=== PATIENT | male | born 1945 | race Caucasian/White ===

== ENCOUNTER 2019-03-26 04:38 | Inpatient (IN) | payer OTHER, MEDICARE, SELFPAY ==
[2019-03-26] VITALS (18 sets, daily range): BP systolic 102–136; BP diastolic 56–85; PULSE 62–89; RESP 16–26; TEMP 36.5–36.7; O2SAT 95–100; BMI 20.2
--- NOTE | 2019-03-26 04:41 | ED_ITS ---
Entered by Mercedes Trent, acting as scribe for Documented by User: Evin Arias MD 03/26/19 17:59 HPI - SOB/Dyspnea General: Chief Complaint: Shortness of Breath/Dyspnea Stated Complaint: RESP/ABD/CP Time Seen by Provider: 03/26/19 04:44 Source: EMS Mode of arrival: EMS Limitations: no limitations History of Present Illness: HPI Narrative: 73 yo m came to the er by ems for cough, chest pain and mild abd pain. Onset was an hour ago. MD elicited complaint: shortness of breath, cough and chest pain Onset (ago): hour(s) (1 hour ago) Timing: constant Severity: mild Associated symptoms: Reports fever(s); Deny chest pain or nausea Related Data: Home oxygen amount: none Review of Systems Const: Reports: fever, chills and other (cough) Eyes: Denies: change in vision ENMT: Denies: throat pain Card: Denies: chest pain Resp: Reports: shortness of breath, productive cough and wheezing (rt side) GI: Denies: nausea : Denies: difficulty urinating Musc: Denies: neck pain Skin/Breast: Denies: rash Neuro: Denies: weakness in extremities Psych: Denies: anxiety Endo: Denies: tired all the time Tae/Lymph: Denies: easy bruising All/Imm: Denies: itchy eyes PFSH ED PFSH: Statuses (acute, chronic, etc) shown below reflect problem list status as previously entered and may not be historically accurate Surgical History (Updated 03/26/19 @ 17:59 by Shade Donohue MD) H/O laminectomy (Acute) L5-S1 HEMILANIECTOMIES H/O spinal fusion (Acute) C5-C6 History of cystoscopy (Acute) Hx laparoscopic cholecystectomy (Acute) S/P ureteral stent placement (Acute) Family History (Updated 03/26/19 @ 13:43 by Turner Singh MD) Father CAD (coronary artery disease) Social History (Updated 03/26/19 @ 13:44 by Turner Singh MD) Smoking and tobacco status: current every day smoker Alcohol intake: never Substance/Drug Use: never Physical Exam Const: COMMON NORMALS: no apparent distress, oriented x3 and healthy appearing HENMT: COMMON NORMALS: normocephalic and external nose normal HEAD & SCALP: normocephalic NOSE: external nose normal Eye: COMMON NORMALS: PERRL PUPIL: Yes PERRL Neck/C-Spine: COMMON NORMALS: full ROM and no lymphadenopathy Chest: COMMONS NORMALS: inspection of chest normal Resp: COMMON NORMALS: no use of accessory muscles EFFORT & INSPECTION: Yes respiratory distress (mild) AUSCULTATION: wheezes Cardio: COMMON NORMALS: regular rate and regular rhythm RATE: regular rate RHYTHM: regular rhythm GI: COMMON NORMALS: normal to inspection, nondistended, normoactive bowel sounds, soft to palpation, non-tender and no masses PALPATION: Yes soft : COMMON NORMALS: Yes no CVA tenderness BLADDER/KIDNEY EXAM: Yes no CVA tenderness Back/Pelvis: COMMON NORMALS: no CVA tenderness THORACIC SPINE/UPPER BACK: Yes normal to inspection Extremity: COMMON NORMALS: normal to inspection, full ROM and normal capillary refill Neuro: COMMON NORMALS: oriented x3 Psych: COMMON NORMALS: mental status grossly normal and cooperative Skin: COMMON NORMALS: no rashes or lesions noted GENERAL SKIN EXAM: no rashes or lesions noted Course Vital Signs: Vital signs: Vital Signs Temperature 97.7 F 03/26/19 15:25 Pulse Rate 77 03/26/19 15:25 Respiratory Rate 20 H 03/26/19 17:03 Blood Pressure 134/75 03/26/19 15:25 Pulse Oximetry 96 03/26/19 15:25 MDM - SOB/Dyspnea MDM Narrative: Medical decision making narrative: Patient presents for shortness of breath along with COPD. Patient given breathing treatments here and care turned over to Dr. Lujan at shift change. Lab Data: Labs: Lab Results 03/26/19 03/26/19 03/26/19 Range/Units 05:10 05:10 08:17 WBC 13.9 H (4.0-10.0) 10^3/ uL RBC 3.61 L (4.1-5.3) 10^6/u L Hgb 11.7 (11.7-16.6) g/dL Hct 36.3 L (42.0-52.0) % MCV 100.6 H (80-94) fL MCH 32.4 (28.0-34.0) pg MCHC 32.2 (30.0-36.0) g/dL RDW 13.3 (12.1-15.1) % Plt Count 446 H (130-400) 10^3/c mm MPV 9.5 (7.4-10.4) fL Neut % (Auto) 80.3 % Lymph % (Auto) 10.0 % [place] % (Auto) 5.7 % Eos % (Auto) 3.1 % Baso % (Auto) 0.1 % Neut # (Auto) 11.2 H (1.8-7.7) 10^3/u L Lymph # (Auto) 1.4 (0.8-4.8) 10^3/u L [place] # (Auto) 0.8 (0.2-0.9) 10^3/u L Eos # (Auto) 0.4 (0.0-0.8) 10^3/u L Baso # (Auto) 0.0 (0.0-0.1) 10^3/u L Nucleated RBC % (a uto) 0 % Nucleated RBCs # 0.0 /100WBC Sodium 139 (136-145) mmol/L Potassium 5.0 (3.5-5.1) mmol/L Chloride 102 (98-107) mmol/L Carbon Dioxide 26 (22-29) mmol/L Anion Gap 16.0 (5-19) BUN 48 H (8-23) mg/dL Creatinine 2.6 H (0.7-1.2) mg/dL Glucose 120 H (74-106) mg/dL Calcium 9.8 (8.8-10.2) mg/Dl Total Bilirubin 0.2 (0.15-1.2) mg/dL AST 32 (0-40) U/L ALT 43 H (0-41) U/L Alkaline Phosphata se 108 (40-130) IU/L NT-Pro-B Natriuret Pep 58 (0-125) pg/mL Total Protein 6.9 (6.6-8.7) g/dL Albumin 4.6 (3.5-5.2) g/dL Globulin 2.3 (1.3-4.6) g/dL Lipase 84 H (13-60) U/L Urine Color Red (Yellow) Urine Appearance Bloody A (CLEAR) Urine pH 6.5 (5-7) Ur Specific Gravit y 1.010 (1.005-1.030) Urine Protein 1+ H (Negative) Urine Glucose (UA) Norm (Normal) Urine Ketones Negative (Negative) Urine Occult Blood 3+ H (Negative) Urine Nitrate Negative (Negative) Urine Bilirubin Neg (Negative) Urine Urobilinogen Norm (Negative) mg/dL Ur Leukocyte Grace ase 2+ H (Negative) Urine RBC >100 H (0-2) /hpf Urine WBC 25-40 H (0-5) /hpf Ur Squamous Epith Cells 0-4 H (0-5) Urine Bacteria Trace (NONE) Urine Mucus Trace Discharge Plan Discharge Patient Disposition: Placed in Observation Admit Provider: Turner Singh Clinical Impression: Acute exacerbation of chronic obstructive airways disease, Acute kidney injury, Cystitis, Benign prostatic hyperplasia, Acute urinary retention Condition: Stable Referrals: Mikaela Turk FNP-C [Primary Care Provider] - Discharge Date/Time: 03/26/19 15:15 Sign Out Sign Out Data: Patient Sign Out occurred on 03/26/19 at 07:09. Patient's care was discussed, and care was transferred from Evin Arias MD to Dileep Verduzco DO. Sign Out Comment: . Last updated by Evin Arias MD at 03/26/19 07:02 Coding Level of Care Code ED Retail Associate for Chg Fwd Exam Problem Focused Documented by User: Dileep Verduzco DO 03/26/19 15:53 HPI - SOB/Dyspnea General: Chief Complaint: Shortness of Breath/Dyspnea Stated Complaint: RESP/ABD/CP Time Seen by Provider: 03/26/19 04:44 PFSH ED PFSH: Statuses (acute, chronic, etc) shown below reflect problem list status as previously entered and may not be historically accurate Surgical History (Updated 03/26/19 @ 17:59 by Shade Donohue MD) H/O laminectomy (Acute) L5-S1 HEMILANIECTOMIES H/O spinal fusion (Acute) C5-C6 History of cystoscopy (Acute) Hx laparoscopic cholecystectomy (Acute) S/P ureteral stent placement (Acute) Family History (Updated 03/26/19 @ 13:43 by Turner Singh MD) Father CAD (coronary artery disease) Social History (Updated 03/26/19 @ 13:44 by Turner Singh MD) Smoking and tobacco status: current every day smoker Alcohol intake: never Substance/Drug Use: never Physical Exam Const: COMMON NORMALS: oriented x3 and alert GENERAL APPEARANCE: cooperative, comfortable and disheveled NUTRITIONAL APPEARANCE: underweight ORIENTATION/CONSCIOUSNESS: Yes awake, Yes oriented to person, Yes oriented to place and Yes oriented to time HENMT: COMMON NORMALS: normocephalic, head/scalp atraumatic, hearing grossly normal bilaterally, external ears normal, EAC's normal, TM's normal bilaterally and external nose normal HEAD & SCALP: normocephalic and atraumatic NOSE: external nose normal EXTERNAL EAR: Yes external ears normal EXTERNAL AUDITORY CANAL: EAC's normal TYMPANIC MEMBRANE: TM's normal bilaterally MOUTH: oral and palatal mucosa normal, lip normal and tongue normal THROAT: posterior oropharynx normal and tonsils normal Eye: COMMON NORMALS: PERRL, EOMs intact bilaterally, conjunctivae normal and no scleral icterus CONJUNCTIVA: Yes conjunctivae normal PUPIL: Yes PERRL Neck/C-Spine: COMMON NORMALS: full ROM, no lymphadenopathy, supple, no meningeal signs and thyroid normal THYROID: thyroid normal and asymmetrical Lymph: LYMPHATIC: no lymphadenopathy noted Resp: AUSCULTATION: rhonchi throughout and wheezes throughout Cardio: COMMON NORMALS: regular rate and regular rhythm RATE: regular rate RHYTHM: regular rhythm HEART SOUNDS: no murmurs GI: COMMON NORMALS: normal to inspection, nondistended, normoactive bowel sounds, soft to palpation and no hepatosplenomegaly PALPATION: Yes soft and Yes no hepatosplenomegaly : COMMON NORMALS: Yes no CVA tenderness BLADDER/KIDNEY EXAM: Yes no CVA tenderness Back/Pelvis: COMMON NORMALS: no CVA tenderness LUMBAR SPINE/LOWER BACK: Yes normal to inspection Extremity: COMMON NORMALS: no clubbing, cyanosis or edema, no calf tenderness and no pedal edema Neuro: COMMON NORMALS: oriented x3 SENSORIUM/ORIENTATION: Yes alert, Yes oriented to person, Yes oriented to place and Yes oriented to time MENINGEAL SIGNS: Yes no meningeal signs Skin: COMMON NORMALS: no rashes or lesions noted and skin turgor normal GENERAL SKIN EXAM: no rashes or lesions noted and turgor normal Course ED course: Care assumed from Dr. Arias. Chart reviewed patient has mild elevation of white count also has borderline hyperkalemia and acute kidney injury with an elevated BUN. His breathing has improved with the treatments at this point. Organ to go ahead and put him on obs have discussed with the ospitalist they will see the patient reviewed get his orders written. Vital Signs: Vital signs: Vital Signs Temperature 97.7 F 03/26/19 15:25 Pulse Rate 77 03/26/19 15:25 Respiratory Rate 20 H 03/26/19 17:03 Blood Pressure 134/75 03/26/19 15:25 Pulse Oximetry 96 03/26/19 15:25 MDM - SOB/Dyspnea Lab Data: Labs: Lab Results 03/26/19 03/26/19 03/26/19 Range/Units 05:10 05:10 08:17 WBC 13.9 H (4.0-10.0) 10^3/ uL RBC 3.61 L (4.1-5.3) 10^6/u L Hgb 11.7 (11.7-16.6) g/dL Hct 36.3 L (42.0-52.0) % MCV 100.6 H (80-94) fL MCH 32.4 (28.0-34.0) pg MCHC 32.2 (30.0-36.0) g/dL RDW 13.3 (12.1-15.1) % Plt Count 446 H (130-400) 10^3/c mm MPV 9.5 (7.4-10.4) fL Neut % (Auto) 80.3 % Lymph % (Auto) 10.0 % [place] % (Auto) 5.7 % Eos % (Auto) 3.1 % Baso % (Auto) 0.1 % Neut # (Auto) 11.2 H (1.8-7.7) 10^3/u L Lymph # (Auto) 1.4 (0.8-4.8) 10^3/u L [place] # (Auto) 0.8 (0.2-0.9) 10^3/u L Eos # (Auto) 0.4 (0.0-0.8) 10^3/u L Baso # (Auto) 0.0 (0.0-0.1) 10^3/u L Nucleated RBC % (a uto) 0 % Nucleated RBCs # 0.0 /100WBC Sodium 139 (136-145) mmol/L Potassium 5.0 (3.5-5.1) mmol/L Chloride 102 (98-107) mmol/L Carbon Dioxide 26 (22-29) mmol/L Anion Gap 16.0 (5-19) BUN 48 H (8-23) mg/dL Creatinine 2.6 H (0.7-1.2) mg/dL Glucose 120 H (74-106) mg/dL Calcium 9.8 (8.8-10.2) mg/Dl Total Bilirubin 0.2 (0.15-1.2) mg/dL AST 32 (0-40) U/L ALT 43 H (0-41) U/L Alkaline Phosphata se 108 (40-130) IU/L NT-Pro-B Natriuret Pep 58 (0-125) pg/mL Total Protein 6.9 (6.6-8.7) g/dL Albumin 4.6 (3.5-5.2) g/dL Globulin 2.3 (1.3-4.6) g/dL Lipase 84 H (13-60) U/L Urine Color Red (Yellow) Urine Appearance Bloody A (CLEAR) Urine pH 6.5 (5-7) Ur Specific Gravit y 1.010 (1.005-1.030) Urine Protein 1+ H (Negative) Urine Glucose (UA) Norm (Normal) Urine Ketones Negative (Negative) Urine Occult Blood 3+ H (Negative) Urine Nitrate Negative (Negative) Urine Bilirubin Neg (Negative) Urine Urobilinogen Norm (Negative) mg/dL Ur Leukocyte Grace ase 2+ H (Negative) Urine RBC >100 H (0-2) /hpf Urine WBC 25-40 H (0-5) /hpf Ur Squamous Epith Cells 0-4 H (0-5) Urine Bacteria Trace (NONE) Urine Mucus Trace Discharge Plan Discharge Patient Disposition: Placed in Observation Admit Provider: Turner Singh Clinical Impression: Acute exacerbation of chronic obstructive airways disease, Acute kidney injury, Cystitis, Benign prostatic hyperplasia, Acute urinary retention Condition: Stable Referrals: Mikaela Turk FNP-C [Primary Care Provider] - Discharge Date/Time: 03/26/19 15:15 Sign Out Sign Out Data: Patient Sign Out occurred on 03/26/19 at 07:09. Patient's care was discussed, and care was transferred from Evin Arias MD to Dileep Verduzco DO. Sign Out Comment: . Last updated by Evin Arias MD at 03/26/19 07:02 Coding Level of Care Code ED Retail Associate for Chg Fwd Exam Problem Focused The documentation recorded by the Twan huddleston Stephanie Lyn, accurately reflects the service I personally performed and the decisions made by me, Evin Arias MD Mar 26, 2019 04:38
--- NOTE | 2019-03-26 04:44 | XR_ITS ---
WS: [id number] CHEST XRAY TECHNIQUE: Portable chest. CLINICAL INFORMATION: cough COMPARISON: FINDINGS: Heart: Normal cardiac silhouette. Lungs: Chronic emphysematous changes. No acute pulmonary infiltrates. No focal pneumonia. Bones: Prior postoperative changes left AC joint. XR/XR chest 1V portable [id number] IMPRESSION: No acute chest findings
--- NOTE | 2019-03-26 05:14 | PC.NURSE ---
xray in room
[2019-03-26 05:16] LABS: Add RBC Morph No
[2019-03-26 05:21] LABS: Basophils % 0.1 %; Eosinophils # 0.4 10^3/uL (0.0-0.8); Eosinophils % 3.1 %; Hematocrit 36.3 % (42.0-52.0); Hemoglobin 11.7 g/dL (11.7-16.6); Lymphocytes # 1.4 10^3/uL (0.8-4.8); Mean Corpuscular HGB Conc 32.2 g/dL (30.0-36.0); Mean Corpuscular Hemoglobin 32.4 pg (28.0-34.0); Mean Corpuscular Volume 100.6 fL (80-94); Mean Platelet Volume 9.5 fL (7.4-10.4); Monocytes # 0.8 10^3/uL (0.2-0.9); Monocytes % 5.7 %; Neutrophils # 11.2 10^3/uL (1.8-7.7); Neutrophils % 80.3 %; Nucleated Red Blood Cells % 0 %; Platelet Count 446 10^3/cmm (130-400); Red Blood Count 3.61 10^6/uL (4.1-5.3); Red Cell Distribution Width 13.3 % (12.1-15.1); White Blood Count 13.9 10^3/uL (4.0-10.0)
[2019-03-26] MEDS: ipratropium-albuterol 3 mL Neb INHALATION ×2 (05:29→21:11)
[2019-03-26 05:47] LABS: Alanine Aminotransferase 43 U/L (0-41); Albumin Level 4.6 g/dL (3.5-5.2); Alkaline Phosphatase 108 IU/L (40-130); Aspartate Amino Transferase 32 U/L (0-40); Blood Urea Nitrogen 48 mg/dL (8-23); Calcium 9.8 mg/Dl (8.8-10.2); Carbon Dioxide 26 mmol/L (22-29); Chloride 102 mmol/L (98-107); Creatinine Clr Calc Pharmacy 24.4619; Globulin 2.3 g/dL (1.3-4.6); Glucose 120 mg/dL (74-106); NT Pro B Type Natriuretic Pept 58 pg/mL (0-125); Sodium 139 mmol/L (136-145); Total Bilirubin 0.2 mg/dL (0.15-1.2); Total Protein 6.9 g/dL (6.6-8.7)
--- NOTE | 2019-03-26 07:11 | PC.NURSE ---
Report received from CHRIS Mejia
[2019-03-26 07:49] LABS: Lipase 84 U/L (13-60)
--- NOTE | 2019-03-26 08:09 | PC.NURSE ---
ER physician at bedside
[2019-03-26] MEDS: sodium chloride 0.9% 1,000 ML 999 ML IV (08:27)
[2019-03-26 08:40] LABS: Add Urine Microscopic? YES; Bilirubin Urine Neg (Negative); Blood Urine 3+ (Negative); Glucose Urine UA Norm (Normal); Ketones Urine Negative (Negative); Leukocyte Esterase Urine 2+ (Negative); Nitrate Urine Negative (Negative); Protein Urine 1+ (Negative); Urine Appearance Bloody (CLEAR); Urine Color Red (Yellow); Urobilinogen Urine Norm (Negative); pH Urine 6.5 (5-7)
[2019-03-26 08:49] LABS: RBC Urine >100 /hpf (0-2)
[2019-03-26 08:50] LABS: Add Urine Culture? Yes; Bacteria Urine TRACE; Mucus Urine TRACE; Squamous Epithelial Cell Urine 0-4 (0-5); WBC Urine 25-40 /hpf (0-5)
[2019-03-26] MEDS: sodium chloride 0.9% 1,000 ML 125 ML IV (10:01)
[2019-03-26] MEDS: cefTRIAXone 1,000 MG in sodium chloride 0.9% (plus) 50 ML 100 MG IV (10:08)
--- NOTE | 2019-03-26 12:57 | CTR_ITS ---
PROCEDURE INFORMATION: Exam: CT Abdomen And Pelvis Without Contrast Exam date and time: 03/26/2019 12:58 PM Age: 73 years old Clinical indication: Other: Gross hematuria; Prior surgery; Surgery date: 6+ months; Surgery type: Gb, hernia; Additional info: Unknown TECHNIQUE: Imaging protocol: Computed tomography of the abdomen and pelvis without contrast. Total DLP: [id number] mGy-cm Radiation optimization: All CT scans at this facility use at least one of these dose optimization techniques: automated exposure control; mA and/or kV adjustment per patient size (includes targeted exams where dose is matched to clinical indication); or iterative reconstruction. COMPARISON: CT abdomen pelvis wo con [id number] 03/04/2018 1:08 PM FINDINGS: Liver: Normal. No mass. Gallbladder and bile ducts: Prior cholecystectomy. Pancreas: Normal. No ductal dilation. Spleen: Normal. No splenomegaly. Adrenals: Normal. No mass. Kidneys and ureters: Bilateral low density renal cysts, unchanged. The largest left renal upper pole cyst measures 6 cm. No kidney stone or hydronephrosis. Stomach and bowel: Unremarkable. No obstruction. No mucosal thickening. Appendix: No evidence of appendicitis. Intraperitoneal space: Unremarkable. No free air. No significant fluid collection. Vasculature: Mild aortoiliac atherosclerotic calcification. Lymph nodes: Unremarkable. No enlarged lymph nodes. Bladder: Lowery catheter in place with decompressed urinary bladder. There may be areas of bladder wall thickening. Reproductive: Mildly enlarged prostate. Bones/joints: Lumbar spine degenerative disc disease most pronounced L4-5. L1 superior endplate concave deformity, appears chronic. Soft tissues: Unremarkable. CT/CT kidney stone [id number] IMPRESSION: 1) no acute process evident. 2) Lowery catheter in place with decompressed urinary bladder. There may be areas of bladder wall thickening. Mildly enlarged prostate. 3) bilateral renal cysts, stable. Radiation Dose CTDIVOL = (mGy): DLP = [id number] (mGy-cm)
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
--- NOTE | 2019-03-26 14:06 | PC.NURSE ---
pt given food and fluid
[2019-03-26] MEDS: fluoxetine 20 mg Capsule 60 MG PO (16:55)
[2019-03-26] MEDS: folic acid 1 mg Tablet PO (16:55)
[2019-03-26] MEDS: sodium chloride 0.9% 1,000 ML 100 ML IV (16:56)
[2019-03-26] MEDS: pneumococcal (23 valent) SDV 0.5 mL IM (16:56)
[2019-03-26] MEDS: tamsulosin 0.4 mg Capsule 0.8 MG PO (17:02)
[2019-03-26] MEDS: morphine 4 mg/mL SDV 1 mL 1 MG IV (17:03)
--- NOTE | 2019-03-26 17:31 | PM.CONSULT ---
Providers/Reason For Consult Consulting Physican/Specialty*: Donohue/Urology Reason for Consult*: Refractory Gross Hematuria Urinary Retention Attending Physician: Turner Singh MD Primary Care Provider: Mikaela Turk History of Present Illness History of Present Illness Michael Herrera JR is a 73 year old male for which Urology Consultation was made for URINARY RETENTION AND GROSS HEMATURIA. BACKGROUND INFORMATION His first and only evaluation to date by me was 02/12/19 after an [facility] ED visit for URINARY RETENTION. Summary of ED findings; on 01/22/19: Evidence of UTI at time. He DID have a luna placed with up to 800 cc returned. Treated with double dose TAMSULOSIN and Urology consult requested. Discharged with cath in place Records from [place]: : CT scan- Bilateral renal cyst, large diverticulum involving the right side of the urinary bladder, hypertrophy prostate gland. No evidence of UUT abnormality. Summary of my visit on 02/12/19: Complains of voiding issues for years dating back to childhood but will not give any further details. Complains of intermittent burning with urination for greater than 1 year. Prior to the retention episode he was having small frequent voids for approximately 2 weeks. He does note a baseline he has urgency, frequency, intermittency, hesitancy, nocturia (cannot describe how frequent his nocturia is). Notes a history of kidney stones approximately 3 to 4 years ago. Also notes a history of UTIs. History of gross hematuria that has occurred within the last 6 months that he describes as total. Is a smoker, 1 pack/day for 65 years. recommended cystoscopy for evaluation of hematuria and history of gross hematuria. CYSTOSCOPY: 2% lidocaine jelly, informed consent obtained, routine prep. ?Findings:Typical catheter inflammatory changes. 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 ?Prostate was not huge. Discussion: voiding trial: Did very well. ?Voided about two thirds of what was placed into his bladder. ?Trained in [facility] and did great. Prescription provided for catheters for [facility]. Recommend follow-up in 2 months with flow rate, PVR, AUA symptom score but call sooner if he is having difficulty passing catheter UTI symptoms etc. He has not had his followup appointment yet but is scheduled. Presented this admission for difficulty with self cathing, grossly bloody urine, clinical concern for pyelonephritis, and failing to manage well as outpatient. The history he provided left out most of the salient details described above regarding my visit with him. Admitted for treatment of the above. Since admission the nursing staff could not get the bladder cleared with manual irrigation. I requested a 22 fr 3-way luna to be placed and CBI with NS to be initiated. Repeat CT scan showed only some bladder wall thickening. I reviewed it Creatinine at admission was 2.6. on 01/22/19 was 1.1 Review of Systems Const: Reports: fatigue and malaise Eyes: Denies: change in vision ENMT: Denies: swelling of lips/tongue or change in hearing Card: Denies: chest pain or palpitations Resp: Denies: shortness of breath : Reports: flank pain, difficulty urinating, blood in urine and other (dysuria) Musc: Reports: neck pain, back pain and muscle weakness Neuro: Reports: weakness in extremities Psych: Reports: anxiety Endo: Denies: excessive thirst or flushing Tae/Lymph: Denies: tender lymph nodes All/Imm: Denies: hives Meds/Allergies Home Medications and Allergies Home Medications Medication Instructions Recorded Confirmed Type Sleeping 50 mg PO DAILY 03/26/19 03/26/19 History acetaminophen 1,000 mg PO QID PRN MDD 4000 MG 03/26/19 03/26/19 History alum-mag hydroxide-simeth [Mylanta 15 ml PO QID PRN 03/26/19 03/26/19 History Maximum Strength] carbamide peroxide 3 drp OTIC (EAR) BID 03/26/19 03/26/19 History diclofenac sodium 75 mg PO BID 03/26/19 03/26/19 History docusate sodium [Colace] 100 mg PO BID 03/26/19 03/26/19 History fluoxetine [Prozac] 60 mg PO DAILY 03/26/19 03/26/19 History folic acid 1 mg PO DAILY 03/26/19 03/26/19 History furosemide [Lasix] 20 mg PO QAM PRN 03/26/19 03/26/19 History guaifenesin See Rx Instructions .ROUTE .COMPLEX 03/26/19 03/26/19 History ipratropium-albuterol 1 puff INHALATION QID MDD 6 PUFFS 03/26/19 03/26/19 History ipratropium-albuterol See Rx Instructions .ROUTE .COMPLEX 03/26/19 03/26/19 History lanolin idzmprd-tq-z.pet-ceres 1 applic TOPICAL DAILY 03/26/19 03/26/19 History [Eucerin] magnesium citrate 150 ml PO DAILY PRN 03/26/19 03/26/19 History multivitamin 1 tab PO DAILY 03/26/19 03/26/19 History nitrofurantoin monohyd/m-cryst 100 mg PO BID 03/26/19 03/26/19 History omeprazole 20 mg PO BID 03/26/19 03/26/19 History tamsulosin [Flomax] 0.8 mg PO QPM 03/26/19 03/26/19 History Allergies Allergy/AdvReac Type Severity Reaction Status Date / Time nicotine Allergy Mild SKIN Verified 03/26/19 13:02 REACTION propoxyphene [From Darvon] Allergy Unknown Verified 03/26/19 04:47 Current Medications Current Medications Generic Name Dose Route Start Last Admin Trade Name Freq PRN Reason Stop Dose Admin Fluoxetine HCl 60 mg 03/26/19 15:19 03/26/19 16:55 Prozac PO 60 mg DAILY LATONYA Administration Folic Acid 1 mg 03/26/19 15:19 03/26/19 16:55 Folic Acid PO 1 mg DAILY LATONYA Administration Sodium Chloride 1,000 mls @ 100 mls/hr 03/26/19 15:19 03/26/19 16:56 Sodium Chloride 0.9% IV 100 mls/hr .Q10H LATONYA Administration Morphine Sulfate 1 mg 03/26/19 15:19 03/26/19 17:03 Morphine IV 1 mg Q4H PRN Administration SEVERE PAIN Tamsulosin HCl 0.8 mg 03/26/19 18:00 03/26/19 17:02 Flomax PO 0.8 mg QPM LATONYA Administration PFSH Acute PFSH: Statuses (acute, chronic, etc) shown below reflect problem list status as previously entered and may not be historically accurate Medical History Acute urinary retention (Acute) Ascending aortic aneurysm (Acute) Bradycardia (Acute) Compression fracture of L1 lumbar vertebra (Acute) COPD (chronic obstructive pulmonary disease) (Acute) Cystitis (Acute) GERD (gastroesophageal reflux disease) (Acute) Gross hematuria (Acute) HTN (hypertension) (Acute) Macrocytic anemia (Acute) Multilevel degenerative disc disease (Acute) Surgical History H/O laminectomy (Acute) L5-S1 HEMILANIECTOMIES H/O spinal fusion (Acute) C5-C6 History of cystoscopy (Acute) Hx laparoscopic cholecystectomy (Acute) S/P ureteral stent placement (Acute) Family History Father CAD (coronary artery disease) Social History Smoking and tobacco status: current every day smoker Alcohol intake: never Substance/Drug Use: never Current occupational status: disabled Vitals/I&O/Wt Last Vital Signs Temp 97.7 F 03/26/19 15:25 Pulse 77 03/26/19 15:25 Resp 20 H 03/26/19 17:03 BP 134/75 03/26/19 15:25 Pulse Ox 96 03/26/19 15:25 Weight last 48 hrs Weight 141 lb Physical Exam Const: COMMON NORMALS: well nourished GENERAL APPEARANCE: cooperative and well developed ORIENTATION/CONSCIOUSNESS: Yes oriented to person, Yes oriented to place and Yes oriented to time HENMT: COMMON NORMALS: normocephalic and head/scalp atraumatic HEAD & SCALP: normocephalic and atraumatic Neck/C-Spine: GENERAL: Yes trachea midline Chest: COMMONS NORMALS: inspection of chest normal Resp: COMMON NORMALS: normal respiratory effort EFFORT & INSPECTION: No uses accessory muscles Neuro: SENSORIUM/ORIENTATION: Yes oriented to person, Yes oriented to place and Yes oriented to time MOTOR EXAM: No tremor Psych: COMMON NORMALS: cooperative and affect normal Urinary Catheter Management^: Luna: Cath Placed During This Visit: no Data Labs: Other Labs: All Labs last 24 hrs except CBC/BMP 03/26/19 03/26/19 03/26/19 05:10 05:10 08:17 RBC 3.61 L MCV 100.6 H MCH 32.4 MCHC 32.2 RDW 13.3 MPV 9.5 Neut % (Auto) 80.3 Lymph % (Auto) 10.0 [place] % (Auto) 5.7 Eos % (Auto) 3.1 Baso % (Auto) 0.1 Neut # (Auto) 11.2 H Lymph # (Auto) 1.4 [place] # (Auto) 0.8 Eos # (Auto) 0.4 Baso # (Auto) 0.0 Nucleated RBC % (a uto) 0 Nucleated RBCs # 0.0 Calcium 9.8 Total Bilirubin 0.2 AST 32 ALT 43 H Alkaline Phosphata se 108 NT-Pro-B Natriuret Pep 58 Total Protein 6.9 Albumin 4.6 Globulin 2.3 Lipase 84 H Urine Color Red Urine Appearance Bloody A Urine pH 6.5 Ur Specific Gravit y 1.010 Urine Protein 1+ H Urine Glucose (UA) Norm Urine Ketones Negative Urine Occult Blood 3+ H Urine Nitrate Negative Urine Bilirubin Neg Urine Urobilinogen Norm Ur Leukocyte Grace ase 2+ H Urine RBC >100 H Urine WBC 25-40 H Ur Squamous Epith Cells 0-4 H Urine Bacteria Trace Urine Mucus Trace A&P Assessment and plan (1) Acute urinary retention: Diagnosed 01/22/19: 800 cc Luna then [facility] with initially excellent performance then progressive difficulty passing Status: Acute Code(s): R33.8 - Other retention of urine (2) Cystitis: Present at ED visit 01/22/19 Status: Acute Code(s): N30.90 - Cystitis, unspecified without hematuria (3) Gross hematuria: Problematic in urinary retention management via [facility] Negative: Cystoscopy 02/12/19, CT x 2 and this visit Status: Acute Code(s): R31.0 - Gross hematuria Consult Attestations Medical Necessity Statement: Requiring agressive bladder irrigation and clot removal with CBI Coding Level of Care Code Established 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
--- NOTE | 2019-03-26 19:26 | PC.NURSE ---
THIS NURSE MANUALLY IRRIGATED PATIENT'S BLADDER, MULTIPLE SMALL AND LARGE CLOTS RETURNED. DR. BONNER AND DR. DAVID NOTIFIED, ORDERS RECEIVED TO START CBI. HEMATURIA CATHETER INSERTED USING STERILE TECHNIQUE, BRIGHT RED BLOOD RETURNED ALONG WITH A LARGE CLOT. PATIENT TOLERATED WELL.
[2019-03-27] VITALS (14 sets, daily range): BP systolic 113–153; BP diastolic 52–75; PULSE 61–83; RESP 15–18; TEMP 36.6–37.1; O2SAT 92–97
[2019-03-27] MEDS: sodium chloride 0.9% 1,000 ML 100 ML IV (04:15)
[2019-03-27 05:30] LABS: Basophils % 0.1 %; Eosinophils % 0.1 %; Hemoglobin 9.9 g/dL (11.7-16.6); Lymphocytes # 1.7 10^3/uL (0.8-4.8); Lymphocytes % 9.9 %; Mean Corpuscular HGB Conc 31.9 g/dL (30.0-36.0); Mean Corpuscular Hemoglobin 32.5 pg (28.0-34.0); Mean Corpuscular Volume 101.6 fL (80-94); Mean Platelet Volume 9.8 fL (7.4-10.4); Monocytes # 1.1 10^3/uL (0.2-0.9); Monocytes % 6.6 %; Neutrophils # 13.9 10^3/uL (1.8-7.7); Neutrophils % 82.8 %; Nucleated Red Blood Cells % 0 %; Platelet Count 360 10^3/cmm (130-400); Red Blood Count 3.05 10^6/uL (4.1-5.3); Red Cell Distribution Width 13.7 % (12.1-15.1); White Blood Count 16.8 10^3/uL (4.0-10.0)
[2019-03-27 05:34] LABS: Add RBC Morph No
[2019-03-27 05:42] LABS: Alanine Aminotransferase 28 U/L (0-41); Albumin Level 3.3 g/dL (3.5-5.2); Alkaline Phosphatase 85 IU/L (40-130); Anion Gap 10.4 (5-19); Aspartate Amino Transferase 18 U/L (0-40); Blood Urea Nitrogen 29 mg/dL (8-23); Calcium 9.1 mg/Dl (8.8-10.2); Carbon Dioxide 24 mmol/L (22-29); Chloride 107 mmol/L (98-107); Globulin 2.7 g/dL (1.3-4.6); Glucose 102 mg/dL (74-106); Potassium 4.4 mmol/L (3.5-5.1); Sodium 137 mmol/L (136-145); Total Bilirubin 0.2 mg/dL (0.15-1.2)
[2019-03-27 06:06] LABS: INR 1.01 (0.8-1.2)
[2019-03-27] MEDS: multivitamin therapeutic Tablet 1 TAB PO (09:44)
[2019-03-27] MEDS: fluoxetine 20 mg Capsule 60 MG PO (09:45)
[2019-03-27] MEDS: pantoprazole DR 40 mg Tablet PO (09:45)
[2019-03-27] MEDS: predniSONE 20 mg Tablet 40 MG PO (09:46)
[2019-03-27] MEDS: folic acid 1 mg Tablet PO (09:46)
[2019-03-27] MEDS: cefTRIAXone 1,000 MG in sodium chloride 0.9% (plus) 50 ML 100 MG IV (10:17)
--- NOTE | 2019-03-27 10:29 | PC.NURSE ---
CBI 2800 fluid output from luna
--- NOTE | 2019-03-27 11:35 | P.DS_ITS ---
Discharge Providers Date of Admission: 03/26/19 13:35 Date of Discharge: 03/27/19 Attending Provider at Admission: Turner Singh MD Attending Provider at Discharge: Turner Singh MD Primary Care Provider: Mikaela Turk Diagnoses at Discharge Discharge Diagnosis (1) Acute urinary retention: Status: Acute (2) Cystitis: Status: Acute (3) Gross hematuria: Status: Acute Reason for Visit Reason for Visit: Reason For Visit: RESP/ABD/CP Physical Exam Urinary Catheter Management^: Lowery: Cath Placed During This Visit: no Discharge Data Data Completed and Pending: Completed Studies During Hospitalization Category Date Time Status CT kidney stone 7 4176 Urgent Cat Scan 03/26/19 12:57 Completed XR chest 1V farhad ble 19947 Urgent Exams 03/26/19 04:44 Completed Pending at discharge Category Date Time Status Anti-HIV 1 and 2 AB & P24 AG Stat Lab 03/27/19 11:16 Received Basic Metabolic P lauren AM LABS Lab 03/28/19 04:00 Ordered Basic Metabolic P lauren AM LABS Lab 03/29/19 04:00 Ordered Blood Culture Sta t Lab 03/27/19 11:16 Results Complete Blood Co unt w/Auto AM LABS Lab 03/28/19 04:00 Ordered Complete Blood Co unt w/Auto AM LABS Lab 03/29/19 04:00 Ordered Comprehensive Met abolic Panel AM LA BS Lab 03/28/19 04:00 Ordered Comprehensive Met abolic Panel AM LA BS Lab 03/29/19 04:00 Ordered Hepatic Panel Com prehensive Stat Lab 03/27/19 11:16 Received Urine Culture Sta t Lab 03/26/19 08:17 Received Labs from last 24 hours 03/27/19 03/27/19 03/27/19 04:10 04:10 04:10 WBC 16.8 H RBC 3.05 L Hgb 9.9 L Hct 31.0 L MCV 101.6 H MCH 32.5 MCHC 31.9 RDW 13.7 Plt Count 360 MPV 9.8 Neut % (Auto) 82.8 Lymph % (Auto) 9.9 Flagler % (Auto) 6.6 Eos % (Auto) 0.1 Baso % (Auto) 0.1 Neut # (Auto) 13.9 H Lymph # (Auto) 1.7 [place] # (Auto) 1.1 H Eos # (Auto) 0.0 Baso # (Auto) 0.0 Nucleated RBC % (a uto) 0 Nucleated RBCs # 0.0 PT 13.60 H INR 1.01 Sodium 137 Potassium 4.4 Chloride 107 Carbon Dioxide 24 Anion Gap 10.4 BUN 29 H Creatinine 1.1 Glucose 102 Calcium 9.1 Total Bilirubin 0.2 AST 18 ALT 28 Alkaline Phosphata se 85 Total Protein 6.0 L Albumin 3.3 L Globulin 2.7 Vitals: Last Vital Signs Temp 98.8 F 03/27/19 11:17 Pulse 67 03/27/19 11:17 Resp 17 03/27/19 11:17 BP 153/75 03/27/19 11:17 Pulse Ox 92 03/27/19 11:17 Discharge Plan Discharge Condition: Stable Prescriptions: No Action ipratropium-albuterol 0.5 mg-3 mg(2.5 mg base)/3 mL Solution For Nebulization See Rx Instructions .ROUTE .COMPLEX RF: 0 acetaminophen 500 mg Tablet 1,000 mg PO QID MDD 4000 MG PRN (Reason: Pain) RF: 0 tamsulosin [Flomax] 0.4 mg Capsule 0.8 mg PO QPM RF: 0 carbamide peroxide 6.5 % Drops 3 drp otic (ear) BID RF: 0 docusate sodium [Colace] 100 mg Capsule 100 mg PO BID RF: 0 omeprazole 20 mg Capsule,Delayed Release(Dr/Ec) 20 mg PO BID RF: 0 magnesium citrate Solution 150 ml PO DAILY PRN (Reason: UNKNOWN) RF: 0 diclofenac sodium 75 mg Tablet,Delayed Release (Dr/Ec) 75 mg PO BID RF: 0 folic acid 1 mg Tablet 1 mg PO DAILY RF: 0 furosemide [Lasix] 20 mg Tablet 20 mg PO QAM PRN (Reason: Edema) RF: 0 fluoxetine [Prozac] 20 mg Capsule 60 mg PO DAILY RF: 0 guaifenesin 400 mg Tablet See Rx Instructions .ROUTE .COMPLEX RF: 0 nitrofurantoin monohyd/m-cryst 100 mg Capsule 100 mg PO BID RF: 0 Eucerin Cream 1 applic TOPICAL DAILY RF: 0 ipratropium-albuterol 20-100 mcg/actuation Mist 1 puff INHALATION QID MDD 6 PUFFS RF: 0 multivitamin Tablet 1 tab PO DAILY RF: 0 Mylanta Maximum Strength 400-400-40 mg/5 mL Suspension 15 ml PO QID PRN (Reason: UNKNOWN) RF: 0 Sleeping 50 mg Capsule 50 mg PO DAILY RF: 0 Referrals: Mikaela Turk FNP-C [Primary Care Provider] - Coding Level of Care Code Acute Vehicle Check In Clerk for g Fwd Diagnoses Acute urinary retention R33.8 Cystitis N30.90 Gross hematuria R31.0
[2019-03-27 12:23] LABS: Hepatitis A Antibody IgM. Non-Reactive (Nonreactive); Hepatitis B Surface AB. 3.5 (0-8.5); Hepatitis C Virus Antibody Non-Reactive (Nonreactive)
--- NOTE | 2019-03-27 12:27 | PC.NURSE ---
iv fluids pt refusing to let me put new bag of fluids on him.
--- NOTE | 2019-03-27 12:28 | PC.NURSE ---
cbi 400ml of pink fluid out of luna.
--- NOTE | 2019-03-27 12:51 | PC.CHAP ---
Pastoral Care Encounter/Spiritual Assessment Type of Contact [] Declined perl developer visit [] Patient/Family/Request visit [] Outpatient visit [] Follow-up visit [] Physician referral [] Code/Alert [x] Routine visit [] Staff referral [] Actively dying [] Patient sleeping [] Family support [] [] Out of room [] Palliative care [] [] Receiving care in room [] Pre-surgical visit [] Trauma [] Long length of stay [] ICU visit [] Other: Relational/Emotional Strength [x] Patient feels connected with others/family/visitors/staff [] Distress [] Loneliness/isolation [] Abandonment Spirituality of Patient [] Person of Lou [] Attends Hindu of their Lou [x] Believes in Prayer [] Reads Bible or Latter Day materials [] There are Spiritual issues to be addressed Rn Internal Medicine Interventions [x] Prayer [x] Active listening [x] Non-anxious presence [x] Spiritual/emotional support [] Crisis/trauma care [] Spiritual counseling [] Bereavement support [] Provided bereavement packet [] Provided Bible/devotional materials [] Provided toy/stuffed animal, coloring book to patient or family member [x] Completed spiritual assessment [] Provided Communion [] Anointing/[place] [] Salvation [] Other: Impact on Illness or Injury [] Angry [] Fearful [] Anxious [] Often cries [] Exhaustion [] Unable to work [] Unable to attend pentecostal [] Unable to walk/stand [] Unable to read [] Unable to drive [] Unable to eat/drink [] Unable to sleep [] Unable to be with family [x] Other: Not any observed. Summary Rn Internal Medicine Jeny visited patient and the patient was wanting to rest and sleep, but wanted prayer. Time spent with patient 5 minutes
--- NOTE | 2019-03-27 12:59 | P.PN_ITS ---
Subjective Subjective: Interval history: This morning patient is lying in bed, states that he is doing well, breathing has improved, last night he had gross hematuria, with blood clots, requiring continuous bladder irrigation, this morning his urine is light pink color, no more blood clots, denies any back pain, did work with observational therapy this morning, however when physical therapy came by to see him, he is a bit irritable as he had not received his morning meds, now is doing fine had apologized, has no other significant complaints this morning Vitals/I&O/Wt Last Vital Signs Temp 98.8 F 03/27/19 11:17 Pulse 67 03/27/19 11:45 Resp 16 03/27/19 11:39 BP 153/75 03/27/19 11:17 Pulse Ox 95 03/27/19 11:39 03/26/19 03/27/19 03/27/19 22:59 06:59 14:59 Intake Total 458 / 458 1616.667 / 2074.667 776.667 / 776.667 Output Total 500 / 500 1000 / 1500 440 / 440 Balance -42 / -42 616.667 / 574.667 336.667 / 336.667 Weight last 48 hrs Weight 65.499 kg Weight 63.049 kg Weight 63.957 kg Physical Exam Const: COMMON NORMALS: no apparent distress, oriented x3, no limitations and alert HENMT: COMMON NORMALS: normocephalic HEAD & SCALP: normocephalic Eye: COMMON NORMALS: PERRL and EOMs intact bilaterally PUPIL: Yes PERRL Neck/C-Spine: COMMON NORMALS: no JVD Lymph: LYMPHATIC: no lymphadenopathy noted Chest: COMMONS NORMALS: inspection of chest normal Resp: COMMON NORMALS: normal respiratory effort, no retractions, no use of accessory muscles and clear to auscultation bilaterally AUSCULTATION: clear to auscultation bilaterally Cardio: COMMON NORMALS: no JVD, regular rate, regular rhythm, S1 normal heart sound, S2 normal heart sound, no gallops, no clicks, no murmurs and no rub RATE: regular rate RHYTHM: regular rhythm HEART SOUNDS: S1 normal and S2 normal GI: COMMON NORMALS: normal to inspection, nondistended, normoactive bowel sounds, soft to palpation, non-tender and no hepatosplenomegaly PALPATION: Yes soft and Yes no hepatosplenomegaly : COMMON NORMALS: Yes no CVA tenderness BLADDER/KIDNEY EXAM: Yes no CVA tenderness Back/Pelvis: COMMON NORMALS: no CVA tenderness Extremity: COMMON NORMALS: normal to inspection and no pedal edema Neuro: COMMON NORMALS: oriented x3 and CN's II-XII intact bilaterally SENSORIUM/ORIENTATION: Yes alert Psych: COMMON NORMALS: mental status grossly normal Urinary Catheter Management^: Lowery: Cath Placed During This Visit: no Data Micro: Micro: Microbiology 03/27/19 11:16 Blood Culture - Pr eliminary Blood SPECIMEN [facility] 03/27/19 11:16 Blood Culture - Pr eliminary Blood SPECIMEN [facility] A&P Assessment and plan (1) Acute urinary retention: - Patient is voiding on his own with high postvoid residual, self cathing himself -Dr. Donohue on consult -Continue continuous bladder irrigation -Continue antibiotics as above -CT abdomen pelvis pelvis pending no kidney stones Status: Acute Code(s): R33.8 - Other retention of urine (2) Cystitis: -Rocephin for right pyelonephritis, given right flank pain -Patient's previous urine culture showed group B strep Status: Acute Code(s): N30.90 - Cystitis, unspecified without hematuria (3) Gross hematuria: -Hemoglobin did drop to 9.9, will continue to monitor Status: Acute Code(s): R31.0 - Gross hematuria (4) Pyelonephritis of right kidney: -Continue Rocephin, follow urine culture Status: Acute Code(s): N12 - Tubulo-interstitial nephritis, not specified as acute or chronic (5) Central spinal stenosis: Continue physical therapy Status: Acute Code(s): M48.00 - Spinal stenosis, site unspecified Attestations Medical Necessity Statement*: Requires continued hospitalization, for gross hematuria, right pyelonephritis, central spinal stenosis with weakness Coding Level of Care Code Acute Licensed Mental Health Counselor for [facility] Diagnoses Acute urinary retention R33.8 Cystitis N30.90 Gross hematuria R31.0 Pyelonephritis of right kidney N12 Central spinal stenosis M48.00
--- NOTE | 2019-03-27 13:47 | PC.NURSE ---
IV FLUIDS I TALKED WITH AND TOLD HIM ABOUT PT REFUSING IV FLUIDS.
--- NOTE | 2019-03-27 15:09 | PM.PN ---
Subjective Subjective: Interval history: Urology follow-up Patient seems to be agitated this afternoon regarding what he interprets as the [facility] not helping him. From a urologic perspective though he seems to be doing well. His urine is cleared with minimal CBI. It was turned off while I was there and the urine remained clear. I think given the poor performance regarding SCIC and his overall poor compliance it would make more sense to leave the catheter in place at discharge and follow him up in a couple weeks in my office. Oral antibiotics, TAMSULOSIN should be continued at discharge. Medications: Reviewed: Yes Vitals/I&O/Wt Last Vital Signs Temp 98.8 F 03/27/19 11:17 Pulse 67 03/27/19 11:45 Resp 16 03/27/19 11:39 BP 153/75 03/27/19 11:17 Pulse Ox 95 03/27/19 11:39 03/27/19 03/27/19 03/27/19 06:59 14:59 22:59 Intake Total 1616.667 / 2074.667 896.667 / 896.667 Output Total 1000 / 1500 440 / 440 Balance 616.667 / 574.667 456.667 / 456.667 Weight last 48 hrs Weight 144 lb 6.4 oz Weight 139 lb Weight 141 lb Physical Exam Const: COMMON NORMALS: negative for healthy appearing GENERAL APPEARANCE: cooperative NUTRITIONAL APPEARANCE: thin and underweight ORIENTATION/CONSCIOUSNESS: Yes awake and Yes confused GI: COMMON NORMALS: non-tender : BLADDER/KIDNEY EXAM: Yes catheter in place Catheter type (Male): other (Clear) Psych: ATTITUDE: Yes agitated Urinary Catheter Management^: Lowery: Cath Placed During This Visit: no Data Micro: Micro: Microbiology 03/26/19 08:17 Urine Culture - Pr eliminary Urine,Clean Catch 03/27/19 11:16 Blood Culture - Pr eliminary Blood SPECIMEN COLLE ISAIA[facility] 03/27/19 11:16 Blood Culture - Pr eliminary Blood SPECIMEN [facility] A&P Assessment and plan (1) Gross hematuria: Severe enough to create catheter occlusion. Resolved with manual irrigation with large bore Lowery catheter and approximately 24 hours of continuous bladder irrigation. Status: Resolved Code(s): R31.0 - Gross hematuria (2) Cystitis: Diagnosed at time of retention December 2018. Present again with readmission February 2019 for clot retention, pyelonephritis. Responding well to antibiotics. Status: Acute Code(s): N30.90 - Cystitis, unspecified without hematuria (3) Acute urinary retention: Did not do well with initial attempted SCIC. Recommend leaving Lowery catheter in place at discharge with follow-up with me in a couple week Status: Acute Code(s): R33.8 - Other retention of urine Attestations Medical Necessity Statement*: See attending Coding Level of Care Code Acute Realty Loan Specialist for Efraíng Fwd Exam Problem Focused Diagnoses Gross hematuria R31.0 Cystitis N30.90 Acute urinary retention R33.8
--- NOTE | 2019-03-27 16:12 | PC.NURSE ---
CBI 1515 emptied out of luna from cbi
[2019-03-27] MEDS: acetaminophen 325 mg Tablet 650 MG PO (17:30)
[2019-03-27] MEDS: tamsulosin 0.4 mg Capsule 0.8 MG PO (17:30)
[2019-03-27 17:43] LABS: Hepatitis B Surface Antigen. Non-Reactive (Nonreactive)
[2019-03-27] MEDS: morphine 4 mg/mL SDV 1 mL 1 MG IV (19:14)
[2019-03-27] MEDS: ipratropium-albuterol 3 mL Neb INHALATION (22:57)
[2019-03-28] VITALS (11 sets, daily range): BP systolic 118–153; BP diastolic 58–83; PULSE 52–83; RESP 16–18; TEMP 36.6–37.3; O2SAT 92–96
[2019-03-28 05:53] LABS: Basophils % 0.1 %; Eosinophils % 0.1 %; Hemoglobin 10.1 g/dL (11.7-16.6); Mean Corpuscular HGB Conc 32.6 g/dL (30.0-36.0); Mean Corpuscular Hemoglobin 32.8 pg (28.0-34.0); Mean Corpuscular Volume 100.6 fL (80-94); Mean Platelet Volume 10.1 fL (7.4-10.4); Monocytes % 6.6 %; Neutrophils # 11.5 10^3/uL (1.8-7.7); Neutrophils % 78.7 %; Nucleated Red Blood Cells % 0 %; Platelet Count 336 10^3/cmm (130-400); Red Blood Count 3.08 10^6/uL (4.1-5.3); Red Cell Distribution Width 13.6 % (12.1-15.1); White Blood Count 14.6 10^3/uL (4.0-10.0)
[2019-03-28 06:28] LABS: Alanine Aminotransferase 33 U/L (0-41); Albumin Level 3.6 g/dL (3.5-5.2); Alkaline Phosphatase 80 IU/L (40-130); Aspartate Amino Transferase 23 U/L (0-40); Blood Urea Nitrogen 21 mg/dL (8-23); Calcium 9.3 mg/Dl (8.8-10.2); Carbon Dioxide 24 mmol/L (22-29); Chloride 106 mmol/L (98-107); Globulin 1.8 g/dL (1.3-4.6); Glucose 81 mg/dL (74-106); Sodium 139 mmol/L (136-145); Total Bilirubin 0.2 mg/dL (0.15-1.2); Total Protein 5.4 g/dL (6.6-8.7)
[2019-03-28] MEDS: fluoxetine 20 mg Capsule 60 MG PO (09:16)
[2019-03-28] MEDS: folic acid 1 mg Tablet PO (09:17)
[2019-03-28] MEDS: pantoprazole DR 40 mg Tablet PO (09:17)
[2019-03-28] MEDS: predniSONE 20 mg Tablet 40 MG PO (09:17)
[2019-03-28] MEDS: multivitamin therapeutic Tablet 1 TAB PO (09:17)
[2019-03-28] MEDS: cefTRIAXone 1,000 MG in sodium chloride 0.9% (plus) 50 ML 100 MG IV (09:21)
--- NOTE | 2019-03-28 11:21 | PC.NURSE ---
I did not leaf size picker breakfast tray, but patient stated he did not eat any breakfast. Patient stated he rarely eats breakfast but just drank coffee.
--- NOTE | 2019-03-28 11:38 | PC.NURSE ---
Patient bladder irrigated per physician order. Irrigated with 360 cc NS. Few smaller clots and 350 cc light pink urine returned. CBI initiated. Patient tolerated well.
--- NOTE | 2019-03-28 11:39 | P.PN_ITS ---
Subjective Subjective: Interval history: This morning patient is doing well, lying in bed, has no significant complaints, but overnight had hematuria with blood clots, no fevers, no chills. This morning his Lowery catheter is blood-tinged with blood clots. Nurses will contact Dr. Donohue. Medications: Reviewed: Yes Vitals/I&O/Wt Last Vital Signs Temp 98.2 F 03/28/19 11:19 Pulse 57 L 03/28/19 11:19 Resp 16 03/28/19 11:19 BP 149/79 03/28/19 11:19 Pulse Ox 92 03/28/19 11:19 03/27/19 03/28/19 03/28/19 22:59 06:59 14:59 Intake Total 1150 / 2046.667 240 / 240 Balance 1150 / 2046.667 240 / 240 Weight last 48 hrs Weight 63.231 kg Weight 65.499 kg Weight 63.049 kg Physical Exam Const: COMMON NORMALS: no apparent distress, oriented x3, no limitations and alert EXAM LIMITATIONS: no altered mental status GENERAL APPEARANCE: cooperative and well kempt ORIENTATION/CONSCIOUSNESS: Yes awake, Yes oriented to person and Yes oriented to place Neck/C-Spine: COMMON NORMALS: no JVD Lymph: LYMPHATIC: no lymphadenopathy noted Chest: COMMONS NORMALS: inspection of chest normal Resp: COMMON NORMALS: normal respiratory effort, no retractions, no use of accessory muscles and clear to auscultation bilaterally EFFORT & INSPECTION: Yes able to speak in complete sentences and No decreased respiratory effort AUSCULTATION: clear to auscultation bilaterally Cardio: COMMON NORMALS: no JVD, regular rate, regular rhythm, S1 normal heart sound, S2 normal heart sound, no gallops, no clicks, no murmurs and no rub RATE: regular rate RHYTHM: regular rhythm HEART SOUNDS: S1 normal and S2 normal GI: COMMON NORMALS: normal to inspection, nondistended, normoactive bowel sounds, soft to palpation, non-tender, no hepatosplenomegaly, no masses and no bruits AUSCULTATION: Yes normoactive bowel sounds PALPATION: Yes soft, No tender, No guarding and Yes no hepatosplenomegaly PERCUSSION: normal to percussion : COMMON NORMALS: Yes no CVA tenderness BLADDER/KIDNEY EXAM: Yes no CVA tenderness and Yes CVA tenderness on the right Back/Pelvis: COMMON NORMALS: no CVA tenderness GENERAL BACK: Yes CVA tenderness Extremity: COMMON NORMALS: normal to inspection, normal capillary refill and no pedal edema Neuro: COMMON NORMALS: oriented x3 SENSORIUM/ORIENTATION: Yes alert, Yes oriented to person and Yes oriented to place Psych: APPEARANCE: Yes well kempt Urinary Catheter Management^: Lowery: Cath Placed During This Visit: no Data Micro: Micro: Microbiology 03/27/19 11:16 Blood Culture - Pr eliminary Blood NEGATIVE TO ROSY E 03/27/19 11:16 Blood Culture - Pr eliminary Blood NEGATIVE TO ROSY E 03/26/19 08:17 Urine Culture - Pr eliminary Urine,Clean Catch A&P Assessment and plan (1) Acute urinary retention: -Still have bloody urine, with blood clots, will contact Dr. Donohue -Dr. Donohue on consult -Continue continuous bladder irrigation on hold for now -Continue antibiotics as above -CT abdomen pelvis pelvis pending no kidney stones Status: Acute Code(s): R33.8 - Other retention of urine (2) Cystitis: -Rocephin for right pyelonephritis, given right flank pain -Patient's previous urine culture showed group B strep Status: Acute Code(s): N30.90 - Cystitis, unspecified without hematuria (3) Gross hematuria: -Hemoglobin did drop to 10.1, will continue to monitor Status: Resolved Code(s): R31.0 - Gross hematuria (4) Pyelonephritis of right kidney: -Continue Rocephin, follow urine culture -Patient continues to have some leukocytosis, white blood cell count 14.6, absolute neutrophil count 11.5, patient is afebrile, clinically doing well, urine cultures unremarkable, blood cultures unremarkable -Patient's previous urine culture grew group B strep -Acute hepatitis panel negative -CT of the abdomen was negative for any cirrhosis -HIV panel pending Status: Acute Code(s): N12 - Tubulo-interstitial nephritis, not specified as acute or chronic (5) Central spinal stenosis: Continue physical therapy Status: Acute Code(s): M48.00 - Spinal stenosis, site unspecified Attestations Medical Necessity Statement*: Patient requires hospitalization for continued gross hematuria, pyelonephritis Coding Level of Care Code Acute Simonizer for [facility] Diagnoses Acute urinary retention R33.8 Cystitis N30.90 Gross hematuria R31.0 Pyelonephritis of right kidney N12 Central spinal stenosis M48.00
--- NOTE | 2019-03-28 13:41 | PC.RESP ---
Patient given information on Pulmonary Rehab.
[2019-03-28] MEDS: morphine 4 mg/mL SDV 1 mL 1 MG IV (14:44)
--- NOTE | 2019-03-28 15:36 | PM.PN ---
Subjective Subjective: Interval history: Urology follow-up note Yesterday his urine had cleared well and it was anticipated that he might be able to be discharged yesterday evening or this morning but his urine became more bloody today and required manual irrigation. Since that manual irrigation his CBI has been running at moderate to slowing paces with maintenance of clarity It is my interpretation that the recurrent hematuria is more related to incomplete healing of the bladder mucosa post retention and UTI. Overall the ability to maintain clarity is becoming easier despite today's hematuria. I recommend continuing the CBI and again trying to taper with the hopes of being able to send him home tomorrow with Lowery catheter in place and follow-up voiding trial in a couple weeks as originally planned. Medications: Reviewed: Yes Vitals/I&O/Wt Last Vital Signs Temp 98.2 F 03/28/19 11:19 Pulse 57 L 03/28/19 11:19 Resp 16 03/28/19 11:19 BP 149/79 03/28/19 11:19 Pulse Ox 92 03/28/19 11:19 03/28/19 03/28/19 03/28/19 06:59 14:59 22:59 Intake Total 1150 / 2046.667 480 / 480 Balance 1150 / 2046.667 480 / 480 Weight last 48 hrs Weight 139 lb 6.4 oz Weight 144 lb 6.4 oz Weight 139 lb Physical Exam Const: COMMON NORMALS: no apparent distress and oriented x3 GENERAL APPEARANCE: cooperative; not anxious Resp: EFFORT & INSPECTION: No tachypneic, No respiratory distress and No actively coughing Neuro: COMMON NORMALS: oriented x3 Psych: COMMON NORMALS: affect normal MOOD & AFFECT: No anxious THOUGHT CONTENT: Yes normal thought content ATTENTION/CONCENTRATION: Yes attention grossly intact Urinary Catheter Management^: Lowery: Cath Placed During This Visit: no Data Micro: Micro: Microbiology 03/26/19 08:17 Urine Culture - Fi nal Urine,Clean Catch 03/27/19 11:16 Blood Culture - Pr eliminary Blood NEGATIVE TO ROSY E 03/27/19 11:16 Blood Culture - Pr eliminary Blood NEGATIVE TO ROSY E A&P Assessment and plan (1) Gross hematuria: Continues to improve. 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 If his bleeding continues I may recommend a bedside cystoscopy or possibly cystoscopy under anesthesia with fulguration. Most of the time conservative management with manual and continuous bladder irrigation in the absence of a neoplastic process will adequately control bleeding Status: Resolved Code(s): R31.0 - Gross hematuria (2) Acute urinary retention: Maintain Lowery catheter for now. We will work toward removing the catheter on outpatient basis and reinitiating SCIC. Consider urodynamics for evaluation of bladder but expect that there is a neurogenic component. Status: Acute Code(s): R33.8 - Other retention of urine (3) Cystitis: Status: Acute Code(s): N30.90 - Cystitis, unspecified without hematuria Attestations Medical Necessity Statement*: see attending. Still requiring CBI Coding Level of Care Code Acute Fishing Game Warden for Chg Fwd Exam Problem Focused Diagnoses Gross hematuria R31.0 Acute urinary retention R33.8 Cystitis N30.90
[2019-03-28] MEDS: ipratropium-albuterol 3 mL Neb INHALATION (19:00)
[2019-03-28] MEDS: acetaminophen 325 mg Tablet 650 MG PO (23:18)
[2019-03-29 04:00] VITALS: BP 115/68; PULSE 58; RESP 18; TEMP 36.9; O2SAT 93
[2019-03-29 05:53] LABS: Basophils % 0.1 %; Eosinophils % 0.3 %; Hematocrit 30.4 % (42.0-52.0); Lymphocytes # 2.2 10^3/uL (0.8-4.8); Lymphocytes % 16.5 %; Mean Corpuscular HGB Conc 32.9 g/dL (30.0-36.0); Mean Corpuscular Hemoglobin 31.8 pg (28.0-34.0); Mean Corpuscular Volume 96.8 fL (80-94); Mean Platelet Volume 9.5 fL (7.4-10.4); Monocytes # 1.1 10^3/uL (0.2-0.9); Monocytes % 7.9 %; Neutrophils # 10.1 10^3/uL (1.8-7.7); Neutrophils % 74.8 %; Nucleated Red Blood Cells % 0 %; Platelet Count 328 10^3/cmm (130-400); Red Blood Count 3.14 10^6/uL (4.1-5.3); Red Cell Distribution Width 13.4 % (12.1-15.1); White Blood Count 13.5 10^3/uL (4.0-10.0)
[2019-03-29 06:24] LABS: Alanine Aminotransferase 71 U/L (0-41); Albumin Level 3.9 g/dL (3.5-5.2); Alkaline Phosphatase 99 IU/L (40-130); Anion Gap 13.7 (5-19); Aspartate Amino Transferase 38 U/L (0-40); Blood Urea Nitrogen 21 mg/dL (8-23); Calcium 9.2 mg/Dl (8.8-10.2); Carbon Dioxide 24 mmol/L (22-29); Chloride 107 mmol/L (98-107); Globulin 1.5 g/dL (1.3-4.6); Glucose 116 mg/dL (74-106); Potassium 3.7 mmol/L (3.5-5.1); Sodium 141 mmol/L (136-145); Total Bilirubin 0.2 mg/dL (0.15-1.2); Total Protein 5.4 g/dL (6.6-8.7)
[2019-03-29 07:35] VITALS: PULSE 61; RESP 18; O2SAT 96
[2019-03-29] MEDS: ipratropium-albuterol 3 mL Neb INHALATION (07:37)
[2019-03-29 07:41] VITALS: PULSE 63
[2019-03-29 08:00] VITALS: BP 150/73; PULSE 66; RESP 18; TEMP 36.8; O2SAT 92
--- NOTE | 2019-03-29 08:16 | P.PN_ITS ---
Subjective Subjective: Interval history: Doing well today. No requirement for manual irrigation and CBI has been weaned off with no recurrent hematuria. He feels that he can manage the catheter well enough at home while healing continues from this acute episode brought on by UTI/retention and probably some trauma related to SCIC. Encouraged him to drink a lot of fluid at home to help prevent clots. Recommendations: 1. Maintain Lowery catheter at discharge. Occlude the irrigation port with a catheter plug 2. Follow-up on 04/09/2018 for voiding trial and to trial different types of catheters for SCIC 3. May require urodynamics 4. Due to his less than ideal accomplishment of SCIC and recurrent UTIs I would keep him on antibiotics at discharge 5. I encouraged him to call sooner than his scheduled appointment if he is having trouble with catheter function, recurrent bleeding etc. Vitals/I&O/Wt Last Vital Signs Temp 98.2 F 03/29/19 08:00 Pulse 66 03/29/19 08:00 Resp 18 03/29/19 08:00 BP 150/73 03/29/19 08:00 Pulse Ox 92 03/29/19 08:00 03/28/19 03/29/19 03/29/19 22:59 06:59 14:59 Intake Total 490 / 970 150 / 1120 Balance 490 / 970 150 / 1120 Weight last 48 hrs Weight 139 lb 6.4 oz Weight 144 lb 6.4 oz Physical Exam Const: COMMON NORMALS: well nourished GENERAL APPEARANCE: cooperative and well developed ORIENTATION/CONSCIOUSNESS: Yes oriented to person, Yes oriented to place and Yes oriented to time Resp: COMMON NORMALS: normal respiratory effort : OTHER: Urine clear with no CBI. Neuro: SENSORIUM/ORIENTATION: Yes oriented to person, Yes oriented to place and Yes oriented to time Psych: COMMON NORMALS: mental status grossly normal, thought process normal, cooperative and affect normal THOUGHT PROCESS: normal thought process INSIGHT: insight good Urinary Catheter Management^: Lowery: Cath Placed During This Visit: no Data Micro: Micro: Microbiology 03/26/19 08:17 Urine Culture - Fi nal Urine,Clean Catch 03/27/19 11:16 Blood Culture - Pr eliminary Blood NEGATIVE TO ROSY E 03/27/19 11:16 Blood Culture - Pr eliminary Blood NEGATIVE TO ROSY E A&P Assessment and plan (1) Gross hematuria: Clot retention contributing to urinary retention. Likely multifactorial related UTI, traumatic catheterization, urinary retention. Status: Resolved Code(s): R31.0 - Gross hematuria (2) Acute urinary retention: Etiology unclear. Likely some neurogenic component. Placed on SCIC with some difficulty in performance. Developed complications of UTI gross hematuria pyelonephritis Status: Acute Code(s): R33.8 - Other retention of urine (3) Cystitis with hematuria: Status: Acute Code(s): N30.91 - Cystitis, unspecified with hematuria (4) Pyelonephritis of right kidney: Status: Acute Code(s): N12 - Tubulo-interstitial nephritis, not specified as acute or chronic (5) Central spinal stenosis: Status: Acute Code(s): M48.00 - Spinal stenosis, site unspecified Attestations Medical Necessity Statement*: It appears that the patient is ready for discharge today based on 24 hours without recurrent gross hematuria and ability to wean off CBI without recurrent clots or hematuria Coding Level of Care Code Acute Buttermaker Continuous Churn for Chg Fwd Exam Problem Focused Diagnoses Gross hematuria R31.0 Acute urinary retention R33.8 Cystitis with hematuria N30.91 Pyelonephritis of right kidney N12 Central spinal stenosis M48.00 Time Spent (min) 35 Comment Unit time
[2019-03-29] MEDS: sodium chloride 0.9% 1,000 ML 100 ML IV (09:31)
[2019-03-29] MEDS: predniSONE 20 mg Tablet 40 MG PO (09:32)
[2019-03-29] MEDS: cefTRIAXone 1,000 MG in sodium chloride 0.9% (plus) 50 ML 100 MG IV (09:32)
[2019-03-29] MEDS: fluoxetine 20 mg Capsule 60 MG PO (09:33)
[2019-03-29] MEDS: pantoprazole DR 40 mg Tablet PO (09:33)
[2019-03-29] MEDS: multivitamin therapeutic Tablet 1 TAB PO (09:33)
[2019-03-29] MEDS: folic acid 1 mg Tablet PO (09:33)
[2019-03-29] MEDS: tamsulosin 0.4 mg Capsule 0.8 MG PO (09:37)
--- NOTE | 2019-03-29 11:29 | PC.SOCIAL ---
IMM Update Pg 2 of IMM Given and explained to patient who voiced understanding. Signed, dated and timed and placed in chart. Copy provided to patient.
[2019-03-29 11:31] VITALS: BP 146/76; PULSE 60; RESP 18; TEMP 36.7; O2SAT 96
--- NOTE | 2019-03-29 12:59 | PM.DCS ---
Discharge Providers Date of Admission: 03/26/19 13:35 Date of Discharge: 03/29/19 Attending Provider at Admission: Turner Singh MD Attending Provider at Discharge: Turner Singh MD Primary Care Provider: Mikaela Turk Diagnoses at Discharge Discharge Diagnosis (1) Acute urinary retention: Status: Acute Problem details: -Lowery catheter in place, follow with Dr. Donohue as outpatient (2) Cystitis with hematuria: Status: Acute Problem details: -Status post CBI, follow with Dr. Donohue as outpatient (3) Pyelonephritis of right kidney: Status: Acute Problem details: -Discharged on Bactrim, urine cultures unremarkable (4) Central spinal stenosis: Status: Acute Problem details: -Follow-up with physician as outpatient Reason for Visit Reason for Visit: Brief History: Painful hematuria, shortness of breath, presyncope For patient's painful hematuria, was found to have gross hematuria with blood clots, Dr. Donohue was consulted, patient had a Lowery catheter placement, received continuous bladder irrigation, clinically improved. Likely patients hematuria was traumatic related to self-catheterization, and pyelonephritis. Patient is to follow with Dr. Donohue as outpatient. For his right pyelonephritis, patient received IV antibiotics, his blood for culture so far unremarkable, urine culture so far unremarkable, interestingly patient's previous urine cultures on his last ER visit showed group B strep, no known liver disease on imaging, his hepatitis panel is unremarkable, his HIV is pending. Patient did clinically well, remained asymptomatic, remained afebrile, was discharged on Bactrim. For his presyncope, no repeat episodes, receives home health care at home, patient is to follow-up with home health care and his physician. Physical Exam Const: COMMON NORMALS: no apparent distress, oriented x3, no limitations and alert EXAM LIMITATIONS: no altered mental status GENERAL APPEARANCE: cooperative and well kempt ORIENTATION/CONSCIOUSNESS: Yes awake, Yes oriented to person and Yes oriented to place Neck/C-Spine: COMMON NORMALS: no JVD Chest: COMMONS NORMALS: inspection of chest normal Resp: COMMON NORMALS: normal respiratory effort, no retractions, no use of accessory muscles and clear to auscultation bilaterally EFFORT & INSPECTION: Yes able to speak in complete sentences and No decreased respiratory effort AUSCULTATION: clear to auscultation bilaterally Cardio: COMMON NORMALS: no JVD, regular rate, regular rhythm, S1 normal heart sound, S2 normal heart sound, no gallops, no clicks, no murmurs and no rub RATE: regular rate RHYTHM: regular rhythm HEART SOUNDS: S1 normal and S2 normal GI: COMMON NORMALS: normal to inspection, nondistended, normoactive bowel sounds, soft to palpation, non-tender, no hepatosplenomegaly, no masses and no bruits AUSCULTATION: Yes normoactive bowel sounds PALPATION: Yes soft, No tender, No guarding and Yes no hepatosplenomegaly PERCUSSION: normal to percussion Extremity: COMMON NORMALS: normal to inspection, normal capillary refill and no pedal edema Neuro: COMMON NORMALS: oriented x3 SENSORIUM/ORIENTATION: Yes alert, Yes oriented to person and Yes oriented to place Psych: APPEARANCE: Yes well kempt Urinary Catheter Management^: Lowery: Cath Placed During This Visit: no Discharge Data Data Completed and Pending: Completed Studies During Hospitalization Category Date Time Status CT kidney stone [id number] Urgent Cat Scan 03/26/19 12:57 Completed XR chest 1V [place] ble [id number] Urgent Exams 03/26/19 04:44 Completed Pending at discharge Category Date Time Status Anti-HIV 1 and 2 AB & P24 AG Stat Lab 03/27/19 11:16 Received Blood Culture Sta t Lab 03/27/19 11:16 Results Labs from last 24 hours 03/29/19 03/29/19 05:45 05:45 WBC 13.5 H RBC 3.14 L Hgb 10.0 L Hct 30.4 L MCV 96.8 H MCH 31.8 MCHC 32.9 RDW 13.4 Plt Count 328 MPV 9.5 Neut % (Auto) 74.8 Lymph % (Auto) 16.5 [place] % (Auto) 7.9 Eos % (Auto) 0.3 Baso % (Auto) 0.1 Neut # (Auto) 10.1 H Lymph # (Auto) 2.2 [place] # (Auto) 1.1 H Eos # (Auto) 0.0 Baso # (Auto) 0.0 Nucleated RBC % (a uto) 0 Nucleated RBCs # 0.0 Sodium 141 Potassium 3.7 Chloride 107 Carbon Dioxide 24 Anion Gap 13.7 BUN 21 Creatinine 0.9 Glucose 116 H Calcium 9.2 Total Bilirubin 0.2 AST 38 ALT 71 H Alkaline Phosphata se 99 Total Protein 5.4 L Albumin 3.9 Globulin 1.5 Vitals: Last Vital Signs Temp 98.1 F 03/29/19 11:31 Pulse 60 03/29/19 11:31 Resp 18 03/29/19 11:31 BP 146/76 03/29/19 11:31 Pulse Ox 96 03/29/19 11:31 Discharge Attestations Time Spent in Discharge Care*: greater than 30 min Quality Metrics Clinical Quality Measures During this hospital stay, did patient experience: None Coding Level of Care Code Acute Loan Servicing Representative for Chg Fwd Exam Problem Focused Diagnoses Acute urinary retention R33.8 Cystitis with hematuria N30.91 Pyelonephritis of right kidney N12 Central spinal stenosis M48.00
[2019-03-29 13:35] VITALS: BP 125/72; PULSE 63; RESP 18; TEMP 36.7; O2SAT 96
--- NOTE | 2019-03-29 14:20 | PC.NURSE ---
Pt fitted with catheter leg bag and given night catheter bag for discharge to home. Pt iv discontinued with catheter intact. Gauze and coban applied . pt tolerated well.
== END 2019-03-29 14:26 | disposition home or self-care (01) | DRG 690 ==
LOC: ER 14:22 → MEDSURG 15:01
PROVIDERS: Emergency Medicine; Admitting Provider Family Medicine; Emergency Provider Family Medicine; Family Provider Nurse Practitioner Family; PCP Nurse Practitioner Family; Visit Provider Family Medicine
DX: N30.01 Acute cystitis with hematuria (principal); N12 Tubulo-interstitial nephritis, not specified as acute or chronic; J44.1 Chronic obstructive pulmonary disease with (acute) exacerbation; N17.9 Acute kidney failure, unspecified; Z91.81 History of falling; I10 Essential (primary) hypertension; N40.1 Benign prostatic hyperplasia with lower urinary tract symptoms; R33.8 Other retention of urine; R39.14 Feeling of incomplete bladder emptying; Z87.442 Personal history of urinary calculi; Z87.440 Personal history of urinary (tract) infections; F17.210 Nicotine dependence, cigarettes, uncomplicated; Z79.51 Long term (current) use of inhaled steroids; M48.02 Spinal stenosis, cervical region; M48.061 Spinal stenosis, lumbar region without neurogenic claudication; G89.29 Other chronic pain; Z98.1 Arthrodesis status; I71.4 Abdominal aortic aneurysm, without rupture; D64.9 Anemia, unspecified; R55 Syncope and collapse
CPT/HCPCS: 36415; 51702; 71045; 74176; 80048; 80053; 81003; 83690; 83880; 85025; 85610; 86705; 86706; 86709; 86803; 87040; 87086; 87340; 90732; 94640; 94762; 96360; 96361; 96365; 96374; 97110; 97116; 97161; 97165; 97530; 97535; 99283; J0696; J2270; J2930; J7030; J7512; J7611

== ENCOUNTER → 2019-05-12 11:25 | Outpatient (BNVA) | payer OTHER, SELFPAY | PROVIDERS: Family Provider Nurse Practitioner Family; PCP Nurse Practitioner Family; Referring Provider Emergency Medicine Emergency Medical Services; Visit Provider Psychiatry & Neurology Neurology | DX: M54.16 Radiculopathy, lumbar region (principal); F17.210 Nicotine dependence, cigarettes, uncomplicated | CPT/HCPCS: 95886; 95909 ==

== ENCOUNTER 2019-08-12 15:41 | Inpatient (IN) | payer OTHER, MEDICARE, SELFPAY ==
[2019-08-12 15:46] VITALS: BP 117/69; PULSE 80; RESP 16; TEMP 36.4; O2SAT 100
--- NOTE | 2019-08-12 15:58 | W.ED.ABDPA2 ---
HPI - Abdominal Pain General: Chief Complaint: Fever Stated Complaint: weakness Time Seen by Provider: 08/12/19 15:46 History of Present Illness: HPI narrative: 74-year-old male presents emergency room after the home health nurse arrived in his home he been unable to get out of bed he was found with feces and urine around him. This is very unusual for him usually keeps his house immaculately clean. He denies any difficulty breathing denies any chest pain or shortness of breath he has had a little bit of a cough his biggest complaint is had nausea vomiting and diarrhea for last 3 or 4 days EMS said the diarrhea stool in the bed appeared to be melanotic nature. Nursing staff report he had a low-grade fever. He denies dysuria urgency or frequency does have some abdominal cramping and bloating. MD elicited complaint: abdominal pain Pertinent past history: none Onset (ago): day(s) (3-4) Pain Consistency: intermittent Location: Suprapubic and Pelvis Severity: moderate Quality: cramping Associated Symptoms: Denies bloating, chills, coffee ground emesis, constipation, diarrhea, dysuria, fever(s), hematochezia, hematemesis, melena, nausea and vomiting Review of Systems Const: Denies: fever(s), chills, body aches, change in appetite, fatigue or malaise ENMT: Denies: throat pain, ear or mastoid pain, nasal discharge or nasal congestion Card: Denies: chest pain, edema, dyspnea on exertion or orthopnea Resp: Denies: dyspnea, productive cough or non-productive cough GI: Denies: abdominal pain, nausea, vomiting, hematemesis, coffee ground emesis, diarrhea, constipation, bloating, hematochezia or melena : Denies: flank pain, dysuria, urinary frequency or urinary urgency Skin/Breast: Denies: rash or pruritus PFS ED PFSH: Medical History (Updated 08/13/19 @ 15:42 by Dileep Verduzco DO) Acute urinary retention Ascending aortic aneurysm Bradycardia Chronic back pain Chronic neck pain Compression fracture of L1 lumbar vertebra COPD (chronic obstructive pulmonary disease) -not oxygen dependent at baseline CVA (cerebral vascular accident) Cystitis with hematuria -Status post CBI, follow with Dr. Donohue as outpatient GERD (gastroesophageal reflux disease) Gross hematuria HTN (hypertension) Macrocytic anemia Multilevel degenerative disc disease Spinal stenosis, site unspecified Surgical History H/O laminectomy L5-S1 HEMILANIECTOMIES H/O shoulder surgery H/O spinal fusion C5-C6 History of cystoscopy in 01/2019 -chronic inflammatory changes, bladder diverticuli Hx laparoscopic cholecystectomy S/P ureteral stent placement Family History Father CAD (coronary artery disease) Social History (Updated 08/12/19 @ 20:08 by Krista Henderson MD) Smoking and tobacco status: current every day smoker cigarettes Packs smoked per day: 1 Alcohol intake: never Substance/Drug Use: never Lives independently: Yes Marital status: Current occupational status: disabled Current gender identity: Male Physical Exam Const: COMMON NORMALS: no acute distress GENERAL APPEARANCE: cooperative and comfortable ORIENTATION/CONSCIOUSNESS: Yes awake, Yes oriented to person, Yes oriented to place and Yes oriented to time HENMT: COMMON NORMALS: normocephalic, atraumatic, hearing grossly normal bilaterally, external ears normal, EAC's normal, TM's normal bilaterally, Normal nasal mucous membranes and turbinates present, moist oral mucous membranes and oropharynx normal HEAD & SCALP: normocephalic and atraumatic NOSE: Normal nasal mucous membranes and turbinates present EXTERNAL EAR: Yes external ears normal EXTERNAL AUDITORY CANAL: EAC's normal TYMPANIC MEMBRANE: TM's normal bilaterally Eye: COMMON NORMALS: Equal, round and reactive pupils present, EOMs intact bilaterally, conjunctivae normal and no scleral icterus CONJUNCTIVA: Yes conjunctivae normal PUPIL: Yes Equal, round and reactive pupils present Neck/C-Spine: COMMON NORMALS: full ROM, no lymphadenopathy, supple and no JVD Lymph: LYMPHATIC: no lymphadenopathy noted and no lymphedema noted Resp: COMMON NORMALS: normal respiratory effort, No retractions, No use of accessory muscles and clear to auscultation bilaterally AUSCULTATION: clear to auscultation bilaterally Cardio: COMMON NORMALS: no JVD, regular rate, regular rhythm and No murmurs present (Cardio) RATE: regular rate RHYTHM: regular rhythm GI: COMMON NORMALS: Soft to palpation and No hepatosplenomegaly present AUSCULTATION: Yes normoactive bowel sounds PALPATION: Yes Soft to palpation, Yes Tenderness to palpation present (GI) (Diffuse), No Guarding due to palpation present (GI) and Yes No hepatosplenomegaly present Extremity: COMMON NORMALS: normal to inspection, capillary refill normal, no clubbing, cyanosis or edema, no calf tenderness and no pedal edema Neuro: SENSORIUM/ORIENTATION: Yes oriented to person, Yes oriented to place and Yes oriented to time Skin: COMMON NORMALS: no rashes or lesions noted GENERAL SKIN EXAM: no rashes or lesions noted Course Vital Signs: Vital signs: Vital Signs Temperature 98.4 F 08/13/19 11:22 Pulse Rate 120 H 08/13/19 11:22 Respiratory Rate 18 08/13/19 11:22 Blood Pressure 94/61 08/13/19 11:22 Pulse Oximetry 92 08/13/19 11:22 MDM - Abdominal Pain MDM Narrative: Medical decision making narrative: Patient has UTI and acute kidney injury with bladder outlet obstruction Lowery placed will consult Dr. Donohue started on IV antibiotics Dr. Aguiar we will follow. Lab Data: Labs: Lab Results 08/12/19 08/12/19 08/12/19 Range/Units 16:15 16:15 16:15 WBC 13.0 H (4.0-10.0) 10^3/ uL RBC 3.17 L (4.1-5.3) 10^6/u L Hgb 10.1 L (11.7-16.6) g/dL Hct 31.2 L (42.0-52.0) % MCV 98.4 H (80-94) fL MCH 31.9 (28.0-34.0) pg MCHC 32.4 (30.0-36.0) g/dL RDW 14.6 (12.1-15.1) % Plt Count 372 (130-400) 10^3/c mm MPV 10.1 (7.4-10.4) fL Neut % (Auto) 92.5 % Lymph % (Auto) 3.0 % [place] % (Auto) 3.9 % Eos % (Auto) 0.2 % Baso % (Auto) 0.2 % Neut # (Auto) 12.0 H (1.8-7.7) 10^3/u L Lymph # (Auto) 0.4 L (0.8-4.8) 10^3/u L [place] # (Auto) 0.5 (0.2-0.9) 10^3/u L Eos # (Auto) 0.0 (0.0-0.8) 10^3/u L Baso # (Auto) 0.0 (0.0-0.1) 10^3/u L Nucleated RBC % (a uto) 0 % Nucleated RBCs # 0.0 /100WBC Specimen Type Sample Site ABG pH (7.35-7.45) ABG pCO2 (35-45) mmHg ABG HCO3 (22-26) mmol/L ABG O2 Saturation ABG Base Excess (-2.0-2.0) mmol/ L Sd Test Hematocrit (42-52) % Hgb O2 Saturation (95-100) % Carboxyhemoglobin (0.4-20.1) %THgb Methemoglobin (0.4-1.5) % Total Hemoglobin (14-18) g/dL Ionized Calcium (1.1-1.4) mmol/L O2 Delivery Device O2 Liters/Min % Backup Administrator ID Sodium 139 (136-145) mmol/L Potassium 4.7 (3.5-5.1) mmol/L Chloride 102 (98-107) mmol/L Carbon Dioxide 25 (22-29) mmol/L Anion Gap 16.7 (5-19) BUN 22 (8-23) mg/dL Creatinine 1.5 H (0.7-1.2) mg/dL Glucose 113 (65-115) mg/dL Calculated Osmolal ity 285 (285-295) mOsm/k g Lactate 0.7 (0.5-2.2) mmol/L Calcium 8.7 (8.5-10.5) mg/dL Total Bilirubin 0.2 (0.15-1.2) mg/dL AST 13 (0-40) U/L ALT 13 (0-41) U/L Alkaline Phosphata se 94 (40-130) IU/L Total Protein 6.5 L (6.6-8.7) g/dL Albumin 3.5 (3.5-5.2) g/dL Globulin 3.0 (1.3-4.6) g/dL Lipase 15 (13-60) U/L Urine Color (Yellow) Urine Appearance (CLEAR) Urine pH (5-7) Ur Specific Gravit y (1.005-1.030) Urine Protein (Negative) Urine Glucose (UA) (Normal) Urine Ketones (Negative) Urine Blood (Negative) Urine Nitrate (Negative) Urine Bilirubin (NEGATIVE) Urine Urobilinogen (Negative) mg/dL Ur Leukocyte Grace ase (Negative) Urine RBC (0-2) /hpf Urine WBC (0-5) /hpf Ur Squamous Epith Cells (0-5) Urine Bacteria (NONE) Influenza Type A A g (Negative) Influenza Type B A g (Negative) 08/12/19 08/12/19 08/12/19 Range/Units 16:29 16:31 16:31 WBC (4.0-10.0) 10^3/ uL RBC (4.1-5.3) 10^6/u L Hgb (11.7-16.6) g/dL Hct (42.0-52.0) % MCV (80-94) fL MCH (28.0-34.0) pg MCHC (30.0-36.0) g/dL RDW (12.1-15.1) % Plt Count (130-400) 10^3/c mm MPV (7.4-10.4) fL Neut % (Auto) % Lymph % (Auto) % [place] % (Auto) % Eos % (Auto) % Baso % (Auto) % Neut # (Auto) (1.8-7.7) 10^3/u L Lymph # (Auto) (0.8-4.8) 10^3/u L [place] # (Auto) (0.2-0.9) 10^3/u L Eos # (Auto) (0.0-0.8) 10^3/u L Baso # (Auto) (0.0-0.1) 10^3/u L Nucleated RBC % (a uto) % Nucleated RBCs # /100WBC Specimen Type Arterial Sample Site Brachial, left ABG pH 7.37 (7.35-7.45) ABG pCO2 42.4 (35-45) mmHg ABG HCO3 24.5 (22-26) mmol/L ABG O2 Saturation 99.0 ABG Base Excess -0.9 (-2.0-2.0) mmol/ L Sd Test Pos Hematocrit 30.7 L (42-52) % Hgb O2 Saturation 96.3 (95-100) % Carboxyhemoglobin 1.4 (0.4-20.1) %THgb Methemoglobin 1.4 (0.4-1.5) % Total Hemoglobin 10.0 L (14-18) g/dL Ionized Calcium 1.2 (1.1-1.4) mmol/L O2 Delivery Device Nc O2 Liters/Min 3.5 % Backup Administrator ID [email or web address] Sodium 141.0 (136-145) mmol/L Potassium 4.5 (3.5-5.1) mmol/L Chloride (98-107) mmol/L Carbon Dioxide (22-29) mmol/L Anion Gap (5-19) BUN (8-23) mg/dL Creatinine (0.7-1.2) mg/dL Glucose 114.0 (65-115) mg/dL Calculated Osmolal ity (285-295) mOsm/k g Lactate (0.5-2.2) mmol/L Calcium (8.5-10.5) mg/dL Total Bilirubin (0.15-1.2) mg/dL AST (0-40) U/L ALT (0-41) U/L Alkaline Phosphata se (40-130) IU/L Total Protein (6.6-8.7) g/dL Albumin (3.5-5.2) g/dL Globulin (1.3-4.6) g/dL Lipase (13-60) U/L Urine Color Yellow (Yellow) Urine Appearance Cloudy (CLEAR) Urine pH 6 (5-7) Ur Specific Gravit y 1.010 (1.005-1.030) Urine Protein Trace (Negative) Urine Glucose (UA) Norm (Normal) Urine Ketones Negative (Negative) Urine Blood 2+ H (Negative) Urine Nitrate Positive H (Negative) Urine Bilirubin Neg (NEGATIVE) Urine Urobilinogen Norm (Negative) mg/dL Ur Leukocyte Grace ase 2+ H (Negative) Urine RBC 5-10 H (0-2) /hpf Urine WBC 25-40 H (0-5) /hpf Ur Squamous Epith Cells 0-4 H (0-5) Urine Bacteria 4+ H (NONE) Influenza Type A A g Negative (Negative) Influenza Type B A g Negative (Negative) Discharge Plan Discharge Patient Disposition: Admitted As Inpatient Admit Provider: Krista Henderson Clinical Impression: Acute urinary retention, COPD (chronic obstructive pulmonary disease), HTN (hypertension), Complicated UTI (urinary tract infection), Hydronephrosis due to obstruction of bladder, TYSON (acute kidney injury) Condition: Stable Referrals: Janet Martinez FNP [Primary Care Provider] - Interventions: ED Discharge Assessment Last Done: 08/12/19 20:16 ED Charges Last Done: 08/12/19 20:18 Discharge Date/Time: 08/12/19 20:35 Coding Level of Care Code ED Post Office Markup Clerk for Chg Fwd Exam Comprehensive
--- NOTE | 2019-08-12 16:01 | CTR_ITS ---
PROCEDURE INFORMATION: Exam: CT Abdomen And Pelvis With Contrast Exam date and time: 08/12/2019 4:43 PM Age: 74 years old Clinical indication: Abdominal pain; Prior surgery; Surgery type: Gb; Additional info: Abd pain TECHNIQUE: Imaging protocol: Computed tomography of the abdomen and pelvis with intravenous contrast. Radiation optimization: All CT scans at this facility use at least one of these dose optimization techniques: automated exposure control; mA and/or kV adjustment per patient size (includes targeted exams where dose is matched to clinical indication); or iterative reconstruction. Contrast material: VISI 320; Contrast volume: 95 ml; Contrast route: IV; COMPARISON: CT kidney stone [id number] 03/26/2019 1:04 PM RADIATION DOSE METRICS: Total DLP: 194.5 mGy-cm FINDINGS: Mediastinum: Small hiatal hernia. Liver: Normal. No mass. Gallbladder and bile ducts: Cholecystectomy. The bile ducts are normal. Pancreas: Normal. No ductal dilation. Spleen: Normal. No splenomegaly. Adrenals: Normal. No mass. Kidneys and ureters: Multiple fluid density cysts in both kidneys, the largest 6.1 cm on the left. Columning of the bilateral ureters with mild right and moderate left hydronephrosis. No renal calculus identified. Stomach and bowel: Moderate gaseous distension of the transverse colon. The distal colon and rectum contain gas but are relatively decompressed. The small bowel is unremarkable. Appendix: The appendix is not visualized. Intraperitoneal space: Unremarkable. No free air. No significant fluid collection. Vasculature: Unremarkable. No abdominal aortic aneurysm. Lymph nodes: Unremarkable. No enlarged lymph nodes. Bladder: Distended urinary bladder with mild wall thickening measuring up to 8 mm. Reproductive: The prostate is normal in size. Bones/joints: Mild scoliosis with degenerative changes. Mild L1 compression fracture. Soft tissues: Unremarkable. CT/CT abdomen pelvis w con* [id number] IMPRESSION: 1. Distention of the urinary bladder with mild wall thickening. This could represent cystitis with neurogenic bladder versus bladder outlet obstruction. 2. Mild right and moderate left hydronephrosis has developed with columning of the ureters. This is most likely related to the urinary bladder distension. 3. Gaseous distension of the colon is most likely ileus. 4. Renal cysts. These require no follow-up. Radiation Dose CTDIVOL = (mGy): DLP = 194.5 (mGy-cm)
--- NOTE | 2019-08-12 16:01 | XR_ITS ---
WS: [id number] CHEST XRAY TECHNIQUE: Portable chest. CLINICAL INFORMATION: dyspnea/cough COMPARISON: March 26, 2019 FINDINGS: Heart: Normal cardiac silhouette. Lungs: Moderate chronic emphysematous changes. No acute pulmonary infiltrates. No focal pneumonia. Bones: Prior repair left AC joint. XR/XR chest 1V portable [id number] IMPRESSION: No acute chest findings
--- NOTE | 2019-08-12 16:02 | ECG_ITS ---
Measurements Intervals Geraldine Rate: 83 P: 75 MT: 182 QRS: -22 QRSD: 95 T: 85 QT: 374 QTc: 440 SINUS RHYTHM WITH MARKED SINUS ARRHYTHMIA BORDERLINE LEFT AXIS DEVIATION [QRS AXIS < -20] Compared to ECG 03/14/2019 19:29:47 Left anterior fascicular block no longer present Electronically Signed On 08-12-2019 20:51:13 CDT by Kody Galindo M.D. [id number]
[2019-08-12 16:21] LABS: Basophils % 0.2 %; Eosinophils % 0.2 %; Hematocrit 31.2 % (42.0-52.0); Hemoglobin 10.1 g/dL (11.7-16.6); Lymphocytes # 0.4 10^3/uL (0.8-4.8); Mean Corpuscular HGB Conc 32.4 g/dL (30.0-36.0); Mean Corpuscular Hemoglobin 31.9 pg (28.0-34.0); Mean Corpuscular Volume 98.4 fL (80-94); Mean Platelet Volume 10.1 fL (7.4-10.4); Monocytes # 0.5 10^3/uL (0.2-0.9); Monocytes % 3.9 %; Neutrophils % 92.5 %; Nucleated Red Blood Cells % 0 %; Platelet Count 372 10^3/cmm (130-400); Red Blood Count 3.17 10^6/uL (4.1-5.3); Red Cell Distribution Width 14.6 % (12.1-15.1)
[2019-08-12 16:37] LABS: Alanine Aminotransferase 13 U/L (0-41); Albumin Level 3.5 g/dL (3.5-5.2); Alkaline Phosphatase 94 IU/L (40-130); Anion Gap 16.7 (5-19); Aspartate Amino Transferase 13 U/L (0-40); Blood Urea Nitrogen 22 mg/dL (8-23); Calcium 8.7 mg/dL (8.5-10.5); Carbon Dioxide 25 mmol/L (22-29); Chloride 102 mmol/L (98-107); Glucose 113 mg/dL (65-115); Lipase 15 U/L (13-60); Osmolality Calculated 285 mOsm/kg (285-295); Potassium 4.7 mmol/L (3.5-5.1); Sodium 139 mmol/L (136-145); Total Bilirubin 0.2 mg/dL (0.15-1.2); Total Protein 6.5 g/dL (6.6-8.7)
--- NOTE | 2019-08-12 16:37 | PC.NURSE ---
Patient arrived in heavily soiled clothing. Feet covered in dry feces. Clothing removed. Feet cleaned with soap and water.
[2019-08-12 16:38] LABS: Lactate (Lactic Acid level) 0.7 mmol/L (0.5-2.2)
[2019-08-12 16:40] LABS: ABG PCO2 42.4 mmHg (35-45); ABG PH Result 7.37 (7.35-7.45); Arterial Blood Gas Hematocrit 30.7 % (42-52); Base Excess ABG -0.9 mmol/L (-2.0-2.0); Blood Gas Allen Test Pos; Blood Gas LPM 3.5 %; Blood Gas Sample Site Brachial, left; Blood Gas Sample Type Arterial; Carboxyhemoglobin 1.4 %THgb (0.4-20.1); HCO3 ABG 24.5 mmol/L (22-26); HGB O2 Sat 96.3 % (95-100); Ionized Calcium Level - ABG 1.2 mmol/L (1.1-1.4); Methemoglobin 1.4 % (0.4-1.5); Oxygen Device NC; Potassium Level - ABG 4.5 mmol/L (3.5-5.0)
[2019-08-12 16:59] LABS: Add Urine Microscopic? YES; Bilirubin Urine Neg (NEGATIVE); Blood Urine 2+ (Negative); Glucose Urine UA Norm (Normal); Ketones Urine Negative (Negative); Leukocyte Esterase Urine 2+ (Negative); Nitrate Urine Positive (Negative); Protein Urine Trace (Negative); Urine Appearance Cloudy (CLEAR); Urine Color Yellow (Yellow); Urobilinogen Urine Norm (Negative); pH Urine 6 (5-7)
[2019-08-12 17:04] LABS: Add Urine Culture? Yes; Bacteria Urine 4+; Squamous Epithelial Cell Urine 0-4 (0-5); WBC Urine 25-40 /hpf (0-5)
[2019-08-12 17:10] LABS: Influenza A by IFA Negative (Negative); Influenza B by IFA Negative (Negative)
[2019-08-12] MEDS: iodixanol 320 mg/mL 100mL Btl IV (17:27)
[2019-08-12] MEDS: cefTRIAXone 1,000 MG in sodium chloride 0.9% (plus) 50 ML 100 MG IV (18:30)
[2019-08-12] MEDS: sodium chloride 0.9% 500 ML 999 ML IV (18:30)
[2019-08-12 19:32] VITALS: BP 136/85; PULSE 79; RESP 18; O2SAT 95
--- NOTE | 2019-08-12 19:47 | P.MISC_ITS ---
Miscellaneous Note Purpose of Documentation: Mary consultation with urology. Patient admitted with UTI, recurrent urinary retention, and new hydronephrosis not identified during previous episodes of urinary retention. He was last seen in April at which time he underwent a voiding trial again and did well with [facility]. He was scheduled to be seen in a couple months I think but I expect that did not happen due to the coronavirus concerns. Presented with weakness, generalized debilitation, fecal and urine soiling, and evidence of UTI. Creatinine was elevated at 1.5 beyond his previous more normal levels. CT scan showed no evidence of ureteral obstruction but did show bladder outlet obstruction likely the source of his bilateral hydronephrosis again not seen previously. I reviewed the films labs prior records and discussed the case with Dr. Henderson. Recommendations included maintenance of Lowery catheter, treatment of the infection, and further evaluation when I return from vacation for more long-term tactics regarding bladder management. We had previously discussed urodynamics as a possibility to assess for detrusor function and to assess whether or not surgical intervention with transurethral resection/vaporization might be indicated. I will see the patient when I return on , 08/14/2019.
--- NOTE | 2019-08-12 20:02 | PM.HP ---
Providers/Chief Complaint Admitting Physician: Krista Henderson MD Primary Care Provider: ZEINAB Almaguer Chief Complaint: URINARY RETENTIONL CYSTITIS; TYSON History of Present Illness Michael Herrera JR is a 74 year old male with PMHx of HTN, COPD, Chronic smoker, Chronic back pain with radiculopathy, GERD, presents via EMS after home health nurse found him soiled (urine, stool) earlier this afternoon. It seems that patient has generally been feeling unwell with nausea/vomiting, decreased appetite and oral intake, fever/chills over the past few days; and increasing urinary incontinence and difficulty emptying his bladder over the past 2 weeks. He was quite disheveled and unkempt on his arrival to the ER but has since been cleaned up during my evaluation at bedside. He is able to provide appropriate history with collateral information obtained from review of medical records. He lives alone with supplemental support provided through home health services. He typically ambulates with a walker and cane but over time has had recurrent falls and progressive difficulty with ambulation with [facility]. He is generally quite weak and states that when attempting to ambulate he typically feels his knees give out on him. He was admitted to our facility in March 2019 during which time he was treated for acute pyelonephritis and noted to have urinary retention and gross hematuria at that time and was further evaluated by Dr. Donohue. He responded well to antibiotic therapy and was doing well with [facility]. He reports ongoing difficulty with emptying his bladder appropriately with frequent bouts of urinary incontinence. He denies dysuria, hematuria, loose or watery stool. Has not been on any antibiotic therapy recently. He has been trying to isolate himself at home in light of current COVID-19 pandemic and his underlying history of COPD. He is not oxygen dependent at baseline and states that he has chronic shortness of breath and productive cough none of which has changed recently and he has not been in contact with any known COVID-19 patients. Upon evaluation in the ER he was noted to have leukocytosis with neutrophilic predominance with a white count of 13, anemia with a hemoglobin of 10.4, BUN of 22, creatinine of 1.5, lactate of 0.7, urinalysis that is strongly indicative of infection, CT of the abdomen and pelvis showing significant bladder distention with noted mild right and moderate left hydronephrosis, ileus and renal cysts. Patient is currently in the process of having a Lowery catheter placed for decompression and is receiving his first dose of ceftriaxone. I discussed this findings with Dr. Donohue who agrees with plan as noted and will formally see the patient on upon his return. In light of patient's acute urinary retention, associated hydronephrosis, complicated UTI he has been admitted for further IV antibiotic treatment and IV fluid hydration. Review of Systems Const: Reports: fever(s), chills, change in appetite (decreased appetite), fatigue and malaise Eyes: Denies: change in vision ENMT: Reports: dry mouth Card: Denies: chest pain, swelling of feet/ankles or lightheadedness Resp: Reports: dyspnea (chronic) and productive cough (chronic, no change in sputum color or production) GI: Reports: abdominal pain (lower), nausea, vomiting (NBNB) and bloating; Denies: hematemesis or hematochezia : Reports: difficulty urinating, urinary dribbling, oliguria and urinary incontinence; Denies: dysuria or hematuria Musc: Denies: back pain Skin/Breast: Denies: rash Neuro: Reports: weakness in extremities and frequent falls; Denies: numbness in extremities Psych: Denies: anxiety Medications/Allergies Home Medications Medication Instructions Recorded Confirmed Last Taken Type Eucerin 1 applic TOPICAL DAILY 03/26/19 08/12/19 08/11/19 History carbamide peroxide 3 drp OTIC (EAR) BID 03/26/19 08/12/19 08/11/19 History docusate sodium [Colace] 100 mg PO BID 03/26/19 08/12/19 08/11/19 History fluoxetine [Prozac] 60 mg PO DAILY 03/26/19 08/12/19 08/11/19 History furosemide [Lasix] 20 mg PO DAILY PRN 03/26/19 08/12/19 08/11/19 History ipratropium-albuterol 1 puff INHALATION QID MDD 6 PUFFS 03/26/19 08/12/19 08/11/19 History ipratropium-albuterol See Rx Instructions .ROUTE .COMPLEX 03/26/19 08/12/19 08/11/19 History omeprazole 20 mg PO BID 03/26/19 08/12/19 08/11/19 History tamsulosin [Flomax] 0.8 mg PO QPM 03/26/19 08/12/19 08/11/19 History finasteride 5 mg PO DAILY 08/12/19 08/12/19 08/11/19 History multivitamin [Multiple Vitamins] See Rx Instructions .ROUTE .COMPLEX 08/12/19 08/12/19 08/09/19 History Allergies Allergy/AdvReac Type Severity Reaction Status Date / Time nicotine Allergy Mild SKIN Verified 05/12/19 12:04 REACTION propoxyphene [From Darvon] Allergy Unknown Verified 05/12/19 12:04 PFSH Acute PFSH: Medical History Acute urinary retention Ascending aortic aneurysm Bradycardia Chronic back pain Chronic neck pain Compression fracture of L1 lumbar vertebra COPD (chronic obstructive pulmonary disease) -not oxygen dependent at baseline CVA (cerebral vascular accident) Cystitis with hematuria -Status post CBI, follow with Dr. Donohue as outpatient GERD (gastroesophageal reflux disease) Gross hematuria HTN (hypertension) Macrocytic anemia Multilevel degenerative disc disease Spinal stenosis, site unspecified Surgical History H/O laminectomy L5-S1 HEMILANIECTOMIES H/O shoulder surgery H/O spinal fusion C5-C6 History of cystoscopy in 01/2019 -chronic inflammatory changes, bladder diverticuli Hx laparoscopic cholecystectomy S/P ureteral stent placement Family History Father CAD (coronary artery disease) Social History (Updated 08/12/19 @ 20:08 by Krista Henderson MD) Smoking and tobacco status: current every day smoker cigarettes Packs smoked per day: 1 Alcohol intake: never Substance/Drug Use: never Lives independently: Yes Marital status: Current occupational status: disabled Current gender identity: Male Vitals/I&O/Wt Last Vital Signs Temp 97.5 F L 08/12/19 15:46 Pulse 79 08/12/19 19:32 Resp 18 08/12/19 19:32 BP 136/85 08/12/19 19:32 Pulse Ox 95 08/12/19 19:32 08/12/19 08/12/19 08/12/19 06:59 14:59 22:59 Intake Total 50 / 50 Balance 50 / 50 Physical Exam Const: COMMON NORMALS: no acute distress and patient oriented x3 GENERAL APPEARANCE: cooperative, comfortable and disheveled NUTRITIONAL APPEARANCE: thin ORIENTATION/CONSCIOUSNESS: Yes awake HENMT: COMMON NORMALS: normocephalic, atraumatic, hearing grossly normal bilaterally and moist oral mucous membranes HEAD & SCALP: normocephalic and atraumatic Eye: COMMON NORMALS: Equal, round and reactive pupils present, EOMs intact bilaterally and conjunctivae normal CONJUNCTIVA: Yes conjunctivae normal PUPIL: Yes Equal, round and reactive pupils present Neck/C-Spine: COMMON NORMALS: full ROM GENERAL: Yes normal visual inspection and Yes trachea midline Resp: COMMON NORMALS: normal respiratory effort, No retractions, No use of accessory muscles and clear to auscultation bilaterally EFFORT & INSPECTION: Yes able to speak in complete sentences, Yes symmetric chest movement and No tachypneic AUSCULTATION: clear to auscultation bilaterally Cardio: COMMON NORMALS: regular rate, regular rhythm, S1 normal heart sound present, S2 normal heart sound present and No murmurs present (Cardio) RATE: regular rate RHYTHM: regular rhythm HEART SOUNDS: S1 normal heart sound present and S2 normal heart sound present GI: COMMON NORMALS: Soft to palpation and non-tender INSPECTION: Yes abdominal distension PALPATION: Yes Soft to palpation, No Tenderness to palpation present (GI) and Yes Bladder palpation abnormal Details: distended : BLADDER/KIDNEY EXAM: Yes Bladder palpation abnormal (distended) Extremity: COMMON NORMALS: normal to inspection, full ROM, no clubbing, cyanosis or edema and no pedal edema Neuro: COMMON NORMALS: patient oriented x3, moves all extremities, no focal motor deficits and no sensory deficits noted SENSORIUM/ORIENTATION: Yes alert Psych: COMMON NORMALS: mental status grossly normal, Normal thought process present, cooperative, normal affect and speech normal SPEECH: Yes normal speech THOUGHT PROCESS: Normal thought process present Skin: COMMON NORMALS: no rashes or lesions noted, no jaundice, no petechiae and no mottling GENERAL SKIN EXAM: no rashes or lesions noted NAILS: discolored (dirty) Urinary Catheter Management^: Lowery: Cath Placed During This Visit: yes Urethral Indwelling: Yes Reason for Continuing Indwelling Catheter: Acute Urinary Retention or Obstruction Urinary Catheter Date of Insertion: 08/12/19 Urinary Catheter Time of Insertion: 19:27 Data : 08/12/19 16:15 08/12/19 16:15 A&P Assessment and plan (1) Complicated UTI (urinary tract infection): -noted to have UA strongly indicative of infection with noted pyuria/nitrate/LE/bacteria/hematuria -noted urinary retention which is a known issue -f/u urine cx and blood cx -received dose of Ceftriaxone in ED, continue this for now -prior urine cx (03/2019) was contaminated -afebrile, noted leukocytosis with neutrophilic predominance; trend WBC, monitor vital signs; lactic acid-0.7 -Lowery catheter placed in ED for decompression -IVF hydration Status: Acute (2) Acute urinary retention: -has had issues with urinary retention in the past including during last admission in 03/2019 -had initially responded well to [facility] and has been f/u with Dr. Donohue -noted evidence of significant bladder distention, mild R and moderate L hydronephrosis which is a change in comparison to prior CT A/P done in 03/2019. Findings reviewed with Dr. 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; baseline Cr is around 1 -likely multifactorial given dehydration due to ongoing nausea/vomiting and poor oral intake in addition to noted infection with associated hydronephrosis -IV fluid hydration -monitor renal function, avoid nephrotoxins, renally dose meds -Lowery catheter in place -hold lasix due to renal impairment, concern for dehydration Status: Acute (5) Falls frequently: -appears to be quite deconditioned clinically and reports frequent falls often with bilateral knees giving out on him -at baseline ambulates with cane, walker; is pending delivery of WC -strict fall precautions -PT/OT evaluations; up with assist, bedside commode -anticipate even more generalized weakness in light of current infection Status: Acute (6) HTN (hypertension): -currently normotensive; continue to monitor vital signs Status: Chronic Qualifiers: Hypertension type: essential hypertension Qualified Code(s): I10 - Essential (primary) hypertension (7) COPD (chronic obstructive pulmonary disease): -not oxygen dependent at baseline -no change in sputum production, increased SOB, no exacerbation currently -f/u CXR report; per my review has noted hyperinflation but otherwise unremarkable -Neb treatments as needed -monitor respiratory status, supplemental oxygen as needed Status: Chronic Qualifiers: COPD type: unspecified COPD Qualified Code(s): J44.9 - Chronic obstructive pulmonary disease, unspecified (8) Macrocytic anemia: -has known chronic macrocytic anemia; baseline Hg appears to be 10-11 -monitor H/H -no active bleeding -FOBT ordered Status: Chronic Additional A&P Information -Chronic back pain, DJD and bilateral lumbar radiculopathy with prior back surgery; pain control as needed -GERD, resume PPI -Chronic smoker, 1 PPD, has noted allergy to nicotine -regular diet as tolerated -GI ppx with PPI -DVT ppx with heparin -Dispo: with ongoing and worsening deconditioning, poor hygiene and potential need for residential catheter maintenance, anticipate potential need for SNF placement, will consult case management -Code status: FULL code Attestations Medical Necessity Statement*: Doc [facility]'s hospital stay will require greater than 2 midnights for treatment of complicated UTI with associated renal impairment and hydronephrosis requiring a broad-spectrum IV antibiotic coverage, IV fluid hydration and catheter placement. Time Spent in Patient Care: Greater than 35 minutes (>than 50% of time spent in counselling and/or direct pt care on unit). Coding Level of Care Code Acute Data Analytics Specialist for Chg Fwd Diagnoses Complicated UTI (urinary tract infection) N39.0 Acute urinary retention R33.8 Hydronephrosis due to obstruction of bladder N13.30; N32.0 TYSON (acute kidney injury) N17.9 Falls frequently R29.6 HTN (hypertension) I10 Hypertension type: essential hypertension COPD (chronic obstructive pulmonary disease) J44.9 COPD type: unspecified COPD Macrocytic anemia D53.9
[2019-08-12 20:16] VITALS: BP 145/88; PULSE 87; RESP 16; O2SAT 98
--- NOTE | 2019-08-12 20:30 | PC.NURSE ---
Dr Boogie used [facility] for assessment of thoravac.
[2019-08-12 20:52] VITALS: BP 152/82; PULSE 90; RESP 22; TEMP 36.8; O2SAT 92
[2019-08-13] VITALS (16 sets, daily range): BP systolic 87–134; BP diastolic 50–71; PULSE 73–135; RESP 17–24; TEMP 36.3–36.9; O2SAT 90–95
[2019-08-13] MEDS: ipratropium-albuterol 3 mL Neb INHALATION ×4 (00:02→19:55)
[2019-08-13] MEDS: heparin 5,000 unit/mL INJ 1 mL 5000 UNIT SUBCUT ×3 (00:32→20:12)
[2019-08-13] MEDS: sodium chloride 0.9% 1,000 ML 100 ML IV ×3 (00:33→20:04)
[2019-08-13] MEDS: morphine 4 mg/mL SDV 1 mL 2 MG IVP (04:10)
[2019-08-13 05:45] LABS: Basophils % 0.2 %; Eosinophils # 0.5 10^3/uL (0.0-0.8); Hematocrit 29.6 % (42.0-52.0); Hemoglobin 9.3 g/dL (11.7-16.6); Lymphocytes # 0.7 10^3/uL (0.8-4.8); Lymphocytes % 5.9 %; Mean Corpuscular HGB Conc 31.4 g/dL (30.0-36.0); Mean Corpuscular Hemoglobin 31.1 pg (28.0-34.0); Mean Platelet Volume 10.6 fL (7.4-10.4); Monocytes # 0.7 10^3/uL (0.2-0.9); Monocytes % 6.4 %; Neutrophils # 9.4 10^3/uL (1.8-7.7); Neutrophils % 83.2 %; Nucleated Red Blood Cells % 0 %; Platelet Count 379 10^3/cmm (130-400); Red Blood Count 2.99 10^6/uL (4.1-5.3); Red Cell Distribution Width 14.6 % (12.1-15.1); White Blood Count 11.3 10^3/uL (4.0-10.0)
[2019-08-13 06:00] LABS: Blood Urea Nitrogen 19 mg/dL (8-23); Calcium 9.3 mg/dL (8.5-10.5); Carbon Dioxide 20 mmol/L (22-29); Chloride 106 mmol/L (98-107); Glucose 83 mg/dL (65-115); Osmolality Calculated 288 mOsm/kg (285-295); Sodium 141 mmol/L (136-145)
[2019-08-13] MEDS: cefTRIAXone 1,000 MG in sodium chloride 0.9% (plus) 50 ML 100 MG IV (08:14)
[2019-08-13] MEDS: fluoxetine 20 mg Capsule 60 MG PO (08:19)
[2019-08-13] MEDS: ondansetron 2 mg/ML SDV 2 mL 4 MG IVP (08:19)
[2019-08-13] MEDS: finasteride 5 mg Tablet PO (08:20)
[2019-08-13] MEDS: HYDROcodone-acetaminophen 5-325 mg Tablet 1 TAB PO ×4 (08:20→21:34)
[2019-08-13] MEDS: pantoprazole DR 40 mg Tablet PO ×2 (08:20→17:30)
--- NOTE | 2019-08-13 09:45 | PC.CHAP ---
Pastoral Care Encounter/Spiritual Assessment Type of Contact [] Declined release engineer visit [] Patient/Family/Request visit [] Outpatient visit [] Follow-up visit [] Physician referral [] Code/Alert [] Routine visit [] Staff referral [] Actively dying [] Patient sleeping [] Family support [] [] Out of room [] Palliative care [] [] Receiving care in room [] Pre-surgical visit [] Trauma [] Long length of stay [] ICU visit [] Other: Relational/Emotional Strength [] Patient feels connected with others/family/visitors/staff [] Distress [] Loneliness/isolation [] Abandonment Spirituality of Patient [] Person of Lou [] Attends Yazdanism of their Lou [] Believes in Prayer [] Reads Bible or Mormonism materials [] There are Spiritual issues to be addressed Auto Clocks Repairer Interventions [] Prayer [] Active listening [] Non-anxious presence [] Spiritual/emotional support [] Crisis/trauma care [] Spiritual counseling [] Bereavement support [] Provided bereavement packet [] Provided Bible/devotional materials [] Provided toy/stuffed animal, coloring book to patient or family member [] Provided Communion [] Anointing/Hiram [] Salvation [x] Completed spiritual assessment [] Other: Impact on Illness or Injury [] Angry [] Fearful [] Anxious [] Often cries [] Exhaustion [] Unable to work [] Unable to attend episcopal [] Unable to walk/stand [] Unable to read [] Unable to drive [] Unable to eat/drink [] Unable to sleep [] Unable to be with family [] Patient intubated [] Other: Summary Patient resting well Time spent with patient 10 min
--- NOTE | 2019-08-13 12:57 | PM.PN ---
Subjective Subjective: Interval history: Afebrile, low normal blood pressure overnight, noted tachycardia. No documented urine output overnight and patient is unsure if catheter bag was emptied overnight. Noted decreasing leukocytosis, slight drop in hemoglobin, improved renal function. Is quite adamant about not going to SNF, he wants to return home when he is discharged. Abdomen is much less distended, appetite is better but he is requesting assistance with meals as he is having difficulty feeding himself. Medications: Reviewed: Yes Medication Review Details: Active Medications Generic Name Dose Route Start Last Admin Trade Name Freq PRN Reason Stop Dose Admin Acetaminophen 650 mg 08/12/19 21:19 Tylenol PO Q6H PRN Mild/Mod Pain Or Temp >/= 101 Hydrocodone Bitart /Acetaminophen 1 tab 08/12/19 21:19 08/13/19 17:33 [place] 5-325 Mg PO 1 tab Q4H PRN Administration MODERATE TO SEVER E PAIN Albuterol/Ipratrop ium 3 ml 08/13/19 16:00 08/13/19 19:55 Duoneb INHALATION 3 ml Q4H.RESPIRATORY P RN Administration SHORTNESS OF SAURAV TH Finasteride 5 mg 08/13/19 09:00 08/13/19 08:20 Proscar PO 5 mg DAILY LATONYA Administration Fluoxetine HCl 60 mg 08/13/19 09:00 08/13/19 08:19 Prozac PO 60 mg DAILY LATONYA Administration Heparin Sodium (Be ef Lung) 5,000 unit 08/12/19 21:08/13/19 20:12 Heparin SUBCUT 5,000 unit Q12H LATONYA Administration Sodium Chloride 1,000 mls @ 100 m ls/hr 08/12/19 21:08/13/19 20:04 Sodium Chloride 0.9% IV 100 mls/hr .Q10H LATONYA Administration Ceftriaxone Sodium 1,000 mg/ 50 mls @ 100 mls/ hr 08/13/19 09:00 08/13/19 08:44 Sodium Chloride IV Infused DAILY LATONYA Infusion Protocol Morphine Sulfate 2 mg 08/12/19:08/13/19 04:10 Morphine IVP 2 mg Q4H PRN Administration SEVERE PAIN Ondansetron HCl 4 mg 08/12/19:08/13/19 08:19 Zofran IVP 4 mg Q6H PRN Administration vomiting, or N/V if npo Pantoprazole Sodiu m 40 mg 08/13/19 09:00 08/13/19 17:30 Protonix PO 40 mg BID LATONYA Administration Tamsulosin HCl 0.8 mg 08/13/19 18:00 08/13/19 17:30 Flomax PO 0.8 mg QPM LATONYA Administration nicotine Allergy (Mild, Verified 05/12/19 12:04) SKIN REACTION propoxyphene [From Darvon] Allergy (Verified 05/12/19 12:04) Unknown Vitals/I&O/Wt Last Vital Signs Temp 98.4 F 08/13/19 11:22 Pulse 120 H 08/13/19 11:22 Resp 18 08/13/19 11:22 BP 94/61 08/13/19 11:22 Pulse Ox 92 08/13/19 11:22 08/12/19 08/13/19 08/13/19 22:59 06:59 14:59 Intake Total 550 / 550 240 / 790 1340 / 1340 Output Total 0 / 0 Balance 550 / 550 240 / 790 1340 / 1340 Weight last 48 hrs Weight 63.503 kg Physical Exam Const: COMMON NORMALS: no acute distress, patient oriented x3 and alert GENERAL APPEARANCE: cooperative and comfortable NUTRITIONAL APPEARANCE: thin ORIENTATION/CONSCIOUSNESS: Yes awake HENMT: COMMON NORMALS: normocephalic, atraumatic, hearing grossly normal bilaterally and moist oral mucous membranes HEAD & SCALP: normocephalic and atraumatic Eye: COMMON NORMALS: Equal, round and reactive pupils present, EOMs intact bilaterally and conjunctivae normal CONJUNCTIVA: Yes conjunctivae normal PUPIL: Yes Equal, round and reactive pupils present Neck/C-Spine: COMMON NORMALS: full ROM GENERAL: Yes normal visual inspection and Yes trachea midline Resp: COMMON NORMALS: normal respiratory effort, No retractions, No use of accessory muscles and clear to auscultation bilaterally EFFORT & INSPECTION: Yes able to speak in complete sentences, Yes symmetric chest movement and No tachypneic AUSCULTATION: clear to auscultation bilaterally Cardio: COMMON NORMALS: regular rate, regular rhythm, S1 normal heart sound present, S2 normal heart sound present and No murmurs present (Cardio) RATE: regular rate RHYTHM: regular rhythm HEART SOUNDS: S1 normal heart sound present and S2 normal heart sound present GI: COMMON NORMALS: Soft to palpation and non-tender INSPECTION: Yes abdominal distension (much improved) PALPATION: Yes Soft to palpation and No Tenderness to palpation present (GI) : BLADDER/KIDNEY EXAM: Yes catheter in place Catheter type (Male): urethral Extremity: COMMON NORMALS: normal to inspection, full ROM, no clubbing, cyanosis or edema and no pedal edema Neuro: COMMON NORMALS: patient oriented x3, moves all extremities, no focal motor deficits and no sensory deficits noted SENSORIUM/ORIENTATION: Yes alert Psych: COMMON NORMALS: mental status grossly normal, Normal thought process present, cooperative, normal affect and speech normal ATTITUDE: Yes Belligerent attititude/behavior present (intermittently) SPEECH: Yes normal speech THOUGHT PROCESS: Normal thought process present Skin: COMMON NORMALS: no rashes or lesions noted, no jaundice, no petechiae and no mottling GENERAL SKIN EXAM: no rashes or lesions noted NAILS: discolored (dirty) Urinary Catheter Management^: Lowery: Cath Placed During This Visit: yes Urethral Indwelling: Yes Reason for Continuing Indwelling Catheter: Acute Urinary Retention or Obstruction Urinary Catheter Date of Insertion: 08/12/19 Urinary Catheter Time of Insertion: 19:27 Data : 08/13/19 04:54 08/13/19 04:54 Micro: Microbiology 08/12/19 22:05 Blood Culture - Preliminary Blood SPECIMEN COLLECTED 08/12/19 22:00 Blood Culture - Preliminary Blood SPECIMEN COLLECTED A&P Assessment and plan (1) Complicated UTI (urinary tract infection): -noted to have UA strongly indicative of infection with noted pyuria/nitrate/LE/bacteria/hematuria -noted urinary retention which is a known issue -f/u urine cx and blood cx -continue ceftriaxone -prior urine cx (03/2019) was contaminated -afebrile, noted decrease in leukocytosis with neutrophilic predominance; trend WBC, continue to monitor vital signs; lactic acid-0.7 -Lowery catheter placed in ED for decompression -IVF hydration Status: Acute (2) Acute urinary retention: -has had issues with urinary retention in the past including during last admission in 03/2019 -had initially responded well to [facility] and has been f/u with Dr. Donohue -noted evidence of significant bladder distention, mild R and moderate L hydronephrosis which is a change in comparison to prior CT A/P done in 03/2019. Findings reviewed with Dr. 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; baseline Cr is around 1 -likely multifactorial given dehydration due to ongoing nausea/vomiting and poor oral intake in addition to noted infection with associated hydronephrosis -IV fluid hydration -Improving renal function, continue to monitor, avoid nephrotoxins, renally dose meds -Lowery catheter in place -hold lasix due to renal impairment, concern for dehydration Status: Acute (5) Falls frequently: -appears to be quite deconditioned clinically and reports frequent falls often with bilateral knees giving out on him -at baseline ambulates with cane, walker; is pending delivery of WC -strict fall precautions -PT/OT evaluations; up with assist, bedside commode -anticipate even more generalized weakness in light of current infection Status: Acute (6) HTN (hypertension): -currently normotensive thoough intermittently low/low-normal BP; continue to monitor vital signs Status: Chronic Qualifiers: Hypertension type: essential hypertension Qualified Code(s): I10 - Essential (primary) hypertension (7) COPD (chronic obstructive pulmonary disease): -not oxygen dependent at baseline -no change in sputum production, increased SOB, no exacerbation currently -CXR per my review has noted hyperinflation but otherwise unremarkable -Neb treatments as needed -continue to monitor respiratory status, supplemental oxygen as needed Status: Chronic Qualifiers: COPD type: unspecified COPD Qualified Code(s): J44.9 - Chronic obstructive pulmonary disease, unspecified (8) Macrocytic anemia: -has known chronic macrocytic anemia; baseline Hg appears to be 10-11 -continue to monitor H/H -no active bleeding -FOBT ordered Status: Chronic Additional A&P Information -Chronic back pain, DJD and bilateral lumbar radiculopathy with prior back surgery; pain control as needed -GERD, on PPI -Chronic smoker, 1 PPD, has noted allergy to nicotine -regular diet as tolerated -GI ppx with PPI -DVT ppx with heparin -Dispo: with ongoing and worsening deconditioning, poor hygiene and potential need for buttermaker continuous churn catheter maintenance, offered SNF as option which he admantly refuses. He has HH services arranged through [place] which he wants to continue on discharge -Code status: FULL code Attestations Medical Necessity Statement*: Patient requires hospitalization for continued IV antibiotic treatment and IV fluid hydration for treatment of complicated UTI, pending culture results. Time Spent in Patient Care: 16 - 35 minutes (>than 50% of time spent in counselling and/or direct pt care on unit). Coding Level of Care Code Acute Technical Solution Architect for Chg Fwd Exam Comprehensive Diagnoses Complicated UTI (urinary tract infection) N39.0 Acute urinary retention R33.8 Hydronephrosis due to obstruction of bladder N13.30; N32.0 TYSON (acute kidney injury) N17.9 Falls frequently R29.6 HTN (hypertension) I10 Hypertension type: essential hypertension COPD (chronic obstructive pulmonary disease) J44.9 COPD type: unspecified COPD Macrocytic anemia D53.9
[2019-08-13] MEDS: tamsulosin 0.4 mg Capsule 0.8 MG PO (17:30)
[2019-08-14] VITALS (8 sets, daily range): BP systolic 138–164; BP diastolic 75–88; PULSE 67–77; RESP 16–20; TEMP 36.4–36.8; O2SAT 91–96
[2019-08-14] MEDS: HYDROcodone-acetaminophen 5-325 mg Tablet 1 TAB PO ×3 (01:55→16:52)
[2019-08-14 05:49] LABS: Basophils % 0.2 %; Eosinophils # 0.9 10^3/uL (0.0-0.8); Eosinophils % 10.7 %; Hematocrit 27.5 % (42.0-52.0); Hemoglobin 8.6 g/dL (11.7-16.6); Lymphocytes # 0.9 10^3/uL (0.8-4.8); Lymphocytes % 10.3 %; Mean Corpuscular HGB Conc 31.3 g/dL (30.0-36.0); Mean Corpuscular Hemoglobin 31.5 pg (28.0-34.0); Mean Corpuscular Volume 100.7 fL (80-94); Mean Platelet Volume 10.2 fL (7.4-10.4); Monocytes # 0.6 10^3/uL (0.2-0.9); Monocytes % 7.3 %; Neutrophils # 6.3 10^3/uL (1.8-7.7); Neutrophils % 71.2 %; Nucleated Red Blood Cells % 0 %; Platelet Count 337 10^3/cmm (130-400); Red Blood Count 2.73 10^6/uL (4.1-5.3); White Blood Count 8.8 10^3/uL (4.0-10.0)
[2019-08-14] MEDS: sodium chloride 0.9% 1,000 ML 100 ML IV ×2 (05:57→15:58)
[2019-08-14 06:06] LABS: Anion Gap 16.6 (5-19); Blood Urea Nitrogen 17 mg/dL (8-23); Calcium 8.3 mg/dL (8.5-10.5); Carbon Dioxide 22 mmol/L (22-29); Chloride 111 mmol/L (98-107); Glucose 89 mg/dL (65-115); Osmolality Calculated 296 mOsm/kg (285-295); Potassium 4.6 mmol/L (3.5-5.1); Sodium 145 mmol/L (136-145)
--- NOTE | 2019-08-14 07:15 | PC.NURSE ---
Patient ate a cup of Jello with a regular spoon at tis time without difficulty.
[2019-08-14] MEDS: cefTRIAXone 1,000 MG in sodium chloride 0.9% (plus) 50 ML 100 MG IV (08:40)
[2019-08-14] MEDS: finasteride 5 mg Tablet PO (08:40)
[2019-08-14] MEDS: fluoxetine 20 mg Capsule 60 MG PO (08:41)
[2019-08-14] MEDS: pantoprazole DR 40 mg Tablet PO (08:41)
[2019-08-14] MEDS: heparin 5,000 unit/mL INJ 1 mL 5000 UNIT SUBCUT (08:41)
--- NOTE | 2019-08-14 15:02 | PM.PN ---
Subjective Subjective: Interval history: Leukocytosis has resolved, stable hemoglobin, hemodynamically stable and afebrile, had 600 mL urine output overnight, renal function stable. Urine cultures pending. Patient sitting up in bed, no complaints but would like to go home today. Case discussed with Dr. Donohue and will discharge patient with Lowery catheter in place until follow-up in clinic next week. Medications: Reviewed: Yes Medication Review Details: Active Medications Generic Name Dose Route Start Last Admin Trade Name Freq PRN Reason Stop Dose Admin Acetaminophen 650 mg 08/12/19 21:19 Tylenol PO Q6H PRN Mild/Mod Pain Or Temp >/= 101 Hydrocodone Bitart /Acetaminophen 1 tab 08/12/19 21:19 08/14/19 08:40 [place] 5-325 Mg PO 1 tab Q4H PRN Administration MODERATE TO SEVER E PAIN Albuterol/Ipratrop ium 3 ml 08/13/19 16:00 08/13/19 19:55 Duoneb INHALATION 3 ml Q4H.RESPIRATORY P RN Administration SHORTNESS OF SAURAV TH Finasteride 5 mg 08/13/19 09:00 08/14/19 08:40 Proscar PO 5 mg DAILY LATONYA Administration Fluoxetine HCl 60 mg 08/13/19 09:00 08/14/19 08:41 Prozac PO 60 mg DAILY LATONYA Administration Heparin Sodium (Be ef Lung) 5,000 unit 08/12/19 21:08/14/19 08:41 Heparin SUBCUT 5,000 unit Q12H LATONYA Administration Sodium Chloride 1,000 mls @ 100 m ls/hr 08/12/19 21:08/14/19 05:57 Sodium Chloride 0.9% IV 100 mls/hr .Q10H LATONYA Administration Ceftriaxone Sodium 1,000 mg/ 50 mls @ 100 mls/ hr 08/13/19 09:00 08/14/19 08:40 Sodium Chloride IV 100 mls/hr DAILY LATONYA Administration Protocol Morphine Sulfate 2 mg 08/12/19:08/13/19 04:10 Morphine IVP 2 mg Q4H PRN Administration SEVERE PAIN Ondansetron HCl 4 mg 08/12/19 21:08/13/19 08:19 Zofran IVP 4 mg Q6H PRN Administration vomiting, or N/V if npo Pantoprazole Sodiu m 40 mg 08/13/19 09:00 08/14/19 08:41 Protonix PO 40 mg BID LATONYA Administration Tamsulosin HCl 0.8 mg 08/13/19 18:00 08/13/19 17:30 Flomax PO 0.8 mg QPM LATONYA Administration nicotine Allergy (Mild, Verified 05/12/19 12:04) SKIN REACTION propoxyphene [From Darvon] Allergy (Verified 05/12/19 12:04) Unknown Vitals/I&O/Wt Last Vital Signs Temp 98.2 F 08/14/19 11:55 Pulse 70 08/14/19 11:55 Resp 17 08/14/19 11:55 BP 160/84 08/14/19 11:55 Pulse Ox 96 08/14/19 11:55 08/14/19 08/14/19 08/14/19 06:59 14:59 22:59 Intake Total 1208.333 / 3518.333 360 / 360 Output Total 600 / 1450 300 / 300 Balance 608.333 / 2068.333 60 / 60 Weight last 48 hrs Weight 45.405 kg Weight 63.503 kg Physical Exam Const: COMMON NORMALS: no acute distress, patient oriented x3 and alert GENERAL APPEARANCE: cooperative and comfortable NUTRITIONAL APPEARANCE: thin ORIENTATION/CONSCIOUSNESS: Yes awake HENMT: COMMON NORMALS: normocephalic, atraumatic, hearing grossly normal bilaterally and moist oral mucous membranes HEAD & SCALP: normocephalic and atraumatic Eye: COMMON NORMALS: Equal, round and reactive pupils present, EOMs intact bilaterally and conjunctivae normal CONJUNCTIVA: Yes conjunctivae normal PUPIL: Yes Equal, round and reactive pupils present Neck/C-Spine: COMMON NORMALS: full ROM GENERAL: Yes normal visual inspection and Yes trachea midline Resp: COMMON NORMALS: normal respiratory effort, No retractions, No use of accessory muscles and clear to auscultation bilaterally EFFORT & INSPECTION: Yes able to speak in complete sentences, Yes symmetric chest movement and No tachypneic AUSCULTATION: clear to auscultation bilaterally Cardio: COMMON NORMALS: regular rate, regular rhythm, S1 normal heart sound present, S2 normal heart sound present and No murmurs present (Cardio) RATE: regular rate RHYTHM: regular rhythm HEART SOUNDS: S1 normal heart sound present and S2 normal heart sound present GI: COMMON NORMALS: Soft to palpation and non-tender INSPECTION: Yes abdominal distension (much improved) PALPATION: Yes Soft to palpation and No Tenderness to palpation present (GI) : BLADDER/KIDNEY EXAM: Yes catheter in place Extremity: COMMON NORMALS: normal to inspection, full ROM, no clubbing, cyanosis or edema and no pedal edema Neuro: COMMON NORMALS: patient oriented x3, moves all extremities, no focal motor deficits and no sensory deficits noted SENSORIUM/ORIENTATION: Yes alert Psych: COMMON NORMALS: mental status grossly normal, Normal thought process present, cooperative, normal affect and speech normal ATTITUDE: Yes Belligerent attititude/behavior present (intermittently) SPEECH: Yes normal speech THOUGHT PROCESS: Normal thought process present Skin: COMMON NORMALS: no rashes or lesions noted, no jaundice, no petechiae and no mottling GENERAL SKIN EXAM: no rashes or lesions noted NAILS: discolored (dirty) Urinary Catheter Management^: Lowery: Cath Placed During This Visit: yes Urethral Indwelling: Yes Reason for Continuing Indwelling Catheter: Chronic Indwelling Urinary Catheter on Admission Urinary Catheter Date of Insertion: 08/12/19 Urinary Catheter Time of Insertion: 19:27 Data : 08/14/19 05:20 08/14/19 05:20 Micro: Microbiology 08/12/19 16:31 Urine Culture - Preliminary Urine,Clean Catch Gram Negative Rods 08/12/19 22:05 Blood Culture - Preliminary Blood NEGATIVE TO DATE 08/12/19 22:00 Blood Culture - Preliminary Blood NEGATIVE TO DATE A&P Assessment and plan (1) Complicated UTI (urinary tract infection): -noted to have UA strongly indicative of infection with noted pyuria/nitrate/LE/bacteria/hematuria -noted urinary retention which is a known issue -urine cx: GNRs, pending ID & sensitivity; has had multiple urine cultures which were contaminated or negative -blood cx: prelim negative -continue ceftriaxone; will likely discharge on ciprofloxacin to complete treatment course. Would avoid Bactrim secondary to need to avoid renal impairment -prior urine cx (03/2019) was contaminated -afebrile, leukocytosis resolved, lactic acid-0.7 -continue to monitor vital signs -Lowery catheter placed in ED for decompression -IVF hydration with caution to avoid fluid overload Status: Acute (2) Acute urinary retention: -has had issues with urinary retention in the past including during last admission in 03/2019 -had initially responded well to [facility] and has been f/u with Dr. Donohue -noted evidence of significant bladder distention, mild R and moderate L hydronephrosis which is a change in comparison to prior CT A/P done in 03/2019. Findings reviewed with Dr. 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; baseline Cr is around 1 -likely multifactorial given dehydration due to ongoing nausea/vomiting and poor oral intake in addition to noted infection with associated hydronephrosis -IV fluid hydration -Improving renal function, continue to monitor, avoid nephrotoxins, renally dose meds -Lowery catheter in place -hold lasix due to renal impairment, concern for dehydration Status: Acute (5) Falls frequently: -appears to be quite deconditioned clinically and reports frequent falls often with bilateral knees giving out on him -at baseline ambulates with cane, walker; is pending delivery of WC -strict fall precautions -PT/OT evaluations; up with assist, bedside commode -anticipate even more generalized weakness in light of current infection Status: Acute (6) HTN (hypertension): -currently normotensive thoough intermittently low/low-normal BP; continue to monitor vital signs Status: Chronic (7) COPD (chronic obstructive pulmonary disease): -not oxygen dependent at baseline -no change in sputum production, increased SOB, no exacerbation currently -CXR per my review has noted hyperinflation but otherwise unremarkable -Neb treatments as needed -continue to monitor respiratory status, supplemental oxygen as needed Status: Chronic (8) Macrocytic anemia: -has known chronic macrocytic anemia; baseline Hg appears to be 10-11 -continue to monitor H/H -no active bleeding -FOBT ordered Status: Chronic Additional A&P Information -Chronic back pain, DJD and bilateral lumbar radiculopathy with prior back surgery; pain control as needed -GERD, on PPI -Chronic smoker, 1 PPD, has noted allergy to nicotine -regular diet as tolerated -GI ppx with PPI -DVT ppx with heparin -Dispo: with ongoing and worsening deconditioning, poor hygiene and potential need for buttermaker helper catheter maintenance, offered SNF as option which he admantly refuses. He has HH services arranged through [place] which he wants to continue on discharge -Code status: FULL code Attestations Medical Necessity Statement*: Discharge home today Time Spent in Patient Care: 16 - 35 minutes (>than 50% of time spent in counselling and/or direct pt care on unit). Coding Level of Care Code Acute Addictions Counselor Assistant for g Fwd Exam Comprehensive Diagnoses Complicated UTI (urinary tract infection) N39.0 Acute urinary retention R33.8 Hydronephrosis due to obstruction of bladder N13.30; N32.0 TYSON (acute kidney injury) N17.9 Falls frequently R29.6 HTN (hypertension) I10 COPD (chronic obstructive pulmonary disease) J44.9 Macrocytic anemia D53.9
--- NOTE | 2019-08-14 17:22 | P.DS_ITS ---
Discharge Providers Date of Admission: 08/12/19 17:58 Date of Discharge: August 14, 2019 Attending Provider at Admission: Krista Henderson MD Attending Provider at Discharge: Krista Henderson MD Primary Care Provider: ZEINAB Almaguer Diagnoses at Discharge Discharge Diagnosis (1) Complicated UTI (urinary tract infection): Status: Acute Problem details: -noted to have UA strongly indicative of infection with noted pyuria/nitrate/LE/bacteria/hematuria -noted urinary retention which is a known issue -urine cx: GNRs, pending ID & sensitivity; has had multiple urine cultures which were contaminated or negative -blood cx: prelim negative -continue ceftriaxone; will likely discharge on ciprofloxacin to complete treatment course. Would avoid Bactrim secondary to need to avoid renal impairment -prior urine cx (03/2019) was contaminated -afebrile, leukocytosis resolved, lactic acid-0.7 -continue to monitor vital signs -Lowery catheter placed in ED for decompression -IVF hydration with caution to avoid fluid overload (2) Acute urinary retention: Status: Chronic Problem details: -has had issues with urinary retention in the past including during last admission in 03/2019 -had initially responded well to [facility] and has been f/u with Dr. Donohue -noted evidence of significant bladder distention, mild R and moderate L hydronephrosis which is a change in comparison to prior CT A/P done in 03/2019. Findings reviewed with Dr. 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; baseline Cr is around 1 -likely multifactorial given dehydration due to ongoing nausea/vomiting and poor oral intake in addition to noted infection with associated hydronephrosis -IV fluid hydration -Improving renal function, continue to monitor, avoid nephrotoxins, renally dose meds -Lowery catheter in place -hold lasix due to renal impairment, concern for dehydration (5) Falls frequently: Status: Acute Problem details: -appears to be quite deconditioned clinically and reports frequent falls often with bilateral knees giving out on him -at baseline ambulates with cane, walker; is pending delivery of WC -strict fall precautions -PT/OT evaluations; up with assist, bedside commode -anticipate even more generalized weakness in light of current infection -has adamantly declined SNF placement (6) HTN (hypertension): Status: Chronic Problem details: -currently normotensive thoough intermittently low/low-normal BP; continue to monitor vital signs Qualifiers: Hypertension type: essential hypertension Qualified Code(s): I10 - Es sential (primary) hypertension (7) COPD (chronic obstructive pulmonary disease): Status: Chronic Problem details: -not oxygen dependent at baseline -no change in sputum production, increased SOB, no exacerbation currently -CXR per my review has noted hyperinflation but otherwise unremarkable -Neb treatments as needed -continue to monitor respiratory status, supplemental oxygen as needed Qualifiers: COPD type: unspecified COPD Qualified Code(s): J44.9 - Chronic obstructive pulmonary disease, unspecified (8) Macrocytic anemia: Status: Chronic Problem details: -has known chronic macrocytic anemia; baseline Hg appears to be 10-11 -continue to monitor H/H -no active bleeding -FOBT ordered Other Information Additional DC diagnoses/information: -Chronic back pain, DJD and bilateral lumbar radiculopathy with prior back surgery; pain control as needed -GERD, on PPI -Chronic smoker, 1 PPD, has noted allergy to nicotine Reason for Visit Reason for Visit: Reason For Visit: URINARY RETENTIONL CYSTITIS; TYSON Hospital Course Hospital Course: Patient was admitted to the medical surgical floor and started on broad-spectrum IV antibiotic treatment. Due to noted hydronephrosis and urinary retention with noticeable significant abdominal distention on arrival to the ER he had a Lowery catheter placed. Case was discussed with Dr. Donohue including imaging findings with recommendations made to continue treatment of underlying infection and maintain bladder decompression. He had noted renal impairment which has improved with IV fluid hydration and bladder decompression. He has been afebrile, hemodynamically stable. Blood cultures have been prelim negative and urine cultures are growing gram-negative rods though ID and sensitivity are pending. Patient is quite eager to go home and will likely leave AMA if not appropriately discharged putting him at risk for worsening infection without appropriate treatment. In light of presence of Lowery catheter, noted underlying renal impairment will discharge patient on oral ciprofloxacin for continued treatment of complicated UTI. He has previously been treated with Bactrim which I would avoid to avoid further renal impairment. He will be discharged with Lowery catheter in place to allow for continued bladder decompression until appropriate follow-up with Dr. Donohue next week in addition to a course of oral antibiotics. Prior urine cultures have either been negative or contaminated so little guidance in terms of prior sensitivity profile sent to reference. He really has established home health services which he is to continue on his return home. Lowery catheter should be emptied as needed, penile area kept clean and dry. Discharge Summary: -Patient to follow-up with primary care provider within 1 week -Patient to follow-up with Dr. Donohue next week Physical Exam Const: COMMON NORMALS: no acute distress, patient oriented x3 and alert GENERAL APPEARANCE: cooperative and comfortable NUTRITIONAL APPEARANCE: thin ORIENTATION/CONSCIOUSNESS: Yes awake HENMT: COMMON NORMALS: normocephalic, atraumatic, hearing grossly normal bilaterally and moist oral mucous membranes HEAD & SCALP: normocephalic and atraumatic Eye: COMMON NORMALS: Equal, round and reactive pupils present, EOMs intact bilaterally and conjunctivae normal CONJUNCTIVA: Yes conjunctivae normal PUPIL: Yes Equal, round and reactive pupils present Neck/C-Spine: COMMON NORMALS: full ROM GENERAL: Yes normal visual inspection and Yes trachea midline Resp: COMMON NORMALS: normal respiratory effort, No retractions, No use of accessory muscles and clear to auscultation bilaterally EFFORT & INSPECTION: Yes able to speak in complete sentences, Yes symmetric chest movement and No tachypneic AUSCULTATION: clear to auscultation bilaterally Cardio: COMMON NORMALS: regular rate, regular rhythm, S1 normal heart sound present, S2 normal heart sound present and No murmurs present (Cardio) RATE: regular rate RHYTHM: regular rhythm HEART SOUNDS: S1 normal heart sound present and S2 normal heart sound present GI: COMMON NORMALS: Soft to palpation and non-tender INSPECTION: Yes abdominal distension (much improved) PALPATION: Yes Soft to palpation and No Tenderness to palpation present (GI) : BLADDER/KIDNEY EXAM: Yes catheter in place Extremity: COMMON NORMALS: normal to inspection, full ROM, no clubbing, cyanosis or edema and no pedal edema Neuro: COMMON NORMALS: patient oriented x3, moves all extremities, no focal motor deficits and no sensory deficits noted SENSORIUM/ORIENTATION: Yes alert Psych: COMMON NORMALS: mental status grossly normal, Normal thought process present, cooperative, normal affect and speech normal ATTITUDE: Yes Belligerent attititude/behavior present (intermittently) SPEECH: Yes normal speech THOUGHT PROCESS: Normal thought process present Skin: COMMON NORMALS: no rashes or lesions noted, no jaundice, no petechiae and no mottling GENERAL SKIN EXAM: no rashes or lesions noted NAILS: discolored (dirty) Urinary Catheter Management^: Lowery: Cath Placed During This Visit: yes Urethral Indwelling: Yes Reason for Continuing Indwelling Catheter: Chronic Indwelling Urinary Catheter on Admission Urinary Catheter Date of Insertion: 08/12/19 Urinary Catheter Time of Insertion: 19:27 Discharge Data Data Completed and Pending: Completed Studies During Hospitalization Category Date Time Status CT abdomen pelvis w con* [id number] Stat Cat Scan 08/12/19 16:01 Completed XR chest 1V farhad ble [id number] Stat Exams 08/12/19 16:01 Completed Pending at discharge Category Date Time Status Arterial Blood Ga s Full Stat Lab 08/12/19 16:29 Results Basic Metabolic P lauren AM LABS Lab 08/15/19 04:00 Ordered Blood Culture Sta t Lab 08/12/19 22:05 Results Hemoglobin and He matocrit AM LABS Lab 08/15/19 04:00 Ordered Immunochemical Fe amarilis OCB Routine Lab 08/12/19 17:00 Uncollected Urine Culture Sta t Lab 08/12/19 16:31 Results Labs from last 24 hours 08/14/19 08/14/19 05:20 05:20 WBC 8.8 RBC 2.73 L Hgb 8.6 L Hct 27.5 L MCV 100.7 H MCH 31.5 MCHC 31.3 RDW 15.0 Plt Count 337 MPV 10.2 Neut % (Auto) 71.2 Lymph % (Auto) 10.3 [place] % (Auto) 7.3 Eos % (Auto) 10.7 Baso % (Auto) 0.2 Neut # (Auto) 6.3 Lymph # (Auto) 0.9 [place] # (Auto) 0.6 Eos # (Auto) 0.9 H Baso # (Auto) 0.0 Nucleated RBC % (a uto) 0 Nucleated RBCs # 0.0 Sodium 145 Potassium 4.6 Chloride 111 H Carbon Dioxide 22 Anion Gap 16.6 BUN 17 Creatinine 1.3 H Glucose 89 Calculated Osmolal ity 296 H Calcium 8.3 L Vitals: Last Vital Signs Temp 97.8 F 08/14/19 16:00 Pulse 73 08/14/19 16:00 Resp 18 08/14/19 16:00 BP 163/87 08/14/19 16:00 Pulse Ox 94 08/14/19 16:00 Discharge Plan Discharge Patient Disposition: Home Health Service Condition: Stable Prescriptions: New ciprofloxacin HCl 500 mg tablet 500 mg PO BID 7 Days Qty: 14 RF: 0 Continued ipratropium-albuterol 0.5 mg-3 mg(2.5 mg base)/3 mL Solution For Nebulization See Rx Instructions .ROUTE .COMPLEX RF: 0 tamsulosin [Flomax] 0.4 mg Capsule 0.8 mg PO QPM RF: 0 carbamide peroxide 6.5 % Drops 3 drp otic (ear) BID RF: 0 docusate sodium [Colace] 100 mg Capsule 100 mg PO BID RF: 0 omeprazole 20 mg Capsule,Delayed Release(Dr/Ec) 20 mg PO BID RF: 0 furosemide [Lasix] 20 mg Tablet 20 mg PO DAILY PRN (Reason: Edema) RF: 0 fluoxetine [Prozac] 20 mg Capsule 60 mg PO DAILY RF: 0 Eucerin Cream 1 applic TOPICAL DAILY RF: 0 ipratropium-albuterol 20-100 mcg/actuation Mist 1 puff INHALATION QID MDD 6 PUFFS RF: 0 Multiple Vitamins Tablet See Rx Instructions .ROUTE .COMPLEX RF: 0 finasteride 5 mg tablet 5 mg PO DAILY RF: 0 Discharge Orders: Discharge Order (Routine); Ordered 08/14/19 Ordered By: Krista Henderson Referrals: Shade Donohue MD [Physician] - 1 week (Follow-up for complicated UTI with hydronephrosis at the [facility] [place] [facility] clinic in one week. There office is open 8-5 Sunday through Sunday. ) Janet Martinez FNP [Primary Care Provider] - 4-7 days (Post hospital discharge follow-up. Treated for complicated UTI with associated hydronephrosis. Has indwelling Lowery catheter in place. Discharged on a course of ciprofloxacin Please contact your PCP on the next business day to schedule a follow up appointment 4-7 days after your discharge date. ) Discharge Diet: Regular Discharge Activity: Resume usual activity Patient Instructions: Ciprofloxacin (By mouth), Acute Kidney Injury (DC), Urinary Tract Infection in Men (DC), Hydronephrosis (DC) Activity Restrictions/Additional Instructions: -Please keep Lowery catheter in place, to be emptied as needed, until follow-up with Dr. Donohue -Please keep penile area clean and dry Discharge Attestations Time Spent in Discharge Care*: greater than 30 min Specific Discharge Activities: Specific discharge activities: educating patient, discussing with pcp/other providers, discussing with renal case manager/social workers/dc planners, documenting/other paperwork and evaluating patient/reviewing data Status at Discharge: Cognitive status at discharge: cognitively intact , Behavioral status at discharge: cooperative and can be uncooperative , Functional status at discharge: independent ambulation Overall status at discharge: patient is progressing back to baseline Quality Metrics Clinical Quality Measures During this hospital stay, did patient experience: None Coding Level of Care Code Acute System Analyst for Chg Fwd Diagnoses Complicated UTI (urinary tract infection) N39.0 Acute urinary retention R33.8 Hydronephrosis due to obstruction of bladder N13.30; N32.0 TYSON (acute kidney injury) N17.9 Falls frequently R29.6 HTN (hypertension) I10 Hypertension type: essential hypertension COPD (chronic obstructive pulmonary disease) J44.9 COPD type: unspecified COPD Macrocytic anemia D53.9
--- NOTE | 2019-08-14 18:30 | PC.NURSE ---
Reviewed discharge with patient which included that he needed to pick his antibiotic up from the pharmacy and to follow up next week with Dr. Donohue and Janet ARRIOLA. Patient verbalized understanding. IV removed intact. Patient tolerated well. Patient is A&Ox3. Patient wheel chaired to friend [place] [phone] car.
== END 2019-08-14 18:30 | disposition home health service (06) | DRG 690 ==
LOC: ER 20:23 → MEDSURG 20:24
PROVIDERS: Family Medicine; Admitting Provider Family Medicine; PCP Nurse Practitioner Family; Visit Provider Family Medicine
DX: N39.0 Urinary tract infection, site not specified (principal); N17.9 Acute kidney failure, unspecified; J44.9 Chronic obstructive pulmonary disease, unspecified; N32.0 Bladder-neck obstruction; N13.30 Unspecified hydronephrosis; R33.8 Other retention of urine; N18.3 Chronic kidney disease, stage 3 (moderate); Z91.81 History of falling; D53.9 Nutritional anemia, unspecified; I12.9 Hypertensive chronic kidney disease with stage 1 through stage 4 chronic kidney disease, or unspecified chronic kidney disease; K21.9 Gastro-esophageal reflux disease without esophagitis; F17.210 Nicotine dependence, cigarettes, uncomplicated; G89.29 Other chronic pain; M54.9 Dorsalgia, unspecified; M19.90 Unspecified osteoarthritis, unspecified site; M54.16 Radiculopathy, lumbar region; Z86.73 Personal history of transient ischemic attack (TIA), and cerebral infarction without residual deficits
CPT/HCPCS: 12345; 36415; 36600; 51702; 71045; 74177; 80048; 80051; 80053; 81001; 82810; 83605; 83690; 83986; 85025; 87040; 87077; 87086; 87186; 87804; 93005; 94640; 96372; 96375; 97161; 97165; 97530; 97535; 99283; J0696; J1644; J2270; J2405; J3535; J7030; J7040; Q9967

== ENCOUNTER 2019-08-14 22:52 | Emergency (ER) | payer OTHER, MEDICARE, SELFPAY ==
--- NOTE | 2019-08-14 22:58 | ED_ITS ---
HPI - Male Genitourinary General: Chief complaint: Urogenital-Male Stated complaint: CATHETER ISSUES Time Seen by Provider: 08/14/19 22:57 Source: patient and EMS Mode of arrival: EMS Limitations: no limitations History of Present Illness: HPI Narrative: 74-year-old male who was discharged from hospital today with a Lowery. Patient states he is concerned it may fall out because he is securing of his leg bag and came off his leg. Patient's Lowery is in place and has been draining. He denies any pain or blood or fever. Associated symptoms: Deny dysuria, nausea or vomiting Review of Systems Const: Denies: fever(s), chills, body aches or change in appetite Eyes: Denies: blurry vision or eye discomfort ENMT: Denies: throat pain or dental pain Card: Denies: chest pain Resp: Denies: dyspnea GI: Denies: abdominal pain, nausea, vomiting or diarrhea : Denies: dysuria Musc: Denies: neck pain or back pain Skin/Breast: Denies: rash Neuro: Denies: headache(s) Psych: Denies: depression Tae/Lymph: Denies: easy bruising All/Imm: Denies: urticaria PFSH ED PFSH: Medical History Acute urinary retention -has had issues with urinary retention in the past including during last admission in 03/2019 -had initially responded well to [facility] and has been f/u with Dr. Donohue -noted evidence of significant bladder distention, mild R and moderate L hydronephrosis which is a change in comparison to prior CT A/P done in 03/2019. Findings reviewed with Dr. Donohue who agrees with bladder decompression with Lowery catheter placement and treatment of infection -continue to monitor urine output -on finasteride and tamsulosin Ascending aortic aneurysm Bradycardia Chronic back pain Chronic neck pain Compression fracture of L1 lumbar vertebra COPD (chronic obstructive pulmonary disease) -not oxygen dependent at baseline -no change in sputum production, increased SOB, no exacerbation currently -CXR per my review has noted hyperinflation but otherwise unremarkable -Neb treatments as needed -continue to monitor respiratory status, supplemental oxygen as needed CVA (cerebral vascular accident) Cystitis with hematuria -Status post CBI, follow with Dr. Donohue as outpatient GERD (gastroesophageal reflux disease) Gross hematuria HTN (hypertension) -currently normotensive thoough intermittently low/low-normal BP; continue to monitor vital signs Macrocytic anemia -has known chronic macrocytic anemia; baseline Hg appears to be 10-11 -continue to monitor H/H -no active bleeding -FOBT ordered Multilevel degenerative disc disease Spinal stenosis, site unspecified Surgical History H/O laminectomy L5-S1 HEMILANIECTOMIES H/O shoulder surgery H/O spinal fusion C5-C6 History of cystoscopy in 01/2019 -chronic inflammatory changes, bladder diverticuli Hx laparoscopic cholecystectomy S/P ureteral stent placement Family History Father CAD (coronary artery disease) Social History Smoking and tobacco status: current every day smoker cigarettes Packs smoked per day: 1 Alcohol intake: never Lives independently: Yes Marital status: Current occupational status: disabled Current gender identity: Male Physical Exam Const: COMMON NORMALS: no acute distress, patient oriented x3 and healthy appearing HENMT: COMMON NORMALS: normocephalic and atraumatic HEAD & SCALP: normocephalic and atraumatic Eye: COMMON NORMALS: Equal, round and reactive pupils present and EOMs intact bilaterally PUPIL: Yes Equal, round and reactive pupils present Neck/C-Spine: COMMON NORMALS: full ROM and supple Chest: COMMONS NORMALS: normal inspection of the chest and normal palpation of entire chest wall Resp: COMMON NORMALS: normal respiratory effort, No retractions, No use of accessory muscles and clear to auscultation bilaterally AUSCULTATION: clear to auscultation bilaterally Cardio: COMMON NORMALS: regular rate, regular rhythm and No murmurs present (Cardio) RATE: regular rate RHYTHM: regular rhythm GI: COMMON NORMALS: Normal to inspection, nondistended, normoactive bowel sounds present, Soft to palpation, non-tender and no masses PALPATION: Yes Soft to palpation : OTHER: Lowery is in place and is draining well. Extremity: COMMON NORMALS: normal to inspection and full ROM Neuro: COMMON NORMALS: patient oriented x3, moves all extremities and no focal motor deficits Psych: COMMON NORMALS: mental status grossly normal, Normal thought process present and cooperative THOUGHT PROCESS: Normal thought process present Skin: COMMON NORMALS: no rashes or lesions noted and no wounds GENERAL SKIN EXAM: no rashes or lesions noted Course Vital Signs: Vital signs: Vital Signs Temperature 97.5 F L 08/14/19 23:00 Pulse Rate 72 08/14/19 23:00 Respiratory Rate 18 08/14/19 23:00 Blood Pressure 135/78 08/14/19 23:00 Pulse Oximetry 94 08/14/19 23:00 MDM - Male MDM Narrative: Medical decision making narrative: Patient presents here with problems with his Lowery. Lowery was flushed and is working well. Lowery was strapped back to his leg and he is well-appearing here and is stable for discharge. Discharge Plan Discharge Patient Disposition: Home, Self-Care Clinical Impression: Lowery catheter problem Qualifiers: Encounter type: initial encounter Qualified Code(s): T83.9XXA - Unspecified complication of genitourinary prosthetic device, implant and graft, initial encounter Condition: Stable Prescriptions: No Action ipratropium-albuterol 0.5 mg-3 mg(2.5 mg base)/3 mL Solution For Nebulization See Rx Instructions .ROUTE .COMPLEX RF: 0 tamsulosin [Flomax] 0.4 mg Capsule 0.8 mg PO QPM RF: 0 carbamide peroxide 6.5 % Drops 3 drp otic (ear) BID RF: 0 docusate sodium [Colace] 100 mg Capsule 100 mg PO BID RF: 0 omeprazole 20 mg Capsule,Delayed Release(Dr/Ec) 20 mg PO BID RF: 0 furosemide [Lasix] 20 mg Tablet 20 mg PO DAILY PRN (Reason: Edema) RF: 0 fluoxetine [Prozac] 20 mg Capsule 60 mg PO DAILY RF: 0 Eucerin Cream 1 applic TOPICAL DAILY RF: 0 ipratropium-albuterol 20-100 mcg/actuation Mist 1 puff INHALATION QID MDD 6 PUFFS RF: 0 Multiple Vitamins Tablet See Rx Instructions .ROUTE .COMPLEX RF: 0 finasteride 5 mg tablet 5 mg PO DAILY RF: 0 ciprofloxacin HCl 500 mg tablet 500 mg PO BID 7 Days Qty: 14 RF: 0 Discharge Orders: Discharge Order (Routine); Ordered 08/14/19 Ordered By: Korby Hugo Referrals: Shade Donohue MD [Physician] - 4-7 days Janet Martinez FNP [Primary Care Provider] - Discharge Diet: Advance as tolerated Discharge Activity: Resume usual activity Patient Instructions: Lowery Catheter Placement and Care (ED) Coding Level of Care Code ED Molded Goods Inspector Trimmer for Chg Fwd Exam Comprehensive
[2019-08-14 23:00] VITALS: BP 135/78; PULSE 72; RESP 18; TEMP 36.4; O2SAT 94; BMI 14.5
[2019-08-15 00:33] VITALS: BP 141/83; PULSE 63; RESP 18; O2SAT 93
[2019-08-15 01:47] VITALS: BP 152/85; PULSE 76; RESP 18; O2SAT 92
--- NOTE | 2019-08-15 10:44 | DCPLANNER ---
commissions manager had message to schedule a follow up appointment for patient with Dr. Donohue. commissions manager called the office of Dr. Donohue, spoke with Ankita. commissions manager gave clinic patients information, was told that patients information would be printed and given to Marine for review. Clinic will call patient with appointment information. commissions manager will call for appointment information.
--- NOTE | 2019-08-21 14:27 | DCPLANNER ---
Patient has a follow up appointment scheduled with Dr. Donohue for Sunday, August 30, 2019 at 3:30. Clinic will call patient wit appointment information.
--- NOTE | 2019-09-02 10:00 | DCPLANNER ---
Patient attended appointment scheduled with Dr. Donohue.
== END 2019-08-15 01:52 | disposition home or self-care (01) ==
LOC: ER 23:29
PROVIDERS: Emergency Provider Emergency Medicine; PCP Nurse Practitioner Family
DX: T83.9XXA Unspecified complication of genitourinary prosthetic device, implant and graft, initial encounter (principal); J44.9 Chronic obstructive pulmonary disease, unspecified; Z09 Encounter for follow-up examination after completed treatment for conditions other than malignant neoplasm; Z86.73 Personal history of transient ischemic attack (TIA), and cerebral infarction without residual deficits; I10 Essential (primary) hypertension; F17.210 Nicotine dependence, cigarettes, uncomplicated
CPT/HCPCS: 12345; 99281; 99282

== ENCOUNTER 2019-08-29 06:54 | Emergency (ER) | payer OTHER, MEDICARE, SELFPAY ==
[2019-08-29 06:54] VITALS: BP 124/67; PULSE 78; RESP 16; TEMP 36.6; O2SAT 97; BMI 17.7
--- NOTE | 2019-08-29 06:57 | W.ED.ABDPA2 ---
HPI - Abdominal Pain General: Chief Complaint: Abdominal Pain Stated Complaint: CONSTIPATION Time Seen by Provider: 08/29/19 06:57 Source: patient Mode of arrival: ambulatory Limitations: no limitations History of Present Illness: HPI narrative: Patient comes in today for complaints of constipation. Patient states that he had tried to have a bowel movement this morning and was unable to defecate but noticed blood when he wiped. Patient appears well. Patient has a history of renal insufficiency, lumbar radiculopathy, urinary retention, spinal stenosis and COPD. Associated Symptoms: Reports constipation Review of Systems General: Reports: 10 or more systems reviewed and unremarkable except in HPI and below GI: Reports: constipation PFSH ED PFSH: Medical History (Updated 08/29/19 @ 08:33 by LIBBY VelasquezP) Acute urinary retention -has had issues with urinary retention in the past including during last admission in 03/2019 -had initially responded well to [facility] and has been f/u with Dr. Donohue -noted evidence of significant bladder distention, mild R and moderate L hydronephrosis which is a change in comparison to prior CT A/P done in 03/2019. Findings reviewed with Dr. Donohue who agrees with bladder decompression with Lowery catheter placement and treatment of infection -continue to monitor urine output -on finasteride and tamsulosin Ascending aortic aneurysm Bradycardia Chronic back pain Chronic neck pain Compression fracture of L1 lumbar vertebra COPD (chronic obstructive pulmonary disease) -not oxygen dependent at baseline -no change in sputum production, increased SOB, no exacerbation currently -CXR per my review has noted hyperinflation but otherwise unremarkable -Neb treatments as needed -continue to monitor respiratory status, supplemental oxygen as needed CVA (cerebral vascular accident) Cystitis with hematuria -Status post CBI, follow with Dr. Donohue as outpatient GERD (gastroesophageal reflux disease) Gross hematuria HTN (hypertension) -currently normotensive thoough intermittently low/low-normal BP; continue to monitor vital signs Macrocytic anemia -has known chronic macrocytic anemia; baseline Hg appears to be 10-11 -continue to monitor H/H -no active bleeding -FOBT ordered Multilevel degenerative disc disease Spinal stenosis, site unspecified Urinary retention Surgical History H/O laminectomy L5-S1 HEMILANIECTOMIES H/O shoulder surgery H/O spinal fusion C5-C6 History of cystoscopy in 01/2019 -chronic inflammatory changes, bladder diverticuli Hx laparoscopic cholecystectomy S/P ureteral stent placement Family History Father CAD (coronary artery disease) Social History Smoking and tobacco status: current every day smoker cigarettes Packs smoked per day: 1 Alcohol intake: never Lives independently: Yes Marital status: Current occupational status: disabled Current gender identity: Male Physical Exam Const: COMMON NORMALS: no acute distress and patient oriented x3 GENERAL APPEARANCE: cooperative HENMT: COMMON NORMALS: normocephalic and Normal external nose present HEAD & SCALP: normal to inspection and normocephalic NOSE: Normal external nose present Eye: GENERAL EYE: appearance normal, both eyes and all related structures Neck/C-Spine: COMMON NORMALS: full ROM Lymph: LYMPHATIC: no lymphadenopathy noted Chest: COMMONS NORMALS: normal inspection of the chest Resp: COMMON NORMALS: normal respiratory effort EFFORT & INSPECTION: Yes able to speak in complete sentences Cardio: COMMON NORMALS: regular rate and regular rhythm RATE: regular rate RHYTHM: regular rhythm GI: COMMON NORMALS: non-tender RECTAL EXAM: Yes normal sphincter tone, Yes heme negative stool, No hemorrhoids and Yes fecal impaction (Some hard stool was noted in the rectal vault, 3 grape size balls were removed and the rest of the stool was luly consistency. Hemoccult was negative. No blood was noted with rectal exam.) Back/Pelvis: COMMON NORMALS: thoracic and lumbar spine normal to inspection Extremity: COMMON NORMALS: normal to inspection Neuro: COMMON NORMALS: patient oriented x3 and moves all extremities Psych: COMMON NORMALS: mental status grossly normal and cooperative Skin: COMMON NORMALS: no rashes or lesions noted GENERAL SKIN EXAM: no rashes or lesions noted Course Vital Signs: Vital signs: Vital Signs Temperature 97.8 F 08/29/19 06:54 Pulse Rate 68 08/29/19 07:32 Respiratory Rate 18 08/29/19 07:32 Blood Pressure 137/64 08/29/19 07:32 Pulse Oximetry 96 08/29/19 07:32 MDM - Abdominal Pain MDM Narrative: Medical decision making narrative: Patient came in today for complaints of constipation and blood in stool. On exam patient appeared well. Abdomen soft and nontender. Bowel sounds were positive. Rectal exam noted normal sphincter control hard stool in the rectal vault Hemoccult was negative. Differential diagnosis includes GI bleed, obstipation, fecal impaction, diverticulitis. White count was elevated at 17.7, hemoglobin hematocrit was improved as compared to previous results. Creatinine was elevated but this appears to be patient's normal. Patient had a large bowel movement in the ER with some streaking of blood. Recommended that patient will follow with outpatient for colonoscopy. Nursing had noted some hematuria, review of patient's record noted that patient has had significant problems with urinary retention and hematuria. Patient did have a recent CT scan which showed no renal calculi and review of record noted a cystoscopy that noted no tumors or masses. Suspect urinary tract infection with hematuria. Will start patient on Cipro and Flagyl to cover for urinary tract infection and secondary proctitis from fecal impaction. Reviewed exam with patient with recommendations for follow-up. Lab Data: Labs: Lab Results 08/29/19 08/29/19 Range/Units 07:24 07:24 WBC 17.7 H (4.0-10.0) 10^3/ uL RBC 3.04 L (4.1-5.3) 10^6/u L Hgb 9.9 L (11.7-16.6) g/dL Hct 30.7 L (42.0-52.0) % MCV 101.0 H (80-94) fL MCH 32.6 (28.0-34.0) pg MCHC 32.2 (30.0-36.0) g/dL RDW 16.3 H (12.1-15.1) % Plt Count 327 (130-400) 10^3/c mm MPV 10.7 H (7.4-10.4) fL Neut % (Auto) 88.9 % Lymph % (Auto) 4.7 % [place] % (Auto) 4.5 % Eos % (Auto) 1.1 % Baso % (Auto) 0.3 % Neut # (Auto) 15.8 H (1.8-7.7) 10^3/u L Lymph # (Auto) 0.8 (0.8-4.8) 10^3/u L [place] # (Auto) 0.8 (0.2-0.9) 10^3/u L Eos # (Auto) 0.2 (0.0-0.8) 10^3/u L Baso # (Auto) 0.1 (0.0-0.1) 10^3/u L Nucleated RBC % (a uto) 0 % Nucleated RBCs # 0.0 /100WBC Sodium 137 (136-145) mmol/L Potassium 4.9 (3.5-5.1) mmol/L Chloride 101 (98-107) mmol/L Carbon Dioxide 25 (22-29) mmol/L Anion Gap 15.9 (5-19) BUN 29 H (8-23) mg/dL Creatinine 1.5 H (0.7-1.2) mg/dL Glucose 112 (65-115) mg/dL Calculated Osmolal ity 282 L (285-295) mOsm/k g Calcium 9.2 (8.5-10.5) mg/dL Total Bilirubin 0.2 (0.15-1.2) mg/dL AST 19 (0-40) U/L ALT 27 (0-41) U/L Alkaline Phosphata se 91 (40-130) IU/L Total Protein 6.3 L (6.6-8.7) g/dL Albumin 3.7 (3.5-5.2) g/dL Globulin 2.6 (1.3-4.6) g/dL Discharge Plan Discharge Patient Disposition: Home, Self-Care Clinical Impression: Constipation Qualifiers: Constipation type: unspecified constipation type Qualified Code(s): K59.00 - Constipation, unspecified Urinary tract infection with hematuria Qualifiers: Urinary tract infection type: acute cystitis Qualified Code(s): N30.01 - Acute cystitis with hematuria Condition: Stable Prescriptions: New bisacodyl 5 mg tablet 5 mg PO DAILY PRN (Reason: constipation) Qty: 30 RF: 0 Cipro 500 mg tablet 500 mg PO BID Qty: 14 RF: 0 metronidazole 500 mg tablet 500 mg PO BID 7 Days Qty: 14 RF: 0 No Action ciprofloxacin HCl [Cipro] 500 mg tablet 500 mg PO BID RF: 0 methenamine hippurate 1 gram tablet 1 gm PO BID Qty: 60 RF: 12 ipratropium-albuterol 0.5 mg-3 mg(2.5 mg base)/3 mL Solution For Nebulization See Rx Instructions .ROUTE .COMPLEX RF: 0 tamsulosin [Flomax] 0.4 mg Capsule 0.8 mg PO QPM RF: 0 carbamide peroxide 6.5 % Drops 3 drp otic (ear) BID RF: 0 docusate sodium [Colace] 100 mg Capsule 100 mg PO BID RF: 0 omeprazole 20 mg Capsule,Delayed Release(Dr/Ec) 20 mg PO BID RF: 0 furosemide [Lasix] 20 mg Tablet 20 mg PO DAILY PRN (Reason: Edema) RF: 0 fluoxetine [Prozac] 20 mg Capsule 60 mg PO DAILY RF: 0 Eucerin Cream 1 applic TOPICAL DAILY RF: 0 ipratropium-albuterol 20-100 mcg/actuation Mist 1 puff INHALATION QID MDD 6 PUFFS RF: 0 Multiple Vitamins Tablet See Rx Instructions .ROUTE .COMPLEX RF: 0 finasteride 5 mg tablet 5 mg PO DAILY RF: 0 Discharge Orders: Discharge Order (Routine); Ordered 08/29/19 Ordered By: Valentin Lainez Referrals: Janet Martinez, SENIOR WATER RESOURCES ENGINEER [Nurse Practitioner] - Discharge Diet: Usual diet Discharge Activity: Increase activity as tolerated Patient Instructions: Constipation (ED) Activity Restrictions/Additional Instructions: Drink plenty of fluids. Medications as directed. Take antibiotics twice a day for the next 7 days. Follow-up with primary care in 1 week. Return to the ER for high fevers or worsening symptoms. Coding Level of Care Code ED Rn Anesthesiology for Azam Fwd Exam Comprehensive
--- NOTE | 2019-08-29 07:01 | XR_ITS ---
WS: [id number] Abdomen series: PA CHEST AND 2 VIEWS OF THE ABDOMEN HISTORY: constipation COMPARISON: 11/24/2005 and 08/12/2019 Mild pulmonary hyperinflation. No pneumonia. Lungs are clear. Heart size is normal with mild ectasia aorta. Surgical clips are noted at the LEFT AC joint. Osteopenia. Marked fecal retention in the proximal and distal colon. There is increased air in the transverse col on and prior cholecystectomy. No free air or obstructive pattern. XR/XR acute abdomen series [id number] IMPRESSION: 1. Constipation and increased air in the colon. No obstruction. 2. No free air. 3. No pneumonia. 4. Prior cholecystectomy.
--- NOTE | 2019-08-29 07:20 | PC.NURSE ---
ED JUSTYNA Lainez performed a rectal exam and makenzie occult test which resulted negative
[2019-08-29 07:32] VITALS: BP 137/64; PULSE 68; RESP 18; O2SAT 96
[2019-08-29 07:32] LABS: Basophils # 0.1 10^3/uL (0.0-0.1); Basophils % 0.3 %; Eosinophils # 0.2 10^3/uL (0.0-0.8); Eosinophils % 1.1 %; Hematocrit 30.7 % (42.0-52.0); Hemoglobin 9.9 g/dL (11.7-16.6); Lymphocytes # 0.8 10^3/uL (0.8-4.8); Lymphocytes % 4.7 %; Mean Corpuscular HGB Conc 32.2 g/dL (30.0-36.0); Mean Corpuscular Hemoglobin 32.6 pg (28.0-34.0); Mean Platelet Volume 10.7 fL (7.4-10.4); Monocytes # 0.8 10^3/uL (0.2-0.9); Monocytes % 4.5 %; Neutrophils # 15.8 10^3/uL (1.8-7.7); Neutrophils % 88.9 %; Nucleated Red Blood Cells % 0 %; Platelet Count 327 10^3/cmm (130-400); Red Blood Count 3.04 10^6/uL (4.1-5.3); Red Cell Distribution Width 16.3 % (12.1-15.1); White Blood Count 17.7 10^3/uL (4.0-10.0)
[2019-08-29] MEDS: Fleet Enema 133 mL Enema PR (07:32)
[2019-08-29 07:44] LABS: Alanine Aminotransferase 27 U/L (0-41); Albumin Level 3.7 g/dL (3.5-5.2); Alkaline Phosphatase 91 IU/L (40-130); Anion Gap 15.9 (5-19); Aspartate Amino Transferase 19 U/L (0-40); Blood Urea Nitrogen 29 mg/dL (8-23); Calcium 9.2 mg/dL (8.5-10.5); Carbon Dioxide 25 mmol/L (22-29); Chloride 101 mmol/L (98-107); Globulin 2.6 g/dL (1.3-4.6); Glucose 112 mg/dL (65-115); Osmolality Calculated 282 mOsm/kg (285-295); Potassium 4.9 mmol/L (3.5-5.1); Sodium 137 mmol/L (136-145); Total Bilirubin 0.2 mg/dL (0.15-1.2); Total Protein 6.3 g/dL (6.6-8.7)
[2019-08-29 08:32] VITALS: BP 135/82; PULSE 69; RESP 18; O2SAT 98
[2019-08-29] MEDS: metroNIDAZOLE 500 MG Tablet PO (08:51)
[2019-08-29] MEDS: ciprofloxacin 500 mg Tablet PO (08:51)
[2019-08-29 09:16] VITALS: BP 146/74; PULSE 71; RESP 18; O2SAT 96
--- NOTE | 2019-08-29 09:18 | DCPLANNER ---
chronic manager was asked to schedule a follow up appointment for patient with [facility]. chronic manager called the clinic, spoke with Coni, a follow up appointment was scheduled for Sunday, September 01, 2019 at 3:[address] Bryant. chronic manager gave patient the appointment information.
[2019-08-29 09:32] LABS: Add Urine Culture? Yes; Add Urine Microscopic? YES; Bacteria Urine TRACE; Bilirubin Urine Neg (NEGATIVE); Blood Urine 3+ (Negative); Glucose Urine UA Norm (Normal); Ketones Urine Negative (Negative); Leukocyte Esterase Urine Negative (Negative); Nitrate Urine Negative (Negative); Protein Urine 3+ (Negative); RBC Urine >100 /hpf (0-2); Specific Gravity, Urine 1.015 (1.005-1.030); Squamous Epithelial Cell Urine RARE (0-5); Urine Appearance Bloody (CLEAR); Urine Color Red (Yellow); Urobilinogen Urine Norm (Negative)
--- NOTE | 2019-09-02 10:05 | DCPLANNER ---
Appointment scheduled for 09.01.19 with [facility], was cancelled.
== END 2019-08-29 09:49 | disposition home or self-care (01) ==
PROVIDERS: Emergency Provider Nurse Practitioner Family
DX: K59.00 Constipation, unspecified (principal); N30.01 Acute cystitis with hematuria; J44.9 Chronic obstructive pulmonary disease, unspecified; Z86.73 Personal history of transient ischemic attack (TIA), and cerebral infarction without residual deficits; Z87.440 Personal history of urinary (tract) infections; I10 Essential (primary) hypertension; F17.210 Nicotine dependence, cigarettes, uncomplicated
CPT/HCPCS: 12345; 36415; 74022; 80053; 81001; 85025; 87086; 99283

== ENCOUNTER 2019-09-30 12:05 | Inpatient (IN) | payer OTHER, MEDICARE, SELFPAY ==
[2019-09-30] VITALS (12 sets, daily range): BP systolic 88–137; BP diastolic 56–74; PULSE 59–71; RESP 16–20; TEMP 36.5–37.1; O2SAT 94–97; BMI 17.6
--- NOTE | 2019-09-30 12:13 | ECG_ITS ---
[facility] Test Date: 2019-09-30 Pat Name: Michael Herrera Department: Room: Gender: Male Block Feeder: : 1945 Requested By: Evin Arias Order Number: [id number] Vadim MD: Josesito Hernández M.D. Measurements Intervals [place] Rate: 60 P: 78 WA: 189 QRS: -5 QRSD: 102 T: 79 QT: 401 QTc: 403 Interpretive Statements SINUS RHYTHM Compared to ECG 08/12/2019 16:25:17 Sinus arrhythmia no longer present Electronically Signed On 09-30-2019 16:55:22 CDT by Josesito Hernández M.D. [id number]
--- NOTE | 2019-09-30 12:13 | CT_ITS ---
WS: [id number] CT HEAD NONCONTRAST HISTORY: Altered mental status. TECHNIQUE: Contiguous axial imaging performed through the brain in 2.5 mm imaging. Bone and soft tiss ue windows. Sagittal and coronal reformats reviewed. All CT scans at [facility] use at ast one of these dose optimization techniques: automated exposure control; mA and/or kV adjustment pe r patient size (includes targeted exams where dose is matched to clinical indication); or iterative r econstruction. DLP: 720.06 mGy.cm COMPARISON: 08/16/2013 No acute intracranial hemorrhage, midline shift or mass effect. Mild bilateral and symmetric atrophy. Prior lacunar infarct in the RIGHT caudate head. Additional lac unar infarct in the LEFT basal ganglia. Ventricles: Normal size with no hydrocephalus. Moderate atherosclerosis in the intracranial carotid arteries. There is mild fullness in the LEFT cav ernous sinus but similar to the prior study and probably due to an ectatic partially calcified ICA. Paranasal sinuses: As visualized are clear. Mastoid air cells: Well pneumatized. Calvarium and scalp: Skull is intact with no soft tissue edema or swelling. CT/CT head wo con* [id number] IMPRESSION: 1. No acute intracranial hemorrhage or edema. 2. RIGHT caudate head and LEFT basal ganglia lacunar infarcts. No acute intrac ranial edema.
--- NOTE | 2019-09-30 12:13 | XRR_ITS ---
PROCEDURE INFORMATION: Exam: XR Chest, 1 View Exam date and time: 09/30/2019 12:54 PM Age: 74 years old Clinical indication: Chest pain; Type not specified; Patient HX: C/O AMS; Additional info: AMS. Previous films 08/29/19and 08/12/19 TECHNIQUE: Imaging protocol: XR of the chest Views: 1 view. COMPARISON: CR XR chest 1V portable [id number] 08/12/2019 5:12 PM FINDINGS: Lungs: Unremarkable. No consolidation. Pleural space: Unremarkable. No pleural effusion. No pneumothorax. Heart/Mediastinum: Unremarkable. No cardiomegaly. Bones/joints: Unremarkable. XR/XR chest 1V portable [id number] IMPRESSION: No acute findings.
--- NOTE | 2019-09-30 12:19 | W.ED.NAVMDI ---
HPI - Nausea/Vomiting/Diarrhea General: Chief complaint: Nausea/Vomiting/Diarrhea Stated complaint: DIARRHEA Time Seen by Provider: 09/30/19 12:07 Source: patient and EMS Mode of arrival: EMS Limitations: no limitations History of Present Illness: HPI Narrative: 74-year-old male who who home health sent here for some altered mental status on diarrhea. Per EMS patient was able answer all her questions appropriately in the ambulance. Patient here is able to tell me his name and where he lives he does not know the year and is confused to some questioning. Is. He states he had diarrhea yesterday that is improved today. Associated nausea: No Associated symtoms: Denies chest pain, dysuria, headache(s) or nausea Review of Systems Const: Denies: fever(s), chills, body aches or change in appetite Eyes: Denies: blurry vision or eye discomfort ENMT: Denies: throat pain or dental pain Card: Denies: chest pain Resp: Denies: dyspnea GI: Reports: diarrhea; Denies: abdominal pain, nausea or vomiting : Denies: dysuria Musc: Denies: neck pain or back pain Skin/Breast: Denies: rash Neuro: Reports: confusion; Denies: headache(s) Psych: Denies: depression Tae/Lymph: Denies: easy bruising All/Imm: Denies: urticaria PFSH ED PFSH: Medical History Acute urinary retention -has had issues with urinary retention in the past including during last admission in 03/2019 -had initially responded well to [facility] and has been f/u with Dr. Donohue -noted evidence of significant bladder distention, mild R and moderate L hydronephrosis which is a change in comparison to prior CT A/P done in 03/2019. Findings reviewed with Dr. Donohue who agrees with bladder decompression with Lowery catheter placement and treatment of infection -continue to monitor urine output -on finasteride and tamsulosin Ascending aortic aneurysm Bradycardia Chronic back pain Chronic neck pain Compression fracture of L1 lumbar vertebra COPD (chronic obstructive pulmonary disease) -not oxygen dependent at baseline -no change in sputum production, increased SOB, no exacerbation currently -CXR per my review has noted hyperinflation but otherwise unremarkable -Neb treatments as needed -continue to monitor respiratory status, supplemental oxygen as needed CVA (cerebral vascular accident) Cystitis with hematuria -Status post CBI, follow with Dr. Donohue as outpatient GERD (gastroesophageal reflux disease) Gross hematuria HTN (hypertension) -currently normotensive thoough intermittently low/low-normal BP; continue to monitor vital signs Macrocytic anemia -has known chronic macrocytic anemia; baseline Hg appears to be 10-11 -continue to monitor H/H -no active bleeding -FOBT ordered Multilevel degenerative disc disease Spinal stenosis, site unspecified Urinary retention Surgical History H/O laminectomy L5-S1 HEMILANIECTOMIES H/O shoulder surgery H/O spinal fusion C5-C6 History of cystoscopy in 01/2019 -chronic inflammatory changes, bladder diverticuli Hx laparoscopic cholecystectomy S/P ureteral stent placement Family History Father CAD (coronary artery disease) Social History Smoking and tobacco status: current every day smoker cigarettes Packs smoked per day: 1 Alcohol intake: never Lives independently: Yes Marital status: Current occupational status: disabled Current gender identity: Male Physical Exam Const: COMMON NORMALS: no acute distress, healthy appearing and alert ORIENTATION/CONSCIOUSNESS: Yes oriented to person and Yes oriented to place HENMT: COMMON NORMALS: normocephalic and atraumatic HEAD & SCALP: normocephalic and atraumatic Eye: COMMON NORMALS: Equal, round and reactive pupils present and EOMs intact bilaterally PUPIL: Yes Equal, round and reactive pupils present Neck/C-Spine: COMMON NORMALS: full ROM and supple Chest: COMMONS NORMALS: normal inspection of the chest and normal palpation of entire chest wall Resp: COMMON NORMALS: normal respiratory effort, No retractions, No use of accessory muscles and clear to auscultation bilaterally AUSCULTATION: clear to auscultation bilaterally Cardio: COMMON NORMALS: regular rate, regular rhythm and No murmurs present (Cardio) RATE: regular rate RHYTHM: regular rhythm GI: COMMON NORMALS: Normal to inspection, nondistended, normoactive bowel sounds present, Soft to palpation, non-tender and no masses PALPATION: Yes Soft to palpation Extremity: COMMON NORMALS: normal to inspection and full ROM Neuro: COMMON NORMALS: moves all extremities and no focal motor deficits SENSORIUM/ORIENTATION: Yes alert, Yes oriented to person and Yes oriented to place Psych: APPEARANCE: Yes disheveled THOUGHT PROCESS: confused Skin: COMMON NORMALS: no rashes or lesions noted and no wounds GENERAL SKIN EXAM: no rashes or lesions noted Course Vital Signs: Vital signs: Vital Signs Temperature 98.7 F 09/30/19 12:07 Pulse Rate 61 09/30/19 13:12 Respiratory Rate 17 09/30/19 13:12 Blood Pressure 110/61 09/30/19 13:12 Pulse Oximetry 95 09/30/19 13:12 MDM - Nausea/Vomiting/Diarrhea MDM Narrative: Medical decision making narrative: Patient presents here with confusion here does have a urinary tract infection likely causing his confusion. Patient appears dehydrated as well. Patient given IV fluids along with Rocephin. Patient's head CT here is normal. I spoke to hospitalist who will admit. Lab Data: Labs: Lab Results 09/30/19 09/30/19 09/30/19 Range/Units 12:19 12:19 12:19 WBC 14.4 H (4.0-10.0) 10^3/ uL RBC 3.10 L (4.1-5.3) 10^6/u L Hgb 10.0 L (11.7-16.6) g/dL Hct 31.3 L (42.0-52.0) % MCV 101.0 H (80-94) fL MCH 32.3 (28.0-34.0) pg MCHC 31.9 (30.0-36.0) g/dL RDW 15.6 H (12.1-15.1) % Plt Count 251 (130-400) 10^3/c mm MPV 10.6 H (7.4-10.4) fL Neut % (Auto) 88.3 % Lymph % (Auto) 4.7 % [place] % (Auto) 6.5 % Eos % (Auto) 0.0 % Baso % (Auto) 0.1 % Neut # (Auto) 12.7 H (1.8-7.7) 10^3/u L Lymph # (Auto) 0.7 L (0.8-4.8) 10^3/u L [place] # (Auto) 0.9 (0.2-0.9) 10^3/u L Eos # (Auto) 0.0 (0.0-0.8) 10^3/u L Baso # (Auto) 0.0 (0.0-0.1) 10^3/u L Nucleated RBC % (a uto) 0 % Nucleated RBCs # 0.0 /100WBC Sodium 138 (136-145) mmol/L Potassium 4.3 (3.5-5.1) mmol/L Chloride 106 (98-107) mmol/L Carbon Dioxide 22 (22-29) mmol/L Anion Gap 14.3 (5-19) BUN 23 (8-23) mg/dL Creatinine 1.7 H (0.7-1.2) mg/dL Glucose 133 H (65-115) mg/dL Calculated Osmolal ity 285 (285-295) mOsm/k g Lactate 1.1 (0.5-2.2) mmol/L Calcium 9.1 (8.5-10.5) mg/dL Total Bilirubin 0.4 (0.15-1.2) mg/dL AST 44 H (0-40) U/L ALT 41 (0-41) U/L Alkaline Phosphata se 98 (40-130) IU/L Total Protein 6.0 L (6.6-8.7) g/dL Albumin 3.5 (3.5-5.2) g/dL Globulin 2.5 (1.3-4.6) g/dL Urine Color (Yellow) Urine Appearance (CLEAR) Urine pH (5-7) Ur Specific Gravit y (1.005-1.030) Urine Protein (Negative) Urine Glucose (UA) (Normal) Urine Ketones (Negative) Urine Blood (Negative) Urine Nitrate (Negative) Urine Bilirubin (NEGATIVE) Urine Urobilinogen (Negative) mg/dL Ur Leukocyte Grace ase (Negative) Urine RBC (0-2) /hpf Urine WBC (0-5) /hpf Ur Squamous Epith Cells (0-5) Amorphous Sediment Urine Bacteria (NONE) 09/30/19 Range/Units 13:24 WBC (4.0-10.0) 10^3/ uL RBC (4.1-5.3) 10^6/u L Hgb (11.7-16.6) g/dL Hct (42.0-52.0) % MCV (80-94) fL MCH (28.0-34.0) pg MCHC (30.0-36.0) g/dL RDW (12.1-15.1) % Plt Count (130-400) 10^3/c mm MPV (7.4-10.4) fL Neut % (Auto) % Lymph % (Auto) % [place] % (Auto) % Eos % (Auto) % Baso % (Auto) % Neut # (Auto) (1.8-7.7) 10^3/u L Lymph # (Auto) (0.8-4.8) 10^3/u L [place] # (Auto) (0.2-0.9) 10^3/u L Eos # (Auto) (0.0-0.8) 10^3/u L Baso # (Auto) (0.0-0.1) 10^3/u L Nucleated RBC % (a uto) % Nucleated RBCs # /100WBC Sodium (136-145) mmol/L Potassium (3.5-5.1) mmol/L Chloride (98-107) mmol/L Carbon Dioxide (22-29) mmol/L Anion Gap (5-19) BUN (8-23) mg/dL Creatinine (0.7-1.2) mg/dL Glucose (65-115) mg/dL Calculated Osmolal ity (285-295) mOsm/k g Lactate (0.5-2.2) mmol/L Calcium (8.5-10.5) mg/dL Total Bilirubin (0.15-1.2) mg/dL AST (0-40) U/L ALT (0-41) U/L Alkaline Phosphata se (40-130) IU/L Total Protein (6.6-8.7) g/dL Albumin (3.5-5.2) g/dL Globulin (1.3-4.6) g/dL Urine Color Yellow (Yellow) Urine Appearance Cloudy (CLEAR) Urine pH 5.0 (5-7) Ur Specific Gravit y 1.010 (1.005-1.030) Urine Protein 3+ H (Negative) Urine Glucose (UA) Norm (Normal) Urine Ketones Negative (Negative) Urine Blood 3+ H (Negative) Urine Nitrate Negative (Negative) Urine Bilirubin Neg (NEGATIVE) Urine Urobilinogen Norm (Negative) mg/dL Ur Leukocyte Grace ase 2+ H (Negative) Urine RBC 40-50 H (0-2) /hpf Urine WBC >100 H (0-5) /hpf Ur Squamous Epith Cells 0-4 H (0-5) Amorphous Sediment Not Reportable Urine Bacteria 1+ H (NONE) Imaging Data^: CT Head: Radiologist's impression: [address] [address] [address] Scan Report Signed Patient: Michael Herrera JR Unit #: [id number] : 1945 Age/Sex: 74 / M ADM Date: 09/30/19 Loc: ER Room/Bed: Attending Dr: Ordering Provider/Ordering MD: Evin Arias MD Date of Service: 09/30/19 Procedure(s): CT head wo con* [id number] Accession Number(s): [id number] Report Number: [id number] WS: [id number] CT HEAD NONCONTRAST HISTORY: Altered mental status. TECHNIQUE: Contiguous axial imaging performed through the brain in 2.5 mm imaging. Bone and soft tissue windows. Sagittal and coronal reformats reviewed. All CT scans at [facility] use at least one of these dose optimization techniques: automated exposure control; mA and/or kV adjustment per patient size (includes targeted exams where dose is matched to clinical indication); or iterative reconstruction. DLP: 720.06 mGy.cm COMPARISON: 08/16/2013 No acute intracranial hemorrhage, midline shift or mass effect. Mild bilateral and symmetric atrophy. Prior lacunar infarct in the RIGHT caudate head. Additional lacunar infarct in the LEFT basal ganglia. Ventricles: Normal size with no hydrocephalus. Moderate atherosclerosis in the intracranial carotid arteries. There is mild fullness in the LEFT cavernous sinus but similar to the prior study and probably due to an ectatic partially calcified ICA. Paranasal sinuses: As visualized are clear. Mastoid air cells: Well pneumatized. Calvarium and scalp: Skull is intact with no soft tissue edema or swelling. CT/CT head wo con* [id number] IMPRESSION: 1. No acute intracranial hemorrhage or edema. 2. RIGHT caudate head and LEFT basal ganglia lacunar infarcts. No acute intracranial edema. EKG Data^: EKG 1: Attestation: I personally reviewed and interpreted this EKG as follows: EKG interpretation date: 09/30/19 EKG interpretation time: 12:47 Interpretation: nsr hr [address] or t wave abnormalities qrs 102 qtc 402 Discharge Plan Discharge Patient Disposition: Admitted As Inpatient Clinical Impression: Cystitis Altered mental status Qualifiers: Altered mental status type: unspecified Qualified Code(s): R41.82 - Altered mental status, unspecified Condition: Stable Referrals: [facility] [Primary Care Provider] - Coding Level of Care Code ED Biofuels Engineering Manager for Chg Fwd Exam Comprehensive
[2019-09-30 12:26] LABS: Basophils % 0.1 %; Hematocrit 31.3 % (42.0-52.0); Lymphocytes # 0.7 10^3/uL (0.8-4.8); Lymphocytes % 4.7 %; Mean Corpuscular HGB Conc 31.9 g/dL (30.0-36.0); Mean Corpuscular Hemoglobin 32.3 pg (28.0-34.0); Mean Platelet Volume 10.6 fL (7.4-10.4); Monocytes # 0.9 10^3/uL (0.2-0.9); Monocytes % 6.5 %; Neutrophils # 12.7 10^3/uL (1.8-7.7); Neutrophils % 88.3 %; Nucleated Red Blood Cells % 0 %; Platelet Count 251 10^3/cmm (130-400); Red Cell Distribution Width 15.6 % (12.1-15.1); White Blood Count 14.4 10^3/uL (4.0-10.0)
[2019-09-30] MEDS: sodium chloride 0.9% 1,000 ML 999 ML IV (12:36)
[2019-09-30 12:40] LABS: Lactate (Lactic Acid level) 1.1 mmol/L (0.5-2.2)
[2019-09-30 12:41] LABS: Alanine Aminotransferase 41 U/L (0-41); Albumin Level 3.5 g/dL (3.5-5.2); Alkaline Phosphatase 98 IU/L (40-130); Anion Gap 14.3 (5-19); Aspartate Amino Transferase 44 U/L (0-40); Blood Urea Nitrogen 23 mg/dL (8-23); Calcium 9.1 mg/dL (8.5-10.5); Carbon Dioxide 22 mmol/L (22-29); Chloride 106 mmol/L (98-107); Globulin 2.5 g/dL (1.3-4.6); Glucose 133 mg/dL (65-115); Osmolality Calculated 285 mOsm/kg (285-295); Potassium 4.3 mmol/L (3.5-5.1); Sodium 138 mmol/L (136-145); Total Bilirubin 0.4 mg/dL (0.15-1.2)
[2019-09-30 13:54] LABS: Add Urine Microscopic? YES; Bilirubin Urine Neg (NEGATIVE); Blood Urine 3+ (Negative); Glucose Urine UA Norm (Normal); Ketones Urine Negative (Negative); Leukocyte Esterase Urine 2+ (Negative); Nitrate Urine Negative (Negative); Protein Urine 3+ (Negative); Urine Appearance Cloudy (CLEAR); Urine Color Yellow (Yellow); Urobilinogen Urine Norm (Negative)
[2019-09-30 14:05] LABS: Add Urine Culture? Yes; Bacteria Urine 1+; RBC Urine 40-50 /hpf (0-2); Squamous Epithelial Cell Urine 0-4 (0-5); WBC Urine >100 /hpf (0-5)
[2019-09-30] MEDS: cefTRIAXone 1,000 MG in sodium chloride 0.9% (plus) 50 ML 100 MG IV (14:49)
--- NOTE | 2019-09-30 16:08 | PM.HP ---
Providers/Chief Complaint Primary Care Provider: [facility] Chief Complaint: DIARRHEA History of Present Illness Michael Herrera JR is a 74 year old male PMHx of HTN, COPD, Chronic smoker, Chronic back pain with radiculopathy, GERD, who was sent in today by his home health nurse after she found N/V. Patient states he has been having diarrhea for last 3 days. Diarrhea is usually watery, not foul-smelling the last episode today morning. Denies of having any nausea, abdominal pain. He has continued to self catheterize. He denies any dysuria or changes in the color or smell of urine or hematuria. He states he has been coughing but that is his baseline and has not increased. Denies of flulike symptoms, fevers, night sweats, exposure to COVID-19 patient's other than when he was last admitted to the hospital. At baseline he has an in-home service home health service who comes once every 6 weeks. He is able to provide appropriate history with collateral information obtained from review of medical records. He lives alone with supplemental support provided through home health services. He typically ambulates with a walker and cane but over time has had recurrent falls and progressive difficulty with ambulation with arrangements made through the [facility] for a wheelchair. He is generally quite weak and states that when attempting to ambulate he typically feels his knees give out on him. He denies of having any hematemesis, melena, bleeding from anywhere else, dizziness, weakness in his arms, urinary or bladder incontinence, seizure-like activity, recent travels, possible exposure to tick bites. In the ER blood work done shows a white count of 14.4, hemoglobin of 10, neutrophilia of 12.7%, creatinine of 1.7, AST of 44, urinalysis +2+ for leuk esterase and more than 100 WBCs. Review of Systems Const: Denies: fever(s), chills, body aches, change in appetite, malaise, night sweats, diaphoresis, change in sleep pattern, daytime sleepiness or snoring Eyes: Denies: change in vision, blurry vision, photophobia, eye discomfort or eye discharge ENMT: Denies: throat pain, enlarged tonsils, hoarseness, mouth pain, oral sores, dry mouth, tinnitus, nasal congestion or post nasal drip Card: Denies: chest pain, palpitations, irregular heart rhythm, edema, swelling of feet/ankles, lightheadedness, syncope, pre-syncope, dyspnea on exertion, orthopnea, leg pain with exertion or acrocyanosis Resp: Denies: dyspnea, productive cough, non-productive cough, wheezing, stridor, pain on inspiration, change in phlegm color, hemoptysis or chest congestion GI: Reports: diarrhea and GI cramping; Denies: abdominal pain, nausea, vomiting, hematemesis, coffee ground emesis, dysphagia, heartburn, constipation, bloating, change in bowel habits, pain on defecation, hematochezia or melena : Reports: difficulty urinating, urinary dribbling and difficulty starting urination; Denies: flank pain, dysuria, urinary frequency, urinary urgency, urinary hesitancy, change in urine stream, nocturia or hematuria Musc: Denies: neck pain, back pain, extremity pain, joint pain, joint swelling, joint redness, joint stiffness or limited range of motion Neuro: Denies: headache(s), numbness in extremities, weakness in extremities, sensory changes, lack of coordination, difficulty walking, frequent falls, dizziness, vertigo, confusion, Slurred speech present, difficulty communicating thoughts or seizure-like activity Psych: Denies: anxiety, depression, mood swings, panic attacks, hopelessness or irritability Endo: Denies: polyuria, polydipsia, tired all the time, cold intolerance, excessive sweating, flushing or heat intolerance Tae/Lymph: Denies: easy bruising or easy bleeding All/Imm: Denies: tongue swelling, facial swelling or acute wheezing Medications/Allergies Home Medications Medication Instructions Recorded Confirmed Last Taken Type Eucerin 1 applic TOPICAL DAILY PRN 03/26/19 09/30/19 08/11/19 History fluoxetine [Prozac] 60 mg PO DAILY 03/26/19 09/30/19 09/30/19 History ipratropium-albuterol 1 puff INHALATION QID MDD 6 PUFFS 03/26/19 09/30/19 08/11/19 History ipratropium-albuterol See Rx Instructions .ROUTE .COMPLEX 03/26/19 09/30/19 08/11/19 History omeprazole 20 mg PO BID 03/26/19 09/30/19 09/30/19 History tamsulosin [Flomax] 0.8 mg PO QPM 03/26/19 09/30/19 09/29/19 History methenamine hippurate 1 gram tablet 1 gm PO BID #60 tab 08/28/19 09/30/19 09/30/19 Rx bisacodyl 5 mg PO DAILY PRN #30 tab 08/29/19 09/30/19 Unknown Rx acetaminophen 1,000 mg PO QID PRN 09/30/19 09/30/19 Unknown History ascorbic acid (vitamin C) [Vitamin 1,000 mg PO BID 09/30/19 09/30/19 Unknown History C] food supplemt, lactose-reduced 1 ea PO BID 09/30/19 09/30/19 Unknown History [Ensure Plus] guaifenesin 400 mg PO TID PRN 09/30/19 09/30/19 09/30/19 History pregabalin [Lyrica] 100 mg PO BEDTIME 09/30/19 09/30/19 09/29/19 History sennosides-docusate sodium 2 tab PO BID PRN 09/30/19 09/30/19 Unknown History [Senna-S] Allergies Allergy/AdvReac Type Severity Reaction Status Date / Time nicotine Allergy Mild SKIN Verified 05/12/19 12:04 REACTION hydrocodone Allergy Unknown Verified 09/30/19 12:16 propoxyphene [From Darvon] Allergy Unknown Verified 05/12/19 12:04 PFSH Acute PFSH: Medical History Acute urinary retention -has had issues with urinary retention in the past including during last admission in 03/2019 -had initially responded well to [facility] and has been f/u with Dr. Donohue -noted evidence of significant bladder distention, mild R and moderate L hydronephrosis which is a change in comparison to prior CT A/P done in 03/2019. Findings reviewed with Dr. Donohue who agrees with bladder decompression with Lowery catheter placement and treatment of infection -continue to monitor urine output -on finasteride and tamsulosin Ascending aortic aneurysm Bradycardia Chronic back pain Chronic neck pain Compression fracture of L1 lumbar vertebra COPD (chronic obstructive pulmonary disease) -not oxygen dependent at baseline -no change in sputum production, increased SOB, no exacerbation currently -CXR per my review has noted hyperinflation but otherwise unremarkable -Neb treatments as needed -continue to monitor respiratory status, supplemental oxygen as needed CVA (cerebral vascular accident) Cystitis with hematuria -Status post CBI, follow with Dr. Donohue as outpatient GERD (gastroesophageal reflux disease) Gross hematuria HTN (hypertension) -currently normotensive thoough intermittently low/low-normal BP; continue to monitor vital signs Macrocytic anemia -has known chronic macrocytic anemia; baseline Hg appears to be 10-11 -continue to monitor H/H -no active bleeding -FOBT ordered Multilevel degenerative disc disease Spinal stenosis, site unspecified Urinary retention Surgical History H/O laminectomy L5-S1 HEMILANIECTOMIES H/O shoulder surgery H/O spinal fusion C5-C6 History of cystoscopy in 01/2019 -chronic inflammatory changes, bladder diverticuli Hx laparoscopic cholecystectomy S/P ureteral stent placement Family History Father CAD (coronary artery disease) Social History Smoking and tobacco status: current every day smoker cigarettes Packs smoked per day: 1 Alcohol intake: never Lives independently: Yes Marital status: Current occupational status: disabled Current gender identity: Male Vitals/I&O/Wt Last Vital Signs Temp 98.7 F 09/30/19 16:01 Pulse 59 L 09/30/19 16:01 Resp 18 09/30/19 16:01 BP 118/63 09/30/19 16:01 Pulse Ox 97 09/30/19 16:01 09/30/19 09/30/19 09/30/19 06:59 14:59 22:59 Intake Total 1000 / 1000 50 / 1050 Balance 1000 / 1000 50 / 1050 Weight last 48 hrs Weight 55.792 kg Physical Exam Narrative: EXAM NARRATIVE: General: No acute distress, AO x3, emaciated, dehydrated HEENT: PERRLA, pupils bilaterally equal and reactive Chest: Normal vesicular breath sounds, no added sounds, equal good air entry bilaterally CVS: S1-S2 regular, no murmurs, no tachycardia, no gallops, no rubs Abdomen: Soft, nontender, no organomegaly, bowel sounds present Neuro: No focal deficits, no facial deformity, AO x3, power 5/5 in all limbs Data : 09/30/19 12:19 09/30/19 12:19 A&P Assessment and plan (1) Diarrhea: Status: Acute (2) Complicated UTI (urinary tract infection): Status: Acute (3) Intermittent self-catheterization of bladder: Status: Acute (4) TYSON (acute kidney injury): Status: Acute (5) Falls frequently: Status: Acute (6) HTN (hypertension): Qualifiers: Hypertension type: essential hypertension Qualified Code(s): I10 - Essential (primary) hypertension (7) COPD (chronic obstructive pulmonary disease): Status: Inactive Qualifiers: COPD type: unspecified COPD Qualified Code(s): J44.9 - Chronic obstructive pulmonary disease, unspecified (8) Lumbar radiculopathy: Status: Acute (9) Severe protein-energy malnutrition: Status: Acute (10) Macrocytic anemia: Additional A&P Information Frequent falls/weakness: Due to baseline severe protein energy malnutrition along with further dehydration from recurrent diarrhea for last 3 days. Urine studies suggestive of mild UTI. Patient has chronic cystitis so cannot go with dysuric symptoms. Not in sepsis. IV hydration with normal saline 75 cc/h. As per last urine culture we will start patient on ceftriaxone once daily. Blood culture, urine culture, procalcitonin, TSH, iron panel, lipid panel, pro albumin. Will de-escalate antibiotics as per the culture results. Check stool studies to rule out C. difficile. Patient is not sure when he was last on antibiotics. Continue home dose of methenamine hippurate. PT/OT evaluation. Fall precautions. TYSON: Because of dehydration. Baseline creatinine of 1.3. 1.7 today. IV hydration as above. No signs of metabolic acidosis or electrode abnormality. Continue to monitor BMP daily. COPD: Keep saturation over 90%. Budesonide twice daily, DuoNeb's every 6 hours. Start patient on Flonase, guaifenesin. Severe protein energy malnutrition: Regular diet with Ensure. We will monitor for refeeding syndrome. Hypertension:Not on any anti hypertensives. Goal BP 140/90 mmhg Anemia: At baseline. Check iron panel, ferritin. Full code. Lovenox 30 for DVT prophylaxis Regular diet. Attestations Medical Necessity Statement*: More than 2 midnights for frequent falls, severe dehydration, TYSON diarrhea, UTI Time Spent in Patient Care: Greater than 35 minutes (>than 50% of time spent in counselling and/or direct pt care on unit). 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
--- NOTE | 2019-09-30 16:16 | CTR_ITS ---
PROCEDURE INFORMATION: Exam: CT Abdomen And Pelvis Without Contrast Exam date and time: 09/30/2019 4:19 PM Age: 74 years old Clinical indication: Condition or disease; Other: Obstructive uropathy; Prior surgery; Surgery type: Gb; Additional info: R/O pyelo, obstructive uropathy TECHNIQUE: Imaging protocol: Computed tomography of the abdomen and pelvis without contrast. Radiation optimization: All CT scans at this facility use at least one of these dose optimization techniques: automated exposure control; mA and/or kV adjustment per patient size (includes targeted exams where dose is matched to clinical indication); or iterative reconstruction. COMPARISON: CT abdomen pelvis w con* [id number] 08/12/2019 5:21 PM RADIATION DOSE METRICS: Total DLP (mGy-cm): 511.19 FINDINGS: Lungs: Limited assessment lung bases fails to reveal evidence of active cardiopulmonary process. Liver: Unremarkable. No mass. Gallbladder and bile ducts: Status post cholecystectomy. Pancreas: Unremarkable. No ductal dilation. Spleen: Unremarkable. No splenomegaly. Adrenals: Unremarkable. No mass. Kidneys and ureters: Again note of bilateral hydronephrosis of moderate severity in the left and milder severity right. Similar findings to the study of 08/12/2019. Bilateral ureterectasis to the urinary bladder with evidence of ectopic ureter vesicle orifices. Suspected bilateral ureterovesical reflux. Stable large simple left renal cortical cyst at the superior pole. No follow-up recommended. Stable simple right renal cortical cyst. No follow-up recommended. Bilateral perinephric stranding. This is a nonspecific finding. Stomach and bowel: Constipation. Nonobstructive bowel pattern. No visible evidence of significant adynamic or reactive ileus. Appendix: No evidence of appendicitis. Intraperitoneal space: Unremarkable. No free air. No significant fluid collection. Vasculature: The abdominal aorta is nonaneurysmal. Moderate arterial sclerotic disease. Lymph nodes: Unremarkable. No enlarged lymph nodes. Bladder: Focal bladder wall thickening dome and right lateral margin of the urinary bladder measuring 70 mm by a depth of 17 mm x 35 mm. Concern for bladder carcinoma. Asymmetrical bladder wall thickening. No visible bladder stone. Reproductive: Prostate hypertrophy. Bones/joints: Old superior endplate deformity L1. Advanced degenerative disc disease with vacuum disc phenomenon L4/L5. Facet arthrosis. Mild scoliotic curvature. Age related findings. Soft tissues: Unremarkable for age. Other findings: Motion artifact. CT/CT abdomen pelvis wo con [id number] IMPRESSION: 1. Interval development of focal asymmetrical bladder wall thickening dome and right lateral margin urinary bladder. Concern for bladder carcinoma. 2. Bilateral hydronephrosis again noted. Suspect bilateral ureterovesical reflux. 3. Constipation. Radiation Dose CTDIVOL = (mGy): DLP = 511.19 (mGy-cm)
[2019-09-30 16:52] LABS: Procalcitonin 1.19 ng/mL (0-0.5)
[2019-09-30 16:53] LABS: Thyroid Stimulating Hormone 0.85 uIU/mL (0.27-4.20)
[2019-09-30 17:04] LABS: Iron 10 ug/dL (59-158); Percent Saturation 4.8 % (20-50); Total Iron Binding Capacity 207 mcg/dl; Unsaturated Iron Binding 197 ug/dL (112-347)
[2019-09-30] MEDS: fluticasone nasal spray 16gm Btl 2 SPRAY NASAL (18:05)
[2019-09-30] MEDS: tamsulosin 0.4 mg Capsule 0.8 MG PO (18:06)
[2019-09-30] MEDS: guaiFENesin 600 mg Tablet PO (18:06)
[2019-09-30] MEDS: enoxaparin 30 mg/0.3 mL Syringe SUBCUT (18:07)
[2019-09-30] MEDS: ascorbic acid 500 mg Tablet 1000 MG PO (18:07)
[2019-09-30] MEDS: sodium chloride 0.9% 1,000 ML 75 ML IV (18:08)
[2019-09-30] MEDS: famotidine 20 mg/2 mL INJ IVP (18:08)
[2019-09-30] MEDS: budesonide 0.5 mg/2 mL Neb INHALATION (20:16)
[2019-09-30] MEDS: ipratropium-albuterol 3 mL Neb INHALATION (20:16)
[2019-09-30] MEDS: pregabalin 100 mg Capsule PO (21:19)
[2019-10-01] VITALS (16 sets, daily range): BP systolic 106–140; BP diastolic 56–74; PULSE 68–140; RESP 16–24; TEMP 36.8–38.1; O2SAT 92–99; BMI 17.6
[2019-10-01] MEDS: cefTRIAXone 1,000 MG in sodium chloride 0.9% (plus) 50 ML 100 MG IV ×2 (01:41→14:06)
[2019-10-01] MEDS: ipratropium-albuterol 3 mL Neb INHALATION ×4 (02:13→20:39)
[2019-10-01 05:24] LABS: Basophils % 0.3 %; Eosinophils # 0.1 10^3/uL (0.0-0.8); Eosinophils % 0.6 %; Hematocrit 29.4 % (42.0-52.0); Hemoglobin 9.4 g/dL (11.7-16.6); Lymphocytes # 1.2 10^3/uL (0.8-4.8); Lymphocytes % 11.4 %; Mean Corpuscular Hemoglobin 32.9 pg (28.0-34.0); Mean Corpuscular Volume 102.8 fL (80-94); Mean Platelet Volume 11.2 fL (7.4-10.4); Monocytes # 1.2 10^3/uL (0.2-0.9); Monocytes % 11.8 %; Neutrophils # 7.8 10^3/uL (1.8-7.7); Neutrophils % 75.5 %; Nucleated Red Blood Cells % 0 %; Platelet Count 231 10^3/cmm (130-400); Red Blood Count 2.86 10^6/uL (4.1-5.3); Red Cell Distribution Width 15.6 % (12.1-15.1); White Blood Count 10.4 10^3/uL (4.0-10.0)
[2019-10-01] MEDS: famotidine 20 mg/2 mL INJ IVP ×2 (05:50→18:23)
[2019-10-01 05:52] LABS: Alanine Aminotransferase 36 U/L (0-41); Alkaline Phosphatase 90 IU/L (40-130); Anion Gap 12.8 (5-19); Aspartate Amino Transferase 30 U/L (0-40); Blood Urea Nitrogen 20 mg/dL (8-23); Calcium 8.8 mg/dL (8.5-10.5); Carbon Dioxide 21 mmol/L (22-29); Chloride 112 mmol/L (98-107); Globulin 2.8 g/dL (1.3-4.6); Glucose 91 mg/dL (65-115); Osmolality Calculated 290 mOsm/kg (285-295); Potassium 3.8 mmol/L (3.5-5.1); Sodium 142 mmol/L (136-145); Total Bilirubin 0.3 mg/dL (0.15-1.2); Total Protein 5.8 g/dL (6.6-8.7)
[2019-10-01 06:03] LABS: Chol HDL Ratio 2.65 mg/dL (1.0-5.00); Cholesterol 90 mg/dL (0-200); HDL Cholesterol 34 mg/dL (60-100); LDL Cholesterol Calculated 43 mg/dL (50-129); LDL HDL Ratio 1.26 RATIO (0.00-3.22); Triglycerides 65 mg/dL (0-150)
[2019-10-01] MEDS: fluticasone nasal spray 16gm Btl 2 SPRAY NASAL ×2 (07:47→17:43)
[2019-10-01] MEDS: sodium chloride 0.9% 1,000 ML 75 ML IV (07:47)
[2019-10-01] MEDS: ascorbic acid 500 mg Tablet 1000 MG PO ×2 (07:56→17:44)
[2019-10-01] MEDS: fluoxetine 20 mg Capsule 60 MG PO (07:56)
[2019-10-01] MEDS: pantoprazole DR 40 mg Tablet PO (07:57)
[2019-10-01] MEDS: guaiFENesin 600 mg Tablet PO ×3 (07:57→17:44)
[2019-10-01] MEDS: budesonide 0.5 mg/2 mL Neb INHALATION ×2 (08:57→20:39)
--- NOTE | 2019-10-01 09:44 | PC.CHAP ---
Pastoral Care Encounter/Spiritual Assessment Type of Contact [] Declined pilling machine operator visit [] Patient/Family/Request visit [] Outpatient visit [] Follow-up visit [] Physician referral [] Code/Alert [x] Routine visit [] Staff referral [] Actively dying [] Patient sleeping [] Family support [] [] Out of room [] Palliative care [] [] Receiving care in room [] Pre-surgical visit [] Trauma [] Long length of stay [] ICU visit [] Other: Relational/Emotional Strength [] Patient feels connected with others/family/visitors/staff [] Distress [] Loneliness/isolation [] Abandonment Spirituality of Patient [] Person of Lou [] Attends Church of their Lou [] Believes in Prayer [] Reads Bible or Confucianist materials [] There are Spiritual issues to be addressed Conservation Agent Interventions [x] Prayer [x] Active listening [x] Non-anxious presence [x] Spiritual/emotional support [] Crisis/trauma care [] Spiritual counseling [] Bereavement support [] Provided bereavement packet [] Provided Bible/devotional materials [] Provided toy/stuffed animal, coloring book to patient or family member [] Provided Communion [] Anointing/[place] [] Salvation [x] Completed spiritual assessment [] Other: Impact on Illness or Injury [] Angry [] Fearful [] Anxious [] Often cries [] Exhaustion [] Unable to work [] Unable to attend temple [] Unable to walk/stand [] Unable to read [] Unable to drive [] Unable to eat/drink [] Unable to sleep [] Unable to be with family [] Patient intubated [] Other: Summary Patient weak, but feeling better Time spent with patient 10 min
--- NOTE | 2019-10-01 10:30 | P.PN_ITS ---
Vitals/I&O/Wt Last Vital Signs Temp 98.2 F 10/01/19 07:21 Pulse 79 10/01/19 09:03 Resp 16 10/01/19 08:58 BP 140/74 10/01/19 07:21 Pulse Ox 97 10/01/19 08:58 09/30/19 10/01/19 10/01/19 22:59 06:59 14:59 Intake Total 50 / 1050 250 / 1300 1240 / 1240 Balance 50 / 1050 250 / 1300 1240 / 1240 Weight last 48 hrs Weight 55.792 kg Weight 55.792 kg Physical Exam Narrative: EXAM NARRATIVE: General: No acute distress, AO x3, emaciated, dehydrated HEENT: PERRLA, pupils bilaterally equal and reactive Chest: Normal vesicular breath sounds, no added sounds, equal good air entry bilaterally CVS: S1-S2 regular, no murmurs, no tachycardia, no gallops, no rubs Abdomen: Soft, nontender, no organomegaly, bowel sounds present Neuro: No focal deficits, no facial deformity, AO x3, power 5/5 in all limbs Data : 10/01/19 04:05 10/01/19 04:05 A&P Assessment and plan (1) Falls frequently: Status: Acute (2) Diarrhea: Status: Acute (3) Complicated UTI (urinary tract infection): Status: Acute (4) Self-catheterizes urinary bladder: Status: Acute (5) Dehydration: Status: Acute (6) TYSON (acute kidney injury): Status: Acute (7) HTN (hypertension): Qualifiers: Hypertension type: essential hypertension Qualified Code(s): I10 - Essential (primary) hypertension (8) COPD (chronic obstructive pulmonary disease): Status: Acute Qualifiers: COPD type: unspecified COPD Qualified Code(s): J44.9 - Chronic obstructive pulmonary disease, unspecified (9) Lumbar radiculopathy: Status: Acute (10) Severe protein-energy malnutrition: Status: Acute (11) Macrocytic anemia: Status: Inactive Additional A&P Information Frequent falls/weakness: Due to baseline severe protein energy malnutrition along with further dehydration from recurrent diarrhea for last 3 days. Urine studies suggestive of mild UTI. Patient has chronic cystitis so cannot go with dysuric symptoms. Not in sepsis. UTI: CT abdomen pelvis results appreciated. No obstructive uropathy. Continue fluids at 75 cc/h. Change fluid to D5 NS and sodium creeping up today. Continue with ceftriaxone for now. Will de-escalate as per the culture results. Iron panel, procalcitonin, TSH appreciated. Stool studies still awaited. Continue home dose of methenamine hippurate. PT/OT evaluation. Fall precautions. A. fib with RVR: Patient having atrial fibrillation today. Does not have any history. Telemetry. Cardizem 30 mg every 8 hourly. The patient continues to have A. fib for 48 hours we will discuss with him regarding anticoagulation. Though I think patient is a poor candidate for anticoagulation because of frequent falls. Echocardiogram. TYSON: Because of dehydration. Creatinine at baseline now. IV hydration as above. No signs of metabolic acidosis or electrode abnormality. Continue to monitor BMP daily. COPD: Keep saturation over 90%. Budesonide twice daily, DuoNeb's every 6 hours. Start patient on Flonase, guaifenesin. Severe protein energy malnutrition: Regular diet with Ensure. We will monitor for refeeding syndrome. Hypertension:Not on any anti hypertensives. Goal BP 140/90 mmhg Anemia: At baseline. Severe iron deficiency anemia as per iron panel. Start patient on IV iron. 4 mg of 5 days. Day 1 of 5. Full code. Lovenox 30 for DVT prophylaxis Regular diet. Given severe deconditioning, dehydration and multiple comorbidities discussed with the patient regarding possible placement to SNF. He continues to deny and states he would rather go home. Plan for now would be home with home health. Attestations Medical Necessity Statement*: Frequent falls, UTI, A. fib with RVR Time Spent in Patient Care: Greater than 35 minutes (>than 50% of time spent in counselling and/or direct pt care on unit) . 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
[2019-10-01] MEDS: iron sucrose 200 MG in sodium chloride 0.9% (100 ml) 100 ML 220 MG IV (10:56)
[2019-10-01] MEDS: acetaminophen 325 mg Tablet 650 MG PO (10:57)
[2019-10-01] MEDS: dextrose 5%-sod chloride 0.9% 1,000 ML 50 ML IV (10:57)
--- NOTE | 2019-10-01 11:35 | ECG_ITS ---
[facility] Test Date: 2019-10-01 Pat Name: Michael Herrera Department: Room: 250 Gender: Male Quality Assurance Monitor Final: : 1945 Requested By: Chau Obrien Order Number: [id number] Vadim MD: Brissa Roblero M.D. Measurements Intervals [place] Rate: 144 P: AL: -1 QRS: -57 QRSD: 94 T: 189 QT: 281 QTc: 435 Interpretive Statements SINUS TACHYCARDIA LEFT ANTERIOR FASCICULAR BLOCK [QRS AXIS <= -45, QR IN I, RS IN II] ST DEVIATION AND MODERATE T-WAVE ABNORMALITY, CONSIDER INFERIOR ISCHEMIA [-0.1+ mV T WAVE IN II/aVF] Compared to ECG 09/30/2019 12:47:39 Left anterior fascicular block now present T-wave abnormality now present Possible ischemia now present Sinus rhythm no longer present Electronically Signed On 10-02-2019 22:29:20 CDT by Brissa Roblero M.D. [id number]
[2019-10-01 12:40] LABS: Magnesium 1.9 mg/dL (1.7-2.3); Phosphorus 2.8 mg/dL (2.5-4.5)
--- NOTE | 2019-10-01 14:14 | USCV_ITS ---
Sharon, Michael Age: 74 Gender: M : 1945 Exam Date: 10/01/2019 16:30 Ordering Phys: Chau Obrien MD Technologist: Moon Blanc Exam Location: [facility] [place] Indication: AFIB COPD BP: / HR: 91 Rhythm: Sinus Technical Quality: Adequate MEASUREMENTS (Male / Female) Normal Values 2D ECHO LV Diastolic Diameter PLAX 3.2 cm 4.2 - 5.9 / 3.9 - 5.3 cm LV Systolic Diameter PLAX 1.9 cm LV Chamber Size 4.2 cm IVS Diastolic Thickness 1.0 cm 0.6 - 1.0 / 0.6 - 0.9 cm IVS Systolic Thickness 1.1 cm LVPW Diastolic Thickness 1.1 cm 0.6 - 1.0 / 0.6 - 0.9 cm LVPW Systolic Thickness 1.0 cm RV Chamber Size 2.7 cm LVOT Diameter 2.0 cm LV Ejection Fraction 2D Teich 71.5 % LV Ejection Fraction MOD 2C 73.0 % LV Ejection Fraction 2C AL 72.7 % LA Diameter 2.3 cm LA Width 2.5 cm LA Height 2.2 cm RA Width 2.5 cm RA Height 3.1 cm Aorta at Sinotubular Diameter 3.2 cm M-MODE LV Diastolic Diameter MM 5.5 cm 4.2 - 5.9 / 3.9 - 5.3 cm LV Systolic Diameter MM 2.6 cm LV Ejection Fraction MM Teich 82.5 % IVS Diastolic Thickness MM 1.2 cm 0.6 - 1.0 / 0.6 - 0.9 cm IVS Systolic Thickness MM 1.7 cm LVPW Diastolic Thickness MM 1.5 cm 0.6 - 1.0 / 0.6 - 0.9 cm LVPW Systolic Thickness MM 1.6 cm RV Diastolic Diameter MM 1.0 cm Aortic Annulus Diameter 3.4 cm LA Ao Ratio MM 0.7 MV E Point Septal Separation 0.6 cm DOPPLER AV Peak Velocity 166.0 cm/s LVOT Peak Velocity 126.0 cm/s AV Area Cont Eq vti 2.4 cm squared AV Area Cont Eq pk 2.4 cm squared MV Area PHT 4.9 cm squared Mitral E to A Ratio 1.5 MV E' Velocity 14.0 cm/s Mitral E to MV E' Ratio 6.0 Mitral E to LV E' Lateral Ratio 5.7 Mitral E to LV E' Septal Ratio 6.5 TR Peak Velocity 150.2 cm/s TR Peak Gradient 9.0 mmHg TR Mean Velocity 110.8 cm/s TR Mean Gradient 5.2 mmHg TR Velocity Time Integral 30.9 cm TV Peak E Velocity 69.0 cm/s Right Atrial Pressure 3.0 mmHg Pulmonary Artery Systolic Pressu 12.0 mmHg PV Peak Velocity 80.0 cm/s RV Acceleration Time 0.1 s RV Ejection Time 0.3 s RV AcT/ET 0.4 FINDINGS Left Ventricle Normal left ventricular size, systolic function and wall thickness, with no regional wall motion abnormalities. Left ventricular ejection fraction is estimated at 60%. Normal diastolic function. Right Ventricle Normal right ventricular size and systolic function, RVSP 12 mmHg. Right Atrium Normal right atrial size. Left Atrium Normal left atrial size. Mitral Valve Structurally normal mitral valve. No mitral valve stenosis. No mitral valve regurgitation. Aortic Valve Aortic valve not well visualized. No aortic valve stenosis. No aortic valve regurgitation. Tricuspid Valve Structurally normal tricuspid valve. Trace tricuspid valve regurgitation. Pulmonic Valve Structurally normal pulmonic valve. Trace pulmonary valve regurgitation. Pericardium No pericardial effusion. Aorta Aorta not well visualized. CONCLUSIONS 1. Normal left ventricular size, systolic function and wall thickness, with no regional wall motion abnormalities. Left ventricular ejection fraction is estimated at 60%. Normal diastolic function. 2. No significant valvular abnormality. 3. Normal pulmonary artery pressure. 4. No prior similar studies to compare. Brissa Roblero MD (Electronically Signed) Final Date: 01 October 2019 18:01 S
[2019-10-01] MEDS: dilTIAZem 30 mg Tablet PO ×2 (14:39→21:28)
--- NOTE | 2019-10-01 15:29 | PC.RESP ---
Smoking Cessation and Pulmonary Rehab information sent to patient with a schedule of classes.
[2019-10-01] MEDS: tamsulosin 0.4 mg Capsule 0.8 MG PO (17:44)
[2019-10-01] MEDS: enoxaparin 30 mg/0.3 mL Syringe SUBCUT (17:44)
[2019-10-01] MEDS: pregabalin 100 mg Capsule PO (21:28)
[2019-10-02] VITALS (14 sets, daily range): BP systolic 119–142; BP diastolic 60–64; PULSE 70–86; RESP 16–20; TEMP 36.7–37.3; O2SAT 90–98; BMI 17.6
[2019-10-02] MEDS: cefTRIAXone 1,000 MG in sodium chloride 0.9% (plus) 50 ML 100 MG IV ×2 (02:21→13:51)
[2019-10-02] MEDS: ipratropium-albuterol 3 mL Neb INHALATION ×4 (02:44→21:17)
[2019-10-02 04:46] LABS: Basophils % 0.1 %; Eosinophils % 0.1 %; Hematocrit 26.9 % (42.0-52.0); Hemoglobin 8.6 g/dL (11.7-16.6); Lymphocytes # 1.2 10^3/uL (0.8-4.8); Lymphocytes % 10.6 %; Mean Corpuscular Hemoglobin 32.7 pg (28.0-34.0); Mean Corpuscular Volume 102.3 fL (80-94); Mean Platelet Volume 10.9 fL (7.4-10.4); Monocytes # 1.5 10^3/uL (0.2-0.9); Neutrophils % 75.9 %; Nucleated Red Blood Cells % 0 %; Platelet Count 213 10^3/cmm (130-400); Red Blood Count 2.63 10^6/uL (4.1-5.3); Red Cell Distribution Width 15.7 % (12.1-15.1); White Blood Count 11.2 10^3/uL (4.0-10.0)
[2019-10-02] MEDS: famotidine 20 mg/2 mL INJ IVP ×2 (04:50→17:42)
[2019-10-02 05:14] LABS: Alanine Aminotransferase 31 U/L (0-41); Albumin Level 3.1 g/dL (3.5-5.2); Alkaline Phosphatase 86 IU/L (40-130); Anion Gap 12.4 (5-19); Aspartate Amino Transferase 21 U/L (0-40); Blood Urea Nitrogen 17 mg/dL (8-23); Carbon Dioxide 19 mmol/L (22-29); Chloride 111 mmol/L (98-107); Globulin 2.6 g/dL (1.3-4.6); Glucose 122 mg/dL (65-115); Osmolality Calculated 286 mOsm/kg (285-295); Potassium 3.4 mmol/L (3.5-5.1); Sodium 139 mmol/L (136-145); Total Bilirubin 0.2 mg/dL (0.15-1.2); Total Protein 5.7 g/dL (6.6-8.7)
[2019-10-02 05:15] LABS: Lactic Sepsis W/Reflex 0.7 mmol/L (0.5-2.2)
[2019-10-02] MEDS: fluticasone nasal spray 16gm Btl 2 SPRAY NASAL ×2 (08:50→17:25)
[2019-10-02] MEDS: ascorbic acid 500 mg Tablet 1000 MG PO ×2 (08:50→17:24)
[2019-10-02] MEDS: dextrose 5%-sod chloride 0.9% 1,000 ML 50 ML IV ×2 (08:50→13:52)
[2019-10-02] MEDS: guaiFENesin 600 mg Tablet PO ×2 (08:51→17:24)
[2019-10-02] MEDS: fluoxetine 20 mg Capsule 60 MG PO (08:51)
[2019-10-02] MEDS: pantoprazole DR 40 mg Tablet PO (08:51)
[2019-10-02] MEDS: dilTIAZem 30 mg Tablet PO ×3 (08:51→17:24)
[2019-10-02] MEDS: acetaminophen 325 mg Tablet 650 MG PO (08:52)
[2019-10-02] MEDS: budesonide 0.5 mg/2 mL Neb INHALATION ×2 (09:00→21:17)
[2019-10-02] MEDS: iron sucrose 200 MG in sodium chloride 0.9% (100 ml) 100 ML 220 MG IV (09:17)
[2019-10-02] MEDS: tamsulosin 0.4 mg Capsule 0.8 MG PO (17:24)
[2019-10-02] MEDS: enoxaparin 40 mg/0.4 mL Syringe SUBCUT (17:24)
--- NOTE | 2019-10-02 17:31 | PM.PN ---
Subjective Subjective: Interval history: Afebrile since 4 PM yesterday. Heart rate is much better controlled after addition of Cardizem. No overnight events. Continues with intermittent self cath. WBC stable at 11.2. Medications: Reviewed: Yes Vitals/I&O/Wt Last Vital Signs Temp 98.0 F 10/02/19 15:42 Pulse 75 10/02/19 15:42 Resp 18 10/02/19 15:42 BP 120/61 10/02/19 15:42 Pulse Ox 93 10/02/19 15:42 10/02/19 10/02/19 10/02/19 06:59 14:59 22:59 Intake Total 1150 / 3370 731.667 / 731.667 Balance 1150 / 3370 731.667 / 731.667 Weight last 48 hrs Weight 55.792 kg Weight 55.792 kg Physical Exam Narrative: EXAM NARRATIVE: GEN: Awake, alert and oriented, no acute distress CVS: S1S2 N RS: CTA B/L Abd: Soft, nt/nd , bs+ TELECOMMUNICATIONS TECHNICIAN: no focal neuro deficits Data : 10/02/19 04:20 10/02/19 04:20 Micro: Microbiology 09/30/19 13:24 Urine Culture - Final Urine,Clean Catch Escherichia coli A&P Assessment and plan (1) Falls frequently: Status: Acute (2) Diarrhea: Status: Acute (3) Complicated UTI (urinary tract infection): Status: Acute (4) Self-catheterizes urinary bladder: Status: Acute (5) Dehydration: Status: Acute (6) TYSON (acute kidney injury): Status: Acute (7) HTN (hypertension): Qualifiers: Hypertension type: essential hypertension Qualified Code(s): I10 - Essential (primary) hypertension (8) COPD (chronic obstructive pulmonary disease): Status: Acute Qualifiers: COPD type: unspecified COPD Qualified Code(s): J44.9 - Chronic obstructive pulmonary disease, unspecified (9) Lumbar radiculopathy: Status: Acute (10) Severe protein-energy malnutrition: Status: Acute (11) Macrocytic anemia: Status: Inactive Additional A&P Information Frequent falls/weakness: Due to baseline severe protein energy malnutrition along with further dehydration from recurrent diarrhea for last 3 days. Urine studies suggestive of mild UTI. Patient has chronic cystitis so cannot go with dysuric symptoms. Not in sepsis. UTI: No obstructive uropathy on imaging. Continue fluids at 75 cc/h. Change fluid to D5 NS and sodium creeping up today. Continue with ceftriaxone for now Iron panel, procalcitonin, TSH appreciated. Stool studies still awaited. Continue home dose of methenamine hippurate. PT/OT evaluation. Fall precautions. A. fib with RVR: Heart rate much better controlled today. Cardizem 30 mg every 8 hourly. Will convert to sustained-release form tomorrow poor candidate for anticoagulation because of frequent falls. Echocardiogram with preserved ejection fraction. TYSON: Because of dehydration. Creatinine at baseline now. IV hydration as above. No signs of metabolic acidosis or electrolyte abnormality. Continue to monitor BMP daily. COPD: Keep saturation over 90%. Budesonide twice daily, DuoNeb's every 6 hours. Start patient on Flonase, guaifenesin. Severe protein energy malnutrition: Regular diet with Ensure. We will monitor for refeeding syndrome. Hypertension:Not on any anti hypertensives. Goal BP less than 140/90 mmhg Anemia: At baseline. Severe iron deficiency anemia as per iron panel. Start patient on IV iron. 4 mg of 5 days. Day 1 of 5. Full code. Lovenox 30 for DVT prophylaxis Regular diet. Given severe deconditioning, dehydration and multiple comorbidities discussed with the patient regarding possible placement to SNF. Plan for now would be home with home health likely in the upcoming 24 to 48 hours if remains afebrile and rate remains controlled Attestations Medical Necessity Statement*: likely in the upcoming 24 to 48 hours if remains afebrile and rate remains controlled Coding Level of Care Code Acute Power Cutting Machine Operator for Chg Fwd Diagnoses Falls frequently R29.6 Diarrhea R19.7 Complicated UTI (urinary tract infection) N39.0 Self-catheterizes urinary bladder Z78.9 Dehydration E86.0 TYSON (acute kidney injury) N17.9 HTN (hypertension) I10 Hypertension type: essential hypertension COPD (chronic obstructive pulmonary disease) J44.9 COPD type: unspecified COPD Lumbar radiculopathy M54.16 Severe protein-energy malnutrition E43 Macrocytic anemia D53.9
[2019-10-02] MEDS: pregabalin 100 mg Capsule PO (20:54)
[2019-10-03] VITALS (16 sets, daily range): BP systolic 103–152; BP diastolic 56–71; PULSE 70–155; RESP 16–22; TEMP 36.4–38.1; O2SAT 85–99
[2019-10-03] MEDS: cefTRIAXone 1,000 MG in sodium chloride 0.9% (plus) 50 ML 100 MG IV ×2 (01:05→13:50)
--- NOTE | 2019-10-03 02:50 | ECG_ITS ---
[facility] Test Date: 2019-10-03 Pat Name: Michael Herrera Department: Room: 250 Gender: Male Riding Coach: katrina : 1945 Requested By: Desiree Richardson Order Number: [id number] Vadim MD: Traci Rocha M.D. Measurements Intervals [place] Rate: 140 P: [place]: -1 QRS: -15 QRSD: 94 T: 132 QT: 303 QTc: 463 Interpretive Statements ATRIAL FIBRILLATION WITH RAPID VENTRICULAR RESPONSE NONSPECIFIC ST & T-WAVE ABNORMALITY Compared to ECG 10/01/2019 13:14:48 Sinus tachycardia no longer present Left anterior fascicular block no longer present Possible ischemia no longer present T-wave abnormality still present Electronically Signed On 10-03-2019 19:04:26 CDT by Traci Rocha M.D. [id number]
[2019-10-03] MEDS: ipratropium-albuterol 3 mL Neb INHALATION ×3 (02:58→20:30)
[2019-10-03] MEDS: acetaminophen 325 mg Tablet 650 MG PO ×2 (03:00→20:32)
[2019-10-03] MEDS: metoprolol tartrate 1 mg/1 mL SDV 5 mL 5 MG IV (04:11)
[2019-10-03] MEDS: sodium chloride 0.9% 250 ML IV (04:12)
[2019-10-03 04:36] LABS: Anion Gap 16.2 (5-19); Blood Urea Nitrogen 14 mg/dL (8-23); Calcium 8.7 mg/dL (8.5-10.5); Carbon Dioxide 17 mmol/L (22-29); Chloride 113 mmol/L (98-107); Glucose 143 mg/dL (65-115); Lactic Sepsis W/Reflex 0.7 mmol/L (0.5-2.2); Magnesium 1.9 mg/dL (1.7-2.3); Osmolality Calculated 295 mOsm/kg (285-295); Potassium 3.2 mmol/L (3.5-5.1); Sodium 143 mmol/L (136-145)
[2019-10-03 04:38] LABS: Troponin(5th) Baseline 35 ng/L (0-15)
--- NOTE | 2019-10-03 04:50 | ECG_ITS ---
[facility] Test Date: 2019-10-03 Pat Name: Michael Herrera Department: Room: 250 Gender: Male Director On Air: WENDIE : 1945 Requested By: Desiree Richardson Order Number: [id number] Vadim MD: Traci Rocha M.D. Measurements Intervals [place] Rate: 117 P: [place]: -1 QRS: -3 QRSD: 97 T: 78 QT: 333 QTc: 465 Interpretive Statements ATRIAL FIBRILLATION WITH RAPID VENTRICULAR RESPONSE NONSPECIFIC T-WAVE ABNORMALITY ABNORMAL RHYTHM ECG Compared to ECG 10/03/2019 03:04:07 No significant changes Electronically Signed On 10-03-2019 19:05:41 CDT by Traci Rocha M.D. [id number]
[2019-10-03] MEDS: potassium chloride ER 10 mEq Tablet 20 MEQ PO (05:28)
[2019-10-03] MEDS: metoprolol tartrate 25 mg Tablet 12.5 MG PO (05:29)
[2019-10-03] MEDS: famotidine 20 mg/2 mL INJ IVP (06:15)
[2019-10-03 07:13] LABS: Troponin 5 2HR 34.68 ng/L (0-15)
[2019-10-03 07:18] LABS: Troponin 5 2HR Delta -0.32 ABS# (0-10)
[2019-10-03] MEDS: pantoprazole DR 40 mg Tablet PO (08:39)
[2019-10-03] MEDS: ascorbic acid 500 mg Tablet 1000 MG PO ×2 (08:39→17:29)
[2019-10-03] MEDS: fluoxetine 20 mg Capsule 60 MG PO (08:39)
[2019-10-03] MEDS: dilTIAZem 30 mg Tablet PO ×4 (08:39→20:32)
[2019-10-03] MEDS: guaiFENesin 600 mg Tablet PO ×2 (08:39→17:29)
[2019-10-03] MEDS: iron sucrose 200 MG in sodium chloride 0.9% (100 ml) 100 ML 220 MG IV (08:40)
--- NOTE | 2019-10-03 08:50 | ECG_ITS ---
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 Measurements Intervals [place] Rate: 70 P: 37 ID: 185 QRS: 6 QRSD: 94 T: 55 QT: 398 QTc: 430 Interpretive Statements SINUS RHYTHM WITH OCCASIONAL VENTRICULAR PREMATURE COMPLEXES Compared to ECG 10/03/2019 05:23:38 Ventricular premature complex(es) now present Atrial fibrillation no longer present T-wave abnormality no longer present Electronically Signed On 10-03-2019 19:06:16 CDT by Traci Rocha M.D. [id number]
[2019-10-03] MEDS: budesonide 0.5 mg/2 mL Neb INHALATION ×2 (09:07→20:30)
[2019-10-03 11:45] LABS: Troponin 5 6HR 26.93 ng/L (0-15)
[2019-10-03 11:49] LABS: Troponin 5 6HR Delta -8.07 ng/L (0-12)
[2019-10-03] MEDS: potassium chloride ER 10 mEq Tablet 40 MEQ PO (13:50)
--- NOTE | 2019-10-03 15:05 | PC.SOCIAL ---
Addendum entered by Marichuy Obregon RN 10/03/19 15:06: PLEASE NOTE ANAMARIA PUT A COPY IN CHART Original Note: IM FOLLOW UP EXPLAINED, INTIALED, DATED AND TIMED WITH COPY PROVIDED. PT VERBALIZED UNDERSTANDING
--- NOTE | 2019-10-03 15:28 | PM.PN ---
Subjective Subjective: Interval history: Overnight had T-max of 100.5. Also noted to have atrial fibrillation again, which was rate controlled with IV Cardizem 5 mg push and also IV metoprolol push. Oxygen saturation noted to be same. He is extremely upset with still being in the hospital and wants to discharge home as soon as possible. Medications: Reviewed: Yes Vitals/I&O/Wt Last Vital Signs Temp 97.8 F 10/03/19 11:46 Pulse 88 10/03/19 14:30 Resp 18 10/03/19 14:29 BP 132/63 10/03/19 11:46 Pulse Ox 96 10/03/19 14:29 10/03/19 10/03/19 10/03/19 06:59 14:59 22:59 Intake Total 50 / 1421.667 240 / 240 Balance 50 / 1421.667 240 / 240 Weight last 48 hrs Weight 55.747 kg Weight 55.792 kg Physical Exam Narrative: EXAM NARRATIVE: GEN: Awake, alert and oriented, no acute distress CVS: S1S2 N RS: Bilateral scattered wheezing present Abd: Soft, nt/nd , bs+ HEADMASTER/MISTRESS: no focal neuro deficits Urinary Catheter Management^: Lowery: Cath Placed During This Visit: yes Urinary Catheter Date of Insertion: 10/03/19 Urinary Catheter Time of Insertion: 13:16 Data : 10/02/19 04:20 10/03/19 04:10 Micro: Microbiology 10/03/19 12:38 Blood Culture - Preliminary Blood SPECIMEN COLLECTED 10/03/19 12:30 Blood Culture - Preliminary Blood SPECIMEN COLLECTED 09/30/19 13:24 Urine Culture - Final Urine,Clean Catch Escherichia coli A&P Assessment and plan (1) Falls frequently: Status: Acute (2) Diarrhea: Status: Acute (3) Complicated UTI (urinary tract infection): Status: Acute (4) Self-catheterizes urinary bladder: Status: Acute (5) Dehydration: Status: Acute (6) TYSON (acute kidney injury): Status: Acute (7) HTN (hypertension): Qualifiers: Hypertension type: essential hypertension Qualified Code(s): I10 - Essential (primary) hypertension (8) COPD (chronic obstructive pulmonary disease): Status: Acute Qualifiers: COPD type: unspecified COPD Qualified Code(s): J44.9 - Chronic obstructive pulmonary disease, unspecified (9) Lumbar radiculopathy: Status: Acute (10) Severe protein-energy malnutrition: Status: Acute (11) Macrocytic anemia: Status: Inactive Additional A&P Information Frequent falls/weakness: Due to baseline severe protein energy malnutrition along with further dehydration from recurrent diarrhea for last 3 days. Urine studies suggestive of UTI. Patient has chronic cystitis so cannot go with dysuric symptoms. UTI: No obstructive uropathy on imaging. CT findings likely suggestive of necrosis appears to be at baseline. Continue with ceftriaxone for now given susceptible E. coli isolate Patient continues to have low-grade intermittent fevers, will insert Lowery catheter daily to see if component of urinary retention is contributing to. Continue home dose of methenamine hippurate. PT/OT evaluation. Fall precautions. A. fib with RVR: Overnight went into A. fib with heart rate in 140s, broken with metoprolol. Will switch over to Cardizem today. Echocardiogram with preserved ejection fraction. TYSON: Because of dehydration. Creatinine at baseline now. Continue IV fluids No signs of metabolic acidosis or electrolyte abnormality. Continue to monitor BMP daily. COPD: Keep saturation over 90%. Budesonide twice daily, DuoNeb's every 6 hours. Start patient on Flonase, guaifenesin. Severe protein energy malnutrition: Regular diet with Ensure. We will monitor for refeeding syndrome. Hypertension:Not on any anti hypertensives. Goal BP less than 140/90 mmhg Anemia: At baseline. Severe iron deficiency anemia as per iron panel. Start patient on IV iron. 4 mg of 5 days. Day 1 of 5. Full code. Lovenox 30 for DVT prophylaxis Regular diet. Given severe deconditioning, dehydration and multiple comorbidities discussed with the patient regarding possible placement to SNF however he refused. Insists on returning home today. Attestations Medical Necessity Statement*: ongoing fever, urinary retention Coding Level of Care Code Acute Creative Technologist for g Fwd Diagnoses Falls frequently R29.6 Diarrhea R19.7 Complicated UTI (urinary tract infection) N39.0 Self-catheterizes urinary bladder Z78.9 Dehydration E86.0 TYSON (acute kidney injury) N17.9 HTN (hypertension) I10 Hypertension type: essential hypertension COPD (chronic obstructive pulmonary disease) J44.9 COPD type: unspecified COPD Lumbar radiculopathy M54.16 Severe protein-energy malnutrition E43 Macrocytic anemia D53.9
[2019-10-03] MEDS: tamsulosin 0.4 mg Capsule 0.8 MG PO (17:29)
[2019-10-03] MEDS: enoxaparin 40 mg/0.4 mL Syringe SUBCUT (17:29)
[2019-10-03] MEDS: pregabalin 100 mg Capsule PO (20:32)
[2019-10-04] VITALS (18 sets, daily range): BP systolic 96–144; BP diastolic 62–82; PULSE 74–138; RESP 15–36; TEMP 36.6–36.8; O2SAT 91–100
[2019-10-04] MEDS: ipratropium-albuterol 3 mL Neb INHALATION ×4 (02:27→20:35)
[2019-10-04] MEDS: cefTRIAXone 1,000 MG in sodium chloride 0.9% (plus) 50 ML 100 MG IV ×3 (02:54→20:05)
[2019-10-04] MEDS: acetaminophen 325 mg Tablet 650 MG PO (02:58)
[2019-10-04] MEDS: guaiFENesin 600 mg Tablet PO ×2 (08:00→17:15)
[2019-10-04] MEDS: fluoxetine 20 mg Capsule 60 MG PO (08:00)
[2019-10-04] MEDS: ascorbic acid 500 mg Tablet 1000 MG PO ×2 (08:01→17:15)
[2019-10-04] MEDS: dilTIAZem 30 mg Tablet PO (08:01)
[2019-10-04] MEDS: pantoprazole DR 40 mg Tablet PO (08:01)
[2019-10-04] MEDS: budesonide 0.5 mg/2 mL Neb INHALATION ×2 (08:04→20:35)
[2019-10-04] MEDS: fluticasone nasal spray 16gm Btl 2 SPRAY NASAL ×2 (08:05→17:14)
[2019-10-04] MEDS: iron sucrose 200 MG in sodium chloride 0.9% (100 ml) 100 ML 220 MG IV (09:33)
[2019-10-04] MEDS: FUROsemide 10 mg/mL SDV 4mL 40 MG IVP ×2 (12:17→12:19)
--- NOTE | 2019-10-04 12:25 | XRR_ITS ---
PROCEDURE INFORMATION: Exam: XR Chest, 1 View Exam date and time: 10/04/2019 12:57 PM Age: 74 years old Clinical indication: Shortness of breath; Additional info: Chest pain, SOB TECHNIQUE: Imaging protocol: XR of the chest Views: 1 view. COMPARISON: CR XR chest 1V portable [id number] 09/30/2019 12:20 PM FINDINGS: Lungs: Examination there is interstitial congestion in the right perihilar region new since prior examination. A developing pneumonia cannot be ruled out. Low lung volumes seen the lungs are otherwise clear. Pleural space: Unremarkable. No pleural effusion. No pneumothorax. Heart/Mediastinum: Unremarkable. No cardiomegaly. Bones/joints: Unremarkable. XR/XR chest 1V portable [id number] IMPRESSION: Right perihilar interstitial congestion rule out early pneumonia Otherwise negative examination
--- NOTE | 2019-10-04 12:25 | ECG_ITS ---
[facility] Test Date: 2019-10-04 Pat Name: Michael Herrera Department: Room: 250 Gender: Male Resident Care Spec: : 1945 Requested By: Gely Payne Order Number: [id number] Vadim MD: Josesito Hernández M.D. Measurements Intervals [place] Rate: 115 P: [place]: -1 QRS: -5 QRSD: 93 T: 65 QT: 313 QTc: 434 Interpretive Statements ATRIAL FIBRILLATION WITH RAPID VENTRICULAR RESPONSE INFERIOR MYOCARDIAL INFARCTION [40+ ms Q WAVE AND/OR ST/T ABNORMALITY IN II/aVF], PROBABLY OLD Compared to ECG 10/03/2019 09:04:30 Myocardial infarct finding now present Sinus rhythm no longer present Ventricular premature complex(es) no longer present Electronically Signed On 10-05-2019 8:03:06 CDT by Josesito Hernández M.D. [id number]
[2019-10-04] MEDS: metoprolol tartrate 1 mg/1 mL SDV 5 mL 5 MG IV ×3 (12:28→21:32)
[2019-10-04 12:31] LABS: ABG PCO2 31.3 mmHg (35-45); Alveolar-Arterial Oxygen Gradi 130.5 mmHg (5-10); Base Excess ABG -4.4 mmol/L (-2.0-2.0); Blood Gas Sample Site Brachial, right; Blood Gas Sample Type Arterial; Carboxyhemoglobin 1.3 %THgb (0.4-20.1); HCO3 ABG 19.6 mmol/L (22-26); HGB O2 Sat 88.8 % (95-100); Ionized Calcium Level - ABG 1.3 mmol/L (1.1-1.4); Methemoglobin 0.9 % (0.4-1.5); Oxygen Device NC; Oxygen Saturation ABG 90.8; PO2 ABG 54.6 mmHg (80.0-100.0); Potassium Level - ABG 3.8 mmol/L (3.5-5.0); Total Hemoglobin 9.8 g/dL (14-18)
[2019-10-04] MEDS: potassium chloride oral liq 20 mEq/15 mL UDC 40 MEQ PO (12:47)
[2019-10-04 12:57] LABS: Basophils % 0.2 %; Eosinophils # 0.1 10^3/uL (0.0-0.8); Eosinophils % 0.4 %; Hematocrit 29.5 % (42.0-52.0); Hemoglobin 9.2 g/dL (11.7-16.6); Lymphocytes # 1.1 10^3/uL (0.8-4.8); Lymphocytes % 8.3 %; Mean Corpuscular HGB Conc 31.2 g/dL (30.0-36.0); Mean Corpuscular Hemoglobin 31.9 pg (28.0-34.0); Mean Corpuscular Volume 102.4 fL (80-94); Monocytes # 1.1 10^3/uL (0.2-0.9); Monocytes % 8.6 %; Neutrophils # 10.52 10^3/uL (1.8-7.7); Neutrophils % 81.8 %; Nucleated Red Blood Cells % 0 %; Platelet Count 268 10^3/cmm (130-400); Red Blood Count 2.88 10^6/uL (4.1-5.3); Red Cell Distribution Width 15.6 % (12.1-15.1); White Blood Count 12.9 10^3/uL (4.0-10.0)
[2019-10-04] MEDS: dilTIAZem 60 mg Tablet PO ×2 (13:00→20:05)
[2019-10-04 13:08] LABS: Alanine Aminotransferase 50 U/L (0-41); Albumin Level 3.3 g/dL (3.5-5.2); Alkaline Phosphatase 112 IU/L (40-130); Anion Gap 16.7 (5-19); Aspartate Amino Transferase 30 U/L (0-40); Blood Urea Nitrogen 16 mg/dL (8-23); Calcium 9.7 mg/dL (8.5-10.5); Carbon Dioxide 18 mmol/L (22-29); Chloride 113 mmol/L (98-107); Creatinine Clr Calc Pharmacy 54.4628; Globulin 3.3 g/dL (1.3-4.6); Glucose 128 mg/dL (65-115); Osmolality Calculated 296 mOsm/kg (285-295); Potassium 3.7 mmol/L (3.5-5.1); Sodium 144 mmol/L (136-145); Total Bilirubin 0.2 mg/dL (0.15-1.2); Total Protein 6.6 g/dL (6.6-8.7)
[2019-10-04 13:09] LABS: Troponin(5th) Baseline 27 ng/L (0-15)
--- NOTE | 2019-10-04 13:16 | PC.NURSE ---
Patient placed call light. Noted to be significantly SOB, diaphoretic with HR 120-145 ST/ A-fib O2 sat 83-92% on [address] Payne notified and present. Orders received to administer 125 mg IV Solumedrol, Metoprolol 5 mg IV, Lasix 40 mg IV. Patient placed on zoll monitor for bedside cardiac monitoring. EKG obtained. Stat labs drawn. Patient was able to verbalize relief in shortness of breath after these interventions. Will transfer patient to CSU room 106.
--- NOTE | 2019-10-04 13:22 | PM.PN ---
Subjective Subjective: Interval history: This afternoon had an episode of A. fib with RVR with heart rate in the 150s. Patient was noted to be dyspneic at that time with O2 sat of 88% on 2 L/min nasal cannula. He is also complaining of chest pressure. His oxygen requirement since this morning has been a little bit higher than normal at 4 L/min. He was noted to be using accessory muscles and a fair amount of respiratory distress. Stabilized after giving IV Lasix 40 mg x 1, IV Solu-Medrol 125 mg x 1 metoprolol 5 mg IV x1. His urine output so far has been 1.5 L through the day. He is afebrile over the last 24 hours. Moved to CSU afterwards. Weight is up today from 55 to 60 kg. Medications: Reviewed: Yes Vitals/I&O/Wt Last Vital Signs Temp 98.2 F 10/04/19 12:00 Pulse 133 H 10/04/19 12:22 Resp 28 H 10/04/19 12:20 BP 134/68 10/04/19 12:00 Pulse Ox 91 10/04/19 12:20 10/03/19 10/04/19 10/04/19 22:59 06:59 14:59 Intake Total 50 / 450 360 / 360 Output Total 450 / 450 Balance -450 / -50 50 / 0 360 / 360 Weight last 48 hrs Weight 60.328 kg Weight 55.747 kg Physical Exam Narrative: EXAM NARRATIVE: GEN: Awake, alert, noted to be in respiratory distress with use of accessory muscles, audibly wheezing CVS: tachycardia RS: Bilateral wheezing in all lung rodriguez, particularly prominent posteriorly Abd: Soft, nt/nd , bs+ CUSTOMER FIELD REPRESENTATIVE: no focal neuro deficits Again with minimal dependent pitting edema of the left lower extremity Urinary Catheter Management^: Lowery: Cath Placed During This Visit: yes Reason for Continuing Indwelling Catheter: Acute Urinary Retention or Obstruction Urinary Catheter Date of Insertion: 10/03/19 Urinary Catheter Time of Insertion: 13:16 Data : 10/04/19 12:40 10/04/19 12:40 Micro: Microbiology 10/03/19 12:30 Blood Culture - Preliminary Blood NEGATIVE TO DATE 10/03/19 12:38 Blood Culture - Preliminary Blood SPECIMEN COLLECTED A&P Assessment and plan (1) Falls frequently: Status: Acute (2) Diarrhea: Status: Acute (3) Complicated UTI (urinary tract infection): Status: Acute (4) Self-catheterizes urinary bladder: Status: Acute (5) Dehydration: Status: Acute (6) TYSON (acute kidney injury): Status: Acute (7) HTN (hypertension): Qualifiers: Hypertension type: essential hypertension Qualified Code(s): I10 - Essential (primary) hypertension (8) COPD (chronic obstructive pulmonary disease): Status: Acute Qualifiers: COPD type: unspecified COPD Qualified Code(s): J44.9 - Chronic obstructive pulmonary disease, unspecified (9) Lumbar radiculopathy: Status: Acute (10) Severe protein-energy malnutrition: Status: Acute (11) Macrocytic anemia: Status: Inactive Additional A&P Information Flash pulmonary edema, likely has a combination of A. fib with RVR fluid overload. Significantly improved after Lasix 40 mg IV push, rate control with metoprolol 5 mg IV push, Cardizem has been increased to 60 mg p.o. every 8 hours. We will also go ahead and load with digoxin 250 mcg IV followed by 125 mcg at 6 and 12 hours. Also received Solu-Medrol 125 mg x 1, albuterol nebulization. Chest pressure therefore check stat EKG, without any acute ST-T wave changes. Showed A. fib with RVR. Check troponin series. Repeat Lasix at 4 PM today. Grossly weight is up 5 kg. Continue BETTY monitoring and daily weight check. Echocardiogram with preserved ejection fraction Stat chest x-ray per my read shows interval development of interstitial infiltrates consistent with pulmonary edema. stat ABG and D dimer Frequent falls/weakness: Due to baseline severe protein energy malnutrition along with further dehydration from recurrent diarrhea for last 3 days. Urine studies suggestive of UTI. Patient has continued to have low-grade fevers in spite of being on appropriate antimicrobial status culture directed. Suspect that urinary retention was playing a big part in this. He now has a Lowery catheter placed since yesterday. Currently has been afebrile over the last 24 hours. Continue with ceftriaxone for now given susceptible E. coli isolate PT/OT evaluation. Fall precautions. TYSON: Because of dehydration, initially upon admission. Now resolved.. COPD: Keep saturation over 90%. Budesonide twice daily, DuoNeb's every 6 hours. Start patient on Flonase, guaifenesin. Received Solu-Medrol 125 mg currently, however more likely that acute decompensation currently was related to pulmonary edema rather than COPD exacerbation Severe protein energy malnutrition: Regular diet with Ensure. We will monitor for refeeding syndrome. Hypertension:Not on any anti hypertensives. Goal BP less than 140/90 mmhg Anemia: At baseline. Severe iron deficiency anemia as per iron panel. Start patient on IV iron. 4 mg of 5 days. Day 1 of 5. Full code. Lovenox 30 for DVT prophylaxis Regular diet. Given severe deconditioning, dehydration and multiple comorbidities discussed with the patient regarding possible placement to SNF however he refused. Home with HH is the plan currently Attestations Medical Necessity Statement*: A fib with RVR with flash pulmonary edema today, needs respiratory optimization Coding Level of Care Code Acute Glass Calibrator for Chg Fwd Diagnoses Falls frequently R29.6 Diarrhea R19.7 Complicated UTI (urinary tract infection) N39.0 Self-catheterizes urinary bladder Z78.9 Dehydration E86.0 TYSON (acute kidney injury) N17.9 HTN (hypertension) I10 Hypertension type: essential hypertension COPD (chronic obstructive pulmonary disease) J44.9 COPD type: unspecified COPD Lumbar radiculopathy M54.16 Severe protein-energy malnutrition E43 Macrocytic anemia D53.9
[2019-10-04] MEDS: digoxin 250 mcg/ml INJ 2 mL IVP (14:15)
--- NOTE | 2019-10-04 14:25 | ECG_ITS ---
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 Measurements Intervals [place] Rate: 116 P: [place]: -1 QRS: 10 QRSD: 100 T: 81 QT: 303 QTc: 422 Interpretive Statements ATRIAL FIBRILLATION WITH RAPID VENTRICULAR RESPONSE ABNORMAL RHYTHM ECG Compared to ECG 10/04/2019 12:44:10 Myocardial infarct finding no longer present Electronically Signed On 10-05-2019 8:05:49 CDT by Josesito Hernández M.D. [id number]
--- NOTE | 2019-10-04 15:12 | PC.NURSE ---
PATIENT'S HEART RATE UPON ARRIVAL TO CSU WAS 130'S TO 140'S. PATIENT IS ASYMPTOMATIC. ADMINISTERED 250MCG OF DIGOXIN PREVIOUSLY ORDERED PRIOR TO ARRIVAL TO FLOOR. AFTER ADMINISTRATION, HEART RATE IS STILL MAINTAINING 120'S TO 140'S. DR. KHOURY NOTIFIED. ORDERED TO GIVE 5MG IV METOPROLOL TOTAL. ORDERED TO GIVE 2.5MG, WAIT 5 MINUTES AND ADMINISTER 2.5MG IF HEART RATE IS STILL NOT SLOWING DOWN. WILL CONTINUE TO MONITOR.
[2019-10-04 15:33] LABS: Troponin 5 2HR 30.95 ng/L (0-15); Troponin 5 2HR Delta 3.95 ABS# (0-10)
[2019-10-04] MEDS: FUROsemide 10 mg/mL SDV 2mL 20 MG IVP (15:42)
[2019-10-04 16:03] LABS: Glucose Point of Care 153 mg/dL (70-110)
[2019-10-04] MEDS: tamsulosin 0.4 mg Capsule 0.8 MG PO (17:14)
[2019-10-04] MEDS: enoxaparin 40 mg/0.4 mL Syringe SUBCUT (17:14)
--- NOTE | 2019-10-04 17:36 | PC.NURSE ---
PATIENT HAS HAD TWO 3 SEC[address] PA[address] ON TELEMETRY. DR. KHOURY NOTIFIED. PATIENT REMAINS IN AFIB. WILL CONTINUE TO MONITOR.
--- NOTE | 2019-10-04 18:25 | ECG_ITS ---
[facility] Test Date: 2019-10-04 Pat Name: Mihcael Herrera Department: Room: 106 Gender: Male Conference Coordinator: : 1945 Requested By: Gely Payne Order Number: [id number] Vadim MD: Josesito Hernández M.D. Measurements Intervals [place] Rate: 94 P: [place]: -1 QRS: 17 QRSD: 100 T: 74 QT: 337 QTc: 423 Interpretive Statements ATRIAL FLUTTER POSSIBLE RIGHT VENTRICULAR CONDUCTION DELAY [RSR (QR) IN V1/V2] Compared to ECG 10/04/2019 14:34:07 Atrial fibrillation no longer present Electronically Signed On 10-05-2019 8:06:54 CDT by Josesito Hernández M.D. [email or web address]/store/[id number]
[2019-10-04 19:37] LABS: Troponin 5 6HR 26.99 ng/L (0-15)
[2019-10-04 19:39] LABS: Troponin 5 6HR Delta -0.01 ng/L (0-12)
[2019-10-04] MEDS: pregabalin 100 mg Capsule PO (20:05)
--- NOTE | 2019-10-04 21:25 | PC.NURSE ---
REPORT RECEIVED FROM OFF GOING NURSE. PT DENIES PAIN AT THIS TIME. HR IS BOUNCING FROM 90'S - 110'S. WILL CONTINUE TO MONITOR.
--- NOTE | 2019-10-04 21:26 | PC.NURSE ---
DR MARION NOTIFIED PT HR INCREASED TO 150. DR PARKS PUT IN ORDERS.
--- NOTE | 2019-10-04 21:46 | PC.NURSE ---
PT HR SHOT UP TO 150. DR MARION WAS NOTIFIED. METOPROLOL 5MG IVP WAS ORDERED. COUPLING MACHINE OPERATOR NURSE GAVE IVP. HR IS 96 AT THIS TIME. WILL CONTINUE TO MONITOR.
[2019-10-05] VITALS (10 sets, daily range): BP systolic 109–122; BP diastolic 57–70; PULSE 75–98; RESP 16–30; TEMP 36.5–37; O2SAT 91–95
--- NOTE | 2019-10-05 00:20 | PC.NURSE ---
PT CONVERTED TO NORMAL SINUS RHYTHM WITH A HR OF 70.
[2019-10-05] MEDS: ipratropium-albuterol 3 mL Neb INHALATION ×3 (02:36→15:33)
--- NOTE | 2019-10-05 03:38 | PC.NURSE ---
PT APPEARED TO HAVE SLEPT MOST OF THE NIGHT. PT WAS IN A-FIB WITH RVR HR 150, METOPROLOL WAS GIVEN. PT CONVERTED TO NSR. WILL CONTINUE TO MONITOR.
[2019-10-05] MEDS: dilTIAZem 60 mg Tablet PO ×2 (03:59→12:16)
--- NOTE | 2019-10-05 04:48 | PC.NURSE ---
PT WENT BACK INTO A-FIB. RATE IS CONTROLLED INN THE 80'S. WILL CONTINUE TO MONITOR.
[2019-10-05] MEDS: budesonide 0.5 mg/2 mL Neb INHALATION (08:33)
--- NOTE | 2019-10-05 08:43 | PC.SOCIAL ---
IMM Update Pg 2 of IMM updated with patient and copy provided.
[2019-10-05] MEDS: fluoxetine 20 mg Capsule 60 MG PO (09:52)
[2019-10-05] MEDS: guaiFENesin 600 mg Tablet PO (09:52)
[2019-10-05] MEDS: ascorbic acid 500 mg Tablet 1000 MG PO (09:52)
[2019-10-05] MEDS: iron sucrose 200 MG in sodium chloride 0.9% (100 ml) 100 ML 220 MG IV (09:52)
[2019-10-05] MEDS: pantoprazole DR 40 mg Tablet PO (09:52)
[2019-10-05] MEDS: fluticasone nasal spray 16gm Btl 2 SPRAY NASAL (09:53)
[2019-10-05] MEDS: FUROsemide 10 mg/mL SDV 2mL 20 MG IVP (10:46)
--- NOTE | 2019-10-05 12:21 | PC.NURSE ---
AT APPROXIMATELY 1150 THIS AM, THE PATIENT'S HEART RHYTHM CONVERTED BACK TO NORMAL SINUS RHYTHM FROM ATRIAL FIBRILLATION. DR. KHOURY NOTIFIED.
--- NOTE | 2019-10-05 15:22 | PM.DCS ---
Discharge Providers Date of Admission: 09/30/19 14:22 Date of Discharge: October 05, 2019 Attending Provider at Admission: Chau Obrien MD Attending Provider at Discharge: Gely Payne MD Primary Care Provider: [facility] Diagnoses at Discharge Discharge Diagnosis (1) Falls frequently: Status: Acute (2) Diarrhea: Status: Acute Qualifiers: Diarrhea type: unspecified type Qualified Code(s): R19.7 - Diarrhea, unspecified (3) Complicated UTI (urinary tract infection): Status: Acute (4) Self-catheterizes urinary bladder: Status: Acute (5) Dehydration: Status: Acute (6) TYSON (acute kidney injury): Status: Acute (7) HTN (hypertension): Qualifiers: Hypertension type: essential hypertension Qualified Code(s): I10 - Essential (primary) hypertension (8) COPD (chronic obstructive pulmonary disease): Status: Acute Qualifiers: COPD type: unspecified COPD Qualified Code(s): J44.9 - Chronic obstructive pulmonary disease, unspecified (9) Lumbar radiculopathy: Status: Acute (10) Severe protein-energy malnutrition: Status: Acute (11) Macrocytic anemia: Status: Inactive (12) Atrial fibrillation: Status: Acute (13) Pulmonary edema: Status: Acute Reason for Visit Reason for Visit: DIARRHEA Hospital Course Discharge Summary: Michael Herrera JR is a 74 year old male PMHx of HTN, COPD, Chronic smoker, Chronic back pain with radiculopathy, wheelchair bound, intermittent self catheterization, chronic cytsitis, GERD, who was sent in on 09/29 by his home health nurse after he was found to have nausea, vomiting and diarrhea. He denied having any hematemesis, melena, bleeding from anywhere else, dizziness, weakness in his arms, urinary or bladder incontinence, seizure-like activity, recent travels, possible exposure to tick bites. In the ER blood work showed WBC 17, urinalysis +2+ for leuk esterase and more than 100 WBCs. He was treated for acute UTI with iv ceftriaxone. Urine cx showed E.coli susceptible to CTX. He was initially continued on intermittent self cath but then continued to have low grade fevers in spite of appropriate antimicrobials and hence Luna catheter was inserted to relieve any component of obstruction. Fever has since resolved. WBC has trended down to 11-12 which is close to his baseline. He was also found to have iron deficiency anemia treated with 5 days of iv venofer. Hospital course was complicated by development of Afib with RVR, for which cardizem was added. Yesterday he had one such episode with HR up to 160 and developed flash pulmonary edema which was managed with iv furosemide. Patient responded well and dyspnea has resolved. He received pushes of metoprolol and a loading dose of digoxin. Subsequent doses were held as he developed 3-5 second pauses. This morning at 11:30 am, he converted back to sinus rhythm. Anticoagulation has not been initiated after a risk/benefit discussion as patient is a high falll risk. He will be discharged on po cardizem added to his medications. He is alert, awake at time of discharge with no respiratory distress. Of note, since arrival, he has required 2-3 lpm 02 via nasal canula, which is most likely related to his underlying COPD, likely to have worsened. Will discharge him with referral to pulmonology for the same. LABA and LAMA have been started. He has only been taking albuterol until now. Pertinent imaging studies include: abd/pelvis CT: focal asymmetrical bladder wall thickening dome and right lateral margin urinary bladder, B/L stable hydronephrosis. (prior to Luna). Echocardiogram; Normal left ventricular size, systolic function and wall thickness, with no regional wall motion abnormalities. Left ventricular ejection fraction is estimated at 60%. Normal diastolic function. 10/03: B/L pulmonary congestion appears to be pulmonary edema per my assesment. Patient was given option of going to rehab, however has opted to go home with S. Physical Exam Narrative: EXAM NARRATIVE: GEN: Awake, alert and oriented, no acute distress CVS: S1S2 N RS: CTA B/L all areas Abd: Soft, nt/nd , bs+ Ext: no edema : luna catheter in place Urinary Catheter Management^: Luna: Cath Placed During This Visit: yes Reason for Continuing Indwelling Catheter: Acute Urinary Retention or Obstruction Urinary Catheter Date of Insertion: 10/03/19 Urinary Catheter Time of Insertion: 13:16 Discharge Data Data Completed and Pending: Completed Studies During Hospitalization Category Date Time Status CT abdomen pelvis wo con [id number] Rout ine Cat Scan 09/30/19 16:[address] head wo con* 7 0450 Urgent Cat Scan 09/30/19 12:13 Completed XR chest 1V farhad ble [id number] Stat Exams 09/30/19 12:13 Completed XR chest 1V farhad ble [id number] Stat Exams 10/04/19 12:25 Completed CV echo complete* [id number] Routine Ultrasound 10/01/19 14:14 Completed Pending at discharge Category Date Time Status Blood Culture Sta t Lab 10/03/19 12:38 Results Clostridioides Di fficile PCR Routin e Lab 09/30/19 13:23 Results Enteric Bacterial Panel by PCR Rout ine Lab 09/30/19 13:23 Results Enteric Parasite Panel by PCR Routi ne Lab 09/30/19 13:23 Results Immunochemical Fe amarilis OCB Routine Lab 09/30/19 13:23 Results Lactoferrin Routi ne Lab 09/30/19 13:23 Results MRSA by PCR Routi ne Lab 09/30/19 16:16 Uncollected Labs from last 24 hours 10/04/19 10/04/19 10/04/19 19:17 15:55 15:00 POC Glucose 153 Troponin T 120 Min [place] 30.95 H Delta Troponin T 3.95 Troponin T Hi Sens 6Hr 26.99 H Troponin T Hi Sens 6Hr Delta -0.01 L Vitals: Last Vital Signs Temp 97.7 F 10/05/19 15:12 Pulse 82 10/05/19 15:12 Resp 23 H 10/05/19 15:12 BP 122/64 10/05/19 15:12 Pulse Ox 91 10/05/19 15:12 Discharge Plan Discharge Patient Disposition: Home, Self-Care Condition: Stable Prescriptions: New Levaquin 500 mg tablet 500 mg PO Q24H 7 Days Qty: 7 RF: 0 Cardizem CD 180 mg capsule,extended release 24hr 180 mg PO Q24H Qty: 30 RF: 1 Advair HFA 115-21 mcg/actuation HFA aerosol inhaler 2 inh INHALATION Q12H Qty: 8 RF: 1 Spiriva with HandiHaler 18 mcg capsule, w/inhalation device 1 cap INHALATION DAILY Qty: 30 RF: 0 Continued methenamine hippurate 1 gram tablet 1 gm PO BID Qty: 60 RF: 12 bisacodyl 5 mg tablet 5 mg PO DAILY PRN (Reason: constipation) Qty: 30 RF: 0 tamsulosin [Flomax] 0.4 mg Capsule 0.8 mg PO QPM RF: 0 omeprazole 20 mg Capsule,Delayed Release(Dr/Ec) 20 mg PO BID RF: 0 fluoxetine [Prozac] 20 mg Capsule 60 mg PO DAILY RF: 0 Eucerin Cream 1 applic TOPICAL DAILY PRN (Reason: Dry Skin) RF: 0 Senna-S 8.6-50 mg Tablet 2 tab PO BID PRN (Reason: Constipation) RF: 0 Vitamin C 500 mg Tablet 1,000 mg PO BID RF: 0 guaifenesin 400 mg Tablet 400 mg PO TID PRN (Reason: unknown) RF: 0 Lyrica 100 mg Capsule 100 mg PO BEDTIME RF: 0 Ensure Plus 0.05-1.5 gram-kcal/mL Liquid 1 ea PO BID RF: 0 ipratropium-albuterol 0.5 mg-3 mg(2.5 mg base)/3 mL Solution For Nebulization See Rx Instructions .ROUTE .COMPLEX PRN (Reason: shortness of breath) Qty: 0 RF: 0 Changed acetaminophen 500 mg Tablet 500 mg PO QID PRN (Reason: Pain) Qty: 0 RF: 0 Discontinued ipratropium-albuterol 20-100 mcg/actuation Mist 1 puff INHALATION QID MDD 6 PUFFS RF: 0 Discharge Orders: Discharge Order (Routine); Ordered 10/05/19 Ordered By: Gely Payne Other Ambulatory Orders: DME: Oxygen (Order) Location: None Selected Ordered By: Gely Payne Referrals: [facility] [Primary Care Provider] - 7-10 days (You have homecare help that comes to your home and this will take care of your hospital follow up.) Shade Donohue MD [Physician] - 7-10 days Rachna Guerra MD [Physician] - 2 weeks Discharge Diet: Usual diet Discharge Activity: Resume usual activity Patient Instructions: Diltiazem (By mouth), Levofloxacin (By mouth), Malnutrition (DC), Chronic Obstructive Pulmonary Disease (DC), COPD Stoplight Discharge Attestations Time Spent in Discharge Care*: greater than 30 min Status at Discharge: Cognitive status at discharge: cognitively intact, Behavioral status at discharge: cooperative and can be uncooperative, Quality Metrics Clinical Quality Measures During this hospital stay, did patient experience: None Coding Level of Care Code Acute Rn Navigator for Chg Fwd Diagnoses Falls frequently R29.6 Diarrhea R19.7 Diarrhea type: unspecified type Complicated UTI (urinary tract infection) N39.0 Self-catheterizes urinary bladder Z78.9 Dehydration E86.0 TYSON (acute kidney injury) N17.9 HTN (hypertension) I10 Hypertension type: essential hypertension COPD (chronic obstructive pulmonary disease) J44.9 COPD type: unspecified COPD Lumbar radiculopathy M54.16 Severe protein-energy malnutrition E43 Macrocytic anemia D53.9 Atrial fibrillation I48.91 Pulmonary edema J81.1
== END 2019-10-05 16:44 | disposition home or self-care (01) | DRG 391 ==
LOC: ER 14:20 → MEDSURG 16:08 → CSU 10-04 13:30
PROVIDERS: Hospitalist; Admitting Provider Student in an Organized Health Care Education/Training Program; Emergency Provider Emergency Medicine; Visit Provider Student in an Organized Health Care Education/Training Program
DX: K52.9 Noninfective gastroenteritis and colitis, unspecified (principal); E43 Unspecified severe protein-calorie malnutrition; Z68.1 Body mass index [BMI] 19.9 or less, adult; N17.9 Acute kidney failure, unspecified; N39.0 Urinary tract infection, site not specified; E86.0 Dehydration; I10 Essential (primary) hypertension; J44.9 Chronic obstructive pulmonary disease, unspecified; M54.16 Radiculopathy, lumbar region; I48.91 Unspecified atrial fibrillation; D53.9 Nutritional anemia, unspecified; Z91.81 History of falling; G89.29 Other chronic pain; K21.9 Gastro-esophageal reflux disease without esophagitis
CPT/HCPCS: 12345; 36415; 36416; 36600; 51702; 51798; 70450; 71045; 74176; 80048; 80051; 80053; 80061; 81001; 81003; 82274; 82810; 82962; 83540; 83550; 83605; 83630; 83735; 83986; 84100; 84145; 84443; 84484; 85025; 85378; 87040; 87077; 87086; 87186; 87493; 87506; 93005; 93306; 94640; 94664; 96372; 96375; 97110; 97116; 97162; 97530; 99283; G0378; J0131; J0696; J1160; J1650; J1756; J1940; J2930; J3475; J3480; J3490; J7030; J7050; J7611; J7626

== ENCOUNTER 2019-11-23 14:15 | Emergency (ER) | payer OTHER, MEDICARE, SELFPAY ==
[2019-11-23 14:24] VITALS: BP 98/56; PULSE 84; RESP 16; TEMP 36.6; O2SAT 96; BMI 15.7
--- NOTE | 2019-11-23 15:43 | ED_ITS ---
HPI - Male Genitourinary General: Chief complaint: Urogenital-Male Stated complaint: CHICAS CATH Time Seen by Provider: 11/23/19 15:40 History of Present Illness: HPI Narrative: Patient states while getting into his chair today he got his catheter bag tangled up in his wheelchair and accidentally removed his chronic indwelling Chicas. He contacted his home health agency who told him without an order to replace they could not reinsert his Chicas catheter. Patient presents to the ER for Chicas catheter replacement and evaluation of any injury related to his traumatic removal Complaint: penile discharge and genital injury Onset (ago): hour(s) Duration: improved Location: penis Severity scale (1-10): 2 Quality: dull Related Data: Sexually active: No Review of Systems : Reports: difficulty urinating and other (Accidental traumatic removal of indwelling cath, small amount of bleeding.) CR[facility]ICAL ACCESS H[facility]ITAL ED PFSH: Medical History (Updated 11/23/19 @ 16:04 by Eliane Marshall APRN) Ascending aortic aneurysm Bradycardia Chronic back pain Chronic neck pain Compression fracture of L1 lumbar vertebra COPD (chronic obstructive pulmonary disease) CVA (cerebral vascular accident) Cystitis with hematuria GERD (gastroesophageal reflux disease) HTN (hypertension) Macrocytic anemia Multilevel degenerative disc disease Self-catheterizes urinary bladder Spinal stenosis, site unspecified Urinary retention Surgical History H/O laminectomy L5-S1 HEMILANIECTOMIES H/O shoulder surgery H/O spinal fusion C5-C6 History of cystoscopy in 01/2019 -chronic inflammatory changes, bladder diverticuli Hx laparoscopic cholecystectomy S/P ureteral stent placement Family History Father CAD (coronary artery disease) Social History Smoking and tobacco status: current every day smoker cigarettes Packs smoked per day: 1 Alcohol intake: never Lives independently: Yes Marital status: Current occupational status: disabled Current gender identity: Male Physical Exam Const: COMMON NORMALS: no acute distress, patient oriented x3 and alert GENERAL APPEARANCE: cooperative and well kempt HENMT: COMMON NORMALS: normocephalic and atraumatic HEAD & SCALP: normocephalic and atraumatic MOUTH: Normal oral and palatal mucosa present Eye: COMMON NORMALS: Equal, round and reactive pupils present GENERAL EYE: appearance normal, both eyes and all related structures PUPIL: Yes Equal, round and reactive pupils present and Yes Pupil accommodation reflex normal Neck/C-Spine: COMMON NORMALS: full ROM, no lymphadenopathy, supple, no JVD and No carotid bruits Lymph: LYMPHATIC: no lymphadenopathy noted Chest: CHEST: Yes Symmetrical chest wall rise Resp: COMMON NORMALS: normal respiratory effort and clear to auscultation bilaterally EFFORT & INSPECTION: Yes able to speak in complete sentences AUSCULTATION: clear to auscultation bilaterally Cardio: COMMON NORMALS: no JVD, regular rhythm and No murmurs present (Cardio) PALPATION: normal PMI RHYTHM: regular rhythm GI: COMMON NORMALS: non-tender, no masses and no bruits INSPECTION: Yes normal to inspection, No scar and No striae AUSCULTATION: Yes normoactive bowel sounds PALPATION: No Tenderness to palpation present (GI), No Guarding due to palpation present (GI), No Rigid due to palpation, No Hernia present and No Rebound tenderness present PERCUSSION: normal to percussion : MALE GROIN/PERINEUM EXAM: Yes edema (Very minimal swelling to penis ) PENIS: normal penis and uncircumcised MEATUS: Blood at meatus present (small amount. ) Back/Pelvis: GENERAL BACK: No swelling and No tenderness THORACIC SPINE/UPPER BACK: No pain with ROM Extremity: COMMON NORMALS: normal to inspection, no clubbing, cyanosis or edema and no calf tenderness Neuro: COMMON NORMALS: patient oriented x3 and moves all extremities SENSORIUM/ORIENTATION: Yes alert CRANIAL NERVES: Yes CN normal except as noted GAIT: Yes Normal gait present MOTOR EXAM: 5/5 motor strength present throughout Psych: COMMON NORMALS: mental status grossly normal APPEARANCE: Yes well kempt Skin: COMMON NORMALS: turgor normal NARRATIVE SKIN EXAM: Normal coloration of skin GENERAL SKIN EXAM: turgor normal LESIONS: no lesions RASHES: no rashes TRAUMA: no lacerations or abrasions Course ED course: Will replace Chicas and ensure that it is draining properly. Will secure with leg strap encourage patient to use caution when transferring from wheelchair to chair. Vital Signs: Vital signs: Vital Signs Temperature 97.9 F 11/23/19 14:24 Pulse Rate 84 11/23/19 14:24 Respiratory Rate 16 11/23/19 14:24 Blood Pressure 98/56 11/23/19 14:24 Pulse Oximetry 96 11/23/19 14:24 Discharge Plan Discharge Patient Disposition: Home Clinical Impression: Indwelling urinary catheter fell out, Urinary retention Condition: Stable Prescriptions: No Action methenamine hippurate 1 gram tablet 1 gm PO BID Qty: 60 RF: 12 bisacodyl 5 mg tablet 5 mg PO DAILY PRN (Reason: constipation) Qty: 30 RF: 0 tamsulosin [Flomax] 0.4 mg Capsule 0.8 mg PO QPM RF: 0 omeprazole 20 mg Capsule,Delayed Release(Dr/Ec) 20 mg PO BID RF: 0 fluoxetine [Prozac] 20 mg Capsule 60 mg PO DAILY RF: 0 Eucerin Cream 1 applic TOPICAL DAILY PRN (Reason: Dry Skin) RF: 0 Senna-S 8.6-50 mg Tablet 2 tab PO BID PRN (Reason: Constipation) RF: 0 Vitamin C 500 mg Tablet 1,000 mg PO BID RF: 0 guaifenesin 400 mg Tablet 400 mg PO TID PRN (Reason: unknown) RF: 0 Lyrica 100 mg Capsule 100 mg PO BEDTIME RF: 0 Ensure Plus 0.05-1.5 gram-kcal/mL Liquid 1 ea PO BID RF: 0 acetaminophen 500 mg Tablet 500 mg PO QID PRN (Reason: Pain) Qty: 0 RF: 0 Cardizem CD 180 mg capsule,extended release 24hr 180 mg PO Q24H Qty: 30 RF: 1 Advair HFA 115-21 mcg/actuation HFA aerosol inhaler 2 inh INHALATION Q12H Qty: 8 RF: 1 Spiriva with HandiHaler 18 mcg capsule, w/inhalation device 1 cap INHALATION DAILY Qty: 30 RF: 0 ipratropium-albuterol 0.5 mg-3 mg(2.5 mg base)/3 mL Solution For Nebulization See Rx Instructions .ROUTE .COMPLEX PRN (Reason: shortness of breath) Qty: 0 RF: 0 Discharge Orders: Discharge Order (Routine); Ordered 11/23/19 Ordered By: Eliane Marshall Referrals: [facility] [Primary Care Provider] - Discharge Diet: Usual diet Discharge Activity: Resume usual activity Coding Level of Care Code ED Hogshead Dumper for Chg Fwd Exam Comprehensive
== END 2019-11-23 16:42 | disposition home or self-care (01) ==
PROVIDERS: Emergency Provider Nurse Practitioner Family
DX: T83.098A Other mechanical complication of other urinary catheter, initial encounter (principal); R33.9 Retention of urine, unspecified; J44.9 Chronic obstructive pulmonary disease, unspecified; Z86.73 Personal history of transient ischemic attack (TIA), and cerebral infarction without residual deficits; I10 Essential (primary) hypertension; F17.210 Nicotine dependence, cigarettes, uncomplicated
CPT/HCPCS: 12345; 51702; 99283

== ENCOUNTER → 2019-11-26 08:28 | Outpatient (BNVA) | payer OTHER, MEDICARE, SELFPAY | PROVIDERS: Visit Provider Internal Medicine | DX: Z01.812 Encounter for preprocedural laboratory examination (principal) | CPT/HCPCS: 87635 ==

== ENCOUNTER 2019-11-28 11:12 | Day surgery (SDC) | payer OTHER, MEDICARE, SELFPAY ==
[2019-11-27 11:30] VITALS: BMI 15.7
[2019-11-28] VITALS (7 sets, daily range): BP systolic 129–143; BP diastolic 67–97; PULSE 67–122; RESP 16–25; TEMP 36.3–36.7; O2SAT 95–100
[2019-11-28 10:06] LABS: Basophils % 0.4 %; Eosinophils # 0.3 10^3/uL (0.0-0.8); Eosinophils % 2.9 %; Hematocrit 39.1 % (42.0-52.0); Hemoglobin 12.7 g/dL (11.7-16.6); Lymphocytes # 1.3 10^3/uL (0.8-4.8); Mean Corpuscular HGB Conc 32.5 g/dL (30.0-36.0); Mean Corpuscular Hemoglobin 32.2 pg (28.0-34.0); Mean Corpuscular Volume 99.2 fL (80-94); Mean Platelet Volume 10.2 fL (7.4-10.4); Monocytes # 0.6 10^3/uL (0.2-0.9); Neutrophils # 7.17 10^3/uL (1.8-7.7); Neutrophils % 76.3 %; Nucleated Red Blood Cells % 0 %; Platelet Count 348 10^3/cmm (130-400); Red Blood Count 3.94 10^6/uL (4.1-5.3); Red Cell Distribution Width 14.6 % (12.1-15.1); White Blood Count 9.4 10^3/uL (4.0-10.0)
[2019-11-28] MEDS: sodium chloride 0.9% 1,000 ML 30 ML IV (10:15)
--- NOTE | 2019-11-28 10:24 | ANES.PREANE2 ---
Pre-Anesthetic Assessment Pre-Anesthetic Assessment: Height/Weight: Height 1.79 m Weight 53.524 kg Preop Diagnosis: Chronic urinary retention Proposed Procedure: Operation Date: 11/28/19 11:00 Proposed Procedures p Cystoscopy 01790 N30.90 R33.9(Not Applicable) - Shade Donohue MD s Placement of suprapubic tube percutaneously(Not Applicable) - Shade Donohue MD Familial anesthetic complications: none Was Beta Elder taken within 24 hours: N/A Last intake: Intake Last Liquid Date 11/27/19 Last Liquid Time 18:00 Last Solid Date 11/27/19 Last Solid Time 18:00 Social: Social History: Tobacco Exam: Pre-Anes Outpt Exam: alert, oriented x 3, clear to auscultation bilaterally and regular rate & rhythm Airway: MP: 2 Dentition: Chipped Additional comments: [place] Pulmonary: Pulmonary: COPD CV/HEM: CV/HEM: Afib GI: GI: GERD Metabolic: Comments: protein-energy malnutrition (underweight) Anesthetic Plan: ASA status: 3 Anesthesia: General Risk of > 500 ml blood loss (7ml/kg in children): No Meds/Allergies Current Medications: Current Medications Generic Name Dose Route Start Last Admin Trade Name Freq PRN Reason Stop Dose Admin Sodium Chloride 1,000 mls @ 30 ml s/hr 11/28/19 10:15 11/28/19 10:15 Sodium Chloride 0.9% IV 30 mls/hr .Q24H LATONYA Administration PFSH Anesthesia PFSH: Medical History Ascending aortic aneurysm Bradycardia Chronic back pain Chronic neck pain Compression fracture of L1 lumbar vertebra COPD (chronic obstructive pulmonary disease) CVA (cerebral vascular accident) Cystitis with hematuria GERD (gastroesophageal reflux disease) HTN (hypertension) Macrocytic anemia Multilevel degenerative disc disease Self-catheterizes urinary bladder Spinal stenosis, site unspecified Urinary retention Surgical History H/O laminectomy L5-S1 HEMILANIECTOMIES H/O shoulder surgery H/O spinal fusion C5-C6 History of cystoscopy in 01/2019 -chronic inflammatory changes, bladder diverticuli Hx laparoscopic cholecystectomy S/P ureteral stent placement Family History Father CAD (coronary artery disease) Social History Smoking and tobacco status: current every day smoker cigarettes Packs smoked per day: 1 Alcohol intake: never Lives independently: Yes Marital status: Current occupational status: disabled Current gender identity: Male Data Anesthesia CBC & Chem 7: 11/28/19 09:57 11/28/19 09:57 Other Labs: Laboratory Results - last 48 hr 11/28/19 09:57 WBC 9.4 RBC 3.94 L Hgb 12.7 Hct 39.1 L MCV 99.2 H MCH 32.2 MCHC 32.5 RDW 14.6 Plt Count 348 MPV 10.2 Neut % (Auto) 76.3 Lymph % (Auto) 14.0 [place] % (Auto) 6.0 Eos % (Auto) 2.9 Baso % (Auto) 0.4 Neut # (Auto) 7.17 Lymph # (Auto) 1.3 [place] # (Auto) 0.6 Eos # (Auto) 0.3 Baso # (Auto) 0.0 Nucleated RBC % (auto) 0 Nucleated RBCs # 0.0 Cardiac Studies: No Data to Display
[2019-11-28 10:29] LABS: Alanine Aminotransferase 9 U/L (0-41); Albumin Level 3.8 g/dL (3.5-5.2); Alkaline Phosphatase 79 IU/L (40-130); Aspartate Amino Transferase 9 U/L (0-40); Blood Urea Nitrogen 11 mg/dL (8-23); Calcium 9.1 mg/dL (8.5-10.5); Carbon Dioxide 30 mmol/L (22-29); Chloride 101 mmol/L (98-107); Globulin 3.6 g/dL (1.3-4.6); Glucose 91 mg/dL (65-115); Osmolality Calculated 284 mOsm/kg (285-295); Sodium 139 mmol/L (136-145); Total Bilirubin 0.2 mg/dL (0.15-1.2); Total Protein 7.4 g/dL (6.6-8.7)
--- NOTE | 2019-11-28 11:43 | W.PM.OPSUD ---
Surgery/Procedure H&P Update DATE OF PROCEDURE: November 28, 2019 DATE H&P PERFORMED: 11/24/19 H&P UPDATE INFORMATION: I have reviewed H&P completed within last 30 days, I have examined patient prior to procedure, No changes to prior documentation and H&P is in [facility] EMR on date indicated PREOP DIAGNOSIS: Chronic urinary retention PLANNED PROCEDURE: Operation Date: 11/28/19 11:00 Proposed Procedures p Cystoscopy 62328 N30.90 R33.9(Not Applicable) - Shade Donohue MD s Placement of suprapubic tube percutaneously(Not Applicable) - Shade Donohue MD
[2019-11-28] MEDS: neomycin-poly-bacitracin oint 28 gm 1 APPLIC TOPICAL (12:32)
--- NOTE | 2019-11-28 12:47 | SUR.PHASEI ---
1244 PATIENT TO PACU FROM OR. RR EVEN AND UNLABORED. ORAL AIRWAY IN PLACE. SPO2 100% ON SIMPLE MASK AT 8L. SUPERPUBIC CHICAS IN PLACE, DRESSING CDI.
--- NOTE | 2019-11-28 12:58 | P.OP_ITS ---
Operative Report Date of procedure: November 28, 2019 Pre-op Diagnosis: Chronic urinary retention Procedure Done: Cystoscopy suprapubic tube placement percutaneous Pathology: none sent Surgeon: Charanjit Anesthesia: General Estimated blood loss: Less than 30 cc Urine output: Not measured Complications: None Findings: 14 Marshallese catheter placed through 16 Marshallese introduction sheath Condition: stable Disposition: PACU Brief History: 74-year-old white male with chronic urinary tension secondary to neurogenic bladder and chronic urethral Lowery catheter. Complained of penile pain. Requested suprapubic tube. No contraindications Procedure: After routine preoperative evaluation examination and obtaining of informed consent he was taken to the operating suite on 11/28/2019 where general anesthesia was administered without difficulty after appropriate timeout was performed, SCDs confirmed to be functioning, preoperative antibiotics administered, beta-tom protocol confirmed. Prepped and draped in usual sterile fashion in dorsolithotomy position pain careful attention to voiding pressure points. 21 Marshallese cystoscope with 30 degree lens was introduced to the urethral meatus and advanced into the bladder under videoscopy. 30 and 70 degree lenses were used to examine the bladder. The bladder had good capacity. 3 fingerbreadths above the symphysis pubis the bladder was located with a spinal needle under cystoscopic guidance. A puncture incision was made at the site after appropriate positioning confirmed. A 16 Marshallese suprapubic sheath was then advanced under cystoscopic guidance with trocar in place into the bladder. No difficulty passing the trocar. The trocar was removed and a 14 Marshallese catheter was passed through the 16 Marshallese sheath into the bladder. The balloon was inflated and confirmed to be functi oning and the sheath was removed by peel-away action. The bladder was inspected and there was a small area of bleeding from over distention of the bladder and this was fulgurated with complete hemostasis. Catheter was irrigated and confirmed to be working. Procedure completed. Tolerated procedure well without complications and was awakened in the operating room and returned recovery in stable condition. PLANS: 1. Follow-up in 6 weeks for first suprapubic tube change to 16 or 18 Marshallese.
--- NOTE | 2019-11-28 13:01 | SUR.PHASEI ---
1253 ORAL AIRWAY REMOVED. SPO2 100% ON SIMPLE MASK AT 8L.
--- NOTE | 2019-11-28 13:10 | PM.PACU ---
PACU note Post-Anesthesia Exam: awake and vital signs stable Disposition: admitted
--- NOTE | 2019-11-28 13:10 | SUR.PHASEI ---
3347 PATIENT TO OPS. DENIES PAIN. CATH IN PLACE SECURED TO RIGHT LEG.
--- NOTE | 2019-11-28 14:00 | ANE.PACU2 ---
Inpatient post-anesthesia follow up: Airway intact: Yes Vital signs: Temperature 98.1 F Pulse Rate 67 Respiratory Rate 18 Blood Pressure 135/82 Pulse Oximetry 95 Oxygen Delivery Me thod Room Air Oxygen Flow Rate 8 Fraction of Inspir ed Oxygen Hydration adequate: Yes Nausea and vomiting: No Pain level: 1 Mental status: Baseline
== END 2019-11-28 14:20 | disposition home or self-care (01) ==
PROVIDERS: Anesthesiology; PCP Emergency Medicine Emergency Medical Services; Visit Provider Urology
PROC: 0TJB8ZZ Inspection of Bladder, Via Natural or Artificial Opening Endoscopic (ICD-10-PCS; CPT 52000; principal; 2019-11-28 11:00)
PROC: (CPT 51102; 2019-11-28 11:00)
DX: R33.9 Retention of urine, unspecified (principal); N31.9 Neuromuscular dysfunction of bladder, unspecified; N48.89 Other specified disorders of penis; N30.90 Cystitis, unspecified without hematuria; J44.9 Chronic obstructive pulmonary disease, unspecified; I48.91 Unspecified atrial fibrillation; K21.9 Gastro-esophageal reflux disease without esophagitis; Z88.5 Allergy status to narcotic agent; F17.210 Nicotine dependence, cigarettes, uncomplicated
CPT/HCPCS: 51102; 12345; 36415; 80053; 85025; J2704; J3010; J3490; J7030

== ENCOUNTER 2020-02-06 13:14 | Emergency (ER) | payer OTHER, MEDICARE, SELFPAY ==
[2020-02-06 13:19] VITALS: BP 142/79; PULSE 97; RESP 16; TEMP 36.4; O2SAT 99; BMI 16.3
--- NOTE | 2020-02-06 13:28 | ED_ITS ---
HPI - Male Genitourinary General: Chief complaint: Urogenital-Male Stated complaint: suprapubic catheter leaking Time Seen by Provider: 02/06/20 13:17 Source: patient and EMS Mode of arrival: EMS Limitations: no limitations History of Present Illness: HPI Narrative: 74-year-old male who has a history of suprapubic cath states he had a new one placed earlier this month. He states he has had some drainage around it and believes it may be blocked. He denies any pain. Denies any fever. Denies any worsening or improving factors. Associated symptoms: Deny dysuria, nausea or vomiting Review of Systems Const: Denies: fever(s), chills, body aches or change in appetite Eyes: Denies: blurry vision or eye discomfort ENMT: Denies: throat pain or dental pain Card: Denies: chest pain Resp: Denies: dyspnea GI: Denies: abdominal pain, nausea, vomiting or diarrhea : Denies: dysuria Musc: Denies: neck pain or back pain Skin/Breast: Denies: rash Neuro: Denies: headache(s) Psych: Denies: depression Tae/Lymph: Denies: easy bruising All/Imm: Denies: urticaria PFSH ED PFSH: Medical History (Updated 02/06/20 @ 14:24 by Evin Arias MD) Ascending aortic aneurysm Bradycardia Chronic back pain Chronic neck pain Compression fracture of L1 lumbar vertebra COPD (chronic obstructive pulmonary disease) CVA (cerebral vascular accident) Cystitis with hematuria GERD (gastroesophageal reflux disease) HTN (hypertension) Macrocytic anemia Multilevel degenerative disc disease Self-catheterizes urinary bladder Spinal stenosis, site unspecified Urinary retention Surgical History H/O laminectomy L5-S1 HEMILANIECTOMIES H/O shoulder surgery H/O spinal fusion C5-C6 History of cystoscopy in 01/2019 -chronic inflammatory changes, bladder diverticuli Hx laparoscopic cholecystectomy S/P ureteral stent placement Family History Father CAD (coronary artery disease) Social History (Updated 02/06/20 @ 13:28 by John Paul Cha RN) Smoking and tobacco status: current every day smoker cigarettes Packs smoked per day: 1 Years cigarettes smoked: 60 Quit status (tobacco): not considering quitting Second hand smoke exposure: Yes Smoking risk assessment/counseling performed?: Yes Alcohol intake: never Substance/Drug Use: never Caregiver/support person: Yes Lives independently: Yes Household members: none Marital status: service: Yes Current occupational status: disabled History of recent travel: No Current gender identity: Male Physical Exam Const: COMMON NORMALS: no acute distress, patient oriented x3 and healthy appearing HENMT: COMMON NORMALS: normocephalic and atraumatic HEAD & SCALP: normocephalic and atraumatic Eye: COMMON NORMALS: Equal, round and reactive pupils present and EOMs intact bilaterally PUPIL: Yes Equal, round and reactive pupils present Neck/C-Spine: COMMON NORMALS: full ROM and supple Chest: COMMONS NORMALS: normal inspection of the chest and normal palpation of entire chest wall Resp: COMMON NORMALS: normal respiratory effort, No retractions, No use of accessory muscles and clear to auscultation bilaterally AUSCULTATION: clear to auscultation bilaterally Cardio: COMMON NORMALS: regular rate, regular rhythm and No murmurs present (Cardio) RATE: regular rate RHYTHM: regular rhythm GI: COMMON NORMALS: Normal to inspection, nondistended, normoactive bowel sounds present, Soft to palpation, non-tender and no masses PALPATION: Yes Soft to palpation OTHER: Suprapubic catheter in place with no drainage around it Extremity: COMMON NORMALS: normal to inspection and full ROM Neuro: COMMON NORMALS: patient oriented x3, moves all extremities and no focal motor deficits Psych: COMMON NORMALS: mental status grossly normal, Normal thought process present and cooperative THOUGHT PROCESS: Normal thought process present Skin: COMMON NORMALS: no rashes or lesions noted and no wounds GENERAL SKIN EXAM: no rashes or lesions noted Course Vital Signs: Vital signs: Vital Signs Temperature 97.6 F 02/06/20 13:19 Pulse Rate 97 02/06/20 13:19 Respiratory Rate 16 02/06/20 13:19 Blood Pressure 142/79 02/06/20 13:19 Pulse Oximetry 99 02/06/20 13:19 MDM - Male MDM Narrative: Medical decision making narrative: Patient presents with a blocked suprapubic catheter. I did replace it with an 18 Sami catheter and is draining and is well-appearing. Will discharge him he is to follow-up with Charanjit. Discharge Plan Discharge Patient Disposition: Home Clinical Impression: Blocked suprapubic catheter Qualifiers: Encounter type: initial encounter Qualified Code(s): T83.090A - Other mechanical complication of cystostomy catheter, initial encounter Condition: Stable Prescriptions: No Action methenamine hippurate 1 gram tablet 1 gm PO BID Qty: 60 RF: 12 Trelegy Ellipta 100-62.5-25 mcg blister with device 1 inh INHALATION Q24H 30 Days Qty: 60 RF: 3 bisacodyl 5 mg tablet 5 mg PO DAILY PRN (Reason: constipation) Qty: 30 RF: 0 tamsulosin [Flomax] 0.4 mg Capsule 0.8 mg PO QPM RF: 0 omeprazole 20 mg Capsule,Delayed Release(Dr/Ec) 20 mg PO BID RF: 0 fluoxetine [Prozac] 20 mg Capsule 60 mg PO DAILY RF: 0 Eucerin Cream 1 applic TOPICAL DAILY PRN (Reason: Dry Skin) RF: 0 sennosides-docusate sodium [Senna-S] 8.6-50 mg Tablet 2 tab PO BID PRN (Reason: Constipation) RF: 0 ascorbic acid (vitamin C) [Vitamin C] 500 mg Tablet 1,000 mg PO BID RF: 0 guaifenesin 400 mg Tablet 400 mg PO TID PRN (Reason: cough) RF: 0 pregabalin [Lyrica] 100 mg Capsule 100 mg PO BEDTIME RF: 0 Ensure Plus 0.05-1.5 gram-kcal/mL Liquid 1 ea PO BID RF: 0 acetaminophen 500 mg Tablet 500 mg PO QID PRN (Reason: Pain) Qty: 0 RF: 0 diltiazem HCl [Cardizem CD] 180 mg capsule,extended release 24hr 180 mg PO Q24H Qty: 30 RF: 1 Advair HFA 115-21 mcg/actuation HFA aerosol inhaler 2 inh INHALATION Q12H Qty: 8 RF: 1 Spiriva with HandiHaler 18 mcg capsule, w/inhalation device 1 cap INHALATION DAILY Qty: 30 RF: 0 ipratropium-albuterol 0.5 mg-3 mg(2.5 mg base)/3 mL Solution For Nebulization See Rx Instructions .ROUTE .COMPLEX PRN (Reason: shortness of breath) Qty: 0 RF: 0 Discharge Orders: Discharge Order (Routine); Ordered 11/13/20 Ordered By: Evin rAias Referrals: Shade Donohue MD [Physician] - 1-3 days Jose De Jesus Villa DO [Primary Care Provider] - Discharge Diet: Advance as tolerated Discharge Activity: Resume usual activity Patient Instructions: How to Care for Your Suprapubic Catheter (ED) Coding Level of Care Code ED Staff Services Manager for Chg Fwd Exam Comprehensive
--- NOTE | 2020-02-06 14:45 | PC.NURSE ---
Suprapubic catheter removed and a large amount of urine drained from site. New catheter placed at this time by Dr. Arias. 16fr catheter placed. 400ml urine output obtained in catheter bag.
[2020-02-06 16:07] VITALS: BP 133/70; PULSE 62; RESP 18; O2SAT 99
== END 2020-02-06 15:45 | disposition home or self-care (01) ==
PROVIDERS: Emergency Provider Emergency Medicine; PCP Emergency Medicine Emergency Medical Services
DX: T83.090A Other mechanical complication of cystostomy catheter, initial encounter (principal); J44.9 Chronic obstructive pulmonary disease, unspecified; Z86.73 Personal history of transient ischemic attack (TIA), and cerebral infarction without residual deficits; I10 Essential (primary) hypertension; F17.210 Nicotine dependence, cigarettes, uncomplicated
CPT/HCPCS: 12345; 99283

== ENCOUNTER 2020-11-24 17:50 | Emergency (ER) | payer OTHER, MEDICARE, SELFPAY ==
--- NOTE | 2020-11-24 17:52 | ED_ITS ---
Documented by User: Gerry Sanchez MD 11/27/20 00:31 HPI - Altered Mental Status General: Chief Complaint: Psychiatric Symptoms Stated Complaint: 96 HR HOLD Time Seen by Provider: 11/24/20 17:52 History of Present Illness: HPI narrative: Mr. Herrera is a 75-year-old gentleman with significant past medical history of COPD, atrial fibrillation, and chronic suprapubic catheter presents to the emergency department via law enforcement for psychiatric evaluation. The patient is placed on a 96-hour hold. He reports that he just got frustrated earlier regarding an issue with [facility]. Since that time he has calmed down however reportedly he was threatening to shoot himself and others and has access to firearms. He otherwise denies medical complaints. His catheter which was changed approximately 1 week ago. No other new, exacerbating, alleviating, or provoking factors reported. Review of Systems General: Reports: 10 or more systems reviewed and unremarkable except in HPI and below Narrative: CONSTITUTIONAL: denies fever, fatigue, weakness EYES - denies pain, denies loss of vision EARS - denies ear issues. NOSE - denies congestion or rhinorrhea. THROAT - denies sore throat or difficulty swallowing. CARDIOVASCULAR - denies chest pain and palpitations RESPIRATORY - denies shortness of breath and cough GASTROINTESTINAL - denies abdominal pain, no nausea vomiting, no changes in bowel habits GENITOURINARY - denies dysuria or urinary frequency MUSCULOSKELETAL- denies deformity or pain SKIN - denies rashes or new changed skin lesions NEUROLOGIC - denies focal weakness or sensory changes HEMATOLOGIC/LYMPHATIC - denies easy bruising or lymphadenopathy. [facility] ED PFSH: Medical History Ascending aortic aneurysm Bradycardia Chronic back pain Chronic neck pain Compression fracture of L1 lumbar vertebra COPD (chronic obstructive pulmonary disease) CVA (cerebral vascular accident) Cystitis with hematuria GERD (gastroesophageal reflux disease) HTN (hypertension) Macrocytic anemia Multilevel degenerative disc disease Self-catheterizes urinary bladder Spinal stenosis, site unspecified Urinary retention Surgical History H/O laminectomy L5-S1 HEMILANIECTOMIES H/O shoulder surgery H/O spinal fusion C5-C6 History of cystoscopy in 01/2019 -chronic inflammatory changes, bladder diverticuli Hx laparoscopic cholecystectomy S/P ureteral stent placement Family History Father CAD (coronary artery disease) Social History Smoking and tobacco status: current every day smoker cigarettes Packs smoked per day: 1 Years cigarettes smoked: 60 Quit status (tobacco): not considering quitting Second hand smoke exposure: Yes Smoking risk assessment/counseling performed?: Yes Alcohol intake: never Caregiver/support person: Yes Lives independently: Yes Household members: none Marital status: service: Yes Current occupational status: disabled History of recent travel: No Current gender identity: Male Physical Exam Narrative: EXAM NARRATIVE: GENERAL/CONSTITUTIONAL -well appearing. No acute distress. Calm and cooperative Eyes - PERRL, no conjunctival injection ENMT - Atraumatic external nose and ears. Moist mucous membranes NECK - supple. trachea midline CARDIOVASCULAR - regular rate and rhythm. Peripheral pulses 2+ and equal RESPIRATORY -clear to auscultation bilaterally. No retractions or accessory muscle use. ABDOMEN/GI - Nontender, Nondistended. No tenderness to percussion or evidence of peritonitis MSK - Extremities without obvious deformity or tenderness to palpation SKIN - Warm, Dry NEURO - alert and appropriately oriented. strength and sensation intact. Moves all extremities equally. PSYCH - Appropriate mood and affect. fair insight into the severity of actions Course ED course: - Patient was seen and evaluated by me at bedside - Patient placed on cardiac monitors, IV access obtained - Initial evaluation notable for no acute distress, nontoxic .- Labs notable for No acute abnormality to explain patient's symptoms. Urinalysis difficult to interpret in the context of suprapubic catheter. High probability of colonization. Pro-Daniel is negative. Will send for culture. Seems unlikely to be source of mental status changes. No acute intracranial process - Imaging notable for no acute intracranial abnormality to explain behavior change. - Upon serial reexamination after treatment the patient was similar - Patient on 96 hr hold by law enforcement. Based on ED evaluation to this point there is no obvious condition that would preclude patient from inpatient management at geriatric psych facility - Patient handed off to overnight physician pending placement. Vital Signs: Vital signs: Vital Signs Temperature 97.6 F 11/24/20 17:55 Pulse Rate 73 11/26/20 10:39 Respiratory Rate 17 11/26/20 10:39 Blood Pressure 131/73 11/26/20 10:39 Pulse Oximetry 99 11/26/20 10:39 MDM - Altered Mental Status Medical Records: Attestation: I reviewed the patient's medical records. Lab Data: Attestation: I reviewed the patient's lab results. Labs: Lab Results 11/24/20 11/24/20 11/24/20 Range/Units 19:10 19:10 19:10 WBC 10.4 H (4.0-10.0) 10^3/ uL RBC 3.40 L (4.1-5.3) 10^6/u L Hgb 11.5 L (11.7-16.6) g/dL Hct 34.8 L (42.0-52.0) % MCV 102.4 H (80-94) fl MCH 33.8 (28.0-34.0) pg MCHC 33.0 (30.0-36.0) g/dL RDW 14.6 (12.1-15.1) % Plt Count 237 (130-400) 10^3/c mm MPV 10.5 H (7.4-10.4) fL Neut % (Auto) 69.1 % Lymph % (Auto) 16.5 % [place] % (Auto) 8.6 % Eos % (Auto) 5.0 % Baso % (Auto) 0.3 % Neut # (Auto) 7.19 (1.8-7.7) 10^3/u L Lymph # (Auto) 1.7 (0.8-4.8) 10^3/u L [place] # (Auto) 0.9 (0.2-0.9) 10^3/u L Eos # (Auto) 0.5 (0.0-0.8) 10^3/u L Baso # (Auto) 0.0 (0.0-0.1) 10^3/u L Nucleated RBC % (a uto) 0 % Nucleated RBCs # 0.0 /100WBC Sodium 138 (136-145) mmol/L Potassium 3.8 (3.5-5.1) mmol/L Chloride 101 (98-107) mmol/L Carbon Dioxide 28 (22-29) mmol/L Anion Gap 12.8 (5-19) BUN 11 (8-23) mg/dL Creatinine 0.9 (0.7-1.2) mg/dL GFR Calculation Not Reportable Glucose 80 (65-115) mg/dL Calculated Osmolal ity 284 L (285-295) mOsm/k g Calcium 8.8 (8.5-10.5) mg/dL Total Bilirubin 0.2 (0.15-1.2) mg/dL AST 9 (0-40) U/L ALT 8 (0-41) U/L Alkaline Phosphata se 82 (40-130) IU/L Total Protein 6.3 L (6.6-8.7) g/dL Albumin 3.6 (3.5-5.2) g/dL Globulin 2.7 (1.3-4.6) g/dL Procalcitonin 0.04 (0-0.5) ng/mL TSH 2.06 (0.27-4.20) uIU/ mL Urine Color (Yellow) Urine Appearance (CLEAR) Urine pH (5-7) Ur Specific Gravit y (1.005-1.030) Urine Protein (Negative) Urine Glucose (UA) (Normal) Urine Ketones (Negative) Urine Blood (Negative) Urine Nitrate (Negative) Urine Bilirubin (Negative) Prot Sulfosalicyli c Acd (Negative) Urine Urobilinogen (Negative) mg/dL Ur Leukocyte Grace ase (Negative) Urine RBC (0-2) /hpf Urine WBC (0-5) /hpf Ur Squamous Epith Cells (0-5) /hpf Amorphous Sediment Urine Bacteria (NONE) /hpf Salicylates < 0.3 L (3-10) mg/dL Urine Opiates Scre en (Negative) ng/mL Acetaminophen < 5.0 L (10-30) ug/mL Ur Barbiturates Sc reen (Negative) ng/mL Ur Phencyclidine S crn (Negative) ng/mL Ur Amphetamines Sc reen (Negative) ng/mL U Benzodiazepines Scrn (Negative) ng/mL Urine Cocaine Scre en (Negative) ng/mL U Marijuana (THC) Screen (Negative) ng/mL SARS-CoV-2 Ag (Rap id) (Negative) 11/24/20 11/24/20 11/24/20 Range/Units 19:30 19:30 22:00 WBC (4.0-10.0) 10^3/ uL RBC (4.1-5.3) 10^6/u L Hgb (11.7-16.6) g/dL Hct (42.0-52.0) % MCV (80-94) fl MCH (28.0-34.0) pg MCHC (30.0-36.0) g/dL RDW (12.1-15.1) % Plt Count (130-400) 10^3/c mm MPV (7.4-10.4) fL Neut % (Auto) % Lymph % (Auto) % [place] % (Auto) % Eos % (Auto) % Baso % (Auto) % Neut # (Auto) (1.8-7.7) 10^3/u L Lymph # (Auto) (0.8-4.8) 10^3/u L [place] # (Auto) (0.2-0.9) 10^3/u L Eos # (Auto) (0.0-0.8) 10^3/u L Baso # (Auto) (0.0-0.1) 10^3/u L Nucleated RBC % (a uto) % Nucleated RBCs # /100WBC Sodium (136-145) mmol/L Potassium (3.5-5.1) mmol/L Chloride (98-107) mmol/L Carbon Dioxide (22-29) mmol/L Anion Gap (5-19) BUN (8-23) mg/dL Creatinine (0.7-1.2) mg/dL GFR Calculation Glucose (65-115) mg/dL Calculated Osmolal ity (285-295) mOsm/k g Calcium (8.5-10.5) mg/dL Total Bilirubin (0.15-1.2) mg/dL AST (0-40) U/L ALT (0-41) U/L Alkaline Phosphata se (40-130) IU/L Total Protein (6.6-8.7) g/dL Albumin (3.5-5.2) g/dL Globulin (1.3-4.6) g/dL Procalcitonin (0-0.5) ng/mL TSH (0.27-4.20) uIU/ mL Urine Color Yellow (Yellow) Urine Appearance Clear (CLEAR) Urine pH 8 H (5-7) Ur Specific Gravit y 1.005 (1.005-1.030) Urine Protein Neg (Negative) Urine Glucose (UA) Norm (Normal) Urine Ketones Negative (Negative) Urine Blood 2+ H (Negative) Urine Nitrate Positive H (Negative) Urine Bilirubin Neg (Negative) Prot Sulfosalicyli c Acd Negative (Negative) Urine Urobilinogen Neg (Negative) mg/dL Ur Leukocyte Grace ase 2+ H (Negative) Urine RBC 5-10 H (0-2) /hpf Urine WBC 0-4 H (0-5) /hpf Ur Squamous Epith Cells 0-4 H (0-5) /hpf Amorphous Sediment Not Reportable Urine Bacteria 2+ H (NONE) /hpf Salicylates (3-10) mg/dL Urine Opiates Scre en Negative (Negative) ng/mL Acetaminophen (10-30) ug/mL Ur Barbiturates Sc reen Negative (Negative) ng/mL Ur Phencyclidine S crn Negative (Negative) ng/mL Ur Amphetamines Sc reen Negative (Negative) ng/mL U Benzodiazepines Scrn Positive H (Negative) ng/mL Urine Cocaine Scre en Negative (Negative) ng/mL U Marijuana (THC) Screen Negative (Negative) ng/mL SARS-CoV-2 Ag (Rap id) Negative (Negative) EKG Data^: EKG 1: Attestation: I personally reviewed and interpreted this EKG as follows: EKG interpretation date: 11/24/20 EKG interpretation time: 18:20 Interpretation: Twelve-lead EKG shows a regular sinus rhythm at rate 59. ND interval 204, QRS duration 106, QTc 428. Normal axis. Interpretation: Sinus bradycardia. 1st degree AV block Discharge Plan Discharge Condition: Stable Prescriptions: No Action methenamine hippurate 1 gram tablet 1 gm PO BID Qty: 60 RF: 12 Asmanex HFA 100 mcg/actuation HFA aerosol inhaler 2 puff inhalation BID 30 Days Qty: 13 RF: 4 Stiolto Respimat 2.5-2.5 mcg/actuation mist 2 puff inhalation DAILY RF: 0 bisacodyl 5 mg tablet 5 mg PO DAILY PRN (Reason: constipation) Qty: 30 RF: 0 tamsulosin [Flomax] 0.4 mg Capsule 0.8 mg PO BEDTIME RF: 0 omeprazole 20 mg Capsule,Delayed Release(Dr/Ec) 20 mg PO BID RF: 0 fluoxetine [Prozac] 20 mg Capsule 60 mg PO DAILY RF: 0 sennosides-docusate sodium [Senna-S] 8.6-50 mg Tablet 2 tab PO BID PRN (Reason: Constipation) RF: 0 ascorbic acid (vitamin C) [Vitamin C] 500 mg Tablet 1,000 mg PO BID RF: 0 guaifenesin 400 mg Tablet 400 mg PO TID PRN (Reason: cough) RF: 0 pregabalin [Lyrica] 100 mg Capsule 100 mg PO BEDTIME RF: 0 Ensure Plus 0.05-1.5 gram-kcal/mL Liquid 1 ea PO BID RF: 0 acetaminophen 500 mg Tablet 500 mg PO QID MDD SEE PHARMACY COMMENT PRN (Reason: Pain) Qty: 0 RF: 0 ipratropium-albuterol 0.5 mg-3 mg(2.5 mg base)/3 mL Solution For Nebulization See Rx Instructions .ROUTE .COMPLEX PRN (Reason: shortness of breath) Qty: 0 RF: 0 Depakote ER 500 mg Tablet Extended Release 24 Hr 500 mg PO BEDTIME RF: 0 furosemide 20 mg Tablet 20 mg PO DAILY RF: 0 ProAir HFA 90 mcg/actuation Hfa Aerosol Inhaler 2 puff INHALATION Q6H PRN (Reason: Shortness Of Breath) RF: 0 ferrous gluconate 324 mg (36 mg iron) Tablet 324 mg PO DAILY RF: 0 Cardizem CD 180 mg capsule,extended release 24hr 180 mg PO Q24H RF: 0 Referrals: Jose De Jesus Villa DO [Primary Care Provider] - Coding Level of Care Code ED Prosecuting Attorney for Chg Fwd Documented by User: Dileep Verduzco DO 11/27/20 08:46 HPI - Altered Mental Status General: Chief Complaint: Psychiatric Symptoms Stated Complaint: 96 HR HOLD Time Seen by Provider: 11/24/20 17:52 PFSH ED PFSH: Medical History Ascending aortic aneurysm Bradycardia Chronic back pain Chronic neck pain Compression fracture of L1 lumbar vertebra COPD (chronic obstructive pulmonary disease) CVA (cerebral vascular accident) Cystitis with hematuria GERD (gastroesophageal reflux disease) HTN (hypertension) Macrocytic anemia Multilevel degenerative disc disease Self-catheterizes urinary bladder Spinal stenosis, site unspecified Urinary retention Surgical History H/O laminectomy L5-S1 HEMILANIECTOMIES H/O shoulder surgery H/O spinal fusion C5-C6 History of cystoscopy in 01/2019 -chronic inflammatory changes, bladder diverticuli Hx laparoscopic cholecystectomy S/P ureteral stent placement Family History Father CAD (coronary artery disease) Social History Smoking and tobacco status: current every day smoker cigarettes Packs smoked per day: 1 Years cigarettes smoked: 60 Quit status (tobacco): not considering quitting Second hand smoke exposure: Yes Smoking risk assessment/counseling performed?: Yes Alcohol intake: never Caregiver/support person: Yes Lives independently: Yes Household members: none Marital status: service: Yes Current occupational status: disabled History of recent travel: No Current gender identity: Male Course Vital Signs: Vital signs: Vital Signs Temperature 97.6 F 11/24/20 17:55 Pulse Rate 73 11/26/20 10:39 Respiratory Rate 17 11/26/20 10:39 Blood Pressure 131/73 11/26/20 10:39 Pulse Oximetry 99 11/26/20 10:39 MDM - Altered Mental Status MDM Narrative: Medical decision making narrative: Patient inadvertently landed on my work list. I did not care for the patient see Dr. Balderas's notes. Lab Data: Labs: Lab Results 11/24/20 11/24/20 11/24/20 Range/Units 19:10 19:10 19:10 WBC 10.4 H (4.0-10.0) 10^3/ uL RBC 3.40 L (4.1-5.3) 10^6/u L Hgb 11.5 L (11.7-16.6) g/dL Hct 34.8 L (42.0-52.0) % MCV 102.4 H (80-94) fl MCH 33.8 (28.0-34.0) pg MCHC 33.0 (30.0-36.0) g/dL RDW 14.6 (12.1-15.1) % Plt Count 237 (130-400) 10^3/c mm MPV 10.5 H (7.4-10.4) fL Neut % (Auto) 69.1 % Lymph % (Auto) 16.5 % [place] % (Auto) 8.6 % Eos % (Auto) 5.0 % Baso % (Auto) 0.3 % Neut # (Auto) 7.19 (1.8-7.7) 10^3/u L Lymph # (Auto) 1.7 (0.8-4.8) 10^3/u L [place] # (Auto) 0.9 (0.2-0.9) 10^3/u L Eos # (Auto) 0.5 (0.0-0.8) 10^3/u L Baso # (Auto) 0.0 (0.0-0.1) 10^3/u L Nucleated RBC % (a uto) 0 % Nucleated RBCs # 0.0 /100WBC Sodium 138 (136-145) mmol/L Potassium 3.8 (3.5-5.1) mmol/L Chloride 101 (98-107) mmol/L Carbon Dioxide 28 (22-29) mmol/L Anion Gap 12.8 (5-19) BUN 11 (8-23) mg/dL Creatinine 0.9 (0.7-1.2) mg/dL GFR Calculation Not Reportable Glucose 80 (65-115) mg/dL Calculated Osmolal ity 284 L (285-295) mOsm/k g Calcium 8.8 (8.5-10.5) mg/dL Total Bilirubin 0.2 (0.15-1.2) mg/dL AST 9 (0-40) U/L ALT 8 (0-41) U/L Alkaline Phosphata se 82 (40-130) IU/L Total Protein 6.3 L (6.6-8.7) g/dL Albumin 3.6 (3.5-5.2) g/dL Globulin 2.7 (1.3-4.6) g/dL Procalcitonin 0.04 (0-0.5) ng/mL TSH 2.06 (0.27-4.20) uIU/ mL Urine Color (Yellow) Urine Appearance (CLEAR) Urine pH (5-7) Ur Specific Gravit y (1.005-1.030) Urine Protein (Negative) Urine Glucose (UA) (Normal) Urine Ketones (Negative) Urine Blood (Negative) Urine Nitrate (Negative) Urine Bilirubin (Negative) Prot Sulfosalicyli c Acd (Negative) Urine Urobilinogen (Negative) mg/dL Ur Leukocyte Grace ase (Negative) Urine RBC (0-2) /hpf Urine WBC (0-5) /hpf Ur Squamous Epith Cells (0-5) /hpf Amorphous Sediment Urine Bacteria (NONE) /hpf Salicylates < 0.3 L (3-10) mg/dL Urine Opiates Scre en (Negative) ng/mL Acetaminophen < 5.0 L (10-30) ug/mL Ur Barbiturates Sc reen (Negative) ng/mL Ur Phencyclidine S crn (Negative) ng/mL Ur Amphetamines Sc reen (Negative) ng/mL U Benzodiazepines Scrn (Negative) ng/mL Urine Cocaine Scre en (Negative) ng/mL U Marijuana (THC) Screen (Negative) ng/mL SARS-CoV-2 Ag (Rap id) (Negative) 11/24/20 11/24/20 11/24/20 Range/Units 19:30 19:30 22:00 WBC (4.0-10.0) 10^3/ uL RBC (4.1-5.3) 10^6/u L Hgb (11.7-16.6) g/dL Hct (42.0-52.0) % MCV (80-94) fl MCH (28.0-34.0) pg MCHC (30.0-36.0) g/dL RDW (12.1-15.1) % Plt Count (130-400) 10^3/c mm MPV (7.4-10.4) fL Neut % (Auto) % Lymph % (Auto) % [place] % (Auto) % Eos % (Auto) % Baso % (Auto) % Neut # (Auto) (1.8-7.7) 10^3/u L Lymph # (Auto) (0.8-4.8) 10^3/u L [place] # (Auto) (0.2-0.9) 10^3/u L Eos # (Auto) (0.0-0.8) 10^3/u L Baso # (Auto) (0.0-0.1) 10^3/u L Nucleated RBC % (a uto) % Nucleated RBCs # /100WBC Sodium (136-145) mmol/L Potassium (3.5-5.1) mmol/L Chloride (98-107) mmol/L Carbon Dioxide (22-29) mmol/L Anion Gap (5-19) BUN (8-23) mg/dL Creatinine (0.7-1.2) mg/dL GFR Calculation Glucose (65-115) mg/dL Calculated Osmolal ity (285-295) mOsm/k g Calcium (8.5-10.5) mg/dL Total Bilirubin (0.15-1.2) mg/dL AST (0-40) U/L ALT (0-41) U/L Alkaline Phosphata se (40-130) IU/L Total Protein (6.6-8.7) g/dL Albumin (3.5-5.2) g/dL Globulin (1.3-4.6) g/dL Procalcitonin (0-0.5) ng/mL TSH (0.27-4.20) uIU/ mL Urine Color Yellow (Yellow) Urine Appearance Clear (CLEAR) Urine pH 8 H (5-7) Ur Specific Gravit y 1.005 (1.005-1.030) Urine Protein Neg (Negative) Urine Glucose (UA) Norm (Normal) Urine Ketones Negative (Negative) Urine Blood 2+ H (Negative) Urine Nitrate Positive H (Negative) Urine Bilirubin Neg (Negative) Prot Sulfosalicyli c Acd Negative (Negative) Urine Urobilinogen Neg (Negative) mg/dL Ur Leukocyte Grace ase 2+ H (Negative) Urine RBC 5-10 H (0-2) /hpf Urine WBC 0-4 H (0-5) /hpf Ur Squamous Epith Cells 0-4 H (0-5) /hpf Amorphous Sediment Not Reportable Urine Bacteria 2+ H (NONE) /hpf Salicylates (3-10) mg/dL Urine Opiates Scre en Negative (Negative) ng/mL Acetaminophen (10-30) ug/mL Ur Barbiturates Sc reen Negative (Negative) ng/mL Ur Phencyclidine S crn Negative (Negative) ng/mL Ur Amphetamines Sc reen Negative (Negative) ng/mL U Benzodiazepines Scrn Positive H (Negative) ng/mL Urine Cocaine Scre en Negative (Negative) ng/mL U Marijuana (THC) Screen Negative (Negative) ng/mL SARS-CoV-2 Ag (Rap id) Negative (Negative) Discharge Plan Discharge Condition: Stable Prescriptions: No Action methenamine hippurate 1 gram tablet 1 gm PO BID Qty: 60 RF: 12 Asmanex HFA 100 mcg/actuation HFA aerosol inhaler 2 puff inhalation BID 30 Days Qty: 13 RF: 4 Stiolto Respimat 2.5-2.5 mcg/actuation mist 2 puff inhalation DAILY RF: 0 bisacodyl 5 mg tablet 5 mg PO DAILY PRN (Reason: constipation) Qty: 30 RF: 0 tamsulosin [Flomax] 0.4 mg Capsule 0.8 mg PO BEDTIME RF: 0 omeprazole 20 mg Capsule,Delayed Release(Dr/Ec) 20 mg PO BID RF: 0 fluoxetine [Prozac] 20 mg Capsule 60 mg PO DAILY RF: 0 sennosides-docusate sodium [Senna-S] 8.6-50 mg Tablet 2 tab PO BID PRN (Reason: Constipation) RF: 0 ascorbic acid (vitamin C) [Vitamin C] 500 mg Tablet 1,000 mg PO BID RF: 0 guaifenesin 400 mg Tablet 400 mg PO TID PRN (Reason: cough) RF: 0 pregabalin [Lyrica] 100 mg Capsule 100 mg PO BEDTIME RF: 0 Ensure Plus 0.05-1.5 gram-kcal/mL Liquid 1 ea PO BID RF: 0 acetaminophen 500 mg Tablet 500 mg PO QID MDD SEE PHARMACY COMMENT PRN (Reason: Pain) Qty: 0 RF: 0 ipratropium-albuterol 0.5 mg-3 mg(2.5 mg base)/3 mL Solution For Nebulization See Rx Instructions .ROUTE .COMPLEX PRN (Reason: shortness of breath) Qty: 0 RF: 0 Depakote ER 500 mg Tablet Extended Release 24 Hr 500 mg PO BEDTIME RF: 0 furosemide 20 mg Tablet 20 mg PO DAILY RF: 0 ProAir HFA 90 mcg/actuation Hfa Aerosol Inhaler 2 puff INHALATION Q6H PRN (Reason: Shortness Of Breath) RF: 0 ferrous gluconate 324 mg (36 mg iron) Tablet 324 mg PO DAILY RF: 0 Cardizem CD 180 mg capsule,extended release 24hr 180 mg PO Q24H RF: 0 Referrals: Jose De Jesus Villa DO [Primary Care Provider] - Coding Level of Care Code ED Prosecuting Attorney for Azam Adamson
[2020-11-24 17:55] VITALS: BP 135/68; PULSE 61; RESP 16; TEMP 36.4; O2SAT 98
--- NOTE | 2020-11-24 18:02 | CTR_ITS ---
PROCEDURE INFORMATION: Exam: CT Head Without Contrast Exam date and time: 11/24/2020 6:02 PM Age: 75 years old Clinical indication: Altered mental status/memory loss; Other: Behavioral changes; Additional info: AMS, behavioral changes TECHNIQUE: Imaging protocol: Computed tomography of the head without contrast. Total images: 202 Radiation optimization: All CT scans at this facility use at least one of these dose optimization techniques: automated exposure control; mA and/or kV adjustment per patient size (includes targeted exams where dose is matched to clinical indication); or iterative reconstruction. COMPARISON: CT head wo con* [id number] 09/30/2019 12:42 PM RADIATION DOSE METRICS: Total DLP (mGy-cm): 837.52 FINDINGS: Brain: No evidence of active or acute intracranial pathologic process, hemorrhage, or trauma. No hyperdense MCA or insular ribbon sign. No mass effect. No midline shift. Old tiny lacunar infarction right caudate nucleus. Mild small vessel ischemic disease with senile periventricular leukomalacia. Atrophic changes considered slightly greater than that anticipated for patient's chronological age. Cerebral ventricles: No ventriculomegaly. Paranasal sinuses: No visible evidence of active paranasal sinus disease. Mild chronic right ethmoid and maxillary sinusitis. Mastoid air cells: No evidence for mastoiditis. Bones/joints: Unremarkable. No acute fracture. Soft tissues: Unremarkable. CT/CT head wo con* [id number] IMPRESSION: No evidence of active or acute intracranial pathologic process, hemorrhage, or trauma. Radiation Dose CTDIVOL = (mGy): DLP = 837.52 (mGy-cm)
--- NOTE | 2020-11-24 18:04 | ECG_ITS ---
[facility] Test Date: 2020-11-24 Pat Name: Michael Herrera Department: Room: Gender: Male Label Remover: : 1945 Requested By: Gerry Sanchez Order Number: [id number] Vadim MD: Kody Galindo M.D. Measurements Intervals [place] Rate: 59 P: 16 MS: 204 QRS: 28 QRSD: 106 T: 80 QT: 429 QTc: 427 Interpretive Statements SINUS BRADYCARDIA Compared to ECG 10/04/2019 18:18:35 Atrial flutter no longer present Electronically Signed On 11-24-2020 19:45:09 CDT by Kody Galindo M.D. [email or web address]
--- NOTE | 2020-11-24 18:09 | PC.NURSE ---
upon talking with pt further pt offered more explanation to his involvement with police today. pt states police came into his home without permission and saw a gun. pt states he always keeps an unloaded gun around to scare off people
[2020-11-24 19:23] LABS: Basophils % 0.3 %; Eosinophils # 0.5 10^3/uL (0.0-0.8); Hematocrit 34.8 % (42.0-52.0); Hemoglobin 11.5 g/dL (11.7-16.6); Lymphocytes # 1.7 10^3/uL (0.8-4.8); Lymphocytes % 16.5 %; Mean Corpuscular Hemoglobin 33.8 pg (28.0-34.0); Mean Corpuscular Volume 102.4 fl (80-94); Mean Platelet Volume 10.5 fL (7.4-10.4); Monocytes # 0.9 10^3/uL (0.2-0.9); Monocytes % 8.6 %; Neutrophils # 7.19 10^3/uL (1.8-7.7); Neutrophils % 69.1 %; Nucleated Red Blood Cells % 0 %; Platelet Count 237 10^3/cmm (130-400); Red Cell Distribution Width 14.6 % (12.1-15.1); White Blood Count 10.4 10^3/uL (4.0-10.0)
--- NOTE | 2020-11-24 19:34 | PC.NURSE ---
PT STATES SUPRAPUBIC REPLACED ONE WEEK AGO.
[2020-11-24 19:45] LABS: Urine Appearance Clear (CLEAR); Urine Color Yellow (Yellow)
[2020-11-24 19:46] LABS: Add Urine Microscopic? YES; Bilirubin Urine Neg (Negative); Blood Urine 2+ (Negative); Glucose Urine UA Norm (Normal); Ketones Urine Negative (Negative); Leukocyte Esterase Urine 2+ (Negative); Nitrate Urine Positive (Negative); Protein Urine Neg (Negative); Specific Gravity, Urine 1.005 (1.005-1.030); Sulfosalicylic Acid Urine Negative (Negative); Urobilinogen Urine Neg (Negative); pH Urine 8 (5-7)
[2020-11-24 19:47] LABS: Add Urine Culture? Yes; Bacteria Urine 2+ /hpf; Squamous Epithelial Cell Urine 0-4 /hpf (0-5); WBC Urine 0-4 /hpf (0-5)
[2020-11-24 20:03] LABS: Acetaminophen < 5.0 ug/mL (10-30); Alanine Aminotransferase 8 U/L (0-41); Albumin Level 3.6 g/dL (3.5-5.2); Alkaline Phosphatase 82 IU/L (40-130); Anion Gap 12.8 (5-19); Aspartate Amino Transferase 9 U/L (0-40); Blood Urea Nitrogen 11 mg/dL (8-23); Calcium 8.8 mg/dL (8.5-10.5); Carbon Dioxide 28 mmol/L (22-29); Chloride 101 mmol/L (98-107); Globulin 2.7 g/dL (1.3-4.6); Glucose 80 mg/dL (65-115); Osmolality Calculated 284 mOsm/kg (285-295); Potassium 3.8 mmol/L (3.5-5.1); Salicylate < 0.3 mg/dL (3-10); Sodium 138 mmol/L (136-145); Thyroid Stimulating Hormone 2.06 uIU/mL (0.27-4.20); Total Bilirubin 0.2 mg/dL (0.15-1.2); Total Protein 6.3 g/dL (6.6-8.7)
[2020-11-24 20:48] LABS: Procalcitonin 0.04 ng/mL (0-0.5)
--- NOTE | 2020-11-24 22:16 | XRR_ITS ---
PROCEDURE INFORMATION: Exam: XR Chest Exam date and time: 11/24/2020 10:16 PM Age: 75 years old Clinical indication: Screening exam; Other screening; Additional info: Medical clearance TECHNIQUE: Imaging protocol: XR of the chest. Views: 1 view. Total images: 1 COMPARISON: CR XR chest 1V portable [id number] 10/04/2019 12:48 PM FINDINGS: Lungs: No visible active interstitial or alveolar airspace disease. Pleural spaces: Unremarkable. No pleural effusion. No pneumothorax. Heart/Mediastinum: Cardiac structures and configuration with arteriosclerosis. Bones/joints: Mild primary osteoarthritis of the shoulders. XR/XR chest 1V portable [id number] IMPRESSION: No radiographic evidence of active cardiopulmonary process.
[2020-11-24 22:35] LABS: SARS Covid-2 Antigen Negative (Negative)
[2020-11-24 22:54] LABS: Amphetamines Screen Urine Negative (Negative); Barbiturates Screen Urine Negative (Negative); Benzodiazepines Screen Urine Positive (Negative); Cocaine Screen Urine Negative (Negative); Opiate Screen Urine Negative (Negative); PCP Screen Urine Negative (Negative); THC Screen Urine Negative (Negative)
--- NOTE | 2020-11-25 11:39 | PC.NURSE ---
David Vitale. Freddie Schneider and [facility] contacted and rooms are unavailable at this time
--- NOTE | 2020-11-25 12:22 | PC.NURSE ---
Patient requested Tylenol from his personal medication box that was brought with him to the ED. Approved through Dr. Sanchez and pt given 1000 MG per instructions on bottle. Pt rates his pain as 8/10 in his lower back.
[2020-11-26 07:05] VITALS: BP 155/81; RESP 69; O2SAT 96
--- NOTE | 2020-11-26 07:22 | PC.NURSE ---
Received report assumed care , no changes noted. Alert and oriented, C/O of low back pain. Any ideas of harming anyone is resolved.
[2020-11-26 10:39] VITALS: BP 131/73; PULSE 73; RESP 17; O2SAT 99
--- NOTE | 2020-11-26 10:43 | PC.NURSE ---
Took 2 Tylenol at 10:00 today for low back pain
--- NOTE | 2020-11-26 11:38 | PC.NURSE ---
ER Auth# [id number] Attempts to find placement: [id number] KRYSTINA - no beds per Gregg 0815- Warren Yadav- no solomon unit per Matilde 0930- Justino Chavez -No Bed available
[2020-11-26] MEDS: cephALEXin 500 mg Capsule PO (11:39)
== END 2020-11-26 17:20 ==
PROVIDERS: Emergency Provider Emergency Medicine; PCP Emergency Medicine Emergency Medical Services
DX: Z04.6 Encounter for general psychiatric examination, requested by authority (principal); J44.9 Chronic obstructive pulmonary disease, unspecified; Z86.73 Personal history of transient ischemic attack (TIA), and cerebral infarction without residual deficits; I10 Essential (primary) hypertension; F17.210 Nicotine dependence, cigarettes, uncomplicated; Z20.822 Contact with and (suspected) exposure to COVID-19; Z79.899 Other long term (current) drug therapy
CPT/HCPCS: 36415; 51702; 70450; 71045; 80053; 80306; 80307; 81001; 84145; 84443; 85025; 87077; 87086; 87186; 87426; 93005; 99285

== ENCOUNTER 2021-10-09 19:03 | Emergency (ER) | payer OTHER, MEDICARE, SELFPAY ==
[2021-10-09 19:09] VITALS: BMI 20.9
--- NOTE | 2021-10-09 19:09 | ED_ITS ---
Documented by User: Poppy Bryant MD 10/17/21 11:15 HPI - General Adult General: Chief complaint: Extremity Injury, Lower Stated complaint: LACS ON BOTTOM OF TOES Time Seen by Provider: 10/09/21 19:08 History of Present Illness: Patient is a 76-year-old male not on any anticoagulation who presents the emergency room after he sustained a laceration to his left second and third toes while attempting to remove carpet. Patient tells me that he was removing carpet when the carpet suddenly sliced through the dorsal portion of the second and third toe. Patient does not remember his last Tdap. Patient denies any anticoagulation use. No other focal complaints at this time. No other signs of injuries. Patient reports mild amount of bleeding that has stopped. Onset:3 hrs ago Duration:3 hrs Location:home Severity:moderate Associated symptoms: Deny chest pain, dyspnea, nausea, palpitations or vomiting Review of Systems Const: Denies: fever(s) or chills Eyes: Denies: change in vision ENMT: Denies: mouth pain Card: Denies: chest pain or palpitations Resp: Denies: dyspnea or non-productive cough GI: Denies: abdominal pain, nausea, vomiting or diarrhea : Denies: dysuria Musc: Denies: extremity pain Skin/Breast: Reports: new lesions (+L toe lacerations) Neuro: Denies: weakness in extremities Psych: Reports: other (Normal mood) Tae/Lymph: Denies: easy bruising PFS ED PFSH: Medical History Ascending aortic aneurysm Bradycardia Chronic back pain Chronic neck pain Compression fracture of L1 lumbar vertebra COPD (chronic obstructive pulmonary disease) CVA (cerebral vascular accident) Cystitis with hematuria GERD (gastroesophageal reflux disease) HTN (hypertension) Macrocytic anemia Multilevel degenerative disc disease Self-catheterizes urinary bladder Spinal stenosis, site unspecified Urinary retention Surgical History H/O laminectomy L5-S1 HEMILANIECTOMIES H/O shoulder surgery H/O spinal fusion C5-C6 History of cystoscopy in 01/2019 -chronic inflammatory changes, bladder diverticuli Hx laparoscopic cholecystectomy S/P ureteral stent placement Family History Father CAD (coronary artery disease) Social History Smoking and tobacco status: current every day smoker cigarettes Packs smoked per day: 1 Years cigarettes smoked: 60 Quit status (tobacco): not considering quitting Second hand smoke exposure: Yes Smoking risk assessment/counseling performed?: Yes Alcohol intake: never Caregiver/support person: Yes Lives independently: Yes Household members: none Marital status: service: Yes Current occupational status: disabled History of recent travel: No Current gender identity: Male Physical Exam Const: COMMON NORMALS: alert HENMT: COMMON NORMALS: atraumatic HEAD & SCALP: atraumatic MOUTH: moist mucous membranes not abnormal Eye: COMMON NORMALS: EOMs intact bilaterally and conjunctivae normal CONJUNCTIVA: Yes conjunctivae normal Neck/C-Spine: COMMON NORMALS: full ROM and supple Resp: COMMON NORMALS: normal respiratory effort and clear to auscultation bilaterally AUSCULTATION: clear to auscultation bilaterally Cardio: COMMON NORMALS: regular rate RATE: regular rate GI: COMMON NORMALS: Soft to palpation and non-tender PALPATION: Yes Soft to palpation Extremity: COMMON NORMALS: full ROM Neuro: SENSORIUM/ORIENTATION: Yes alert MOTOR EXAM: No Abnormal motor strength present and Other motor observations present (no focal motor deficits) Psych: COMMON NORMALS: speech normal SPEECH: Yes normal speech MOOD & AFFECT: Yes euthymic mood Skin: NARRATIVE SKIN EXAM: + Left volar laceration the base of the second and third digits Course Vital Signs: Vital signs: Vital Signs Temperature 97.8 F 10/09/21 19:13 Pulse Rate 59 L 10/09/21 19:13 Respiratory Rate 16 10/09/21 19:13 Blood Pressure 162/65 10/09/21 19:13 Pulse Oximetry 97 10/09/21 19:13 MDM - General Adult Medical Decision Making Dr. Bryant had me perform the laceration closure on patient's left foot. He has 2 small lacerations at the base of his second and third toe. They are irrigated extensively with normal saline. Lidocaine 1% was used as local. 2 nonabsorbable sutures were placed to close laceration on second toe and 2 nonabsorbable sutures were placed to close laceration on third toe. He he tolerated procedure well. I was not involved in any other care or dispo plan of patient. See procedural notes for further details.-David Vernon PA-C Lab Data Radiology Impressions Foot X-Ray 10/09/21 19:20 IMPRESSION: No acute skeletal finding. Discharge Plan Discharge Patient Disposition: Home Clinical Impression: Laceration of toe Condition: Stable Prescriptions: No Action methenamine hippurate 1 gram tablet 1 gm PO BID Qty: 60 12RF Rx Instructions: take with 1000mg Vitamin C Asmanex HFA 100 mcg/actuation HFA aerosol inhaler 2 puff inhalation BID 30 Days Qty: 13 4RF Stiolto Respimat 2.5-2.5 mcg/actuation mist 2 puff inhalation DAILY 0RF ciprofloxacin HCl 500 mg tablet 500 mg PO BID Qty: 20 0RF Rx Instructions: HOLD METHENAMINE PLUS VITAMIN C WHILE TAKING CIPRO bisacodyl 5 mg tablet 5 mg PO DAILY PRN (Reason: constipation) Qty: 30 0RF tamsulosin [Flomax] 0.4 mg Capsule 0.8 mg PO BEDTIME 0RF omeprazole 20 mg Capsule,Delayed Release(Dr/Ec) 20 mg PO BID 0RF fluoxetine [Prozac] 20 mg Capsule 60 mg PO DAILY 0RF sennosides-docusate sodium [Senna-S] 8.6-50 mg Tablet 2 tab PO BID PRN (Reason: Constipation) 0RF ascorbic acid (vitamin C) [Vitamin C] 500 mg Tablet 1,000 mg PO BID 0RF guaifenesin 400 mg Tablet 400 mg PO TID PRN (Reason: cough) 0RF pregabalin [Lyrica] 100 mg Capsule 100 mg PO BEDTIME 0RF Ensure Plus 0.05-1.5 gram-kcal/mL Liquid 1 ea PO BID 0RF acetaminophen 500 mg Tablet 500 mg PO QID MDD SEE PHARMACY COMMENT PRN (Reason: Pain) Qty: 0 0RF ipratropium-albuterol 0.5 mg-3 mg(2.5 mg base)/3 mL Solution For Nebulization See Rx Instructions .ROUTE .COMPLEX PRN (Reason: shortness of breath) Qty: 0 0RF Rx Instructions: ONE VIAL QID DIRECTED Depakote ER 500 mg Tablet Extended Release 24 Hr 500 mg PO BEDTIME 0RF furosemide 20 mg Tablet 20 mg PO DAILY 0RF ProAir HFA 90 mcg/actuation Hfa Aerosol Inhaler 2 puff INHALATION Q6H PRN (Reason: Shortness Of Breath) 0RF ferrous gluconate 324 mg (36 mg iron) Tablet 324 mg PO DAILY 0RF Cardizem CD 180 mg capsule,extended release 24hr 180 mg PO Q24H 0RF Discharge Orders: Discharge ED (Routine); Ordered 10/09/21 Ordered By: Poppy Bryant Referrals: Janet Martinez, AEROSPACE PROJECT ENGINEER [Primary Care Provider] - Discharge Diet: Advance as tolerated Discharge Activity: Increase activity as tolerated Activity Restrictions/Additional Instructions: Your suture(s) need to be removed in 10 to 14 days. Come back to the emergency room any redness, swelling, drainage from the suture site or any new concerning complaints Coding Level of Care Code ED Securities And Real Estate Director for Chg Fwd Exam Comprehensive Documented by User: CLARY Ponce 10/09/21 21:22 HPI - General Adult General: Chief complaint: Extremity Injury, Lower Stated complaint: LACS ON BOTTOM OF TOES Time Seen by Provider: 10/09/21 19:08 PFS ED PFSH: Medical History Ascending aortic aneurysm Bradycardia Chronic back pain Chronic neck pain Compression fracture of L1 lumbar vertebra COPD (chronic obstructive pulmonary disease) CVA (cerebral vascular accident) Cystitis with hematuria GERD (gastroesophageal reflux disease) HTN (hypertension) Macrocytic anemia Multilevel degenerative disc disease Self-catheterizes urinary bladder Spinal stenosis, site unspecified Urinary retention Surgical History H/O laminectomy L5-S1 HEMILANIECTOMIES H/O shoulder surgery H/O spinal fusion C5-C6 History of cystoscopy in 01/2019 -chronic inflammatory changes, bladder diverticuli Hx laparoscopic cholecystectomy S/P ureteral stent placement Family History Father CAD (coronary artery disease) Social History Smoking and tobacco status: current every day smoker cigarettes Packs smoked per day: 1 Years cigarettes smoked: 60 Quit status (tobacco): not considering quitting Second hand smoke exposure: Yes Smoking risk assessment/counseling performed?: Yes Alcohol intake: never Caregiver/support person: Yes Lives independently: Yes Household members: none Marital status: service: Yes Current occupational status: disabled History of recent travel: No Current gender identity: Male Procedures Laceration Laceration 1: Site: lower extremity (Left foot-base of 2nd toe) Side (If applicable): left Size (cm): 1 Description: linear and clean Depth: simple, single layer Local Anesthetic: lidocaine 1% Amount of anesthesia used (mL): 1.5 Pre-repair: irrigated extensively (Irrigated extensively with normal saline) Skin layer closed with: nylon Size (cm): 4-0 Number of sutures: 2 Technique: simple, interrupted Laceration 2: Site: lower extremity (Left foot-base of third toe) Size (cm): 0.75 Description: linear Depth: simple, single layer Local Anesthetic: lidocaine 1% Amount of anesthesia used (mL): 1.5 Pre-repair: irrigated extensively (Irrigated extensively with normal saline) Skin layer closed with: nylon Size (cm): 4-0 Number of sutures: 2 Technique: simple, interrupted Course Vital Signs: Vital signs: Vital Signs Temperature 97.8 F 10/09/21 19:13 Pulse Rate 59 L 10/09/21 19:13 Respiratory Rate 16 10/09/21 19:13 Blood Pressure 162/65 10/09/21 19:13 Pulse Oximetry 97 10/09/21 19:13 MDM - General Adult Medical Decision Making Dr. Bryant had me perform the laceration closure on patient's left foot. He has 2 small lacerations at the base of his second and third toe. They are irrigated extensively with normal saline. Lidocaine 1% was used as local. 2 nonabsorbable sutures were placed to close laceration on second toe and 2 nonabsorbable sutures were placed to close laceration on third toe. He he tolerated procedure well. I was not involved in any other care or dispo plan of patient. See procedural notes for further details.-David Vernon PA-C Lab Data Radiology Impressions Foot X-Ray 10/09/21 19:20 IMPRESSION: No acute skeletal finding. Discharge Plan Discharge Patient Disposition: Home Clinical Impression: Laceration of toe Condition: Stable Prescriptions: No Action methenamine hippurate 1 gram tablet 1 gm PO BID Qty: 60 12RF Rx Instructions: take with 1000mg Vitamin C Asmanex HFA 100 mcg/actuation HFA aerosol inhaler 2 puff inhalation BID 30 Days Qty: 13 4RF Stiolto Respimat 2.5-2.5 mcg/actuation mist 2 puff inhalation DAILY 0RF ciprofloxacin HCl 500 mg tablet 500 mg PO BID Qty: 20 0RF Rx Instructions: HOLD METHENAMINE PLUS VITAMIN C WHILE TAKING CIPRO bisacodyl 5 mg tablet 5 mg PO DAILY PRN (Reason: constipation) Qty: 30 0RF tamsulosin [Flomax] 0.4 mg Capsule 0.8 mg PO BEDTIME 0RF omeprazole 20 mg Capsule,Delayed Release(Dr/Ec) 20 mg PO BID 0RF fluoxetine [Prozac] 20 mg Capsule 60 mg PO DAILY 0RF sennosides-docusate sodium [Senna-S] 8.6-50 mg Tablet 2 tab PO BID PRN (Reason: Constipation) 0RF ascorbic acid (vitamin C) [Vitamin C] 500 mg Tablet 1,000 mg PO BID 0RF guaifenesin 400 mg Tablet 400 mg PO TID PRN (Reason: cough) 0RF pregabalin [Lyrica] 100 mg Capsule 100 mg PO BEDTIME 0RF Ensure Plus 0.05-1.5 gram-kcal/mL Liquid 1 ea PO BID 0RF acetaminophen 500 mg Tablet 500 mg PO QID MDD SEE PHARMACY COMMENT PRN (Reason: Pain) Qty: 0 0RF ipratropium-albuterol 0.5 mg-3 mg(2.5 mg base)/3 mL Solution For Nebulization See Rx Instructions .ROUTE .COMPLEX PRN (Reason: shortness of breath) Qty: 0 0RF Rx Instructions: ONE VIAL QID DIRECTED Depakote ER 500 mg Tablet Extended Release 24 Hr 500 mg PO BEDTIME 0RF furosemide 20 mg Tablet 20 mg PO DAILY 0RF ProAir HFA 90 mcg/actuation Hfa Aerosol Inhaler 2 puff INHALATION Q6H PRN (Reason: Shortness Of Breath) 0RF ferrous gluconate 324 mg (36 mg iron) Tablet 324 mg PO DAILY 0RF Cardizem CD 180 mg capsule,extended release 24hr 180 mg PO Q24H 0RF Discharge Orders: Discharge ED (Routine); Ordered 10/09/21 Ordered By: Poppy Bryant Referrals: Janet Martinez FNP [Primary Care Provider] - Discharge Diet: Advance as tolerated Discharge Activity: Increase activity as tolerated Activity Restrictions/Additional Instructions: Your suture(s) need to be removed in 10 to 14 days. Come back to the emergency room any redness, swelling, drainage from the suture site or any new concerning complaints Coding Level of Care Code ED Securities And Real Estate Director for Chg Fwd Exam Comprehensive
[2021-10-09 19:13] VITALS: BP 162/65; PULSE 59; RESP 16; TEMP 36.6; O2SAT 97
--- NOTE | 2021-10-09 19:20 | XRR_ITS ---
PROCEDURE INFORMATION: Exam: XR Left Foot Exam date and time: 10/09/2021 7:30 PM Age: 76 years old Clinical indication: Pain; Foot; Left; Additional info: Foot laceration TECHNIQUE: Imaging protocol: Radiologic exam of the Left foot. Views: 3 or more views. COMPARISON: No relevant prior studies available. FINDINGS: Bones/joints: The bones are intact and in normal alignment. No fracture. Soft tissues: Soft tissue swelling of the dorsal foot. XR/XR foot LT min 3V* [id number] IMPRESSION: No acute skeletal finding.
[2021-10-09] MEDS: tetanus-dipt-pertussis 0.5 mL SDV IM (19:47)
== END 2021-10-09 21:50 | disposition home or self-care (01) ==
PROVIDERS: Emergency Provider Emergency Medicine; PCP Nurse Practitioner Family
DX: S91.114A Laceration without foreign body of right lesser toe(s) without damage to nail, initial encounter (principal); J44.9 Chronic obstructive pulmonary disease, unspecified; Z86.73 Personal history of transient ischemic attack (TIA), and cerebral infarction without residual deficits; I10 Essential (primary) hypertension; F17.210 Nicotine dependence, cigarettes, uncomplicated; W26.8XXA Contact with other sharp object(s), not elsewhere classified, initial encounter; Z23 Encounter for immunization
CPT/HCPCS: 12001; 73630; 90471; 90715; 99283

== ENCOUNTER 2021-10-18 10:37 | Emergency (ER) | payer OTHER, MEDICARE, SELFPAY ==
[2021-10-18 10:40] VITALS: BP 120/77; PULSE 78; RESP 18; TEMP 36.6; O2SAT 96; BMI 20.9
--- NOTE | 2021-10-18 10:40 | ECG_ITS ---
[facility] Test Date: 2021-10-18 Pat Name: Michael Herrera Department: Room: Gender: Male Cut Out Marker: : 1945 Requested By: Dileep Khan Order Number: [id number] Vadim MD: Brissa Roblero M.D. Measurements Intervals Anderson Rate: 81 P: 38 OR: 189 QRS: 51 QRSD: 101 T: 84 QT: 373 QTc: 433 Interpretive Statements SINUS RHYTHM PROBABLE INFERIOR MYOCARDIAL INFARCTION , PROBABLY OLD [35 ms Q WAVE IN II/aVF] INTERPRETATION BASED ON A DEFAULT AGE OF 40 YEARS Compared to ECG 11/24/2020 18:13:18 Myocardial infarct finding now present Sinus bradycardia no longer present Electronically Signed On 10-18-2021 21:34:20 CDT by Brissa Roblero M.D. [id number]
--- NOTE | 2021-10-18 11:02 | W.ED.WEAKNES ---
HPI - Weakness General: Chief complaint: Weakness Stated complaint: weakness Time Seen by Provider: 10/18/21 10:39 Source: patient Mode of arrival: EMS Limitations: no limitations History of Present Illness: 76-year-old male presents emergency room with recurrent falls. Evidently fell this morning he has service shop foreman try to get him up she could not get him up so he ended up [facility] to bring him in here. Patient is immediately adamant during a line of questioning that he will not go to the [place] [facility]. I can get from that he usually uses a walker or wheelchair this falls frequently, he is transferring from a chair or bed to 1 of those options. He denies striking his head there is no loss of conscious he does have an indwelling Luna. He states he is generally weak he only isolates a specific complaint to his right knee which he states is also chronic he says he falls multiple times a day. MD Complaint: generalized weakness Onset (ago): unknown Duration: constant Location: generalized Severity: moderate Quality: aching Relieving factors: none Exacerbating factors: none Associated symptoms: Denies chest pain, chills, confusion, melena, decreased appetite, diaphoresis, dysuria, easy bruising, fever(s), headache(s), myalgias, nausea, rash, short of breath, syncope or vomiting Review of Systems Const: Denies: fever(s), chills, fatigue, malaise or diaphoresis ENMT: Denies: throat pain, ear or mastoid pain, nasal discharge or nasal congestion Card: Denies: chest pain or syncope Resp: Denies: dyspnea, productive cough or non-productive cough GI: Denies: abdominal pain, nausea, vomiting or melena : Reports: difficulty urinating (luna); Denies: flank pain, dysuria, urinary frequency or urinary urgency Musc: Denies: neck pain or back pain Skin/Breast: Denies: rash or pruritus Neuro: Denies: headache(s) or confusion Tae/Lymph: Denies: easy bruising PFSH ED PFSH: Medical History Ascending aortic aneurysm Bradycardia Chronic back pain Chronic neck pain Compression fracture of L1 lumbar vertebra COPD (chronic obstructive pulmonary disease) CVA (cerebral vascular accident) Cystitis with hematuria GERD (gastroesophageal reflux disease) HTN (hypertension) Macrocytic anemia Multilevel degenerative disc disease Self-catheterizes urinary bladder Spinal stenosis, site unspecified Urinary retention Surgical History H/O laminectomy L5-S1 HEMILANIECTOMIES H/O shoulder surgery H/O spinal fusion C5-C6 History of cystoscopy in 01/2019 -chronic inflammatory changes, bladder diverticuli Hx laparoscopic cholecystectomy S/P ureteral stent placement Family History Father CAD (coronary artery disease) Social History Smoking and tobacco status: current every day smoker cigarettes Packs smoked per day: 1 Years cigarettes smoked: 60 Quit status (tobacco): not considering quitting Second hand smoke exposure: Yes Smoking risk assessment/counseling performed?: Yes Alcohol intake: never Caregiver/support person: Yes Lives independently: Yes Household members: none Marital status: service: Yes Current occupational status: disabled History of recent travel: No Current gender identity: Male Physical Exam Const: GENERAL APPEARANCE: cooperative and comfortable ORIENTATION/CONSCIOUSNESS: Yes awake, Yes oriented to person, Yes oriented to place and Yes oriented to time HENMT: COMMON NORMALS: normocephalic, atraumatic and hearing grossly normal bilaterally HEAD & SCALP: normocephalic and atraumatic Neck/C-Spine: COMMON NORMALS: no JVD Resp: COMMON NORMALS: normal respiratory effort, No retractions, No use of accessory muscles and clear to auscultation bilaterally AUSCULTATION: clear to auscultation bilaterally Cardio: COMMON NORMALS: no JVD, regular rate, regular rhythm and No murmurs present (Cardio) RATE: regular rate RHYTHM: regular rhythm GI: COMMON NORMALS: Soft to palpation and No hepatosplenomegaly present AUSCULTATION: Yes normoactive bowel sounds PALPATION: Yes Soft to palpation, No Tenderness to palpation present (GI), No Guarding due to palpation present (GI) and Yes No hepatosplenomegaly present Extremity: COMMON NORMALS: normal to inspection, capillary refill normal, no clubbing, cyanosis or edema, no calf tenderness and no pedal edema Neuro: SENSORIUM/ORIENTATION: Yes oriented to person, Yes oriented to place and Yes oriented to time Skin: COMMON NORMALS: no rashes or lesions noted GENERAL SKIN EXAM: no rashes or lesions noted Course Vital Signs: Vital signs: Vital Signs Temperature 97.9 F 10/18/21 10:40 Pulse Rate 86 10/18/21 13:00 Respiratory Rate 30 H 10/18/21 13:00 Blood Pressure 140/74 10/18/21 13:00 Pulse Oximetry 92 10/18/21 13:00 Oxygen Delivery Me thod 10/18/21 10:40 MDM - Weakness Medical Decision Making pt is [facility] Given his physical condition he liekly does need it. He does have a cystitis which we will treat. Medical Records I reviewed the patient's medical records. Lab Data I reviewed the patient's lab results. : 10/18/21 11:00 10/18/21 11:00 Radiology Impressions Knee X-Ray 10/18/21 11:14 IMPRESSION: 1. Degenerative change and osteopenia. 2. No fracture or other significant finding. Chest X-Ray 10/18/21 12:37 IMPRESSION: 1. Infiltrate in the left retrocardiac region suspicious for left lower lobe pneumonia Laboratory Results WBC 14.1 10^3/uL (4.0-10.0) H 10/18/21 11:00 RBC 3.22 10^6/uL (4.1-5.3) L 10/18/21 11:00 Hgb 10.6 g/dL (11.7-16.6) L 10/18/21 11:00 Hct 32.0 % (42.0-52.0) L 10/18/21 11:00 MCV 99.4 fl (80-94) H 10/18/21 11:00 MCH 32.9 pg (28.0-34.0) 10/18/21 11:00 MCHC 33.1 g/dL (30.0-36.0) 10/18/21 11:00 RDW 13.8 % (12.1-15.1) 10/18/21 11:00 Plt Count 278 10^3/cmm (130-400) 10/18/21 11:00 MPV 10.1 fL (7.4-10.4) 10/18/21 11:00 Neut % (Auto) 82.2 % 10/18/21 11:00 Lymph % (Auto) 7.2 % 10/18/21 11:00 [place] % (Auto) 9.1 % 10/18/21 11:00 Eos % (Auto) 0.9 % 10/18/21 11:00 Baso % (Auto) 0.2 % 10/18/21 11:00 Neut # (Auto) 11.62 10^3/uL (1.8-7.7) H 10/18/21 11:00 Lymph # (Auto) 1.0 10^3/uL (0.8-4.8) 10/18/21 11:00 [place] # (Auto) 1.3 10^3/uL (0.2-0.9) H 10/18/21 11:00 Eos # (Auto) 0.1 10^3/uL (0.0-0.8) 10/18/21 11:00 Baso # (Auto) 0.0 10^3/uL (0.0-0.1) 10/18/21 11:00 Nucleated RBC % (auto) 0 % 10/18/21 11:00 Nucleated RBCs # 0.0 /100WBC 10/18/21 11:00 Sodium 140 mmol/L (136-145) 10/18/21 11:00 Potassium 4.0 mmol/L (3.5-5.1) 10/18/21 11:00 Chloride 102 mmol/L (98-107) 10/18/21 11:00 Carbon Dioxide 26 mmol/L (22-29) 10/18/21 11:00 Anion Gap 16.0 (5-19) 10/18/21 11:00 BUN 15 mg/dL (8-23) 10/18/21 11:00 Creatinine 1.1 mg/dL (0.7-1.2) 10/18/21 11:00 GFR Calculation Not Reportable 10/18/21 11:00 Glucose 99 mg/dL (65-115) 10/18/21 11:00 Calculated Osmolality 291 mOsm/kg (285-295) 10/18/21 11:00 Calcium 8.9 mg/dL (8.5-10.5) 10/18/21 11:00 Total Bilirubin 0.3 mg/dL (0.15-1.2) 10/18/21 11:00 AST 17 U/L (0-40) 10/18/21 11:00 ALT 18 U/L (0-41) 10/18/21 11:00 Alkaline Phosphatase 101 IU/L (40-130) 10/18/21 11:00 Total Protein 6.3 g/dL (6.6-8.7) L 10/18/21 11:00 Albumin 3.3 g/dL (3.5-5.2) L 10/18/21 11:00 Globulin 3.0 g/dL (1.3-4.6) 10/18/21 11:00 Urine Color Yellow (Yellow) 10/18/21 11:20 Urine Appearance Sl hazy (CLEAR) 10/18/21 11:20 Urine pH 7 (5-7) 10/18/21 11:20 Ur Specific [place] 1.005 (1.005-1.030) 10/18/21 11:20 Urine Protein Neg (Negative) 10/18/21 11:20 Urine Glucose (UA) Norm (Normal) 10/18/21 11:20 Urine Ketones Negative (Negative) 10/18/21 11:20 Urine Blood 3+ (Negative) H 10/18/21 11:20 Urine Nitrate Negative (Negative) 10/18/21 11:20 Urine Bilirubin Neg (Negative) 10/18/21 11:20 Urine Urobilinogen Norm mg/dL (Negative) 10/18/21 11:20 Ur Leukocyte Esterase 2+ (Negative) H 10/18/21 11:20 Urine RBC 25-40 /hpf (0-2) H 10/18/21 11:20 Urine WBC 55-80 /hpf (0-5) H 10/18/21 11:20 Ur Squamous Epith Cells 0-4 /hpf (0-5) H 10/18/21 11:20 Calcium Oxalate Crystal 5-10 /hpf H 10/18/21 11:20 Amorphous Sediment 2+ /hpf 10/18/21 11:20 Urine Bacteria 2+ /hpf (NONE) H 10/18/21 11:20 Fine Granular Casts 0-4 /lpf H 10/18/21 11:20 Discharge Plan Discharge Patient Disposition: Home Clinical Impression: Falls frequently, Urinary retention, UTI (urinary tract infection), Pneumonia Condition: Stable Prescriptions: New levofloxacin 500 mg tablet 500 mg PO DAILY 10 Days Qty: 10 0RF Discontinued ciprofloxacin HCl 500 mg tablet 500 mg PO BID Qty: 20 0RF Rx Instructions: HOLD METHENAMINE PLUS VITAMIN C WHILE TAKING CIPRO No Action methenamine hippurate 1 gram tablet 1 gm PO BID Qty: 60 12RF Rx Instructions: take with 1000mg Vitamin C Asmanex HFA 100 mcg/actuation HFA aerosol inhaler 2 puff inhalation BID 30 Days Qty: 13 4RF Stiolto Respimat 2.5-2.5 mcg/actuation mist 2 puff inhalation DAILY bisacodyl 5 mg tablet 5 mg PO DAILY PRN (Reason: constipation) Qty: 30 0RF tamsulosin [Flomax] 0.4 mg Capsule 0.8 mg PO BEDTIME omeprazole 20 mg Capsule,Delayed Release(Dr/Ec) 20 mg PO BID fluoxetine [Prozac] 20 mg Capsule 60 mg PO DAILY sennosides-docusate sodium [Senna-S] 8.6-50 mg Tablet 2 tab PO BID PRN (Reason: Constipation) ascorbic acid (vitamin C) [Vitamin C] 500 mg Tablet 1,000 mg PO BID guaifenesin 400 mg Tablet 400 mg PO TID PRN (Reason: cough) pregabalin [Lyrica] 100 mg Capsule 100 mg PO BEDTIME Ensure Plus 0.05-1.5 gram-kcal/mL Liquid 1 ea PO BID acetaminophen 500 mg Tablet 500 mg PO QID MDD SEE PHARMACY COMMENT PRN (Reason: Pain) Qty: 0 0RF ipratropium-albuterol 0.5 mg-3 mg(2.5 mg base)/3 mL Solution For Nebulization See Rx Instructions .ROUTE .COMPLEX PRN (Reason: shortness of breath) Qty: 0 0RF Rx Instructions: ONE VIAL QID DIRECTED Depakote ER 500 mg Tablet Extended Release 24 Hr 500 mg PO BEDTIME furosemide 20 mg Tablet 20 mg PO DAILY ProAir HFA 90 mcg/actuation Hfa Aerosol Inhaler 2 puff INHALATION Q6H PRN (Reason: Shortness Of Breath) ferrous gluconate 324 mg (36 mg iron) Tablet 324 mg PO DAILY Cardizem CD 180 mg capsule,extended release 24hr 180 mg PO Q24H Discharge Orders: Discharge ED (Routine); Ordered 10/18/21 Ordered By: Dileep Verduzco Referrals: Janet Martinez, FINAL ASSEMBLER BOAT [Primary Care Provider] - Patient Instructions: Opioid Safety Coding Level of Care Code ED Food Safety Director for Chg Fwd Exam Comprehensive
[2021-10-18 11:05] LABS: Basophils % 0.2 %; Eosinophils # 0.1 10^3/uL (0.0-0.8); Eosinophils % 0.9 %; Hemoglobin 10.6 g/dL (11.7-16.6); Lymphocytes % 7.2 %; Mean Corpuscular HGB Conc 33.1 g/dL (30.0-36.0); Mean Corpuscular Hemoglobin 32.9 pg (28.0-34.0); Mean Corpuscular Volume 99.4 fl (80-94); Mean Platelet Volume 10.1 fL (7.4-10.4); Monocytes # 1.3 10^3/uL (0.2-0.9); Monocytes % 9.1 %; Neutrophils # 11.62 10^3/uL (1.8-7.7); Neutrophils % 82.2 %; Nucleated Red Blood Cells % 0 %; Platelet Count 278 10^3/cmm (130-400); Red Blood Count 3.22 10^6/uL (4.1-5.3); Red Cell Distribution Width 13.8 % (12.1-15.1); White Blood Count 14.1 10^3/uL (4.0-10.0)
[2021-10-18 11:10] VITALS: PULSE 82; RESP 23; O2SAT 93
--- NOTE | 2021-10-18 11:14 | XR_ITS ---
WS: [id number] Exam: XR knee RT 3V* [id number] Date/Time of Exam: 10/18/2021 11:18 AM Reason For Exam: pain No acute fracture or dislocation. Moderate degenerative narrowing of the medial joint compartment. Os teopenia. No joint effusion seen. XR/XR knee RT 3V* [id number] IMPRESSION: 1. Degenerative change and osteopenia. 2. No fracture or other significant finding.
[2021-10-18 11:30] VITALS: BP 142/83; PULSE 68; RESP 22; O2SAT 94
[2021-10-18 11:36] LABS: Alanine Aminotransferase 18 U/L (0-41); Albumin Level 3.3 g/dL (3.5-5.2); Alkaline Phosphatase 101 IU/L (40-130); Aspartate Amino Transferase 17 U/L (0-40); Blood Urea Nitrogen 15 mg/dL (8-23); Calcium 8.9 mg/dL (8.5-10.5); Carbon Dioxide 26 mmol/L (22-29); Chloride 102 mmol/L (98-107); Glucose 99 mg/dL (65-115); Osmolality Calculated 291 mOsm/kg (285-295); Sodium 140 mmol/L (136-145); Total Bilirubin 0.3 mg/dL (0.15-1.2); Total Protein 6.3 g/dL (6.6-8.7)
[2021-10-18 11:43] LABS: Add Urine Microscopic? YES; Bacteria Urine 2+ /hpf; Bilirubin Urine Neg (Negative); Blood Urine 3+ (Negative); Glucose Urine UA Norm (Normal); Ketones Urine Negative (Negative); Leukocyte Esterase Urine 2+ (Negative); Nitrate Urine Negative (Negative); Protein Urine Neg (Negative); RBC Urine 25-40 /hpf (0-2); Specific Gravity, Urine 1.005 (1.005-1.030); Squamous Epithelial Cell Urine 0-4 /hpf (0-5); Urine Appearance SL Hazy (CLEAR); Urine Color Yellow (Yellow); Urobilinogen Urine Norm (Negative); WBC Urine 55-80 /hpf (0-5); pH Urine 7 (5-7)
[2021-10-18 11:44] LABS: Add Urine Culture? Yes; Amorphous Sediment Urine 2+ /hpf; Fine Granular Casts Urine 0-4 /lpf
[2021-10-18 12:00] VITALS: BP 142/83; PULSE 81; RESP 21; O2SAT 84
[2021-10-18 12:30] VITALS: BP 155/87; PULSE 84; RESP 31
--- NOTE | 2021-10-18 12:37 | XR_ITS ---
WS: [id number] Exam: XR chest 1V portable [id number] Date/Time of Exam: 10/18/2021 12:48 PM Reason For Exam: dyspnea/cough Comparison 11/24/2020. There is infiltrate in the left retrocardiac region suspicious for left lower lobe pneumonia. Right l maryjane is clear. No pleural effusions. Normal cardiomediastinal silhouette. Bony structures are intact. XR/XR chest 1V portable [id number] IMPRESSION: 1. Infiltrate in the left retrocardiac region suspicious for left lower lobe pn eumonia
[2021-10-18 13:00] VITALS: BP 140/74; PULSE 86; RESP 30; O2SAT 92
== END 2021-10-18 13:21 | disposition home or self-care (01) ==
PROVIDERS: Emergency Provider Family Medicine; PCP Nurse Practitioner Family
DX: N39.0 Urinary tract infection, site not specified (principal); R33.9 Retention of urine, unspecified; J18.9 Pneumonia, unspecified organism; R29.6 Repeated falls; J44.9 Chronic obstructive pulmonary disease, unspecified; Z86.73 Personal history of transient ischemic attack (TIA), and cerebral infarction without residual deficits; I10 Essential (primary) hypertension; F17.210 Nicotine dependence, cigarettes, uncomplicated
CPT/HCPCS: 71045; 73562; 80053; 81001; 85025; 87086; 93005; 99285

== ENCOUNTER 2022-05-06 13:10 | Emergency (ER) | payer OTHER, SELFPAY ==
[2022-05-06 13:17] VITALS: BP 132/86; PULSE 76; RESP 16; TEMP 37; O2SAT 95; BMI 20.2
[2022-05-06 13:20] VITALS: BP 132/86; PULSE 75; RESP 18; O2SAT 92
--- NOTE | 2022-05-06 13:31 | XRR_ITS ---
PROCEDURE INFORMATION: Exam: XR Chest Exam date and time: 05/06/2022 2:09 PM Age: 76 years old Clinical indication: Cough TECHNIQUE: Imaging protocol: Radiologic exam of the chest. Views: 1 view. COMPARISON: CR XR chest 1V portable [id number] 10/18/2021 12:44 PM FINDINGS: Lungs: There is no consolidation. Pleural spaces: There is no pleural effusion or pneumothorax. Heart/Mediastinum: Heart size is normal. Vasculature: Ectatic thoracic aorta. Bones/joints: There is moderate degenerative disease at both shoulders. No acute fracture. XR/XR chest 1V portable [id number] IMPRESSION: No acute findings.
--- NOTE | 2022-05-06 13:32 | W.ED.WEAKNES ---
HPI - Weakness General: Chief complaint: Weakness Stated complaint: EDEMA TO FACE; MULT FALLS Time Seen by Provider: 05/06/22 13:14 Source: patient and EMS Mode of arrival: EMS Limitations: no limitations History of Present Illness: This patient was transported by EMS from his home. He has had some increasing global weakness over the past few days and has had several episodes where he was unsuccessful in transfers for himself from his motorized wheelchair to either chair or bed and is let himself to the floor. He called EMS earlier today to have assistance to get back in his chair and then subsequently they were called and it was decided to transport him to the emergency department for further evaluation. He denies any injury as a result of these episodes again he has not had any actual falls but is just been globally weak. He states that he is not had fevers that he is aware. He states he has vomited a couple times but denies any abdominal pain per se. He is not have much of an appetite. No known exposure to infectious disease. Is also had some redness to his right face and development of a rash over the past week or more. He apparently had cataract removal and intraocular lens placement approximately 2 weeks ago at the surgery center in [place]. He is a tobacco user. He has had moderate cough as well. He states he has used motorized wheelchair for some time. He cannot give me a explanation for why he has used device. 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 He does live alone otherwise. Associated symptoms: Reports chills, fever(s), nausea and vomiting; Denies chest pain, dysuria, headache(s) or syncope Review of Systems Const: Reports: fever(s) and chills Eyes: Reports: blurry vision (Right eye) ENMT: Denies: odynophagia, nasal discharge or nasal congestion Card: Denies: chest pain, palpitations, syncope or pre-syncope Resp: Reports: non-productive cough; Denies: wheezing or stridor GI: Reports: nausea and vomiting; Denies: diarrhea : Denies: flank pain, difficulty urinating, dysuria or urinary frequency Musc: Denies: neck pain, back pain, extremity pain or extremity swelling Skin/Breast: Reports: rash (Right forehead), pruritus and erythema Neuro: Reports: weakness in extremities (Chronic); Denies: headache(s) Endo: Denies: polyuria, polydipsia or tired all the time PFSH ED PFSH: Medical History Ascending aortic aneurysm Bradycardia Chronic back pain Chronic neck pain Compression fracture of L1 lumbar vertebra COPD (chronic obstructive pulmonary disease) CVA (cerebral vascular accident) Cystitis with hematuria GERD (gastroesophageal reflux disease) HTN (hypertension) Macrocytic anemia Multilevel degenerative disc disease Self-catheterizes urinary bladder Spinal stenosis, site unspecified Urinary retention Surgical History H/O laminectomy L5-S1 HEMILANIECTOMIES H/O shoulder surgery H/O spinal fusion C5-C6 History of cystoscopy in 01/2019 -chronic inflammatory changes, bladder diverticuli Hx laparoscopic cholecystectomy S/P ureteral stent placement Family History Father CAD (coronary artery disease) Social History Smoking and tobacco status: current every day smoker cigarettes Packs smoked per day: 1 Years cigarettes smoked: 60 Quit status (tobacco): not considering quitting Second hand smoke exposure: Yes Smoking risk assessment/counseling performed?: Yes Alcohol intake: never Caregiver/support person: Yes Lives independently: Yes Household members: none Marital status: service: Yes Current occupational status: disabled History of recent travel: No Current gender identity: Male Physical Exam Narrative: EXAM NARRATIVE: He is alert. He is in no acute distress. He has obvious erythema and crusted lesions to the right forehead. He answers questions in a goal-directed fashion. Const: COMMON NORMALS: no acute distress and patient oriented x3 GENERAL APPEARANCE: cooperative and frail appearing NUTRITIONAL APPEARANCE: thin HENMT: COMMON NORMALS: normocephalic (Faint erythema and crusted lesions noted right scalp), Normal nasal mucous membranes and turbinates present, moist oral mucous membranes and oropharynx normal HEAD & SCALP: normocephalic (Faint erythema and crusted lesions noted right scalp) FACE & SINUS IMAGES: 1. Area of faint erythema with crusted lesions scattered no involvement of nose or ear NOSE: Normal nasal mucous membranes and turbinates present Eye: COMMON NORMALS: Equal, round and reactive pupils present, EOMs intact bilaterally, conjunctivae normal and no scleral icterus VISUAL ACUITY: Yes other (Able to count fingers bilaterally and independently) CONJUNCTIVA: Yes conjunctivae normal PUPIL: Yes Equal, round and reactive pupils present Neck/C-Spine: COMMON NORMALS: full ROM, no lymphadenopathy, supple, no JVD and No carotid bruits Chest: COMMONS NORMALS: normal inspection of the chest Resp: COMMON NORMALS: normal respiratory effort, No retractions and No use of accessory muscles AUSCULTATION: diminished lung sounds (Bases bilaterally) Cardio: COMMON NORMALS: no JVD, regular rate, regular rhythm, No murmurs present (Cardio) and Peripheral pulses 2+ throughout RATE: regular rate RHYTHM: regular rhythm PERIPHERAL PULSES: Peripheral pulses 2+ throughout GI: COMMON NORMALS: Soft to palpation INSPECTION: Yes abdominal distension PALPATION: Yes Soft to palpation, No Firmness to palpation present (GI), Yes Tenderness to palpation present (GI), No Guarding due to palpation present (GI) and No Rigid due to palpation Back/Pelvis: COMMON NORMALS: thoracic and lumbar spine normal to inspection, no thoracic nor lumbar tenderness and straight leg raise negative bilaterally Extremity: COMMON NORMALS: capillary refill normal and no calf tenderness NARRATIVE EXTREMITY EXAM: Upper extremities are unremarkable other than a small abrasion to the right lateral elbow. Normal range of motion no deformity able to pronate and supinate normally. Both lower extremities remarkable for nonpitting edema to distal legs and feet. No erythema. No fissuring. Able to move both lower extremities but exhibits generalized muscle weakness. Neuro: COMMON NORMALS: patient oriented x3, moves all extremities, no focal motor deficits and no sensory deficits noted Psych: COMMON NORMALS: mental status grossly normal Skin: RASHES: rashes noted (Crusted lesions to the right scalp and forehead.) TRAUMA: abrasion (Right lateral elbow) Course Reevaluation(s): Reevaluation #1: Patient reevaluated. He remains alert and cooperative. No new findings on reevaluation. His abdomen is soft and he really has no rebound guarding or other concerning findings on reevaluation. Reviewed current findings and they are all reassuring. CT imaging reveals no evidence of acute intra-abdominal process. Laboratories are also reassuring. We will go ahead and initiate first dose of antivirals for his zoster. No nasal involvement and no evidence at this time of corneal involvement. He does have an ophthalmology appointment 3 days. Stable at this time. Time: 15:25 Vital Signs: Vital signs: Vital Signs Temperature 98.6 F 05/06/22 13:17 Pulse Rate 75 05/06/22 13:20 Respiratory Rate 18 05/06/22 13:20 Blood Pressure 132/86 05/06/22 13:20 Pulse Oximetry 92 05/06/22 13:20 Oxygen Delivery Me thod 05/06/22 13:20 MDM - Weakness Medical Decision Making Patient who presented to the emergency department due to symptoms of global weakness. He was evaluated in the emergency department and found to have no evidence of an acute medical condition other than his zoster. We will initiate treatment for that condition. No evidence at this time that he has ophthalmologic involvement. He received IV hydration and further evaluation to ensure no evidence of biochemical pertubation, intra-abdominal process etc. All his findings were reassuring in the emergency department. He has chronic degenerative spine disease, spinal stenosis and chronic lower extremity weakness that requires him to use a motorized wheelchair. There was no new or focal weakness noted while in the emergency department. He is stable at this time to be discharged with return precautions. Medical Records I reviewed the patient's medical records. Review of past records reveal he has a history of spinal stenosis and other spinal disease as well as a history of urinary retention all of which are likely related to his debility, chronic lower extremity weakness and use of motorized wheelchair. Nothing about his history suggest anything acute or recent. Lab Data I reviewed the patient's lab results. 05/06/22 13:45 05/06/22 13:45 Radiology Impressions Chest X-Ray 05/06/22 13:31 IMPRESSION: No acute findings. Abdomen/Pelvis CT 05/06/22 13:37 IMPRESSION: 1. No acute findings. 2. Moderate lower lumbar degenerative disease. 3. Incidental findings above. COMMENTS: Consistent with the [employer]'s Incidental Findings Committee white paper (J Am Didier Radiol 2018): Any incidental renal lesion less than 1 cm or classified as too small to characterize, or any incidental cystic renal lesion characterized as simple-appearing, is likely benign. No follow-up imaging is recommended for these lesions per consensus recommendations based on imaging criteria. Laboratory Results WBC 10.4 10^3/uL (4.0-10.0) H 05/06/22 13:45 RBC 3.87 10^6/uL (4.1-5.3) L 05/06/22 13:45 Hgb 12.6 g/dL (11.7-16.6) 05/06/22 13:45 Hct 38.9 % (42.0-52.0) L 05/06/22 13:45 MCV 100.5 fl (80-94) H 05/06/22 13:45 MCH 32.6 pg (28.0-34.0) 05/06/22 13:45 MCHC 32.4 g/dL (30.0-36.0) 05/06/22 13:45 RDW 14.5 % (12.1-15.1) 05/06/22 13:45 Plt Count 232 10^3/cmm (130-400) 05/06/22 13:45 MPV 10.4 fL (7.4-10.4) 05/06/22 13:45 Neut % (Auto) 76.7 % 05/06/22 13:45 Lymph % (Auto) 11.1 % 05/06/22 13:45 [place] % (Auto) 11.3 % 05/06/22 13:45 Eos % (Auto) 0.0 % 05/06/22 13:45 Baso % (Auto) 0.4 % 05/06/22 13:45 Neut # (Auto) 7.99 10^3/uL (1.8-7.7) H 05/06/22 13:45 Lymph # (Auto) 1.2 10^3/uL (0.8-4.8) 05/06/22 13:45 [place] # (Auto) 1.2 10^3/uL (0.2-0.9) H 05/06/22 13:45 Eos # (Auto) 0.0 10^3/uL (0.0-0.8) 05/06/22 13:45 Baso # (Auto) 0.0 10^3/uL (0.0-0.1) 05/06/22 13:45 Nucleated RBC % (auto) 0 % 05/06/22 13:45 Nucleated RBCs # 0.0 /100WBC 05/06/22 13:45 Sodium 140 mmol/L (136-145) 05/06/22 13:45 Potassium 4.2 mmol/L (3.5-5.1) 05/06/22 13:45 Chloride 100 mmol/L (98-107) 05/06/22 13:45 Carbon Dioxide 27 mmol/L (22-29) 05/06/22 13:45 Anion Gap 17.2 (5-19) 05/06/22 13:45 BUN 14 mg/dL (8-23) 05/06/22 13:45 Creatinine 1.0 mg/dL (0.7-1.2) 05/06/22 13:45 GFR Calculation Not Reportable 05/06/22 13:45 Glucose 98 mg/dL (65-115) 05/06/22 13:45 Calculated Osmolality 290 mOsm/kg (285-295) 05/06/22 13:45 Calcium 9.6 mg/dL (8.5-10.5) 05/06/22 13:45 Total Bilirubin 0.3 mg/dL (0.15-1.2) 05/06/22 13:45 AST 27 U/L (0-40) 05/06/22 13:45 ALT 21 U/L (0-41) 05/06/22 13:45 Alkaline Phosphatase 75 U/L (40-130) 05/06/22 13:45 Total Protein 7.0 g/dL (6.6-8.7) 05/06/22 13:45 Albumin 4.1 g/dL (3.5-5.2) 05/06/22 13:45 Globulin 2.9 g/dL (1.3-4.6) 05/06/22 13:45 EKG Data EKG 1: I personally reviewed and interpreted this EKG as follows: Interpretation: Contemporaneous review of this EKG reveals ventricular rate of 71 bpm. Normal AR interval, QRS duration, corrected QT interval. Marcus are within normal limits. Q waves are noted in 2 and aVF as well as V45 and 6 indicative of possible old myocardial infarction. No acute ST-T wave changes noted. Discharge Plan Discharge Patient Disposition: Home Clinical Impression: Zoster, Multilevel degenerative disc disease, Central spinal stenosis Condition: Stable Prescriptions: New acyclovir 800 mg tablet 800 mg PO 5XD 5 Days Qty: 25 0RF Rx Instructions: space evenly during waking hours No Action methenamine hippurate 1 gram tablet 1 gm PO BID Qty: 60 12RF Rx Instructions: take with 1000mg Vitamin C Asmanex HFA 100 mcg/actuation HFA aerosol inhaler 2 puff inhalation BID 30 Days Qty: 13 4RF Stiolto Respimat 2.5-2.5 mcg/actuation mist 2 puff inhalation DAILY bisacodyl 5 mg tablet 5 mg PO DAILY PRN (Reason: constipation) Qty: 30 0RF tamsulosin [Flomax] 0.4 mg Capsule 0.8 mg PO BEDTIME omeprazole 20 mg Capsule,Delayed Release(Dr/Ec) 20 mg PO BID fluoxetine [Prozac] 20 mg Capsule 60 mg PO DAILY sennosides-docusate sodium [Senna-S] 8.6-50 mg Tablet 2 tab PO BID PRN (Reason: Constipation) ascorbic acid (vitamin C) [Vitamin C] 500 mg Tablet 1,000 mg PO BID guaifenesin 400 mg Tablet 400 mg PO TID PRN (Reason: cough) pregabalin [Lyrica] 100 mg Capsule 100 mg PO BEDTIME Ensure Plus 0.05-1.5 gram-kcal/mL Liquid 1 ea PO BID acetaminophen 500 mg Tablet 500 mg PO QID MDD SEE PHARMACY COMMENT PRN (Reason: Pain) Qty: 0 0RF ipratropium-albuterol 0.5 mg-3 mg(2.5 mg base)/3 mL Solution For Nebulization See Rx Instructions .ROUTE .COMPLEX PRN (Reason: shortness of breath) Qty: 0 0RF Rx Instructions: ONE VIAL QID DIRECTED Depakote ER 500 mg Tablet Extended Release 24 Hr 500 mg PO BEDTIME furosemide 20 mg Tablet 20 mg PO DAILY ProAir HFA 90 mcg/actuation Hfa Aerosol Inhaler 2 puff INHALATION Q6H PRN (Reason: Shortness Of Breath) ferrous gluconate 324 mg (36 mg iron) Tablet 324 mg PO DAILY Cardizem CD 180 mg capsule,extended release 24hr 180 mg PO Q24H Discharge Orders: Discharge ED (Routine); Ordered 05/06/22 Ordered By: Thee Cardoso Referrals: Janet Martinez, SENIOR IT ASSISTANT [Primary Care Provider] - Discharge Diet: Advance as tolerated Discharge Activity: Increase activity as tolerated Patient Instructions: Opioid Safety, Pain Management Activity Restrictions/Additional Instructions: As we discussed you have shingles or also called zoster of the right forehead. We have prescribed an antiviral medication to help treat this condition. It is important for you to drink plenty of fluids and eat a normal diet. Continue all your usual medications. Follow-up with your eye doctor this coming week as scheduled. If you develop any new or worsening or persistent symptoms return to this or the nearest emergency department. Coding Level of Care Code ED Casting Repairer for Azam Adamson
--- NOTE | 2022-05-06 13:37 | CTR_ITS ---
PROCEDURE INFORMATION: Exam: CT Abdomen And Pelvis With Contrast Exam date and time: 05/06/2022 3:00 PM Age: 76 years old Clinical indication: Abdominal pain and other: Low back; Generalized; Prior surgery; Additional info: Weakness and abd pain TECHNIQUE: Imaging protocol: Computed tomography of the abdomen and pelvis with contrast. Radiation optimization: All CT scans at this facility use at least one of these dose optimization techniques: automated exposure control; mA and/or kV adjustment per patient size (includes targeted exams where dose is matched to clinical indication); or iterative reconstruction. Contrast material: OMNI 350; Contrast volume: 100 ml; Contrast route: INTRAVENOUS (IV); Other protocol: This patient has received 0 known CTs and 0 known cardiac nuclear medicine studies in the 12 months prior to the current study. COMPARISON: CT abdomen pelvis wo con [id number] 09/30/2019 4:48 PM RADIATION DOSE METRICS: Total DLP (mGy-cm): 390.64 FINDINGS: Tubes, catheters and devices: The suprapubic catheter is appropriately positioned with the tip in the urinary bladder. Lungs: Lung bases are clear. Diaphragm: There is a small sliding-type hiatal hernia. Liver: The liver is normal. Gallbladder and bile ducts: The gallbladder is absent. There is ectasia of the common bile duct and central intrahepatic ducts. Pancreas: There is mild atrophy of the pancreas. Spleen: The spleen is unremarkable. Adrenal glands: The adrenal glands are unremarkable. Kidneys and ureters: There are simple cysts in both kidneys. There is no hydronephrosis or stones. Stomach and bowel: The stomach is decompressed, preventing meaningful evaluation of wall thickness. The small bowel is nondilated. The colon is unremarkable. Appendix: The appendix is normal. Intraperitoneal space: There is no free air or significant intraperitoneal free fluid. Vasculature: There is moderate aortic atherosclerotic disease. The portal, splenic and superior mesenteric veins are patent. Lymph nodes: There is no lymphadenopathy in the retroperitoneum, mesentery, pelvis or inguinal regions. Urinary bladder: The urinary bladder is decompressed, preventing meaningful evaluation of wall thickness. Reproductive: The prostate and seminal vesicles are unremarkable. Bones/joints: There is moderate degenerative disease in the lower lumbar spine. There is a chronic compression fracture at L1. The pelvis and hips are unremarkable. Soft tissues: There is a small fat containing umbilical hernia. CT/CT abdomen pelvis w con* [id number] IMPRESSION: 1. No acute findings. 2. Moderate lower lumbar degenerative disease. 3. Incidental findings above. COMMENTS: Consistent with the [place] [employer]'s Incidental Findings Committee white paper (J Am Didier Radiol 2018): Any incidental renal lesion less than 1 cm or classified as too small to characterize, or any incidental cystic renal lesion characterized as simple-appearing, is likely benign. No follow-up imaging is recommended for these lesions per consensus recommendations based on imaging criteria.
[2022-05-06] MEDS: sodium chloride 0.9% 1,000 ML 999 ML IV (13:42)
[2022-05-06 13:59] LABS: Basophils % 0.4 %; Hematocrit 38.9 % (42.0-52.0); Hemoglobin 12.6 g/dL (11.7-16.6); Lymphocytes # 1.2 10^3/uL (0.8-4.8); Lymphocytes % 11.1 %; Mean Corpuscular HGB Conc 32.4 g/dL (30.0-36.0); Mean Corpuscular Hemoglobin 32.6 pg (28.0-34.0); Mean Corpuscular Volume 100.5 fl (80-94); Mean Platelet Volume 10.4 fL (7.4-10.4); Monocytes # 1.2 10^3/uL (0.2-0.9); Monocytes % 11.3 %; Neutrophils # 7.99 10^3/uL (1.8-7.7); Neutrophils % 76.7 %; Nucleated Red Blood Cells % 0 %; Platelet Count 232 10^3/cmm (130-400); Red Blood Count 3.87 10^6/uL (4.1-5.3); Red Cell Distribution Width 14.5 % (12.1-15.1); White Blood Count 10.4 10^3/uL (4.0-10.0)
[2022-05-06 14:14] LABS: Alanine Aminotransferase 21 U/L (0-41); Albumin Level 4.1 g/dL (3.5-5.2); Alkaline Phosphatase 75 U/L (40-130); Anion Gap 17.2 (5-19); Aspartate Amino Transferase 27 U/L (0-40); Blood Urea Nitrogen 14 mg/dL (8-23); Calcium 9.6 mg/dL (8.5-10.5); Carbon Dioxide 27 mmol/L (22-29); Chloride 100 mmol/L (98-107); Globulin 2.9 g/dL (1.3-4.6); Glucose 98 mg/dL (65-115); Osmolality Calculated 290 mOsm/kg (285-295); Potassium 4.2 mmol/L (3.5-5.1); Sodium 140 mmol/L (136-145); Total Bilirubin 0.3 mg/dL (0.15-1.2)
--- NOTE | 2022-05-06 14:38 | ECG_ITS ---
[facility] Test Date: 2022-05-06 Pat Name: Michael Herrera Department: Room: Gender: Male General Cargo Clerk: : 1945 Requested By: Thee Cardoso Order Number: [id number] Vadim MD: Josesito Hernández M.D. Measurements Intervals [place] Rate: 71 P: 93 UT: 189 QRS: -12 QRSD: 102 T: 84 QT: 342 QTc: 373 Interpretive Statements SINUS RHYTHM POSSIBLE LATERAL MYOCARDIAL INFARCTION , OF INDETERMINATE AGE [30 ms Q WAVE IN I/aVL/V5/V6] PROBABLE INFERIOR MYOCARDIAL INFARCTION , PROBABLY OLD [35 ms Q WAVE IN II/aVF] Compared to ECG 10/18/2021 11:59:35 No significant changes Electronically Signed On 05-06-2022 15:19:53 EMBROIDERY WORKER by Josesito Hernández M.D. [email or web address]
[2022-05-06] MEDS: iohexol 350 mg/mL 500 mL Btl (per mL) IV (15:05)
[2022-05-06] MEDS: acyclovir 400 mg Tablet 800 MG PO (16:13)
[2022-05-06 16:25] VITALS: BP 132/86; PULSE 75; RESP 18; O2SAT 92
== END 2022-05-06 16:56 | disposition home or self-care (01) ==
PROVIDERS: Emergency Provider Emergency Medicine; PCP Nurse Practitioner Family
DX: B02.9 Zoster without complications (principal); M51.36 Other intervertebral disc degeneration, lumbar region; M48.02 Spinal stenosis, cervical region; F17.210 Nicotine dependence, cigarettes, uncomplicated; J44.9 Chronic obstructive pulmonary disease, unspecified; Z86.73 Personal history of transient ischemic attack (TIA), and cerebral infarction without residual deficits
CPT/HCPCS: 71045; 74177; 80053; 85025; 93005; 99285; J7030; J8499; Q9967

== ENCOUNTER 2022-05-07 06:15 | Emergency (ER) | payer OTHER, SELFPAY ==
[2022-05-07 06:17] VITALS: BP 157/80; PULSE 82; RESP 16; TEMP 36.7; O2SAT 95; BMI 20.2
--- NOTE | 2022-05-07 06:23 | W.ED.GENADLT ---
HPI - General Adult General: Chief complaint: General Medical Stated complaint: HEADAHCE/RIGHT SIDED FACE PAIN Time Seen by Provider: 05/07/22 06:18 Source: patient and EMS Mode of arrival: EMS Limitations: no limitations History of Present Illness: 76-year-old male who was diagnosed with shingles right side of his face yesterday he states he is continue to have pain he states he also has had diarrhea since starting the acyclovir he rates his facial pain a 7 out of 10 denies any vomiting or abdominal pain denies any vision changes Associated symptoms: Deny chest pain, dyspnea, headache(s) or rash Review of Systems Const: Denies: fever(s), chills, body aches or change in appetite Eyes: Denies: blurry vision or eye discomfort ENMT: Denies: throat pain or dental pain Card: Denies: chest pain Resp: Denies: dyspnea GI: Reports: diarrhea : Denies: dysuria Musc: Denies: neck pain or back pain Skin/Breast: Denies: rash Neuro: Denies: headache(s) Psych: Denies: depression Tae/Lymph: Denies: easy bruising All/Imm: Denies: urticaria PFSH ED PFSH: Medical History Ascending aortic aneurysm Bradycardia Chronic back pain Chronic neck pain Compression fracture of L1 lumbar vertebra COPD (chronic obstructive pulmonary disease) CVA (cerebral vascular accident) Cystitis with hematuria GERD (gastroesophageal reflux disease) HTN (hypertension) Macrocytic anemia Multilevel degenerative disc disease Self-catheterizes urinary bladder Spinal stenosis, site unspecified Urinary retention Surgical History H/O laminectomy L5-S1 HEMILANIECTOMIES H/O shoulder surgery H/O spinal fusion C5-C6 History of cystoscopy in 01/2019 -chronic inflammatory changes, bladder diverticuli Hx laparoscopic cholecystectomy S/P ureteral stent placement Family History Father CAD (coronary artery disease) Social History Smoking and tobacco status: current every day smoker cigarettes Packs smoked per day: 1 Years cigarettes smoked: 60 Quit status (tobacco): not considering quitting Second hand smoke exposure: Yes Smoking risk assessment/counseling performed?: Yes Alcohol intake: never Caregiver/support person: Yes Lives independently: Yes Household members: none Marital status: service: Yes Current occupational status: disabled History of recent travel: No Current gender identity: Male Physical Exam Const: COMMON NORMALS: no acute distress, patient oriented x3 and healthy appearing HENMT: COMMON NORMALS: normocephalic and atraumatic HEAD & SCALP: normocephalic and atraumatic OTHER: Shingles to the right side of the face Eye: COMMON NORMALS: Equal, round and reactive pupils present and EOMs intact bilaterally PUPIL: Yes Equal, round and reactive pupils present Neck/C-Spine: COMMON NORMALS: full ROM and supple Chest: COMMONS NORMALS: normal inspection of the chest and normal palpation of entire chest wall Resp: COMMON NORMALS: normal respiratory effort, No retractions, No use of accessory muscles and clear to auscultation bilaterally AUSCULTATION: clear to auscultation bilaterally Cardio: COMMON NORMALS: regular rate, regular rhythm and No murmurs present (Cardio) RATE: regular rate RHYTHM: regular rhythm GI: COMMON NORMALS: Normal to inspection, nondistended, normoactive bowel sounds present, Soft to palpation, non-tender and no masses PALPATION: Yes Soft to palpation Extremity: COMMON NORMALS: normal to inspection and full ROM Neuro: COMMON NORMALS: patient oriented x3, moves all extremities and no focal motor deficits Psych: COMMON NORMALS: mental status grossly normal, Normal thought process present and cooperative THOUGHT PROCESS: Normal thought process present Skin: COMMON NORMALS: no rashes or lesions noted and no wounds GENERAL SKIN EXAM: no rashes or lesions noted Course Vital Signs: Vital signs: Vital Signs Temperature 98.1 F 05/07/22 06:17 Pulse Rate 82 05/07/22 06:17 Respiratory Rate 16 05/07/22 06:17 Blood Pressure 157/80 05/07/22 06:17 Pulse Oximetry 95 05/07/22 06:17 Oxygen Delivery Me thod 05/07/22 06:17 [facility] - General Adult Medical Decision Making Patient presents here with shingles to the right side of his face he had complained of diarrhea as well he has been well-appearing here blood works normal we will give him fluids and pain meds he is stable for discharge he has no signs of ocular involvement. Lab Data 05/07/22 06:44 02 06:44 Laboratory Results WBC 11.0 10^3/uL (4.0-10.0) H 05/07/22 06:44 RBC 3.43 10^6/uL (4.1-5.3) L 05/07/22 06:44 Hgb 11.3 g/dL (11.7-16.6) L 05/07/22 06:44 Hct 34.1 % (42.0-52.0) L 05/07/22 06:44 MCV 99.4 fl (80-94) H 05/07/22 06:44 MCH 32.9 pg (28.0-34.0) 05/07/22 06:44 MCHC 33.1 g/dL (30.0-36.0) 05/07/22 06:44 RDW 14.3 % (12.1-15.1) 05/07/22 06:44 Plt Count 219 10^3/cmm (130-400) 05/07/22 06:44 MPV 10.8 fL (7.4-10.4) H 05/07/22 06:44 Neut % (Auto) 72.8 % 05/07/22 06:44 Lymph % (Auto) 14.1 % 05/07/22 06:44 [place] % (Auto) 12.4 % 05/07/22 06:44 Eos % (Auto) 0.1 % 05/07/22 06:44 Baso % (Auto) 0.3 % 05/07/22 06:44 Neut # (Auto) 8.02 10^3/uL (1.8-7.7) H 05/07/22 06:44 Lymph # (Auto) 1.6 10^3/uL (0.8-4.8) 05/07/22 06:44 [place] # (Auto) 1.4 10^3/uL (0.2-0.9) H 05/07/22 06:44 Eos # (Auto) 0.0 10^3/uL (0.0-0.8) 05/07/22 06:44 Baso # (Auto) 0.0 10^3/uL (0.0-0.1) 05/07/22 06:44 Nucleated RBC % (auto) 0 % 05/07/22 06:44 Nucleated RBCs # 0.0 /100WBC 05/07/22 06:44 Sodium 136 mmol/L (136-145) 05/07/22 06:44 Potassium 3.4 mmol/L (3.5-5.1) L 05/07/22 06:44 Chloride 99 mmol/L (98-107) 05/07/22 06:44 Carbon Dioxide 25 mmol/L (22-29) 05/07/22 06:44 Anion Gap 15.4 (5-19) 05/07/22 06:44 BUN 18 mg/dL (8-23) 05/07/22 06:44 Creatinine 1.1 mg/dL (0.7-1.2) 05/07/22 06:44 GFR Calculation Not Reportable 05/07/22 06:44 Glucose 98 mg/dL (65-115) 05/07/22 06:44 Calculated Osmolality 284 mOsm/kg (285-295) L 05/07/22 06:44 Calcium 9.2 mg/dL (8.5-10.5) 05/07/22 06:44 Total Bilirubin 0.3 mg/dL (0.15-1.2) 05/07/22 06:44 AST 35 U/L (0-40) 05/07/22 06:44 ALT 21 U/L (0-41) 05/07/22 06:44 Alkaline Phosphatase 69 U/L (40-130) 05/07/22 06:44 Total Protein 6.0 g/dL (6.6-8.7) L 05/07/22 06:44 Albumin 3.4 g/dL (3.5-5.2) L 05/07/22 06:44 Globulin 2.6 g/dL (1.3-4.6) 05/07/22 06:44 Discharge Plan Discharge Patient Disposition: Home Clinical Impression: Shingles, Diarrhea Condition: Stable Prescriptions: No Action methenamine hippurate 1 gram tablet 1 gm PO BID Qty: 60 12RF Rx Instructions: take with 1000mg Vitamin C Asmanex HFA 100 mcg/actuation HFA aerosol inhaler 2 puff inhalation BID 30 Days Qty: 13 4RF Stiolto Respimat 2.5-2.5 mcg/actuation mist 2 puff inhalation DAILY bisacodyl 5 mg tablet 5 mg PO DAILY PRN (Reason: constipation) Qty: 30 0RF tamsulosin [Flomax] 0.4 mg Capsule 0.8 mg PO BEDTIME omeprazole 20 mg Capsule,Delayed Release(Dr/Ec) 20 mg PO BID fluoxetine [Prozac] 20 mg Capsule 60 mg PO DAILY sennosides-docusate sodium [Senna-S] 8.6-50 mg Tablet 2 tab PO BID PRN (Reason: Constipation) ascorbic acid (vitamin C) [Vitamin C] 500 mg Tablet 1,000 mg PO BID guaifenesin 400 mg Tablet 400 mg PO TID PRN (Reason: cough) pregabalin [Lyrica] 100 mg Capsule 100 mg PO BEDTIME Ensure Plus 0.05-1.5 gram-kcal/mL Liquid 1 ea PO BID acetaminophen 500 mg Tablet 500 mg PO QID MDD SEE PHARMACY COMMENT PRN (Reason: Pain) Qty: 0 0RF ipratropium-albuterol 0.5 mg-3 mg(2.5 mg base)/3 mL Solution For Nebulization See Rx Instructions .ROUTE .COMPLEX PRN (Reason: shortness of breath) Qty: 0 0RF Rx Instructions: ONE VIAL QID DIRECTED Depakote ER 500 mg Tablet Extended Release 24 Hr 500 mg PO BEDTIME furosemide 20 mg Tablet 20 mg PO DAILY ProAir HFA 90 mcg/actuation Hfa Aerosol Inhaler 2 puff INHALATION Q6H PRN (Reason: Shortness Of Breath) ferrous gluconate 324 mg (36 mg iron) Tablet 324 mg PO DAILY Cardizem CD 180 mg capsule,extended release 24hr 180 mg PO Q24H acyclovir 800 mg tablet 800 mg PO 5XD 5 Days Qty: 25 0RF Rx Instructions: space evenly during waking hours Discharge Orders: Discharge ED (Routine); Ordered 05/07/22 Ordered By: Evin Arias Referrals: Janet Martinez FNP [Primary Care Provider] - Discharge Diet: Advance as tolerated Discharge Activity: Resume usual activity Patient Instructions: Mignon (ED) Coding Level of Care Code ED Cocktail Waitress for Azam Adamson
[2022-05-07] MEDS: morphine 4 mg/mL SDV 1 mL IVP (06:50)
[2022-05-07] MEDS: ondansetron 2 mg/ML SDV 2 mL 4 MG IVP (06:50)
[2022-05-07] MEDS: sodium chloride 0.9% 1,000 ML 999 ML IV (06:50)
[2022-05-07 06:53] LABS: Basophils % 0.3 %; Eosinophils % 0.1 %; Hematocrit 34.1 % (42.0-52.0); Hemoglobin 11.3 g/dL (11.7-16.6); Lymphocytes # 1.6 10^3/uL (0.8-4.8); Lymphocytes % 14.1 %; Mean Corpuscular HGB Conc 33.1 g/dL (30.0-36.0); Mean Corpuscular Hemoglobin 32.9 pg (28.0-34.0); Mean Corpuscular Volume 99.4 fl (80-94); Mean Platelet Volume 10.8 fL (7.4-10.4); Monocytes # 1.4 10^3/uL (0.2-0.9); Monocytes % 12.4 %; Neutrophils # 8.02 10^3/uL (1.8-7.7); Neutrophils % 72.8 %; Nucleated Red Blood Cells % 0 %; Platelet Count 219 10^3/cmm (130-400); Red Blood Count 3.43 10^6/uL (4.1-5.3); Red Cell Distribution Width 14.3 % (12.1-15.1)
[2022-05-07 07:15] LABS: Alanine Aminotransferase 21 U/L (0-41); Albumin Level 3.4 g/dL (3.5-5.2); Alkaline Phosphatase 69 U/L (40-130); Anion Gap 15.4 (5-19); Aspartate Amino Transferase 35 U/L (0-40); Blood Urea Nitrogen 18 mg/dL (8-23); Calcium 9.2 mg/dL (8.5-10.5); Carbon Dioxide 25 mmol/L (22-29); Chloride 99 mmol/L (98-107); Globulin 2.6 g/dL (1.3-4.6); Glucose 98 mg/dL (65-115); Osmolality Calculated 284 mOsm/kg (285-295); Potassium 3.4 mmol/L (3.5-5.1); Sodium 136 mmol/L (136-145); Total Bilirubin 0.3 mg/dL (0.15-1.2)
[2022-05-07 08:09] VITALS: BP 150/88; PULSE 78; RESP 16; O2SAT 95
== END 2022-05-07 08:10 | disposition home or self-care (01) ==
PROVIDERS: Emergency Provider Emergency Medicine; PCP Nurse Practitioner Family
DX: B02.9 Zoster without complications (principal); R19.7 Diarrhea, unspecified; F17.210 Nicotine dependence, cigarettes, uncomplicated; J44.9 Chronic obstructive pulmonary disease, unspecified; Z86.73 Personal history of transient ischemic attack (TIA), and cerebral infarction without residual deficits; I10 Essential (primary) hypertension
CPT/HCPCS: 80053; 85025; 96361; 96374; 96375; 99284; J2270; J2405; J7030

== ENCOUNTER 2022-05-19 06:57 | Emergency (ER) | payer OTHER, SELFPAY ==
[2022-05-19] VITALS (13 sets, daily range): BP systolic 131–165; BP diastolic 79–85; PULSE 68–80; RESP 15–28; TEMP 36.4; O2SAT 95–100
--- NOTE | 2022-05-19 07:05 | W.ED.CHESTPA ---
HPI - Chest Pain General: Chief Complaint: Chest Pain Stated Complaint: chest pain/ diaphoretic Time Seen by Provider: 05/19/22 07:01 Source: patient Mode of arrival: ambulatory History of Present Illness: 76-year-old male presents emergency room complaining of weakness chest discomfort and diaphoresis he has had this for the last 2 days. He been having diarrhea for the last week. 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 He had a difficult time driving that far. States he is hallucinating seeing objects in the road was diaphoretic and weak. He has a nephrostomy which she states is maintained good output at one-point he was having some diarrhea [employer] parked in a [employer] parking lot he used a trash bag and then threw it in a dumpster. He denies any medic easy melena hematemesis cough, emesis no fever sweats or chills or chest pain at this time. He still feels lightheaded and weak denies any shortness of breath Onset (ago): day(s) Timing of current episode: episodic Prior episodes: Yes Onset: during rest Pain location: left chest Pain radiation: none Severity: mild Relieving factors: nothing Exacerbating factors: nothing Associated symptoms: Deny abdominal pain, diaphoresis, dyspnea, fever(s), leg edema, nausea, palpitations, sense of impending doom, syncope or vomiting Review of Systems Const: Denies: fever(s), chills or diaphoresis ENMT: Denies: throat pain, ear or mastoid pain, nasal discharge or nasal congestion Card: Reports: chest pain; Denies: palpitations, irregular heart rhythm, edema, swelling of feet/ankles or syncope Resp: Denies: dyspnea GI: Denies: abdominal pain, nausea or vomiting : Denies: flank pain, dysuria, urinary frequency or urinary urgency Skin/Breast: Denies: rash or pruritus PFS ED PFSH: Medical History Ascending aortic aneurysm Bradycardia Chronic back pain Chronic neck pain Compression fracture of L1 lumbar vertebra COPD (chronic obstructive pulmonary disease) CVA (cerebral vascular accident) Cystitis with hematuria GERD (gastroesophageal reflux disease) HTN (hypertension) Macrocytic anemia Multilevel degenerative disc disease Self-catheterizes urinary bladder Spinal stenosis, site unspecified Urinary retention Surgical History H/O laminectomy L5-S1 HEMILANIECTOMIES H/O shoulder surgery H/O spinal fusion C5-C6 History of cystoscopy in 01/2019 -chronic inflammatory changes, bladder diverticuli Hx laparoscopic cholecystectomy S/P ureteral stent placement Family History Father CAD (coronary artery disease) Social History Smoking and tobacco status: current every day smoker cigarettes Packs smoked per day: 1 Years cigarettes smoked: 60 Quit status (tobacco): not considering quitting Second hand smoke exposure: Yes Smoking risk assessment/counseling performed?: Yes Alcohol intake: never Caregiver/support person: Yes Lives independently: Yes Household members: none Marital status: service: Yes Current occupational status: disabled Current gender identity: Male Physical Exam Const: GENERAL APPEARANCE: cooperative and comfortable ORIENTATION/CONSCIOUSNESS: Yes awake, Yes oriented to person, Yes oriented to place and Yes oriented to time HENMT: COMMON NORMALS: normocephalic, atraumatic and hearing grossly normal bilaterally HEAD & SCALP: normocephalic and atraumatic Resp: COMMON NORMALS: normal respiratory effort, No retractions, No use of accessory muscles and clear to auscultation bilaterally AUSCULTATION: clear to auscultation bilaterally Cardio: COMMON NORMALS: regular rate, regular rhythm and No murmurs present (Cardio) RATE: regular rate RHYTHM: regular rhythm GI: COMMON NORMALS: Soft to palpation and No hepatosplenomegaly present AUSCULTATION: Yes normoactive bowel sounds PALPATION: Yes Soft to palpation, No Tenderness to palpation present (GI), No Guarding due to palpation present (GI) and Yes No hepatosplenomegaly present Extremity: COMMON NORMALS: normal to inspection and capillary refill normal GENERAL: Yes edema (2+ edema lower extremities to the level of the knee) Neuro: SENSORIUM/ORIENTATION: Yes oriented to person, Yes oriented to place and Yes oriented to time Skin: COMMON NORMALS: no rashes or lesions noted GENERAL SKIN EXAM: no rashes or lesions noted Course Vital Signs: Vital signs: Vital Signs Temperature 97.6 F 05/19/22 07:00 Pulse Rate 77 05/19/22 13:31 Respiratory Rate 20 H 05/19/22 13:31 Blood Pressure 158/85 05/19/22 13:31 Pulse Oximetry 95 05/19/22 13:31 Oxygen Delivery Me thod 05/19/22 12:36 Oxygen Flow Rate 2 05/19/22 07:28 MDM - Chest Pain Medical Decision Making Atypical chest pain no widening mediastinum no pneumothorax or pneumonia or mass on the chest x-ray. He serial enzymes were unremarkable and EKG showed no acute changes. He did have some hypokalemia which improved after supplementation we will discharge patient home with oral supplements. Patient found to have an incidental cystitis which she was treated for. We will have case management make arrangements for an outpatient stress test if his symptoms worsen or change return to the emergency room. Needs follow-up with primary care for a recheck on his potassium within the next week. Medical Records I reviewed the patient's medical records. Lab Data I reviewed the patient's lab results. 05/19/22 07:53 05/19/22 07:53 Radiology Impressions Chest X-Ray 05/19/22 07:31 IMPRESSION: 1. No acute cardiopulmonary finding. No change. Laboratory Results WBC 12.4 10^3/uL (4.0-10.0) H 05/19/22 07:53 RBC 3.41 10^6/uL (4.1-5.3) L 05/19/22 07:53 Hgb 11.1 g/dL (11.7-16.6) L 05/19/22 07:53 Hct 34.0 % (42.0-52.0) L 05/19/22 07:53 MCV 99.7 fl (80-94) H 05/19/22 07:53 MCH 32.6 pg (28.0-34.0) 05/19/22 07:53 MCHC 32.6 g/dL (30.0-36.0) 05/19/22 07:53 RDW 13.9 % (12.1-15.1) 05/19/22 07:53 Plt Count 558 10^3/cmm (130-400) H 05/19/22 07:53 MPV 9.5 fL (7.4-10.4) 05/19/22 07:53 Neut % (Auto) 81.3 % 05/19/22 07:53 Lymph % (Auto) 10.8 % 05/19/22 07:53 [place] % (Auto) 6.3 % 05/19/22 07:53 Eos % (Auto) 0.8 % 05/19/22 07:53 Baso % (Auto) 0.2 % 05/19/22 07:53 Neut # (Auto) 10.13 10^3/uL (1.8-7.7) H 05/19/22 07:53 Lymph # (Auto) 1.3 10^3/uL (0.8-4.8) 05/19/22 07:53 [place] # (Auto) 0.8 10^3/uL (0.2-0.9) 05/19/22 07:53 Eos # (Auto) 0.1 10^3/uL (0.0-0.8) 05/19/22 07:53 Baso # (Auto) 0.0 10^3/uL (0.0-0.1) 05/19/22 07:53 Nucleated RBC % (auto) 0 % 05/19/22 07:53 Nucleated RBCs # 0.0 /100WBC 05/19/22 07:53 Sodium 139 mmol/L (136-145) 05/19/22 07:53 Potassium 3.3 mmol/L (3.5-5.1) L 05/19/22 11:49 Chloride 96 mmol/L (98-107) L 05/19/22 07:53 Carbon Dioxide 31 mmol/L (22-29) H 05/19/22 07:53 Anion Gap 14.4 (5-19) 05/19/22 07:53 BUN 12 mg/dL (8-23) 05/19/22 07:53 Creatinine 1.0 mg/dL (0.7-1.2) 05/19/22 07:53 GFR Calculation Not Reportable 05/19/22 07:53 Glucose 102 mg/dL (65-115) 05/19/22 07:53 Calculated Osmolality 288 mOsm/kg (285-295) 05/19/22 07:53 Calcium 9.0 mg/dL (8.5-10.5) 05/19/22 07:53 Total Bilirubin 0.3 mg/dL (0.15-1.2) 05/19/22 07:53 AST 12 U/L (0-40) 05/19/22 07:53 ALT 15 U/L (0-41) 05/19/22 07:53 Alkaline Phosphatase 76 U/L (40-130) 05/19/22 07:53 Troponin T Baseline 50 ng/L (0-15) H 05/19/22 07:53 Troponin T 120 Minute 45.36 ng/L (0-15) H 05/19/22 10:10 Delta Troponin T -4.64 ABS# (0-10) L 05/19/22 10:10 NT-Pro-B Natriuret Pep 821 pg/mL (0-450) H 05/19/22 07:53 Total Protein 6.7 g/dL (6.6-8.7) 05/19/22 07:53 Albumin 3.3 g/dL (3.5-5.2) L 05/19/22 07:53 Globulin 3.4 g/dL (1.3-4.6) 05/19/22 07:53 Urine Color Light yellow (Yellow) 05/19/22 11:40 Urine Appearance Hazy (CLEAR) A 05/19/22 11:40 Urine pH 6 (5-7) 05/19/22 11:40 Ur Specific [place] 1.020 (1.005-1.030) 05/19/22 11:40 Urine Protein Trace (Negative) 05/19/22 11:40 Urine Glucose (UA) Norm (Normal) 05/19/22 11:40 Urine Ketones Negative (Negative) 05/19/22 11:40 Urine Blood 3+ (Negative) H 05/19/22 11:40 Urine Nitrate Negative (Negative) 05/19/22 11:40 Urine Bilirubin Neg (Negative) 05/19/22 11:40 Urine Urobilinogen Norm mg/dL (Negative) 05/19/22 11:40 Ur Leukocyte Esterase 2+ (Negative) H 05/19/22 11:40 Urine RBC 0-4 /hpf (0-2) H 05/19/22 11:40 Urine WBC 10-15 /hpf (0-5) H 05/19/22 11:40 Ur Squamous Epith Cells 0-4 /hpf (0-5) H 05/19/22 11:40 Amorphous Sediment 1+ /hpf 05/19/22 11:40 Urine Bacteria 3+ /hpf (NONE) H 05/19/22 11:40 Discharge Plan Discharge Patient Disposition: Home Clinical Impression: Atypical chest pain, Hypokalemia, Cystitis Condition: Stable Prescriptions: New Macrobid 100 mg capsule 100 mg PO BID 7 Days Qty: 14 0RF Rx Instructions: must administer with a meal/food potassium chloride 20 mEq tablet,ER particles/crystals 20 meq PO BID Qty: 20 0RF No Action methenamine hippurate 1 gram tablet 1 gm PO BID Qty: 60 12RF Rx Instructions: take with 1000mg Vitamin C Asmanex HFA 100 mcg/actuation HFA aerosol inhaler 2 puff inhalation BID 30 Days Qty: 13 4RF Stiolto Respimat 2.5-2.5 mcg/actuation mist 2 puff inhalation DAILY bisacodyl 5 mg tablet 5 mg PO DAILY PRN (Reason: constipation) Qty: 30 0RF omeprazole 20 mg Capsule,Delayed Release(Dr/Ec) 20 mg PO QAM fluoxetine [Prozac] 20 mg Capsule 60 mg PO DAILY sennosides-docusate sodium [Senna-S] 8.6-50 mg Tablet 2 tab PO DAILY PRN (Reason: Constipation) ascorbic acid (vitamin C) [Vitamin C] 500 mg Tablet 1,000 mg PO BID guaifenesin 400 mg Tablet 400 mg PO TID PRN (Reason: Congestion) Ensure Plus 0.05-1.5 gram-kcal/mL Liquid 1 ea PO BID divalproex [Depakote ER] 500 mg Tablet Extended Release 24 Hr 500 mg PO BEDTIME albuterol sulfate [ProAir HFA] 90 mcg/actuation Hfa Aerosol Inhaler 2 puff INHALATION Q4H PRN (Reason: Shortness Of Breath) ferrous gluconate 324 mg (38 mg iron) Tablet 324 mg PO DAILY ipratropium-albuterol 0.5 mg-3 mg(2.5 mg base)/3 mL solution for nebulization 3 ml inhalation QID PRN (Reason: shortness of breath) acetaminophen 500 mg tablet 500 - 1,000 mg PO QID PRN (Reason: Pain) hydrocortisone acetate 1 % cream 1 applic TOPICAL TID miconazole nitrate 2 % Aerosol Powder 1 spray TOPICAL TID PRN (Reason: infection) torsemide 10 mg Tablet 10 mg PO DAILY Flonase 50 mcg/actuation [place],Suspension 2 spray INTRANASAL DAILY Rx Instructions: administer into each nostril Vitamin D3 25 mcg (1,000 unit) Tablet 25 mcg PO DAILY Calmoseptine 0.44-20.6 % Ointment 1 applic TOPICAL DAILY Discharge Orders: Discharge ED (Routine); Ordered 05/19/22 Ordered By: Dileep Verduzco Referrals: Janet Martinez FNP [Primary Care Provider] - Discharge Diet: Usual diet Discharge Activity: Limit activity as instructed Patient Instructions: Opioid Safety, Pain Management Activity Restrictions/Additional Instructions: You were seen today for chest pain. Chest pain is resolved your breathing is improved. Your potassium was quite low you are given potassium supplement in the ER and oral potassium supplement to take at home. She is to have your potassium rechecked by your primary care doctor within the next week. You are all set up minor bladder infection you are given initial dose of antibiotics in the emergency room and should start the oral antibiotics tomorrow 1 pill twice a day for a week. Recheck if you have worsening problems. Case management was set up for a stress test. Coding Level of Care Code ED Dialysis Biomed Technician for Azam Adamson
--- NOTE | 2022-05-19 07:18 | ECG_ITS ---
[facility] Test Date: 2022-05-19 Pat Name: Michael Herrera Department: Room: Gender: Male Map Mounter: : 1945 Requested By: Dileep Khan Order Number: [id number] Vadim MD: Kody Galindo M.D. Measurements Intervals [place] Rate: 70 P: 52 DE: 179 QRS: -29 QRSD: 105 T: 70 QT: 416 QTc: 450 Interpretive Statements SINUS RHYTHM LEFT VENTRICULAR HYPERTROPHY AND ST-T CHANGE [VOLTAGE CRITERIA PLUS ST/T ABNORMALITY] PROBABLE LATERAL MYOCARDIAL INFARCTION , OF INDETERMINATE AGE [35 ms Q WAVE IN I/aVL/V5/V6] Compared to ECG 05/06/2022 14:38:13 Left ventricular hypertrophy now present ST (T wave) deviation now present Myocardial infarct finding still present Electronically Signed On 05-19-2022 16:47:04 [employer] by Kody Galindo M.D. [id number]
--- NOTE | 2022-05-19 07:31 | XR_ITS ---
WS: [id number] Exam: XR chest 1V portable [id number] Date/Time of Exam: 05/19/2022 7:33 AM Reason For Exam: chest pain Comparison 05/06/2022. The lungs are clear and fully inflated. Normal cardiomediastinal silhouette. Bilateral apical pleural thickening. Sutures noted at the left AC joint. XR/XR chest 1V portable [id number] IMPRESSION: 1. No acute cardiopulmonary finding. No change.
--- NOTE | 2022-05-19 07:51 | PC.NURSE ---
PT PLACED ON CONTINUOUS NIBP, SPO2, AND CM
--- NOTE | 2022-05-19 07:53 | PC.NURSE ---
PT PLACED ON CONTINUOUS NIBP, SPO2, AND CM
[2022-05-19 08:03] LABS: Basophils % 0.2 %; Eosinophils # 0.1 10^3/uL (0.0-0.8); Eosinophils % 0.8 %; Hemoglobin 11.1 g/dL (11.7-16.6); Lymphocytes # 1.3 10^3/uL (0.8-4.8); Lymphocytes % 10.8 %; Mean Corpuscular HGB Conc 32.6 g/dL (30.0-36.0); Mean Corpuscular Hemoglobin 32.6 pg (28.0-34.0); Mean Corpuscular Volume 99.7 fl (80-94); Mean Platelet Volume 9.5 fL (7.4-10.4); Monocytes # 0.8 10^3/uL (0.2-0.9); Monocytes % 6.3 %; Neutrophils # 10.13 10^3/uL (1.8-7.7); Neutrophils % 81.3 %; Nucleated Red Blood Cells % 0 %; Platelet Count 558 10^3/cmm (130-400); Red Blood Count 3.41 10^6/uL (4.1-5.3); Red Cell Distribution Width 13.9 % (12.1-15.1); White Blood Count 12.4 10^3/uL (4.0-10.0)
[2022-05-19 08:27] LABS: Troponin(5th) Baseline 50 ng/L (0-15)
[2022-05-19 08:35] LABS: Alanine Aminotransferase 15 U/L (0-41); Albumin Level 3.3 g/dL (3.5-5.2); Alkaline Phosphatase 76 U/L (40-130); Anion Gap 14.4 (5-19); Aspartate Amino Transferase 12 U/L (0-40); Blood Urea Nitrogen 12 mg/dL (8-23); Carbon Dioxide 31 mmol/L (22-29); Chloride 96 mmol/L (98-107); Globulin 3.4 g/dL (1.3-4.6); Glucose 102 mg/dL (65-115); NT Pro B Type Natriuretic Pept 821 pg/mL (0-450); Osmolality Calculated 288 mOsm/kg (285-295); Sodium 139 mmol/L (136-145); Total Bilirubin 0.3 mg/dL (0.15-1.2); Total Protein 6.7 g/dL (6.6-8.7)
[2022-05-19 08:39] LABS: Potassium 2.4 mmol/L (3.5-5.1)
[2022-05-19] MEDS: potassium chloride oral liq 20 mEq/15 mL UDC 40 MEQ PO ×2 (09:15→11:38)
--- NOTE | 2022-05-19 09:40 | ECG_ITS ---
[facility] Test Date: 2022-05-19 Pat Name: Michael Herrera Department: Room: Gender: Male Work Counselor: : 1945 Requested By: Dileep Khan Order Number: [id number] Vadim MD: Kody Galindo M.D. Measurements Intervals [place] Rate: 77 P: 0 [place]: 0 QRS: -29 QRSD: 101 T: 111 QT: 408 QTc: 464 Interpretive Statements SUPRAVENTRICULAR RHYTHM PROBABLE LATERAL MYOCARDIAL INFARCTION , OF INDETERMINATE AGE [35 ms Q WAVE IN I/aVL/V5/V6] Compared to ECG 05/19/2022 07:18:34 Supraventricular rhythm now present Sinus rhythm no longer present Left ventricular hypertrophy no longer present ST (T wave) deviation no longer present Myocardial infarct finding still present Electronically Signed On 05-19-2022 16:52:55 FOOD SERVICES COORDINATOR by Kody Galindo M.D. [id number]
--- NOTE | 2022-05-19 09:57 | PC.PHAR ---
PT STATES HE TAKES CARE OF HIS OWN MEDICATIONS-PT STATES ONLY TOOK ACETAMINOPHEN THIS AM-PT STATES HE FINISHED ACYCLOVIR 800MG FIVE TIMES A DAY ON 05/11/22 RX FILLED 05/06/22 5D/S-NOTES ARE MADE IN THE PHARMACY COMMENTS
[2022-05-19 10:36] LABS: Troponin 5 2HR 45.36 ng/L (0-15)
[2022-05-19 10:37] LABS: Troponin 5 2HR Delta -4.64 ABS# (0-10)
[2022-05-19 12:13] LABS: Add Urine Microscopic? YES; Bilirubin Urine Neg (Negative); Blood Urine 3+ (Negative); Glucose Urine UA Norm (Normal); Ketones Urine Negative (Negative); Leukocyte Esterase Urine 2+ (Negative); Nitrate Urine Negative (Negative); Protein Urine Trace (Negative); Urine Appearance Hazy (CLEAR); Urine Color Light yellow (Yellow); Urobilinogen Urine Norm (Negative); pH Urine 6 (5-7)
[2022-05-19 12:14] LABS: Amorphous Sediment Urine 1+ /hpf; Bacteria Urine 3+ /hpf; RBC Urine 0-4 /hpf (0-2); Squamous Epithelial Cell Urine 0-4 /hpf (0-5)
[2022-05-19 12:14] LABS: Potassium 3.3 mmol/L (3.5-5.1)
[2022-05-19 12:15] LABS: Add Urine Culture? Yes
--- NOTE | 2022-05-19 12:28 | PC.NURSE ---
DR. CHINCHILLA INSTRUCTED NOT TO GET BLOOD CULTURES
[2022-05-19] MEDS: cefTRIAXone 1,000 MG in sodium chloride 0.9% (plus) 50 ML 100 MG IV (12:34)
== END 2022-05-19 13:33 | disposition home or self-care (01) ==
PROVIDERS: Emergency Provider Family Medicine; PCP Nurse Practitioner Family
DX: R07.89 Other chest pain (principal); E87.6 Hypokalemia; N30.90 Cystitis, unspecified without hematuria; J44.9 Chronic obstructive pulmonary disease, unspecified; Z86.73 Personal history of transient ischemic attack (TIA), and cerebral infarction without residual deficits; I10 Essential (primary) hypertension; Z87.440 Personal history of urinary (tract) infections; F17.210 Nicotine dependence, cigarettes, uncomplicated
CPT/HCPCS: 36415; 71045; 80053; 81001; 83880; 84132; 84484; 85025; 87077; 87086; 87186; 93005; 96365; 99285; J0696

== ENCOUNTER 2022-05-24 03:07 | Inpatient (IN) | payer OTHER, SELFPAY ==
[2022-05-24] VITALS (49 sets, daily range): BP systolic 100–165; BP diastolic 58–97; PULSE 60–133; RESP 13–34; TEMP 36.9–37.2; O2SAT 80–98; BMI 25.8
--- NOTE | 2022-05-24 03:13 | PC.NURSE ---
Pt arrived to ER with luna catheter in place. This is a chronic indwelling managed by urology, per pt. Pt states it has been close to a month since it was changed, but home health nurse comes out often to manage. Pt is nonambulatory and has 3+ edema to feet. Pt reports that this is normal for him. Pt has scabbing to right side of head from recent shingles outbreak
--- NOTE | 2022-05-24 03:13 | XRR_ITS ---
PROCEDURE INFORMATION: Exam: XR Chest Exam date and time: 05/24/2022 3:17 AM Age: 76 years old Clinical indication: Chest pressure; Prior surgery; Surgery type: Gb. Cervical fusion; Patient HX: C/O chest pain. Tachycardic on monitor. History of copd. ; Additional info: Cp TECHNIQUE: Imaging protocol: Radiologic exam of the chest. Views: 1 view. COMPARISON: CR XR chest 1V portable [id number] 05/19/2022 7:36 AM FINDINGS: Lungs: Hyperinflation of the lungs with changes of COPD. No consolidation. Pleural spaces: Unremarkable. No pleural effusion. No pneumothorax. Heart/Mediastinum: No cardiomegaly. Bones/joints: No acute fracture. XR/XR chest 1V portable [id number] IMPRESSION: No acute findings.
--- NOTE | 2022-05-24 03:15 | ED_ITS ---
HPI - Chest Pain General: Chief Complaint: Chest Pain Stated Complaint: cp Time Seen by Provider: 05/24/22 03:07 Source: patient and EMS Mode of arrival: EMS Limitations: no limitations History of Present Illness: 76-year-old male states that tonight he was having chest pain as a pressure type pain in the center of his chest he has a history of A-fib with RVR as well when EMS arrived he was in A-fib heart rate is in the 140s he is giving 20 mg Cardizem his heart rate is still in the 120s to 130s he complains of some dyspnea as well is chronic by lower extremity edema he denies any worsening improving factors currently. He rates his pain a 1 out of 10 currently Associated symptoms: Reports palpitations; Deny abdominal pain, dyspnea, fever(s), nausea or vomiting Review of Systems Const: Denies: fever(s), chills, body aches or change in appetite Eyes: Denies: blurry vision or eye discomfort ENMT: Denies: throat pain or dental pain Card: Reports: chest pain and palpitations Resp: Denies: dyspnea GI: Denies: abdominal pain, nausea, vomiting or diarrhea : Denies: dysuria Musc: Reports: extremity swelling Skin/Breast: Denies: rash Neuro: Denies: headache(s) Psych: Denies: depression Tae/Lymph: Denies: easy bruising All/Imm: Denies: urticaria PFSH ED PFSH: Medical History Ascending aortic aneurysm Bradycardia Chronic back pain Chronic neck pain Compression fracture of L1 lumbar vertebra COPD (chronic obstructive pulmonary disease) CVA (cerebral vascular accident) Cystitis with hematuria GERD (gastroesophageal reflux disease) HTN (hypertension) Macrocytic anemia Multilevel degenerative disc disease Self-catheterizes urinary bladder Spinal stenosis, site unspecified Urinary retention Surgical History H/O laminectomy L5-S1 HEMILANIECTOMIES H/O shoulder surgery H/O spinal fusion C5-C6 History of cystoscopy in 01/2019 -chronic inflammatory changes, bladder diverticuli Hx laparoscopic cholecystectomy S/P ureteral stent placement Family History Father CAD (coronary artery disease) Social History Smoking and tobacco status: current every day smoker cigarettes Packs smoked per day: 1 Years cigarettes smoked: 60 Quit status (tobacco): not considering quitting Second hand smoke exposure: Yes Smoking risk assessment/counseling performed?: Yes Alcohol intake: never Caregiver/support person: Yes Lives independently: Yes Household members: none Marital status: service: Yes Current occupational status: disabled Current gender identity: Male Physical Exam Const: COMMON NORMALS: patient oriented x3 GENERAL APPEARANCE: ill appearing HENMT: COMMON NORMALS: normocephalic and atraumatic HEAD & SCALP: normocephalic and atraumatic Eye: COMMON NORMALS: Equal, round and reactive pupils present and EOMs intact bilaterally PUPIL: Yes Equal, round and reactive pupils present Neck/C-Spine: COMMON NORMALS: full ROM and supple Chest: COMMONS NORMALS: normal inspection of the chest and normal palpation of entire chest wall Resp: COMMON NORMALS: normal respiratory effort, No retractions, No use of accessory muscles and clear to auscultation bilaterally AUSCULTATION: clear to auscultation bilaterally Cardio: COMMON NORMALS: No murmurs present (Cardio) RATE: tachycardic RHYTHM: abnormal rhythm irregularly irregular GI: COMMON NORMALS: Normal to inspection, nondistended, normoactive bowel sounds present, Soft to palpation, non-tender and no masses PALPATION: Yes Soft to palpation Extremity: COMMON NORMALS: full ROM NARRATIVE EXTREMITY EXAM: 2+ edema to ble Neuro: COMMON NORMALS: patient oriented x3, moves all extremities and no focal motor deficits Psych: COMMON NORMALS: mental status grossly normal, Normal thought process present and cooperative THOUGHT PROCESS: Normal thought process present Skin: COMMON NORMALS: no rashes or lesions noted and no wounds GENERAL SKIN EXAM: no rashes or lesions noted Course Vital Signs: Vital signs: Vital Signs Temperature 98.9 F 05/24/22 03:14 Pulse Rate 116 H 05/24/22 04:49 Respiratory Rate 24 H 05/24/22 04:49 Blood Pressure 145/83 05/24/22 04:49 Pulse Oximetry 92 05/24/22 04:49 Oxygen Delivery Me thod 05/24/22 04:06 Oxygen Flow Rate 2 05/24/22 04:06 MDM - Chest Pain Medical Decision Making Patient presents here with A-fib with RVR he has been given 30 of Cardizem and he is on a drip as well still does have some tachycardia CTA showed a possible PE his troponins at his baseline spoke to hospitalist and will admit at this time to the cardiac stepdown. Lab Data 05/24/22 03:15 05/24/22 03:15 Radiology Impressions Chest X-Ray 05/24/22 03:13 IMPRESSION: No acute findings. Chest CTA 05/24/22 03:27 IMPRESSION: 1. Question nonocclusive punctate thrombus noted in the left lower lobe pulmonary artery (see image 198 series 13). However, there is motion artifact through this region. Otherwise no large central pulmonary embolus. 2. 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 COMMENTS: Consistent with the [employer]'s Incidental Findings Committee white paper (J Am Didier Radiol 2018): Any incidental renal lesion less than 1 cm or classified as too small to characterize, or any incidental cystic renal lesion characterized as simple-appearing, is likely benign. No follow-up imaging is recommended for these lesions per consensus recommendations based on imaging criteria. Laboratory Results WBC 14.9 10^3/uL (4.0-10.0) H 05/24/22 03:15 RBC 3.44 10^6/uL (4.1-5.3) L 05/24/22 03:15 Hgb 11.4 g/dL (11.7-16.6) L 05/24/22 03:15 Hct 35.3 % (42.0-52.0) L 05/24/22 03:15 MCV 102.6 fl (80-94) H 05/24/22 03:15 MCH 33.1 pg (28.0-34.0) 05/24/22 03:15 MCHC 32.3 g/dL (30.0-36.0) 05/24/22 03:15 RDW 14.9 % (12.1-15.1) 05/24/22 03:15 Plt Count 421 10^3/cmm (130-400) H 05/24/22 03:15 MPV 9.7 fL (7.4-10.4) 05/24/22 03:15 Neut % (Auto) 83.0 % 05/24/22 03:15 Lymph % (Auto) 6.4 % 05/24/22 03:15 [place] % (Auto) 5.5 % 05/24/22 03:15 Eos % (Auto) 4.4 % 05/24/22 03:15 Baso % (Auto) 0.3 % 05/24/22 03:15 Neut # (Auto) 12.33 10^3/uL (1.8-7.7) H 05/24/22 03:15 Lymph # (Auto) 1.0 10^3/uL (0.8-4.8) 05/24/22 03:15 [place] # (Auto) 0.8 10^3/uL (0.2-0.9) 05/24/22 03:15 Eos # (Auto) 0.7 10^3/uL (0.0-0.8) 05/24/22 03:15 Baso # (Auto) 0.0 10^3/uL (0.0-0.1) 05/24/22 03:15 Nucleated RBC % (auto) 0 % 05/24/22 03:15 Nucleated RBCs # 0.0 /100WBC 05/24/22 03:15 PT 13.40 SECONDS (12.1-14.9) 05/24/22 03:15 INR 0.99 (0.8-1.2) 05/24/22 03:15 Sodium 142 mmol/L (136-145) 05/24/22 03:15 Potassium 3.1 mmol/L (3.5-5.1) L 05/24/22 03:15 Chloride 102 mmol/L (98-107) 05/24/22 03:15 Carbon Dioxide 29 mmol/L (22-29) 05/24/22 03:15 Anion Gap 14.1 (5-19) 05/24/22 03:15 BUN 13 mg/dL (8-23) 05/24/22 03:15 Creatinine 1.0 mg/dL (0.7-1.2) 05/24/22 03:15 GFR Calculation Not Reportable 05/24/22 03:15 Glucose 103 mg/dL (65-115) 05/24/22 03:15 Calculated Osmolality 294 mOsm/kg (285-295) 05/24/22 03:15 Calcium 8.9 mg/dL (8.5-10.5) 05/24/22 03:15 Total Bilirubin 0.3 mg/dL (0.15-1.2) 05/24/22 03:15 AST 9 U/L (0-40) 05/24/22 03:15 ALT 9 U/L (0-41) 05/24/22 03:15 Alkaline Phosphatase 85 U/L (40-130) 05/24/22 03:15 Troponin T Baseline 43 ng/L (0-15) H 05/24/22 03:15 NT-Pro-B Natriuret Pep 743 pg/mL (0-450) H 05/24/22 03:15 Total Protein 6.4 g/dL (6.6-8.7) L 05/24/22 03:15 Albumin 3.0 g/dL (3.5-5.2) L 05/24/22 03:15 Globulin 3.4 g/dL (1.3-4.6) 05/24/22 03:15 Influenza Type A Ag negative (Negative) 05/24/22 04:03 Influenza Type B Ag negative (Negative) 05/24/22 04:03 SARS-CoV-2 Ag (Rapid) negative (Negative) 05/24/22 04:03 EKG Data EKG 1: I personally reviewed and interpreted this EKG as follows: EKG interpretation date: 05/24/22 EKG interpretation time: 03:13 Interpretation: afib with rvr hr [address] or t wave abnormalities qrs 94 qtc 368 Discharge Plan Discharge Patient Disposition: Admitted As Inpatient Clinical Impression: Atrial fibrillation with rapid ventricular response, Pulmonary embolism Condition: Stable Coding Level of Care Code 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
[2022-05-24] MEDS: dilTIAZem 5 mg/mL SDV 5 mL 10 MG IVP (03:20)
[2022-05-24 03:23] LABS: Basophils % 0.3 %; Eosinophils # 0.7 10^3/uL (0.0-0.8); Eosinophils % 4.4 %; Hematocrit 35.3 % (42.0-52.0); Hemoglobin 11.4 g/dL (11.7-16.6); Lymphocytes % 6.4 %; Mean Corpuscular HGB Conc 32.3 g/dL (30.0-36.0); Mean Corpuscular Hemoglobin 33.1 pg (28.0-34.0); Mean Corpuscular Volume 102.6 fl (80-94); Mean Platelet Volume 9.7 fL (7.4-10.4); Monocytes # 0.8 10^3/uL (0.2-0.9); Monocytes % 5.5 %; Neutrophils # 12.33 10^3/uL (1.8-7.7); Nucleated Red Blood Cells % 0 %; Platelet Count 421 10^3/cmm (130-400); Red Blood Count 3.44 10^6/uL (4.1-5.3); Red Cell Distribution Width 14.9 % (12.1-15.1); White Blood Count 14.9 10^3/uL (4.0-10.0)
--- NOTE | 2022-05-24 03:27 | CTR_ITS ---
PROCEDURE INFORMATION: Exam: CTA Chest With Contrast Exam date and time: 05/24/2022 3:50 AM Age: 76 years old Clinical indication: Tachypnea and other: Hypotension. Diaphoresis. Patient HX: While in er, sudden onset of hypotension with worsening tachycardia and diaphoresis. ; Additional info: SOB TECHNIQUE: Imaging protocol: Computed tomographic angiography of the chest with contrast. 3D rendering (Not supervised by radiologist): MIP and/or 3D reconstructed images were created by the technologist. Radiation optimization: All CT scans at this facility use at least one of these dose optimization techniques: automated exposure control; mA and/or kV adjustment per patient size (includes targeted exams where dose is matched to clinical indication); or iterative reconstruction. Contrast material: OMNI 350; Contrast volume: 59 ml; Contrast route: INTRAVENOUS (IV); REPORTING DATA: Count of CT and Cardiac NM exams in prior 12 months: This patient has received [address] and 0 known cardiac nuclear medicine studies in the 12 months prior to the current study. COMPARISON: CR (CHEST, ) 05/24/2022 3:17 AM RADIATION DOSE METRICS: Total DLP (mGy-cm): 325.01 FINDINGS: Pulmonary arteries: Question nonocclusive punctate thrombus noted in the left lower lobe pulmonary artery (see image 198 series 13). However, there is motion artifact through this region. Otherwise no large central pulmonary embolus. Aorta: Mild aneurysmal dilation of the ascending aorta measuring 4 cm. Lungs: Unremarkable. No consolidation. No masses. Pleural spaces: Unremarkable. No pneumothorax. No pleural effusion. Heart: Unremarkable. No cardiomegaly. No pericardial effusion. Lymph nodes: Unremarkable. No enlarged lymph nodes. Kidneys and ureters: 5 x 5 cm left renal cyst. Bones/joints: Unremarkable. No acute fracture. Soft tissues: Unremarkable. CT/CT angio chest PE protcl [id number] IMPRESSION: 1. Question nonocclusive punctate thrombus noted in the left lower lobe pulmonary artery (see image 198 series 13). However, there is motion artifact through this region. Otherwise no large central pulmonary embolus. 2. 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 COMMENTS: Consistent with the [employer]'s Incidental Findings Committee white paper (J Am Didier Radiol 2018): Any incidental renal lesion less than 1 cm or classified as too small to characterize, or any incidental cystic renal lesion characterized as simple-appearing, is likely benign. No follow-up imaging is recommended for these lesions per consensus recommendations based on imaging criteria.
[2022-05-24] MEDS: aspirin 81 mg Chew Tablet 324 MG PO (03:29)
[2022-05-24 03:33] LABS: INR 0.99 (0.8-1.2)
[2022-05-24] MEDS: dilTIAZem 100 MG in sodium chloride 0.9% (add-van) 100 ML IV (03:44)
[2022-05-24 03:46] LABS: Troponin(5th) Baseline 43 ng/L (0-15)
[2022-05-24 03:56] LABS: Alanine Aminotransferase 9 U/L (0-41); Alkaline Phosphatase 85 U/L (40-130); Anion Gap 14.1 (5-19); Aspartate Amino Transferase 9 U/L (0-40); Blood Urea Nitrogen 13 mg/dL (8-23); Calcium 8.9 mg/dL (8.5-10.5); Carbon Dioxide 29 mmol/L (22-29); Chloride 102 mmol/L (98-107); Globulin 3.4 g/dL (1.3-4.6); Glucose 103 mg/dL (65-115); NT Pro B Type Natriuretic Pept 743 pg/mL (0-450); Osmolality Calculated 294 mOsm/kg (285-295); Potassium 3.1 mmol/L (3.5-5.1); Sodium 142 mmol/L (136-145); Total Bilirubin 0.3 mg/dL (0.15-1.2); Total Protein 6.4 g/dL (6.6-8.7)
[2022-05-24] MEDS: iohexol 350 mg/mL 500 mL Btl (per mL) IV (04:01)
[2022-05-24 04:21] LABS: Influenza A by IFA negative (Negative); Influenza B by IFA negative (Negative); SARS Covid-2 Antigen negative (Negative)
--- NOTE | 2022-05-24 05:01 | USCV_ITS ---
[facility], [facility] Age: 76 Gender: M : 1945 Exam Date: 05/24/2022 08:52 Ordering Phys: Reece Alvarado MD Technologist: GERRY Exam Location: [facility] – [place] Indication: PE BP: 125 / 72 HR: 68 Rhythm: Sinus Technical Quality: Suboptimal MEASUREMENTS (Male / Female) Normal Values 2D ECHO LVOT Diameter 2.0 cm LV Ejection Fraction MOD 2C 78.5 % LV Ejection Fraction 2C AL 77.8 % LA Diameter 2.1 cm LA Width 2.1 cm LA Height 4.1 cm RA Width 2.2 cm RA Height 3.6 cm Aorta at Sinotubular Diameter 2.1 cm M-MODE Aortic Annulus Diameter 3.2 cm LA Ao Ratio MM 0.6 DOPPLER AV Peak Velocity 132.0 cm/s LVOT Peak Velocity 114.0 cm/s AV Area Cont Eq vti 3.1 cm squared AV Area Cont Eq pk 2.6 cm squared MV Peak Velocity 64.0 cm/s MV Area PHT 2.8 cm squared Mitral E to A Ratio 1.1 MV E' Velocity 41.5 cm/s Mitral E to MV E' Ratio 6.9 Mitral E to LV E' Lateral Ratio 6.0 Mitral E to LV E' Septal Ratio 8.3 TR Peak Velocity 266.1 cm/s TR Peak Gradient 28.3 mmHg TR Mean Velocity 216.4 cm/s TR Mean Gradient 20.3 mmHg TR Velocity Time Integral 88.4 cm TV Peak E Velocity 43.0 cm/s Right Atrial Pressure 8.0 mmHg Pulmonary Artery Systolic Pressu 36.3 mmHg PV Peak Velocity 101.0 cm/s RV Acceleration Time 0.1 s RV Ejection Time 0.3 s RV AcT/ET 0.4 FINDINGS Left Ventricle Left ventricle is normal in size. LV systolic function is normal with EF of 60 to 65%. No regional wall motion abnormalities are seen. Right Ventricle Normal in size and function Right Atrium Normal in size Left Atrium Normal in size Mitral Valve Structurally nromal mitral valve. Trace mitral regurgitation. Aortic Valve Grossly normal. No significant stenosis seen Tricuspid Valve Trace tricuspid regurgitation. Insufficient TR jet to calculate RVSP Pulmonic Valve Not well visualized Pericardium Normal Aorta Normal in size IVC Not well visualized CONCLUSIONS Technically limited quality echocardiogram because of poor ultrasonic windows LV systolic function is normal with EF of 60-65% Trace mitral regurgitation Trace tricuspid regurgitation Compared to prior echocardiogram from 10/01/2019, no significant changes are seen Bc Juarez MD (Electronically Signed) Final Date: 24 May 2022 11:20 S
--- NOTE | 2022-05-24 05:13 | ECG_ITS ---
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 Measurements Intervals [place] Rate: 78 P: 51 AK: 185 QRS: 28 QRSD: 90 T: 81 QT: 392 QTc: 447 Interpretive Statements SINUS RHYTHM Compared to ECG 05/19/2022 09:40:29 Supraventricular rhythm no longer present Myocardial infarct finding no longer present Electronically Signed On 05-24-2022 16:20:20 [employer] REVERSER by Kody Galindo M.D. [email or web address]
--- NOTE | 2022-05-24 05:15 | P.HP_ITS ---
Providers/Chief Complaint Admitting Physician: Reece Alvarado MD, hospitalist Primary Care Provider: ZEINAB Almaguer Chief Complaint: cp History of Present Illness Doc Michelle Herrera Jr is a 76 year old male presenting to the emergency department with chest discomfort. He was recently here on the with similar complaint, although no atrial fibrillation was noted. Patient reports that went away, and early this morning this recurred, pressure type discomfort. EMS arriv ed and found he was in A-fib with RVR. 20 mg of Cardizem was given and he was put on a Cardizem drip in the emergency department. He reports no significant discomfort currently. He has a past history of atrial fibrillation, rather short-lived, at a hospitalization in 2019. Anticoagulation was considered then, but not initiated with concern for fall risk. He has been ill recently, with shingles. He cannot tell me whether he is still on any oral medication for this. He believes he is still on some eyedrops and did see the court recorder. He believes it affected his right eye, and certainly his forehead on the right. No fevers. Occasional cough. Still smokes. Review of Systems General: Reports: 10 or more systems reviewed and unremarkable except in HPI and below Const: Denies: fever(s) or chills Eyes: Reports: blurry vision and eye redness ENMT: Denies: throat pain Card: Reports: chest pain, palpitations and swelling of feet/ankles Resp: Reports: dyspnea GI: Denies: abdominal pain, nausea, hematochezia or melena Neuro: Reports: frequent falls Medications/Allergies Home Medications Medication Instructions Recorded Confirmed Last Taken Type fluoxetine 20 mg capsule (Prozac) 60 mg PO DAILY 03/26/19 05/19/22 11/24/20 History omeprazole 20 mg capsule,delayed 20 mg PO QAM 03/26/19 05/19/22 11/24/20 History release methenamine hippurate 1 gram tablet 1 gm PO BID #60 tabs 08/28/19 05/19/22 11/24/20 Rx bisacodyl 5 mg tablet 5 mg PO DAILY PRN constipation #30 08/29/19 05/19/22 11/24/20 Rx tabs ascorbic acid (vitamin C) 500 mg 1,000 mg PO BID 09/30/19 05/19/22 11/28/19 History tablet (Vitamin C) food supplemt, lactose-reduced 1 ea PO BID 09/30/19 05/19/22 Unknown History 0.05 gram-1.5 kcal/mL oral liquid (Ensure Plus) guaifenesin 400 mg tablet 400 mg PO TID PRN Congestion 09/30/19 05/19/22 11/24/20 History sennosides 8.6 mg-docusate sodium 2 tab PO DAILY PRN Constipation 09/30/19 05/19/22 11/24/20 History 50 mg tablet (Senna-S) mometasone 100 mcg/actuation HFA 2 puff inhalation BID 30 days #13 04/13/20 05/19/22 11/24/20 Rx aerosol inhaler (Asmanex HFA) grams tiotropium 2.5 mcg-olodaterol 2.5 2 puff inhalation DAILY 04/13/20 05/19/22 11/24/20 History mcg/actuation mist for inhalation (Stiolto Respimat) albuterol sulfate 90 mcg/actuation 2 puff inhalation Q4H PRN 11/24/20 05/19/22 11/24/20 History aerosol inhaler (ProAir HFA) Shortness Of Breath divalproex 500 mg tablet,extended 500 mg PO BEDTIME 11/24/20 05/19/22 11/24/20 History release 24 hr (Depakote ER) acetaminophen 500 mg tablet 500 - 1,000 mg PO QID PRN Pain 05/19/22 05/19/22 05/19/22 04:00 History cholecalciferol (vitamin D3) 25 25 mcg PO DAILY 05/19/22 05/19/22 Unknown History mcg (1,000 unit) tablet (Vitamin D3) ferrous gluconate 324 mg (38 mg 324 mg PO DAILY 05/19/22 05/19/22 Unknown History iron) tablet fluticasone propionate 50 2 spray intranasal DAILY 05/19/22 05/19/22 Unknown History mcg/actuation nasal spray,suspension hydrocortisone acetate 1 % topical 1 applic topical TID 05/19/22 05/19/22 Unknow n History cream ipratropium 0.5 mg-albuterol 3 mg 3 ml inhalation QID PRN shortness 05/19/22 05/19/22 Unknown History (2.5 mg base)/3 mL nebulization of breath soln menthol 0.44 %-zinc oxide 20.6 % 1 applic topical DAILY skin 05/19/22 05/19/22 Unknown History topical ointment (Calmoseptine) protection miconazole nitrate 2 % topical 1 spray topical TID PRN infection 05/19/22 05/19/22 Unknown History spray powder nitrofurantoin 100 mg PO BID 7 days #14 caps 05/19/22 Unknown Rx monohydrate/macrocrystals 100 mg capsule (Macrobid) potassium chloride 20 mEq 20 meq PO BID #20 tabs 05/19/22 Unknown Rx tablet,extended release(part/cryst) torsemide 10 mg tablet 10 mg PO DAILY 05/19/22 05/19/22 Unknown History Allergies Allergy/AdvReac Type Severity Reaction Status Date / Time nicotine Allergy Mild SKIN Verified 05/19/22 09:46 REACTION hydrocodone Allergy Unknown Verified 05/19/22 09:46 propoxyphene [From Darvon] Allergy Unknown Verified 05/19/22 09:46 PFSH Acute PFSH: Medical History (Updated 05/24/22 @ 05:28 by Reece Alvarado MD) Ascending aortic aneurysm Atrial fibrillation Bradycardia Chronic back pain Chronic neck pain Compression fracture of L1 lumbar vertebra COPD (chronic obstructive pulmonary disease) CVA (cerebral vascular accident) Cystitis with hematuria Depression GERD (gastroesophageal reflux disease) HTN (hypertension) Macrocytic anemia Multilevel degenerative disc disease Self-catheterizes urinary bladder Spinal stenosis, site unspecified Urinary retention Surgical History H/O laminectomy L5-S1 HEMILANIECTOMIES H/O shoulder surgery H/O spinal fusion C5-C6 History of cystoscopy in 01/2019 -chronic inflammatory changes, bladder diverticuli Hx laparoscopic cholecystectomy S/P ureteral stent placement Family History Father CAD (coronary artery disease) Social History Smoking and tobacco status: current every day smoker cigarettes Packs smoked per day: 1 Years cigarettes smoked: 60 Quit status (tobacco): not considering quitting Second hand smoke exposure: Yes Smoking risk assessment/counseling performed?: Yes Alcohol intake: never Caregiver/support person: Yes Lives independently: Yes Household members: none Marital status: service: Yes Current occupational status: disabled Current gender identity: Male Vitals/I&O/Wt Last Vital Signs Temp 98.9 F 05/24/22 03:14 Pulse 133 H 05/24/22 05:11 Resp 22 H 05/24/22 05:11 BP 129/84 05/24/22 05:11 Pulse Ox 91 05/24/22 05:11 O2 Del Method 05/24/22 05:11 O2 Flow Rate 2 05/24/22 05:11 05/23/22 05/23/22 05/24/22 14:59 22:59 06:59 Intake Total 9.166 / 9.166 Balance 9.166 / 9.166 Weight last 48 hrs Weight 74.843 kg Physical Exam Narrative: General exam is a white male, conversant, reporting no chest discomfort. Heart rate appears to be about 120. HEENT: Atraumatic and normocephalic. Pupils equally round. Oropharynx clear. Neck is supple no lymphadenopathy thyromegaly Cardiovascular irregular, irregular with accelerated rate. I do not auscultate a murmur Lungs diminished breath sounds bilaterally but no wheezes or crackles Abdomen is soft with positive bowel sounds. No obvious organomegaly exams deferred Extremities no cyanosis or clubbing. 2+ edema is noted bilaterally. Skin demonstrates scabbing over forehead where shingles was. I do not see any vesicles currently. Neuro: No obvious focal deficits. Data 05/24/22 03:15 05/24/22 03:15 Other Labs: EKG which I reviewed demonstrates atrial fibrillation, normal axis, rate of around 130, nonspecific ST-T wave changes. Chest x-ray which I reviewed demonstrates no obvious infiltrate. Some changes consistent with COPD. INR 0.99 I have ordered a magnesium and TSH Calcium is normal LFTs normal Baseline troponin 43, repeat pending BNP is 743 Albumin is 3.0 I have ordered a TSH Rapid COVID-negative. Influenza negative CTA of chest demonstrates possible thrombus left lower lobe pulmonary artery, quite a bit of motion artifact and mild aneurysm dilation of the ascending aorta at 4 cm A&P Assessment and plan (1) Atrial fibrillation with rapid ventricular response: Patient presents with chest discomfort and atrial fibrillation with rapid ventricular rate He has past history of atrial fibrillation, but was not elected to be a candidate for anticoagulation secondary to fall risk Proceed with anticoagulation currently. He also has findings of possible pulmonary embolism on CTA Correct hypokalemia Check magnesium and TSH Check echocardiogram Continue Cardizem drip started in the ER Initiate metoprolol 25 mg twice daily Serial troponins He appears somewhat fluid overloaded, Lasix 20 mg IV x1 (2) Chest pain: See above Serial troponins Serial EKGs Echocardiogram (3) Herpes zoster: Recently has had herpes zoster. Await medicine reconciliation. He is likely still on an eyedrop. I do not see any vesicles, and with the lesions being scabbed he is not infectious. (4) Hypokalemia: Supplement potassium, 40 mEq by mouth now Check magnesium Repeat potassium and BMP tomorrow (5) Leukocytosis: No evidence of pneumonia on x-ray Secondary to symptomatology we will go ahead and check a COVID PCR. Rapid COVID and flu was negative. Check urinalysis. He has history of recurrent urinary infections (6) Elevated troponin: May be secondary to elevated heart rate Serial troponins Check echocardiogram (7) Hypoalbuminemia: Patient with hypoalbuminemia This may indicate a poor nutrition state Check urinalysis to make sure no significant proteinuria exists (8) COPD (chronic obstructive pulmonary disease): DuoNeb every 6 hours Budesonide No evidence of exacerbation currently Wean oxygen as tolerated Qualifiers: COPD type: unspecified COPD Qualified Code(s): J44.9 - Chronic obstructive pulmonary disease, unspecified (9) Tobacco dependency: Encouraged abstention from tobacco (10) Pulmonary embolism: Concern of pulmonary embolism on CTA Full dose Lovenox will be initiated Telemetry Venous duplex lower extremities (11) Acute diastolic heart failure: Patient appears to have some evidence of acute diastolic heart failure 20 mg of IV Lasix now. Will likely need a dose every 12 hours, but will need to make sure after heart rate is controlled but blood pressure is adequate for further diuresis. He also has hypoalbuminemia which could be causing some of his peripheral edema. Echocardiogram has been ordered Plan Urinary retention, self cath status. Place Lowery for hospitalization Other medical problems as outlined in past medical history Full code Lovenox for DVT prophylaxis Attestations Medical Necessity Statement*: Will need greater than 2 midnight stay secondary to atrial fibrillation with rapid ventricular rate, acute diastolic heart failure, electrolyte abnormality, new diagnosis of pulmonary embolism Diagnoses Atrial fibrillation with rapid ventricular response I48.91 Chest pain R07.9 Herpes zoster B02.9 Hypokalemia E87.6 Leukocytosis D72.829 Elevated troponin R77.8 Hypoalbuminemia E88.09 COPD (chronic obstructive pulmonary disease) J44.9 COPD type: unspecified COPD Tobacco dependency F17.200 Pulmonary embolism I26.99 Acute diastolic heart failure I50.31 Time Spent (min) 44
[2022-05-24] MEDS: potassium chloride ER 20 mEq Tablet 40 MEQ PO (05:16)
[2022-05-24] MEDS: enoxaparin 80 mg/0.8 mL Syringe 70 MG SUBCUT ×2 (05:16→18:03)
[2022-05-24 05:30] LABS: Thyroid Stimulating Hormone 2.22 uIU/mL (0.27-4.20)
--- NOTE | 2022-05-24 05:32 | USCV_ITS ---
[facility], [facility] Age: 76 Gender: M : 1945 Exam Date: 05/24/2022 08:39 Ordering Phys: Reece Alvarado MD Technologist: GERRY Exam Location: [facility] [place] Indication: PE HISTORY: Patient has history of. Pulmonary embolism. PROCEDURES: Venous duplex imaging was performed in bilateral lower extremities. The following venous structures were evaluated: common femoral vein, profunda vein, proximal portion of the greater saphenous vein, superficial femoral vein, and the popliteal vein. In addition, the posterior tibial and peroneal trunk were evaluated. Serial compression, augmentation maneuvers, and spectral Doppler flow evaluation were performed. FINDINGS: Normal 2-D Doppler and augmentation and compressibility throughout the lower extremity venous structures. Additional imaging through the proximal calf veins also reveals no thrombus. Limited evaluation of the greater saphenous vein is patent with no thrombus.. CONCLUSIONS No DVT bilateral lower extremities. Dr. Lela Dodd DO (Electronically Signed) Final Date: 24 May 2022 09:34 S
--- NOTE | 2022-05-24 05:38 | PC.NURSE ---
Dr. Alvarado aware of pt vitals. No new orders. Pt is resting comfortably with no c/o at this time.
[2022-05-24 05:40] LABS: Urine Appearance Clear (CLEAR); Urine Color Yellow (Yellow); pH Urine 9 (5-7)
[2022-05-24 06:08] LABS: Bilirubin Urine Neg (Negative); Blood Urine 2+ (Negative); Glucose Urine UA Norm (Normal); Ketones Urine Negative (Negative); Leukocyte Esterase Urine 1+ (Negative); Nitrate Urine Negative (Negative); Protein Urine Neg (Negative); Specific Gravity, Urine 1.015 (1.005-1.030); Urobilinogen Urine Norm (Negative)
[2022-05-24 06:11] LABS: Triple Phosphate Crystal Urine 0-4 /hpf
[2022-05-24 06:12] LABS: Squamous Epithelial Cell Urine 0-4 /hpf (0-5)
[2022-05-24 06:13] LABS: Bacteria Urine 2+ /hpf
[2022-05-24 06:14] LABS: Add Urine Culture? Yes
[2022-05-24] MEDS: acetaminophen 325 mg Tablet 650 MG PO ×2 (07:19→18:01)
[2022-05-24] MEDS: FUROsemide 10 mg/mL SDV 2mL 20 MG IVP (07:20)
[2022-05-24] MEDS: pantoprazole DR 40 mg Tablet PO (07:21)
--- NOTE | 2022-05-24 07:40 | ECG_ITS ---
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 Measurements Intervals [place] Rate: 74 P: 51 [place]: 188 QRS: 18 QRSD: 92 T: 82 QT: 402 QTc: 448 Interpretive Statements SINUS RHYTHM PROBABLE INFERIOR MYOCARDIAL INFARCTION , PROBABLY OLD [35 ms Q WAVE IN II/aVF] Compared to ECG 05/24/2022 06:00:47 Myocardial infarct finding now present Electronically Signed On 05-24-2022 14:23:20 [employer] by Kody Galindo M.D. [email or web address]
[2022-05-24] MEDS: ipratropium-albuterol 3 mL Neb INHALATION ×2 (09:49→14:51)
[2022-05-24] MEDS: budesonide 0.5 mg/2 mL Neb INHALATION (09:49)
[2022-05-24] MEDS: fluoxetine 20 mg Capsule 60 MG PO (10:37)
[2022-05-24] MEDS: metoprolol tartrate 25 mg Tablet PO ×2 (10:37→20:22)
[2022-05-24] MEDS: dilTIAZem 100 MG in sodium chloride 0.9% (add-van) 100 ML 10 MG IV (10:38)
[2022-05-24 10:40] LABS: Troponin 5 6HR 56.72 ng/L (0-15)
[2022-05-24 10:46] LABS: Troponin 5 6HR Delta 13.72 ng/L (0-12)
--- NOTE | 2022-05-24 11:52 | PC.NURSE ---
Cardizem gtt stopped. Pts heart rate sustaining in the 70s. notified.
[2022-05-24] MEDS: divalproex ER 500 mg Tablet (24H) PO (20:22)
--- NOTE | 2022-05-24 23:07 | PC.NURSE ---
Around 2200 patient agitated in room. Stating he is tired of being here, wants to leave . Discussed with patient the importance of staying and receiving the treatment regimen ordered by his providers. He is in room angry, observed by 2 RNs. Paged Hospitalist, Dr. Cutler. Informed Dr. Cutler of incident and patient wanting to leave. Dr. Cutler instructed RN to educate why patient should stay. Followed Dr. Cutlers orders and patient still wanting to leave. Okay from Dr. Cutler to let patient sign AMA papers and leave. Around 2300 Informed Jovana Lauren of incident. Ok to continue with giving patient AMA papers. Jovana Lauren, mentioned when patients ride gets here, pull all IVs, and patient's ride will have to wheel patient out of hospital since patient is wheelchair bound. No further orders. Will obtain signature for AMA from patient and have witnessed with 2 RNs
[2022-05-25 00:03] LABS: Adenovirus Not Detected (NOT DETECT); Chlamydia Pneumoniae Not Detected (NOT DETECT); Coronavirus 229E,HKU1,NL63,OC4 Not Detected (NOT DETECT); Human Metapneumovirus Not Detected (NOT DETECT); Human Rhinovirus/Enterovirus Not Detected (NOT DETECT); Influenza A Not Detected (NOT DETECT); Influenza A H1 Not Detected (NOT DETECT); Influenza A H1-2009 Not Detected (NOT DETECT); Influenza A H3 Not Detected (NOT DETECT); Influenza B Not Detected (NOT DETECT); Mycoplasma Pneumoniae Not Detected (NOT DETECT); Parainfluenza Virus Type 1 Not Detected (NOT DETECT); Parainfluenza Virus Type 2 Not Detected (NOT DETECT); Parainfluenza Virus Type 3 Not Detected (NOT DETECT); Parainfluenza Virus Type 4 Not Detected (NOT DETECT); Respiratory Syncytial Virus A Not Detected (NOT DETECT); Respiratory Syncytial Virus B Not Detected (NOT DETECT); SARS-COV-2 Not Detected (NOT DETECT)
--- NOTE | 2022-05-25 00:18 | PC.NURSE ---
Patient Visitors at bedside. Reassessed orientation of patient. AAOx4. AMA signed and witness by 2 RNS at 2252. Patient placed in wheel chair. IVs removed. Lowery ok to go per House sup d/t assisted cath. Patient left with belongings- shirt, pants, phone at 0000
--- NOTE | 2022-05-25 08:37 | PM.DCS ---
Discharge Providers Date of Admission: 05/24/22 07:29 Date of Discharge: May 25, 2022 Attending Provider at Admission: Saida Alvarado MD Attending Provider at Discharge: Romy Clifton MD Primary Care Provider: ZEINAB Almaguer Diagnoses at Discharge Discharge Diagnosis (1) Atrial fibrillation with rapid ventricular response: Status: Acute (2) Chest pain: Status: Acute (3) Herpes zoster: Status: Acute (4) Hypokalemia: Status: Acute (5) Leukocytosis: Status: Acute (6) Elevated troponin: Status: Acute (7) Hypoalbuminemia: Status: Acute (8) COPD (chronic obstructive pulmonary disease): Status: Acute Qualifiers: COPD type: unspecified COPD Qualified Code(s): J44.9 - Chronic obstructive pulmonary disease, unspecified (9) Tobacco dependency: Status: Acute (10) Pulmonary embolism: Status: Acute (11) Acute diastolic heart failure: Status: Acute Reason for Visit Reason for Visit: cp Brief History: Signed out AGAINST MEDICAL ADVICE Hospital Course Hospital Course Admitted overnight. Atrial fibrillation being managed. Echocardiogram pending. Patient was being anticoagulated due to concern of PE on CTA. I saw patient in morning time and let him know that a lot of his studies were pending and we will have to see how he does. We will plan for discharge in next day or 2 pending his studies and clinical course. He demonstrated understanding at the time. However later on in the day signed out AGAINST MEDICAL ADVICE on 05/24/2022. Night hospitalist was notified. I was not present in the hospital when this happened. Physical Exam Narrative: Signed out AGAINST MEDICAL ADVICE. Urinary Catheter Management: Lowery: Cath Placed During This Visit: yes Urinary Catheter Date of Insertion: 05/24/22 Urinary Catheter Time of Insertion: 13:00 Discharge Data Studies Completed and Pending Completed Studies During Hospitalization Category Date Time Status CTA chest [CT angio chest PE protcl [id number]] Stat Cat Scan 05/24/22 03:27 Completed XR chest 1V portable [id number] Stat Exams 05/24/22 03:13 [place] [id number] Routine Ultrasound 05/24/22 05:32 Completed CV. echo complete* [id number] Routine Ultrasound 05/24/22 05:01 Completed Pending at discharge Category Date Time Status Urine Culture Stat Lab 05/24/22 05:24 Received Radiology Impressions Chest X-Ray 05/24/22 03:13 IMPRESSION: No acute findings. Chest CTA 05/24/22 03:27 IMPRESSION: 1. Question nonocclusive punctate thrombus noted in the left lower lobe pulmonary artery (see image 198 series 13). However, there is motion artifact through this region. Otherwise no large central pulmonary embolus. 2. 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 COMMENTS: Consistent with the [employer]'s Incidental Findings Committee white paper (J Am Didier Radiol 2018): Any incidental renal lesion less than 1 cm or classified as too small to characterize, or any incidental cystic renal lesion characterized as simple-appearing, is likely benign. No follow-up imaging is recommended for these lesions per consensus recommendations based on imaging criteria. Laboratory Results WBC 14.9 10^3/uL (4.0-10.0) H 05/24/22 03:15 RBC 3.44 10^6/uL (4.1-5.3) L 05/24/22 03:15 Hgb 11.4 g/dL (11.7-16.6) L 05/24/22 03:15 Hct 35.3 % (42.0-52.0) L 05/24/22 03:15 MCV 102.6 fl (80-94) H 05/24/22 03:15 MCH 33.1 pg (28.0-34.0) 05/24/22 03:15 MCHC 32.3 g/dL (30.0-36.0) 05/24/22 03:15 RDW 14.9 % (12.1-15.1) 05/24/22 03:15 Plt Count 421 10^3/cmm (130-400) H 05/24/22 03:15 MPV 9.7 fL (7.4-10.4) 05/24/22 03:15 Neut % (Auto) 83.0 % 05/24/22 03:15 Lymph % (Auto) 6.4 % 05/24/22 03:15 [place] % (Auto) 5.5 % 05/24/22 03:15 Eos % (Auto) 4.4 % 05/24/22 03:15 Baso % (Auto) 0.3 % 05/24/22 03:15 Neut # (Auto) 12.33 10^3/uL (1.8-7.7) H 05/24/22 03:15 Lymph # (Auto) 1.0 10^3/uL (0.8-4.8) 05/24/22 03:15 [place] # (Auto) 0.8 10^3/uL (0.2-0.9) 05/24/22 03:15 Eos # (Auto) 0.7 10^3/uL (0.0-0.8) 05/24/22 03:15 Baso # (Auto) 0.0 10^3/uL (0.0-0.1) 05/24/22 03:15 Nucleated RBC % (auto) 0 % 05/24/22 03:15 Nucleated RBCs # 0.0 /100WBC 05/24/22 03:15 PT 13.40 SECONDS (12.1-14.9) 05/24/22 03:15 INR 0.99 (0.8-1.2) 05/24/22 03:15 Sodium 142 mmol/L (136-145) 05/24/22 03:15 Potassium 3.1 mmol/L (3.5-5.1) L 05/24/22 03:15 Chloride 102 mmol/L (98-107) 05/24/22 03:15 Carbon Dioxide 29 mmol/L (22-29) 05/24/22 03:15 Anion Gap 14.1 (5-19) 05/24/22 03:15 BUN 13 mg/dL (8-23) 05/24/22 03:15 Creatinine 1.0 mg/dL (0.7-1.2) 05/24/22 03:15 GFR Calculation Not Reportable 05/24/22 03:15 Glucose 103 mg/dL (65-115) 05/24/22 03:15 Calculated Osmolality 294 mOsm/kg (285-295) 05/24/22 03:15 Calcium 8.9 mg/dL (8.5-10.5) 05/24/22 03:15 Magnesium 2.0 mg/dL (1.7-2.3) 05/24/22 03:15 Total Bilirubin 0.3 mg/dL (0.15-1.2) 05/24/22 03:15 AST 9 U/L (0-40) 05/24/22 03:15 ALT 9 U/L (0-41) 05/24/22 03:15 Alkaline Phosphatase 85 U/L (40-130) 05/24/22 03:15 Troponin T Baseline 43 ng/L (0-15) H 05/24/22 03:15 Troponin T 120 Minute 47.60 ng/L (0-15) H 05/24/22 05:45 Delta Troponin T 4.60 ABS# (0-10) 05/24/22 05:45 Troponin T Hi Sens 6Hr 56.72 ng/L (0-15) H 05/24/22 10:10 Troponin T Hi Sens 6Hr Delta 13.72 ng/L (0-12) H* 05/24/22 10:10 NT-Pro-B Natriuret Pep 743 pg/mL (0-450) H 05/24/22 03:15 Total Protein 6.4 g/dL (6.6-8.7) L 05/24/22 03:15 Albumin 3.0 g/dL (3.5-5.2) L 05/24/22 03:15 Globulin 3.4 g/dL (1.3-4.6) 05/24/22 03:15 TSH 2.22 uIU/mL (0.27-4.20) 05/24/22 03:15 Urine Color Yellow (Yellow) 05/24/22 05:24 Urine Appearance Clear (CLEAR) 05/24/22 05:24 Urine pH 9 (5-7) H 05/24/22 05:24 Ur Specific [place] 1.015 (1.005-1.030) 05/24/22 05:24 Urine Protein Neg (Negative) 05/24/22 05:24 Urine Glucose (UA) Norm (Normal) 05/24/22 05:24 Urine Ketones Negative (Negative) 05/24/22 05:24 Urine Blood 2+ (Negative) H 05/24/22 05:24 Urine Nitrate Negative (Negative) 05/24/22 05:24 Urine Bilirubin Neg (Negative) 05/24/22 05:24 Urine Urobilinogen Norm mg/dL (Negative) 05/24/22 05:24 Ur Leukocyte Esterase 1+ (Negative) H 05/24/22 05:24 Urine RBC 5-10 /hpf (0-2) H 05/24/22 05:24 Urine WBC 5-10 /hpf (0-5) H 05/24/22 05:24 Ur Squamous Epith Cells 0-4 /hpf (0-5) H 05/24/22 05:24 Triple Phos Crystals 0-4 /hpf H 05/24/22 05:24 Amorphous Sediment Not Reportable 05/24/22 05:24 Urine Bacteria 2+ /hpf (NONE) H 05/24/22 05:24 Coronavirus 229E (PCR) Not detected (NOT DETECT) 05/24/22 20:18 Influenza Type A Ag negative (Negative) 05/24/22 04:03 Influenza Type B Ag negative (Negative) 05/24/22 04:03 SARS-CoV-2 (PCR) Not detected (NOT DETECT) 05/24/22 20:18 SARS-CoV-2 Ag (Rapid) Cancelled 05/24/22 10:35 Vitals Last Vital Signs Temp 98.5 F 05/24/22 20:00 Pulse 73 05/24/22 23:21 Resp 21 H 05/24/22 23:00 BP 165/97 05/24/22 23:00 Pulse Ox 95 05/24/22 22:30 O2 Del Method 05/24/22 22:30 O2 Flow Rate 2 05/24/22 08:00 Discharge Plan Discharge Patient Disposition: Left Against Medical Advice Condition: Stable Prescriptions: No Action methenamine hippurate 1 gram tablet 1 gm PO BID Qty: 60 12RF Rx Instructions: take with 1000mg Vitamin C Asmanex HFA 100 mcg/actuation HFA aerosol inhaler 2 puff inhalation BID 30 Days Qty: 13 4RF Stiolto Respimat 2.5-2.5 mcg/actuation mist 2 puff inhalation DAILY bisacodyl 5 mg tablet 5 mg PO DAILY PRN (Reason: constipation) Qty: 30 0RF omeprazole 20 mg Capsule,Delayed Release(Dr/Ec) 20 mg PO QAM fluoxetine [Prozac] 20 mg Capsule 60 mg PO DAILY sennosides-docusate sodium [Senna-S] 8.6-50 mg Tablet 2 tab PO DAILY PRN (Reason: Constipation) ascorbic acid (vitamin C) [Vitamin C] 500 mg Tablet 1,000 mg PO BID guaifenesin 400 mg Tablet 400 mg PO TID PRN (Reason: Congestion) Ensure Plus 0.05-1.5 gram-kcal/mL Liquid 1 ea PO TID divalproex [Depakote ER] 500 mg Tablet Extended Release 24 Hr 500 mg PO BEDTIME albuterol sulfate [ProAir HFA] 90 mcg/actuation Hfa Aerosol Inhaler 2 puff INHALATION Q4H PRN (Reason: Shortness Of Breath) potassium chloride 20 mEq tablet,ER particles/crystals 10 meq PO QID metoprolol tartrate 25 mg tablet 25 mg PO BID Qty: 60 1RF ferrous gluconate 324 mg (38 mg iron) Tablet 324 mg PO DAILY ipratropium-albuterol 0.5 mg-3 mg(2.5 mg base)/3 mL solution for nebulization 3 ml inhalation QID PRN (Reason: shortness of breath) acetaminophen 500 mg tablet 500 - 1,000 mg PO QID PRN (Reason: Pain) hydrocortisone acetate 1 % cream 1 applic TOPICAL TID miconazole nitrate 2 % Aerosol Powder 1 spray TOPICAL TID PRN (Reason: infection) torsemide 10 mg Tablet 10 mg PO DAILY fluticasone propionate [Flonase] 50 mcg/actuation [place],Suspension 2 spray INTRANASAL DAILY Rx Instructions: administer into each nostril cholecalciferol (vitamin D3) [Vitamin D3] 25 mcg (1,000 unit) Tablet 25 mcg PO DAILY menthol-zinc oxide [Calmoseptine] 0.44-20.6 % Ointment 1 applic TOPICAL DAILY Referrals: Janet Martinez FNP [Primary Care Provider] - Patient Instructions: Opioid Safety Discharge Attestations Time Spent in Discharge Care*: less than 30 min Status at Discharge: Cognitive status at discharge: cognitively intact, Behavioral status at discharge: cooperative and can be uncooperative, Quality Metrics Clinical Quality Measures [ No reported AMI, CVA or VTE this stay] Coding Level of Care Code Acute Code for Chg Fwd Diagnoses Atrial fibrillation with rapid ventricular response I48.91 Chest pain R07.9 Herpes zoster B02.9 Hypokalemia E87.6 Leukocytosis D72.829 Elevated troponin R77.8 Hypoalbuminemia E88.09 COPD (chronic obstructive pulmonary disease) J44.9 COPD type: unspecified COPD Tobacco dependency F17.200 Pulmonary embolism I26.99 Acute diastolic heart failure I50.31
== END 2022-05-25 | disposition left against medical advice (07) | DRG 308 ==
LOC: ER 04:52 → CSU 08:32
PROVIDERS: Internal Medicine; Admitting Provider Family Medicine; Emergency Provider Emergency Medicine; PCP Nurse Practitioner Family; Visit Provider Internal Medicine
DX: I48.91 Unspecified atrial fibrillation (principal); I26.99 Other pulmonary embolism without acute cor pulmonale; I50.31 Acute diastolic (congestive) heart failure; B02.30 Zoster ocular disease, unspecified; Z53.29 Procedure and treatment not carried out because of patient's decision for other reasons; Z79.51 Long term (current) use of inhaled steroids; F17.210 Nicotine dependence, cigarettes, uncomplicated; I71.40 Abdominal aortic aneurysm, without rupture, unspecified; J44.9 Chronic obstructive pulmonary disease, unspecified; Z86.73 Personal history of transient ischemic attack (TIA), and cerebral infarction without residual deficits; F32.A Depression, unspecified; K21.9 Gastro-esophageal reflux disease without esophagitis; I11.0 Hypertensive heart disease with heart failure; Z98.1 Arthrodesis status; E87.6 Hypokalemia; R77.8 Other specified abnormalities of plasma proteins; R33.9 Retention of urine, unspecified; Z96.0 Presence of urogenital implants
CPT/HCPCS: 36415; 51702; 71045; 71275; 80053; 81001; 83735; 83880; 84443; 84484; 85025; 85610; 87077; 87086; 87186; 87426; 87635; 87804; 93005; 93306; 93970; 94640; 96365; 96366; 96372; 96375; 99285; J1650; J1940; J3490; J7626; Q9967

== ENCOUNTER 2022-05-26 03:19 | Emergency (ER) | payer OTHER, SELFPAY ==
--- NOTE | 2022-05-26 03:20 | ECG_ITS ---
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 Measurements Intervals [place] Rate: 67 P: 19 ID: [id number] QRS: 47 QRSD: 97 T: 75 QT: 418 QTc: 444 Interpretive Statements SINUS RHYTHM PROBABLE LATERAL MYOCARDIAL INFARCTION , OF INDETERMINATE AGE [35 ms Q WAVE IN I/aVL/V5/V6] PROBABLE INFERIOR MYOCARDIAL INFARCTION , PROBABLY OLD [35 ms Q WAVE IN II/aVF] Compared to ECG 05/24/2022 07:40:15 No significant changes Electronically Signed On 05-26-2022 21:40:37 HOME OFFICE CLAIMS EXAMINER by Kody Galindo M.D. [id number]
--- NOTE | 2022-05-26 03:20 | XRR_ITS ---
PROCEDURE INFORMATION: Exam: XR Chest Exam date and time: 05/26/2022 3:23 AM Age: 76 years old Clinical indication: Shortness of breath; Chest pressure; Prior surgery; Surgery type: Gb; Patient HX: C/O chest pain with SOB. ; Additional info: Cp TECHNIQUE: Imaging protocol: Radiologic exam of the chest. Views: 1 view. COMPARISON: CR (CHEST, ) 05/24/2022 3:17 AM FINDINGS: Lungs: Unremarkable. No consolidation. Pleural spaces: Unremarkable. No pleural effusion. No pneumothorax. Heart/Mediastinum: Unremarkable. No cardiomegaly. Bones/joints: Left AC joint area postop findings. XR/XR chest 1V portable [id number] IMPRESSION: No acute findings.
[2022-05-26 03:24] VITALS: BP 179/100; PULSE 78; RESP 18; TEMP 36.4; O2SAT 97; BMI 22.1
--- NOTE | 2022-05-26 03:25 | W.ED.CHESTPA ---
HPI - Chest Pain General: Chief Complaint: Chest Pain Stated Complaint: CHEST PAIN Time Seen by Provider: 05/26/22 03:19 Source: patient and EMS Mode of arrival: EMS Limitations: no limitations History of Present Illness: 76-year-old male who is very well-known to the ER he is admitted on Sunday with A-fib with RVR left the hospital yesterday he had called EMS as he is having chest pain tonight he states that started at roughly 2 to 3 hours ago he is now pain-free he is having dyspnea earlier as well but that is resolved as well. He denies any symptoms currently. Denies any vomiting or diarrhea. Associated symptoms: Reports dyspnea; Deny abdominal pain, fever(s), nausea or vomiting Review of Systems Const: Denies: fever(s), chills, body aches or change in appetite Eyes: Denies: blurry vision or eye discomfort ENMT: Denies: throat pain or dental pain Card: Reports: chest pain Resp: Reports: dyspnea GI: Denies: abdominal pain, nausea, vomiting or diarrhea : Denies: dysuria Musc: Denies: neck pain or back pain Skin/Breast: Denies: rash Neuro: Denies: headache(s) Psych: Denies: depression Tae/Lymph: Denies: easy bruising All/Imm: Denies: urticaria PFSH ED PFSH: Medical History Ascending aortic aneurysm Atrial fibrillation Bradycardia Chronic back pain Chronic neck pain Compression fracture of L1 lumbar vertebra COPD (chronic obstructive pulmonary disease) CVA (cerebral vascular accident) Cystitis with hematuria Depression GERD (gastroesophageal reflux disease) HTN (hypertension) Macrocytic anemia Multilevel degenerative disc disease Self-catheterizes urinary bladder Spinal stenosis, site unspecified Urinary retention Surgical History H/O laminectomy L5-S1 HEMILANIECTOMIES H/O shoulder surgery H/O spinal fusion C5-C6 History of cystoscopy in 01/2019 -chronic inflammatory changes, bladder diverticuli Hx laparoscopic cholecystectomy S/P ureteral stent placement Family History Father CAD (coronary artery disease) Social History Smoking and tobacco status: current every day smoker cigarettes Packs smoked per day: 1 Years cigarettes smoked: 60 Quit status (tobacco): not considering quitting Second hand smoke exposure: Yes Smoking risk assessment/counseling performed?: Yes Alcohol intake: never Caregiver/support person: Yes Lives independently: Yes Household members: none Marital status: service: Yes Current occupational status: disabled Current gender identity: Male Physical Exam Const: COMMON NORMALS: no acute distress, patient oriented x3 and healthy appearing HENMT: COMMON NORMALS: normocephalic and atraumatic HEAD & SCALP: normocephalic and atraumatic Eye: COMMON NORMALS: Equal, round and reactive pupils present and EOMs intact bilaterally PUPIL: Yes Equal, round and reactive pupils present Neck/C-Spine: COMMON NORMALS: full ROM and supple Chest: COMMONS NORMALS: normal inspection of the chest and normal palpation of entire chest wall Resp: COMMON NORMALS: normal respiratory effort, No retractions, No use of accessory muscles and clear to auscultation bilaterally AUSCULTATION: clear to auscultation bilaterally Cardio: COMMON NORMALS: regular rate, regular rhythm and No murmurs present (Cardio) RATE: regular rate RHYTHM: regular rhythm GI: COMMON NORMALS: Normal to inspection, nondistended, normoactive bowel sounds present, Soft to palpation, non-tender and no masses PALPATION: Yes Soft to palpation Extremity: COMMON NORMALS: normal to inspection and full ROM Neuro: COMMON NORMALS: patient oriented x3, moves all extremities and no focal motor deficits Psych: COMMON NORMALS: mental status grossly normal, Normal thought process present and cooperative THOUGHT PROCESS: Normal thought process present Skin: COMMON NORMALS: no rashes or lesions noted and no wounds GENERAL SKIN EXAM: no rashes or lesions noted Course Vital Signs: Vital signs: Vital Signs Temperature 97.5 F L 05/26/22 03:24 Pulse Rate 74 05/26/22 05:02 Respiratory Rate 28 H 05/26/22 05:02 Blood Pressure 152/89 05/26/22 05:02 Pulse Oximetry 94 05/26/22 05:02 MDM - Chest Pain Medical Decision Making Patient presents for chest pain his troponins at his baseline he had left AMA from the hospital yesterday has been pain-free here and was pain-free with EMS he states he feels improved and would like to go home his troponins at his baseline I feel he is stable at this time he is to follow-up with PCP and return if worsening. Lab Data 05/26/22 03:36 05/26/22 03:36 Laboratory Results WBC 17.5 10^3/uL (4.0-10.0) H 05/26/22 03:36 RBC 3.48 10^6/uL (4.1-5.3) L 05/26/22 03:36 Hgb 11.4 g/dL (11.7-16.6) L 05/26/22 03:36 Hct 35.7 % (42.0-52.0) L 05/26/22 03:36 MCV 102.6 fl (80-94) H 05/26/22 03:36 MCH 32.8 pg (28.0-34.0) 05/26/22 03:36 MCHC 31.9 g/dL (30.0-36.0) 05/26/22 03:36 RDW 14.6 % (12.1-15.1) 05/26/22 03:36 Plt Count 383 10^3/cmm (130-400) 05/26/22 03:36 MPV 9.9 fL (7.4-10.4) 05/26/22 03:36 Neut % (Auto) 85.3 % 05/26/22 03:36 Lymph % (Auto) 4.7 % 05/26/22 03:36 [place] % (Auto) 5.6 % 05/26/22 03:36 Eos % (Auto) 3.8 % 05/26/22 03:36 Baso % (Auto) 0.2 % 05/26/22 03:36 Neut # (Auto) 14.97 10^3/uL (1.8-7.7) H 05/26/22 03:36 Lymph # (Auto) 0.8 10^3/uL (0.8-4.8) 05/26/22 03:36 [place]ickman # (Auto) 1.0 10^3/uL (0.2-0.9) H 05/26/22 03:36 Eos # (Auto) 0.7 10^3/uL (0.0-0.8) 05/26/22 03:36 Baso # (Auto) 0.0 10^3/uL (0.0-0.1) 05/26/22 03:36 Nucleated RBC % (auto) 0 % 05/26/22 03:36 Nucleated RBCs # 0.0 /100WBC 05/26/22 03:36 Sodium 143 mmol/L (136-145) 05/26/22 03:36 Potassium 4.4 mmol/L (3.5-5.1) 05/26/22 03:36 Chloride 104 mmol/L (98-107) 05/26/22 03:36 Carbon Dioxide 26 mmol/L (22-29) 05/26/22 03:36 Anion Gap 17.4 (5-19) 05/26/22 03:36 BUN 11 mg/dL (8-23) 05/26/22 03:36 Creatinine 0.8 mg/dL (0.7-1.2) 05/26/22 03:36 GFR Calculation Not Reportable 05/26/22 03:36 Glucose 105 mg/dL (65-115) 05/26/22 03:36 Calculated Osmolality 296 mOsm/kg (285-295) H 05/26/22 03:36 Calcium 9.3 mg/dL (8.5-10.5) 05/26/22 03:36 Total Bilirubin 0.3 mg/dL (0.15-1.2) 05/26/22 03:36 AST 12 U/L (0-40) 05/26/22 03:36 ALT 11 U/L (0-41) 05/26/22 03:36 Alkaline Phosphatase 76 U/L (40-130) 05/26/22 03:36 Troponin T Baseline 44 ng/L (0-15) H 05/26/22 03:36 NT-Pro-B Natriuret Pep 2817 pg/mL (0-450) H 05/26/22 03:36 Total Protein 6.2 g/dL (6.6-8.7) L 05/26/22 03:36 Albumin 3.4 g/dL (3.5-5.2) L 05/26/22 03:36 Globulin 2.8 g/dL (1.3-4.6) 05/26/22 03:36 EKG Data EKG 1: I personally reviewed and interpreted this EKG as follows: EKG interpretation date: 05/26/22 EKG interpretation time: 03:27 Interpretation: nsr hr [address] or t wave abnormalities qrs 97 qtc 434 Discharge Plan Discharge Patient Disposition: Home Clinical Impression: Chest pain Condition: Stable Prescriptions: No Action methenamine hippurate 1 gram tablet 1 gm PO BID Qty: 60 12RF Rx Instructions: take with 1000mg Vitamin C Asmanex HFA 100 mcg/actuation HFA aerosol inhaler 2 puff inhalation BID 30 Days Qty: 13 4RF Stiolto Respimat 2.5-2.5 mcg/actuation mist 2 puff inhalation DAILY bisacodyl 5 mg tablet 5 mg PO DAILY PRN (Reason: constipation) Qty: 30 0RF omeprazole 20 mg Capsule,Delayed Release(Dr/Ec) 20 mg PO QAM fluoxetine [Prozac] 20 mg Capsule 60 mg PO DAILY sennosides-docusate sodium [Senna-S] 8.6-50 mg Tablet 2 tab PO DAILY PRN (Reason: Constipation) ascorbic acid (vitamin C) [Vitamin C] 500 mg Tablet 1,000 mg PO BID guaifenesin 400 mg Tablet 400 mg PO TID PRN (Reason: Congestion) Ensure Plus 0.05-1.5 gram-kcal/mL Liquid 1 ea PO TID divalproex [Depakote ER] 500 mg Tablet Extended Release 24 Hr 500 mg PO BEDTIME albuterol sulfate [ProAir HFA] 90 mcg/actuation Hfa Aerosol Inhaler 2 puff INHALATION Q4H PRN (Reason: Shortness Of Breath) potassium chloride 20 mEq tablet,ER particles/crystals 10 meq PO QID ferrous gluconate 324 mg (38 mg iron) Tablet 324 mg PO DAILY ipratropium-albuterol 0.5 mg-3 mg(2.5 mg base)/3 mL solution for nebulization 3 ml inhalation QID PRN (Reason: shortness of breath) acetaminophen 500 mg tablet 500 - 1,000 mg PO QID PRN (Reason: Pain) hydrocortisone acetate 1 % cream 1 applic TOPICAL TID miconazole nitrate 2 % Aerosol Powder 1 spray TOPICAL TID PRN (Reason: infection) torsemide 10 mg Tablet 10 mg PO DAILY fluticasone propionate [Flonase] 50 mcg/actuation [place],Suspension 2 spray INTRANASAL DAILY Rx Instructions: administer into each nostril cholecalciferol (vitamin D3) [Vitamin D3] 25 mcg (1,000 unit) Tablet 25 mcg PO DAILY menthol-zinc oxide [Calmoseptine] 0.44-20.6 % Ointment 1 applic TOPICAL DAILY Discharge Orders: Discharge ED (Routine); Ordered 05/26/22 Ordered By: Evin Arias Referrals: Janet Martinez, HYBRID TESTER [Primary Care Provider] - 1-3 days Discharge Diet: Advance as tolerated Discharge Activity: Resume usual activity Patient Instructions: Chest Pain (ED) Coding Level of Care Code ED Psychological Science Professor for Azam Adamson
[2022-05-26 03:31] VITALS: BP 179/100; PULSE 67; RESP 14; O2SAT 93
[2022-05-26 03:37] VITALS: BP 172/98
[2022-05-26] MEDS: hyDRALAzine 20 mg/mL INJ 1 mL 10 MG IVP (03:38)
[2022-05-26 03:43] LABS: Basophils % 0.2 %; Eosinophils # 0.7 10^3/uL (0.0-0.8); Eosinophils % 3.8 %; Hematocrit 35.7 % (42.0-52.0); Hemoglobin 11.4 g/dL (11.7-16.6); Lymphocytes # 0.8 10^3/uL (0.8-4.8); Lymphocytes % 4.7 %; Mean Corpuscular HGB Conc 31.9 g/dL (30.0-36.0); Mean Corpuscular Hemoglobin 32.8 pg (28.0-34.0); Mean Corpuscular Volume 102.6 fl (80-94); Mean Platelet Volume 9.9 fL (7.4-10.4); Monocytes % 5.6 %; Neutrophils # 14.97 10^3/uL (1.8-7.7); Neutrophils % 85.3 %; Nucleated Red Blood Cells % 0 %; Platelet Count 383 10^3/cmm (130-400); Red Blood Count 3.48 10^6/uL (4.1-5.3); Red Cell Distribution Width 14.6 % (12.1-15.1); White Blood Count 17.5 10^3/uL (4.0-10.0)
[2022-05-26 04:14] LABS: Troponin(5th) Baseline 44 ng/L (0-15)
[2022-05-26 04:21] LABS: Alanine Aminotransferase 11 U/L (0-41); Albumin Level 3.4 g/dL (3.5-5.2); Alkaline Phosphatase 76 U/L (40-130); Anion Gap 17.4 (5-19); Aspartate Amino Transferase 12 U/L (0-40); Blood Urea Nitrogen 11 mg/dL (8-23); Calcium 9.3 mg/dL (8.5-10.5); Carbon Dioxide 26 mmol/L (22-29); Chloride 104 mmol/L (98-107); Globulin 2.8 g/dL (1.3-4.6); Glucose 105 mg/dL (65-115); NT Pro B Type Natriuretic Pept 2817 pg/mL (0-450); Osmolality Calculated 296 mOsm/kg (285-295); Potassium 4.4 mmol/L (3.5-5.1); Sodium 143 mmol/L (136-145); Total Bilirubin 0.3 mg/dL (0.15-1.2); Total Protein 6.2 g/dL (6.6-8.7)
[2022-05-26 04:23] VITALS: BP 154/85; PULSE 76; RESP 20; O2SAT 94
[2022-05-26] MEDS: FUROsemide 10 mg/mL SDV 4mL 40 MG IVP (04:39)
[2022-05-26 05:02] VITALS: BP 152/89; PULSE 74; RESP 28; O2SAT 94
== END 2022-05-26 05:56 | disposition home or self-care (01) ==
PROVIDERS: Emergency Provider Emergency Medicine; PCP Nurse Practitioner Family
DX: R07.9 Chest pain, unspecified (principal); J44.9 Chronic obstructive pulmonary disease, unspecified; Z86.73 Personal history of transient ischemic attack (TIA), and cerebral infarction without residual deficits; I10 Essential (primary) hypertension; F17.210 Nicotine dependence, cigarettes, uncomplicated
CPT/HCPCS: 71045; 80053; 83880; 84484; 85025; 93005; 96374; 96375; 99285; J0360; J1940

== ENCOUNTER 2022-05-26 07:18 | Emergency (ER) | payer OTHER, SELFPAY ==
[2022-05-26] VITALS (11 sets, daily range): BP systolic 97–122; BP diastolic 66–78; PULSE 72–134; RESP 16–26; O2SAT 94–97
--- NOTE | 2022-05-26 07:20 | ED_ITS ---
HPI - SOB/Dyspnea General: Chief Complaint: Shortness of Breath/Dyspnea Stated Complaint: sob Time Seen by Provider: 05/26/22 07:20 History of Present Illness: HPI Narrative: Mr. Herrera is a 76-year-old gentleman with history of heart failure, chest pain, atrial fibrillation, suprapubic catheter, COPD presenting to the emergency department for concern over chest pain. He has a recent hospitalization for evaluation of atrial fibrillation with RVR and subsequently return to the emergency department at 3:25 AM and was evaluated by prior ED physician. At that time he was reporting 2 to 3 hours of chest pain and dyspnea that have resolved. He had labs and imaging and felt improved and wished for discharge. He has been in the waiting room since and checks back and forth return of pain and symptoms. Intensity symptoms moderate. He endorses abdominal as well as chest discomfort. No other specific changes in health, exacerbating, or alleviating factors identified. Onset (ago): hour(s) Timing: constant Severity: moderate Relieving factors: nothing Known history of: COPD, congestive heart failure and other Associated symptoms: Reports abdominal pain Review of Systems General: Reports: 10 or more systems reviewed and unremarkable except in HPI and below GI: Reports: abdominal pain PFSH ED PFSH: Medical History Ascending aortic aneurysm Atrial fibrillation Bradycardia Chronic back pain Chronic neck pain Compression fracture of L1 lumbar vertebra COPD (chronic obstructive pulmonary disease) CVA (cerebral vascular accident) Cystitis with hematuria Depression GERD (gastroesophageal reflux disease) HTN (hypertension) Macrocytic anemia Multilevel degenerative disc disease Self-catheterizes urinary bladder Spinal stenosis, site unspecified Urinary retention Surgical History H/O laminectomy L5-S1 HEMILANIECTOMIES H/O shoulder surgery H/O spinal fusion C5-C6 History of cystoscopy in 01/2019 -chronic inflammatory changes, bladder diverticuli Hx laparoscopic cholecystectomy S/P ureteral stent placement Family History Father CAD (coronary artery disease) Social History Smoking and tobacco status: current every day smoker cigarettes Packs smoked per day: 1 Years cigarettes smoked: 60 Quit status (tobacco): not considering quitting Second hand smoke exposure: Yes Smoking risk assessment/counseling performed?: Yes Alcohol intake: never Caregiver/support person: Yes Lives independently: Yes Household members: none Marital status: service: Yes Current occupational status: disabled Current gender identity: Male Physical Exam Const: COMMON NORMALS: alert GENERAL APPEARANCE: cooperative and well developed HENMT: COMMON NORMALS: normocephalic and atraumatic HEAD & SCALP: normocephalic and atraumatic Eye: COMMON NORMALS: conjunctivae normal CONJUNCTIVA: Yes conjunctivae normal SCLERA: sclerae normal Neck/C-Spine: COMMON NORMALS: supple GENERAL: Yes trachea midline Resp: EFFORT & INSPECTION: Yes tachypneic AUSCULTATION: no crackles, no rhonchi, no wheezes and diminished lung sounds (RLL) Cardio: RATE: tachycardic RHYTHM: abnormal rhythm irregularly irregular GI: COMMON NORMALS: Soft to palpation PALPATION: Yes Soft to palpation, Yes Tenderness to palpation present (GI), No Guarding due to palpation present (GI) and No Rigid due to palpation Extremity: GENERAL: Yes normal exam except as noted and Yes edema Neuro: COMMON NORMALS: moves all extremities SENSORIUM/ORIENTATION: Yes alert and No Orientation impaired Psych: COMMON NORMALS: mental status grossly normal and Normal thought process present THOUGHT PROCESS: Normal thought process present Course Vital Signs: Vital signs: Vital Signs Pulse Rate 74 05/26/22 09:53 Respiratory Rate 20 H 05/26/22 09:53 Blood Pressure 121/76 05/26/22 09:53 Pulse Oximetry 95 05/26/22 09:53 Oxygen Delivery Ia thod 05/26/22 09:25 MDM - SOB/Dyspnea Medical Decision Making 76-year-old gentleman presenting back to the ER after being seen earlier. While in the waiting room he endorses onset of chest pain and shortness of breath and is found to be in A-fib with RVR. EKG notable for atrial fibrillation with RVR, normal axis and intervals, no STEMI Labs from earlier in the morning were reviewed and personally interpreted by me. Additional testing is appropriate. Chest x-ray demonstrates no lobar consolidation or pneumothorax. Patient treated with analgesia, Cardizem, torsemide, RT treatment. Patient had successful sustained rate control. Upon reassessment patient reports resolution of symptoms, he is resting comfortably. He does report compliance with his medication regimen though I do not see metoprolol on his medication list or other antiarrhythmic. Most likely etiology of patient's symptoms is atrial fibrillation with rapid ventricular response secondary to not being on antiarrhythmic medication because he left AGAINST MEDICAL ADVICE from the hospital. Plan to initiate antiarrhythmic as described in prior history and physical for admission. The results of ED evaluation were discussed with the patient including prescriptions and/or symptomatic cares (if applicable) including appropriate and responsible use, followup plan, and return precautions. The patient verbalized understanding and felt safe for discharge. Medical Records I reviewed the patient's medical records. Lab Data I reviewed the patient's lab results. Labs/Radiology: Radiology Impressions Chest X-Ray 05/26/22 07:22 IMPRESSION: No evidence of focal consolidation. COPD changes. Laboratory Results Troponin T Gen 5 ng/L 54 ng/L (0-15) H 05/26/22 07:30 Urine Color Yellow (Yellow) 05/26/22 08:00 Urine Appearance Clear (CLEAR) 05/26/22 08:00 Urine pH 9 (5-7) H 05/26/22 08:00 Ur Specific [place] 1.015 (1.005-1.030) 05/26/22 08:00 Urine Protein 1+ (Negative) H 05/26/22 08:00 Urine Glucose (UA) Norm (Normal) 05/26/22 08:00 Urine Ketones 1+ (Negative) H 05/26/22 08:00 Urine Blood 2+ (Negative) H 05/26/22 08:00 Urine Nitrate Negative (Negative) 05/26/22 08:00 Urine Bilirubin Neg (Negative) 05/26/22 08:00 Urine Urobilinogen Neg mg/dL (Negative) 05/26/22 08:00 Ur Leukocyte Esterase Trace (Negative) H 05/26/22 08:00 Urine RBC 0-4 /hpf (0-2) H 05/26/22 08:00 Urine WBC None /hpf (0-5) 05/26/22 08:00 Ur Squamous Epith Cells 0-4 /hpf (0-5) H 05/26/22 08:00 Amorphous Sediment Not Reportable 05/26/22 08:00 Urine Bacteria None /hpf (NONE) 05/26/22 08:00 Urine Mucus 1+ /hpf 05/26/22 08:00 Discharge Plan Discharge Patient Disposition: Home Clinical Impression: Atrial fibrillation with rapid ventricular response, Chest pain, Abdominal pain Condition: Stable Prescriptions: New metoprolol tartrate 25 mg tablet 25 mg PO BID Qty: 60 1RF No Action methenamine hippurate 1 gram tablet 1 gm PO BID Qty: 60 12RF Rx Instructions: take with 1000mg Vitamin C Asmanex HFA 100 mcg/actuation HFA aerosol inhaler 2 puff inhalation BID 30 Days Qty: 13 4RF Stiolto Respimat 2.5-2.5 mcg/actuation mist 2 puff inhalation DAILY bisacodyl 5 mg tablet 5 mg PO DAILY PRN (Reason: constipation) Qty: 30 0RF omeprazole 20 mg Capsule,Delayed Release(Dr/Ec) 20 mg PO QAM fluoxetine [Prozac] 20 mg Capsule 60 mg PO DAILY sennosides-docusate sodium [Senna-S] 8.6-50 mg Tablet 2 tab PO DAILY PRN (Reason: Constipation) ascorbic acid (vitamin C) [Vitamin C] 500 mg Tablet 1,000 mg PO BID guaifenesin 400 mg Tablet 400 mg PO TID PRN (Reason: Congestion) Ensure Plus 0.05-1.5 gram-kcal/mL Liquid 1 ea PO TID divalproex [Depakote ER] 500 mg Tablet Extended Release 24 Hr 500 mg PO BEDTIME albuterol sulfate [ProAir HFA] 90 mcg/actuation Hfa Aerosol Inhaler 2 puff INHALATION Q4H PRN (Reason: Shortness Of Breath) potassium chloride 20 mEq tablet,ER particles/crystals 10 meq PO QID ferrous gluconate 324 mg (38 mg iron) Tablet 324 mg PO DAILY ipratropium-albuterol 0.5 mg-3 mg(2.5 mg base)/3 mL solution for nebulization 3 ml inhalation QID PRN (Reason: shortness of breath) acetaminophen 500 mg tablet 500 - 1,000 mg PO QID PRN (Reason: Pain) hydrocortisone acetate 1 % cream 1 applic TOPICAL TID miconazole nitrate 2 % Aerosol Powder 1 spray TOPICAL TID PRN (Reason: infection) torsemide 10 mg Tablet 10 mg PO DAILY fluticasone propionate [Flonase] 50 mcg/actuation [place],Suspension 2 spray INTRANASAL DAILY Rx Instructions: administer into each nostril cholecalciferol (vitamin D3) [Vitamin D3] 25 mcg (1,000 unit) Tablet 25 mcg PO DAILY menthol-zinc oxide [Calmoseptine] 0.44-20.6 % Ointment 1 applic TOPICAL DAILY Discharge Orders: Discharge ED (Routine); Ordered 05/26/22 Ordered By: Gerry Sanchez Referrals: Janet Martinez, WIND TURBINE ENGINEER [Primary Care Provider] - Discharge Diet: As Directed Discharge Activity: Limit activity as instructed Patient Instructions: A-fib (Atrial Fibrillation) (ED), Chest Pain (ED), Abdominal Pain (ED) Activity Restrictions/Additional Instructions: Thank you for visiting the emergency department. You were seen and evaluated for chest and abdominal pain. You are found to have atrial fibrillation with rapid ventricular response which was successfully treated to the emergency department. Given improvement/resolution of other symptoms I believe that this was likely the underlying cause. You do not require inpatient hospitalization at this time. I do not see medications for rate control or rhythm control on your medication list. I will prescribe metoprolol. Please continue your other medications. I will message case management for cardiology follow-up. Return to the emergency department for anything that you are concerned about and feel needs emergency department evaluation. Coding Level of Care Code ED Enrollment Management Vice President for Azam Adamson
--- NOTE | 2022-05-26 07:22 | XRR_ITS ---
PROCEDURE INFORMATION: Exam: XR Chest Exam date and time: 05/26/2022 7:34 AM Age: 76 years old Clinical indication: Shortness of breath; Prior surgery; Surgery type: Kimberli; Additional info: SOB TECHNIQUE: Imaging protocol: Radiologic exam of the chest. Views: 1 view. COMPARISON: CR (CHEST, ) 05/26/2022 3:23 AM FINDINGS: Lungs: The lungs are somewhat hyperinflated with increased interstitial markings, likely representing COPD. No evidence of focal consolidation to suggest pneumonia. Pleural spaces: Unremarkable. No pleural effusion. No pneumothorax. Heart/Mediastinum: Stable cardiomediastinal silhouette. Bones/joints: Mild degenerative changes of the spine and shoulder joints noted. XR/XR chest 1V portable [id number] IMPRESSION: No evidence of focal consolidation. COPD changes.
[2022-05-26] MEDS: ketorolac 30 mg/mL INJ 15 MG IVP (07:49)
[2022-05-26] MEDS: lidocaine 2% viscous 15 ML, aluminum-mag hydrox-simethicon 30 ML, sucralfate oral liq 1 GM PO (07:49)
[2022-05-26 07:52] LABS: Troponin T (5th) Once 54 ng/L (0-15)
--- NOTE | 2022-05-26 08:24 | PC.PHAR ---
pt states his medications are still the same as they were when they were gone over on 05/24/22 in [facility]-
[2022-05-26] MEDS: dilTIAZem 5 mg/mL SDV 5 mL 15 MG IVP (08:26)
--- NOTE | 2022-05-26 08:35 | ECG_ITS ---
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 Measurements Intervals [place] Rate: 131 P: 267 TN: 197 QRS: 51 QRSD: 90 T: 78 QT: 318 QTc: 470 Interpretive Statements ECTOPIC ATRIAL TACHYCARDIA POSSIBLE INFERIOR MYOCARDIAL INFARCTION , PROBABLY OLD [30 ms Q WAVE IN II/aVF] ST DEPRESSION, CONSIDER SUBENDOCARDIAL INJURY [0.1+ mV ST DEPRESSION] Compared to ECG 05/26/2022 03:27:41 ST (T wave) deviation now present Sinus rhythm no longer present Myocardial infarct finding still present Electronically Signed On 05-26-2022 21:42:53 HEARING THERAPY DIRECTOR by Kody Galindo M.D. [id number]
[2022-05-26] MEDS: dilTIAZem 5 mg/mL SDV 5 mL 10 MG IVP (08:41)
[2022-05-26 08:53] LABS: Bilirubin Urine Neg (Negative); Blood Urine 2+ (Negative); Glucose Urine UA Norm (Normal); Ketones Urine 1+ (Negative); Leukocyte Esterase Urine Trace (Negative); Nitrate Urine Negative (Negative); Protein Urine 1+ (Negative); Specific Gravity, Urine 1.015 (1.005-1.030); Urine Appearance Clear (CLEAR); Urine Color Yellow (Yellow); Urobilinogen Urine Neg (Negative); pH Urine 9 (5-7)
[2022-05-26 08:54] LABS: Add Urine Microscopic? YES; Mucus Urine 1+ /hpf; RBC Urine 0-4 /hpf (0-2); Squamous Epithelial Cell Urine 0-4 /hpf (0-5)
--- NOTE | 2022-05-26 08:56 | ECG_ITS ---
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 Measurements Intervals [place] Rate: 71 P: 76 OR: 185 QRS: 57 QRSD: 94 T: 83 QT: 411 QTc: 447 Interpretive Statements SINUS RHYTHM INFERIOR MYOCARDIAL INFARCTION , PROBABLY OLD [40+ ms Q WAVE AND/OR ST/T ABNORMALITY IN II/aVF] Compared to ECG 05/26/2022 08:35:41 ST (T wave) deviation no longer present Myocardial infarct finding still present Electronically Signed On 05-26-2022 21:43:25 BELTING INSPECTOR by Kody Galindo M.D. [id number]
[2022-05-26] MEDS: TORSEmide 20 mg Tablet 10 MG PO (09:20)
[2022-05-26] MEDS: albuterol 2.5 mg/3 mL Neb INHALATION (09:29)
--- NOTE | 2022-05-29 09:56 | DCPLANNER ---
Addendum entered by Halima Geronimo 08/08/22 14:14: Patient had a follow up appointment scheduled with heart care - patient did not attend appointment. Addendum entered by Halima Geronimo 06/01/22 07:06: Patient has a follow up appointment scheduled for Sunday, July 24, 2022 at 1:[address] Juarez at [facility]. Clinic will call patient with appointment information. Original Note: geophysical manager had message to schedule a follow up appointment for patient with cardiology. geophysical manager sent patients information to the front office staff at [facility]. Patients information will be printed and reviewed. Clinic will call patient with appointment information.
== END 2022-05-26 09:56 | disposition home or self-care (01) ==
PROVIDERS: Emergency Provider Emergency Medicine; PCP Nurse Practitioner Family
DX: I48.20 Chronic atrial fibrillation, unspecified (principal); R07.9 Chest pain, unspecified; R10.9 Unspecified abdominal pain; J44.9 Chronic obstructive pulmonary disease, unspecified; Z86.73 Personal history of transient ischemic attack (TIA), and cerebral infarction without residual deficits; I10 Essential (primary) hypertension; F17.210 Nicotine dependence, cigarettes, uncomplicated
CPT/HCPCS: 36415; 71045; 81001; 84484; 93005; 94640; 96374; 96375; 96376; 99285; J1885; J3490; J7613

== ENCOUNTER 2022-09-25 12:57 | Outpatient (CLI) | payer OTHER, SELFPAY ==
[2022-09-25 13:44] LABS: Alanine Aminotransferase 9 U/L (0-41); Alkaline Phosphatase 76 U/L (40-130); Aspartate Amino Transferase 10 U/L (0-40); Globulin 2.4 g/dL (1.3-4.6); Total Bilirubin 0.2 mg/dL (0.15-1.2); Total Protein 6.4 g/dL (6.6-8.7)
== END 2022-09-25 12:58 | disposition home or self-care (01) ==
PROVIDERS: PCP Nurse Practitioner Family; Visit Provider Nurse Practitioner Family
DX: R19.5 Other fecal abnormalities (principal)
CPT/HCPCS: 80076; 85025

== ENCOUNTER 2023-06-25 22:14 | Emergency (ER) | payer OTHER, SELFPAY ==
[2023-06-25 22:16] VITALS: BP 145/85; PULSE 70; RESP 18; TEMP 36.7; O2SAT 96; BMI 21.1
--- NOTE | 2023-06-25 22:32 | W.ED.MALEGU ---
Documented by User: CLARY Phelps 06/25/23 22:36 HPI - Male Genitourinary General: Chief complaint: Urogenital-Male Stated complaint: suprapubic catheter issues Time Seen by Provider: 06/25/23 22:20 Source: patient Mode of arrival: EMS Limitations: no limitations History of Present Illness: Patient is a 77-year-old male who presents the emergency department due to catheter issue. Patient noted that his catheter was kinked up and it was not draining urine. On arrival, his catheter is replaced and immediately starts draining. He had no other complaints, such as no urinary complaints or abdominal pain. He is also requesting that he be shown ways to take the catheter so that it does not become kinked again. Associated symptoms: Deny dysuria, nausea or vomiting Review of Systems General: Reports: 10 or more systems reviewed and unremarkable except in HPI and below Const: Denies: fever(s), chills or fatigue Eyes: Denies: change in vision ENMT: Denies: throat pain, ear or mastoid pain or nasal discharge Card: Denies: chest pain, palpitations, swelling of feet/ankles or lightheadedness Resp: Denies: dyspnea, productive cough or wheezing GI: Denies: abdominal pain, nausea, vomiting, diarrhea or constipation : Reports: other (Catheter problem); Denies: flank pain, difficulty urinating, dysuria or urinary frequency Musc: Denies: neck pain, back pain or joint pain Skin/Breast: Denies: rash Neuro: Denies: headache(s), numbness in extremities or weakness in extremities PFS ED PFSH: Medical History Depression Atrial fibrillation Self-catheterizes urinary bladder Urinary retention CVA (cerebral vascular accident) Spinal stenosis, site unspecified Chronic neck pain Chronic back pain Cystitis with hematuria Multilevel degenerative disc disease Compression fracture of L1 lumbar vertebra Macrocytic anemia Ascending aortic aneurysm GERD (gastroesophageal reflux disease) Bradycardia HTN (hypertension) COPD (chronic obstructive pulmonary disease) Surgical History H/O shoulder surgery History of cystoscopy in 01/2019 -chronic inflammatory changes, bladder diverticuli S/P ureteral stent placement Hx laparoscopic cholecystectomy H/O laminectomy L5-S1 HEMILANIECTOMIES H/O spinal fusion C5-C6 Family History Father CAD (coronary artery disease) Social History Smoking and tobacco/nicotine status: current every day tobacco/nicotine user cigarettes Packs smoked per day: 1 Years cigarettes smoked: 60 Quit status (tobacco/nicotine): not considering quitting Second hand smoke exposure: Yes Alcohol intake: never Substance/Drug Use: never Caregiver/support person: Yes Lives independently: Yes Household members: none Marital status: service: Yes Current occupational status: disabled Do you think of yourself as: Straight/Heterosexual Current gender identity: Male Physical Exam Const: COMMON NORMALS: no acute distress, average body habitus, patient oriented x3, no limitations, healthy appearing, alert and well nourished GENERAL APPEARANCE: cooperative and comfortable ORIENTATION/CONSCIOUSNESS: Yes awake HENMT: COMMON NORMALS: normocephalic, atraumatic, hearing grossly normal bilaterally, external ears normal, Normal external nose present, Normal nasal mucous membranes and turbinates present and moist oral mucous membranes HEAD & SCALP: normocephalic and atraumatic NOSE: Normal external nose present and Normal nasal mucous membranes and turbinates present EXTERNAL EAR: Yes external ears normal Eye: COMMON NORMALS: Equal, round and reactive pupils present, EOMs intact bilaterally, conjunctivae normal and normal visual rodriguez by confrontation CONJUNCTIVA: Yes conjunctivae normal PUPIL: Yes Equal, round and reactive pupils present Neck/C-Spine: COMMON NORMALS: full ROM, supple, no meningeal signs and no JVD Resp: COMMON NORMALS: normal respiratory effort, No retractions, No use of accessory muscles and clear to auscultation bilaterally AUSCULTATION: clear to auscultation bilaterally, no crackles, no rales, no rhonchi and no wheezes Cardio: COMMON NORMALS: no JVD, regular rate, regular rhythm, S1 normal heart sound present, S2 normal heart sound present, No gallops present (Cardio), No clicks present (Cardio), No murmurs present (Cardio), No rub (Cardio) and Peripheral pulses 2+ throughout RATE: regular rate RHYTHM: regular rhythm HEART SOUNDS: S1 normal heart sound present and S2 normal heart sound present PERIPHERAL PULSES: Peripheral pulses 2+ throughout GI: COMMON NORMALS: Normal to inspection, nondistended, normoactive bowel sounds present, Soft to palpation, non-tender, No hepatosplenomegaly present and no masses AUSCULTATION: Yes normoactive bowel sounds PALPATION: Yes Soft to palpation, No Guarding due to palpation present (GI), No Rigid due to palpation and Yes No hepatosplenomegaly present RECTAL EXAM: Yes deferred : BLADDER/KIDNEY EXAM: Yes catheter in place Catheter type (Male): suprapubic and Yes bladder normal to palpation OTHER: Upon recheck after new Lowery catheter placed, urine is draining adequately Extremity: COMMON NORMALS: normal to inspection and full ROM Neuro: COMMON NORMALS: patient oriented x3, moves all extremities, no focal motor deficits and no sensory deficits noted SENSORIUM/ORIENTATION: Yes alert MENINGEAL SIGNS: Yes no meningeal signs Psych: COMMON NORMALS: mental status grossly normal, cooperative and speech normal SPEECH: Yes normal speech Skin: COMMON NORMALS: no rashes or lesions noted GENERAL SKIN EXAM: no rashes or lesions noted Course Vital Signs: Vital signs: Vital Signs Temperature 98.0 F 06/25/23 23:45 Pulse Rate 70 06/25/23 23:45 Respiratory Rate 18 06/25/23 23:45 Blood Pressure 145/85 06/25/23 23:45 Pulse Oximetry 96 06/25/23 23:45 Oxygen Delivery Me thod Room Air 06/25/23 22:16 MDM - Male Medical Decision Making This patient was seen and evaluated in the emergency department today due to a kinked Lowery catheter. Vitals normal on arrival. His Lowery catheter is replaced while being triaged, in which urine begins to immediately flow. He has no other complaints and abdomen is nontender to palpation. No other labs or testing needed at this point, and patient is appropriate for discharge home. Return precautions are given and he is shown how to adequately tape down the Lowery catheter so that it does not become kinked in the future. No radiology studies performed this visit Discharge Plan Discharge Patient Disposition: Home Clinical Impression: Lowery catheter problem Qualifiers: Encounter type: initial encounter Qualified Code(s): T83.9XXA - Unspecified complication of genitourinary prosthetic device, implant and graft, initial encounter Condition: Stable Prescriptions: No Action methenamine hippurate 1 gram tablet 1 gm PO BID Qty: 60 12RF Rx Instructions: take with 1000mg Vitamin C Asmanex HFA 100 mcg/actuation HFA aerosol inhaler 2 puff inhalation BID 30 Days Qty: 13 4RF Stiolto Respimat 2.5-2.5 mcg/actuation mist 2 puff inhalation DAILY bisacodyl 5 mg tablet 5 mg PO DAILY PRN (Reason: constipation) Qty: 30 0RF omeprazole 20 mg Capsule,Delayed Release(Dr/Ec) 20 mg PO QAM fluoxetine [Prozac] 20 mg Capsule 60 mg PO DAILY sennosides-docusate sodium [Senna-S] 8.6-50 mg Tablet 2 tab PO DAILY PRN (Reason: Constipation) ascorbic acid (vitamin C) [Vitamin C] 500 mg Tablet 1,000 mg PO BID guaifenesin 400 mg Tablet 400 mg PO TID PRN (Reason: Congestion) Ensure Plus 0.05-1.5 gram-kcal/mL Liquid 1 ea PO TID divalproex [Depakote ER] 500 mg Tablet Extended Release 24 Hr 500 mg PO BEDTIME albuterol sulfate [ProAir HFA] 90 mcg/actuation Hfa Aerosol Inhaler 2 puff INHALATION Q4H PRN (Reason: Shortness Of Breath) potassium chloride 20 mEq tablet,ER particles/crystals 10 meq PO QID metoprolol tartrate 25 mg tablet 25 mg PO BID Qty: 60 1RF ferrous gluconate 324 mg (38 mg iron) Tablet 324 mg PO DAILY ipratropium-albuterol 0.5 mg-3 mg(2.5 mg base)/3 mL solution for nebulization 3 ml inhalation QID PRN (Reason: shortness of breath) acetaminophen 500 mg tablet 500 - 1,000 mg PO QID PRN (Reason: Pain) hydrocortisone acetate 1 % cream 1 applic TOPICAL TID miconazole nitrate 2 % Aerosol Powder 1 spray TOPICAL TID PRN (Reason: infection) torsemide 10 mg Tablet 10 mg PO DAILY fluticasone propionate [Flonase] 50 mcg/actuation [place],Suspension 2 spray INTRANASAL DAILY Rx Instructions: administer into each nostril cholecalciferol (vitamin D3) [Vitamin D3] 25 mcg (1,000 unit) Tablet 25 mcg PO DAILY menthol-zinc oxide [Calmoseptine] 0.44-20.6 % Ointment 1 applic TOPICAL DAILY Discharge Orders: Discharge ED (Routine); Ordered 06/25/23 Ordered By: Mich Mckee Referrals: Janet Martinez FNP [Primary Care Provider] - Discharge Diet: Usual diet Discharge Activity: Increase activity as tolerated Patient Instructions: Lowery Catheter Placement and Care (ED) Activity Restrictions/Additional Instructions: Return with any other complications to your Lowery catheter. Follow-up with primary care. Coding Level of Care Code ED Mangle Press Catcher for Chg Fwd Documented by User: Dileep Verduzco DO 06/30/23 08:21 HPI - Male Genitourinary General: Chief complaint: Urogenital-Male Stated complaint: suprapubic catheter issues Time Seen by Provider: 06/25/23 22:20 PFSH ED PFSH: Medical History Depression Atrial fibrillation Self-catheterizes urinary bladder Urinary retention CVA (cerebral vascular accident) Spinal stenosis, site unspecified Chronic neck pain Chronic back pain Cystitis with hematuria Multilevel degenerative disc disease Compression fracture of L1 lumbar vertebra Macrocytic anemia Ascending aortic aneurysm GERD (gastroesophageal reflux disease) Bradycardia HTN (hypertension) COPD (chronic obstructive pulmonary disease) Surgical History H/O shoulder surgery History of cystoscopy in 01/2019 -chronic inflammatory changes, bladder diverticuli S/P ureteral stent placement Hx laparoscopic cholecystectomy H/O laminectomy L5-S1 HEMILANIECTOMIES H/O spinal fusion C5-C6 Family History Father CAD (coronary artery disease) Social History Smoking and tobacco/nicotine status: current every day tobacco/nicotine user cigarettes Packs smoked per day: 1 Years cigarettes smoked: 60 Quit status (tobacco/nicotine): not considering quitting Second hand smoke exposure: Yes Alcohol intake: never Substance/Drug Use: never Caregiver/support person: Yes Lives independently: Yes Household members: none Marital status: service: Yes Current occupational status: disabled Do you think of yourself as: Straight/Heterosexual Current gender identity: Male Course Vital Signs: Vital signs: Vital Signs Temperature 98.0 F 06/25/23 23:45 Pulse Rate 70 06/25/23 23:45 Respiratory Rate 18 06/25/23 23:45 Blood Pressure 145/85 06/25/23 23:45 Pulse Oximetry 96 06/25/23 23:45 Oxygen Delivery Me thod Room Air 06/25/23 22:16 MDM - Male Medical Decision Making This patient was seen and evaluated in the emergency department today due to a kinked Lowery catheter. Vitals normal on arrival. His Lowery catheter is replaced while being triaged, in which urine begins to immediately flow. He has no other complaints and abdomen is nontender to palpation. No other labs or testing needed at this point, and patient is appropriate for discharge home. Return precautions are given and he is shown how to adequately tape down the Lowery catheter so that it does not become kinked in the future. Chart reviewed Discharge Plan Discharge Patient Disposition: Home Clinical Impression: Lowery catheter problem Qualifiers: Encounter type: initial encounter Qualified Code(s): T83.9XXA - Unspecified complication of genitourinary prosthetic device, implant and graft, initial encounter Condition: Stable Prescriptions: No Action methenamine hippurate 1 gram tablet 1 gm PO BID Qty: 60 12RF Rx Instructions: take with 1000mg Vitamin C Asmanex HFA 100 mcg/actuation HFA aerosol inhaler 2 puff inhalation BID 30 Days Qty: 13 4RF Stiolto Respimat 2.5-2.5 mcg/actuation mist 2 puff inhalation DAILY bisacodyl 5 mg tablet 5 mg PO DAILY PRN (Reason: constipation) Qty: 30 0RF omeprazole 20 mg Capsule,Delayed Release(Dr/Ec) 20 mg PO QAM fluoxetine [Prozac] 20 mg Capsule 60 mg PO DAILY sennosides-docusate sodium [Senna-S] 8.6-50 mg Tablet 2 tab PO DAILY PRN (Reason: Constipation) ascorbic acid (vitamin C) [Vitamin C] 500 mg Tablet 1,000 mg PO BID guaifenesin 400 mg Tablet 400 mg PO TID PRN (Reason: Congestion) Ensure Plus 0.05-1.5 gram-kcal/mL Liquid 1 ea PO TID divalproex [Depakote ER] 500 mg Tablet Extended Release 24 Hr 500 mg PO BEDTIME albuterol sulfate [ProAir HFA] 90 mcg/actuation Hfa Aerosol Inhaler 2 puff INHALATION Q4H PRN (Reason: Shortness Of Breath) potassium chloride 20 mEq tablet,ER particles/crystals 10 meq PO QID metoprolol tartrate 25 mg tablet 25 mg PO BID Qty: 60 1RF ferrous gluconate 324 mg (38 mg iron) Tablet 324 mg PO DAILY ipratropium-albuterol 0.5 mg-3 mg(2.5 mg base)/3 mL solution for nebulization 3 ml inhalation QID PRN (Reason: shortness of breath) acetaminophen 500 mg tablet 500 - 1,000 mg PO QID PRN (Reason: Pain) hydrocortisone acetate 1 % cream 1 applic TOPICAL TID miconazole nitrate 2 % Aerosol Powder 1 spray TOPICAL TID PRN (Reason: infection) torsemide 10 mg Tablet 10 mg PO DAILY fluticasone propionate [Flonase] 50 mcg/actuation [place],Suspension 2 spray INTRANASAL DAILY Rx Instructions: administer into each nostril cholecalciferol (vitamin D3) [Vitamin D3] 25 mcg (1,000 unit) Tablet 25 mcg PO DAILY menthol-zinc oxide [Calmoseptine] 0.44-20.6 % Ointment 1 applic TOPICAL DAILY Discharge Orders: Discharge ED (Routine); Ordered 06/25/23 Ordered By: Mich Mckee Referrals: Janet Martinez, [employer] TECHNICIAN SUPERVISOR [Primary Care Provider] - Discharge Diet: Usual diet Discharge Activity: Increase activity as tolerated Patient Instructions: Lowery Catheter Placement and Care (ED) Activity Restrictions/Additional Instructions: Return with any other complications to your Lowery catheter. Follow-up with primary care. Coding Level of Care Code ED Mangle Press Catcher for Azam Adamson
[2023-06-25 23:45] VITALS: BP 145/85; PULSE 70; RESP 18; TEMP 36.7; O2SAT 96
== END 2023-06-25 23:46 | disposition home or self-care (01) ==
PROVIDERS: Emergency Provider Physician Assistant; PCP Nurse Practitioner Family
DX: T83.9XXA Unspecified complication of genitourinary prosthetic device, implant and graft, initial encounter (principal); Y73.1 Therapeutic (nonsurgical) and rehabilitative gastroenterology and urology devices associated with adverse incidents; F17.210 Nicotine dependence, cigarettes, uncomplicated; Z86.73 Personal history of transient ischemic attack (TIA), and cerebral infarction without residual deficits; I10 Essential (primary) hypertension; J44.9 Chronic obstructive pulmonary disease, unspecified
CPT/HCPCS: 51798; 99282

== ENCOUNTER 2023-07-31 09:37 | Emergency (ER) | payer OTHER, SELFPAY ==
[2023-07-31 09:38] VITALS: BP 94/74; PULSE 98; TEMP 36.7; O2SAT 95; BMI 19.3
--- NOTE | 2023-07-31 09:45 | CT_ITS ---
WS: [id number] CT ABDOMEN AND PELVIS WITH CONTRAST HISTORY: abdominal pain, N/V/D TECHNIQUE: Imaging performed of the abdomen and pelvis with IV contrast. Single phase imaging of the abdomen. Coronal and sagittal reformats are submitted. All CT scans at [facility] use at [facility] one of these dose optimization techniques: automated exposure control; mA and/or kV adjustment per patient size (includes targeted exams where dose is matched to clinical indication); or iterative re construction. IV CONTRAST: Omnipaque 350; 80 mL IV. Oral contrast: No DLP: 356.68 mGy.cm COMPARISON: 05/06/2022 Lower thorax: Lung bases are clear. Heart is normal size. No hiatal hernia. Liver/biliary system: Normal size with no intrahepatic dilatation. Gallbladder: Prior cholecystectomy. Normal common bile duct size. Pancreas: Mild diffuse atrophy. No mass. Spleen: Small size spleen. May be atrophied. Adrenal glands: Normal. Right kidney: Normal size kidney. Numerous cortical hypodensities consistent with cysts. Some of thes e are too small to characterize. The largest cyst in the upper pole with a maximum diameter 1.6 cm. Left kidney: Normal size kidney with multiple renal cysts. The largest cyst is 5.0 cm in the upper po le. No obstruction. Aorta: Moderate atherosclerosis with no aneurysm. Lymphadenopathy: None. Free fluid: None. GI tract: Nondistended stomach. No small bowel obstruction. There is increased air and fecal material in the colon. The distal colon is not as distended. No mass identified. No evidence for acute divert iculitis. Abdominal wall: Fat containing umbilical hernia. Pelvis: Suprapubic catheter. Urinary bladder is not distended. No free fluid or adenopathy. Bones: Bones are osteopenic. Anterior wedging of L1 by 10%. Mild narrowing of the hip joints. Bone gr afting site from the RIGHT ilium. CT/CT abdomen pelvis w con* [id number] IMPRESSION: 1. No acute abdominal or pelvic abnormalities. 2. There is increased air and fecal material throughout the colon. Change in c aliber of the descending colon but no mass. 3. Bilateral renal cysts. 4. Prior cholecystectomy. 5. Moderate atherosclerosis aorta. 6. No adenopathy or ascites. 7. Suprapubic catheter.
--- NOTE | 2023-07-31 09:45 | XRR_ITS ---
PROCEDURE INFORMATION: Exam: XR Chest Exam date and time: 07/31/2023 9:55 AM Age: 78 years old Clinical indication: Other: Weakness TECHNIQUE: Imaging protocol: Radiologic exam of the chest. Views: 1 view. COMPARISON: CR XR chest 1V portable [id number] 05/26/2022 7:34 AM FINDINGS: Lungs: Unremarkable. No consolidation. Pleural spaces: Unremarkable. No pleural effusion. No pneumothorax. Heart/Mediastinum: Unremarkable. No cardiomegaly. Bones/joints: No acute findings. XR/XR chest 1V portable [id number] IMPRESSION: No acute findings.
--- NOTE | 2023-07-31 09:45 | ECG_ITS ---
[facility] Test Date: 2023-07-31 Pat Name: Michael Herrera Department: Room: Gender: Male Accounting Assistant: : 1945 Requested By: Neida Dotson Order Number: [id number] Fierro MD: Kody Galindo M.D. Measurements Intervals Shaw Rate: 110 P: 0 MT: 0 QRS: 25 QRSD: 93 T: 79 QT: 354 QTc: 479 Interpretive Statements ATRIAL FIBRILLATION WITH RAPID VENTRICULAR RESPONSE ABNORMAL RHYTHM ECG Compared to ECG 05/26/2022 09:25:44 Sinus rhythm no longer present Myocardial infarct finding no longer present Electronically Signed On 07-31-2023 23:03:09 CDT by Kody Galindo M.D. [id number]
--- NOTE | 2023-07-31 09:47 | ED_ITS ---
HPI - Nausea/Vomiting/Diarrhea 2 General: Chief complaint: Nausea/Vomiting/Diarrhea Stated complaint: N/V Time Seen by Provider: 07/31/23 09:38 Source: patient and EMS Mode of arrival: EMS Limitations: no limitations History of Present Illness: Patient is a 78-year-old male here via EMS with complaints of nausea, vomiting, diarrhea over the past 8 days. EMS states he has had approximately 3 episodes of diarrhea daily since onset although states today it has seemed to stop and has not had any stools thus far. Patient tells me he is not actively vomiting but more so dry heaving and will have a small amount of acid reflux that he will then swallow. He does complain of abdominal pain when asked. He has not been running fevers. He lives alone but states he has been able to care for himself however the weakness that has developed following his illness is the main reason that he contacted EMS. He has no complaints of shortness of breath, chest pain, or difficulty breathing. He does have a history of COPD and atrial fibrillation. Patient currently has a chronic indwelling [place] catheter. He has not had any issues with this. Urine in his bag upon arrival appears clear. MD elicited complaint: nausea, vomiting, diarrhea and abdominal pain Onset (ago): day(s) Description of diarrhea: watery Associated nausea: Yes Associated abdominal pain: Yes Location of pain: Diffuse Radiation: diffuse Pain consistency: intermittent Severity: moderate Exacerbating factors: eating Relieving factors: none Associated symtoms: Reports nausea and weakness; Denies chest pain, dizziness, fatigue, headache(s) or malaise Review of Systems 2 Const: Reports: other (generalized weakness); Denies: fever(s), chills, body aches, fatigue or malaise Card: Reports: irregular heart rhythm (chronic atrial fib); Denies: chest pain Resp: Reports: productive cough (chronic smoker's cough ); Denies: hemoptysis or chest congestion GI: Reports: abdominal pain, nausea and diarrhea; Denies: hematemesis : Denies: flank pain or hematuria Musc: Denies: neck pain, back pain, extremity pain or joint pain Skin/Breast: Denies: rash Neuro: Denies: headache(s), numbness in extremities, weakness in extremities, sensory changes or dizziness PFS ED 2 PFSH: Medical History Depression Atrial fibrillation Self-catheterizes urinary bladder Urinary retention CVA (cerebral vascular accident) Spinal stenosis, site unspecified Chronic neck pain Chronic back pain Cystitis with hematuria Multilevel degenerative disc disease Compression fracture of L1 lumbar vertebra Macrocytic anemia Ascending aortic aneurysm GERD (gastroesophageal reflux disease) Bradycardia HTN (hypertension) COPD (chronic obstructive pulmonary disease) Surgical History H/O shoulder surgery History of cystoscopy in 01/2019 -chronic inflammatory changes, bladder diverticuli S/P ureteral stent placement Hx laparoscopic cholecystectomy H/O laminectomy L5-S1 HEMILANIECTOMIES H/O spinal fusion C5-C6 Family History Father CAD (coronary artery disease) Social History Smoking and tobacco/nicotine status: current every day tobacco/nicotine user cigarettes Packs smoked per day: 1 Years cigarettes smoked: 60 Quit status (tobacco/nicotine): not considering quitting Second hand smoke exposure: Yes Alcohol intake: never Substance/Drug Use: never Caregiver/support person: Yes Lives independently: Yes Household members: none Marital status: service: Yes Current occupational status: disabled Do you think of yourself as: Straight/Heterosexual Current gender identity: Male Physical Exam 2 Const: COMMON NORMALS: no acute distress, patient oriented x3, no limitations and alert GENERAL APPEARANCE: cooperative ORIENTATION/CONSCIOUSNESS: Yes awake, Yes oriented to person, Yes oriented to place and Yes oriented to time HENMT: COMMON NORMALS: normocephalic and atraumatic HEAD & SCALP: normal to inspection, normocephalic and atraumatic FACE & SINUS: normal facial exam Neck/C-Spine: COMMON NORMALS: no JVD GENERAL: Yes normal visual inspection Resp: COMMON NORMALS: normal respiratory effort Cardio: COMMON NORMALS: no JVD RATE: tachycardic (anywhere from 90s-120s with his atrial fib) RHYTHM: abnormal rhythm irregularly irregular GI: COMMON NORMALS: Normal to inspection, nondistended, normoactive bowel sounds present, Soft to palpation, No hepatosplenomegaly present and no masses INSPECTION: Yes normal to inspection PALPATION: Yes Soft to palpation, Yes Tenderness to palpation present (GI) (diffusely) and Yes No hepatosplenomegaly present : COMMON NORMALS: Yes no CVA tenderness BLADDER/KIDNEY EXAM: Yes no CVA tenderness Back/Pelvis: COMMON NORMALS: no CVA tenderness and thoracic and lumbar spine normal to inspection Extremity: NARRATIVE EXTREMITY EXAM: mild edema bilaterally to dorsal feet GENERAL: Yes normal exam except as noted Neuro: COMMON NORMALS: patient oriented x3, moves all extremities, no focal motor deficits and no sensory deficits noted SENSORIUM/ORIENTATION: Yes alert, Yes oriented to person, Yes oriented to place and Yes oriented to time Skin: COMMON NORMALS: no rashes or lesions noted GENERAL SKIN EXAM: no rashes or lesions noted Course 2 Vital Signs: Vital signs: Vital Signs Temperature 98.0 F 07/31/23 09:38 Pulse Rate 62 07/31/23 11:27 Respiratory Rate 16 07/31/23 11:27 Blood Pressure 135/86 07/31/23 11:27 Pulse Oximetry 95 07/31/23 11:27 Oxygen Delivery Me thod Room Air 07/31/23 11:27 MDM - Nausea/Vomiting/Diarrhea Medical Decision Making Patient appears in no acute distress. He initially arrives slightly hypotensive. He has chronic atrial fibrillation. Rate was increased upon arrival as well. His blood pressure and heart rate responded well to IV fluids. Upon reexamination his pulse is in the 60s and his blood pressure is 135/86. Patient feels better after IV fluids. He has not had any diarrhea stools today. No vomiting. His CT scan is essentially unremarkable. Patient feels comfortable going home at this time. His blood work overall is nonactionable. He has chronic anemia. Recommend follow-up with his primary care provider later this week if needed. Return ED precautions given. Medical Records I reviewed the patient's medical records. Lab Data I reviewed the patient's lab results. 07/31/23 09:54 07/31/23 09:54 Radiology Impressions Abdomen/Pelvis CT 07/31/23 09:45 IMPRESSION: 1. No acute abdominal or pelvic abnormalities. 2. There is increased air and fecal material throughout the colon. Change in caliber of the descending colon but no mass. 3. Bilateral renal cysts. 4. Prior cholecystectomy. 5. Moderate atherosclerosis aorta. 6. No adenopathy or ascites. 7. Suprapubic catheter. Chest X-Ray 07/31/23 09:45 IMPRESSION: No acute findings. Laboratory Results WBC 12.81 10^3/uL (3.29-11.43) H 07/31/23 09:54 RBC 3.27 10^6/uL (3.85-5.65) L 07/31/23 09:54 Hgb 11.20 g/dL (11.27-16.99) L 07/31/23 09:54 Hct 34.1 % (37-53) L 07/31/23 09:54 MCV 104.3 fl (82-101) H 07/31/23 09:54 MCH 34.3 pg (27-33) H 07/31/23 09:54 MCHC 32.8 g/dL (30-55) 07/31/23 09:54 RDW 13.4 % (12.1-15.1) 07/31/23 09:54 Plt Count 302 10^3/cmm (157-399) 07/31/23 09:54 MPV 10.4 fL (7.4-10.4) 07/31/23 09:54 Neut % (Auto) 78.5 % 07/31/23 09:54 Lymph % (Auto) 12.7 % 07/31/23 09:54 [place] % (Auto) 6.5 % 07/31/23 09:54 Eos % (Auto) 1.8 % 07/31/23 09:54 Baso % (Auto) 0.2 % 07/31/23 09:54 Neut # (Auto) 10.05 10^3/uL (1.8-7.7) H 07/31/23 09:54 Lymph # (Auto) 1.6 10^3/uL (0.8-4.8) 07/31/23 09:54 [place] # (Auto) 0.8 10^3/uL (0.2-0.9) 07/31/23 09:54 Eos # (Auto) 0.2 10^3/uL (0.0-0.8) 07/31/23 09:54 Baso # (Auto) 0.0 10^3/uL (0.0-0.1) 07/31/23 09:54 Nucleated RBC % (auto) 0 % 07/31/23 09:54 Nucleated RBCs # 0.0 /100WBC 07/31/23 09:54 Sodium 143 mmol/L (136-145) 07/31/23 09:54 Potassium 4.2 mmol/L (3.5-5.1) 07/31/23 09:54 Chloride 108 mmol/L (98-107) H 07/31/23 09:54 Carbon Dioxide 26 mmol/L (22-29) 07/31/23 09:54 Anion Gap 13.2 (5-19) 07/31/23 09:54 BUN 14 mg/dL (8-23) 07/31/23 09:54 Creatinine 0.8 mg/dL (0.7-1.2) 07/31/23 09:54 GFR Calculation Not Reportable 07/31/23 09:54 Glucose 103 mg/dL (65-115) 07/31/23 09:54 Calculated Osmolality 297 mOsm/kg (285-295) H 07/31/23 09:54 Lactic Acid 1.1 mmol/L (0.5-2.2) 07/31/23 09:54 Calcium 8.6 mg/dL (8.5-10.5) 07/31/23 09:54 Total Bilirubin 0.2 mg/dL (0.15-1.2) 07/31/23 09:54 AST 9 U/L (0-40) 07/31/23 09:54 ALT 6 U/L (0-41) 07/31/23 09:54 Alkaline Phosphatase 72 U/L (40-130) 07/31/23 09:54 Total Protein 6.3 g/dL (6.6-8.7) L 07/31/23 09:54 Albumin 3.3 g/dL (3.5-5.2) L 07/31/23 09:54 Globulin 3.0 g/dL (1.3-4.6) 07/31/23 09:54 Lipase 17 U/L (13-60) 07/31/23 09:54 Urine Color Light yellow (Yellow) 07/31/23 10:10 Urine Appearance Clear (CLEAR) 07/31/23 10:10 Urine pH 7 (5-7) 07/31/23 10:10 Ur Specific [place] 1.010 (1.005-1.030) 07/31/23 10:10 Urine Protein Neg (Negative) 07/31/23 10:10 Urine Glucose (UA) Norm (Normal) 07/31/23 10:10 Urine Ketones Negative (Negative) 07/31/23 10:10 Urine Blood 2+ (Negative) H 07/31/23 10:10 Urine Nitrate Negative (Negative) 07/31/23 10:10 Urine Bilirubin Neg (Negative) 07/31/23 10:10 Urine Urobilinogen Norm mg/dL (Negative) 07/31/23 10:10 Ur Leukocyte Esterase Negative (Negative) 07/31/23 10:10 Urine RBC 5-10 /hpf (0-2) H 07/31/23 10:10 Urine WBC None /hpf (0-5) 07/31/23 10:10 Ur Squamous Epith Cells Rare /hpf (0-5) 07/31/23 10:10 Amorphous Sediment Not Reportable 07/31/23 10:10 Urine Bacteria None /hpf (NONE) 07/31/23 10:10 Urine Mucus None /hpf 07/31/23 10:10 Urine Yeast 2+ /hpf H 07/31/23 10:10 All radiology interpretation(s) finalized by discharge Discharge Plan Discharge Patient Disposition: Home Clinical Impression: Weakness Diarrhea Qualifiers: Diarrhea type: unspecified type Qualified Code(s): R19.7 - Diarrhea, unspecified Condition: Stable Prescriptions: No Action methenamine hippurate 1 gram tablet 1 gm PO BID Qty: 60 12RF Rx Instructions: take with 1000mg Vitamin C Asmanex HFA 100 mcg/actuation HFA aerosol inhaler 2 puff inhalation BID 30 Days Qty: 13 4RF Stiolto Respimat 2.5-2.5 mcg/actuation mist 2 puff inhalation DAILY bisacodyl 5 mg tablet 5 mg PO DAILY PRN (Reason: constipation) Qty: 30 0RF omeprazole 20 mg Capsule,Delayed Release(Dr/Ec) 20 mg PO QAM fluoxetine [Prozac] 20 mg Capsule 60 mg PO DAILY sennosides-docusate sodium [Senna-S] 8.6-50 mg Tablet 2 tab PO DAILY PRN (Reason: Constipation) ascorbic acid (vitamin C) [Vitamin C] 500 mg Tablet 1,000 mg PO BID guaifenesin 400 mg Tablet 400 mg PO TID PRN (Reason: Congestion) Ensure Plus 0.05-1.5 gram-kcal/mL Liquid 1 ea PO TID divalproex [Depakote ER] 500 mg Tablet Extended Release 24 Hr 500 mg PO BEDTIME albuterol sulfate [ProAir HFA] 90 mcg/actuation Hfa Aerosol Inhaler 2 puff INHALATION Q4H PRN (Reason: Shortness Of Breath) potassium chloride 20 mEq tablet,ER particles/crystals 10 meq PO QID metoprolol tartrate 25 mg tablet 25 mg PO BID Qty: 60 1RF ferrous gluconate 324 mg (38 mg iron) Tablet 324 mg PO DAILY ipratropium-albuterol 0.5 mg-3 mg(2.5 mg base)/3 mL solution for nebulization 3 ml inhalation QID PRN (Reason: shortness of breath) acetaminophen 500 mg tablet 500 - 1,000 mg PO QID PRN (Reason: Pain) hydrocortisone acetate 1 % cream 1 applic TOPICAL TID PRN (Reason: SKIN IRRITAION) miconazole nitrate 2 % Aerosol Powder 1 spray TOPICAL TID PRN (Reason: infection) torsemide 10 mg Tablet 10 mg PO DAILY fluticasone propionate [Flonase] 50 mcg/actuation [place],Suspension 2 spray INTRANASAL DAILY PRN (Reason: ALLERGIES) Rx Instructions: administer into each nostril cholecalciferol (vitamin D3) [Vitamin D3] 25 mcg (1,000 unit) Tablet 25 mcg PO DAILY menthol-zinc oxide [Calmoseptine] 0.44-20.6 % Ointment 1 applic TOPICAL DAILY PRN (Reason: skin protection) Discharge Orders: Discharge ED (Routine); Ordered 07/31/23 Ordered By: Neida Dotson Referrals: Janet Martinez FNP [Primary Care Provider] - Activity Restrictions/Additional Instructions: As we discussed please follow-up with your primary care provider later this week if symptoms do not seem to be improving. You may return to the emergency department for worsening diarrhea, repetitive episodes of vomiting, worsening weakness, severe abdominal pain, fevers, generally feeling worse or unwell, or any other concerns you may have. Hope you begin to feel better soon. Coding Level of Care Code ED Terminal System Operator for Azam Adamson
[2023-07-31 10:04] LABS: Basophils % 0.2 %; Eosinophils # 0.2 10^3/uL (0.0-0.8); Eosinophils % 1.8 %; Hematocrit 34.1 % (37-53); Lymphocytes # 1.6 10^3/uL (0.8-4.8); Lymphocytes % 12.7 %; Mean Corpuscular HGB Conc 32.8 g/dL (30-55); Mean Corpuscular Hemoglobin 34.3 pg (27-33); Mean Corpuscular Volume 104.3 fl (82-101); Mean Platelet Volume 10.4 fL (7.4-10.4); Monocytes # 0.8 10^3/uL (0.2-0.9); Monocytes % 6.5 %; Neutrophils # 10.05 10^3/uL (1.8-7.7); Neutrophils % 78.5 %; Nucleated Red Blood Cells % 0 %; Platelet Count 302 10^3/cmm (157-399); Red Blood Count 3.27 10^6/uL (3.85-5.65); Red Cell Distribution Width 13.4 % (12.1-15.1); White Blood Count 12.81 10^3/uL (3.29-11.43)
[2023-07-31] MEDS: sodium chloride 0.9% 500 ML IV (10:12)
[2023-07-31 10:13] VITALS: BP 112/81; PULSE 93; RESP 18; O2SAT 95
[2023-07-31 10:22] LABS: Alanine Aminotransferase 6 U/L (0-41); Albumin Level 3.3 g/dL (3.5-5.2); Alkaline Phosphatase 72 U/L (40-130); Anion Gap 13.2 (5-19); Aspartate Amino Transferase 9 U/L (0-40); Blood Urea Nitrogen 14 mg/dL (8-23); Calcium 8.6 mg/dL (8.5-10.5); Carbon Dioxide 26 mmol/L (22-29); Chloride 108 mmol/L (98-107); Creatinine Clr Calc Pharmacy 72.3252; Glucose 103 mg/dL (65-115); Lactic Sepsis W/Reflex 1.1 mmol/L (0.5-2.2); Lipase 17 U/L (13-60); Osmolality Calculated 297 mOsm/kg (285-295); Potassium 4.2 mmol/L (3.5-5.1); Sodium 143 mmol/L (136-145); Total Bilirubin 0.2 mg/dL (0.15-1.2); Total Protein 6.3 g/dL (6.6-8.7)
[2023-07-31 10:34] LABS: Urine Color Light yellow (Yellow)
[2023-07-31 10:35] LABS: Add Urine Microscopic? YES; Bilirubin Urine Neg (Negative); Blood Urine 2+ (Negative); Glucose Urine UA Norm (Normal); Ketones Urine Negative (Negative); Leukocyte Esterase Urine Negative (Negative); Nitrate Urine Negative (Negative); Protein Urine Neg (Negative); Urine Appearance Clear (CLEAR); Urobilinogen Urine Norm (Negative); pH Urine 7 (5-7)
--- NOTE | 2023-07-31 10:40 | PC.PHAR ---
PT IS [facility]. PT DOES KNOW HIS MEDICATIONS AND CAN GO OVER THEM WITH YOU.
[2023-07-31 10:43] VITALS: BP 93/67; PULSE 100; RESP 18; O2SAT 96
[2023-07-31 10:47] LABS: Add Urine Culture? Yes; Squamous Epithelial Cell Urine RARE /hpf (0-5)
[2023-07-31] MEDS: iohexol 350 mg/mL 500 mL Btl (per mL) IV (11:01)
[2023-07-31 11:27] VITALS: BP 135/86; PULSE 62; RESP 16; O2SAT 95
[2023-07-31 11:47] VITALS: BP 139/87; PULSE 66; RESP 20; O2SAT 94
[2023-07-31 12:06] VITALS: BP 144/75; PULSE 67; O2SAT 95
== END 2023-07-31 12:07 | disposition home or self-care (01) ==
PROVIDERS: Emergency Provider Physician Assistant; PCP Nurse Practitioner Family
DX: R53.1 Weakness (principal); R19.7 Diarrhea, unspecified; F17.210 Nicotine dependence, cigarettes, uncomplicated; Z86.73 Personal history of transient ischemic attack (TIA), and cerebral infarction without residual deficits; I10 Essential (primary) hypertension; J44.9 Chronic obstructive pulmonary disease, unspecified
CPT/HCPCS: 36415; 71045; 74177; 80053; 81001; 83605; 83690; 85025; 87086; 93005; 96360; 96361; 99285; J7040; Q9967

== ENCOUNTER 2023-11-14 11:45 | Emergency (ER) | payer OTHER, MEDICARE, SELFPAY ==
--- NOTE | 2023-11-14 11:52 | XR_ITS ---
WS: [id number] RIGHT HIP HISTORY: pain COMPARISON: CT 07/31/2023 Right hip: No acute fracture or dislocation. Mild narrowing of the hip joint. Subcortical irregularit y over the femoral head. Mild sclerosis on the superior acetabulum. RIGHT pubic rami intact. Vascular calcifications femoral artery. XR/XR hip RT 2-3V wo/w pel* [id number] IMPRESSION: 1. No hip fracture. 2. Mild osteoarthritis RIGHT hip. 3. Extensive femoral artery calcifications.
--- NOTE | 2023-11-14 11:52 | XR_ITS ---
WS: [id number] LUMBAR SPINE: 3 VIEWS TECHNIQUE: AP, lateral and L5-S1 spot. HISTORY: back pain COMPARISON: CT 07/31/2023 Straightening of the normal lumbar lordosis. Mild anterior wedging of L1 is similar to the prior stud y. Hypertrophic osteophyte formation at all levels. Advanced degenerative disc space narrowing at L4- 5 and L5-S1. No acute fractures. Bones are osteopenic. Sacrum and transverse processes are difficult to visualize due to the osteopenia. Extensive atherosclerotic plaque within the aorta. XR/XR lumbar spine 2-3V* [id number] IMPRESSION: 1. No acute fracture in the lumbar spine or sacrum noted radiographically. 2. Mild anterior wedging of L1 is stable and chronic.
--- NOTE | 2023-11-14 11:58 | W.ED.GENADLT ---
HPI - General Adult General: Chief complaint: Extremity Injury, Lower Stated complaint: Rt leg numbness Time Seen by Provider: 11/14/23 11:48 Source: patient and EMS Mode of arrival: EMS Limitations: no limitations History of Present Illness: 78-year-old male states he has history of being wheelchair-bound from a previous back surgery has chronic weakness and numbness in his legs he states that he had some increased numbness to his right leg has had some very mild low back pain he rates 1 out of 10 in nature currently. He has chronic indwelling [place]. Patient is resting comfortably here in the bed. Associated symptoms: Deny chest pain, dyspnea, headache(s), nausea, rash or vomiting Related Data Home Medications Medication Instructions Recorded Confirmed fluoxetine 20 mg capsule (Prozac) 60 mg PO DAILY 03/26/19 07/31/23 omeprazole 20 mg capsule,delayed 20 mg PO QAM 03/26/19 07/31/23 release ascorbic acid (vitamin C) 500 mg 1,000 mg PO BID 09/30/19 07/31/23 tablet (Vitamin C) food supplemt, lactose-reduced 1 ea PO TID 09/30/19 07/31/23 0.05 gram-1.5 kcal/mL oral liquid (Ensure Plus) guaifenesin 400 mg tablet 400 mg PO TID PRN Congestion 09/30/19 07/31/23 sennosides 8.6 mg-docusate sodium 2 tab PO DAILY PRN Constipation 09/30/19 07/31/23 50 mg tablet (Senna-S) tiotropium 2.5 mcg-olodaterol 2.5 2 puff inhalation DAILY 04/13/20 07/31/23 mcg/actuation mist for inhalation (Stiolto Respimat) albuterol sulfate 90 mcg/actuation 2 puff inhalation Q4H PRN 11/24/20 07/31/23 aerosol inhaler (ProAir HFA) Shortness Of Breath divalproex 500 mg tablet,extended 500 mg PO BEDTIME 11/24/20 07/31/23 release 24 hr (Depakote ER) acetaminophen 500 mg tablet 500 - 1,000 mg PO QID PRN Pain 05/19/22 07/31/23 cholecalciferol (vitamin D3) 25 25 mcg PO DAILY 05/19/22 07/31/23 mcg (1,000 unit) tablet (Vitamin D3) ferrous gluconate 324 mg (38 mg 324 mg PO DAILY 05/19/22 07/31/23 iron) tablet fluticasone propionate 50 2 spray intranasal DAILY PRN 05/19/22 07/31/23 mcg/actuation nasal ALLERGIES spray,suspension hydrocortisone acetate 1 % topical 1 applic topical TID PRN SKIN 05/19/22 07/31/23 cream IRRITAION ipratropium 0.5 mg-albuterol 3 mg 3 ml inhalation QID PRN shortness 05/19/22 07/31/23 (2.5 mg base)/3 mL nebulization of breath soln menthol 0.44 %-zinc oxide 20.6 % 1 applic topical DAILY PRN skin 05/19/22 07/31/23 topical ointment (Calmoseptine) protection miconazole nitrate 2 % topical 1 spray topical TID PRN infection 05/19/22 07/31/23 spray powder torsemide 10 mg tablet 10 mg PO DAILY 05/19/22 07/31/23 potassium chloride 20 mEq 10 meq PO QID 05/24/22 07/31/23 tablet,extended release(part/cryst) Previous Rx's Medication Instructions Recorded methenamine hippurate 1 gram tablet 1 gm PO BID #60 tabs 08/28/19 bisacodyl 5 mg tablet 5 mg PO DAILY PRN constipation #30 08/29/19 tabs mometasone 100 mcg/actuation HFA 2 puff inhalation BID 30 days #13 04/13/20 aerosol inhaler (Asmanex HFA) grams metoprolol tartrate 25 mg tablet 25 mg PO BID #60 tabs 05/26/22 Allergies Allergy/AdvReac Type Severity Reaction Status Date / Time nicotine Allergy Mild SKIN Verified 07/31/23 09:48 REACTION hydrocodone Allergy Unknown Verified 07/31/23 09:48 propoxyphene [From Darvon] Allergy Unknown Verified 07/31/23 09:48 Review of Systems Const: Denies: fever(s), chills, body aches or change in appetite ENMT: Denies: throat pain or dental pain Card: Denies: chest pain Resp: Denies: dyspnea GI: Denies: abdominal pain, nausea, vomiting or diarrhea Musc: Denies: neck pain or back pain Skin/Breast: Denies: rash Neuro: Reports: numbness in extremities; Denies: headache(s) PFSH ED PFSH: Medical History Depression Atrial fibrillation Self-catheterizes urinary bladder Urinary retention CVA (cerebral vascular accident) Spinal stenosis, site unspecified Chronic neck pain Chronic back pain Cystitis with hematuria Multilevel degenerative disc disease Compression fracture of L1 lumbar vertebra Macrocytic anemia Ascending aortic aneurysm GERD (gastroesophageal reflux disease) Bradycardia HTN (hypertension) COPD (chronic obstructive pulmonary disease) Surgical History H/O shoulder surgery History of cystoscopy in 01/2019 -chronic inflammatory changes, bladder diverticuli S/P ureteral stent placement Hx laparoscopic cholecystectomy H/O laminectomy L5-S1 HEMILANIECTOMIES H/O spinal fusion C5-C6 Family History Father CAD (coronary artery disease) Social History Smoking and tobacco/nicotine status: current every day tobacco/nicotine user cigarettes Packs smoked per day: 1 Years cigarettes smoked: 60 Quit status (tobacco/nicotine): not considering quitting Second hand smoke exposure: Yes Alcohol intake: never Substance/Drug Use: never Caregiver/support person: Yes Lives independently: Yes Household members: none Marital status: service: Yes Current occupational status: disabled Do you think of yourself as: Straight/Heterosexual Current gender identity: Male Physical Exam Const: COMMON NORMALS: no acute distress, patient oriented x3 and healthy appearing HENMT: COMMON NORMALS: normocephalic and atraumatic HEAD & SCALP: normocephalic and atraumatic Neck/C-Spine: COMMON NORMALS: full ROM and supple Chest: COMMONS NORMALS: normal inspection of the chest Resp: COMMON NORMALS: normal respiratory effort, No retractions, No use of accessory muscles and clear to auscultation bilaterally AUSCULTATION: clear to auscultation bilaterally Cardio: COMMON NORMALS: regular rate, regular rhythm and No murmurs present (Cardio) RATE: regular rate RHYTHM: regular rhythm GI: COMMON NORMALS: Normal to inspection, nondistended, normoactive bowel sounds present, Soft to palpation, non-tender and no masses PALPATION: Yes Soft to palpation Extremity: NARRATIVE EXTREMITY EXAM: Chronic edema noted bilateral lower extremities pulses palpable in both extremities patient has decreased strength at baseline no new weakness no notable sensory deficits to bilateral legs Neuro: COMMON NORMALS: patient oriented x3, moves all extremities and no focal motor deficits Psych: COMMON NORMALS: mental status grossly normal, Normal thought process present and cooperative THOUGHT PROCESS: Normal thought process present Skin: COMMON NORMALS: no rashes or lesions noted and no wounds GENERAL SKIN EXAM: no rashes or lesions noted Course Vital Signs: Vital signs: Vital Signs Temperature 97.6 F 11/14/23 11:59 Pulse Rate 57 L 11/14/23 12:25 Respiratory Rate 14 11/14/23 12:25 Blood Pressure 172/90 11/14/23 12:25 Pulse Oximetry 97 11/14/23 12:25 Oxygen Delivery Me thod Room Air 11/14/23 12:25 MDM - General Adult Medical Decision Making Patient presents for some paresthesias in his right leg had chronic paresthesias he has had no pain here imaging is normal he has no signs of cord compression he has distal pulses intact he is stable for discharge at this time Medical Records I reviewed the patient's medical records. Lab Data I reviewed the patient's lab results. 11/14/23 12:03 11/14/23 12:03 Radiology Impressions Hip/Pelvis X-Ray 11/14/23 11:52 IMPRESSION: 1. No hip fracture. 2. Mild osteoarthritis RIGHT hip. 3. Extensive femoral artery calcifications. Lumbar Spine X-Ray 11/14/23 11:52 IMPRESSION: 1. No acute fracture in the lumbar spine or sacrum noted radiographically. 2. Mild anterior wedging of L1 is stable and chronic. Laboratory Results WBC 11.75 10^3/uL (3.29-11.43) H 11/14/23 12:03 RBC 3.76 10^6/uL (3.85-5.65) L 11/14/23 12:03 Hgb 12.70 g/dL (11.27-16.99) 11/14/23 12:03 Hct 39.0 % (37-53) 11/14/23 12:03 MCV 103.7 fl (82-101) H 11/14/23 12:03 MCH 33.8 pg (27-33) H 11/14/23 12:03 MCHC 32.6 g/dL (30-55) 11/14/23 12:03 RDW 14.3 % (12.1-15.1) 11/14/23 12:03 Plt Count 298 10^3/cmm (157-399) 11/14/23 12:03 MPV 10.6 fL (7.4-10.4) H 11/14/23 12:03 Neut % (Auto) 69.9 % 11/14/23 12:03 Lymph % (Auto) 16.3 % 11/14/23 12:03 [place] % (Auto) 8.0 % 11/14/23 12:03 Eos % (Auto) 5.2 % 11/14/23 12:03 Baso % (Auto) 0.3 % 11/14/23 12:03 Neut # (Auto) 8.21 10^3/uL (1.8-7.7) H 11/14/23 12:03 Lymph # (Auto) 1.9 10^3/uL (0.8-4.8) 11/14/23 12:03 [place] # (Auto) 0.9 10^3/uL (0.2-0.9) 11/14/23 12:03 Eos # (Auto) 0.6 10^3/uL (0.0-0.8) 11/14/23 12:03 Baso # (Auto) 0.0 10^3/uL (0.0-0.1) 11/14/23 12:03 Nucleated RBC % (auto) 0 % 11/14/23 12:03 Nucleated RBCs # 0.0 /100WBC 11/14/23 12:03 Sodium 136 mmol/L (136-145) 11/14/23 12:03 Potassium 4.2 mmol/L (3.5-5.1) 11/14/23 12:03 Chloride 102 mmol/L (98-107) 11/14/23 12:03 Carbon Dioxide 20 mmol/L (22-29) L 11/14/23 12:03 Anion Gap 18.2 (5-19) 11/14/23 12:03 BUN 9 mg/dL (8-23) 11/14/23 12:03 Creatinine 1.1 mg/dL (0.7-1.2) 11/14/23 12:03 GFR Calculation Not Reportable 11/14/23 12:03 Glucose 97 mg/dL (65-115) 11/14/23 12:03 Calculated Osmolality 281 mOsm/kg (285-295) L 11/14/23 12:03 Calcium 9.2 mg/dL (8.5-10.5) 11/14/23 12:03 All radiology interpretation(s) finalized by discharge Discharge Plan Discharge Patient Disposition: Home Clinical Impression: Leg numbness Condition: Stable Prescriptions: No Action methenamine hippurate 1 gram tablet 1 gm PO BID Qty: 60 12RF Rx Instructions: take with 1000mg Vitamin C Asmanex HFA 100 mcg/actuation HFA aerosol inhaler 2 puff inhalation BID 30 Days Qty: 13 4RF Stiolto Respimat 2.5-2.5 mcg/actuation mist 2 puff inhalation DAILY bisacodyl 5 mg tablet 5 mg PO DAILY PRN (Reason: constipation) Qty: 30 0RF omeprazole 20 mg Capsule,Delayed Release(Dr/Ec) 20 mg PO QAM fluoxetine [Prozac] 20 mg Capsule 60 mg PO DAILY sennosides-docusate sodium [Senna-S] 8.6-50 mg Tablet 2 tab PO DAILY PRN (Reason: Constipation) ascorbic acid (vitamin C) [Vitamin C] 500 mg Tablet 1,000 mg PO BID guaifenesin 400 mg Tablet 400 mg PO TID PRN (Reason: Congestion) Ensure Plus 0.05-1.5 gram-kcal/mL Liquid 1 ea PO TID divalproex [Depakote ER] 500 mg Tablet Extended Release 24 Hr 500 mg PO BEDTIME albuterol sulfate [ProAir HFA] 90 mcg/actuation Hfa Aerosol Inhaler 2 puff INHALATION Q4H PRN (Reason: Shortness Of Breath) potassium chloride 20 mEq tablet,ER particles/crystals 10 meq PO QID metoprolol tartrate 25 mg tablet 25 mg PO BID Qty: 60 1RF ferrous gluconate 324 mg (38 mg iron) Tablet 324 mg PO DAILY ipratropium-albuterol 0.5 mg-3 mg(2.5 mg base)/3 mL solution for nebulization 3 ml inhalation QID PRN (Reason: shortness of breath) acetaminophen 500 mg tablet 500 - 1,000 mg PO QID PRN (Reason: Pain) hydrocortisone acetate 1 % cream 1 applic TOPICAL TID PRN (Reason: SKIN IRRITAION) miconazole nitrate 2 % Aerosol Powder 1 spray TOPICAL TID PRN (Reason: infection) torsemide 10 mg Tablet 10 mg PO DAILY fluticasone propionate [Flonase] 50 mcg/actuation [place],Suspension 2 spray INTRANASAL DAILY PRN (Reason: ALLERGIES) Rx Instructions: administer into each nostril cholecalciferol (vitamin D3) [Vitamin D3] 25 mcg (1,000 unit) Tablet 25 mcg PO DAILY menthol-zinc oxide [Calmoseptine] 0.44-20.6 % Ointment 1 applic TOPICAL DAILY PRN (Reason: skin protection) Discharge Orders: Discharge ED (Routine); Ordered 11/14/23 Ordered By: Evin Arias Referrals: Janet Martinez, SCHEDULE HANGER [Primary Care Provider] - Discharge Diet: Advance as tolerated Discharge Activity: Resume usual activity Patient Instructions: Paresthesia (ED) Coding Level of Care Code ED Radiology Equipment Servicer for Azam Adamson
[2023-11-14 11:59] VITALS: BP 162/79; PULSE 64; RESP 18; TEMP 36.4; O2SAT 96; BMI 16.3
[2023-11-14 12:25] VITALS: BP 172/90; PULSE 57; RESP 14; O2SAT 97
[2023-11-14 12:30] LABS: Basophils % 0.3 %; Eosinophils # 0.6 10^3/uL (0.0-0.8); Eosinophils % 5.2 %; Lymphocytes # 1.9 10^3/uL (0.8-4.8); Lymphocytes % 16.3 %; Mean Corpuscular HGB Conc 32.6 g/dL (30-55); Mean Corpuscular Hemoglobin 33.8 pg (27-33); Mean Corpuscular Volume 103.7 fl (82-101); Mean Platelet Volume 10.6 fL (7.4-10.4); Monocytes # 0.9 10^3/uL (0.2-0.9); Neutrophils # 8.21 10^3/uL (1.8-7.7); Neutrophils % 69.9 %; Nucleated Red Blood Cells % 0 %; Platelet Count 298 10^3/cmm (157-399); Red Blood Count 3.76 10^6/uL (3.85-5.65); Red Cell Distribution Width 14.3 % (12.1-15.1); White Blood Count 11.75 10^3/uL (3.29-11.43)
[2023-11-14 12:49] LABS: Blood Urea Nitrogen 9 mg/dL (8-23); Calcium 9.2 mg/dL (8.5-10.5); Carbon Dioxide 20 mmol/L (22-29); Chloride 102 mmol/L (98-107); Creatinine Clr Calc Pharmacy 39.8271; Glucose 97 mg/dL (65-115); Osmolality Calculated 281 mOsm/kg (285-295); Sodium 136 mmol/L (136-145)
[2023-11-14 13:20] LABS: Anion Gap 18.2 (5-19); Potassium 4.2 mmol/L (3.5-5.1)
--- NOTE | 2023-11-14 16:39 | PC.NURSE ---
PT requested tylenol for lower back pain. pt denies any other needs at this time
[2023-11-14] MEDS: acetaminophen 500 mg Tablet 1000 MG PO (16:43)
== END 2023-11-14 17:26 | disposition home or self-care (01) ==
PROVIDERS: Emergency Provider Emergency Medicine; PCP Nurse Practitioner Family
DX: R20.0 Anesthesia of skin (principal); F17.210 Nicotine dependence, cigarettes, uncomplicated; Z86.73 Personal history of transient ischemic attack (TIA), and cerebral infarction without residual deficits; I10 Essential (primary) hypertension; J44.9 Chronic obstructive pulmonary disease, unspecified
CPT/HCPCS: 36415; 72100; 73502; 80048; 85025; 99284

== ENCOUNTER 2024-01-04 21:42 | Emergency (ER) | payer OTHER, MEDICARE, SELFPAY ==
[2024-01-04 21:47] VITALS: BP 158/88; PULSE 77; RESP 16; TEMP 36.7; O2SAT 95; BMI 23.8
--- NOTE | 2024-01-04 21:58 | W.ED.GENADLT ---
HPI - General Adult General: Chief complaint: Urogenital-Male Stated complaint: CATH ISSUES Time Seen by Provider: 01/04/24 21:51 History of Present Illness: Presents to the ER with complaints of catheter however the problem is really that he has been on antibiotics for about 3 days and still has a bit of blood in his suprapubic catheter but also he has been leaking what appears to be urine at his penis has irritated his penis and has got a red spot on the head of his penis. Upon review of the records appears to be Augmentin the antibiotic he is on. Related Data Home Medications Medication Instructions Recorded Confirmed fluoxetine 20 mg capsule (Prozac) 60 mg PO DAILY 03/26/19 11/14/23 omeprazole 20 mg capsule,delayed 20 mg PO QAM 03/26/19 11/14/23 release ascorbic acid (vitamin C) 500 mg 1,000 mg PO BID 09/30/19 11/14/23 tablet (Vitamin C) food supplemt, lactose-reduced 1 ea PO TID 09/30/19 11/14/23 0.05 gram-1.5 kcal/mL oral liquid (Ensure Plus) guaifenesin 400 mg tablet 400 mg PO TID PRN Congestion 09/30/19 11/14/23 sennosides 8.6 mg-docusate sodium 2 tab PO DAILY PRN Constipation 09/30/19 11/14/23 50 mg tablet (Senna-S) tiotropium 2.5 mcg-olodaterol 2.5 2 puff inhalation DAILY 04/13/20 11/14/23 mcg/actuation mist for inhalation (Stiolto Respimat) divalproex 500 mg tablet,extended 500 mg PO BEDTIME 11/24/20 11/14/23 release 24 hr (Depakote ER) acetaminophen 500 mg tablet 500 - 1,000 mg PO QID PRN Pain 05/19/22 11/14/23 cholecalciferol (vitamin D3) 25 25 mcg PO DAILY 05/19/22 11/14/23 mcg (1,000 unit) tablet (Vitamin D3) ferrous gluconate 324 mg (38 mg 324 mg PO DAILY 05/19/22 11/14/23 iron) tablet fluticasone propionate 50 2 spray intranasal DAILY PRN 05/19/22 11/14/23 mcg/actuation nasal ALLERGIES spray,suspension hydrocortisone acetate 1 % topical 1 applic topical TID PRN SKIN 05/19/22 11/14/23 cream IRRITAION ipratropium 0.5 mg-albuterol 3 mg 3 ml inhalation QID PRN shortness 05/19/22 11/14/23 (2.5 mg base)/3 mL nebulization of breath soln menthol 0.44 %-zinc oxide 20.6 % 1 applic topical DAILY PRN skin 05/19/22 11/14/23 topical ointment (Calmoseptine) protection miconazole nitrate 2 % topical 1 spray topical TID PRN irritation 05/19/22 11/14/23 spray powder torsemide 10 mg tablet 10 mg PO DAILY 05/19/22 11/14/23 potassium chloride 20 mEq 10 meq PO QID 05/24/22 11/14/23 tablet,extended release(part/cryst) albuterol sulfate 90 mcg/actuation 2 puff inhalation Q4H PRN 11/14/23 11/14/23 aerosol inhaler Shortness Of Breath Previous Rx's Medication Instructions Recorded methenamine hippurate 1 gram tablet 1 gm PO BID #60 tabs 08/28/19 bisacodyl 5 mg tablet 5 mg PO DAILY PRN constipation #30 08/29/19 tabs mometasone 100 mcg/actuation HFA 2 puff inhalation BID 30 days #13 04/13/20 aerosol inhaler (Asmanex HFA) grams metoprolol tartrate 25 mg tablet 25 mg PO BID #60 tabs 05/26/22 Allergies Allergy/AdvReac Type Severity Reaction Status Date / Time nicotine Allergy Mild SKIN Verified 01/04/24 21:47 REACTION hydrocodone Allergy Unknown Verified 01/04/24 21:47 propoxyphene [From Darvon] Allergy Unknown Verified 01/04/24 21:47 Review of Systems General: Reports: 10 or more systems reviewed and unremarkable except in HPI and below PFSH ED PFSH: Medical History Depression Atrial fibrillation Self-catheterizes urinary bladder Urinary retention CVA (cerebral vascular accident) Spinal stenosis, site unspecified Chronic neck pain Chronic back pain Cystitis with hematuria Multilevel degenerative disc disease Compression fracture of L1 lumbar vertebra Macrocytic anemia Ascending aortic aneurysm GERD (gastroesophageal reflux disease) Bradycardia HTN (hypertension) COPD (chronic obstructive pulmonary disease) Surgical History H/O shoulder surgery History of cystoscopy in 01/2019 -chronic inflammatory changes, bladder diverticuli S/P ureteral stent placement Hx laparoscopic cholecystectomy H/O laminectomy L5-S1 HEMILANIECTOMIES H/O spinal fusion C5-C6 Family History Father CAD (coronary artery disease) Social History Smoking and tobacco/nicotine status: current every day tobacco/nicotine user cigarettes Packs smoked per day: 1 Years cigarettes smoked: 60 Quit status (tobacco/nicotine): not considering quitting Second hand smoke exposure: Yes Alcohol intake: never Substance/Drug Use: never Caregiver/support person: Yes Lives independently: Yes Household members: none Marital status: service: Yes Current occupational status: disabled Do you think of yourself as: Straight/Heterosexual Current gender identity: Male Physical Exam Const: COMMON NORMALS: no acute distress, average body habitus, patient oriented x3, no limitations, healthy appearing, alert and well nourished HENMT: COMMON NORMALS: normocephalic, atraumatic, hearing grossly normal bilaterally, external ears normal, Normal external nose present and moist oral mucous membranes HEAD & SCALP: normocephalic and atraumatic NOSE: Normal external nose present EXTERNAL EAR: Yes external ears normal Neck/C-Spine: COMMON NORMALS: full ROM, no lymphadenopathy, supple, no meningeal signs, no JVD and Thyroid normal THYROID: Thyroid normal Chest: COMMONS NORMALS: normal inspection of the chest and normal palpation of entire chest wall Resp: COMMON NORMALS: normal respiratory effort, No retractions, No use of accessory muscles and clear to auscultation bilaterally AUSCULTATION: clear to auscultation bilaterally Cardio: COMMON NORMALS: no JVD, regular rate, regular rhythm, S1 normal heart sound present, S2 normal heart sound present, No gallops present (Cardio), No clicks present (Cardio), No murmurs present (Cardio) and No rub (Cardio) RATE: regular rate RHYTHM: regular rhythm HEART SOUNDS: S1 normal heart sound present and S2 normal heart sound present GI: COMMON NORMALS: Normal to inspection, nondistended, normoactive bowel sounds present, Soft to palpation, non-tender, No hepatosplenomegaly present and no masses PALPATION: Yes Soft to palpation and Yes No hepatosplenomegaly present : OTHER: Uncircumcised penis with clear drainage at the urethra and irritation of the penile head. Neuro: COMMON NORMALS: patient oriented x3 SENSORIUM/ORIENTATION: Yes alert MENINGEAL SIGNS: Yes no meningeal signs Course Vital Signs: Vital signs: Vital Signs Temperature 98.1 F 01/04/24 21:47 Pulse Rate 77 01/04/24 21:47 Respiratory Rate 16 01/04/24 21:47 Blood Pressure 158/88 01/04/24 21:47 Pulse Oximetry 95 01/04/24 21:47 Oxygen Delivery Me thod Room Air 01/04/24 21:47 MDM - General Adult Medical Decision Making UA performed in ER was still showing signs of infection, patient is on Augmentin, taken back to his previous cultures it seems like he has had several different bacteria and several of them were resistant to Augmentin. We will wait for the culture to come back and we will probably change him over from the Augmentin to something else. Medical Records I reviewed the patient's medical records. Lab Data I reviewed the patient's lab results. Laboratory Results Urine Color Yellow (Yellow) 01/04/24 22:08 Urine Appearance Clear (CLEAR) 01/04/24 22:08 Urine pH 6.0 (5-7) 01/04/24 22:08 Ur Specific [place] 1.027 (1.005-1.030) 01/04/24 22:08 Urine Protein Trace (Negative) A 01/04/24 22:08 Urine Glucose (UA) Negative (Normal) 01/04/24 22:08 Urine Ketones Trace (Negative) 01/04/24 22:08 Urine Blood 2+ (Negative) A 01/04/24 22:08 Urine Nitrate Negative (Negative) 01/04/24 22: Urine Bilirubin Negative (Negative) 01/04/24 22:08 Urine Urobilinogen 0.2 mg/dL (Negative) 01/04/24 22:08 Ur Leukocyte Esterase 1+ (Negative) A 01/04/24 22:08 Urine RBC 5-10 /hpf (0-2) H 01/04/24 22:08 Urine WBC 5-10 /hpf (0-5) H 01/04/24 22:08 Ur Squamous Epith Cells 0-5 /hpf (0-5) 01/04/24 22:08 Amorphous Sediment Not Reportable 01/04/24 22:08 Urine Bacteria None seen /hpf (NONE) 01/04/24 22:08 Hyaline Casts 1.65 /lpf 01/04/24 22:08 No radiology studies performed this visit Discharge Plan Discharge Patient Disposition: Home Clinical Impression: Urinary tract infection Qualifiers: Urinary tract infection type: catheter-associated UTI Indwelling urinary catheter type: indwelling urethral catheter Encounter type: initial encounter Qualified Code(s): T83.511A - Infection and inflammatory reaction due to indwelling urethral catheter, initial encounter Condition: Stable Prescriptions: No Action methenamine hippurate 1 gram tablet 1 gm PO BID Qty: 60 12RF Rx Instructions: take with 1000mg Vitamin C Asmanex HFA 100 mcg/actuation HFA aerosol inhaler 2 puff inhalation BID 30 Days Qty: 13 4RF Stiolto Respimat 2.5-2.5 mcg/actuation mist 2 puff inhalation DAILY bisacodyl 5 mg tablet 5 mg PO DAILY PRN (Reason: constipation) Qty: 30 0RF omeprazole 20 mg Capsule,Delayed Release(Dr/Ec) 20 mg PO QAM fluoxetine [Prozac] 20 mg Capsule 60 mg PO DAILY sennosides-docusate sodium [Senna-S] 8.6-50 mg Tablet 2 tab PO DAILY PRN (Reason: Constipation) ascorbic acid (vitamin C) [Vitamin C] 500 mg Tablet 1,000 mg PO BID guaifenesin 400 mg Tablet 400 mg PO TID PRN (Reason: Congestion) Ensure Plus 0.05-1.5 gram-kcal/mL Liquid 1 ea PO TID divalproex [Depakote ER] 500 mg Tablet Extended Release 24 Hr 500 mg PO BEDTIME potassium chloride 20 mEq tablet,ER particles/crystals 10 meq PO QID metoprolol tartrate 25 mg tablet 25 mg PO BID Qty: 60 1RF ferrous gluconate 324 mg (38 mg iron) Tablet 324 mg PO DAILY ipratropium-albuterol 0.5 mg-3 mg(2.5 mg base)/3 mL solution for nebulization 3 ml inhalation QID PRN (Reason: shortness of breath) acetaminophen 500 mg tablet 500 - 1,000 mg PO QID PRN (Reason: Pain) hydrocortisone acetate 1 % cream 1 applic TOPICAL TID PRN (Reason: SKIN IRRITAION) miconazole nitrate 2 % Aerosol Powder 1 spray TOPICAL TID PRN (Reason: irritation) torsemide 10 mg Tablet 10 mg PO DAILY fluticasone propionate [Flonase] 50 mcg/actuation [place],Suspension 2 spray INTRANASAL DAILY PRN (Reason: ALLERGIES) Rx Instructions: administer into each nostril cholecalciferol (vitamin D3) [Vitamin D3] 25 mcg (1,000 unit) Tablet 25 mcg PO DAILY menthol-zinc oxide [Calmoseptine] 0.44-20.6 % Ointment 1 applic TOPICAL DAILY PRN (Reason: skin protection) ProAir HFA 90 mcg/actuation Hfa Aerosol Inhaler 2 puff INHALATION Q4H PRN (Reason: Shortness Of Breath) Discharge Orders: Discharge ED (Routine); Ordered 01/04/24 Ordered By: Freeman Ly Referrals: Janet Martinez FNP [Primary Care Provider] - 1 week Patient Instructions: Urinary Tract Infection in Men (DC) Activity Restrictions/Additional Instructions: Urinalysis showed you may still have urinary tract infection. Will wait for the culture and sensitivity come back to see what bacteria grows out and what antibiotic you should be placed on. You may be getting a call from us in about 3 days to change her antibiotics. Coding Level of Care Code ED In Home Nanny for Azam Adamson
[2024-01-04 22:20] LABS: Bilirubin Urine Negative (Negative); Blood Urine 2+ (Negative); Glucose Urine UA Negative (Normal); Ketones Urine Trace (Negative); Leukocyte Esterase Urine 1+ (Negative); Nitrate Urine Negative (Negative); Protein Urine Trace (Negative); Specific Gravity, Urine 1.027 (1.005-1.030); Urine Appearance Clear (CLEAR); Urine Color Yellow (Yellow); Urobilinogen Urine 0.2 mg/dL (Negative)
[2024-01-04 22:22] LABS: Add Urine Microscopic? YES; Bacteria Urine None Seen /hpf; Hyaline Casts Urine 1.65 /lpf; Squamous Epithelial Cell Urine 0-5 /hpf (0-5); Universal Test for UA Present (0)
[2024-01-04 23:43] VITALS: BP 165/90; PULSE 71; RESP 17; O2SAT 95
--- NOTE | 2024-01-04 23:47 | PC.NURSE ---
Pt given a brief. This RN offered to assist pt, but pt reports being able to do it.
[2024-01-05 01:01] VITALS: BP 168/75; PULSE 73; O2SAT 94
== END 2024-01-05 01:03 | disposition home or self-care (01) ==
PROVIDERS: Emergency Provider Emergency Medicine; PCP Nurse Practitioner Family
DX: T83.511A Infection and inflammatory reaction due to indwelling urethral catheter, initial encounter (principal); F17.210 Nicotine dependence, cigarettes, uncomplicated; J44.9 Chronic obstructive pulmonary disease, unspecified; I10 Essential (primary) hypertension; Z86.73 Personal history of transient ischemic attack (TIA), and cerebral infarction without residual deficits
CPT/HCPCS: 36415; 81001; 99283

== ENCOUNTER 2024-02-03 01:09 | Emergency (ER) | payer OTHER, MEDICARE, SELFPAY ==
[2024-02-03 01:11] VITALS: BP 131/70; PULSE 86; RESP 17; TEMP 36.6; O2SAT 93; BMI 19.5
[2024-02-03 01:57] VITALS: BP 131/70; PULSE 72; RESP 18; O2SAT 93
--- NOTE | 2024-02-03 02:24 | ED_ITS ---
HPI - Abdominal Pain General: Chief Complaint: Abdominal Pain Stated Complaint: ABD PAIN Time Seen by Provider: 02/03/24 01:14 History of Present Illness: 78-year-old male with chronic indwelling Lowery catheter in the suprapubic position. He presents with increasing abdominal pain over the last evening and this morning. He has abdominal distention as well. He feels as if his catheter is not draining appropriately. He has urine leakage around his catheter site. Related Data Home Medications Medication Instructions Recorded Confirmed fluoxetine 20 mg capsule (Prozac) 60 mg PO DAILY 03/26/19 11/14/23 omeprazole 20 mg capsule,delayed 20 mg PO QAM 03/26/19 11/14/23 release ascorbic acid (vitamin C) 500 mg 1,000 mg PO BID 09/30/19 11/14/23 tablet (Vitamin C) food supplemt, lactose-reduced 1 ea PO TID 09/30/19 11/14/23 0.05 gram-1.5 kcal/mL oral liquid (Ensure Plus) guaifenesin 400 mg tablet 400 mg PO TID PRN Congestion 09/30/19 11/14/23 sennosides 8.6 mg-docusate sodium 2 tab PO DAILY PRN Constipation 09/30/19 11/14/23 50 mg tablet (Senna-S) tiotropium 2.5 mcg-olodaterol 2.5 2 puff inhalation DAILY 04/13/20 11/14/23 mcg/actuation mist for inhalation (Stiolto Respimat) divalproex 500 mg tablet,extended 500 mg PO BEDTIME 11/24/20 11/14/23 release 24 hr (Depakote ER) acetaminophen 500 mg tablet 500 - 1,000 mg PO QID PRN Pain 05/19/22 11/14/23 cholecalciferol (vitamin D3) 25 25 mcg PO DAILY 05/19/22 11/14/23 mcg (1,000 unit) tablet (Vitamin D3) ferrous gluconate 324 mg (38 mg 324 mg PO DAILY 05/19/22 11/14/23 iron) tablet fluticasone propionate 50 2 spray intranasal DAILY PRN 05/19/22 11/14/23 mcg/actuation nasal ALLERGIES spray,suspension hydrocortisone acetate 1 % topical 1 applic topical TID PRN SKIN 05/19/22 11/14/23 cream IRRITAION ipratropium 0.5 mg-albuterol 3 mg 3 ml inhalation QID PRN shortness 05/19/22 11/14/23 (2.5 mg base)/3 mL nebulization of breath soln menthol 0.44 %-zinc oxide 20.6 % 1 applic topical DAILY PRN skin 05/19/22 11/14/23 topical ointment (Calmoseptine) protection miconazole nitrate 2 % topical 1 spray topical TID PRN irritation 05/19/22 11/14/23 spray powder torsemide 10 mg tablet 10 mg PO DAILY 05/19/22 11/14/23 potassium chloride 20 mEq 10 meq PO QID 05/24/22 11/14/23 tablet,extended release(part/cryst) albuterol sulfate 90 mcg/actuation 2 puff inhalation Q4H PRN 11/14/23 11/14/23 aerosol inhaler Shortness Of Breath Previous Rx's Medication Instructions Recorded methenamine hippurate 1 gram tablet 1 gm PO BID #60 tabs 08/28/19 bisacodyl 5 mg tablet 5 mg PO DAILY PRN constipation #30 08/29/19 tabs mometasone 100 mcg/actuation HFA 2 puff inhalation BID 30 days #13 04/13/20 aerosol inhaler (Asmanex HFA) grams metoprolol tartrate 25 mg tablet 25 mg PO BID #60 tabs 05/26/22 Allergies Allergy/AdvReac Type Severity Reaction Status Date / Time nicotine Allergy Mild SKIN Verified 02/03/24 01:17 REACTION hydrocodone Allergy Unknown Verified 02/03/24 01:17 propoxyphene [From [facility]von] Allergy Unknown Verified 02/03/24 01:17 PFS ED PFS: Medical History Depression Atrial fibrillation Self-catheterizes urinary bladder Urinary retention CVA (cerebral vascular accident) Spinal stenosis, site unspecified Chronic neck pain Chronic back pain Cystitis with hematuria Multilevel degenerative disc disease Compression fracture of L1 lumbar vertebra Macrocytic anemia Ascending aortic aneurysm GERD (gastroesophageal reflux disease) Bradycardia HTN (hypertension) COPD (chronic obstructive pulmonary disease) Surgical History H/O shoulder surgery History of cystoscopy in 01/2019 -chronic inflammatory changes, bladder diverticuli S/P ureteral stent placement Hx laparoscopic cholecystectomy H/O laminectomy L5-S1 HEMILANIECTOMIES H/O spinal fusion C5-C6 Family History Father CAD (coronary artery disease) Social History Smoking and tobacco/nicotine status: current every day tobacco/nicotine user cigarettes Packs smoked per day: 1 Years cigarettes smoked: 60 Quit status (tobacco/nicotine): not considering quitting Second hand smoke exposure: Yes Alcohol intake: never Substance/Drug Use: never Caregiver/support person: Yes Lives independently: Yes Household members: none Marital status: service: Yes Current occupational status: disabled Do you think of yourself as: Straight/Heterosexual Current gender identity: Male Physical Exam Const: COMMON NORMALS: no acute distress GENERAL APPEARANCE: cooperative; not ill appearing and not frail appearing HENMT: COMMON NORMALS: normocephalic, atraumatic and Normal external nose present HEAD & SCALP: normocephalic and atraumatic FACE & SINUS: normal facial exam and face symmetric NOSE: Normal external nose present Eye: COMMON NORMALS: Equal, round and reactive pupils present and EOMs intact bilaterally PUPIL: Yes Equal, round and reactive pupils present Neck/C-Spine: GENERAL: Yes trachea midline Chest: CHEST: Yes Symmetrical chest wall rise Resp: COMMON NORMALS: normal respiratory effort, No retractions, No use of accessory muscles and clear to auscultation bilaterally AUSCULTATION: clear to auscultation bilaterally Cardio: COMMON NORMALS: regular rate and regular rhythm RATE: regular rate RHYTHM: regular rhythm GI: COMMON NORMALS: Normal to inspection, nondistended, normoactive bowel sounds present : OTHER: Mild lower abdominal/pelvic distention. Suprapubic tenderness present. Urethrostomy site with no swelling, or redness. There is urine draining from around the Lowery catheter at the site. Lowery catheter is in place, but does not appear to be draining appropriately. Extremity: COMMON NORMALS: no pedal edema Neuro: AMRITA COMA SCALE: document GCS findings Amriat coma scale eye opening: Spontaneous Amrita coma scale verbal response: Orientated Amrita coma scale motor response: [place]bey commands [place] coma scale total score: 15 SENSORY EXAM: Yes extremities (intact) Psych: COMMON NORMALS: speech normal SPEECH: Yes normal speech Skin: COMMON NORMALS: no rashes or lesions noted GENERAL SKIN EXAM: no rashes or lesions noted Course Vital Signs: Vital signs: Vital Signs Temperature 97.9 F 02/03/24 01:11 Pulse Rate 71 02/03/24 02:46 Respiratory Rate 18 02/03/24 02:46 Blood Pressure 137/77 02/03/24 02:46 Pulse Oximetry 90 02/03/24 02:46 Oxygen Delivery Me thod Room Air 02/03/24 01:57 MDM - Abdominal Pain Medical Decision Making Suprapubic catheter is removed, and replaced with a larger catheter. There is clear urine draining from the bladder into his Lowery bag. There is no longer urine leaking from the stoma of the urethrostomy site. He is afebrile. His oth er vitals are normal. His pain is improved. He will be allowed discharge home to return for any concerning symptoms. No radiology studies performed this visit Discharge Plan Discharge Patient Disposition: Home Clinical Impression: Urinary retention, Blocked suprapubic catheter Condition: Stable Prescriptions: No Action methenamine hippurate 1 gram tablet 1 gm PO BID Qty: 60 12RF Rx Instructions: take with 1000mg Vitamin C Asmanex HFA 100 mcg/actuation HFA aerosol inhaler 2 puff inhalation BID 30 Days Qty: 13 4RF Stiolto Respimat 2.5-2.5 mcg/actuation mist 2 puff inhalation DAILY bisacodyl 5 mg tablet 5 mg PO DAILY PRN (Reason: constipation) Qty: 30 0RF omeprazole 20 mg Capsule,Delayed Release(Dr/Ec) 20 mg PO QAM fluoxetine [Prozac] 20 mg Capsule 60 mg PO DAILY sennosides-docusate sodium [Senna-S] 8.6-50 mg Tablet 2 tab PO DAILY PRN (Reason: Constipation) ascorbic acid (vitamin C) [Vitamin C] 500 mg Tablet 1,000 mg PO BID guaifenesin 400 mg Tablet 400 mg PO TID PRN (Reason: Congestion) Ensure Plus 0.05-1.5 gram-kcal/mL Liquid 1 ea PO TID divalproex [Depakote ER] 500 mg Tablet Extended Release 24 Hr 500 mg PO BEDTIME potassium chloride 20 mEq tablet,ER particles/crystals 10 meq PO QID metoprolol tartrate 25 mg tablet 25 mg PO BID Qty: 60 1RF ferrous gluconate 324 mg (38 mg iron) Tablet 324 mg PO DAILY ipratropium-albuterol 0.5 mg-3 mg(2.5 mg base)/3 mL solution for nebulization 3 ml inhalation QID PRN (Reason: shortness of breath) acetaminophen 500 mg tablet 500 - 1,000 mg PO QID PRN (Reason: Pain) hydrocortisone acetate 1 % cream 1 applic TOPICAL TID PRN (Reason: SKIN IRRITAION) miconazole nitrate 2 % Aerosol Powder 1 spray TOPICAL TID PRN (Reason: irritation) torsemide 10 mg Tablet 10 mg PO DAILY fluticasone propionate [Flonase] 50 mcg/actuation [place],Suspension 2 spray INTRANASAL DAILY PRN (Reason: ALLERGIES) Rx Instructions: administer into each nostril cholecalciferol (vitamin D3) [Vitamin D3] 25 mcg (1,000 unit) Tablet 25 mcg PO DAILY menthol-zinc oxide [Calmoseptine] 0.44-20.6 % Ointment 1 applic TOPICAL DAILY PRN (Reason: skin protection) ProAir HFA 90 mcg/actuation Hfa Aerosol Inhaler 2 puff INHALATION Q4H PRN (Reason: Shortness Of Breath) Discharge Orders: Discharge ED (Routine); Ordered 02/03/24 Ordered By: Jason Walsh Referrals: Janet Martinez, FRUIT PICKER MACHINE OPERATOR [Primary Care Provider] - 1-3 days Patient Instructions: Urinary Retention in Men (ED), Opioid Safety, Pain Management Activity Restrictions/Additional Instructions: Your suprapubic catheter was replaced, with appropriate drainage of urine. Return for fever, worsening pain, vomiting, nonfunctioning or nondraining catheter, any other concerning symptoms Coding Level of Care Code ED Wholesale Buyer for Azam Adamson
[2024-02-03 02:46] VITALS: BP 137/77; PULSE 71; RESP 18; O2SAT 90
== END 2024-02-03 03:17 | disposition home or self-care (01) ==
PROVIDERS: Emergency Provider Emergency Medicine; PCP Nurse Practitioner Family
DX: T83.098A Other mechanical complication of other urinary catheter, initial encounter (principal); Y84.6 Urinary catheterization as the cause of abnormal reaction of the patient, or of later complication, without mention of misadventure at the time of the procedure; R33.9 Retention of urine, unspecified; F17.210 Nicotine dependence, cigarettes, uncomplicated; I10 Essential (primary) hypertension; J44.9 Chronic obstructive pulmonary disease, unspecified; X58.XXXA Exposure to other specified factors, initial encounter
CPT/HCPCS: 51702; 99283

== ENCOUNTER 2024-02-08 13:00 | Outpatient (CLI) | payer OTHER, MEDICARE, SELFPAY ==
--- NOTE | 2024-02-08 12:53 | US_ITS ---
WS: [id number] Bilateral renal ultrasound, 02/08/2024 Clinical Data: SUPRAPUBIC CATHETER/URINARY RETENTION/HYPOTONIC BLADDER Comparison: CT abdomen pelvis, 07/31/2023 Findings: The right kidney measures 7.7 cm x 4.4 cm x 4.3 cm and the left kidney is 12.3 cm x 4.7 cm x 5.1 cm. There are bilateral renal cysts. The largest cyst on the right is 1.5 x 1.5 x 1.7 cm. The left renal cysts are larger, the largest of which measures 4.3 x 3.9 x 4.8 cm. There are no masses or hydronephr osis. The renal cortical margin is normal. No renal calculi are seen. The abdominal aorta and inferior vena cava show no vascular abnormalities. The bladder had a catheter in the lumen. US/US renal BI* [id number] Impression: Negative bilateral renal ultrasound with bilateral renal cysts.
== END 2024-02-08 13:01 | disposition home or self-care (01) ==
PROVIDERS: PCP Nurse Practitioner Family; Visit Provider Nurse Practitioner Family
DX: N31.2 Flaccid neuropathic bladder, not elsewhere classified (principal); R33.9 Retention of urine, unspecified; Z93.59 Other cystostomy status; Q61.02 Congenital multiple renal cysts
CPT/HCPCS: 76770

== ENCOUNTER 2024-02-21 03:56 | Inpatient (IN) | payer OTHER, MEDICARE, SELFPAY ==
[2024-02-21] VITALS (25 sets, daily range): BP systolic 100–190; BP diastolic 50–117; PULSE 55–152; RESP 15–23; TEMP 36.4–36.9; O2SAT 90–98; BMI 19.3; BMI 20.4
--- NOTE | 2024-02-21 04:03 | CTR_ITS ---
PROCEDURE INFORMATION: Exam: CT Head Without Contrast Exam date and time: 02/21/2024 4:23 AM Age: 78 years old Clinical indication: Injury or trauma; Fall; Blunt trauma (contusions or hematomas); Additional info: Fall, head injury TECHNIQUE: Imaging protocol: Computed tomography of the head without contrast. Radiation optimization: All CT scans at this facility use at least one of these dose optimization techniques: automated exposure control; mA and/or kV adjustment per patient size (includes targeted exams where dose is matched to clinical indication); or iterative reconstruction. COMPARISON: CT head wo con* [id number] 11/24/2020 6:24 PM RADIATION DOSE METRICS: Total DLP (mGy-cm): 1023.73 FINDINGS: Brain: Involution changes of age. Mild periventricular white matter hypoattenuation, nonspecific, likely secondary to chronic microvascular disease. Intracranial calcified atherosclerotic disease. Cerebral ventricles: Ex vacuo dilation of the ventricles and cerebral spinal fluid spaces. Paranasal sinuses: Visualized sinuses are unremarkable. No fluid levels. Mastoid air cells: Visualized mastoid air cells are well aerated. Bones: No acute findings. Soft tissues: Unremarkable. CT/CT head wo con* [id number] IMPRESSION: No acute intracranial findings.
--- NOTE | 2024-02-21 04:03 | ECG_ITS ---
[facility] Test Date: 2024-02-21 Pat Name: Michael Herrera Department: Room: Gender: Male Bilingual Instructor: : 1945 Requested By: Felecia Khan Order Number: [id number] Fierro MD: Kody Galindo M.D. Measurements Intervals [place] Rate: 147 P: 0 WV: 0 QRS: 1 QRSD: 89 T: 99 QT: 281 QTc: 440 Interpretive Statements ATRIAL FIBRILLATION WITH RAPID VENTRICULAR RESPONSE ST DEVIATION AND MODERATE T-WAVE ABNORMALITY, CONSIDER LATERAL ISCHEMIA [-0.1+ mV T-WAVE IN I/aVL/V5/V6] Compared to ECG 07/31/2023 09:45:04 T-wave abnormality now present Possible ischemia now present Electronically Signed On 02-21-2024 13:50:56 MARINE SERVICE OPERATOR by Kody Galindo M.D. [email or web address]
--- NOTE | 2024-02-21 04:04 | XRR_ITS ---
PROCEDURE INFORMATION: Exam: XR Chest Exam date and time: 02/21/2024 4:14 AM Age: 78 years old Clinical indication: Injury or trauma; Fall; Blunt trauma (contusions or hematomas); Additional info: Weakness TECHNIQUE: Imaging protocol: Radiologic exam of the chest. Views: 1 view. COMPARISON: CR XR chest 1V portable [id number] 07/31/2023 9:55 AM FINDINGS: Lungs: Unremarkable. No consolidation. Pleural spaces: Unremarkable. No pleural effusion. No pneumothorax. Heart/Mediastinum: Unremarkable. No cardiomegaly. Bones/joints: Unremarkable. XR/XR chest 1V portable [id number] IMPRESSION: No acute findings.
[2024-02-21 04:16] LABS: Basophils % 0.1 %; Eosinophils % 0.1 %; Lymphocytes % 5.5 %; Mean Corpuscular HGB Conc 32.3 g/dL (30-55); Mean Corpuscular Hemoglobin 33.9 pg (27-33); Mean Corpuscular Volume 105.1 fl (82-101); Mean Platelet Volume 10.6 fL (7.4-10.4); Monocytes # 1.3 10^3/uL (0.2-0.9); Monocytes % 7.1 %; Neutrophils # 16.11 10^3/uL (1.8-7.7); Neutrophils % 86.7 %; Nucleated Red Blood Cells % 0 %; Platelet Count 291 10^3/cmm (157-399); Red Blood Count 3.33 10^6/uL (3.85-5.65); Red Cell Distribution Width 14.1 % (12.1-15.1); White Blood Count 18.58 10^3/uL (3.29-11.43)
--- NOTE | 2024-02-21 04:16 | ED_ITS ---
Documented by User: Felecia Limon MD 02/21/24 05:28 HPI - Back Pain/Injury 2 General: Chief Complaint: Back Pain/Injury Stated Complaint: fall back pain Time Seen by Provider: 02/21/24 04:03 History of Present Illness: 78-year-old man with a history of chroni c urinary obstruction with a suprapubic catheter, atrial fibrillation, stroke, hypertension, COPD, who presents to the emergency room with worsening weakness and a fall. Apparently slid out of bed and could not get up. EMS been out a couple times tonight and he finally decided to come in because of his chronic back pain basically. He states he is having some worsening lower extremity swelling. Generalized weakness. No focal weakness. No altered mental status. No focal motor deficits. No chest pain. No abdominal pain. No nausea or vomiting. He also states he is having some difficulty or decreased output from his suprapubic catheter. No known fevers. Related Data Home Medications Medication Instructions Recorded Confirmed fluoxetine 20 mg capsule (Prozac) 60 mg PO DAILY 03/26/19 11/14/23 omeprazole 20 mg capsule,delayed 20 mg PO QAM 03/26/19 11/14/23 release ascorbic acid (vitamin C) 500 mg 1,000 mg PO BID 09/30/19 11/14/23 tablet (Vitamin C) food supplemt, lactose-reduced 1 ea PO TID 09/30/19 11/14/23 0.05 gram-1.5 kcal/mL oral liquid (Ensure Plus) guaifenesin 400 mg tablet 400 mg PO TID PRN Congestion 09/30/19 11/14/23 sennosides 8.6 mg-docusate sodium 2 tab PO DAILY PRN Constipation 09/30/19 11/14/23 50 mg tablet (Senna-S) tiotropium 2.5 mcg-olodaterol 2.5 2 puff inhalation DAILY 04/13/20 11/14/23 mcg/actuation mist for inhalation (Stiolto Respimat) divalproex 500 mg tablet,extended 500 mg PO BEDTIME 11/24/20 11/14/23 release 24 hr (Depakote ER) acetaminophen 500 mg tablet 500 - 1,000 mg PO QID PRN Pain 05/19/22 11/14/23 cholecalciferol (vitamin D3) 25 25 mcg PO DAILY 05/19/22 11/14/23 mcg (1,000 unit) tablet (Vitamin D3) ferrous gluconate 324 mg (38 mg 324 mg PO DAILY 05/19/22 11/14/23 iron) tablet fluticasone propionate 50 2 spray intranasal DAILY PRN 05/19/22 11/14/23 mcg/actuation nasal ALLERGIES spray,suspension hydrocortisone acetate 1 % topical 1 applic topical TID PRN SKIN 05/19/22 11/14/23 cream IRRITAION ipratropium 0.5 mg-albuterol 3 mg 3 ml inhalation QID PRN shortness 05/19/22 11/14/23 (2.5 mg base)/3 mL nebulization of breath soln menthol 0.44 %-zinc oxide 20.6 % 1 applic topical DAILY PRN skin 05/19/22 11/14/23 topical ointment (Calmoseptine) protection miconazole nitrate 2 % topical 1 spray topical TID PRN irritation 05/19/22 11/14/23 spray powder torsemide 10 mg tablet 10 mg PO DAILY 05/19/22 11/14/23 potassium chloride 20 mEq 10 meq PO QID 05/24/22 11/14/23 tablet,extended release(part/cryst) albuterol sulfate 90 mcg/actuation 2 puff inhalation Q4H PRN 11/14/23 11/14/23 aerosol inhaler Shortness Of Breath Previous Rx's Medication Instructions Recorded methenamine hippurate 1 gram tablet 1 gm PO BID #60 tabs 08/28/19 bisacodyl 5 mg tablet 5 mg PO DAILY PRN constipation #30 08/29/19 tabs mometasone 100 mcg/actuation HFA 2 puff inhalation BID 30 days #13 04/13/20 aerosol inhaler (Asmanex HFA) grams metoprolol tartrate 25 mg tablet 25 mg PO BID #60 tabs 05/26/22 Allergies Allergy/AdvReac Type Severity Reaction Status Date / Time nicotine Allergy Mild SKIN Verified 02/21/24 04:07 REACTION hydrocodone Allergy Unknown Verified 02/21/24 04:07 ketorolac [From Toradol] Allergy ADR-Itching Verified 02/21/24 04:07 propoxyphene [From Darvon] Allergy Unknown Verified 02/21/24 04:07 Review of Systems 2 Narrative: Constitutional symptoms: Negative except as documented in HPI. Skin symptoms: Negative except as documented in HPI. Eye symptoms: Negative except as documented in HPI. ENMT symptoms: Negative except as documented in HPI. Respiratory symptoms: Negative except as documented in HPI. Cardiovascular symptoms: Negative except as documented in HPI. Gastrointestinal symptoms: Negative except as documented in HPI. Genitourinary symptoms: Negative except as documented in HPI. Musculoskeletal symptoms: Negative except as documented in HPI. Neurologic symptoms: Negative except as documented in HPI. Psychiatric symptoms: Negative except as documented in HPI. Endocrine symptoms: Negative except as documented in HPI. PFSH ED 2 PFSH: Medical History Depression Atrial fibrillation Self-catheterizes urinary bladder Urinary retention CVA (cerebral vascular accident) Spinal stenosis, site unspecified Chronic neck pain Chronic back pain Cystitis with hematuria Multilevel degenerative disc disease Compression fracture of L1 lumbar vertebra Macrocytic anemia Ascending aortic aneurysm GERD (gastroesophageal reflux disease) Bradycardia HTN (hypertension) COPD (chronic obstructive pulmonary disease) Surgical History H/O shoulder surgery History of cystoscopy in 01/2019 -chronic inflammatory changes, bladder diverticuli S/P ureteral stent placement Hx laparoscopic cholecystectomy H/O laminectomy L5-S1 HEMILANIECTOMIES H/O spinal fusion C5-C6 Family History Father CAD (coronary artery disease) Social History Smoking and tobacco/nicotine status: current every day tobacco/nicotine user cigarettes Packs smoked per day: 1 Years cigarettes smoked: 60 Quit status (tobacco/nicotine): not considering quitting Second hand smoke exposure: Yes Alcohol intake: never Substance/Drug Use: never Caregiver/support person: Yes Lives independently: Yes Household members: none Marital status: service: Yes Current occupational status: disabled Do you think of yourself as: Straight/Heterosexual Current gender identity: Male Physical Exam 2 Narrative: EXAM NARRATIVE: General: Alert, no acute distress. Skin: Warm, dry. Head: Normocephalic, atraumatic. Neck: Supple, trachea midline. Eye: Extraocular movements are intact. Ears, nose, mouth and throat: mucosa moist. Cardiovascular: Regular, Normal peripheral perfusion. 2-3+ pitting edema of the lower extremities Respiratory: Lungs are clear to auscultation, respirations are non-labored, breath sounds are equal, Symmetrical chest wall expansion. Gastrointestinal: Soft, Nontender, Non distended Musculoskeletal: Normal ROM, no deformity. Neurological: Alert and oriented, No focal neurological deficit observed. Psychiatric: Cooperative, appropriate mood & affect. Course 2 Vital Signs: Vital signs: Vital Signs Temperature 97.5 F L 02/21/24 04:07 Pulse Rate 101 H 02/21/24 06:45 Respiratory Rate 15 02/21/24 06:45 Blood Pressure 121/75 02/21/24 06:45 Pulse Oximetry 93 02/21/24 06:45 Oxygen Delivery Me thod Room Air 02/21/24 05:26 MDM - Back Pain/Injury Medical Decision Making Medical decision making: Differential diagnosis for patient presenting with generalized weakness including but not limited to and based on the above HPI, review of systems and physical exam: Sepsis. Dehydration. Renal failure. Electrolyte abnormalities. Anemia. Congestive heart failure. Hypotension. Coronary syndrome. Hepatitis. Cirrhosis. Infections such as pneumonia, urinary tract infection, Tick bourne illness, Cellulitis, Viral infections including influenza and Covid-19. Workup: labwork and lab/exam driven imaging ordered to evaluate, rule in and rule out above pathologies. EKG: Time 4:37 AM. Rate 99. Normal sinus rhythm, nonspecific ST wave abnormalities, no ectopy, normal IL & QRS intervals, This was reviewed and interpreted by myself the ER physician at 4:[address] head: No acute intracranial process. no intracranial hemorrhage, no evidence of infarct. no evidence of acute fracture.This was reviewed and interpreted by myself the ER physician. Chest x-ray: No acute process. No infiltrate. No pneumothorax. This was reviewed and interpreted by myself the emergency room physician. I also reviewed the radiology report. CT of the lumbar spine: Severe chronic changes. No fracture. Good alignment. No step-offs. This was reviewed and interpreted by myself the emergency room physician. Lab Review: Laboratory results were reviewed and interpreted by myself the emergency room physician. Fairly significant leukocytosis with a white count of 18.6 thousand. Stable hemoglobin 11.3. Lactate is not elevated it is 1.5. Patient care transitioned to Dr. Verduzco at shift change. Awaiting urinalysis. Patient has increased weakness and an increased white count. He does have a urinary tract infection this likely needs to be treated. Labs 02/21/24 04:09 02/21/24 04:[address] 02/21/24 04:03 IMPRESSION: No acute intracranial findings. Chest X-Ray 02/21/24 04:04 IMPRESSION: No acute findings. Lumbar Spine CT 02/21/24 04:16 IMPRESSION: 1. No acute fracture. 2. Severe spondylosis with severe spinal canal stenosis at L4-L5. 3. Severe bilateral neural foraminal narrowing from L2-L5. Laboratory Results WBC 18.58 10^3/uL (3.29-11.43) H 02/21/24 04:09 RBC 3.33 10^6/uL (3.85-5.65) L 02/21/24 04:09 Hgb 11.30 g/dL (11.27-16.99) 02/21/24 04:09 Hct 35.0 % (37-53) L 02/21/24 04:09 MCV 105.1 fl (82-101) H 02/21/24 04:09 MCH 33.9 pg (27-33) H 02/21/24 04:09 MCHC 32.3 g/dL (30-55) 02/21/24 04:09 RDW 14.1 % (12.1-15.1) 02/21/24 04:09 Plt Count 291 10^3/cmm (157-399) 02/21/24 04:09 MPV 10.6 fL (7.4-10.4) H 02/21/24 04:09 Neut % (Auto) 86.7 % 02/21/24 04:09 Lymph % (Auto) 5.5 % 02/21/24 04:09 [place] % (Auto) 7.1 % 02/21/24 04:09 Eos % (Auto) 0.1 % 02/21/24 04:09 Baso % (Auto) 0.1 % 02/21/24 04:09 Neut # (Auto) 16.11 10^3/uL (1.8-7.7) H 02/21/24 04:09 Lymph # (Auto) 1.0 10^3/uL (0.8-4.8) 02/21/24 04:09 [place] # (Auto) 1.3 10^3/uL (0.2-0.9) H 02/21/24 04:09 Eos # (Auto) 0.0 10^3/uL (0.0-0.8) 02/21/24 04:09 Baso # (Auto) 0.0 10^3/uL (0.0-0.1) 02/21/24 04:09 Nucleated RBC % (auto) 0 % 02/21/24 04:09 Nucleated RBCs # 0.0 /100WBC 02/21/24 04:09 Sodium 144 mmol/L (136-145) 02/21/24 04:37 Potassium 4.3 mmol/L (3.5-5.1) 02/21/24 04:37 Chloride 105 mmol/L (98-107) 02/21/24 04:37 Carbon Dioxide 25 mmol/L (22-29) 02/21/24 04:37 Anion Gap 18.3 (5-19) 02/21/24 04:37 BUN 17 mg/dL (8-23) 02/21/24 04:37 Creatinine 1.1 mg/dL (0.7-1.2) 02/21/24 04:37 GFR Calculation Not Reportable 02/21/24 04:37 Glucose 89 mg/dL (65-115) 02/21/24 04:37 Calculated Osmolality 299 mOsm/kg (285-295) H 02/21/24 04:37 Lactic Acid 1.5 mmol/L (0.5-2.2) 02/21/24 04:37 Calcium 9.4 mg/dL (8.5-10.5) 02/21/24 04:37 Total Bilirubin 0.3 mg/dL (0.15-1.2) 02/21/24 04:37 AST 23 U/L (0-40) 02/21/24 04:37 ALT 16 U/L (0-41) 02/21/24 04:37 Alkaline Phosphatase 86 U/L (40-130) 02/21/24 04:37 Creatine Kinase 308 U/L (39-308) 02/21/24 04:37 NT-Pro-B Natriuret Pep 919 pg/mL (0-450) H 02/21/24 04:37 Total Protein 6.6 g/dL (6.6-8.7) 02/21/24 04:37 Albumin 3.5 g/dL (3.5-5.2) 02/21/24 04:37 Globulin 3.1 g/dL (1.3-4.6) 02/21/24 04:37 Urine Color Yellow (Yellow) 02/21/24 06:30 Urine Appearance Cloudy (CLEAR) A 02/21/24 06:30 Urine pH 7.5 (5-7) 02/21/24 06:30 Ur Specific [place] 1.013 (1.005-1.030) 02/21/24 06:30 Urine Protein Trace (Negative) A 02/21/24 06:30 Urine Glucose (UA) Negative (Normal) 02/21/24 06:30 Urine Ketones Negative (Negative) 02/21/24 06:30 Urine Blood 2+ (Negative) A 02/21/24 06:30 Urine Nitrate Positive (Negative) A 02/21/24 06:30 Urine Bilirubin Negative (Negative) 02/21/24 06:30 Urine Urobilinogen 0.2 mg/dL (Negative) 02/21/24 06:30 Ur Leukocyte Esterase 3+ (Negative) A 02/21/24 06:30 Urine RBC 51-100 /hpf (0-2) H 02/21/24 06:30 Urine WBC >100 /hpf (0-5) H 02/21/24 06:30 Ur Squamous Epith Cells 0-5 /hpf (0-5) 02/21/24 06:30 Amorphous Sediment Not Reportable 02/21/24 06:30 Urine Bacteria 4+ /hpf (NONE) H 02/21/24 06:30 Hyaline Casts 7.85 /lpf 02/21/24 06:30 Discharge Plan Discharge Patient Disposition: Admitted As Inpatient Admit Provider: Gely Payne Clinical Impression: Acute diastolic heart failure, Complicated UTI (urinary tract infection), Atrial fibrillation with rapid ventricular response Condition: Stable Sign Out Sign Out Data: Patient Sign Out occurred on 02/21/24 at 05:55. Patient's care was discussed, and care was transferred from Felecia Limon MD to Dileep Verduzco DO. Coding Level of Care Code ED Channeling Machine Operator for [facility] Documented by User: Dileep Verduzco DO 02/21/24 07:16 HPI - Back Pain/Injury 2 General: Chief Complaint: Back Pain/Injury Stated Complaint: fall back pain Time Seen by Provider: 02/21/24 04:03 Related Data Home Medications Medication Instructions Recorded Confirmed fluoxetine 20 mg capsule (Prozac) 60 mg PO DAILY 03/26/19 11/14/23 omeprazole 20 mg capsule,delayed 20 mg PO QAM 03/26/19 11/14/23 release ascorbic acid (vitamin C) 500 mg 1,000 mg PO BID 09/30/19 11/14/23 tablet (Vitamin C) food supplemt, lactose-reduced 1 ea PO TID 09/30/19 11/14/23 0.05 gram-1.5 kcal/mL oral liquid (Ensure Plus) guaifenesin 400 mg tablet 400 mg PO TID PRN Congestion 09/30/19 11/14/23 sennosides 8.6 mg-docusate sodium 2 tab PO DAILY PRN Constipation 09/30/19 11/14/23 50 mg tablet (Senna-S) tiotropium 2.5 mcg-olodaterol 2.5 2 puff inhalation DAILY 04/13/20 11/14/23 mcg/actuation mist for inhalation (Stiolto Respimat) divalproex 500 mg tablet,extended 500 mg PO BEDTIME 11/24/20 11/14/23 release 24 hr (Depakote ER) acetaminophen 500 mg tablet 500 - 1,000 mg PO QID PRN Pain 05/19/22 11/14/23 cholecalciferol (vitamin D3) 25 25 mcg PO DAILY 05/19/22 11/14/23 mcg (1,000 unit) tablet (Vitamin D3) ferrous gluconate 324 mg (38 mg 324 mg PO DAILY 05/19/22 11/14/23 iron) tablet fluticasone propionate 50 2 spray intranasal DAILY PRN 05/19/22 11/14/23 mcg/actuation nasal ALLERGIES spray,suspension hydrocortisone acetate 1 % topical 1 applic topical TID PRN SKIN 05/19/22 11/14/23 cream IRRITAION ipratropium 0.5 mg-albuterol 3 mg 3 ml inhalation QID PRN shortness 05/19/22 11/14/23 (2.5 mg base)/3 mL nebulization of breath soln menthol 0.44 %-zinc oxide 20.6 % 1 applic topical DAILY PRN skin 05/19/22 11/14/23 topical ointment (Calmoseptine) protection miconazole nitrate 2 % topical 1 spray topical TID PRN irritation 05/19/22 11/14/23 spray powder torsemide 10 mg tablet 10 mg PO DAILY 05/19/22 11/14/23 potassium chloride 20 mEq 10 meq PO QID 05/24/22 11/14/23 tablet,extended release(part/cryst) albuterol sulfate 90 mcg/actuation 2 puff inhalation Q4H PRN 11/14/23 11/14/23 aerosol inhaler Shortness Of Breath Previous Rx's Medication Instructions Recorded methenamine hippurate 1 gram tablet 1 gm PO BID #60 tabs 08/28/19 bisacodyl 5 mg tablet 5 mg PO DAILY PRN constipation #30 08/29/19 tabs mometasone 100 mcg/actuation HFA 2 puff inhalation BID 30 days #13 04/13/20 aerosol inhaler (Asmanex HFA) grams metoprolol tartrate 25 mg tablet 25 mg PO BID #60 tabs 05/26/22 Allergies Allergy/AdvReac Type Severity Reaction Status Date / Time nicotine Allergy Mild SKIN Verified 02/21/24 04:07 REACTION hydrocodone Allergy Unknown Verified 02/21/24 04:07 ketorolac [From Toradol] Allergy ADR-Itching Verified 02/21/24 04:07 propoxyphene [From Darvon] Allergy Unknown Verified 02/21/24 04:07 [facility] ED 2 PFSH: Medical History Depression Atrial fibrillation Self-catheterizes urinary bladder Urinary retention CVA (cerebral vascular accident) Spinal stenosis, site unspecified Chronic neck pain Chronic back pain Cystitis with hematuria Multilevel degenerative disc disease Compression fracture of L1 lumbar vertebra Macrocytic anemia Ascending aortic aneurysm GERD (gastroesophageal reflux disease) Bradycardia HTN (hypertension) COPD (chronic obstructive pulmonary disease) Surgical History H/O shoulder surgery History of cystoscopy in 01/2019 -chronic inflammatory changes, bladder diverticuli S/P ureteral stent placement Hx laparoscopic cholecystectomy H/O laminectomy L5-S1 HEMILANIECTOMIES H/O spinal fusion C5-C6 Family History Father CAD (coronary artery disease) Social History Smoking and tobacco/nicotine status: current every day tobacco/nicotine user cigarettes Packs smoked per day: 1 Years cigarettes smoked: 60 Quit status (tobacco/nicotine): not considering quitting Second hand smoke exposure: Yes Alcohol intake: never Substance/Drug Use: never Caregiver/support person: Yes Lives independently: Yes Household members: none Marital status: service: Yes Current occupational status: disabled Do you think of yourself as: Straight/Heterosexual Current gender identity: Male Course 2 Vital Signs: Vital signs: Vital Signs Temperature 97.5 F L 02/21/24 04:07 Pulse Rate 101 H 02/21/24 06:45 Respiratory Rate 15 02/21/24 06:45 Blood Pressure 121/75 02/21/24 06:45 Pulse Oximetry 93 02/21/24 06:45 Oxygen Delivery Me thod Room Air 02/21/24 05:26 MDM - Back Pain/Injury Medical Decision Making Medical decision making: Differential diagnosis for patient presenting with generalized weakness including but not limited to and based on the above HPI, review of systems and physical exam: Sepsis. Dehydration. Renal failure. Electrolyte abnormalities. Anemia. Congestive heart failure. Hypotension. Coronary syndrome. Hepatitis. Cirrhosis. Infections such as pneumonia, urinary tract infection, Tick bourne illness, Cellulitis, Viral infections including influenza and Covid-19. Workup: labwork and lab/exam driven imaging ordered to evaluate, rule in and rule out above pathologies. EKG: Time 4:37 AM. Rate 99. Normal sinus rhythm, nonspecific ST wave abnormalities, no ectopy, normal IL & QRS intervals, This was reviewed and interpreted by myself the ER physician at 4:[address] head: No acute intracranial process. no intracranial hemorrhage, no evidence of infarct. no evidence of acute fracture.This was reviewed and interpreted by myself the ER physician. Chest x-ray: No acute process. No infiltrate. No pneumothorax. This was reviewed and interpreted by myself the emergency room physician. I also reviewed the radiology report. CT of the lumbar spine: Severe chronic changes. No fracture. Good alignment. No step-offs. This was reviewed and interpreted by myself the emergency room physician. Lab Review: Laboratory results were reviewed and interpreted by myself the emergency room physician. Fairly significant leukocytosis with a white count of 18.6 thousand. Stable hemoglobin 11.3. Lactate is not elevated it is 1.5. Patient care transitioned to Dr. Verduzco at shift change. Awaiting urinalysis. Patient has increased weakness and an increased white count. He does have a urinary tract infection this likely needs to be treated. Care assumed at change of shift. On exam patient is tender suprapubically believe his catheter is blocked 1 only pulled the catheter placed at nurse reported there is large outpouring of urine from the os. Will monitor the urine output may need to clamp it for a time. He also is in significant heart failure. He has significant lower extremity edema. While he was in the emergency room patient developed A-fib with RVR EKG was done demonstrated at this heart rate was into the 130s and 40s I ordered a Cardizem bolus and drip however before the nurse was able to get started he spontaneously converted back to a normal sinus rhythm with a rate in the upper 70s. This was verified by EKG. He was given a single dose of his home metoprolol before he converted but he converted very shortly after receiving it is unlikely it had had time to act on his heart rate up to that point. Will admit for exacerbation congestive heart failure and intermittent A-fib with RVR monitor patient closely. He has been given Lasix. Is has a leukocytosis and we are pending a urine sample. \ reviewed all this with Dr. Payne for the hospitalist she is aware that have not initiated any IV antibiotics \ Hospitalist to assume care orders written. Urine resulted shows cystitis. There is also a fair amount of hematuria CT kidneys urinary bladder ordered. Will start Zosyn. He is converted back to a sinus rhythm. Updated Dr. Payne. Labs 02/21/24 04:09 02/21/24 04:[address] 02/21/24 04:03 IMPRESSION: No acute intracranial findings. Chest X-Ray 02/21/24 04:04 IMPRESSION: No acute findings. Lumbar Spine CT 02/21/24 04:16 IMPRESSION: 1. No acute fracture. 2. Severe spondylosis with severe spinal canal stenosis at L4-L5. 3. Severe bilateral neural foraminal narrowing from L2-L5. Laboratory Results WBC 18.58 10^3/uL (3.29-11.43) H 02/21/24 04:09 RBC 3.33 10^6/uL (3.85-5.65) L 02/21/24 04:09 Hgb 11.30 g/dL (11.27-16.99) 02/21/24 04:09 Hct 35.0 % (37-53) L 02/21/24 04:09 MCV 105.1 fl (82-101) H 02/21/24 04:09 MCH 33.9 pg (27-33) H 02/21/24 04:09 MCHC 32.3 g/dL (30-55) 02/21/24 04:09 RDW 14.1 % (12.1-15.1) 02/21/24 04:09 Plt Count 291 10^3/cmm (157-399) 02/21/24 04:09 MPV 10.6 fL (7.4-10.4) H 02/21/24 04:09 Neut % (Auto) 86.7 % 02/21/24 04:09 Lymph % (Auto) 5.5 % 02/21/24 04:09 [place] % (Auto) 7.1 % 02/21/24 04:09 Eos % (Auto) 0.1 % 02/21/24 04:09 Baso % (Auto) 0.1 % 02/21/24 04:09 Neut # (Auto) 16.11 10^3/uL (1.8-7.7) H 02/21/24 04:09 Lymph # (Auto) 1.0 10^3/uL (0.8-4.8) 02/21/24 04:09 [place] # (Auto) 1.3 10^3/uL (0.2-0.9) H 02/21/24 04:09 Eos # (Auto) 0.0 10^3/uL (0.0-0.8) 02/21/24 04:09 Baso # (Auto) 0.0 10^3/uL (0.0-0.1) 02/21/24 04:09 Nucleated RBC % (auto) 0 % 02/21/24 04:09 Nucleated RBCs # 0.0 /100WBC 02/21/24 04:09 Sodium 144 mmol/L (136-145) 02/21/24 04:37 Potassium 4.3 mmol/L (3.5-5.1) 02/21/24 04:37 Chloride 105 mmol/L (98-107) 02/21/24 04:37 Carbon Dioxide 25 mmol/L (22-29) 02/21/24 04:37 Anion Gap 18.3 (5-19) 02/21/24 04:37 BUN 17 mg/dL (8-23) 02/21/24 04:37 Creatinine 1.1 mg/dL (0.7-1.2) 02/21/24 04:37 GFR Calculation Not Reportable 02/21/24 04:37 Glucose 89 mg/dL (65-115) 02/21/24 04:37 Calculated Osmolality 299 mOsm/kg (285-295) H 02/21/24 04:37 Lactic Acid 1.5 mmol/L (0.5-2.2) 02/21/24 04:37 Calcium 9.4 mg/dL (8.5-10.5) 02/21/24 04:37 Total Bilirubin 0.3 mg/dL (0.15-1.2) 02/21/24 04:37 AST 23 U/L (0-40) 02/21/24 04:37 ALT 16 U/L (0-41) 02/21/24 04:37 Alkaline Phosphatase 86 U/L (40-130) 02/21/24 04:37 Creatine Kinase 308 U/L (39-308) 02/21/24 04:37 NT-Pro-B Natriuret Pep 919 pg/mL (0-450) H 02/21/24 04:37 Total Protein 6.6 g/dL (6.6-8.7) 02/21/24 04:37 Albumin 3.5 g/dL (3.5-5.2) 02/21/24 04:37 Globulin 3.1 g/dL (1.3-4.6) 02/21/24 04:37 Urine Color Yellow (Yellow) 02/21/24 06:30 Urine Appearance Cloudy (CLEAR) A 02/21/24 06:30 Urine pH 7.5 (5-7) 02/21/24 06:30 Ur Specific [place] 1.013 (1.005-1.030) 02/21/24 06:30 Urine Protein Trace (Negative) A 02/21/24 06:30 Urine Glucose (UA) Negative (Normal) 02/21/24 06:30 Urine Ketones Negative (Negative) 02/21/24 06:30 Urine Blood 2+ (Negative) A 02/21/24 06:30 Urine Nitrate Positive (Negative) A 02/21/24 06:30 Urine Bilirubin Negative (Negative) 02/21/24 06:30 Urine Urobilinogen 0.2 mg/dL (Negative) 02/21/24 06:30 Ur Leukocyte Esterase 3+ (Negative) A 02/21/24 06:30 Urine RBC 51-100 /hpf (0-2) H 02/21/24 06:30 Urine WBC >100 /hpf (0-5) H 02/21/24 06:30 Ur Squamous Epith Cells 0-5 /hpf (0-5) 02/21/24 06:30 Amorphous Sediment Not Reportable 02/21/24 06:30 Urine Bacteria 4+ /hpf (NONE) H 02/21/24 06:30 Hyaline Casts 7.85 /lpf 02/21/24 06:30 All radiology interpretation(s) finalized by discharge Discharge Plan Discharge Patient Disposition: Admitted As Inpatient Admit Provider: Gely Payne Clinical Impression: Acute diastolic heart failure, Complicated UTI (urinary tract infection), Atrial fibrillation with rapid ventricular response Condition: Stable Sign Out Sign Out Data: Patient Sign Out occurred on 02/21/24 at 05:55. Patient's care was discussed, and care was transferred from Felecia Limon MD to Dileep Verduzco DO. Coding Level of Care Code ED Channeling Machine Operator for [facility] [place]
--- NOTE | 2024-02-21 04:16 | CTR_ITS ---
PROCEDURE INFORMATION: Exam: CT Lumbar Spine Without Contrast Exam date and time: 02/21/2024 4:26 AM Age: 78 years old Clinical indication: Injury or trauma; Fall; Blunt trauma (contusions or hematomas); Prior surgery; Surgery date: 6+ months; Surgery type: HX of laminectomy l5-s1. Choley; Additional info: Low back pain TECHNIQUE: Imaging protocol: Computed tomography of the lumbar spine without contrast. Radiation optimization: All CT scans at this facility use at least one of these dose optimization techniques: automated exposure control; mA and/or kV adjustment per patient size (includes targeted exams where dose is matched to clinical indication); or iterative reconstruction. COMPARISON: MR lumbar spine wo con* [id number] 02/18/2019 11:14 AM RADIATION DOSE METRICS: Total DLP (mGy-cm): 540.57 FINDINGS: Bones/joints: Osteopenia. No acute fracture. Stable chronic L1 vertebral body compression fracture. Severe spondylosis. Loss of intervertebral disc space height at L4-L5. Grade 1 retrolisthesis of L5 on S1. S1 laminectomy. Disc bulge at L1-L2, L2-L3, and L3-L4 cause mild spinal canal stenosis. Disc bulge, posterior osteophytes, and facet arthropathy at L4-L5 cause severe spinal canal stenosis. Severe bilateral neural foraminal narrowing at L2-L3, L3-L4, and L4-L5. Soft tissues: Unremarkable. CT/CT lumbar spine wo con* [id number] IMPRESSION: 1. No acute fracture. 2. Severe spondylosis with severe spinal canal stenosis at L4-L5. 3. Severe bilateral neural foraminal narrowing from L2-L5.
--- NOTE | 2024-02-21 04:37 | ECG_ITS ---
[employer] Test Date: 2024-02-21 Pat Name: Michael Herrera Department: Room: 111 Gender: Male Rehab Aid: : 1945 Requested By: Dileep Khan Order Number: [id number] Vadim MD: Kody Galindo M.D. Measurements Intervals [place] Rate: 99 P: 100 AR: 193 QRS: -14 QRSD: 89 T: 97 QT: 379 QTc: 488 Interpretive Statements SINUS RHYTHM INFERIOR MYOCARDIAL INFARCTION , OF INDETERMINATE AGE [40+ ms Q WAVE AND/OR ST/T ABNORMALITY IN II/aVF] ANTEROLATERAL MYOCARDIAL INFARCTION , OF INDETERMINATE AGE [40+ ms Q WAVE IN I/aVL/V3-V6] Compared to ECG 07/31/2023 09:45:04 Myocardial infarct finding now present Atrial fibrillation no longer present Heavy baseline artifacts; Need to repeat the study. Electronically Signed On 02-21-2024 13:53:15 MONITORING SPECIALIST by Kody Galindo M.D. [email or web address]
[2024-02-21 04:57] LABS: Lactic Sepsis W/Reflex 1.5 mmol/L (0.5-2.2)
--- NOTE | 2024-02-21 05:05 | ECG_ITS ---
[facility] Test Date: 2024-02-21 Pat Name: Michael Herrera Department: Room: 111 Gender: Male Territory Representative: : 1945 Requested By: Dileep Khan Order Number: [id number] Vadim MD: Kody Galindo M.D. Measurements Intervals [place] Rate: 135 P: 0 TN: 0 QRS: -13 QRSD: 85 T: 105 QT: 336 QTc: 504 Interpretive Statements ATRIAL FIBRILLATION WITH RAPID VENTRICULAR RESPONSE ST DEVIATION AND MODERATE T-WAVE ABNORMALITY, CONSIDER LATERAL ISCHEMIA [-0.1+ mV T-WAVE IN I/aVL/V5/V6] Compared to ECG 02/21/2024 04:37:52 T-wave abnormality now present Possible ischemia now present Sinus rhythm no longer present Myocardial infarct finding no longer present Electronically Signed On 02-21-2024 13:53:20 SAP BW ARCHITECT by Kody Galindo M.D. [id number] f
[2024-02-21 05:08] LABS: Alanine Aminotransferase 16 U/L (0-41); Albumin Level 3.5 g/dL (3.5-5.2); Alkaline Phosphatase 86 U/L (40-130); Anion Gap 18.3 (5-19); Aspartate Amino Transferase 23 U/L (0-40); Blood Urea Nitrogen 17 mg/dL (8-23); Calcium 9.4 mg/dL (8.5-10.5); Carbon Dioxide 25 mmol/L (22-29); Chloride 105 mmol/L (98-107); Creatine Phosphokinase 308 U/L (39-308); Creatinine Clr Calc Pharmacy 52.6002; Globulin 3.1 g/dL (1.3-4.6); Glucose 89 mg/dL (65-115); NT Pro B Type Natriuretic Pept 919 pg/mL (0-450); Osmolality Calculated 299 mOsm/kg (285-295); Potassium 4.3 mmol/L (3.5-5.1); Sodium 144 mmol/L (136-145); Total Bilirubin 0.3 mg/dL (0.15-1.2); Total Protein 6.6 g/dL (6.6-8.7)
--- NOTE | 2024-02-21 05:17 | PC.NURSE ---
0505: Patient's heart rate noted to be elevated. A second EKG done showing atrial fibrillation with RVR. EKG given to Dr. Limon with no new orders at this time.
--- NOTE | 2024-02-21 05:20 | PC.NURSE ---
100 ml drained from suprapubic catheter bag.
[2024-02-21] MEDS: ondansetron 2 mg/ML SDV 2 mL 4 MG IVP (05:43)
[2024-02-21] MEDS: morphine 4 mg/mL SDV 1 mL 2 MG IVP (05:44)
[2024-02-21] MEDS: FUROsemide 10 mg/mL SDV 4mL 40 MG IVP (06:05)
[2024-02-21] MEDS: metoprolol tartrate 25 mg Tablet PO ×2 (06:07→17:48)
[2024-02-21] MEDS: metoclopramide 5 mg/mL SDV 2 mL 10 MG IVP (06:21)
--- NOTE | 2024-02-21 06:46 | ECG_ITS ---
[employer] Test Date: 2024-02-21 Pat Name: Michael Herrera Department: Room: 111 Gender: Male Med Dir: : 1945 Requested By: Dileep Khan Order Number: [id number] Vadim MD: Kody Galindo M.D. Measurements Intervals [place] Rate: 93 P: 44 CT: 203 QRS: -46 QRSD: 86 T: 81 QT: 374 QTc: 467 Interpretive Statements SINUS RHYTHM POSSIBLE RIGHT VENTRICULAR CONDUCTION DELAY [RSR (QR) IN V1/V2] LEFT ANTERIOR FASCICULAR BLOCK [QRS AXIS <= -45, QR IN I, RS IN II] INFERIOR MYOCARDIAL INFARCTION , PROBABLY OLD [40+ ms Q WAVE AND/OR ST/T ABNORMALITY IN II/aVF] POSSIBLE ANTEROLATERAL MYOCARDIAL INFARCTION , OF INDETERMINATE AGE [30 ms Q WAVE IN I/aVL/V3-V6] Compared to ECG 02/21/2024 05:57:11 Left anterior fascicular block now present.Myocardial infarct finding now present Atrial fibrillation no longer present. T-wave abnormality no longer present Possible ischemia no longer present . Electronically Signed On 02-21-2024 13:53:43 TRACER CLERK by Kody Galindo M.D. [email or web address]
--- NOTE | 2024-02-21 06:53 | PC.NURSE ---
Patient's suprapubic catheter changed out by this RN with an 18 Fr catheter using sterile technique per Dr. Verduzco.
[2024-02-21 06:58] LABS: Bacteria Urine 4+ /hpf; Bilirubin Urine Negative (Negative); Blood Urine 2+ (Negative); Glucose Urine UA Negative (Normal); Hyaline Casts Urine 7.85 /lpf; Ketones Urine Negative (Negative); Leukocyte Esterase Urine 3+ (Negative); Nitrate Urine Positive (Negative); Protein Urine Trace (Negative); RBC Urine 51-100 /hpf (0-2); Specific Gravity, Urine 1.013 (1.005-1.030); Squamous Epithelial Cell Urine 0-5 /hpf (0-5); Universal Test for UA Present (0); Urine Appearance Cloudy (CLEAR); Urine Color Yellow (Yellow); Urobilinogen Urine 0.2 mg/dL (Negative); WBC Urine >100 /hpf (0-5); pH Urine 7.5 (5-7)
[2024-02-21 06:59] LABS: Add Urine Culture? Yes
--- NOTE | 2024-02-21 07:10 | CTR_ITS ---
PROCEDURE INFORMATION: Exam: CT Abdomen And Pelvis Without Contrast Exam date and time: 02/21/2024 7:20 AM Age: 78 years old Clinical indication: Abdominal pain; Flank; Other: Bilat; Additional info: Flank pain TECHNIQUE: Imaging protocol: Computed tomography of the abdomen and pelvis without contrast. Radiation optimization: All CT scans at this facility use at least one of these dose optimization techniques: automated exposure control; mA and/or kV adjustment per patient size (includes targeted exams where dose is matched to clinical indication); or iterative reconstruction. COMPARISON: CT abdomen pelvis w con* [id number] 07/31/2023 10:57 AM RADIATION DOSE METRICS: Total DLP (mGy-cm): 371.38 FINDINGS: Tubes, catheters and devices: Suprapubic urinary catheter is in place. Lungs: Basilar scarring/atelectasis. Heart: Base of heart is unremarkable as visualized. Liver: Normal. No mass. Gallbladder and biliary ducts: Status post cholecystectomy. Pancreas: Normal. No ductal dilation. Spleen: Somewhat atrophic appearance of the spleen. Adrenal glands: Multinodular adrenal glands without discrete mass or lesion. Kidneys and ureters: Benign bilateral renal cysts. Stomach and bowel: Multifocal small bowel prominence not reaching size criteria for obstruction. Mild colonic stool burden. Appendix: No evidence of appendicitis. Intraperitoneal space: Multiple vascular calcifications are seen within the central mesentery, likely atherosclerotic disease. Vasculature: Diffuse severe atherosclerotic disease. Lymph nodes: Unremarkable. No enlarged lymph nodes. Urinary bladder: Unremarkable as visualized. Reproductive: Unremarkable as visualized. Bones/joints: Degenerative changes of the visualized osseous structures. Diffuse demineralization of the visualized osseous structures. L1 compression deformity with superimposed Schmorl's node, stable from prior comparison on 07/31/2023. Soft tissues: Unremarkable. CT/CT kidney stone [id number] IMPRESSION: No acute findings. COMMENTS: Consistent with the [employer]'s Incidental Findings Committee white paper (J Am Didier Radiol 2018): Any incidental renal lesion less than 1 cm or classified as too small to characterize, or any incidental cystic renal lesion characterized as simple-appearing, is likely benign. No follow-up imaging is recommended for these lesions per consensus recommendations based on imaging criteria.
--- NOTE | 2024-02-21 08:05 | PC.NURSE ---
received in to room 102 via stretcher from er at 0745.report received.pt states he lives alone.w/c bound.states has help that comes in daily to help him.sr on monitor.denies pain.instructed to notify staff if needs to get up...or for any pain,sob,dizziness...or for any concerns at all.pt verb understanding of instructions.
--- NOTE | 2024-02-21 08:24 | PC.PHAR ---
Pt is CT, which is closed for the holiday. Pt states still takes the current medications on his list. I named them all off, including the otc supplements and stool softener. Pt has 1 new medication Buspirone 5 mg tid prn 02/19/24 30ds. He was unsure if he has started yet.
[2024-02-21] MEDS: piperacillin-tazobactam 3.375 GM in sodium chloride 0.9% (plus) 50 ML IV (09:38)
--- NOTE | 2024-02-21 10:32 | PC.NURSE ---
pt has suprapubic catheter which was changed in the e.r..insertion site w/o s/sxs infection
[2024-02-21] MEDS: enoxaparin 40 mg/0.4 mL Syringe SUBCUT (12:13)
[2024-02-21] MEDS: levofloxacin-dextrose 5 % 750 MG/150 ML PREMIX 100 MG IV (12:13)
[2024-02-21] MEDS: fluoxetine 20 mg Capsule 60 MG PO (12:14)
[2024-02-21] MEDS: potassium chloride ER 10 mEq Tablet PO ×3 (12:14→21:04)
[2024-02-21] MEDS: famotidine 20 mg/2 mL INJ IVP ×2 (12:14→23:16)
--- NOTE | 2024-02-21 12:40 | P.HP_ITS ---
Providers/Chief Complaint 2 Admitting Physician: Gely Payne MD Primary Care Provider: ZEINAB Almaguer Chief Complaint: fall back pain History of Present Illness Doc Michelle Herrera Jr is a 78 year old male with past medical history of chronic urinary obstruction with suprapubic catheter, atrial fibrillation, stroke, hypertension, COPD, multilevel degenerative disc disease, spinal stenosis presented with complaint of weakness and a fall. He is bedbound at baseline, slid out of his bed and was not able to get up. EMS visited him couple of times overnight but finally he decided to come to ER due to severe weakness and low back pain. He further complained of abdominal pain and blocked suprapubic catheter. Denies any complaint of fever, nausea, vomiting, diarrhea or urinary complaints but has been having poor p.o. intake. He lives alone and is bedbound at baseline and is being taken care of by home health aid. He does not have any immediate family. In the ER he was found to be in A-fib with RVR received IV Cardizem 20 mg and converted to sinus rhythm. Never started on Cardizem drip. Also received IV Lasix 40 mg x 1 and IV Zosyn 3.375 g x 1 Review of Systems 2 General: Reports: 10 or more systems reviewed and unremarkable except in HPI and below Medications/Allergies Home Medications Medication Instructions Recorded Confirmed Last Taken Type fluoxetine 20 mg capsule (Prozac) 60 mg PO DAILY 03/26/19 02/21/24 02/20/24 History omeprazole 20 mg capsule,delayed 20 mg PO QAM 03/26/19 02/21/24 02/20/24 History release methenamine hippurate 1 gram tablet 1 gm PO BID #60 tabs 08/28/19 02/21/24 02/20/24 Rx bisacodyl 5 mg tablet 5 mg PO DAILY PRN constipation #30 08/29/19 02/21/24 11/24/20 Rx tabs ascorbic acid (vitamin C) 500 mg 1,000 mg PO BID 09/30/19 02/21/24 02/20/24 History tablet (Vitamin C) food supplemt, lactose-reduced 1 ea PO TID 09/30/19 02/21/24 02/20/24 History 0.05 gram-1.5 kcal/mL oral liquid (Ensure Plus) guaifenesin 400 mg tablet 400 mg PO TID PRN Congestion 09/30/19 02/21/24 11/24/20 History mometasone 100 mcg/actuation HFA 2 puff inhalation BID 30 days #13 04/13/20 02/21/24 02/20/24 Rx aerosol inhaler (Asmanex HFA) grams tiotropium 2.5 mcg-olodaterol 2.5 2 puff inhalation DAILY 04/13/20 02/21/24 02/20/24 History mcg/actuation mist for inhalation (Stiolto Respimat) divalproex 500 mg tablet,extended 500 mg PO BEDTIME 11/24/20 02/21/24 02/20/24 History release 24 hr (Depakote ER) acetaminophen 500 mg tablet 500 - 1,000 mg PO QID PRN Pain 05/19/22 02/21/24 05/19/22 04:00 History cholecalciferol (vitamin D3) 25 25 mcg PO DAILY 05/19/22 02/21/24 02/20/24 History mcg (1,000 unit) tablet (Vitamin D3) ferrous gluconate 324 mg (38 mg 324 mg PO DAILY 05/19/22 02/21/24 02/20/24 History iron) tablet fluticasone propionate 50 2 spray intranasal DAILY PRN 05/19/22 02/21/24 Unknown History mcg/actuation nasal ALLERGIES spray,suspension hydrocortisone acetate 1 % topical 1 applic topical TID PRN SKIN 05/19/22 02/21/24 Unknown History cream IRRITAION ipratropium 0.5 mg-albuterol 3 mg 3 ml inhalation QID PRN shortness 05/19/22 02/21/24 Unknown History (2.5 mg base)/3 mL nebulization of breath soln menthol 0.44 %-zinc oxide 20.6 % 1 applic topical DAILY PRN skin 05/19/22 02/21/24 Unknown History topical ointment (Calmoseptine) protection miconazole nitrate 2 % topical 1 spray topical TID PRN irritation 05/19/22 02/21/24 Unknown History spray powder torsemide 10 mg tablet 10 mg PO DAILY 05/19/22 02/21/24 02/20/24 History potassium chloride 20 mEq 10 meq PO QID 05/24/22 02/21/24 02/20/24 History tablet,extended release(part/cryst) metoprolol tartrate 25 mg tablet 25 mg PO BID #60 tabs 05/26/22 02/21/24 02/20/24 Rx albuterol sulfate 90 mcg/actuation 2 puff inhalation Q4H PRN 11/14/23 02/21/24 Unknown History aerosol inhaler Shortness Of Breath buspirone 5 mg tablet 5 mg PO TID PRN Anxiety 02/21/24 02/21/24 Unknown History Allergies Allergy/AdvReac Type Severity Reaction Status Date / Time nicotine Allergy Mild SKIN Verified 02/21/24 04:07 REACTION hydrocodone Allergy Unknown Verified 02/21/24 04:07 ketorolac [From Toradol] Allergy ADR-Itching Verified 02/21/24 04:07 propoxyphene [From Darvon] Allergy Unknown Verified 02/21/24 04:07 PFSH Acute 2 PFSH: Medical History Depression Atrial fibrillation Self-catheterizes urinary bladder Urinary retention CVA (cerebral vascular accident) Spinal stenosis, site unspecified Chronic neck pain Chronic back pain Cystitis with hematuria Multilevel degenerative disc disease Compression fracture of L1 lumbar vertebra Macrocytic anemia Ascending aortic aneurysm GERD (gastroesophageal reflux disease) Bradycardia HTN (hypertension) COPD (chronic obstructive pulmonary disease) Surgical History H/O shoulder surgery History of cystoscopy in 01/2019 -chronic inflammatory changes, bladder diverticuli S/P ureteral stent placement Hx laparoscopic cholecystectomy H/O laminectomy L5-S1 HEMILANIECTOMIES H/O spinal fusion C5-C6 Family History Father CAD (coronary artery disease) Social History Smoking and tobacco/nicotine status: current every day tobacco/nicotine user cigarettes Packs smoked per day: 1 Years cigarettes smoked: 60 Quit status (tobacco/nicotine): not considering quitting Second hand smoke exposure: Yes Alcohol intake: never Substance/Drug Use: never Caregiver/support person: Yes Lives independently: Yes Household members: none Marital status: service: Yes Current occupational status: disabled Do you think of yourself as: Straight/Heterosexual Current gender identity: Male Vitals/I&O/Wt Last Vital Signs Temp 97.9 F 02/21/24 12:00 Pulse 68 02/21/24 12:00 Resp 22 H 02/21/24 12:00 BP 121/71 02/21/24 12:00 Pulse Ox 90 02/21/24 12:00 O2 Del Method Room Air 02/21/24 12:00 02/20/24 02/21/24 02/21/24 22:59 06:59 14:59 Intake Total 200 / 200 240 / 240 Balance 200 / 200 240 / 240 Weight last 48 hrs Weight 64.495 kg Weight 61.235 kg Data 02/21/24 04:09 02/21/24 04:37 Micro: Microbiology 02/21/24 04:37 Blood Culture - Preliminary Blood SPECIMEN COLLECTED 02/21/24 04:09 Blood Culture - Preliminary Blood SPECIMEN COLLECTED A&P Assessment and plan (1) UTI (urinary tract infection): (2) Generalized weakness: (3) Atrial fibrillation: (4) COPD (chronic obstructive pulmonary disease): Qualifiers: COPD type: unspecified COPD Qualified Code(s): J44.9 - Chronic obstructive pulmonary disease, unspecified (5) Falls frequently: (6) Multilevel degenerative disc disease: Plan Doc S Sharon Matthew is a 78 year old male with past medical history of chronic urinary obstruction with suprapubic catheter, atrial fibrillation, stroke, hypertension, COPD, multilevel degenerative disc disease, spinal stenosis presented with complaint of weakness and a fall, abdominal pain, blocked suprapubic catheter and found to have WBC count of 18.5, UA strongly positive. Chest x-ray, CT head, CT AP negative for acute findings CT lumbar spine showed severe spondylosis with severe spinal canal stenosis at L4-L5 Severe bilateral neural foraminal narrowing from L2-L5, findings likely stable as compared to previous. Would need outpatient follow-up with spine surgeon. #Generalized weakness and abdominal pain likely secondary to UTI- Blocked suprapubic catheter replaced in ER UA strongly positive showing urine blood 2+ urine nitrate positive leukocyte esterase 3+, RBC 51-100, WBCs more than 100, urine bacteria 4+ Has history of recurrent UTI in the past Urine cultures reviewed showed Enterobacter and Susan in the past Received IV Zosyn 3.375 g x 1 in ED Will do IV Levaquin 750 mg daily Follow-up urine culture Encourage p.o. 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 ECHO 06/15 LV systolic function is normal with EF of 60-65% Trace mitral regurgitation Trace tricuspid regurgitation #COPD-stable Continue nebulizers as needed #Depression-continue [employer] Depakote and fluoxetine DVT prophylaxis with subcutaneous Lovenox GI prophylaxis with IV Pepcid 20 mg twice daily CODE STATUS discussed with the patient, he is full code. Attestations 2 Medical Necessity Statement*: He needs continued hospitalization crossing 2 midnights for management of UTI, generalized weakness, monitoring of A-fib, IV antibiotics, PT eval and case management for discharge planning Time Spent in Patient Care: 40 minutes Coding Level [facility] UTI (urinary tract infection) N39.0 Generalized weakness R53.1 Atrial fibrillation I48.91 Chronic obstructive pulmonary disease, unspecified COPD type J44.9 COPD type: unspecified COPD Falls frequently R29.6 Multilevel degenerative disc disease M53.9 Time Spent (min) 40
[2024-02-21] MEDS: ipratropium-albuterol 3 mL Neb INHALATION ×3 (12:56→19:45)
[2024-02-21] MEDS: BuSPIRONE 10 mg Tablet 5 MG PO ×2 (16:07→23:14)
[2024-02-21] MEDS: acetaminophen 500 mg Tablet 1000 MG PO ×2 (16:08→23:14)
[2024-02-21] MEDS: docusate sodium 100 mg Capsule PO (17:48)
[2024-02-21] MEDS: budesonide 0.5 mg/2 mL Neb INHALATION (19:45)
[2024-02-21] MEDS: divalproex ER 500 mg Tablet (24H) PO (21:04)
[2024-02-21] MEDS: VANCOMYCIN ADD-Vantage 1,000 MG in 0.9% NaCl ADD-Vantage 250 ML 250 MG IV (23:16)
[2024-02-22] VITALS (11 sets, daily range): BP systolic 107–142; BP diastolic 52–75; PULSE 58–97; RESP 16–27; TEMP 36.5–36.8; O2SAT 87–96
[2024-02-22 05:05] LABS: Basophils % 0.2 %; Eosinophils % 0.3 %; Hematocrit 34.4 % (37-53); Lymphocytes # 1.9 10^3/uL (0.8-4.8); Lymphocytes % 15.4 %; Mean Corpuscular HGB Conc 31.4 g/dL (30-55); Mean Corpuscular Volume 105.2 fl (82-101); Mean Platelet Volume 10.8 fL (7.4-10.4); Monocytes # 1.3 10^3/uL (0.2-0.9); Monocytes % 10.6 %; Neutrophils # 8.85 10^3/uL (1.8-7.7); Neutrophils % 73.1 %; Nucleated Red Blood Cells % 0 %; Platelet Count 291 10^3/cmm (157-399); Red Blood Count 3.27 10^6/uL (3.85-5.65); Red Cell Distribution Width 14.2 % (12.1-15.1); White Blood Count 12.11 10^3/uL (3.29-11.43)
[2024-02-22 05:33] LABS: Alanine Aminotransferase 17 U/L (0-41); Albumin Level 3.4 g/dL (3.5-5.2); Alkaline Phosphatase 75 U/L (40-130); Anion Gap 16.3 (5-19); Aspartate Amino Transferase 21 U/L (0-40); Blood Urea Nitrogen 37 mg/dL (8-23); Calcium 9.1 mg/dL (8.5-10.5); Carbon Dioxide 27 mmol/L (22-29); Chloride 102 mmol/L (98-107); Creatinine Clr Calc Pharmacy 40.0115; Globulin 2.6 g/dL (1.3-4.6); Glucose 85 mg/dL (65-115); Osmolality Calculated 300 mOsm/kg (285-295); Potassium 4.3 mmol/L (3.5-5.1); Sodium 141 mmol/L (136-145); Thyroid Stimulating Hormone 2.84 uIU/mL (0.27-4.20); Total Bilirubin 0.3 mg/dL (0.15-1.2)
--- NOTE | 2024-02-22 06:17 | PHA.VACGOAL ---
Vancomycin Goal - Goal Vancomycin Goal:: 10-15 mg/L Vancomycin Indication:: Other (UTI) - Therapy Current therapy:: Other Antibiotic (Levofloxacin) Day of therpy:: Day [1]of [] . Actual body weight (kg): 67.6 kg - Data Labs: WBC 12.11 10^3/uL (3.29-11.43) H 02/22/24 03:59 RBC 3.27 10^6/uL (3.85-5.65) L 02/22/24 03:59 Hgb 10.80 g/dL (11.27-16.99) L 02/22/24 03:59 Hct 34.4 % (37-53) L 02/22/24 03:59 MCV 105.2 fl (82-101) H 02/22/24 03:59 MCH 33.0 pg (27-33) 02/22/24 03:59 MCHC 31.4 g/dL (30-55) 02/22/24 03:59 RDW 14.2 % (12.1-15.1) 02/22/24 03:59 Sodium 141 mmol/L (136-145) 02/22/24 03:59 Potassium 4.3 mmol/L (3.5-5.1) 02/22/24 03:59 Chloride 102 mmol/L (98-107) 02/22/24 03:59 Carbon Dioxide 27 mmol/L (22-29) 02/22/24 03:59 Anion Gap 16.3 (5-19) 02/22/24 03:59 BUN 37 mg/dL (8-23) H 02/22/24 03:59 Creatinine 1.5 mg/dL (0.7-1.2) H 02/22/24 03:59 GFR Calculation Not Reportable 02/22/24 03:59 Treatment plan:: new consult Regimen:: New start vancomycin for UTI. 1000 mg q24h.
[2024-02-22] MEDS: acetaminophen 500 mg Tablet 1000 MG PO (07:36)
[2024-02-22] MEDS: ipratropium-albuterol 3 mL Neb INHALATION ×3 (09:09→20:58)
[2024-02-22] MEDS: budesonide 0.5 mg/2 mL Neb INHALATION ×2 (09:09→20:58)
[2024-02-22] MEDS: metoprolol tartrate 25 mg Tablet PO ×2 (09:48→20:33)
[2024-02-22] MEDS: TORSEmide 20 mg Tablet 10 MG PO (09:48)
[2024-02-22] MEDS: docusate sodium 100 mg Capsule PO (09:48)
[2024-02-22] MEDS: fluoxetine 20 mg Capsule 60 MG PO (09:48)
[2024-02-22] MEDS: potassium chloride ER 10 mEq Tablet PO ×4 (09:49→23:42)
[2024-02-22] MEDS: BuSPIRONE 10 mg Tablet 5 MG PO (09:49)
[2024-02-22] MEDS: famotidine 20 mg/2 mL INJ IVP ×2 (15:27→23:43)
[2024-02-22] MEDS: LORazepam 2 mg/mL INJ 1 mL 1 MG IVP (15:28)
[2024-02-22] MEDS: enoxaparin 40 mg/0.4 mL Syringe SUBCUT (15:28)
--- NOTE | 2024-02-22 16:20 | PC.NURSE ---
pt has become very confused,combative...insists on leaving hospital.pt's cg called to speak with pt in hopes of settling him down.also in high school social studies tutor talked with pt as well.both state pt has always been alert and oriented.dr corona notified and came to examine pt.security also had to be called due to pt attempting to hit and kick staff and attempting to get out of bed.ativan given as ordered...pt fell asleep
--- NOTE | 2024-02-22 16:56 | PM.PN ---
Subjective Subjective: Seen him at bedside this morning. Denies any new complaints but was not able to eat. Later this afternoon had an episode of agitation, verbal abuse, started hitting the aid the nurses, unable to comprehend. Was pulling on his suprapubic catheter and threatening to pull it out. Also was using inappropriate words for the staff. Was given 1 mg of IV Ativan, which calmed him down and he has been resting well since then. Medications: Reviewed: Yes Vitals/I&O/Wt Last Vital Signs Temp 97.7 F 02/22/24 12:00 Pulse 62 02/22/24 12:22 Resp 18 02/22/24 12:22 BP 140/75 02/22/24 12:00 Pulse Ox 92 02/22/24 12:22 O2 Del Method Nasal Cannula 02/22/24 12:22 O2 Flow Rate 2 02/22/24 12:22 02/22/24 02/22/24 02/22/24 06:59 14:59 22:59 Intake Total 490 / 1410 120 / 120 Output Total 150 / 250 Balance 340 / 1160 120 / 120 Weight last 48 hrs Weight 67.6 kg Weight 64.495 kg Weight 61.235 kg Physical Exam Narrative: He is agitated, confused, verbally abusing and hitting. Wants to get out of bed. Chest clear to auscultation bilaterally Cardiovascular normal heart sounds no murmurs Abdomen soft nontender nondistended normal bowel sounds Extremities no edema noted bilateral lower extremity Data 02/22/24 03:59 02/22/24 03:59 Micro: Microbiology 02/21/24 06:30 Urine Culture - Preliminary Urine,Clean Catch Gram Negative Rods 02/21/24 04:09 Blood Culture - Preliminary Blood 02/21/24 04:37 Blood Culture - Preliminary Blood A&P Assessment and plan (1) UTI (urinary tract infection): (2) Generalized weakness: (3) Atrial fibrillation: (4) COPD (chronic obstructive pulmonary disease): Qualifiers: COPD type: unspecified COPD Qualified Code(s): J44.9 - Chronic obstructive pulmonary disease, unspecified (5) Falls frequently: (6) Multilevel degenerative disc disease: (7) Altered mental status: Plan Doc S Sharon Matthew is a 78 year old male with past medical history of chronic urinary obstruction with suprapubic catheter, atrial fibrillation, stroke, hypertension, COPD, multilevel degenerative disc disease, spinal stenosis presented with complaint of weakness and a fall, abdominal pain, blocked suprapubic catheter and found to have WBC count of 18.5, UA strongly positive. Chest x-ray, CT head, CT AP negative for acute findings CT lumbar spine showed severe spondylosis with severe spinal canal stenosis at L4-L5 Severe bilateral neural foraminal narrowing from L2-L5, findings likely stable as compared to previous. Would need outpatient follow-up with spine surgeon. #Generalized weakness and abdominal pain likely secondary to UTI- Blocked suprapubic catheter replaced in ER UA strongly positive showing urine blood 2+ urine nitrate positive leukocyte esterase 3+, RBC 51-100, WBCs more than 100, urine bacteria 4+ Has history of recurrent UTI in the past Urine cultures reviewed showed Enterobacter and Susan in the past Received IV Zosyn 3.375 g x 1 in ED Will do IV Levaquin 750 mg daily Follow-up urine culture Encourage p.o. fluid intake #A-fib with RVR-resolved, currently in sinus rhythm Continue home medications metoprolol 25 mg twice daily Continue WORKERS COMPENSATION CLAIMS SPECIALIST torsemide and potassium chloride He is not on chronic anticoagulation for A-fib being a fall risk. ECHO 06/15 LV systolic function is normal with EF of 60-65% Trace mitral regurgitation Trace tricuspid regurgitation #COPD-stable Continue nebulizers as needed #Depression-continue WORK[employer] CLAIMS SPECIALIST Depakote and fluoxetine DVT prophylaxis with subcutaneous Lovenox GI prophylaxis with IV Pepcid 20 mg twice daily CODE STATUS discussed with the patient, he is full code. 02/22/24 This afternoon patient was found to be agitated, verbally abusive and hitting. Was given 1 mg of IV Ativan which calmed him down and he has been resting well since then. Symptoms likely due to hospital induced delirium versus dementia with behavioral disturbances. Will continue to monitor. Creatinine trending up to 1.5 likely secondary to poor p.o. intake. Will hold WORK[employer] CLAIMS SPECIALIST torsemide for now Urine culture positive for gram-positive cocci. Continue levofloxacin, IV vancomycin added. Leukocytosis improved to 12.1 Will do IV Ativan 1 mg every 4 hours as needed and IV Haldol 1 mg every 4 hours as needed alternating for agitation. Will need case management consult for discharge planning Attestations Medical Necessity Statement*: He needs continued hospitalization crossing 2 midnights for management of UTI, generalized weakness, monitoring of A-fib, IV antibiotics, PT eval and case management for discharge planning Time Spent in Patient Care: 30 minutes Coding Level of Care Code Critical Care >/= 30 minutes Diagnoses UTI (urinary tract infection) N39.0 Generalized weakness R53.1 Atrial fibrillation I48.91 Chronic obstructive pulmonary disease, unspecified COPD type J44.9 COPD type: unspecified COPD Falls frequently R29.6 Multilevel degenerative disc disease M53.9 Altered mental status R41.82 Time Spent (min) 30
[2024-02-22] MEDS: divalproex ER 500 mg Tablet (24H) PO (20:33)
[2024-02-22] MEDS: VANCOMYCIN ADD-Vantage 1,000 MG in 0.9% NaCl ADD-Vantage 250 ML 250 MG IV (23:43)
[2024-02-23] VITALS (13 sets, daily range): BP systolic 111–160; BP diastolic 64–88; PULSE 56–73; RESP 16–25; TEMP 36.4–37.2; O2SAT 90–97
[2024-02-23 04:28] LABS: Basophils % 0.2 %; Eosinophils # 0.2 10^3/uL (0.0-0.8); Eosinophils % 1.6 %; Hematocrit 33.4 % (37-53); Lymphocytes # 1.7 10^3/uL (0.8-4.8); Lymphocytes % 14.5 %; Mean Corpuscular HGB Conc 32.3 g/dL (30-55); Mean Corpuscular Hemoglobin 33.3 pg (27-33); Mean Corpuscular Volume 103.1 fl (82-101); Mean Platelet Volume 10.6 fL (7.4-10.4); Monocytes # 1.2 10^3/uL (0.2-0.9); Monocytes % 10.7 %; Neutrophils # 8.26 10^3/uL (1.8-7.7); Neutrophils % 72.6 %; Nucleated Red Blood Cells % 0 %; Platelet Count 279 10^3/cmm (157-399); Red Blood Count 3.24 10^6/uL (3.85-5.65); Red Cell Distribution Width 13.8 % (12.1-15.1); White Blood Count 11.36 10^3/uL (3.29-11.43)
[2024-02-23 04:52] LABS: Anion Gap 13.2 (5-19); Blood Urea Nitrogen 36 mg/dL (8-23); Calcium 8.9 mg/dL (8.5-10.5); Carbon Dioxide 29 mmol/L (22-29); Chloride 104 mmol/L (98-107); Creatinine Clr Calc Pharmacy 50.0144; Glucose 94 mg/dL (65-115); Osmolality Calculated 302 mOsm/kg (285-295); Potassium 4.2 mmol/L (3.5-5.1); Sodium 142 mmol/L (136-145)
[2024-02-23] MEDS: BuSPIRONE 10 mg Tablet 5 MG PO ×2 (05:11→11:29)
[2024-02-23] MEDS: acetaminophen 500 mg Tablet 1000 MG PO ×2 (05:11→11:29)
[2024-02-23 06:32] LABS: Glucose Point of Care 101 mg/dL (70-110)
[2024-02-23] MEDS: LORazepam 2 mg/mL INJ 1 mL 1 MG IVP ×3 (07:21→17:58)
[2024-02-23] MEDS: ipratropium-albuterol 3 mL Neb INHALATION ×4 (07:37→20:55)
[2024-02-23] MEDS: budesonide 0.5 mg/2 mL Neb INHALATION ×2 (07:37→20:55)
[2024-02-23] MEDS: haloperidol inj 5 mg/mL INJ 1 mL 1 MG IVP ×3 (08:45→19:50)
--- NOTE | 2024-02-23 09:44 | PC.NURSE ---
Patient both verbally and physically agressive with nurse and aide. Patient tries to pull out his suprapubic catheter, disconnecting it from its tubing. He also broke the stat lock on his leg. Stat lock replaced and haldol given as patient was combative, trying to both hit and bite both the nurse and the aide. Dr Cedillo notified and she agreed to restraints if needed. Patient is currently resting after haldol. Pulse 64, oxygen at 92, resp rate at 19 and bp is 158/73. No agressive behavior at this time. Aide and nurse were able to clean patient from incontinent bowel movement.
[2024-02-23] MEDS: potassium chloride ER 10 mEq Tablet PO ×2 (09:57→17:20)
[2024-02-23] MEDS: fluoxetine 20 mg Capsule 60 MG PO (09:57)
[2024-02-23] MEDS: enoxaparin 40 mg/0.4 mL Syringe SUBCUT (11:36)
[2024-02-23] MEDS: famotidine 20 mg/2 mL INJ IVP (11:36)
--- NOTE | 2024-02-23 14:07 | PM.PN ---
Subjective Subjective: Seen him at bedside this morning. Was calm and comfortable, not in acute distress. But later became agitated and was given IV Ativan 1 mg followed by Haldol. Will transfer him to medical floor for further management Medications: Reviewed: Yes Vitals/I&O/Wt Last Vital Signs Temp 97.9 F 02/23/24 12:00 Pulse 70 02/23/24 12:26 Resp 16 02/23/24 12:26 BP 149/64 02/23/24 12:00 Pulse Ox 93 02/23/24 12:26 O2 Del Method Room Air 02/23/24 12:26 O2 Flow Rate 2 02/23/24 12:00 02/22/24 02/23/24 02/23/24 22:59 06:59 14:59 Intake Total 100 / 220 250 / 470 Output Total 1300 / 1300 Balance -1200 / -1080 250 / -830 Weight last 48 hrs Weight 67.6 kg Weight 67.6 kg Physical Exam Narrative: He is agitated, confused. Wants to get out of bed. Chest clear to auscultation bilaterally Cardiovascular normal heart sounds no murmurs Abdomen soft nontender nondistended normal bowel sounds Extremities no edema noted bilateral lower extremity Data 02/23/24 03:51 02/23/24 03:51 Micro: Microbiology 02/21/24 06:30 Urine Culture - Final Urine,Clean Catch Proteus mirabilis esbl A&P Assessment and plan (1) UTI (urinary tract infection): (2) Generalized weakness: (3) Atrial fibrillation: (4) COPD (chronic obstructive pulmonary disease): Qualifiers: COPD type: unspecified COPD Qualified Code(s): J44.9 - Chronic obstructive pulmonary disease, unspecified (5) Falls frequently: (6) Multilevel degenerative disc disease: (7) Altered mental status: Plan Doc S Sharon Matthew is a 78 year old male with past medical history of chronic urinary obstruction with suprapubic catheter, atrial fibrillation, stroke, hypertension, COPD, multilevel degenerative disc disease, spinal stenosis presented with complaint of weakness and a fall, abdominal pain, blocked suprapubic catheter and found to have WBC count of 18.5, UA strongly positive. Chest x-ray, CT head, CT AP negative for acute findings CT lumbar spine showed severe spondylosis with severe spinal canal stenosis at L4-L5 Severe bilateral neural foraminal narrowing from L2-L5, findings likely stable as compared to previous. Would need outpatient follow-up with spine surgeon. #Generalized weakness and abdominal pain likely secondary to UTI- Blocked suprapubic catheter replaced in ER UA strongly positive showing urine blood 2+ urine nitrate positive leukocyte esterase 3+, RBC 51-100, WBCs more than 100, urine bacteria 4+ Has history of recurrent UTI in the past Urine cultures reviewed showed Enterobacter and Susan in the past Received IV Zosyn 3.375 g x 1 in ED Will do IV Levaquin 750 mg daily Follow-up urine culture Encourage p.o. 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 02/22/24 This afternoon patient was found to be agitated, verbally abusive and hitting. Was given 1 mg of IV Ativan which calmed him down and he has been resting well since then. Symptoms likely due to hospital induced delirium versus dementia with behavioral disturbances. Will continue to monitor. Creatinine trending up to 1.5 likely secondary to poor p.o. intake. Will hold HOMICIDE SQUAD SERGEANT torsemide for now Urine culture positive for gram-positive cocci. Continue levofloxacin, IV vancomycin added. Leukocytosis improved to 12.1 Will do IV Ativan 1 mg every 4 hours as needed and IV Haldol 1 mg every 4 hours as needed alternating for agitation. Will need case management consult for discharge planning 02/23/24 He continues to be confused and agitated. Has been on IV Ativan and Haldol as needed. He came from home on admission but would need case management for discharge planning to a subacute or assisted living facility. Has urine culture showing gram-negative rods and bulk blood culture showing gram-positive rods hence on IV vancomycin and levofloxacin. Follow-up final cultures and the need for ID consult for discharge antibiotics. Leukocytosis resolved, creatinine improved to 1.2. Attestations Medical Necessity Statement*: He needs continued hospitalization crossing 2 midnights for management of UTI, generalized weakness, monitoring of A-fib, IV antibiotics, PT eval and case management for discharge planning Time Spent in Patient Care: 20 minutes Coding Level of Care Code Acute Code for Chg Fwd Diagnoses UTI (urinary tract infection) N39.0 Generalized weakness R53.1 Atrial fibrillation I48.91 Chronic obstructive pulmonary disease, unspecified COPD type J44.9 COPD type: unspecified COPD Falls frequently R29.6 Multilevel degenerative disc disease M53.9 Altered mental status R41.82 Time Spent (min) 20
--- NOTE | 2024-02-23 17:23 | PC.NURSE ---
Nurse gave patient his nightly potassium, metoprolol, and tylenol for back pain. Medication was given with applesauce to try and prevent patient from choking, patient spit the applesauce and pills out across his bed and then pulled the covers over his head and said no. I then asked them if he would take them with water and he said jocelyn no.
--- NOTE | 2024-02-23 17:37 | PC.NURSE ---
Patient's left arm peripheral IV infiltrated, midline order placed.
--- NOTE | 2024-02-23 18:49 | PC.NURSE ---
patient refused placement of both midline and ultrasound guided IV. Order for midline canceled.
--- NOTE | 2024-02-23 18:51 | PICC.NOTE ---
Midline ordered for pt due to no peripheral access. Pt confused and combative. Unable to comprehend when given education regarding midline. States, No when asked if this nurse could place a midline or peripheral IV. Pt bedside nurse, Myra, informed of pt refusal. Dr. Cedillo notified. Due to safety concerns regarding pt combativeness and inability to remain still during sterile procedure, midline cancelled.
--- NOTE | 2024-02-23 19:57 | PC.NURSE ---
Contacted Dr Cedillo for order to change haldol and ativan to IM since patient has no IV access, 1950 dose of haldol given IM
[2024-02-23] MEDS: LORazepam 2 mg/mL INJ 1 mL 1 MG IM (22:05)
[2024-02-24] VITALS (12 sets, daily range): BP systolic 143–158; BP diastolic 74–85; PULSE 64–86; RESP 16–28; TEMP 36.5–37; O2SAT 92–97
[2024-02-24] MEDS: haloperidol inj 5 mg/mL INJ 1 mL 1 MG IM ×2 (00:19→05:35)
[2024-02-24] MEDS: LORazepam 2 mg/mL INJ 1 mL 1 MG IM (02:29)
[2024-02-24] MEDS: budesonide 0.5 mg/2 mL Neb INHALATION ×2 (07:45→20:22)
[2024-02-24] MEDS: ipratropium-albuterol 3 mL Neb INHALATION ×4 (07:45→20:22)
[2024-02-24] MEDS: metoprolol tartrate 25 mg Tablet PO ×2 (11:34→17:23)
[2024-02-24] MEDS: fluoxetine 20 mg Capsule 60 MG PO (11:35)
[2024-02-24] MEDS: docusate sodium 100 mg Capsule PO ×2 (11:35→17:22)
[2024-02-24] MEDS: potassium chloride ER 10 mEq Tablet PO ×3 (11:35→14:41)
[2024-02-24] MEDS: linezolid 600 mg Tablet PO (11:37)
[2024-02-24] MEDS: enoxaparin 40 mg/0.4 mL Syringe SUBCUT (11:37)
[2024-02-24] MEDS: acetaminophen 500 mg Tablet 1000 MG PO (14:41)
--- NOTE | 2024-02-24 15:14 | PC.NURSE ---
transfer to room 279-1 via bed.report given to jess gann.pt remains confused..pulls at catheter and telemetry leads,calls out.did eat breakfast and some lunch...and took pills...i did given 1700 potassium tab early,as pt cooperative at this time.
--- NOTE | 2024-02-24 15:46 | P.PN_ITS ---
Subjective 2 Subjective: Seen him at bedside this morning. Seems to be calm, less agitated. Pulled out IVs, refusing further IV insertion. Has been refusing food and medications. Bedside nurse giving medications mixed with applesauce and he is spitting it out. Medications: Reviewed: Yes Vitals/I&O/Wt Last Vital Signs Temp 98.0 F 02/24/24 15:39 Pulse 71 02/24/24 15:40 Resp 18 02/24/24 15:40 BP 149/74 02/24/24 15:39 Pulse Ox 92 02/24/24 15:40 O2 Del Method Room Air 02/24/24 15:40 O2 Flow Rate 1 02/24/24 10:56 02/24/24 02/24/24 02/24/24 06:59 14:59 22:59 Intake Total 100 / 220 240 / 240 Output Total 400 / 1450 Balance -300 / -1230 240 / 240 Weight last 48 hrs Weight 67.6 kg Weight 67.6 kg Physical Exam 2 Narrative: He is agitated, confused. Wants to get out of bed. Chest clear to auscultation bilaterally Cardiovascular normal heart sounds no murmurs Abdomen soft nontender nondistended normal bowel sounds Extremities no edema noted bilateral lower extremity Data 02/23/24 03:51 02/23/24 03:51 Micro: Microbiology 02/21/24 04:09 Blood Culture - Preliminary Blood 02/21/24 04:37 Blood Culture - Preliminary Blood Staphylococcus epidermidis Staphylococcus sp coag neg#2 Staphylococcus sp coag neg#3 Streptococcus species 02/21/24 06:30 Urine Culture - Final Urine,Clean Catch Proteus mirabilis esbl A&P Assessment and plan (1) UTI (urinary tract infection): (2) Generalized weakness: (3) Atrial fibrillation: (4) COPD (chronic obstructive pulmonary disease): Qualifiers: COPD type: unspecified COPD Qualified Code(s): J44.9 - Chronic obstructive pulmonary disease, unspecified (5) Falls frequently: (6) Multilevel degenerative disc disease: (7) Altered mental status: Plan Doc S Sharon Matthew is a 78 year old male with past medical history of chronic urinary obstruction with suprapubic catheter, atrial fibrillation, stroke, hypertension, COPD, multilevel degenerative disc disease, spinal stenosis presented with complaint of weakness and a fall, abdominal pain, blocked suprapubic catheter and found to have WBC count of 18.5, UA strongly positive. Chest x-ray, CT head, CT AP negative for acute findings CT lumbar spine showed severe spondylosis with severe spinal canal stenosis at L4-L5 Severe bilateral neural foraminal narrowing from L2-L5, findings likely stable as compared to previous. Would need outpatient follow-up with spine surgeon. #Generalized weakness and abdominal pain likely secondary to UTI- Blocked suprapubic catheter replaced in ER UA strongly positive showing urine blood 2+ urine nitrate positive leukocyte esterase 3+, RBC 51-100, WBCs more than 100, urine bacteria 4+ Has history of recurrent UTI in the past Urine cultures reviewed showed Enterobacter and Susan in the past Received IV Zosyn 3.375 g x 1 in ED Will do IV Levaquin 750 mg daily Follow-up urine culture Encourage p.o. 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 02/22/24 This afternoon patient was found to be agitated, verbally abusive and hitting. Was given 1 mg of IV Ativan which calmed him down and he has been resting well since then. Symptoms likely due to hospital induced delirium versus dementia with behavioral disturbances. Will continue to monitor. Creatinine trending up to 1.5 likely secondary to poor p.o. intake. 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 Continue levofloxacin, IV vancomycin added. Leukocytosis improved to 12.1 Will do IV Ativan 1 mg every 4 hours as needed and IV Haldol 1 mg every 4 hours as needed alternating for agitation. Will need case management consult for discharge planning 02/23/24 He continues to be confused and agitated. Has been on IV Ativan and Haldol as needed. He came from home on admission but would need case management for discharge planning to a subacute or assisted living facility. Has urine culture showing gram-negative rods and bulk blood culture showing gram-positive rods hence on IV vancomycin and levofloxacin. Follow-up final cultures and the need for ID consult for discharge antibiotics. Leukocytosis resolved, creatinine improved to 1.2. 02/24/24 He has been hemodynamically stable but agitated and confused has been needing as needed IV Ativan. He has been refusing IVs, spitting out medications and refusing food. Needs to follow-up with case management for safe discharge planning. He was living at home alone with a home service advisor coming in for few hours. Attestations 2 Medical Necessity Statement*: Waiting for case management for discharge planning Time Spent in Patient Care: 10 minutes Coding Level of Care Code Acute Code for [facility] Fwd Diagnoses UTI (urinary tract infection) N39.0 Generalized weakness R53.1 Atrial fibrillation I48.91 Chronic obstructive pulmonary disease, unspecified COPD type J44.9 COPD type: unspecified COPD Falls frequently R29.6 Multilevel degenerative disc disease M53.9 Altered mental status R41.82 Time Spent (min) 10
[2024-02-25] VITALS (13 sets, daily range): BP systolic 151–167; BP diastolic 71–81; PULSE 68–81; RESP 17–32; TEMP 36.4–38.8; O2SAT 93–98
--- NOTE | 2024-02-25 | CTR_ITS ---
PROCEDURE INFORMATION: Exam: CT Head Without Contrast Exam date and time: 02/25/2024 3:11 PM Age: 78 years old Clinical indication: Altered mental status/memory loss; Confusion or disorientation; Additional info: AMS TECHNIQUE: Imaging protocol: Computed tomography of the head without contrast. Radiation optimization: All CT scans at this facility use at least one of these dose optimization techniques: automated exposure control; mA and/or kV adjustment per patient size (includes targeted exams where dose is matched to clinical indication); or iterative reconstruction. COMPARISON: CT head wo con* [id number] 02/21/2024 4:23 AM RADIATION DOSE METRICS: Total DLP (mGy-cm): 1141.38 FINDINGS: Brain: No hemorrhage. No edema. Moderate diffuse cerebral atrophy and sequela of chronic small vessel ischemic disease. No mass effect. Cerebral ventricles: No ventriculomegaly. Paranasal sinuses: Visualized sinuses are unremarkable. No fluid levels. Mastoid air cells: Visualized mastoid air cells are well aerated. Bones: Unremarkable. No acute fracture. Soft tissues: Unremarkable. CT/CT head wo con* [id number] IMPRESSION: No acute intracranial abnormality. Dictated By: Andrew Pichardo DO Signed By: Andrew Pichardo DO Signed Date/Time: 02/28/24 0720 DD/ [facility] head wo con* [id number]
--- NOTE | 2024-02-25 06:20 | PC.NURSE ---
Addendum entered by Christina Nascimento RN 02/25/24 06:25: This RN attempted to give pt oral medications crushed in applesauce and pt just held the bite in his mouth and started spitting them out. Original Note: At the beginning of this RNs shift, pt was resting comfortably in bed. Pt did wake up a couple times by kicking his legs and rolling from side to side but eventually went back to sleep. Around 0415 pt started to wake up and become agitated. Pt wanted to get out of bed This feels like shelter RN educated pt that it was not safe to get up at this time and offered to reposition pt. This pt and his roommate started mumbling/yelling back and forth for about an hour. This RN attempted to redirect and was unsuccessful. This RN repositioned pt and put a noise machine on to help relax the pt. Pt started to calm down around 0600 but still wants to go home. WCTM til the end of this RNs shift.
[2024-02-25] MEDS: docusate sodium 100 mg Capsule PO ×2 (08:04→17:21)
[2024-02-25] MEDS: potassium chloride ER 10 mEq Tablet PO ×2 (08:04→17:21)
[2024-02-25] MEDS: ciprofloxacin 500 mg Tablet PO (08:04)
[2024-02-25] MEDS: pantoprazole DR 40 mg Tablet PO (08:04)
[2024-02-25] MEDS: fluoxetine 20 mg Capsule 60 MG PO (08:04)
[2024-02-25] MEDS: ipratropium-albuterol 3 mL Neb INHALATION ×4 (08:25→20:39)
[2024-02-25] MEDS: budesonide 0.5 mg/2 mL Neb INHALATION ×2 (08:25→20:39)
[2024-02-25] MEDS: metoprolol tartrate 25 mg Tablet PO ×2 (08:27→17:21)
[2024-02-25] MEDS: enoxaparin 40 mg/0.4 mL Syringe SUBCUT (11:53)
[2024-02-25] MEDS: acetaminophen 500 mg Tablet 1000 MG PO (11:54)
[2024-02-25] MEDS: linezolid 600 mg Tablet PO (11:54)
--- NOTE | 2024-02-25 13:10 | PM.PN ---
Subjective Subjective: seen this morning pt laying in bed geting duoneb tx at this time. sitter at bedside not answering questions, Patient is confused at this time. Vitals/I&O/Wt Last Vital Signs Temp 98.1 F 02/25/24 11:51 Pulse 68 02/25/24 11:51 Resp 19 H 02/25/24 11:51 BP 151/71 02/25/24 11:51 Pulse Ox 96 02/25/24 11:51 O2 Del Method Nasal Cannula 02/25/24 11:51 O2 Flow Rate 2 02/25/24 11:16 02/24/24 02/25/24 02/25/24 22:59 06:59 14:59 Intake Total 50 / 290 0 / 290 120 / 120 Output Total 375 / 375 200 / 575 Balance -325 / -85 -200 / -285 120 / 120 Weight last 48 hrs Weight 60.872 kg Weight 67.6 kg Physical Exam Narrative: Patient is confused. Sitting up in bed with his mouth open. Not answering any questions at this time. Chest clear to auscultation bilaterally Cardiovascular normal heart sounds no murmurs Abdomen soft nontender nondistended normal bowel sounds Extremities no edema noted bilateral lower extremity Data 02/23/24 03:51 02/23/24 03:51 A&P Assessment and plan (1) UTI (urinary tract infection): (2) Generalized weakness: (3) Atrial fibrillation: (4) COPD (chronic obstructive pulmonary disease): Qualifiers: COPD type: unspecified COPD Qualified Code(s): J44.9 - Chronic obstructive pulmonary disease, unspecified (5) Falls frequently: (6) Multilevel degenerative disc disease: (7) Altered mental status: Plan Doc S Sharon Matthew is a 78 year old male with past medical history of chronic urinary obstruction with suprapubic catheter, atrial fibrillation, stroke, hypertension, COPD, multilevel degenerative disc disease, spinal stenosis presented with complaint of weakness and a fall, abdominal pain, blocked suprapubic catheter and found to have WBC count of 18.5, UA strongly positive. Chest x-ray, CT head, CT AP negative for acute findings CT lumbar spine showed severe spondylosis with severe spinal canal stenosis at L4-L5 Severe bilateral neural foraminal narrowing from L2-L5, findings likely stable as compared to previous. Would need outpatient follow-up with spine surgeon. #Generalized weakness and abdominal pain likely secondary to UTI- Blocked suprapubic catheter replaced in ER UA strongly positive showing urine blood 2+ urine nitrate positive leukocyte esterase 3+, RBC 51-100, WBCs more than 100, urine bacteria 4+ Has history of recurrent UTI in the past Urine cultures reviewed showed Enterobacter and Susan in the past Received IV Zosyn 3.375 g x 1 in ED Will do IV Levaquin 750 mg daily Follow-up urine culture Encourage p.o. 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 02/22/24 This afternoon patient was found to be agitated, verbally abusive and hitting. Was given 1 mg of IV Ativan which calmed him down and he has been resting well since then. Symptoms likely due to hospital induced delirium versus dementia with behavioral disturbances. Will continue to monitor. Creatinine trending up to 1.5 likely secondary to poor p.o. intake. 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 Continue levofloxacin, IV vancomycin added. Leukocytosis improved to 12.1 Will do IV Ativan 1 mg every 4 hours as needed and IV Haldol 1 mg every 4 hours as needed alternating for agitation. Will need case management consult for discharge planning 02/23/24 He continues to be confused and agitated. Has been on IV Ativan and Haldol as needed. He came from home on admission but would need case management for discharge planning to a subacute or assisted living facility. Has urine culture showing gram-negative rods and bulk blood culture showing gram-positive rods hence on IV vancomycin and levofloxacin. Follow-up final cultures and the need for ID consult for discharge antibiotics. Leukocytosis resolved, creatinine improved to 1.2. 02/24/24 He has been hemodynamically stable but agitated and confused has been needing as needed IV Ativan. He has been refusing IVs, spitting out medications and refusing food. Needs to follow-up with case management for safe discharge planning. He was living at home alone with a personal care home administrator coming in for few hours. 02/25/2024 Patient had 1 mg of Ativan given at 3 AM. Too sleepy in the morning. I will discontinue further Ativan at this time. ? He has not really talked to me or answer any questions. Did not work with physical therapy either was able to sit on his edge of the bed however is a maximum assist at this time. Has been refusing food and medications upon reviewing previous notes. ? Will attempt to reach to family to gather what his baseline is. Patient is unsafe to go home at this time. He may perhaps qualify for [facility] facility however he is not participating with physical therapy. He may have to go to a dementia unit. ? Continue to treat with Zyvox and ciprofloxacin at this time. ? He is has had a previous stroke in the past. ? Continue to treat for UTI. ? CT head negative at admission. CT abdomen pelvis shows no acute findings done at admission. ? Will repeat CT head today. Attestations Medical Necessity Statement*: Requires continued hospitalization. Unsafe to go home at this time. Altered mental status. Diagnoses UTI (urinary tract infection) N39.0 Generalized weakness R53.1 Atrial fibrillation I48.91 Chronic obstructive pulmonary disease, unspecified COPD type J44.9 COPD type: unspecified COPD Falls frequently R29.6 Multilevel degenerative disc disease M53.9 Altered mental status R41.82
--- NOTE | 2024-02-25 13:22 | CTR_ITS ---
PROCEDURE INFORMATION: Exam: CT Head Without Contrast Exam date and time: 02/25/2024 3:11 PM Age: 78 years old Clinical indication: Altered mental status/memory loss; Confusion or disorientation; Additional info: AMS TECHNIQUE: Imaging protocol: Computed tomography of the head without contrast. Radiation optimization: All CT scans at this facility use at least one of these dose optimization techniques: automated exposure control; mA and/or kV adjustment per patient size (includes targeted exams where dose is matched to clinical indication); or iterative reconstruction. COMPARISON: CT head wo con* [id number] 02/21/2024 4:23 AM RADIATION DOSE METRICS: Total DLP (mGy-cm): 1141.38 FINDINGS: Brain: No hemorrhage. No edema. Moderate diffuse cerebral atrophy and sequela of chronic small vessel ischemic disease. No mass effect. Cerebral ventricles: No ventriculomegaly. Paranasal sinuses: Visualized sinuses are unremarkable. No fluid levels. Mastoid air cells: Visualized mastoid air cells are well aerated. Bones: Unremarkable. No acute fracture. Soft tissues: Unremarkable.
--- NOTE | 2024-02-25 14:14 | PC.SOCIAL ---
IMM Update pg 2 of IMM Updated and reviewed w/ patients caregiver, Copy left @ bedside and copy dated, initialed and placed in chart.
[2024-02-26] VITALS (13 sets, daily range): BP systolic 91–169; BP diastolic 60–79; PULSE 63–138; RESP 18–24; TEMP 36.9–38.3; O2SAT 93–100
[2024-02-26] MEDS: lanolin oint 7 gm 1 APPLIC TOPICAL (00:01)
[2024-02-26 06:31] LABS: Basophils % 0.1 %; Hematocrit 34.7 % (37-53); Lymphocytes # 1.3 10^3/uL (0.8-4.8); Lymphocytes % 10.2 %; Mean Corpuscular Hemoglobin 34.7 pg (27-33); Mean Corpuscular Volume 108.4 fl (82-101); Monocytes # 1.7 10^3/uL (0.2-0.9); Monocytes % 13.6 %; Neutrophils # 9.53 10^3/uL (1.8-7.7); Neutrophils % 75.4 %; Nucleated Red Blood Cells % 0 %; Platelet Count 269 10^3/cmm (157-399); Red Cell Distribution Width 14.3 % (12.1-15.1); White Blood Count 12.64 10^3/uL (3.29-11.43)
[2024-02-26 06:52] LABS: Anion Gap 18.6 (5-19); Blood Urea Nitrogen 42 mg/dL (8-23); Calcium 9.1 mg/dL (8.5-10.5); Carbon Dioxide 24 mmol/L (22-29); Chloride 118 mmol/L (98-107); Creatinine Clr Calc Pharmacy 35.3274; Glucose 110 mg/dL (65-115); Magnesium 2.4 mg/dL (1.7-2.3); Osmolality Calculated 335 mOsm/kg (285-295); Potassium 3.6 mmol/L (3.5-5.1); Sodium 157 mmol/L (136-145)
[2024-02-26] MEDS: ipratropium-albuterol 3 mL Neb INHALATION ×4 (08:10→21:38)
[2024-02-26] MEDS: budesonide 0.5 mg/2 mL Neb INHALATION ×2 (08:10→21:38)
[2024-02-26] MEDS: pantoprazole DR 40 mg Tablet PO (08:23)
[2024-02-26] MEDS: ciprofloxacin 500 mg Tablet PO (08:23)
[2024-02-26] MEDS: potassium chloride ER 10 mEq Tablet PO (08:23)
[2024-02-26] MEDS: fluoxetine 20 mg Capsule 60 MG PO (08:23)
[2024-02-26] MEDS: docusate sodium 100 mg Capsule PO (08:24)
[2024-02-26] MEDS: metoprolol tartrate 25 mg Tablet PO (08:28)
[2024-02-26] MEDS: dextrose 5% 1,000 ML 75 ML IV ×2 (09:50→20:12)
[2024-02-26] MEDS: linezolid 600 mg Tablet PO (11:29)
[2024-02-26] MEDS: enoxaparin 40 mg/0.4 mL Syringe SUBCUT (11:29)
--- NOTE | 2024-02-26 12:10 | P.PN_ITS ---
Subjective 2 Subjective: Seen today patient had a fever overnight up to 102. Sodium 157 this morning. Discussed with caregiver at bedside who has been with him for 20 years. She says at baseline he can go around in a wheelchair. He has had numerous UTIs due to suprapubic catheter in the past. CT head negative. Vitals/I&O/Wt Last Vital Signs Temp 98.4 F 02/26/24 12:09 Pulse 66 02/26/24 12:09 Resp 18 02/26/24 12:09 BP 135/79 02/26/24 12:09 Pulse Ox 93 02/26/24 12:09 O2 Del Method Nasal Cannula 02/26/24 12:09 O2 Flow Rate 2 02/26/24 11:17 02/25/24 02/26/24 02/26/24 22:59 06:59 14:59 Intake Total 120 / 360 0 / 360 120 / 120 Output Total 400 / 400 200 / 600 Balance -280 / -40 -200 / -240 120 / 120 Weight last 48 hrs Weight 58.377 kg Weight 60.872 kg Physical Exam 2 Narrative: Patient is confused. Altered. Chest clear to auscultation bilaterally Cardiovascular normal heart sounds no murmurs Abdomen soft nontender nondistended normal bowel sounds Extremities no edema noted bilateral lower extremity Data 02/26/24 05:56 02/26/24 05:56 A&P Assessment and plan (1) UTI (urinary tract infection): (2) Generalized weakness: (3) Atrial fibrillation: (4) COPD (chronic obstructive pulmonary disease): Qualifiers: COPD type: unspecified COPD Qualified Code(s): J44.9 - Chronic obstructive pulmonary disease, unspecified (5) Falls frequently: (6) Multilevel degenerative disc disease: (7) Altered mental status: Plan Doc S Sharon Matthew is a 78 year old male with past medical history of chronic urinary obstruction with suprapubic catheter, atrial fibrillation, stroke, hypertension, COPD, multilevel degenerative disc disease, spinal stenosis presented with complaint of weakness and a fall, abdominal pain, blocked suprapubic catheter and found to have WBC count of 18.5, UA strongly positive. Chest x-ray, CT head, CT AP negative for acute findings CT lumbar spine showed severe spondylosis with severe spinal canal stenosis at L4-L5 Severe bilateral neural foraminal narrowing from L2-L5, findings likely stable as compared to previous. Would need outpatient follow-up with spine surgeon. #Generalized weakness and abdominal pain likely secondary to UTI- Blocked suprapubic catheter replaced in ER UA strongly positive showing urine blood 2+ urine nitrate positive leukocyte esterase 3+, RBC 51-100, WBCs more than 100, urine bacteria 4+ Has history of recurrent UTI in the past Urine cultures reviewed showed Enterobacter and Susan in the past Received IV Zosyn 3.375 g x 1 in ED Will do IV Levaquin 750 mg daily Follow-up urine culture Encourage p.o. fluid intake #A-fib with RVR-resolved, currently in sinus rhythm Continue home medications metoprolol 25 mg twice daily Continue GRAPHICS PRODUCTION SPECIALIST torsemide and potassium chloride He is not on chronic anticoagulation for A-fib being a fall risk. ECHO 06/15 LV systolic function is normal with EF of 60-65% Trace mitral regurgitation Trace tricuspid regurgitation #COPD-stable Continue nebulizers as needed #Depression-continue GRAPHICS PRODUCTION SPECIALIST Depakote and fluoxetine DVT prophylaxis with subcutaneous Lovenox GI prophylaxis with IV Pepcid 20 mg twice daily CODE STATUS discussed with the patient, he is full code. 02/22/24 This afternoon patient was found to be agitated, verbally abusive and hitting. Was given 1 mg of IV Ativan which calmed him down and he has been resting well since then. Symptoms likely due to hospital induced delirium versus dementia with behavioral disturbances. Will continue to monitor. Creatinine trending up to 1.5 likely secondary to poor p.o. intake. Will hold GRAPHICS PRODUCTION SPECIALIST torsemide for now Urine culture positive for gram-positive cocci. Continue levofloxacin, IV vancomycin added. Leukocytosis improved to 12.1 Will do IV Ativan 1 mg every 4 hours as needed and IV Haldol 1 mg every 4 hours as needed alternating for agitation. Will need case management consult for discharge planning 02/23/24 He continues to be confused and agitated. Has been on IV Ativan and Haldol as needed. He came from home on admission but would need case management for discharge planning to a subacute or assisted living facility. Has urine culture showing gram-negative rods and bulk blood culture showing gram-positive rods hence on IV vancomycin and levofloxacin. Follow-up final cultures and the need for ID consult for discharge antibiotics. Leukocytosis resolved, creatinine improved to 1.2. 02/24/24 He has been hemodynamically stable but agitated and confused has been needing as needed IV Ativan. He has been refusing IVs, spitting out medications and refusing food. Needs to follow-up with case management for safe discharge planning. He was living at home alone with a tourist home keeper coming in for few hours. 02/25/2024 Patient had 1 mg of Ativan given at 3 AM. Too sleepy in the morning. I will discontinue further Ativan at this time. ? He has not really talked to me or answer any questions. Did not work with physical therapy either was able to sit on his edge of the bed however is a maximum assist at this time. Has been refusing food and medications upon reviewing previous notes. ? Will attempt to reach to family to gather what his baseline is. Patient is unsafe to go home at this time. He may perhaps qualify for half-way facility however he is not participating with physical therapy. He may have to go to a dementia unit. ? Continue to treat with Zyvox and ciprofloxacin at this time. ? He is has had a previous stroke in the past. ? Continue to treat for UTI. ? CT head negative at admission. CT abdomen pelvis shows no acute findings done at admission. ? Will repeat CT head today. 02/26/2024 CT head rule out stroke ? Hypernatremia. Sodium 157 ? Placed on D5 water 75 cc/h ? Has been spiking fevers overnight. Will repeat blood cultures today ? Switch to IV Zyvox and IV meropenem. ? Continue medical management at this time. Continue Depakote at bedtime. ? Recheck labs daily CBC CMP magnesium. -Discussed with nursing staff, caregiver at bedside. Attestations 2 Medical Necessity Statement*: Requires continued hospitalization. Unsafe to go home at this time. Altered mental status. Diagnoses UTI (urinary tract infection) N39.0 Generalized weakness R53.1 Atrial fibrillation I48.91 Chronic obstructive pulmonary disease, unspecified COPD type J44.9 COPD type: unspecified COPD Falls frequently R29.6 Multilevel degenerative disc disease M53.9 Altered mental status R41.82
[2024-02-26] MEDS: meropenem 1,000 mg SDV 1000 MG IVP ×2 (13:04→20:00)
[2024-02-26 13:27] LABS: Procalcitonin 0.28 ng/mL (0-0.5)
--- NOTE | 2024-02-26 15:47 | PC.OT ---
OT TX WITHHELD SECONDARY TO DR REQUEST IN HEART TO HEART ROUNDS.
[2024-02-26] MEDS: linezolid premix 600 MG/300 ML PREMIX 300 MG IV (22:42)
--- NOTE | 2024-02-26 23:35 | ECG_ITS ---
[facility] Date: 2024-02-26 Pat Name: Michael Herrera Department: Room: 279 Gender: Male Trim Master Operator: : 1945 Requested By: Traci Ott Order Number: [id number] Vadim MD: Kody Galindo M.D. Measurements Intervals [place] Rate: 131 P: 0 MT: 0 QRS: 2 QRSD: 89 T: 87 QT: 343 QTc: 507 Interpretive Statements ATRIAL FIBRILLATION WITH RAPID VENTRICULAR RESPONSE ST DEPRESSION, CONSIDER SUBENDOCARDIAL INJURY [0.1+ mV ST DEPRESSION] Compared to ECG 02/21/2024 06:46:38 ST (T wave) deviation now present Sinus rhythm no longer present Left anterior fascicular block no longer present Myocardial infarct finding no longer present Electronically Signed On 02-27-2024 19:25:51 PAINTER DRUM by Kody Galindo M.D. [id number]
[2024-02-27] VITALS (38 sets, daily range): BP systolic 86–129; BP diastolic 50–98; PULSE 56–146; RESP 16–42; TEMP 36.6–37.6; O2SAT 91–100; BMI 19.1
[2024-02-27] MEDS: amiodarone 150 MG/100 ML PREMIX 400 MG IV ×2 (00:16→13:02)
--- NOTE | 2024-02-27 00:25 | PC.NURSE ---
Addendum entered by Kiesha Rose RN 02/28/24 00:23: On receiving, patient had amio bolus running in left forearm IV that had infiltrated. Medication was stopped immediately. IV was removed with catheter intact. Wrapped area, elevated forearm and applied warm compress. Original Note: Patient was transported to CSU room 112-2 @ 00:25
--- NOTE | 2024-02-27 00:54 | PC.NURSE ---
This nurse took over care of patient at 1900. At 2019 this nurse completed the patient's physical assessment. At that time the patient presented with a RR of 30, but did not show any other signs of respiratory distress and was saturating well on 2L nasal cannula. Auscultation revealed mostly clear, though diminished breath sounds. The patient also had clear, pale yellow urine in his luna catheter bag at that time. BP 169/69, HR 69, axillary temp 100.2F. He was only responsive to light sternal rub at that time, and only responded with mumbled grunts without opening his eyes. Because of this, 2100 PO meds were held and the doctor was notified. This nurse continued to round each hour and the patient remained the same. At 2325 Rene, PRESS SUPERVISOR told this nurse that the patient's blood pressure had dropped to 91/60, and his heart rate was 111. This nurse went to the room to reassess patient and place the patient on telemetry. He had developed inspiratory wheezing, his heart rate was in the 140s, and the urine in his luna catheter bag was turning a light darrin color with sediment. This nurse got an EKG which showed afib with RVR and called Dr. Ott at 2340 to notify him of the patient's change in status. Dr. Ott ordered a 150mg amiodorone IV bolus and requested to send the patient to CSU. This nurse then started a new 22g IV in the patient's left forearm, which had good blood return and smooth flush. The patient's belongings were packed up, patient was placed on a transport monitor, and the amiodorone bolus was started in the new IV line as patient was transported to CSU 112-2 at 0025.
[2024-02-27] MEDS: meropenem 1,000 mg SDV 1000 MG IVP ×2 (05:29→17:02)
[2024-02-27 06:20] LABS: Basophils % 0.1 %; Eosinophils # 0.1 10^3/uL (0.0-0.8); Eosinophils % 0.4 %; Hematocrit 33.9 % (37-53); Lymphocytes # 1.4 10^3/uL (0.8-4.8); Lymphocytes % 8.5 %; Mean Corpuscular HGB Conc 31.9 g/dL (30-55); Mean Corpuscular Volume 106.6 fl (82-101); Mean Platelet Volume 11.3 fL (7.4-10.4); Monocytes # 1.4 10^3/uL (0.2-0.9); Monocytes % 8.9 %; Neutrophils # 13.16 10^3/uL (1.8-7.7); Neutrophils % 81.7 %; Nucleated Red Blood Cells % 0 %; Platelet Count 226 10^3/cmm (157-399); Red Blood Count 3.18 10^6/uL (3.85-5.65); Red Cell Distribution Width 14.3 % (12.1-15.1); White Blood Count 16.12 10^3/uL (3.29-11.43)
[2024-02-27 06:44] LABS: Blood Urea Nitrogen 33 mg/dL (8-23); Calcium 8.6 mg/dL (8.5-10.5); Carbon Dioxide 24 mmol/L (22-29); Chloride 112 mmol/L (98-107); Creatinine Clr Calc Pharmacy 42.6435; Glucose 124 mg/dL (65-115); Magnesium 2.3 mg/dL (1.7-2.3); Osmolality Calculated 317 mOsm/kg (285-295); Sodium 149 mmol/L (136-145)
[2024-02-27 06:45] LABS: Anion Gap 16.3 (5-19); Potassium 3.3 mmol/L (3.5-5.1)
[2024-02-27 07:03] LABS: Slide Review Slide Review Perform
[2024-02-27] MEDS: pantoprazole 40 mg SDV IVP (07:35)
--- NOTE | 2024-02-27 07:55 | PC.NURSE ---
Notified contact in chart of patient being transferred to another floor.
[2024-02-27] MEDS: budesonide 0.5 mg/2 mL Neb INHALATION ×2 (08:44→20:25)
[2024-02-27] MEDS: ipratropium-albuterol 3 mL Neb INHALATION (08:44)
[2024-02-27] MEDS: potassium chloride ER 10 mEq Tablet PO ×4 (09:09→20:00)
[2024-02-27] MEDS: fluoxetine 20 mg Capsule 60 MG PO (09:09)
[2024-02-27] MEDS: docusate sodium 100 mg Capsule PO ×2 (09:09→17:02)
[2024-02-27] MEDS: metoprolol tartrate 25 mg Tablet PO (09:09)
[2024-02-27] MEDS: potassium chloride premix 100 ML 25 MEQ IV (09:10)
[2024-02-27] MEDS: dextrose 5% 1,000 ML 75 ML IV (10:05)
--- NOTE | 2024-02-27 10:24 | XR_ITS ---
WS: [id number] XR chest 1V portable [id number] REASON FOR EXAM: elevated hr rate and respiration FINDINGS: The chest is essentially unchanged compared to 02/21/2024. Significant tortuosity and ectasia of the thoracic aorta with normal heart size. Calcified granulomas disease in both hemithoraces. No acute pulmonary parenchymal or pleural abnormality. XR/XR chest 1V portable [id number] IMPRESSION: Stable chest without acute abnormality.
[2024-02-27] MEDS: sodium chloride 0.9% 500 ML IV (10:46)
[2024-02-27] MEDS: enoxaparin 40 mg/0.4 mL Syringe SUBCUT (10:56)
[2024-02-27] MEDS: linezolid premix 600 MG/300 ML PREMIX 300 MG IV ×2 (10:58→23:57)
[2024-02-27 11:10] LABS: ABG PCO2 35.3 mmHg (35-45); ABG PH Result 7.44 (7.35-7.45); Arterial Blood Gas Hematocrit 33.7 % (42-52); Base Excess ABG 0.1 mmol/L (-2.0-2.0); Blood Gas Operator Identificat glc; Blood Gas Sample Site Brachial, left; Blood Gas Sample Type Arterial; Carboxyhemoglobin 0.7 %THgb (0.4-20.1); HCO3 ABG 23.9 mmol/L (22-26); HGB O2 Sat 97.1 % (95-100); Ionized Calcium Level - ABG 1.2 mmol/L (1.1-1.4); Methemoglobin 0.3 % (0.4-1.5); Oxygen Device NC; Oxygen Saturation ABG 98.1; PO2 ABG 93.6 mmHg (80.0-100.0); PO2 FiO2 Ratio Arterial Blood 334; Potassium Level - ABG 3.4 mmol/L (3.5-5.0)
--- NOTE | 2024-02-27 11:21 | PC.OT ---
OTR CHECK COMPLETED. PATIENT GOALS REMAIN APPROPRIATE; CONTINUE TREATMENT PER POC. OT TREATMENT ATTEMPTED. PATIENT STATES NO MULTIPLE TIMES WHEN ASKED IF HE WOULD LIKE TO BE SHAVED AND TO WASH HIS FACE AND HANDS.
[2024-02-27] MEDS: norepinephrine 4 MG/250 ML BAG 7.5 MG IV (11:22)
--- NOTE | 2024-02-27 11:39 | PC.NURSE ---
Arrived from [facility]
--- NOTE | 2024-02-27 12:32 | PC.NURSE ---
care delayed due to computers being down
--- NOTE | 2024-02-27 14:37 | PM.PN ---
Subjective Subjective: Patient seen this morning awake alert and somewhat talking and answering questions. Was able to swallow his tablets and take some pudding. He was smiling this morning when seen. Currently on amiodarone drip secondary to A-fib with RVR that he went into overnight. I got a call from the nurse later on close to 11:00 that patient was tachypneic hypotensive and had worsening tachycardia. Patient had recently eaten. There is a question he may have aspirated. Went to evaluate patient at bedside. He was tachypneic and was using accessory muscles to breathe. Hypotensive with systolic blood pressure down to 77. 500 cc normal saline bolus given. Chest x-ray reviewed no evidence of acute infiltrate or pulmonary edema at this time. Lungs clear to auscultation. Fluids ordered. Patient transferred to ICU. Continue nasal cannula at this time and requested suctioning. Upon arriving to ICU patient was given amiodarone bolus additionally and amiodarone drip was continued. Patient's condition did improve and did not require BiPAP. On 4 L nasal cannula. Around 11:00 he also had a temperature of 100.4. Patient is being covered with antibiotics at this time. He was seen by speech therapy who have recommended n.p.o. status. He does have coughing episodes while after oral consumption. There is possibility of pharyngeal residue or possibly reflux. We will be pursuing a modified barium swallow. Potassium 3.3 this morning. IV potassium has been ordered. Patient be seen in ICU later on and at this point is much more stable. Sodium 149 this morning. Patient on D5 water 75 cc/h. Vitals/I&O/Wt Last Vital Signs Temp 98.2 F 02/27/24 08:00 Pulse 117 H 02/27/24 12:30 Resp 20 H 02/27/24 12:30 BP 102/64 02/27/24 12:30 Pulse Ox 97 02/27/24 12:30 O2 Del Method Nasal Cannula 02/27/24 12:00 O2 Flow Rate 4 02/27/24 12:00 02/26/24 02/27/24 02/27/24 22:59 06:59 14:59 Intake Total 777.5 / 897.5 400 / 1297.5 1514.75 / 1514.75 Output Total 350 / 350 Balance 427.5 / 547.5 400 / 947.5 1514.75 / 1514.75 Weight last 48 hrs Weight 60.4 kg Weight 58.377 kg Physical Exam Narrative: Patient is alert and awake. Initially smiling and answering some questions however later when seen during decompensation episode tachypneic with accessory muscle use however maintaining saturations. Hypotensive at that time as well. Please see note above. Chest clear to auscultation bilaterally Cardiovascular normal heart sounds no murmurs Abdomen soft nontender nondistended normal bowel sounds Extremities no edema noted bilateral lower extremity Data 02/27/24 06:15 02/27/24 06:15 Micro: Microbiology 02/26/24 12:41 Blood Culture - Preliminary Blood NEGATIVE TO DATE 02/26/24 12:40 Blood Culture - Preliminary Blood NEGATIVE TO DATE A&P Assessment and plan (1) UTI (urinary tract infection): (2) Generalized weakness: (3) Atrial fibrillation: (4) COPD (chronic obstructive pulmonary disease): Qualifiers: COPD type: unspecified COPD Qualified Code(s): J44.9 - Chronic obstructive pulmonary disease, unspecified (5) Falls frequently: (6) Multilevel degenerative disc disease: (7) Altered mental status: Plan Doc S Sharon Matthew is a 78 year old male with past medical history of chronic urinary obstruction with suprapubic catheter, atrial fibrillation, stroke, hypertension, COPD, multilevel degenerative disc disease, spinal stenosis presented with complaint of weakness and a fall, abdominal pain, blocked suprapubic catheter and found to have WBC count of 18.5, UA strongly positive. Chest x-ray, CT head, CT AP negative for acute findings CT lumbar spine showed severe spondylosis with severe spinal canal stenosis at L4-L5 Severe bilateral neural foraminal narrowing from L2-L5, findings likely stable as compared to previous. Would need outpatient follow-up with spine surgeon. #Generalized weakness and abdominal pain likely secondary to UTI- Blocked suprapubic catheter replaced in ER UA strongly positive showing urine blood 2+ urine nitrate positive leukocyte esterase 3+, RBC 51-100, WBCs more than 100, urine bacteria 4+ Has history of recurrent UTI in the past Urine cultures reviewed showed Enterobacter and Susan in the past Received IV Zosyn 3.375 g x 1 in ED Will do IV Levaquin 750 mg daily Follow-up urine culture Encourage p.o. fluid intake #A-fib with RVR-resolved, currently in sinus rhythm Continue home medications metoprolol 25 mg twice daily Continue BUILDING MECHANIC torsemide and potassium chloride He is not on chronic anticoagulation for A-fib being a fall risk. ECHO 06/15 LV systolic function is normal with EF of 60-65% Trace mitral regurgitation Trace tricuspid regurgitation #COPD-stable Continue nebulizers as needed #Depression-continue BUILDING MECHANIC Depakote and fluoxetine DVT prophylaxis with subcutaneous Lovenox GI prophylaxis with IV Pepcid 20 mg twice daily CODE STATUS discussed with the patient, he is full code. 02/22/24 This afternoon patient was found to be agitated, verbally abusive and hitting. Was given 1 mg of IV Ativan which calmed him down and he has been resting well since then. Symptoms likely due to hospital induced delirium versus dementia with behavioral disturbances. Will continue to monitor. Creatinine trending up to 1.5 likely secondary to poor p.o. intake. Will hold BUILDING MECHANIC torsemide for now Urine culture positive for gram-positive cocci. Continue levofloxacin, IV vancomycin added. Leukocytosis improved to 12.1 Will do IV Ativan 1 mg every 4 hours as needed and IV Haldol 1 mg every 4 hours as needed alternating for agitation. Will need case management consult for discharge planning 02/23/24 He continues to be confused and agitated. Has been on IV Ativan and Haldol as needed. He came from home on admission but would need case management for discharge planning to a subacute or assisted living facility. Has urine culture showing gram-negative rods and bulk blood culture showing gram-positive rods hence on IV vancomycin and levofloxacin. Follow-up final cultures and the need for ID consult for discharge antibiotics. Leukocytosis resolved, creatinine improved to 1.2. 02/24/24 He has been hemodynamically stable but agitated and confused has been needing as needed IV Ativan. He has been refusing IVs, spitting out medications and refusing food. Needs to follow-up with case management for safe discharge planning. He was living at home alone with a home security professional coming in for few hours. 02/25/2024 Patient had 1 mg of Ativan given at 3 AM. Too sleepy in the morning. I will discontinue further Ativan at this time. ? He has not really talked to me or answer any questions. Did not work with physical therapy either was able to sit on his edge of the bed however is a maximum assist at this time. Has been refusing food and medications upon reviewing previous notes. ? Will attempt to reach to family to gather what his baseline is. Patient is unsafe to go home at this time. He may perhaps qualify for assisted facility however he is not participating with physical therapy. He may have to go to a dementia unit. ? Continue to treat with Zyvox and ciprofloxacin at this time. ? He is has had a previous stroke in the past. ? Continue to treat for UTI. ? CT head negative at admission. CT abdomen pelvis shows no acute findings done at admission. ? Will repeat CT head today. 02/26/2024 CT head rule out stroke ? Hypernatremia. Sodium 157 ? Placed on D5 water 75 cc/h ? Has been spiking fevers overnight. Will repeat blood cultures today ? Switch to IV Zyvox and IV meropenem. ? Continue medical management at this time. Continue Depakote at bedtime. ? Recheck labs daily CBC CMP magnesium. -Discussed with nursing staff, caregiver at bedside. 02/27/2024 I got a call from the nurse later on close to 11:00 that patient was tachypneic hypotensive and had worsening tachycardia. Patient had recently eaten. There is a question he may have aspirated. Went to evaluate patient at bedside. He was tachypneic and was using accessory muscles to breathe. Hypotensive with systolic blood pressure down to 77. 500 cc normal saline bolus given. Chest x-ray reviewed no evidence of acute infiltrate or pulmonary edema at this time. Lungs clear to auscultation. Fluids ordered. Patient transferred to ICU. Continue nasal cannula at this time and requested suctioning. Upon arriving to ICU patient was given amiodarone bolus additionally and amiodarone drip was continued. Patient's condition did improve and did not require BiPAP. On 4 L nasal cannula. Around 11:00 he also had a temperature of 100.4. Patient is being covered with antibiotics at this time. He was seen by speech therapy who have recommended n.p.o. status. He does have coughing episodes while after oral consumption. There is possibility of pharyngeal residue or possibly reflux. We will be pursuing a modified barium swallow. Potassium 3.3 this morning. IV potassium has been ordered. Continue D5 water at 75 cc/h ? Repeat blood cultures negative so far ? Continue IV Zyvox IV meropenem. ? Continue Depakote at bedtime ? Discussed with nursing staff ? Discussed with speech therapist. ? Plan for modified barium swallow. ? Continue to monitor in ICU today. Keep patient n.p.o. status. ? Continue amiodarone drip. Will transition to oral amnio 400 daily after 24 hours. ? Hemoglobin 10.8, stable. Will place on Eliquis 5 twice daily at discharge. for now add therapeutic lovenox ? Placed on thiamine, folic acid. ? Will check phosphorus. ? Continue Levophed and wean off as able. Attestations Medical Necessity Statement*: Requires continued ICU stay for aspiration event acute hypotension requiring Levophed. He will be having a modified barium swallow going forward. Continue IV antibiotics at this time. Critical Care Time: The high probability of a clinically significant, sudden or life threatening deterioration of the patient's [respiratory, cardiovascular] system(s) required my full and direct attention, intervention and personal management. The critical care time is as shown. This time is in addition to time spent performing any reported procedures but includes the following: [x] Data and vital sign review and interpretation [x] Patient assessment, examination and intervention [x] Documentation [x] Medication orders and management Critical Care Time (min): 70 Coding Level of Care Code Acute Code for Chg Fwd Diagnoses UTI (urinary tract infection) N39.0 Generalized weakness R53.1 Atrial fibrillation I48.91 Chronic obstructive pulmonary disease, unspecified COPD type J44.9 COPD type: unspecified COPD Falls frequently R29.6 Multilevel degenerative disc disease M53.9 Altered mental status R41.82
--- NOTE | 2024-02-27 15:18 | PC.SOCIAL ---
IMM Updated Updated pt's caregiver on IMM. No questions voiced. Provided pt a copy. Initialed, dated, & timed copy in chart.
--- NOTE | 2024-02-27 15:20 | ECG_ITS ---
[facility] Test Date: 2024-02-27 Pat Name: Michael Herrera Department: Room: ICU03 Gender: Male Slackline Operator: : 1945 Requested By: Romy Clifton Order Number: [id number] Vadim MD: Kody Galindo M.D. Measurements Intervals [place] Rate: 105 P: 0 [place]: 0 QRS: 50 QRSD: 84 T: 91 QT: 375 QTc: 498 Interpretive Statements ATRIAL FIBRILLATION WITH RAPID VENTRICULAR RESPONSE NONSPECIFIC T-WAVE ABNORMALITY ABNORMAL RHYTHM ECG Compared to ECG 02/26/2024 23:35:46 T-wave abnormality now present ST (T wave) deviation no longer present Electronically Signed On 02-27-2024 19:25:30 FINISHING MACHINE OPERATOR AUTOMATIC by Kody Galindo M.D. [email or web address]
--- NOTE | 2024-02-27 16:21 | PC.NURSE ---
Patient refusing lovenox and blood draws, Dr. Clifton notified, friend on chart notified and talked to patient on phone patient still refusing
--- NOTE | 2024-02-27 16:57 | PC.NURSE ---
patient stated he's okay taking medicine he doesn't want to be poked with a needle for anything
--- NOTE | 2024-02-27 17:28 | ECG_ITS ---
[facility] Test Date: 2024-02-27 Pat Name: Michael Herrera Department: Room: ICU03 Gender: Male Honing Job Setter: : 1945 Requested By: Romy Clifton Order Number: [id number] Vadim MD: Kody Galindo M.D. Measurements Intervals [place] Rate: 60 P: 57 [place]: 174 QRS: 62 QRSD: 90 T: 84 QT: 338 QTc: 339 Interpretive Statements SINUS RHYTHM WITH OCCASIONAL SUPRAVENTRICULAR PREMATURE COMPLEXES Compared to ECG 02/27/2024 15:20:03 Atrial fibrillation no longer present T-wave abnormality no longer present Electronically Signed On 02-27-2024 19:34:07 ROENTGENOLOGY TEACHER by Kody Galindo M.D. [id number]
[2024-02-27 19:11] LABS: Troponin(5th) Baseline 57 ng/L (0-15)
[2024-02-27] MEDS: valproic acid 250 mg/5 mL UDC 500 MG PO (20:00)
--- NOTE | 2024-02-27 20:56 | ECG_ITS ---
[employer] Test Date: 2024-02-27 Pat Name: Michael Herrera Department: Room: ICU03 Gender: Male Mortuary Beautician: : 1945 Requested By: Romy Clifton Order Number: [id number] Vadim MD: Bc Juarez M.D. Measurements Intervals [place] Rate: 57 P: 20 ME: 178 QRS: 49 QRSD: 88 T: 84 QT: 459 QTc: 450 Interpretive Statements SINUS BRADYCARDIA POSSIBLE INFERIOR MYOCARDIAL INFARCTION , PROBABLY OLD [30 ms Q WAVE IN II/aVF] Compared to ECG 02/27/2024 17:28:25 Myocardial infarct finding now present Sinus rhythm no longer present Electronically Signed On 02-28-2024 14:50:02 COMMERCIAL CONSTRUCTION PROJECT MANAGER by Bc Juarez M.D. [email or web address]
[2024-02-27 21:05] LABS: Troponin 5 2HR 58.05 ng/L (0-15); Troponin 5 2HR Delta 1.05 ABS# (0-10)
[2024-02-28] VITALS (36 sets, daily range): BP systolic 100–145; BP diastolic 53–82; PULSE 59–82; RESP 16–32; TEMP 36.8–37.4; O2SAT 93–98; BMI 18.5
[2024-02-28 01:03] LABS: Troponin 5 6HR 58.82 ng/L (0-15); Troponin 5 6HR Delta 1.82 ng/L (0-12)
--- NOTE | 2024-02-28 02:37 | PC.NURSE ---
Addendum entered by Dasha Paz RN 02/28/24 02:42: Linezolid was infusing in left wrist IV when infiltrated. Original Note: Pts left wrist IV infiltrated. Pharmacy called. IV removed, dressing applied, arm elevated and cold compress applied per pharmacy instructions.
[2024-02-28] MEDS: enoxaparin 60 mg/0.6 mL Syringe SUBCUT (03:45)
[2024-02-28 04:11] LABS: Basophils % 0.2 %; Eosinophils # 0.5 10^3/uL (0.0-0.8); Eosinophils % 3.4 %; Hematocrit 35.4 % (37-53); Lymphocytes # 1.5 10^3/uL (0.8-4.8); Lymphocytes % 10.2 %; Mean Corpuscular HGB Conc 30.8 g/dL (30-55); Mean Corpuscular Hemoglobin 33.6 pg (27-33); Mean Corpuscular Volume 109.3 fl (82-101); Mean Platelet Volume 11.2 fL (7.4-10.4); Monocytes # 1.1 10^3/uL (0.2-0.9); Monocytes % 7.4 %; Neutrophils # 11.15 10^3/uL (1.8-7.7); Neutrophils % 78.3 %; Nucleated Red Blood Cells % 0 %; Platelet Count 186 10^3/cmm (157-399); Red Blood Count 3.24 10^6/uL (3.85-5.65); White Blood Count 14.25 10^3/uL (3.29-11.43)
[2024-02-28 04:27] LABS: Blood Urea Nitrogen 28 mg/dL (8-23); Calcium 8.7 mg/dL (8.5-10.5); Carbon Dioxide 21 mmol/L (22-29); Chloride 112 mmol/L (98-107); Creatinine Clr Calc Pharmacy 42.6435; Glucose 118 mg/dL (65-115); Magnesium 2.2 mg/dL (1.7-2.3); Osmolality Calculated 309 mOsm/kg (285-295); Phosphorus 2.4 mg/dL (2.5-4.5); Sodium 146 mmol/L (136-145)
[2024-02-28] MEDS: meropenem 1,000 mg SDV 1000 MG IVP ×2 (05:01→17:09)
[2024-02-28] MEDS: budesonide 0.5 mg/2 mL Neb INHALATION ×2 (08:29→20:00)
[2024-02-28] MEDS: linezolid premix 600 MG/300 ML PREMIX 300 MG IV ×2 (10:24→22:41)
[2024-02-28] MEDS: dextrose 5% 1,000 ML 75 ML IV (10:25)
[2024-02-28] MEDS: pantoprazole 40 mg SDV IVP (10:25)
--- NOTE | 2024-02-28 12:25 | PM.PN ---
Subjective Subjective: Seen today. Patient is alert and oriented to self only. Unable to tell me where he is or what is going on. Does not have capacity to make decisions at this time. Vitals/I&O/Wt Last Vital Signs Temp 99.4 F 02/28/24 04:00 Pulse 59 L 02/28/24 12:00 Resp 24 H 02/28/24 12:00 BP 142/79 02/28/24 12:00 Pulse Ox 98 02/28/24 12:00 O2 Del Method Nasal Cannula 02/28/24 08:00 O2 Flow Rate 2 02/28/24 08:00 02/27/24 02/28/24 02/28/24 22:59 06:59 14:59 Intake Total 601.002 / 2115.752 1340 / 3455.752 Output Total 450 / 450 250 / 700 Balance 151.002 / 0979.257 0273 / 2755.752 Weight last 48 hrs Weight 58.5 kg Weight 60.4 kg Physical Exam Narrative: Patient is alert and awake to self. Chest clear to auscultation bilaterally Cardiovascular normal heart sounds no murmurs Abdomen soft nontender nondistended normal bowel sounds Extremities no edema noted bilateral lower extremity Data 02/28/24 03:49 02/28/24 03:49 Micro: Microbiology 02/27/24 04:02 Urine Culture - Preliminary Urine Suprapubic 02/26/24 12:41 Blood Culture - Preliminary Blood NEGATIVE TO DATE 02/26/24 12:40 Blood Culture - Preliminary Blood NEGATIVE TO DATE A&P Assessment and plan (1) UTI (urinary tract infection): (2) Generalized weakness: (3) Atrial fibrillation: (4) COPD (chronic obstructive pulmonary disease): Qualifiers: COPD type: unspecified COPD Qualified Code(s): J44.9 - Chronic obstructive pulmonary disease, unspecified (5) Falls frequently: (6) Multilevel degenerative disc disease: (7) Altered mental status: Plan Doc S Sharon Matthew is a 78 year old male with past medical history of chronic urinary obstruction with suprapubic catheter, atrial fibrillation, stroke, hypertension, COPD, multilevel degenerative disc disease, spinal stenosis presented with complaint of weakness and a fall, abdominal pain, blocked suprapubic catheter and found to have WBC count of 18.5, UA strongly positive. Chest x-ray, CT head, CT AP negative for acute findings CT lumbar spine showed severe spondylosis with severe spinal canal stenosis at L4-L5 Severe bilateral neural foraminal narrowing from L2-L5, findings likely stable as compared to previous. Would need outpatient follow-up with spine surgeon. #Generalized weakness and abdominal pain likely secondary to UTI- Blocked suprapubic catheter replaced in ER UA strongly positive showing urine blood 2+ urine nitrate positive leukocyte esterase 3+, RBC 51-100, WBCs more than 100, urine bacteria 4+ Has history of recurrent UTI in the past Urine cultures reviewed showed Enterobacter and Susan in the past Received IV Zosyn 3.375 g x 1 in ED Will do IV Levaquin 750 mg daily Follow-up urine culture Encourage p.o. fluid intake #A-fib with RVR-resolved, currently in sinus rhythm Continue home medications metoprolol 25 mg twice daily Continue [employer] torsemide and potassium chloride He is not on chronic anticoagulation for A-fib being a fall risk. ECHO 06/15 LV systolic function is normal with EF of 60-65% Trace mitral regurgitation Trace tricuspid regurgitation #COPD-stable Continue nebulizers as needed #Depression-continue [employer] Depakote and fluoxetine DVT prophylaxis with subcutaneous Lovenox GI prophylaxis with IV Pepcid 20 mg twice daily CODE STATUS discussed with the patient, he is full code. 02/22/24 This afternoon patient was found to be agitated, verbally abusive and hitting. Was given 1 mg of IV Ativan which calmed him down and he has been resting well since then. Symptoms likely due to hospital induced delirium versus dementia with behavioral disturbances. Will continue to monitor. Creatinine trending up to 1.5 likely secondary to poor p.o. intake. Will hold [employer] torsemide for now Urine culture positive for gram-positive cocci. Continue levofloxacin, IV vancomycin added. Leukocytosis improved to 12.1 Will do IV Ativan 1 mg every 4 hours as needed and IV Haldol 1 mg every 4 hours as needed alternating for agitation. Will need case management consult for discharge planning 02/23/24 He continues to be confused and agitated. Has been on IV Ativan and Haldol as needed. He came from home on admission but would need case management for discharge planning to a subacute or assisted living facility. Has urine culture showing gram-negative rods and bulk blood culture showing gram-positive rods hence on IV vancomycin and levofloxacin. Follow-up final cultures and the need for ID consult for discharge antibiotics. Leukocytosis resolved, creatinine improved to 1.2. 02/24/24 He has been hemodynamically stable but agitated and confused has been needing as needed IV Ativan. He has been refusing IVs, spitting out medications and refusing food. Needs to follow-up with case management for safe discharge planning. He was living at home alone with a home teaching grades 9 thru 12 teacher coming in for few hours. 02/25/2024 Patient had 1 mg of Ativan given at 3 AM. Too sleepy in the morning. I will discontinue further Ativan at this time. ? He has not really talked to me or answer any questions. Did not work with physical therapy either was able to sit on his edge of the bed however is a maximum assist at this time. Has been refusing food and medications upon reviewing previous notes. ? Will attempt to reach to family to gather what his baseline is. Patient is unsafe to go home at this time. He may perhaps qualify for correction facility however he is not participating with physical therapy. He may have to go to a dementia unit. ? Continue to treat with Zyvox and ciprofloxacin at this time. ? He is has had a previous stroke in the past. ? Continue to treat for UTI. ? CT head negative at admission. CT abdomen pelvis shows no acute findings done at admission. ? Will repeat CT head today. 02/26/2024 CT head rule out stroke ? Hypernatremia. Sodium 157 ? Placed on D5 water 75 cc/h ? Has been spiking fevers overnight. Will repeat blood cultures today ? Switch to IV Zyvox and IV meropenem. ? Continue medical management at this time. Continue Depakote at bedtime. ? Recheck labs daily CBC CMP magnesium. -Discussed with nursing staff, caregiver at bedside. 02/27/2024 I got a call from the nurse later on close to 11:00 that patient was tachypneic hypotensive and had worsening tachycardia. Patient had recently eaten. There is a question he may have aspirated. Went to evaluate patient at bedside. He was tachypneic and was using accessory muscles to breathe. Hypotensive with systolic blood pressure down to 77. 500 cc normal saline bolus given. Chest x-ray reviewed no evidence of acute infiltrate or pulmonary edema at this time. Lungs clear to auscultation. Fluids ordered. Patient transferred to ICU. Continue nasal cannula at this time and requested suctioning. Upon arriving to ICU patient was given amiodarone bolus additionally and amiodarone drip was continued. Patient's condition did improve and did not require BiPAP. On 4 L nasal cannula. Around 11:00 he also had a temperature of 100.4. Patient is being covered with antibiotics at this time. He was seen by speech therapy who have recommended n.p.o. status. He does have coughing episodes while after oral consumption. There is possibility of pharyngeal residue or possibly reflux. We will be pursuing a modified barium swallow. Potassium 3.3 this morning. IV potassium has been ordered. - Continue D5 water at 75 cc/h ? Repeat blood cultures negative so far ? Continue IV Zyvox IV meropenem. ? Continue Depakote at bedtime ? Discussed with nursing staff ? Discussed with speech therapist. ? Plan for modified barium swallow. ? Continue to monitor in ICU today. Keep patient n.p.o. status. ? Continue amiodarone drip. Will transition to oral amnio 400 daily after 24 hours. ? Hemoglobin 10.8, stable. Will place on Eliquis 5 twice daily at discharge. for now add therapeutic lovenox ? Placed on thiamine, folic acid. ? Will check phosphorus. ? Continue Levophed and wean off as able. 02/28/2024 -Seen this morning. Sodium 149. ? Amiodarone drip turned off overnight as patient was becoming bradycardic. ? He is refusing treatment. Refusing IV, medications. ? Delta Trope negative at 6 hours. ? Patient is alert and oriented to self. ? Currently NPO. ? She has refused modified barium swallow this morning. ? Speech therapy to work with patient. ? PT OT ordered. ? Patient is not safe to go home alone. He does have a caregiver that comes 37 hours a week however other than that he is alone rest of the time. He is currently a maximum assist. ? Has severe deconditioning. ? Continue linezolid, meropenem ? Urine culture negative. ? Blood culture pending ? D5 water restarted. ? We will need to set up placement for the patient. Unable to have a goals of care discussion. Patient does not have a DPOA. ? Most likely has hospital-acquired delirium with component of hypernatremia, metabolic encephalopathy. ? Patient is at risk of aspiration. Attestations Medical Necessity Statement*: Altered mental status. Unsafe to go home alone. Diagnoses UTI (urinary tract infection) N39.0 Generalized weakness R53.1 Atrial fibrillation I48.91 Chronic obstructive pulmonary disease, unspecified COPD type J44.9 COPD type: unspecified COPD Falls frequently R29.6 Multilevel degenerative disc disease M53.9 Altered mental status R41.82
--- NOTE | 2024-02-28 22:48 | PC.NURSE ---
patient alert and talking, nurse tried to offer turning in bed and patient stated hell no and when the nurse asked him if he wanted to stay just the way he is in bed he said yes .
[2024-02-29] VITALS (74 sets, daily range): BP systolic 90–150; BP diastolic 41–80; PULSE 57–145; RESP 13–46; TEMP 37.2–38.2; O2SAT 90–100
[2024-02-29] MEDS: dextrose 5% 1,000 ML 75 ML IV (00:58)
[2024-02-29] MEDS: enoxaparin 60 mg/0.6 mL Syringe SUBCUT ×2 (02:58→15:41)
[2024-02-29] MEDS: ipratropium-albuterol 3 mL Neb INHALATION ×2 (03:01→07:52)
--- NOTE | 2024-02-29 03:06 | ECG_ITS ---
[facility]: 2024-02-29 Pat Name: Michael Herrera Department: Room: 279 Gender: Male Envelope Maker: : [id number] Requested By: Gely Payne Order Number: [id number] Vadim MD: Kody Galindo M.D. Measurements Intervals [place] Rate: 138 P: 0 ND: 0 QRS: 29 QRSD: 88 T: 91 QT: 350 QTc: 531 Interpretive Statements ATRIAL FIBRILLATION WITH RAPID VENTRICULAR RESPONSE ST DEPRESSION, CONSIDER SUBENDOCARDIAL INJURY [0.1+ mV ST DEPRESSION] ABNORMAL QRS-T ANGLE [QRS-T AXIS DIFFERENCE > 60] Compared to ECG 02/27/2024 20:29:51 ST (T wave) deviation now present Sinus bradycardia no longer present Myocardial infarct finding no longer present Electronically Signed On 02-29-2024 16:59:29 ELIGIBILITY EXAMINER by Kody Galindo M.D. [email or web address]
--- NOTE | 2024-02-29 03:37 | PC.NURSE ---
patient started coughing continually, and spiked a low grade fever of 100.0, was breathing very heavily, nurse was at his bedside when another nurse came in and stated his heart rate went up very rapidly. an EKG was done and it read he was in AFIB with RVR, his heart rate stayed between 130-150 reaching 177 at one time. in the previous days he was transferred to [facility] for the same reason. at the beginning of shift he was alert and talking to the nurse, he was alert but not oriented. Dr Ott was notified and he ordered for him to receive a amio bolus and drip and to be transferred to ICU. ICU called and report was given to Mallika and patient was transferred.
[2024-02-29] MEDS: amiodarone 150 MG/100 ML PREMIX 400 MG IV (03:45)
--- NOTE | 2024-02-29 04:02 | PC.NURSE ---
Arrival to ICU 3: Pt arrived to ICU 3 @0334 02/29/24 via hospital bed. Continuos cardiac monitoring continued. D5 fluids off on arrival- MAR edited to reflect this. Pt reports no pain at this time.
[2024-02-29] MEDS: meropenem 1,000 mg SDV 1000 MG IVP ×2 (05:02→17:49)
[2024-02-29 05:15] LABS: Anion Gap 14.4 (5-19); Blood Urea Nitrogen 21 mg/dL (8-23); Calcium 8.5 mg/dL (8.5-10.5); Carbon Dioxide 23 mmol/L (22-29); Chloride 105 mmol/L (98-107); Creatinine Clr Calc Pharmacy 45.0568; Glucose 130 mg/dL (65-115); Osmolality Calculated 293 mOsm/kg (285-295); Potassium 3.4 mmol/L (3.5-5.1); Sodium 139 mmol/L (136-145)
[2024-02-29 05:26] LABS: Glucose Point of Care 132 mg/dL (70-110)
[2024-02-29] MEDS: budesonide 0.5 mg/2 mL Neb INHALATION ×2 (07:52→20:49)
--- NOTE | 2024-02-29 08:30 | PC.NURSE ---
Bedside swallowing test done. Pt Unable to tip chin to chest. His mouth was very dry. The first sip he coughed afterwards. Waited 5 minutes and assisted him, to put his head forward more, he was slow swallowing, no coughing noted afterwards. Pills crushed and placed in apple sauce he was able to swallow slowing.
[2024-02-29] MEDS: metoprolol tartrate 25 mg Tablet PO (08:34)
[2024-02-29] MEDS: fluoxetine 20 mg Capsule 60 MG PO (08:34)
[2024-02-29] MEDS: pantoprazole 40 mg SDV IVP (08:35)
[2024-02-29] MEDS: folic acid 1 mg Tablet PO (08:35)
[2024-02-29] MEDS: thiamine 100 mg Tablet PO (08:35)
--- NOTE | 2024-02-29 11:02 | MR_ITS ---
WS: [id number] MRI BRAIN WITHOUT CONTRAST HISTORY: r/o stroke COMPARISON: Head CT 02/25/2024 TECHNIQUE: Diffusion imaging, multiplanar T1, T2 and FLAIR imaging obtained. There is significant motion artifact on numerous sequences. Diffusion sequence appears normal. No area of ischemia. No hemorrhage is identified. Moderate volume loss and atrophy. Extent of small vessel disease and prior infarcts is is limited by the motion. There is moderate small vessel ischemic type change. Ventricles and extra-axial spaces are prominent on the basis of atrophy. No inferior displacement of cerebellar tonsils. C2 anterolisthesis by 5 mm. C3 anterolisthesis by 2 m m. Paranasal sinuses: Mild mucoperiosteal thickening LEFT frontal sinus and ethmoid air cells. No air-fl uid levels. Small mucous retention cyst RIGHT maxillary sinus. Mastoid air cells: Normal. Calvarium and scalp: Intact. MR/MR head wo con* [id number] IMPRESSION: 1. Diffusion imaging is normal. No acute infarct. 2. Significant motion artifact. There is at least moderate small vessel ischem ic disease. No acute infarct or hemorrhage. 3. Moderate atrophy.
--- NOTE | 2024-02-29 11:04 | CTR_ITS ---
PROCEDURE INFORMATION: Exam: CTA Head Without And With Contrast, Arteriography Exam date and time: 02/29/2024 3:11 PM Age: 78 years old Clinical indication: Other: R/O stroke TECHNIQUE: Imaging protocol: Computed tomographic angiography of the head without and with contrast. Exam focused on the arteries. 3D rendering (Not supervised by radiologist): MIP and/or 3D reconstructed images were created by the technologist. Radiation optimization: All CT scans at this facility use at least one of these dose optimization techniques: automated exposure control; mA and/or kV adjustment per patient size (includes targeted exams where dose is matched to clinical indication); or iterative reconstruction. Contrast material: OMNI 350; Contrast volume: 100 ml; Contrast route: INTRAVENOUS (IV); COMPARISON: MR head wo con* [id number] 02/29/2024 2:41 PM RADIATION DOSE METRICS: Total DLP (mGy-cm): 995.22 FINDINGS: ANTERIOR CIRCULATION: Right internal carotid artery: Intracranial segment is patent with no significant stenosis or occlusion. No aneurysm. Atherosclerotic calcifications along the carotid siphon. Right middle cerebral artery: No occlusion or significant stenosis. No aneurysm. Right anterior cerebral artery: No occlusion or significant stenosis. No aneurysm. Left internal carotid artery: Intracranial segment is patent with no significant stenosis. No aneurysm. Atherosclerotic calcifications along the carotid siphon. Left middle cerebral artery: No occlusion or significant stenosis. No aneurysm. Left anterior cerebral artery: No occlusion or significant stenosis. No aneurysm. POSTERIOR CIRCULATION: Right vertebral artery: No occlusion or significant stenosis. No aneurysm. Left vertebral artery: No occlusion or significant stenosis. No aneurysm. Basilar artery: No occlusion or significant stenosis. No aneurysm. Right posterior cerebral artery: No occlusion or significant stenosis. No aneurysm. Persistent right posterior circulation. Left posterior cerebral artery: No occlusion or significant stenosis. No aneurysm. HEAD: Brain: Moderate generalized cortical volume loss is similar to prior. No hemorrhage. Periventricular and subcortical white matter hypodensities likely represent chronic small vessel ischemic changes. No mass effect. Cerebral ventricles: Normal. No ventriculomegaly. Bones: Unremarkable. No acute fracture. Orbital cavities: Bilateral lens replacements. Paranasal sinuses: Mucosal thickening in the left frontal sinus. Left maxillary mucous retention cyst. Small right sphenoid sinus mucous retention cyst. Mastoid air cells: Visualized mastoids are normal. No mastoid effusion. Teeth: Patient is edentulous. Soft tissues: Unremarkable. PROCEDURE INFORMATION: Exam: CTA Neck Without And With Contrast Exam date and time: 02/29/2024 3:11 PM Age: 78 years old Clinical indication: Other: R/O stroke TECHNIQUE: Imaging protocol: Computed tomographic angiography of the neck without and with contrast. Exam focused on the cervical segments of the vasculature. 3D rendering (Not supervised by radiologist): MIP and/or 3D reconstructed images were created by the technologist. Radiation optimization: All CT scans at this facility use at least one of these dose optimization techniques: automated exposure control; mA and/or kV adjustment per patient size (includes targeted exams where dose is matched to clinical indication); or iterative reconstruction. Contrast material: OMNI 350; Contrast volume: 100 ml; Contrast route: INTRAVENOUS (IV); COMPARISON: CT angio chest PE protcl [id number] 05/24/2022 3:50 AM RADIATION DOSE METRICS: Total DLP (mGy-cm): 995.22 FINDINGS: Limitations: Suboptimal image quality due to motion artifact. Right common carotid artery: No stenosis. No dissection or occlusion. Mild atherosclerotic calcifications at the carotid bulb. Right internal carotid artery: No stenosis of the extracranial segment. No dissection or occlusion. Right external carotid artery: No occlusion or stenosis of the origin. Left common carotid artery: No stenosis. No dissection or occlusion. Mild atherosclerotic calcifications of the carotid bulb. Left internal carotid artery: No stenosis of the extracranial segment. No dissection or occlusion. Left external carotid artery: No occlusion or stenosis of the origin. Right vertebral artery: No stenosis. No dissection or occlusion. Left vertebral artery: No stenosis. No dissection or occlusion. Soft tissues: Normal. No significant soft tissue swelling. Bones/joints: No acute fracture. Multilevel degenerative changes of the cervical spine. Slight grade 1 anterolisthesis of C2 on C3 and C3 on C4. Osseous fusion at C5-C6. Multilevel bilateral facet arthropathy. Reversal of cervical lordosis. Lungs: Ground-glass opacities in the right upper lobe may be atelectatic in nature. CT/CT angio headneck* [id number] IMPRESSION: 1. No large vessel occlusion. 2. Unremarkable CT head. Chronic/age-related changes as above. IMPRESSION: No stenosis or occlusion. REFERENCES: NASCET CRITERIA. The degree of stenosis in the cervical segment of the internal carotid artery is based on NASCET criteria. Normal is no stenosis. Mild is less than 50% stenosis. Moderate is 50-69% stenosis. Severe is 70% to 99% stenosis. Total occlusion is no detectable patent lumen.
--- NOTE | 2024-02-29 11:18 | PC.OT ---
Attempted OT treatment session with pt unable to remain awake; will attempt another time.
[2024-02-29] MEDS: linezolid premix 600 MG/300 ML PREMIX 300 MG IV ×2 (11:56→23:38)
--- NOTE | 2024-02-29 12:10 | P.PN_ITS ---
Subjective 2 Subjective: Patient seen this morning. He is confused. Only alerted to self. Does have somewhat of a garbled speech. Also appears deconditioned and weak. On D5 water, sodium is 139. Caregiver at bedside. Nursing staff at bedside, physical therapist at bedside. Patient is a maximum assist at this time. He is not following any commands. Will not squeeze my hand or move his toes. Will not move his right arm at all. Left arm does have some sort of spontaneous movement. Overnight he developed A- fib with RVR) transferred back to ICU. He has been seen by speech therapy multiple times at this time. He is to remain strictly n.p.o. as he is a severe aspiration risk. Vitals/I&O/Wt Last Vital Signs Temp 100.6 F H 02/29/24 08:30 Pulse 129 H 02/29/24 08:30 Resp 27 H 02/29/24 08:30 BP 99/73 02/29/24 08:30 Pulse Ox 96 02/29/24 08:30 O2 Del Method Room Air 02/29/24 08:30 O2 Flow Rate 2 02/29/24 07:52 02/28/24 02/29/24 02/29/24 22:59 06:59 14:59 Intake Total 500 / 500 1595 / 2095 200 / 200 Output Total 500 / 500 Balance 500 / 500 1095 / 1595 200 / 200 Weight last 48 hrs Weight 58.876 kg Weight 58.5 kg Physical Exam 2 Narrative: Patient is alert and awake to self. Confused. Will not follow commands. Chest clear to auscultation bilaterally Cardiovascular normal heart sounds no murmurs Abdomen soft nontender nondistended normal bowel sounds Extremities no edema noted bilateral lower extremity Data 02/28/24 03:49 02/29/24 04:48 Micro: Microbiology 02/27/24 04:02 Urine Culture - Final Urine Suprapubic A&P Assessment and plan (1) UTI (urinary tract infection): (2) Generalized weakness: (3) Atrial fibrillation: (4) COPD (chronic obstructive pulmonary disease): Qualifiers: COPD type: unspecified COPD Qualified Code(s): J44.9 - Chronic obstructive pulmonary disease, unspecified (5) Falls frequently: (6) Multilevel degenerative disc disease: (7) Altered mental status: Plan Doc S Sharon Matthew is a 78 year old male with past medical history of chronic urinary obstruction with suprapubic catheter, atrial fibrillation, stroke, hypertension, COPD, multilevel degenerative disc disease, spinal stenosis presented with complaint of weakness and a fall, abdominal pain, blocked suprapubic catheter and found to have WBC count of 18.5, UA strongly positive. Chest x-ray, CT head, CT AP negative for acute findings CT lumbar spine showed severe spondylosis with severe spinal canal stenosis at L4-L5 Severe bilateral neural foraminal narrowing from L2-L5, findings likely stable as compared to previous. Would need outpatient follow-up with spine surgeon. #Generalized weakness and abdominal pain likely secondary to UTI- Blocked suprapubic catheter replaced in ER UA strongly positive showing urine blood 2+ urine nitrate positive leukocyte esterase 3+, RBC 51-100, WBCs more than 100, urine bacteria 4+ Has history of recurrent UTI in the past Urine cultures reviewed showed Enterobacter and Susan in the past Received IV Zosyn 3.375 g x 1 in ED Will do IV Levaquin 750 mg daily Follow-up urine culture Encourage p.o. fluid intake #A-fib with RVR-resolved, currently in sinus rhythm Continue home medications metoprolol 25 mg twice daily Continue [employer] SERVICE COUN[employer]ERK torsemide and potassium chloride He is not on chronic anticoagulation for A-fib being a fall risk. ECHO 06/15 LV systolic function is normal with EF of 60-65% Trace mitral regurgitation Trace tricuspid regurgitation #COPD-stable Continue nebulizers as needed #Depression-continue [employer]ICE [employer]ERK Depakote and fluoxetine DVT prophylaxis with subcutaneous Lovenox GI prophylaxis with IV Pepcid 20 mg twice daily CODE STATUS discussed with the patient, he is full code. 02/22/24 This afternoon patient was found to be agitated, verbally abusive and hitting. Was given 1 mg of IV Ativan which calmed him down and he has been resting well since then. Symptoms likely due to hospital induced delirium versus dementia with behavioral disturbances. Will continue to monitor. Creatinine trending up to 1.5 likely secondary to poor p.o. intake. Will hold [employer] SERVICE COUNTER [employer]ERK torsemide for now Urine culture positive for gram-positive cocci. Continue levofloxacin, IV vancomycin added. Leukocytosis improved to 12.1 Will do IV Ativan 1 mg every 4 hours as needed and IV Haldol 1 mg every 4 hours as needed alternating for agitation. Will need case management consult for discharge planning 02/23/24 He continues to be confused and agitated. Has been on IV Ativan and Haldol as needed. He came from home on admission but would need case management for discharge planning to a subacute or assisted living facility. Has urine culture showing gram-negative rods and bulk blood culture showing gram-positive rods hence on IV vancomycin and levofloxacin. Follow-up final cultures and the need for ID consult for discharge antibiotics. Leukocytosis resolved, creatinine improved to 1.2. 02/24/24 He has been hemodynamically stable but agitated and confused has been needing as needed IV Ativan. He has been refusing IVs, spitting out medications and refusing food. Needs to follow-up with case management for safe discharge planning. He was living at home alone with a home sales service professional coming in for few hours. 02/25/2024 Patient had 1 mg of Ativan given at 3 AM. Too sleepy in the morning. I will discontinue further Ativan at this time. ? He has not really talked to me or answer any questions. Did not work with physical therapy either was able to sit on his edge of the bed however is a maximum assist at this time. Has been refusing food and medications upon reviewing previous notes. ? Will attempt to reach to family to gather what his baseline is. Patient is unsafe to go home at this time. He may perhaps qualify for residential facility however he is not participating with physical therapy. He may have to go to a dementia unit. ? Continue to treat with Zyvox and ciprofloxacin at this time. ? He is has had a previous stroke in the past. ? Continue to treat for UTI. ? CT head negative at admission. CT abdomen pelvis shows no acute findings done at admission. ? Will repeat CT head today. 02/26/2024 CT head rule out stroke ? Hypernatremia. Sodium 157 ? Placed on D5 water 75 cc/h ? Has been spiking fevers overnight. Will repeat blood cultures today ? Switch to IV Zyvox and IV meropenem. ? Continue medical management at this time. Continue Depakote at bedtime. ? Recheck labs daily CBC CMP magnesium. -Discussed with nursing staff, caregiver at bedside. 02/27/2024 I got a call from the nurse later on close to 11:00 that patient was tachypneic hypotensive and had worsening tachycardia. Patient had recently eaten. There is a question he may have aspirated. Went to evaluate patient at bedside. He was tachypneic and was using accessory muscles to breathe. Hypotensive with systolic blood pressure down to 77. 500 cc normal saline bolus given. Chest x- ray reviewed no evidence of acute infiltrate or pulmonary edema at this time. Lungs clear to auscultation. Fluids ordered. Patient transferred to ICU. Continue nasal cannula at this time and requested suctioning. Upon arriving to ICU patient was given amiodarone bolus additionally and amiodarone drip was continued. Patient's condition did improve and did not require BiPAP. On 4 L nasal cannula. Around 11:00 he also had a temperature of 100.4. Patient is being covered with antibiotics at this time. He was seen by speech therapy who have recommended n.p.o. status. He does have coughing episodes while after oral consumption. There is possibility of pharyngeal residue or possibly reflux. We will be pursuing a modified barium swallow. Potassium 3.3 this morning. IV potassium has been ordered. - Continue D5 water at 75 cc/h ? Repeat blood cultures negative so far ? Continue IV Zyvox IV meropenem. ? Continue Depakote at bedtime ? Discussed with nursing staff ? Discussed with speech therapist. ? Plan for modified barium swallow. ? Continue to monitor in ICU today. Keep patient n.p.o. status. ? Continue amiodarone drip. Will transition to oral amnio 400 daily after 24 hours. ? Hemoglobin 10.8, stable. Will place on Eliquis 5 twice daily at discharge. for now add therapeutic lovenox ? Placed on thiamine, folic acid. ? Will check phosphorus. ? Continue Levophed and wean off as able. 02/28/2024 -Seen this morning. Sodium 149. ? Amiodarone drip turned off overnight as patient was becoming bradycardic. ? He is refusing treatment. Refusing IV, medications. ? [place] negative at 6 hours. ? Patient is alert and oriented to self. ? Currently NPO. ? She has refused modified barium swallow this morning. ? Speech therapy to work with patient. ? PT OT ordered. ? Patient is not safe to go home alone. He does have a caregiver that comes 37 hours a week however other than that he is alone rest of the time. He is currently a maximum assist. ? Has severe deconditioning. ? Continue linezolid, meropenem ? Urine culture negative. ? Blood culture pending ? D5 water restarted. ? We will need to set up placement for the patient. Unable to have a goals of care discussion. Patient does not have a DPOA. ? Most likely has hospital-acquired delirium with component of hypernatremia, metabolic encephalopathy. ? Patient is at risk of aspiration. 02/29/2024 ?No DPOA. ? Caregiver present at bedside. She cannot make medical decisions at this time. Discussed with her regarding pursuing guardianship possibly. track service worker will speak to them. ? Patient refusing treatment at times and at other times taking tablets. ? Currently n.p.o. Is a severe aspiration risk. Speech therapy has evaluated multiple times. ? Patient severely deconditioned and has had a decline since admission. Unsafe to go home alone. ? Not following commands today and has some garbled speech and unable to move bilateral lower extremities and right extremity. Unsure if he cannot move it versus he has had a cerebrovascular event. Does have atrial fibrillation. Is on therapeutic Lovenox at this time as well. We will give Ativan for light sedation and check MRI brain today. Will also produce CTA head and neck to rule out stroke. ? Will have to assess brain imaging going forward patient may need a PEG tube. ? As per caregiver he wanted all life-saving measures if possible. Patient is full code. ? Continue to D5 half-normal saline at 100 cc/h. Will place dietitian consult for PPN temporarily. ?He has been febrile and aspirating. Will order rectal Tylenol ? Continue amiodarone drip. ? Will switch Depakote to IV. ? Continue meropenem, linezolid. ? Continue Protonix 40 IV daily -Discussed with caregiver, nursing staff, pharmacy, social sciences chair Attestations 2 Medical Necessity Statement*: Altered mental status. Unsafe to go home alone. Diagnoses UTI (urinary tract infection) N39.0 Generalized weakness R53.1 Atrial fibrillation I48.91 Chronic obstructive pulmonary disease, unspecified COPD type J44.9 COPD type: unspecified COPD Falls frequently R29.6 Multilevel degenerative disc disease M53.9 Altered mental status R41.82
[2024-02-29] MEDS: lanolin oint 7 gm 1 APPLIC TOPICAL ×2 (13:15→22:52)
[2024-02-29] MEDS: dextrose 5%-sod chloride 0.45% 1,000 ML 75 ML IV (13:16)
[2024-02-29] MEDS: morphine 4 mg/mL SDV 1 mL 2 MG IVP (14:05)
[2024-02-29] MEDS: LORazepam 2 mg/mL INJ 1 mL 1 MG IVP (14:05)
--- NOTE | 2024-02-29 14:36 | PC.SOCIAL ---
IMM Updated Updated pt's caregivers on IMM. No questions voiced. Provided pt a copy. Initialed, dated, & timed copy in chart.
[2024-02-29] MEDS: multivitamin inj 10 ML in AA-Dex 4.25%-5% w/Lytes 1,000 ML 23 ML IV (15:41)
[2024-02-29] MEDS: iohexol 350 mg/mL 500 mL Btl (per mL) IV (15:47)
[2024-02-29] MEDS: potassium phosphate (mEq K) 40 MEQ in sodium chloride 0.9% (100 ml) 100 ML 27.25 MEQ IV (16:30)
--- NOTE | 2024-02-29 18:06 | PC.NURSE ---
Shift summary: Pt has rested in be throughout the shift. He is very stiff and difficult to move extremities. His right arm causes him pain when repositioned. His oriented to self. Bedside swallow test done at first he failed. Second sip and crushed applesauce, no coughing noted Speech therapy evaluated, he is probably aspirating. All evening PO meds held due to this. Elodia is aware. Due to his decreased mentation and difficultly moving limbs, CTA and MRI completed this shift. He was premedicated with Ativan and Morphine for testing. His Afib converted to Sinus rhythm/bradycardia shortly after 1100, and has remained in that rhythm. He was started on OON and fat emulsions this afternoon. Potassium phosphate replacement IV admin. He has been febrile entire shift, grater than 100. Output of 270 ml of yellow urine noted from Supra pubic cath.
[2024-02-29 21:36] LABS: Glucose Point of Care 144 mg/dL (70-110)
[2024-02-29] MEDS: valproic acid inj 250 MG in sodium chloride 0.9% 50 ML 55 MG IV (22:36)
[2024-02-29 23:57] LABS: Glucose Point of Care 139 mg/dL (70-110)
[2024-03-01] VITALS (55 sets, daily range): BP systolic 77–138; BP diastolic 54–80; PULSE 59–157; RESP 20–38; TEMP 36.7–38.8; O2SAT 93–100
--- NOTE | 2024-03-01 00:19 | PC.NURSE ---
Pain: Pt is unable to communicate pain. FLACC pain scale used.
[2024-03-01] MEDS: dextrose 5%-sod chloride 0.45% 1,000 ML 75 ML IV (02:20)
[2024-03-01] MEDS: enoxaparin 60 mg/0.6 mL Syringe SUBCUT ×2 (02:56→14:57)
[2024-03-01 04:09] LABS: Glucose Point of Care 124 mg/dL (70-110)
[2024-03-01] MEDS: acetaminophen 650 mg Supp PR ×2 (04:21→20:24)
[2024-03-01] MEDS: lanolin oint 7 gm 1 APPLIC TOPICAL (04:25)
[2024-03-01 04:46] LABS: Basophils % 0.1 %; Eosinophils # 0.2 10^3/uL (0.0-0.8); Eosinophils % 1.1 %; Hematocrit 30.5 % (37-53); Lymphocytes # 1.3 10^3/uL (0.8-4.8); Lymphocytes % 8.1 %; Mean Corpuscular HGB Conc 33.1 g/dL (30-55); Mean Corpuscular Hemoglobin 34.1 pg (27-33); Mean Platelet Volume 11.9 fL (7.4-10.4); Monocytes # 1.3 10^3/uL (0.2-0.9); Monocytes % 7.9 %; Neutrophils # 13.62 10^3/uL (1.8-7.7); Neutrophils % 82.1 %; Nucleated Red Blood Cells % 0 %; Platelet Count 156 10^3/cmm (157-399); Red Blood Count 2.96 10^6/uL (3.85-5.65); Red Cell Distribution Width 13.2 % (12.1-15.1); White Blood Count 16.57 10^3/uL (3.29-11.43)
[2024-03-01] MEDS: meropenem 1,000 mg SDV 1000 MG IVP ×2 (04:54→17:28)
[2024-03-01 05:06] LABS: Anion Gap 13.8 (5-19); Blood Urea Nitrogen 20 mg/dL (8-23); Calcium 8.4 mg/dL (8.5-10.5); Carbon Dioxide 24 mmol/L (22-29); Chloride 103 mmol/L (98-107); Creatinine Clr Calc Pharmacy 49.8811; Glucose 104 mg/dL (65-115); Magnesium 1.9 mg/dL (1.7-2.3); Osmolality Calculated 287 mOsm/kg (285-295); Phosphorus 3.3 mg/dL (2.5-4.5); Potassium 3.8 mmol/L (3.5-5.1); Sodium 137 mmol/L (136-145)
[2024-03-01] MEDS: budesonide 0.5 mg/2 mL Neb INHALATION ×2 (07:42→20:28)
[2024-03-01] MEDS: ipratropium-albuterol 3 mL Neb INHALATION (07:42)
[2024-03-01 07:54] LABS: Glucose Point of Care 131 mg/dL (70-110)
[2024-03-01] MEDS: pantoprazole 40 mg SDV IVP (08:52)
[2024-03-01] MEDS: valproic acid inj 250 MG in sodium chloride 0.9% 50 ML 55 MG IV ×2 (08:52→21:27)
[2024-03-01 12:03] LABS: Glucose Point of Care 130 mg/dL (70-110)
[2024-03-01] MEDS: linezolid premix 600 MG/300 ML PREMIX 300 MG IV ×2 (12:29→22:28)
[2024-03-01] MEDS: morphine 4 mg/mL SDV 1 mL 2 MG IVP ×3 (12:43→23:31)
[2024-03-01] MEDS: lidocaine 5% Patch 1 PATCH TOPICAL (12:46)
--- NOTE | 2024-03-01 13:53 | PM.PN ---
Subjective Subjective: Seen this morning. Patient is awake alert and able to talk better compared to yesterday. Discussed with him this morning and asked where he was. He did not answer that however did say the following to me: Will you quit with all this bullshit you guys are doing , I explained to him that we had to be able to have a conversation and I needed to assess his capacity to decide disposition. He then stated: Tell you what I have a better idea..... Fuck off Speech is clear compared to yesterday. Not so much garbled. MRI did rule out stroke. PPN started. Electrolytes repleted. Patient still not wanting to move his extremities. Does complain of pain over right ribs. Tender to palpation. Reproducible to palpation. Morphine was ordered. Also complains of pain in right shoulder area. Patient did sustain a fall prior to arrival to hospital. Additionally he stated that he was hungry. Was febrile yesterday low-grade fever. Afebrile since overnight. Vitals/I&O/Wt Last Vital Signs Temp 98.8 F 03/01/24 12:00 Pulse 66 03/01/24 12:00 Resp 36 H 03/01/24 12:43 BP 130/74 03/01/24 12:00 Pulse Ox 99 03/01/24 12:00 O2 Del Method Nasal Cannula 03/01/24 08:03 O2 Flow Rate 2 03/01/24 08:03 02/29/24 03/01/24 03/01/24 22:59 06:59 14:59 Intake Total 770.0389 / 2147.2739 1086.219 / 3233.4929 295.45 / 295.45 Output Total 270 / 270 450 / 720 Balance 500.0389 / 1877.2739 636.219 / 2513.4929 295.45 / 295.45 Weight last 48 hrs Weight 57.878 kg Weight 58.876 kg Physical Exam Narrative: Patient is alert and awake to self. Answers questions however could not follow commands per se. Right shoulder and right ribs are mildly tender to palpation. Patient unable to move right arm secondary to pain. Mental status slightly better today therefore was able to assess. Chest clear to auscultation bilaterally Cardiovascular normal heart sounds no murmurs Abdomen soft nontender nondistended normal bowel sounds Extremities no edema noted bilateral lower extremity Data 03/01/24 03:50 03/01/24 03:50 Micro: Microbiology 02/21/24 04:09 Blood Culture - Final Blood 02/21/24 04:37 Blood Culture - Final Blood Staphylococcus epidermidis Staphylococcus sp coag neg#2 Staphylococcus sp coag neg#3 Streptococcus species 02/27/24 04:02 Urine Culture - Final Urine Suprapubic A&P Assessment and plan (1) UTI (urinary tract infection): (2) Generalized weakness: (3) Atrial fibrillation: (4) COPD (chronic obstructive pulmonary disease): Qualifiers: COPD type: unspecified COPD Qualified Code(s): J44.9 - Chronic obstructive pulmonary disease, unspecified (5) Falls frequently: (6) Multilevel degenerative disc disease: (7) Altered mental status: Plan Doc Michelle Herrera Jr is a 78 year old male with past medical history of chronic urinary obstruction with suprapubic catheter, atrial fibrillation, stroke, hypertension, COPD, multilevel degenerative disc disease, spinal stenosis presented with complaint of weakness and a fall, abdominal pain, blocked suprapubic catheter and found to have WBC count of 18.5, UA strongly positive. Chest x-ray, CT head, CT AP negative for acute findings CT lumbar spine showed severe spondylosis with severe spinal canal stenosis at L4-L5 Severe bilateral neural foraminal narrowing from L2-L5, findings likely stable as compared to previous. Would need outpatient follow-up with spine surgeon. #Generalized weakness and abdominal pain likely secondary to UTI- Blocked suprapubic catheter replaced in ER UA strongly positive showing urine blood 2+ urine nitrate positive leukocyte esterase 3+, RBC 51-100, WBCs more than 100, urine bacteria 4+ Has history of recurrent UTI in the past Urine cultures reviewed showed Enterobacter and Susan in the past Received IV Zosyn 3.375 g x 1 in ED Will do IV Levaquin 750 mg daily Follow-up urine culture Encourage p.o. fluid intake #A-fib with RVR-resolved, currently in sinus rhythm Continue home medications metoprolol 25 mg twice daily Continue SENIOR ACCOUNT EXECUTIVE torsemide and potassium chloride He is not on chronic anticoagulation for A-fib being a fall risk. ECHO 06/15 LV systolic function is normal with EF of 60-65% Trace mitral regurgitation Trace tricuspid regurgitation #COPD-stable Continue nebulizers as needed #Depression-continue SENIOR ACCOUNT EXECUTIVE Depakote and fluoxetine DVT prophylaxis with subcutaneous Lovenox GI prophylaxis with IV Pepcid 20 mg twice daily CODE STATUS discussed with the patient, he is full code. 02/22/24 This afternoon patient was found to be agitated, verbally abusive and hitting. Was given 1 mg of IV Ativan which calmed him down and he has been resting well since then. Symptoms likely due to hospital induced delirium versus dementia with behavioral disturbances. Will continue to monitor. Creatinine trending up to 1.5 likely secondary to poor p.o. intake. Will hold SENIOR ACCOUNT EXECUTIVE torsemide for now Urine culture positive for gram-positive cocci. Continue levofloxacin, IV vancomycin added. Leukocytosis improved to 12.1 Will do IV Ativan 1 mg every 4 hours as needed and IV Haldol 1 mg every 4 hours as needed alternating for agitation. Will need case management consult for discharge planning 02/23/24 He continues to be confused and agitated. Has been on IV Ativan and Haldol as needed. He came from home on admission but would need case management for discharge planning to a subacute or assisted living facility. Has urine culture showing gram-negative rods and bulk blood culture showing gram-positive rods hence on IV vancomycin and levofloxacin. Follow-up final cultures and the need for ID consult for discharge antibiotics. Leukocytosis resolved, creatinine improved to 1.2. 02/24/24 He has been hemodynamically stable but agitated and confused has been needing as needed IV Ativan. He has been refusing IVs, spitting out medications and refusing food. Needs to follow-up with case management for safe discharge planning. He was living at home alone with a home health care worker coming in for few hours. 02/25/2024 Patient had 1 mg of Ativan given at 3 AM. Too sleepy in the morning. I will discontinue further Ativan at this time. ? He has not really talked to me or answer any questions. Did not work with physical therapy either was able to sit on his edge of the bed however is a maximum assist at this time. Has been refusing food and medications upon reviewing previous notes. ? Will attempt to reach to family to gather what his baseline is. Patient is unsafe to go home at this time. He may perhaps qualify for halfway facility however he is not participating with physical therapy. He may have to go to a dementia unit. ? Continue to treat with Zyvox and ciprofloxacin at this time. ? He is has had a previous stroke in the past. ? Continue to treat for UTI. ? CT head negative at admission. CT abdomen pelvis shows no acute findings done at admission. ? Will repeat CT head today. 02/26/2024 CT head rule out stroke ? Hypernatremia. Sodium 157 ? Placed on D5 water 75 cc/h ? Has been spiking fevers overnight. Will repeat blood cultures today ? Switch to IV Zyvox and IV meropenem. ? Continue medical management at this time. Continue Depakote at bedtime. ? Recheck labs daily CBC CMP magnesium. -Discussed with nursing staff, caregiver at bedside. 02/27/2024 I got a call from the nurse later on close to 11:00 that patient was tachypneic hypotensive and had worsening tachycardia. Patient had recently eaten. There is a question he may have aspirated. Went to evaluate patient at bedside. He was tachypneic and was using accessory muscles to breathe. Hypotensive with systolic blood pressure down to 77. 500 cc normal saline bolus given. Chest x-ray reviewed no evidence of acute infiltrate or pulmonary edema at this time. Lungs clear to auscultation. Fluids ordered. Patient transferred to ICU. Continue nasal cannula at this time and requested suctioning. Upon arriving to ICU patient was given amiodarone bolus additionally and amiodarone drip was continued. Patient's condition did improve and did not require BiPAP. On 4 L nasal cannula. Around 11:00 he also had a temperature of 100.4. Patient is being covered with antibiotics at this time. He was seen by speech therapy who have recommended n.p.o. status. He does have coughing episodes while after oral consumption. There is possibility of pharyngeal residue or possibly reflux. We will be pursuing a modified barium swallow. Potassium 3.3 this morning. IV potassium has been ordered. - Continue D5 water at 75 cc/h ? Repeat blood cultures negative so far ? Continue IV Zyvox IV meropenem. ? Continue Depakote at bedtime ? Discussed with nursing staff ? Discussed with speech therapist. ? Plan for modified barium swallow. ? Continue to monitor in ICU today. Keep patient n.p.o. status. ? Continue amiodarone drip. Will transition to oral amnio 400 daily after 24 hours. ? Hemoglobin 10.8, stable. Will place on Eliquis 5 twice daily at discharge. for now add therapeutic lovenox ? Placed on thiamine, folic acid. ? Will check phosphorus. ? Continue Levophed and wean off as able. 02/28/2024 -Seen this morning. Sodium 149. ? Amiodarone drip turned off overnight as patient was becoming bradycardic. ? He is refusing treatment. Refusing IV, medications. ? [place] negative at 6 hours. ? Patient is alert and oriented to self. ? Currently NPO. ? She has refused modified barium swallow this morning. ? Speech therapy to work with patient. ? PT OT ordered. ? Patient is not safe to go home alone. He does have a caregiver that comes 37 hours a week however other than that he is alone rest of the time. He is currently a maximum assist. ? Has severe deconditioning. ? Continue linezolid, meropenem ? Urine culture negative. ? Blood culture pending ? D5 water restarted. ? We will need to set up placement for the patient. Unable to have a goals of care discussion. Patient does not have a DPOA. ? Most likely has hospital-acquired delirium with component of hypernatremia, metabolic encephalopathy. ? Patient is at risk of aspiration. 02/29/2024 ?No DPOA. ? Caregiver present at bedside. She cannot make medical decisions at this time. Discussed with her regarding pursuing guardianship possibly. precast concrete ironworker will speak to them. ? Patient refusing treatment at times and at other times taking tablets. ? Currently n.p.o. Is a severe aspiration risk. Speech therapy has evaluated multiple times. ? Patient severely deconditioned and has had a decline since admission. Unsafe to go home alone. ? Not following commands today and has some garbled speech and unable to move bilateral lower extremities and right extremity. Unsure if he cannot move it versus he has had a cerebrovascular event. Does have atrial fibrillation. Is on therapeutic Lovenox at this time as well. We will give Ativan for light sedation and check MRI brain today. Will also produce CTA head and neck to rule out stroke. ? Will have to assess brain imaging going forward patient may need a PEG tube. ? As per caregiver he wanted all life-saving measures if possible. Patient is full code. ? Continue to D5 half-normal saline at 100 cc/h. Will place dietitian consult for PPN temporarily. ?He has been febrile and aspirating. Will order rectal Tylenol ? Continue amiodarone drip. ? Will switch Depakote to IV. ? Continue meropenem, linezolid. ? Continue Protonix 40 IV daily -Discussed with caregiver, nursing staff, pharmacy, social scientist 03/01/2024 -Amiodarone drip was stopped yesterday. Patient has been placed on metoprolol 2.5 IV every 4 hours as needed. ? Continue therapeutic Lovenox. Switch to Eliquis at discharge. ? Currently n.p.o. and is a severe aspiration risk. With mental status slightly improving and speech slightly improving we will have speech therapy assess again on Sunday. Continue PPN at this time. ? MRI brain has ruled out a stroke. CTA head and neck also within normal limits. ? Patient is severely deconditioned and weak with failure to thrive. Severe protein calorie malnutrition. ? Continue D5 half-normal saline at 100 cc/h. Patient was aspirating and was febrile however overnight has been afebrile. Continue rectal Tylenol. ? For shoulder pain we will order morphine 2 mg every 6 hours as needed. ? Check right shoulder x-ray, chest x-ray today. ? Continue Depakote IV, meropenem, linezolid. Stop antibiotics after 10 days total. ? Leukocytosis WBC 16,000. Most likely reactive and with recurrent aspiration. -Patient will need halfway facility at discharge. Once mental status improves further. Will address goals of care with him and disposition. Continue current management for now. Provide nutrition through PPN. Hopefully patient would let us do modified barium swallow Attestations Medical Necessity Statement*: Altered mental status. Unsafe to go home alone. Diagnoses UTI (urinary tract infection) N39.0 Generalized weakness R53.1 Atrial fibrillation I48.91 Chronic obstructive pulmonary disease, unspecified COPD type J44.9 COPD type: unspecified COPD Falls frequently R29.6 Multilevel degenerative disc disease M53.9 Altered mental status R41.82
--- NOTE | 2024-03-01 14:05 | XRR_ITS ---
PROCEDURE INFORMATION: Exam: XR Right Forearm Exam date and time: 03/01/2024 11:28 PM Age: 78 years old Clinical indication: Lower or forearm; Right; Patient HX: RT side rib pain; RT arm pain after fall x 10 days ago; RT hand clubbed TECHNIQUE: Imaging protocol: Radiologic exam of the right forearm. Views: 2 views. COMPARISON: No relevant prior studies available. FINDINGS: Bones/joints: No definite acute fracture or dislocation. Moderate to advanced degenerative changes of the radiocarpal joint as well as the 1st carpometacarpal joint. Possible remote avulsion fracture of the ulnar styloid. Diffuse osseous demineralization. Soft tissues: Normal. XR/XR forearm RT 2V [id number] IMPRESSION: 1. No definite acute osseous findings. 2. Moderate to advanced degenerative changes within the wrist.
--- NOTE | 2024-03-01 14:05 | XRR_ITS ---
PROCEDURE INFORMATION: Exam: XR Chest Exam date and time: 03/01/2024 11:28 PM Age: 78 years old Clinical indication: Intercostal; Patient HX: RT side rib pain; RT arm pain after fall x 10 days ago; RT hand clubbed TECHNIQUE: Imaging protocol: Radiologic exam of the chest. Views: 1 view. COMPARISON: CR XR chest 1V portable [id number] 02/27/2024 10:29 AM FINDINGS: Tubes, catheters and devices: Pacer pads overlie the left hemithorax. Lungs: Unremarkable. No consolidation. Pleural spaces: Unremarkable. No pleural effusion. No pneumothorax. Heart/Mediastinum: Unremarkable. No cardiomegaly. Vasculature: Atherosclerotic aortic calcifications. Bones/joints: No definite acute rib fracture. XR/XR chest 1V portable [id number] IMPRESSION: No acute findings.
--- NOTE | 2024-03-01 14:05 | XRR_ITS ---
PROCEDURE INFORMATION: Exam: XR Right Humerus Exam date and time: 03/01/2024 11:28 PM Age: 78 years old Clinical indication: Upper arm; Right; Patient HX: RT side rib pain; RT arm pain after fall x 10 days ago; RT hand clubbed TECHNIQUE: Imaging protocol: Radiologic exam of the right humerus. Views: 2 or more views. COMPARISON: CR XR chest 1V portable [id number] 03/01/2024 11:28 PM FINDINGS: Bones/joints: No acute fracture or dislocation. The shoulder and elbow joints are grossly intact. Soft tissues: Normal. XR/[place] [id number] IMPRESSION: No acute osseous findings. If clinical concern persists, consider CT.
[2024-03-01] MEDS: multivitamin inj 10 ML in AA-Dex 4.25%-5% w/Lytes 1,000 ML 63 ML IV (14:57)
--- NOTE | 2024-03-01 19:09 | PC.NURSE ---
PPN: On arrival to shift @1900, PPN running @83ml/hr, MAR edited to reflect this.
--- NOTE | 2024-03-01 19:37 | ECG_ITS ---
[facility] Test Date: 2024-03-01 Pat Name: Michael Herrera Department: Room: ICU03 Gender: Male Face Burler: : 1945 Requested By: Traci Ott Order Number: [id number] Reading MD: TRACI ANTONY Measurements Intervals [place] Rate: 135 P: 0 NC: 0 QRS: 1 QRSD: 88 T: 80 QT: 337 QTc: 506 Interpretive Statements ATRIAL FIBRILLATION WITH RAPID VENTRICULAR RESPONSE NONSPECIFIC ST & T-WAVE ABNORMALITY ABNORMAL RHYTHM ECG Compared to ECG 02/29/2024 03:10:48 T-wave abnormality now present ST (T wave) deviation no longer present Electronically Signed On 03-03-2024 16:11:07 OVEN PRESS TENDER by TRACI ANTONY [email or web address]
[2024-03-01] MEDS: metoprolol tartrate 1 mg/1 mL SDV 5 mL 2.5 MG IVP (19:50)
--- NOTE | 2024-03-01 19:58 | PC.NURSE ---
A.fib: Pt converted back to A.fib @1929. EKG obtained @[address] Ott via [facility] @1943. Order to give 2.5 mg Metoprolol IVP, see 'MAY' for administration.
[2024-03-01 20:14] LABS: Glucose Point of Care 116 mg/dL (70-110)
[2024-03-02] VITALS (55 sets, daily range): BP systolic 70–135; BP diastolic 48–74; PULSE 63–139; RESP 18–40; TEMP 36.7–38.4; O2SAT 88–100
[2024-03-02 00:15] LABS: Glucose Point of Care 160 mg/dL (70-110)
[2024-03-02] MEDS: lanolin oint 7 gm 1 APPLIC TOPICAL (00:20)
[2024-03-02] MEDS: acetaminophen 650 mg Supp PR (02:30)
[2024-03-02] MEDS: enoxaparin 60 mg/0.6 mL Syringe SUBCUT ×2 (03:01→14:59)
[2024-03-02 03:35] LABS: Basophils % 0.1 %; Eosinophils # 0.1 10^3/uL (0.0-0.8); Eosinophils % 0.4 %; Hematocrit 29.7 % (37-53); Lymphocytes # 1.4 10^3/uL (0.8-4.8); Lymphocytes % 7.6 %; Mean Corpuscular Hemoglobin 34.1 pg (27-33); Mean Corpuscular Volume 103.5 fl (82-101); Mean Platelet Volume 11.9 fL (7.4-10.4); Monocytes # 1.2 10^3/uL (0.2-0.9); Monocytes % 6.5 %; Neutrophils # 15.75 10^3/uL (1.8-7.7); Neutrophils % 84.4 %; Nucleated Red Blood Cells % 0 %; Platelet Count 161 10^3/cmm (157-399); Red Blood Count 2.87 10^6/uL (3.85-5.65); White Blood Count 18.66 10^3/uL (3.29-11.43)
[2024-03-02] MEDS: multivitamin inj 10 ML in AA-Dex 4.25%-5% w/Lytes 1,000 ML 83 ML IV ×2 (03:57→15:57)
[2024-03-02 04:01] LABS: Alanine Aminotransferase 33 U/L (0-41); Albumin Level 2.3 g/dL (3.5-5.2); Alkaline Phosphatase 84 U/L (40-130); Anion Gap 13.3 (5-19); Aspartate Amino Transferase 30 U/L (0-40); Blood Urea Nitrogen 32 mg/dL (8-23); Calcium 8.6 mg/dL (8.5-10.5); Carbon Dioxide 23 mmol/L (22-29); Chloride 102 mmol/L (98-107); Creatinine Clr Calc Pharmacy 49.0355; Globulin 2.9 g/dL (1.3-4.6); Glucose 106 mg/dL (65-115); Magnesium 2.3 mg/dL (1.7-2.3); Osmolality Calculated 285 mOsm/kg (285-295); Phosphorus 3.9 mg/dL (2.5-4.5); Potassium 4.3 mmol/L (3.5-5.1); Sodium 134 mmol/L (136-145); Total Bilirubin 0.4 mg/dL (0.15-1.2); Total Protein 5.2 g/dL (6.6-8.7)
[2024-03-02 04:11] LABS: Glucose Point of Care 114 mg/dL (70-110)
[2024-03-02] MEDS: meropenem 1,000 mg SDV 1000 MG IVP ×2 (07:01→17:35)
[2024-03-02] MEDS: ipratropium-albuterol 3 mL Neb INHALATION (07:55)
[2024-03-02] MEDS: budesonide 0.5 mg/2 mL Neb INHALATION ×2 (07:55→20:30)
[2024-03-02 08:36] LABS: Glucose Point of Care 111 mg/dL (70-110)
--- NOTE | 2024-03-02 09:25 | CTR_ITS ---
PROCEDURE INFORMATION: Exam: CT Chest With Contrast; Diagnostic Exam date and time: 03/02/2024 1:38 PM Age: 78 years old Clinical indication: Fever; Additional info: Fever, leukocytosis TECHNIQUE: Imaging protocol: Diagnostic computed tomography of the chest with contrast. Radiation optimization: All CT scans at this facility use at least one of these dose optimization techniques: automated exposure control; mA and/or kV adjustment per patient size (includes targeted exams where dose is matched to clinical indication); or iterative reconstruction. Contrast material: OMNI 350; Contrast volume: 100 ml; Contrast route: INTRAVENOUS (IV); COMPARISON: CT angio chest PE protcl [id number] 05/24/2022 3:50 AM RADIATION DOSE METRICS: Total DLP (mGy-cm): 994.24 FINDINGS: Lungs: Ground-glass infiltrates in the right upper lobe, and to a lesser extent lingula. Compressive atelectasis both lower lobes. Pleural spaces: Small bilateral pleural effusions. Heart: Unremarkable. No cardiomegaly. No pericardial effusion. Coronary arteries: There is mild atherosclerotic calcification of the coronary arteries. Lymph nodes: Unremarkable. No enlarged lymph nodes. Vasculature: Calcified atheromas of the visualized arteries. Bones/joints: Moderate degenerative disease of bilateral glenohumeral joints. Soft tissues: Unremarkable. PROCEDURE INFORMATION: Exam: CT Abdomen And Pelvis With Contrast Exam date and time: 03/02/2024 1:38 PM Age: 78 years old Clinical indication: Fever; Additional info: Fever, leukocytosis TECHNIQUE: Imaging protocol: Computed tomography of the abdomen and pelvis with contrast. Radiation optimization: All CT scans at this facility use at least one of these dose optimization techniques: automated exposure control; mA and/or kV adjustment per patient size (includes targeted exams where dose is matched to clinical indication); or iterative reconstruction. Contrast material: OMNI 350; Contrast volume: 100 ml; Contrast route: INTRAVENOUS (IV); COMPARISON: CT kidney stone [id number] 02/21/2024 7:20 AM RADIATION DOSE METRICS: Total DLP (mGy-cm): 994.24 FINDINGS: Liver: Normal. No mass. Gallbladder and biliary ducts: There has been a cholecystectomy. Pancreas: Normal. No ductal dilation. Spleen: Normal. No splenomegaly. Adrenal glands: Normal. No mass. Kidneys and ureters: Bilateral simple renal cysts measuring up to 5.3 cm in the upper pole of the left kidney. There is no evidence of hydronephrosis. Stomach and bowel: Mild wall thickening of the stomach, suggestive gastritis. Appendix: No evidence of appendicitis. Intraperitoneal space: Unremarkable. No free air. No significant fluid collection. Vasculature: Calcified atheromas of the visualized arteries. Lymph nodes: Unremarkable. No enlarged lymph nodes. Urinary bladder: Suprapubic Lowery catheter in the bladder. Reproductive: Unremarkable as visualized. Bones/joints: Defect in the right posterior iliac bone, from prior insult. Demineralization of the visualized bones, limiting sensitivity for nondisplaced fractures. Mild degenerative disease of both hip joints. Mild curvature of the lumbar spine convex to the right. Posterior osteophyte disc complex and L4-L5 causing mild bony canal stenosis. Mild compression deformity of L1. Soft tissues: Unremarkable. CT/CT chest abdpel w/*[id number] IMPRESSION: Multifocal ground-glass opacities involving the right upper lobe and lingula, suggestive of pneumonia with associated bilateral pleural effusions. IMPRESSION: Mild gastric wall thickening, suggestive of gastritis. No intra-abdominal collections. COMMENTS: Consistent with the [employer]'s Incidental Findings Committee white paper (J Am Didier Radiol 2018): Any incidental renal lesion less than 1 cm or classified as too small to characterize, or any incidental cystic renal lesion characterized as simple-appearing, is likely benign. No follow-up imaging is recommended for these lesions per consensus recommendations based on imaging criteria.
--- NOTE | 2024-03-02 09:41 | PHA.VACGOAL ---
Vancomycin Goal - Goal Vancomycin Goal:: 10-15 mg/L Vancomycin Indication:: Other - Therapy Current therapy:: Meropenem Day of therpy:: Day []of [] Actual body weight (kg): 129 lb 12.8 oz - Data Labs: WBC 18.66 10^3/uL (3.29-11.43) H 03/02/24 03:12 RBC 2.87 10^6/uL (3.85-5.65) L 03/02/24 03:12 Hgb 9.80 g/dL (11.27-16.99) L 03/02/24 03:12 Hct 29.7 % (37-53) L 03/02/24 03:12 MCV 103.5 fl (82-101) H 03/02/24 03:12 MCH 34.1 pg (27-33) H 03/02/24 03:12 MCHC 33.0 g/dL (30-55) 03/02/24 03:12 RDW 13.0 % (12.1-15.1) 03/02/24 03:12 Sodium 134 mmol/L (136-145) L 03/02/24 03:12 Potassium 4.3 mmol/L (3.5-5.1) 03/02/24 03:12 Chloride 102 mmol/L (98-107) 03/02/24 03:12 Carbon Dioxide 23 mmol/L (22-29) 03/02/24 03:12 Anion Gap 13.3 (5-19) 03/02/24 03:12 BUN 32 mg/dL (8-23) H 03/02/24 03:12 Creatinine 1.0 mg/dL (0.7-1.2) 03/02/24 03:12 GFR Calculation Not Reportable 03/02/24 03:12 Last dialysis session:: N/A Treatment plan:: new consult Regimen:: LOADING DOSE OF 1g MAINTENANCE DOSE 500mg Q12H Follow up:: WILL CONTINUE TO MONITOR AND FOLLOW UP
[2024-03-02 13:04] LABS: Glucose Point of Care 122 mg/dL (70-110)
[2024-03-02] MEDS: iohexol 350 mg/mL 500 mL Btl (per mL) IV (13:48)
[2024-03-02] MEDS: methylPREDNISolone sod succ 40 mg/mL INJ IVP (14:04)
[2024-03-02] MEDS: pantoprazole 40 mg SDV IVP (14:04)
[2024-03-02] MEDS: valproic acid inj 250 MG in sodium chloride 0.9% 50 ML 55 MG IV ×2 (14:05→20:56)
[2024-03-02] MEDS: lidocaine 5% Patch 1 PATCH TOPICAL (14:05)
[2024-03-02 14:44] LABS: Lactate (Lactic Acid level) 1.3 mmol/L (0.5-2.2)
--- NOTE | 2024-03-02 15:04 | PM.PN ---
Subjective Subjective: Seen this morning. Patient awake alert oriented to self and place. He tells me he is in the hospital. Speech no longer garbled. I could understand what he was saying this morning. Appears somewhat better compared to prior days. Much more coherent. Had a long discussion with him regarding how he felt. He smiled. Also said that he was hungry. Discussed with him that we were trying to send him to a halfway to which he answered hell no, I want to go home . I told him he had to speak to us and we had to assess for his capacity to make further decisions. He was very cooperative this morning. Ask him what year it was at first he said 2022 and later he said it was 1945 however stated that he was in the hospital. He knew his name and date of . Complains of pain in his right hand. He states he has a history of arthritis. He says he takes Ensure at home as supplements. He states he was hungry. He said he can try to swallow again. Discussed with him regarding his DPOA. He states that he currently does not have 1. I discussed if he wanted to set up 1 for somebody to which she said no I do not want to do that. I can talk for myself. Then I mentioned Cleo's name which is his caregiver he said yes I can do 1 for Cleo. We can sign it. I trust her. Addressed CODE STATUS goals of care discussion this morning. Discussed a feeding tube to which she said no I do not want that. I drink Ensure. Discussed regarding ventilator and CPR. He states I do not want that. When asked about the president was he stated I do not want to say who it is. After all that I have been through I do not want to name the president. Towards the end of conversation patient did not mention president's name. He has been febrile overnight and on 2 L nasal cannula. 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 He converted to sinus rhythm on his own. Currently on PPN. Vitals/I&O/Wt Last Vital Signs Temp 98.6 F 03/02/24 14:00 Pulse 74 03/02/24 14:30 Resp 27 H 03/02/24 14:30 BP 120/62 03/02/24 14:30 Pulse Ox 88 L 03/02/24 14:00 O2 Del Method Nasal Cannula 03/02/24 14:30 O2 Flow Rate 2 03/02/24 14:30 03/02/24 03/02/24 03/02/24 06:59 14:59 22:59 Intake Total 848.733 / 3342.050 257.3 / 257.3 Output Total 850 / 1200 Balance -1.267 / 2142.050 257.3 / 257.3 Weight last 48 hrs Weight 58.876 kg Weight 57.878 kg Physical Exam Narrative: Patient is alert oriented x 2, oriented to place and self. Answers questions appropriately this morning and is coherent. States he is hungry. Chest clear to auscultation bilaterally Cardiovascular normal heart sounds no murmurs Abdomen soft nontender nondistended normal bowel sounds Extremities no edema noted bilateral lower extremity Data 03/02/24 03:12 03/02/24 03:12 Micro: Microbiology 02/26/24 12:41 Blood Culture - Final Blood NO GROWTH AFTER 5 DAYS 02/26/24 12:40 Blood Culture - Final Blood NO GROWTH AFTER 5 DAYS A&P Assessment and plan (1) UTI (urinary tract infection): (2) Generalized weakness: (3) Atrial fibrillation: (4) COPD (chronic obstructive pulmonary disease): Qualifiers: COPD type: unspecified COPD Qualified Code(s): J44.9 - Chronic obstructive pulmonary disease, unspecified (5) Falls frequently: (6) Multilevel degenerative disc disease: (7) Altered mental status: Plan Doc S Sharon Matthew is a 78 year old male with past medical history of chronic urinary obstruction with suprapubic catheter, atrial fibrillation, stroke, hypertension, COPD, multilevel degenerative disc disease, spinal stenosis presented with complaint of weakness and a fall, abdominal pain, blocked suprapubic catheter and found to have WBC count of 18.5, UA strongly positive. Chest x-ray, CT head, CT AP negative for acute findings CT lumbar spine showed severe spondylosis with severe spinal canal stenosis at L4-L5 Severe bilateral neural foraminal narrowing from L2-L5, findings likely stable as compared to previous. Would need outpatient follow-up with spine surgeon. #Generalized weakness and abdominal pain likely secondary to UTI- Blocked suprapubic catheter replaced in ER UA strongly positive showing urine blood 2+ urine nitrate positive leukocyte esterase 3+, RBC 51-100, WBCs more than 100, urine bacteria 4+ Has history of recurrent UTI in the past Urine cultures reviewed showed Enterobacter and Susan in the past Received IV Zosyn 3.375 g x 1 in ED Will do IV Levaquin 750 mg daily Follow-up urine culture Encourage p.o. 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 02/22/24 This afternoon patient was found to be agitated, verbally abusive and hitting. Was given 1 mg of IV Ativan which calmed him down and he has been resting well since then. Symptoms likely due to hospital induced delirium versus dementia with behavioral disturbances. Will continue to monitor. Creatinine trending up to 1.5 likely secondary to poor p.o. intake. Will hold JUNIOR ACCOUNT MANAGER torsemide for now Urine culture positive for gram-positive cocci. Continue levofloxacin, IV vancomycin added. Leukocytosis improved to 12.1 Will do IV Ativan 1 mg every 4 hours as needed and IV Haldol 1 mg every 4 hours as needed alternating for agitation. Will need case management consult for discharge planning 02/23/24 He continues to be confused and agitated. Has been on IV Ativan and Haldol as needed. He came from home on admission but would need case management for discharge planning to a subacute or assisted living facility. Has urine culture showing gram-negative rods and bulk blood culture showing gram-positive rods hence on IV vancomycin and levofloxacin. Follow-up final cultures and the need for ID consult for discharge antibiotics. Leukocytosis resolved, creatinine improved to 1.2. 02/24/24 He has been hemodynamically stable but agitated and confused has been needing as needed IV Ativan. He has been refusing IVs, spitting out medications and refusing food. Needs to follow-up with case management for safe discharge planning. He was living at home alone with a home therapy teacher coming in for few hours. 02/25/2024 Patient had 1 mg of Ativan given at 3 AM. Too sleepy in the morning. I will discontinue further Ativan at this time. ? He has not really talked to me or answer any questions. Did not work with physical therapy either was able to sit on his edge of the bed however is a maximum assist at this time. Has been refusing food and medications upon reviewing previous notes. ? Will attempt to reach to family to gather what his baseline is. Patient is unsafe to go home at this time. He may perhaps qualify for assisted facility however he is not participating with physical therapy. He may have to go to a dementia unit. ? Continue to treat with Zyvox and ciprofloxacin at this time. ? He is has had a previous stroke in the past. ? Continue to treat for UTI. ? CT head negative at admission. CT abdomen pelvis shows no acute findings done at admission. ? Will repeat CT head today. 02/26/2024 CT head rule out stroke ? Hypernatremia. Sodium 157 ? Placed on D5 water 75 cc/h ? Has been spiking fevers overnight. Will repeat blood cultures today ? Switch to IV Zyvox and IV meropenem. ? Continue medical management at this time. Continue Depakote at bedtime. ? Recheck labs daily CBC CMP magnesium. -Discussed with nursing staff, caregiver at bedside. 02/27/2024 I got a call from the nurse later on close to 11:00 that patient was tachypneic hypotensive and had worsening tachycardia. Patient had recently eaten. There is a question he may have aspirated. Went to evaluate patient at bedside. He was tachypneic and was using accessory muscles to breathe. Hypotensive with systolic blood pressure down to 77. 500 cc normal saline bolus given. Chest x-ray reviewed no evidence of acute infiltrate or pulmonary edema at this time. Lungs clear to auscultation. Fluids ordered. Patient transferred to ICU. Continue nasal cannula at this time and requested suctioning. Upon arriving to ICU patient was given amiodarone bolus additionally and amiodarone drip was continued. Patient's condition did improve and did not require BiPAP. On 4 L nasal cannula. Around 11:00 he also had a temperature of 100.4. Patient is being covered with antibiotics at this time. He was seen by speech therapy who have recommended n.p.o. status. He does have coughing episodes while after oral consumption. There is possibility of pharyngeal residue or possibly reflux. We will be pursuing a modified barium swallow. Potassium 3.3 this morning. IV potassium has been ordered. - Continue D5 water at 75 cc/h ? Repeat blood cultures negative so far ? Continue IV Zyvox IV meropenem. ? Continue Depakote at bedtime ? Discussed with nursing staff ? Discussed with speech therapist. ? Plan for modified barium swallow. ? Continue to monitor in ICU today. Keep patient n.p.o. status. ? Continue amiodarone drip. Will transition to oral amnio 400 daily after 24 hours. ? Hemoglobin 10.8, stable. Will place on Eliquis 5 twice daily at discharge. for now add therapeutic lovenox ? Placed on thiamine, folic acid. ? Will check phosphorus. ? Continue Levophed and wean off as able. 02/28/2024 -Seen this morning. Sodium 149. ? Amiodarone drip turned off overnight as patient was becoming bradycardic. ? He is refusing treatment. Refusing IV, medications. ? [place] negative at 6 hours. ? Patient is alert and oriented to self. ? Currently NPO. ? She has refused modified barium swallow this morning. ? Speech therapy to work with patient. ? PT OT ordered. ? Patient is not safe to go home alone. He does have a caregiver that comes 37 hours a week however other than that he is alone rest of the time. He is currently a maximum assist. ? Has severe deconditioning. ? Continue linezolid, meropenem ? Urine culture negative. ? Blood culture pending ? D5 water restarted. ? We will need to set up placement for the patient. Unable to have a goals of care discussion. Patient does not have a DPOA. ? Most likely has hospital-acquired delirium with component of hypernatremia, metabolic encephalopathy. ? Patient is at risk of aspiration. 02/29/2024 ?No DPOA. ? Caregiver present at bedside. She cannot make medical decisions at this time. Discussed with her regarding pursuing guardianship possibly. well service derrick worker will speak to them. ? Patient refusing treatment at times and at other times taking tablets. ? Currently n.p.o. Is a severe aspiration risk. Speech therapy has evaluated multiple times. ? Patient severely deconditioned and has had a decline since admission. Unsafe to go home alone. ? Not following commands today and has some garbled speech and unable to move bilateral lower extremities and right extremity. Unsure if he cannot move it versus he has had a cerebrovascular event. Does have atrial fibrillation. Is on therapeutic Lovenox at this time as well. We will give Ativan for light sedation and check MRI brain today. Will also produce CTA head and neck to rule out stroke. ? Will have to assess brain imaging going forward patient may need a PEG tube. ? As per caregiver he wanted all life-saving measures if possible. Patient is full code. ? Continue to D5 half-normal saline at 100 cc/h. Will place dietitian consult for PPN temporarily. ?He has been febrile and aspirating. Will order rectal Tylenol ? Continue amiodarone drip. ? Will switch Depakote to IV. ? Continue meropenem, linezolid. ? Continue Protonix 40 IV daily -Discussed with caregiver, nursing staff, pharmacy, social media senior associate 03/01/2024 -Amiodarone drip was stopped yesterday. Patient has been placed on metoprolol 2.5 IV every 4 hours as needed. ? Continue therapeutic Lovenox. Switch to Eliquis at discharge. ? Currently n.p.o. and is a severe aspiration risk. With mental status slightly improving and speech slightly improving we will have speech therapy assess again on Sunday. Continue PPN at this time. ? MRI brain has ruled out a stroke. CTA head and neck also within normal limits. ? Patient is severely deconditioned and weak with failure to thrive. Severe protein calorie malnutrition. ? Continue D5 half-normal saline at 100 cc/h. Patient was aspirating and was febrile however overnight has been afebrile. Continue rectal Tylenol. ? For shoulder pain we will order morphine 2 mg every 6 hours as needed. ? Check right shoulder x-ray, chest x-ray today. ? Continue Depakote IV, meropenem, linezolid. Stop antibiotics after 10 days total. ? Leukocytosis WBC 16,000. Most likely reactive and with recurrent aspiration. -Patient will need assisted facility at discharge. Once mental status improves further. Will address goals of care with him and disposition. Continue current management for now. Provide nutrition through PPN. Hopefully patient would let us do modified barium swallow 03/02/2024 -Patient much more coherent today. In my clinical judgment he has capacity based on my conversation with him today. Nursing staff present during most of the conversation. I will change his CODE STATUS to DNR/DNI as per his wishes. ? Continue PPN today. Have him assessed by speech therapy again in the morning. ? Did have a discussion with patient regarding disposition. He states he would like to go home. I will have physical therapy see him again tomorrow. Patient may need short-term rehab stay so that he may be able to transfer from wheelchair to bed which was his baseline. He is definitely deconditioned. ? WBC count 18,[address] chest and pelvis. He has had chronically elevated WBC in the past however with fever and aspiration last few days we will continue to monitor. ? Continue IV Depakote, meropenem. Stop linezolid switched to vancomycin. ? Will consider checking a lumbar puncture however we will hold off on that at this point, mental status is better. ? Speech therapy, physical therapy evaluation again in a.m. ? Once able to take oral medications we will place on oral amiodarone. ? Continue therapeutic Lovenox at this time, Eliquis at discharge ? Attestations Medical Necessity Statement*: Severely deconditioned, unable to swallow. Currently on PPN. Requires continued hospitalization. Diagnoses UTI (urinary tract infection) N39.0 Generalized weakness R53.1 Atrial fibrillation I48.91 Chronic obstructive pulmonary disease, unspecified COPD type J44.9 COPD type: unspecified COPD Falls frequently R29.6 Multilevel degenerative disc disease M53.9 Altered mental status R41.82
[2024-03-02] MEDS: VANCOMYCIN ADD-Vantage 1,000 MG in 0.9% NaCl ADD-Vantage 250 ML 250 MG IV (15:22)
--- NOTE | 2024-03-02 15:43 | PC.NURSE ---
Witnessed Dr. Clifton speak with patient about code status this morning and patient stated he did not want anything done meaning he wished to be allow natural . Dr. Clifton spoke with patient at length about code status and verified patient was alert and oriented.
[2024-03-02 17:12] LABS: Glucose Point of Care 118 mg/dL (70-110)
[2024-03-02] MEDS: morphine 4 mg/mL SDV 1 mL 2 MG IVP ×2 (17:34→21:42)
[2024-03-02 20:43] LABS: Glucose Point of Care 145 mg/dL (70-110)
[2024-03-02] MEDS: vancomycin 500 MG in sodium chloride 0.9% (plus) 100 ML 200 MG IV (22:23)
[2024-03-03] VITALS (32 sets, daily range): BP systolic 110–147; BP diastolic 59–77; PULSE 59–76; RESP 15–29; TEMP 36.9–37.2; O2SAT 91–100
[2024-03-03] MEDS: enoxaparin 60 mg/0.6 mL Syringe SUBCUT ×2 (02:41→15:22)
[2024-03-03 02:49] LABS: Glucose Point of Care 121 mg/dL (70-110)
[2024-03-03] MEDS: meropenem 1,000 mg SDV 1000 MG IVP ×3 (04:43→21:05)
[2024-03-03] MEDS: multivitamin inj 10 ML in AA-Dex 4.25%-5% w/Lytes 1,000 ML 83 ML IV (04:53)
[2024-03-03 05:07] LABS: Glucose Point of Care 146 mg/dL (70-110)
[2024-03-03 05:32] LABS: Basophils % 0.1 %; Hematocrit 30.3 % (37-53); Lymphocytes # 0.7 10^3/uL (0.8-4.8); Lymphocytes % 4.2 %; Mean Corpuscular Hemoglobin 33.3 pg (27-33); Mean Platelet Volume 11.7 fL (7.4-10.4); Monocytes # 1.1 10^3/uL (0.2-0.9); Monocytes % 6.5 %; Neutrophils # 15.25 10^3/uL (1.8-7.7); Neutrophils % 88.5 %; Nucleated Red Blood Cells % 0 %; Platelet Count 209 10^3/cmm (157-399); White Blood Count 17.23 10^3/uL (3.29-11.43)
[2024-03-03 05:52] LABS: Anion Gap 12.7 (5-19); Blood Urea Nitrogen 43 mg/dL (8-23); Calcium 9.1 mg/dL (8.5-10.5); Carbon Dioxide 24 mmol/L (22-29); Chloride 104 mmol/L (98-107); Creatinine Clr Calc Pharmacy 63.4082; Glucose 103 mg/dL (65-115); Magnesium 2.5 mg/dL (1.7-2.3); Osmolality Calculated 293 mOsm/kg (285-295); Phosphorus 3.5 mg/dL (2.5-4.5); Potassium 4.7 mmol/L (3.5-5.1); Sodium 136 mmol/L (136-145)
--- NOTE | 2024-03-03 07:50 | PC.NURSE ---
Spoke with Dr. Clifton via telephone regarding patients poor IV access and PPN administration. Patient currently has one IV with PPN infusing and IV antibiotics due. Patient is refusing IV start as patient had experienced multiple failed attempts throughout stay. Dr. Clifton gave verbal order to pause PPN at this time, speech to evaluate patient today. See MAY.
[2024-03-03] MEDS: pantoprazole 40 mg SDV IVP (08:00)
[2024-03-03] MEDS: lidocaine 5% Patch 1 PATCH TOPICAL (08:01)
[2024-03-03] MEDS: budesonide 0.5 mg/2 mL Neb INHALATION (08:34)
[2024-03-03] MEDS: ipratropium-albuterol 3 mL Neb INHALATION (08:34)
[2024-03-03 09:21] LABS: Glucose Point of Care 91 mg/dL (70-110)
[2024-03-03] MEDS: morphine 4 mg/mL SDV 1 mL 2 MG IVP (09:40)
[2024-03-03] MEDS: valproic acid inj 250 MG in sodium chloride 0.9% 50 ML 55 MG IV ×2 (10:29→21:51)
[2024-03-03] MEDS: vancomycin 500 MG in sodium chloride 0.9% (plus) 100 ML 200 MG IV ×2 (11:28→23:03)
[2024-03-03] MEDS: methylPREDNISolone sod succ 40 mg/mL INJ IVP (12:07)
[2024-03-03 12:26] LABS: Glucose Point of Care 100 mg/dL (70-110)
--- NOTE | 2024-03-03 14:36 | PC.SOCIAL ---
IMM Update IMM Updated and reviewed w/ patient and his caregiver. Copy in chart dated and initialed and copy provided.
[2024-03-03] MEDS: multivitamin inj 10 ML in AA-Dex 4.25%-5% w/Lytes 1,000 ML 23 ML IV (14:41)
--- NOTE | 2024-03-03 14:41 | PM.PN ---
Subjective Subjective: Seen this morning. Patient was awake alert and coherent. Went over CODE STATUS in presence of his caregiver and he again indicated he was to be a DNR. Patient's caregiver stated that when he first came to the hospital he had told the caregiver that he is done and he has given up he does not want any further treatment. Vitals/I&O/Wt Last Vital Signs Temp 98.9 F 03/03/24 10:25 Pulse 68 03/03/24 14:00 Resp 20 H 03/03/24 14:00 BP 117/74 03/03/24 14:00 Pulse Ox 98 03/03/24 14:00 O2 Del Method Nasal Cannula 03/03/24 14:00 O2 Flow Rate 1 03/03/24 12:00 03/02/24 03/03/24 03/03/24 22:59 06:59 14:59 Intake Total 1576.483 / 1833.783 614.6 / 2448.383 404.267 / 404.267 Output Total 750 / 750 725 / 1475 Balance 826.483 / 1083.783 -110.4 / 973.383 404.267 / 404.267 Weight last 48 hrs Weight 59.874 kg Weight 58.876 kg Physical Exam Narrative: Patient is alert oriented x 2, oriented to place and self. Answers questions appropriately this morning and is coherent. Chest clear to auscultation bilaterally Cardiovascular normal heart sounds no murmurs Abdomen soft nontender nondistended normal bowel sounds Extremities no edema noted bilateral lower extremity Data 03/03/24 05:00 03/03/24 05:00 Micro: Microbiology 03/03/24 05:00 Blood Culture - Preliminary Blood SPECIMEN COLLECTED 03/03/24 05:00 Blood Culture - Preliminary Blood SPECIMEN COLLECTED 02/26/24 12:41 Blood Culture - Final Blood NO GROWTH AFTER 5 DAYS 02/26/24 12:40 Blood Culture - Final Blood NO GROWTH AFTER 5 DAYS A&P Assessment and plan (1) UTI (urinary tract infection): (2) Generalized weakness: (3) Atrial fibrillation: (4) COPD (chronic obstructive pulmonary disease): Qualifiers: COPD type: unspecified COPD Qualified Code(s): J44.9 - Chronic obstructive pulmonary disease, unspecified (5) Falls frequently: (6) Multilevel degenerative disc disease: (7) Altered mental status: Plan Doc S Sharon Matthew is a 78 year old male with past medical history of chronic urinary obstruction with suprapubic catheter, atrial fibrillation, stroke, hypertension, COPD, multilevel degenerative disc disease, spinal stenosis presented with complaint of weakness and a fall, abdominal pain, blocked suprapubic catheter and found to have WBC count of 18.5, UA strongly positive. Chest x-ray, CT head, CT AP negative for acute findings CT lumbar spine showed severe spondylosis with severe spinal canal stenosis at L4-L5 Severe bilateral neural foraminal narrowing from L2-L5, findings likely stable as compared to previous. Would need outpatient follow-up with spine surgeon. #Generalized weakness and abdominal pain likely secondary to UTI- Blocked suprapubic catheter replaced in ER UA strongly positive showing urine blood 2+ urine nitrate positive leukocyte esterase 3+, RBC 51-100, WBCs more than 100, urine bacteria 4+ Has history of recurrent UTI in the past Urine cultures reviewed showed Enterobacter and Susan in the past Received IV Zosyn 3.375 g x 1 in ED Will do IV Levaquin 750 mg daily Follow-up urine culture Encourage p.o. fluid intake #A-fib with RVR-resolved, currently in sinus rhythm Continue home medications metoprolol 25 mg twice daily Continue HAIRPIECE STYLIST torsemide and potassium chloride He is not on chronic anticoagulation for A-fib being a fall risk. ECHO 06/15 LV systolic function is normal with EF of 60-65% Trace mitral regurgitation Trace tricuspid regurgitation #COPD-stable Continue nebulizers as needed #Depression-continue HAIRPIECE STYLIST Depakote and fluoxetine DVT prophylaxis with subcutaneous Lovenox GI prophylaxis with IV Pepcid 20 mg twice daily CODE STATUS discussed with the patient, he is full code. 02/22/24 This afternoon patient was found to be agitated, verbally abusive and hitting. Was given 1 mg of IV Ativan which calmed him down and he has been resting well since then. Symptoms likely due to hospital induced delirium versus dementia with behavioral disturbances. Will continue to monitor. Creatinine trending up to 1.5 likely secondary to poor p.o. intake. Will hold HAIRPIECE STYLIST torsemide for now Urine culture positive for gram-positive cocci. Continue levofloxacin, IV vancomycin added. Leukocytosis improved to 12.1 Will do IV Ativan 1 mg every 4 hours as needed and IV Haldol 1 mg every 4 hours as needed alternating for agitation. Will need case management consult for discharge planning 02/23/24 He continues to be confused and agitated. Has been on IV Ativan and Haldol as needed. He came from home on admission but would need case management for discharge planning to a subacute or assisted living facility. Has urine culture showing gram-negative rods and bulk blood culture showing gram-positive rods hence on IV vancomycin and levofloxacin. Follow-up final cultures and the need for ID consult for discharge antibiotics. Leukocytosis resolved, creatinine improved to 1.2. 02/24/24 He has been hemodynamically stable but agitated and confused has been needing as needed IV Ativan. He has been refusing IVs, spitting out medications and refusing food. Needs to follow-up with case management for safe discharge planning. He was living at home alone with a home appliance installer coming in for few hours. 02/25/2024 Patient had 1 mg of Ativan given at 3 AM. Too sleepy in the morning. I will discontinue further Ativan at this time. ? He has not really talked to me or answer any questions. Did not work with physical therapy either was able to sit on his edge of the bed however is a maximum assist at this time. Has been refusing food and medications upon reviewing previous notes. ? Will attempt to reach to family to gather what his baseline is. Patient is unsafe to go home at this time. He may perhaps qualify for fpc facility however he is not participating with physical therapy. He may have to go to a dementia unit. ? Continue to treat with Zyvox and ciprofloxacin at this time. ? He is has had a previous stroke in the past. ? Continue to treat for UTI. ? CT head negative at admission. CT abdomen pelvis shows no acute findings done at admission. ? Will repeat CT head today. 02/26/2024 CT head rule out stroke ? Hypernatremia. Sodium 157 ? Placed on D5 water 75 cc/h ? Has been spiking fevers overnight. Will repeat blood cultures today ? Switch to IV Zyvox and IV meropenem. ? Continue medical management at this time. Continue Depakote at bedtime. ? Recheck labs daily CBC CMP magnesium. -Discussed with nursing staff, caregiver at bedside. 02/27/2024 I got a call from the nurse later on close to 11:00 that patient was tachypneic hypotensive and had worsening tachycardia. Patient had recently eaten. There is a question he may have aspirated. Went to evaluate patient at bedside. He was tachypneic and was using accessory muscles to breathe. Hypotensive with systolic blood pressure down to 77. 500 cc normal saline bolus given. Chest x-ray reviewed no evidence of acute infiltrate or pulmonary edema at this time. Lungs clear to auscultation. Fluids ordered. Patient transferred to ICU. Continue nasal cannula at this time and requested suctioning. Upon arriving to ICU patient was given amiodarone bolus additionally and amiodarone drip was continued. Patient's condition did improve and did not require BiPAP. On 4 L nasal cannula. Around 11:00 he also had a temperature of 100.4. Patient is being covered with antibiotics at this time. He was seen by speech therapy who have recommended n.p.o. status. He does have coughing episodes while after oral consumption. There is possibility of pharyngeal residue or possibly reflux. We will be pursuing a modified barium swallow. Potassium 3.3 this morning. IV potassium has been ordered. - Continue D5 water at 75 cc/h ? Repeat blood cultures negative so far ? Continue IV Zyvox IV meropenem. ? Continue Depakote at bedtime ? Discussed with nursing staff ? Discussed with speech therapist. ? Plan for modified barium swallow. ? Continue to monitor in ICU today. Keep patient n.p.o. status. ? Continue amiodarone drip. Will transition to oral amnio 400 daily after 24 hours. ? Hemoglobin 10.8, stable. Will place on Eliquis 5 twice daily at discharge. for now add therapeutic lovenox ? Placed on thiamine, folic acid. ? Will check phosphorus. ? Continue Levophed and wean off as able. 02/28/2024 -Seen this morning. Sodium 149. ? Amiodarone drip turned off overnight as patient was becoming bradycardic. ? He is refusing treatment. Refusing IV, medications. ? [place] negative at 6 hours. ? Patient is alert and oriented to self. ? Currently NPO. ? She has refused modified barium swallow this morning. ? Speech therapy to work with patient. ? PT OT ordered. ? Patient is not safe to go home alone. He does have a caregiver that comes 37 hours a week however other than that he is alone rest of the time. He is currently a maximum assist. ? Has severe deconditioning. ? Continue linezolid, meropenem ? Urine culture negative. ? Blood culture pending ? D5 water restarted. ? We will need to set up placement for the patient. Unable to have a goals of care discussion. Patient does not have a DPOA. ? Most likely has hospital-acquired delirium with component of hypernatremia, metabolic encephalopathy. ? Patient is at risk of aspiration. 02/29/2024 ?No DPOA. ? Caregiver present at bedside. She cannot make medical decisions at this time. Discussed with her regarding pursuing guardianship possibly. animal care service worker will speak to them. ? Patient refusing treatment at times and at other times taking tablets. ? Currently n.p.o. Is a severe aspiration risk. Speech therapy has evaluated multiple times. ? Patient severely deconditioned and has had a decline since admission. Unsafe to go home alone. ? Not following commands today and has some garbled speech and unable to move bilateral lower extremities and right extremity. Unsure if he cannot move it versus he has had a cerebrovascular event. Does have atrial fibrillation. Is on therapeutic Lovenox at this time as well. We will give Ativan for light sedation and check MRI brain today. Will also produce CTA head and neck to rule out stroke. ? Will have to assess brain imaging going forward patient may need a PEG tube. ? As per caregiver he wanted all life-saving measures if possible. Patient is full code. ? Continue to D5 half-normal saline at 100 cc/h. Will place dietitian consult for PPN temporarily. ?He has been febrile and aspirating. Will order rectal Tylenol ? Continue amiodarone drip. ? Will switch Depakote to IV. ? Continue meropenem, linezolid. ? Continue Protonix 40 IV daily -Discussed with caregiver, nursing staff, pharmacy, social science research assistant 03/01/2024 -Amiodarone drip was stopped yesterday. Patient has been placed on metoprolol 2.5 IV every 4 hours as needed. ? Continue therapeutic Lovenox. Switch to Eliquis at discharge. ? Currently n.p.o. and is a severe aspiration risk. With mental status slightly improving and speech slightly improving we will have speech therapy assess again on Sunday. Continue PPN at this time. ? MRI brain has ruled out a stroke. CTA head and neck also within normal limits. ? Patient is severely deconditioned and weak with failure to thrive. Severe protein calorie malnutrition. ? Continue D5 half-normal saline at 100 cc/h. Patient was aspirating and was febrile however overnight has been afebrile. Continue rectal Tylenol. ? For shoulder pain we will order morphine 2 mg every 6 hours as needed. ? Check right shoulder x-ray, chest x-ray today. ? Continue Depakote IV, meropenem, linezolid. Stop antibiotics after 10 days total. ? Leukocytosis WBC 16,000. Most likely reactive and with recurrent aspiration. -Patient will need fpc facility at discharge. Once mental status improves further. Will address goals of care with him and disposition. Continue current management for now. Provide nutrition through PPN. Hopefully patient would let us do modified barium swallow 03/02/2024 -Patient much more coherent today. In my clinical judgment he has capacity based on my conversation with him today. Nursing staff present during most of the conversation. I will change his CODE STATUS to DNR/DNI as per his wishes. ? Continue PPN today. Have him assessed by speech therapy again in the morning. ? Did have a discussion with patient regarding disposition. He states he would like to go home. I will have physical therapy see him again tomorrow. Patient may need short-term rehab stay so that he may be able to transfer from wheelchair to bed which was his baseline. He is definitely deconditioned. ? WBC count 18,[address] chest and pelvis. He has had chronically elevated WBC in the past however with fever and aspiration last few days we will continue to monitor. ? Continue IV Depakote, meropenem. Stop linezolid switched to vancomycin. ? Will consider checking a lumbar puncture however we will hold off on that at this point, mental status is better. ? Speech therapy, physical therapy evaluation again in a.m. ? Once able to take oral medications we will place on oral amiodarone. ? Continue therapeutic Lovenox at this time, Eliquis at discharge 03/03/2024 -Continue PPN ? Continue IV antibiotics. ? CT chest abdomen pelvis reviewed. Evidence of pneumonia ? Continue vancomycin, meropenem ? Patient is improving however severely deconditioned. Will need rehab at discharge. ? This morning agreed to go to rehab with social science research assistant. ? Recently received morphine and therefore has gone back to sleep. ? Check speech therapy evaluation once awake. ? Once able to tolerate oral we will transition to oral medications. ? Attestations Medical Necessity Statement*: Severely deconditioned, unable to swallow. Currently on PPN. Requires continued hospitalization. Diagnoses UTI (urinary tract infection) N39.0 Generalized weakness R53.1 Atrial fibrillation I48.91 Chronic obstructive pulmonary disease, unspecified COPD type J44.9 COPD type: unspecified COPD Falls frequently R29.6 Multilevel degenerative disc disease M53.9 Altered mental status R41.82
[2024-03-03 17:26] LABS: Glucose Point of Care 145 mg/dL (70-110)
[2024-03-03 20:53] LABS: Glucose Point of Care 154 mg/dL (70-110)
[2024-03-03 20:54] LABS: Glucose Point of Care 156 mg/dL (70-110)
--- NOTE | 2024-03-03 22:14 | PC.NURSE ---
Lidocaine patch Patch removed at 2210. Patch was found partially pulled off.
[2024-03-04] VITALS (28 sets, daily range): BP systolic 113–150; BP diastolic 54–95; PULSE 61–110; RESP 17–33; TEMP 36.3–36.6; O2SAT 91–100
[2024-03-04 00:20] LABS: Glucose Point of Care 126 mg/dL (70-110)
[2024-03-04] MEDS: metoprolol tartrate 1 mg/1 mL SDV 5 mL 2.5 MG IVP (00:32)
[2024-03-04] MEDS: meropenem 1,000 mg SDV 1000 MG IVP ×2 (03:59→13:29)
[2024-03-04] MEDS: enoxaparin 60 mg/0.6 mL Syringe SUBCUT (04:02)
[2024-03-04 05:41] LABS: Eosinophils % 0.1 %; Hematocrit 30.6 % (37-53); Lymphocytes # 0.6 10^3/uL (0.8-4.8); Mean Corpuscular Hemoglobin 33.9 pg (27-33); Mean Corpuscular Volume 102.7 fl (82-101); Mean Platelet Volume 12.4 fL (7.4-10.4); Monocytes # 1.2 10^3/uL (0.2-0.9); Monocytes % 7.5 %; Neutrophils # 13.54 10^3/uL (1.8-7.7); Neutrophils % 87.9 %; Nucleated Red Blood Cells % 0.2 %; Platelet Count 209 10^3/cmm (157-399); Red Blood Count 2.98 10^6/uL (3.85-5.65); Red Cell Distribution Width 13.2 % (12.1-15.1)
[2024-03-04 06:01] LABS: Blood Urea Nitrogen 44 mg/dL (8-23); Carbon Dioxide 24 mmol/L (22-29); Chloride 106 mmol/L (98-107); Creatinine Clr Calc Pharmacy 63.4082; Glucose 98 mg/dL (65-115); Magnesium 2.4 mg/dL (1.7-2.3); Osmolality Calculated 299 mOsm/kg (285-295); Sodium 139 mmol/L (136-145)
[2024-03-04 06:07] LABS: Anion Gap 13.7 (5-19); Potassium 4.7 mmol/L (3.5-5.1)
--- NOTE | 2024-03-04 06:29 | PC.NURSE ---
PPN rate Patient receiving PPN at 23 ml/hr when this nurse came on shift. PPN had to be paused multiple times on day shift and night shift manager in order to administer medications as patient only had one IV and was refusing further sticks. When antibiotics and valproic acid were finished, PPN was restarted. Dr Ott was contacted regarding rate to resume PPN at. Received order to increase PPN to 43 ml/hr upon restarting.
[2024-03-04] MEDS: budesonide 0.5 mg/2 mL Neb INHALATION (07:44)
[2024-03-04] MEDS: ipratropium-albuterol 3 mL Neb INHALATION (07:44)
[2024-03-04 07:56] LABS: Glucose Point of Care 104 mg/dL (70-110)
[2024-03-04 07:56] LABS: Glucose Point of Care 108 mg/dL (70-110)
[2024-03-04] MEDS: multivitamin inj 10 ML in AA-Dex 4.25%-5% w/Lytes 1,000 ML 63 ML IV (08:43)
[2024-03-04 11:07] LABS: Vancomycin Trough 15.6 ug/mL (10-15)
[2024-03-04] MEDS: pantoprazole 40 mg SDV IVP (11:10)
[2024-03-04] MEDS: valproic acid inj 250 MG in sodium chloride 0.9% 50 ML 55 MG IV (11:10)
--- NOTE | 2024-03-04 11:10 | PC.NURSE ---
PPN paused for administration of valproic acid and other IV medications. Dr Clifton notified and is aware of need to pause PPN for IV medications.
[2024-03-04] MEDS: vancomycin 500 MG in sodium chloride 0.9% (plus) 100 ML 200 MG IV (11:48)
[2024-03-04] MEDS: lidocaine 5% Patch 1 PATCH TOPICAL (11:48)
[2024-03-04 12:05] LABS: Glucose Point of Care 121 mg/dL (70-110)
--- NOTE | 2024-03-04 13:00 | PC.NURSE ---
Pt stated just to let him go , if he wasn't going to be any good. Notified Dr. Clifton. PPN remains paused per direction from Dr Clifton, as she will come see and evaluate pt again.
[2024-03-04] MEDS: methylPREDNISolone sod succ 40 mg/mL INJ IVP (13:29)
--- NOTE | 2024-03-04 13:41 | P.PN_ITS ---
Subjective 2 Subjective: Seen earlier this morning. Patient awake alert sitting up in bed talking to his caregiver Cleo. Stated to the nurse that if I am not not any good I would like to end it and I want to stop all treatment. Does not want to go to rehab or long term and wants to go home. Has refused medications and IVs. 2 days prior patient indicated to me casey t he not want a feeding tube. Speech therapy again assessed patient today he is a high aspiration risk and unable to swallow at this time. He has been on PPN which was stopped yesterday night due to IV infiltration. Vitals/I&O/Wt Last Vital Signs Temp 97.3 F L 03/04/24 08:00 Pulse 62 03/04/24 11:00 Resp 20 H 03/04/24 11:00 BP 125/65 03/04/24 11:00 Pulse Ox 98 03/04/24 12:02 O2 Del Method Nasal Cannula 03/04/24 12:02 O2 Flow Rate 2 03/04/24 12:02 03/03/24 03/04/24 03/04/24 22:59 06:59 14:59 Intake Total 234.017 / 695.784 193.666 / 889.450 729.167 / 729.167 Output Total 650 / 650 Balance -415.983 / 45.784 193.666 / 239.450 729.167 / 729.167 Weight last 48 hrs Weight 60 kg Weight 59.874 kg Physical Exam 2 Narrative: Patient is alert oriented x 2, oriented to place and self. Answers questions appropriately this morning and is coherent. Chest clear to auscultation bilaterally Cardiovascular normal heart sounds no murmurs Abdomen soft nontender nondistended normal bowel sounds Extremities no edema noted bilateral lower extremity Data 03/04/24 04:35 03/04/24 04:35 Micro: Microbiology 03/02/24 12:40 Urine Culture - Preliminary Urine Suprapubic Yeast species 03/03/24 05:00 Blood Culture - Preliminary Blood NEGATIVE TO DATE 03/03/24 05:00 Blood Culture - Preliminary Blood NEGATIVE TO DATE A&P Assessment and plan (1) UTI (urinary tract infection): (2) Generalized weakness: (3) Atrial fibrillation: (4) COPD (chronic obstructive pulmonary disease): Qualifiers: COPD type: unspecified COPD Qualified Code(s): J44.9 - Chronic obstructive pulmonary disease, unspecified (5) Falls frequently: (6) Multilevel degenerative disc disease: (7) Altered mental status: Plan Doc S Sharon Matthew is a 78 year old male with past medical history of chronic urinary obstruction with suprapubic catheter, atrial fibrillation, stroke, hypertension, COPD, multilevel degenerative disc disease, spinal stenosis presented with complaint of weakness and a fall, abdominal pain, blocked suprapubic catheter and found to have WBC count of 18.5, UA strongly positive. Chest x-ray, CT head, CT AP negative for acute findings CT lumbar spine showed severe spondylosis with severe spinal canal stenosis at L4-L5 Severe bilateral neural foraminal narrowing from L2-L5, findings likely stable as compared to previous. Would need outpatient follow-up with spine surgeon. #Generalized weakness and abdominal pain likely secondary to UTI- Blocked suprapubic catheter replaced in ER UA strongly positive showing urine blood 2+ urine nitrate positive leukocyte esterase 3+, RBC 51-100, WBCs more than 100, urine bacteria 4+ Has history of recurrent UTI in the past Urine cultures reviewed showed Enterobacter and Susan in the past Received IV Zosyn 3.375 g x 1 in ED Will do IV Levaquin 750 mg daily Follow-up urine culture Encourage p.o. fluid intake #A-fib with RVR-resolved, currently in sinus rhythm Continue home medications metoprolol 25 mg twice daily Continue OIL INSPECTOR torsemide and potassium chloride He is not on chronic anticoagulation for A-fib being a fall risk. ECHO 06/15 LV systolic function is normal with EF of 60-65% Trace mitral regurgitation Trace tricuspid regurgitation #COPD-stable Continue nebulizers as needed #Depression-continue OIL INSPECTOR Depakote and fluoxetine DVT prophylaxis with subcutaneous Lovenox GI prophylaxis with IV Pepcid 20 mg twice daily CODE STATUS discussed with the patient, he is full code. 02/22/24 This afternoon patient was found to be agitated, verbally abusive and hitting. Was given 1 mg of IV Ativan which calmed him down and he has been resting well since then. Symptoms likely due to hospital induced delirium versus dementia with behavioral disturbances. Will continue to monitor. Creatinine trending up to 1.5 likely secondary to poor p.o. intake. Will hold OIL INSPECTOR torsemide for now Urine culture positive for gram-positive cocci. Continue levofloxacin, IV vancomycin added. Leukocytosis improved to 12.1 Will do IV Ativan 1 mg every 4 hours as needed and IV Haldol 1 mg every 4 hours as needed alternating for agitation. Will need case management consult for discharge planning 02/23/24 He continues to be confused and agitated. Has been on IV Ativan and Haldol as needed. He came from home on admission but would need case management for discharge planning to a subacute or assisted living facility. Has urine culture showing gram-negative rods and bulk blood culture showing gram-positive rods hence on IV vancomycin and levofloxacin. Follow-up final cultures and the need for ID consult for discharge antibiotics. Leukocytosis resolved, creatinine improved to 1.2. 02/24/24 He has been hemodynamically stable but agitated and confused has been needing as needed IV Ativan. He has been refusing IVs, spitting out medications and refusing food. Needs to follow-up with case management for safe discharge planning. He was living at home alone with a county home demonstrator coming in for few hours. 02/25/2024 Patient had 1 mg of Ativan given at 3 AM. Too sleepy in the morning. I will discontinue further Ativan at this time. ? He has not really talked to me or answer any questions. Did not work with physical therapy either was able to sit on his edge of the bed however is a maximum assist at this time. Has been refusing food and medications upon reviewing previous notes. ? Will attempt to reach to family to gather what his baseline is. Patient is unsafe to go home at this time. He may perhaps qualify for [place] however he is not participating with physical therapy. He may have to go to a dementia unit. ? Continue to treat with Zyvox and ciprofloxacin at this time. ? He is has had a previous stroke in the past. ? Continue to treat for UTI. ? CT head negative at admission. CT abdomen pelvis shows no acute findings done at admission. ? Will repeat CT head today. 02/26/2024 CT head rule out stroke ? Hypernatremia. Sodium 157 ? Placed on D5 water 75 cc/h ? Has been spiking fevers overnight. Will repeat blood cultures today ? Switch to IV Zyvox and IV meropenem. ? Continue medical management at this time. Continue Depakote at bedtime. ? Recheck labs daily CBC CMP magnesium. -Discussed with nursing staff, caregiver at bedside. 02/27/2024 I got a call from the nurse later on close to 11:00 that patient was tachypneic hypotensive and had worsening tachycardia. Patient had recently eaten. There is a question he may have aspirated. Went to evaluate patient at bedside. He was tachypneic and was using accessory muscles to breathe. Hypotensive with systolic blood pressure down to 77. 500 cc normal saline bolus given. Chest x- ray reviewed no evidence of acute infiltrate or pulmonary edema at this time. Lungs clear to auscultation. Fluids ordered. Patient transferred to ICU. Continue nasal cannula at this time and requested suctioning. Upon arriving to ICU patient was given amiodarone bolus additionally and amiodarone drip was continued. Patient's condition did improve and did not require BiPAP. On 4 L nasal cannula. Around 11:00 he also had a temperature of 100.4. Patient is being covered with antibiotics at this time. He was seen by speech therapy who have recommended n.p.o. status. He does have coughing episodes while after oral consumption. There is possibility of pharyngeal residue or possibly reflux. We will be pursuing a modified barium swallow. Potassium 3.3 this morning. IV potassium has been ordered. - Continue D5 water at 75 cc/h ? Repeat blood cultures negative so far ? Continue IV Zyvox IV meropenem. ? Continue Depakote at bedtime ? Discussed with nursing staff ? Discussed with speech therapist. ? Plan for modified barium swallow. ? Continue to monitor in ICU today. Keep patient n.p.o. status. ? Continue amiodarone drip. Will transition to oral amnio 400 daily after 24 hours. ? Hemoglobin 10.8, stable. Will place on Eliquis 5 twice daily at discharge. for now add therapeutic lovenox ? Placed on thiamine, folic acid. ? Will check phosphorus. ? Continue Levophed and wean off as able. 02/28/2024 -Seen this morning. Sodium 149. ? Amiodarone drip turned off overnight as patient was becoming bradycardic. ? He is refusing treatment. Refusing IV, medications. ? [place] negative at 6 hours. ? Patient is alert and oriented to self. ? Currently NPO. ? She has refused modified barium swallow this morning. ? Speech therapy to work with patient. ? PT OT ordered. ? Patient is not safe to go home alone. He does have a caregiver that comes 37 hours a week however other than that he is alone rest of the time. He is currently a maximum assist. ? Has severe deconditioning. ? Continue linezolid, meropenem ? Urine culture negative. ? Blood culture pending ? D5 water restarted. ? We will need to set up placement for the patient. Unable to have a goals of care discussion. Patient does not have a DPOA. ? Most likely has hospital-acquired delirium with component of hypernatremia, metabolic encephalopathy. ? Patient is at risk of aspiration. 02/29/2024 ?No DPOA. ? Caregiver present at bedside. She cannot make medical decisions at this time. Discussed with her regarding pursuing guardianship possibly. poultry farmworker will speak to them. ? Patient refusing treatment at times and at other times taking tablets. ? Currently n.p.o. Is a severe aspiration risk. Speech therapy has evaluated multiple times. ? Patient severely deconditioned and has had a decline since admission. Unsafe to go home alone. ? Not following commands today and has some garbled speech and unable to move bilateral lower extremities and right extremity. Unsure if he cannot move it versus he has had a cerebrovascular event. Does have atrial fibrillation. Is on therapeutic Lovenox at this time as well. We will give Ativan for light sedation and check MRI brain today. Will also produce CTA head and neck to rule out stroke. ? Will have to assess brain imaging going forward patient may need a PEG tube. ? As per caregiver he wanted all life-saving measures if possible. Patient is full code. ? Continue to D5 half-normal saline at 100 cc/h. Will place dietitian consult for PPN temporarily. ?He has been febrile and aspirating. Will order rectal Tylenol ? Continue amiodarone drip. ? Will switch Depakote to IV. ? Continue meropenem, linezolid. ? Continue Protonix 40 IV daily -Discussed with caregiver, nursing staff, pharmacy, director of social media marketing 03/01/2024 -Amiodarone drip was stopped yesterday. Patient has been placed on metoprolol 2.5 IV every 4 hours as needed. ? Continue therapeutic Lovenox. Switch to Eliquis at discharge. ? Currently n.p.o. and is a severe aspiration risk. With mental status slightly improving and speech slightly improving we will have speech therapy assess again on Sunday. Continue PPN at this time. ? MRI brain has ruled out a stroke. CTA head and neck also within normal limits. ? Patient is severely deconditioned and weak with failure to thrive. Severe protein calorie malnutrition. ? Continue D5 half-normal saline at 100 cc/h. Patient was aspirating and was febrile however overnight has been afebrile. Continue rectal Tylenol. ? For shoulder pain we will order morphine 2 mg every 6 hours as needed. ? Check right shoulder x-ray, chest x-ray today. ? Continue Depakote IV, meropenem, linezolid. Stop antibiotics after 10 days total. ? Leukocytosis WBC 16,000. Most likely reactive and with recurrent aspiration. -Patient will need [place] [facility] at discharge. Once mental status improves further. Will address goals of care with him and disposition. Continue current management for now. Provide nutrition through PPN. Hopefully patient would let us do modified barium swallow 03/02/2024 -Patient much more coherent today. In my clinical judgment he has capacity based on my conversation with him today. Nursing staff present during most of the conversation. I will change his CODE STATUS to DNR/DNI as per his wishes. ? Continue PPN today. Have him assessed by speech therapy again in the morning. ? Did have a discussion with patient regarding disposition. He states he would like to go home. I will have physical therapy see him again tomorrow. Patient may need short-term rehab stay so that he may be able to transfer from wheelchair to bed which was his baseline. He is definitely deconditioned. ? WBC count 18,[address] chest and pelvis. He has had chronically elevated WBC in the past however with fever and aspiration last few days we will continue to monitor. ? Continue IV Depakote, meropenem. Stop linezolid switched to vancomycin. ? Will consider checking a lumbar puncture however we will hold off on that at this point, mental status is better. ? Speech therapy, physical therapy evaluation again in a.m. ? Once able to take oral medications we will place on oral amiodarone. ? Continue therapeutic Lovenox at this time, Eliquis at discharge 03/03/2024 -Continue PPN ? Continue IV antibiotics. ? CT chest abdomen pelvis reviewed. Evidence of pneumonia ? Continue vancomycin, meropenem ? Patient is improving however severely deconditioned. Will need rehab at discharge. ? This morning agreed to go to rehab with director of social media marketing. ? Recently received morphine and therefore has gone back to sleep. ? Check speech therapy evaluation once awake. ? Once able to tolerate oral we will transition to oral medications. ? 03/04/2024 ?Patient currently on vancomycin and meropenem. Severely deconditioned has refused rehab. Mental status has improved. Speech therapy has reevaluated the patient. Patient still a very high aspiration risk. Recommended to keep NPO. He has refused a modified barium swallow. Patient is indicated that he does not want any further care. He would like to be let go . He indicated to his caregiver upon admission that he was done and did not want any treatment. Caregiver confirms this yesterday. PPN will be stopped. Patient does not want a feeding tube was indicated to me few days ago. he told nursing staff he wants to be let go he is confused at this time. will re-evaluate - have discussed hospice to [place] with director of social media marketing. Attestations 2 Medical Necessity Statement*: Severely deconditioned, unable to swallow. Currently on PPN. Requires continued hospitalization. Diagnoses UTI (urinary tract infection) N39.0 Generalized weakness R53.1 Atrial fibrillation I48.91 Chronic obstructive pulmonary disease, unspecified COPD type J44.9 COPD type: unspecified COPD Falls frequently R29.6 Multilevel degenerative disc disease M53.9 Altered mental status R41.82
--- NOTE | 2024-03-04 14:45 | PC.NURSE ---
Pt verbalized his agreement and understanding of going to a half-way for end of life care. This nurse witnessed his discussion with CHRIS [employer] management supervisor concerning his lack of being able to swallow, en of life care and verbalizing to [place] rep. his consent for half-way placement for end of life care.
--- NOTE | 2024-03-04 15:02 | W.PM.EVENTAC ---
Event Note Event Note: Patient here with dysphagia, weakness, history of urinary retention, UTI, A-fib, COPD. Placed on peripheral nutrition as he has not been able to eat by mouth. When I talked with the patient today, he knew his name, birthday, service. I told him that as he was unable to swallow currently, without a feeding tube he would potentially . I asked him if he would want a feeding tube and he says no . I asked him if he understood that this refusal may ultimately do his and he said exactly . He has refused feeding tube with his current caregiver as well, and it is documented he has had intermittent confusion. After reviewing his chart, talking with the patient, I do believe the patient at this given time is decisional, refuses a feeding tube, and knows its implications. He is amenable to going on comfort care, and realizes he may if he tries to take food or liquid by mouth. I believe his treatment decision regarding this considering his comorbidities is reasonable.
[2024-03-04 16:15] LABS: Glucose Point of Care 117 mg/dL (70-110)
--- NOTE | 2024-03-04 19:32 | PC.NURSE ---
Shift summary: Pt rested in bed throughout the shift. He has been alert to self, , and place today. He has been pleasant, sitting up in the bed, chatting and smiling with staff. Amio gtt remains infusing at 0.5mg.hr, PPN discontinued this shift. Sinus rhythm noted on monitor. He has expressed his wish to just be comfortable. He expressed this sentiment: I do not know what will happen but I will know when I get there. He has stated to multiple staff, including physicians, that he knows he does not swallow well but he does not want a feeding tube. Just let me go. Supra pubic urine cath intact and draining, He had 450 ml of yellow urinary output. He has denied the need for pain meds even though at times he states his muscles hurt. He does have a lidocaine patch in place on his back for his back pains. . He is very weak and unable to make any significant movements. His right arm more so than the rest of him.
[2024-03-05] VITALS: PULSE 57; RESP 19; O2SAT 94
--- NOTE | 2024-03-05 00:22 | PC.NURSE ---
Arrival to [facility]: Arrived @0015, reporting severe pain post bed switch, see 'MAR' for medication administration.
[2024-03-05 00:26] VITALS: RESP 24; O2SAT 96
[2024-03-05] MEDS: morphine 4 mg/mL SDV 1 mL IVP (00:26)
[2024-03-05] MEDS: LORazepam 2 mg/mL INJ 1 mL IVP (00:26)
--- NOTE | 2024-03-05 00:26 | PC.NURSE ---
Transfer Transferred to [facility] bed 271. Belongings brought with patient. CHRIS Tena at bedside on arrival. Patient was pleasant and cooperative.
[2024-03-05 00:30] VITALS: BP 148/72; PULSE 63; RESP 17; TEMP 36.7; O2SAT 96
[2024-03-05 03:38] VITALS: BP 131/67; PULSE 56; RESP 17; TEMP 36.8; O2SAT 91
[2024-03-05 06:35] LABS: Glucose Point of Care 103 mg/dL (70-110)
[2024-03-05 10:00] VITALS: PULSE 65; RESP 16; O2SAT 90
--- NOTE | 2024-03-05 11:43 | PC.NURSE ---
Dr. Clifton gave verbal orders to discontinue Thiamine for comfort care patient.
[2024-03-05] MEDS: lidocaine 5% Patch 1 PATCH TOPICAL (11:52)
--- NOTE | 2024-03-05 12:05 | PC.SOCIAL ---
IMM Update Pg. 2 of IMM updated. Initialed, dated, and timed, copy provided at bedside.
--- NOTE | 2024-03-05 13:07 | PM.PN ---
Vitals/I&O/Wt Last Vital Signs Temp 98.2 F 03/05/24 03:38 Pulse 65 03/05/24 10:00 Resp 16 03/05/24 10:00 BP 131/67 03/05/24 03:38 Pulse Ox 90 03/05/24 10:00 O2 Del Method Room Air 03/05/24 10:00 O2 Flow Rate 2 03/04/24 12:02 03/04/24 03/05/24 03/05/24 22:59 06:59 14:59 Intake Total 192.261 / 1073.928 0 / 1073.928 Output Total 650 / 650 300 / 950 Balance -457.739 / 423.928 -300 / 123.928 Weight last 48 hrs Weight 60 kg Weight 60 kg Physical Exam Narrative: limited exam due to comfort measures status Appears to be comfortable at this time. lungs cta b/l abd soft nontender Urinary Catheter Management: Suprapubic: Cath Placed During This Visit: no Reason for Continuing Indwelling Catheter: Hospice/Comfort/Palliative Care Data 03/04/24 04:35 03/04/24 04:35 Micro: Microbiology 03/02/24 12:40 Urine Culture - Preliminary Urine Suprapubic Yeast species A&P Assessment and plan (1) UTI (urinary tract infection): (2) Generalized weakness: (3) Atrial fibrillation: (4) COPD (chronic obstructive pulmonary disease): Qualifiers: COPD type: unspecified COPD Qualified Code(s): J44.9 - Chronic obstructive pulmonary disease, unspecified (5) Falls frequently: (6) Multilevel degenerative disc disease: (7) Altered mental status: Plan Doc S Sharon Matthew is a 78 year old male with past medical history of chronic urinary obstruction with suprapubic catheter, atrial fibrillation, stroke, hypertension, COPD, multilevel degenerative disc disease, spinal stenosis presented with complaint of weakness and a fall, abdominal pain, blocked suprapubic catheter and found to have WBC count of 18.5, UA strongly positive. Chest x-ray, CT head, CT AP negative for acute findings CT lumbar spine showed severe spondylosis with severe spinal canal stenosis at L4-L5 Severe bilateral neural foraminal narrowing from L2-L5, findings likely stable as compared to previous. Would need outpatient follow-up with spine surgeon. #Generalized weakness and abdominal pain likely secondary to UTI- Blocked suprapubic catheter replaced in ER UA strongly positive showing urine blood 2+ urine nitrate positive leukocyte esterase 3+, RBC 51-100, WBCs more than 100, urine bacteria 4+ Has history of recurrent UTI in the past Urine cultures reviewed showed Enterobacter and Susan in the past Received IV Zosyn 3.375 g x 1 in ED Will do IV Levaquin 750 mg daily Follow-up urine culture Encourage p.o. fluid intake #A-fib with RVR-resolved, currently in sinus rhythm Continue home medications metoprolol 25 mg twice daily Continue [employer] torsemide and potassium chloride He is not on chronic anticoagulation for A-fib being a fall risk. ECHO 06/15 LV systolic function is normal with EF of 60-65% Trace mitral regurgitation Trace tricuspid regurgitation #COPD-stable Continue nebulizers as needed #Depression-continue [employer] Depakote and fluoxetine DVT prophylaxis with subcutaneous Lovenox GI prophylaxis with IV Pepcid 20 mg twice daily CODE STATUS discussed with the patient, he is full code. 02/22/24 This afternoon patient was found to be agitated, verbally abusive and hitting. Was given 1 mg of IV Ativan which calmed him down and he has been resting well since then. Symptoms likely due to hospital induced delirium versus dementia with behavioral disturbances. Will continue to monitor. Creatinine trending up to 1.5 likely secondary to poor p.o. intake. Will hold [employer] torsemide for now Urine culture positive for gram-positive cocci. Continue levofloxacin, IV vancomycin added. Leukocytosis improved to 12.1 Will do IV Ativan 1 mg every 4 hours as needed and IV Haldol 1 mg every 4 hours as needed alternating for agitation. Will need case management consult for discharge planning 02/23/24 He continues to be confused and agitated. Has been on IV Ativan and Haldol as needed. He came from home on admission but would need case management for discharge planning to a subacute or assisted living facility. Has urine culture showing gram-negative rods and bulk blood culture showing gram-positive rods hence on IV vancomycin and levofloxacin. Follow-up final cultures and the need for ID consult for discharge antibiotics. Leukocytosis resolved, creatinine improved to 1.2. 02/24/24 He has been hemodynamically stable but agitated and confused has been needing as needed IV Ativan. He has been refusing IVs, spitting out medications and refusing food. Needs to follow-up with case management for safe discharge planning. He was living at home alone with a home care manager coming in for few hours. 02/25/2024 Patient had 1 mg of Ativan given at 3 AM. Too sleepy in the morning. I will discontinue further Ativan at this time. ? He has not really talked to me or answer any questions. Did not work with physical therapy either was able to sit on his edge of the bed however is a maximum assist at this time. Has been refusing food and medications upon reviewing previous notes. ? Will attempt to reach to family to gather what his baseline is. Patient is unsafe to go home at this time. He may perhaps qualify for fdc facility however he is not participating with physical therapy. He may have to go to a dementia unit. ? Continue to treat with Zyvox and ciprofloxacin at this time. ? He is has had a previous stroke in the past. ? Continue to treat for UTI. ? CT head negative at admission. CT abdomen pelvis shows no acute findings done at admission. ? Will repeat CT head today. 02/26/2024 CT head rule out stroke ? Hypernatremia. Sodium 157 ? Placed on D5 water 75 cc/h ? Has been spiking fevers overnight. Will repeat blood cultures today ? Switch to IV Zyvox and IV meropenem. ? Continue medical management at this time. Continue Depakote at bedtime. ? Recheck labs daily CBC CMP magnesium. -Discussed with nursing staff, caregiver at bedside. 02/27/2024 I got a call from the nurse later on close to 11:00 that patient was tachypneic hypotensive and had worsening tachycardia. Patient had recently eaten. There is a question he may have aspirated. Went to evaluate patient at bedside. He was tachypneic and was using accessory muscles to breathe. Hypotensive with systolic blood pressure down to 77. 500 cc normal saline bolus given. Chest x-ray reviewed no evidence of acute infiltrate or pulmonary edema at this time. Lungs clear to auscultation. Fluids ordered. Patient transferred to ICU. Continue nasal cannula at this time and requested suctioning. Upon arriving to ICU patient was given amiodarone bolus additionally and amiodarone drip was continued. Patient's condition did improve and did not require BiPAP. On 4 L nasal cannula. Around 11:00 he also had a temperature of 100.4. Patient is being covered with antibiotics at this time. He was seen by speech therapy who have recommended n.p.o. status. He does have coughing episodes while after oral consumption. There is possibility of pharyngeal residue or possibly reflux. We will be pursuing a modified barium swallow. Potassium 3.3 this morning. IV potassium has been ordered. - Continue D5 water at 75 cc/h ? Repeat blood cultures negative so far ? Continue IV Zyvox IV meropenem. ? Continue Depakote at bedtime ? Discussed with nursing staff ? Discussed with speech therapist. ? Plan for modified barium swallow. ? Continue to monitor in ICU today. Keep patient n.p.o. status. ? Continue amiodarone drip. Will transition to oral amnio 400 daily after 24 hours. ? Hemoglobin 10.8, stable. Will place on Eliquis 5 twice daily at discharge. for now add therapeutic lovenox ? Placed on thiamine, folic acid. ? Will check phosphorus. ? Continue Levophed and wean off as able. 02/28/2024 -Seen this morning. Sodium 149. ? Amiodarone drip turned off overnight as patient was becoming bradycardic. ? He is refusing treatment. Refusing IV, medications. ? [place] negative at 6 hours. ? Patient is alert and oriented to self. ? Currently NPO. ? She has refused modified barium swallow this morning. ? Speech therapy to work with patient. ? PT OT ordered. ? Patient is not safe to go home alone. He does have a caregiver that comes 37 hours a week however other than that he is alone rest of the time. He is currently a maximum assist. ? Has severe deconditioning. ? Continue linezolid, meropenem ? Urine culture negative. ? Blood culture pending ? D5 water restarted. ? We will need to set up placement for the patient. Unable to have a goals of care discussion. Patient does not have a DPOA. ? Most likely has hospital-acquired delirium with component of hypernatremia, metabolic encephalopathy. ? Patient is at risk of aspiration. 02/29/2024 ?No DPOA. ? Caregiver present at bedside. She cannot make medical decisions at this time. Discussed with her regarding pursuing guardianship possibly. [employer] worker will speak to them. ? Patient refusing treatment at times and at other times taking tablets. ? Currently n.p.o. Is a severe aspiration risk. Speech therapy has evaluated multiple times. ? Patient severely deconditioned and has had a decline since admission. Unsafe to go home alone. ? Not following commands today and has some garbled speech and unable to move bilateral lower extremities and right extremity. Unsure if he cannot move it versus he has had a cerebrovascular event. Does have atrial fibrillation. Is on therapeutic Lovenox at this time as well. We will give Ativan for light sedation and check MRI brain today. Will also produce CTA head and neck to rule out stroke. ? Will have to assess brain imaging going forward patient may need a PEG tube. ? As per caregiver he wanted all life-saving measures if possible. Patient is full code. ? Continue to D5 half-normal saline at 100 cc/h. Will place dietitian consult for PPN temporarily. ?He has been febrile and aspirating. Will order rectal Tylenol ? Continue amiodarone drip. ? Will switch Depakote to IV. ? Continue meropenem, linezolid. ? Continue Protonix 40 IV daily -Discussed with caregiver, nursing staff, pharmacy, health care social worker 03/01/2024 -Amiodarone drip was stopped yesterday. Patient has been placed on metoprolol 2.5 IV every 4 hours as needed. ? Continue therapeutic Lovenox. Switch to Eliquis at discharge. ? Currently n.p.o. and is a severe aspiration risk. With mental status slightly improving and speech slightly improving we will have speech therapy assess again on Sunday. Continue PPN at this time. ? MRI brain has ruled out a stroke. CTA head and neck also within normal limits. ? Patient is severely deconditioned and weak with failure to thrive. Severe protein calorie malnutrition. ? Continue D5 half-normal saline at 100 cc/h. Patient was aspirating and was febrile however overnight has been afebrile. Continue rectal Tylenol. ? For shoulder pain we will order morphine 2 mg every 6 hours as needed. ? Check right shoulder x-ray, chest x-ray today. ? Continue Depakote IV, meropenem, linezolid. Stop antibiotics after 10 days total. ? Leukocytosis WBC 16,000. Most likely reactive and with recurrent aspiration. -Patient will need fdc facility at discharge. Once mental status improves further. Will address goals of care with him and disposition. Continue current management for now. Provide nutrition through PPN. Hopefully patient would let us do modified barium swallow 03/02/2024 -Patient much more coherent today. In my clinical judgment he has capacity based on my conversation with him today. Nursing staff present during most of the conversation. I will change his CODE STATUS to DNR/DNI as per his wishes. ? Continue PPN today. Have him assessed by speech therapy again in the morning. ? Did have a discussion with patient regarding disposition. He states he would like to go home. I will have physical therapy see him again tomorrow. Patient may need short-term rehab stay so that he may be able to transfer from wheelchair to bed which was his baseline. He is definitely deconditioned. ? WBC count 18,[address] chest and pelvis. He has had chronically elevated WBC in the past however with fever and aspiration last few days we will continue to monitor. ? Continue IV Depakote, meropenem. Stop linezolid switched to vancomycin. ? Will consider checking a lumbar puncture however we will hold off on that at this point, mental status is better. ? Speech therapy, physical therapy evaluation again in a.m. ? Once able to take oral medications we will place on oral amiodarone. ? Continue therapeutic Lovenox at this time, Eliquis at discharge 03/03/2024 -Continue PPN ? Continue IV antibiotics. ? CT chest abdomen pelvis reviewed. Evidence of pneumonia ? Continue vancomycin, meropenem ? Patient is improving however severely deconditioned. Will need rehab at discharge. ? This morning agreed to go to rehab with health care social worker. ? Recently received morphine and therefore has gone back to sleep. ? Check speech therapy evaluation once awake. ? Once able to tolerate oral we will transition to oral medications. 03/04/2024 ?Patient currently on vancomycin and meropenem. Severely deconditioned has refused rehab. Mental status has improved. Speech therapy has reevaluated the patient. Patient still a very high aspiration risk. Recommended to keep NPO. He has refused a modified barium swallow. Patient is indicated that he does not want any further care. He would like to be let go . He indicated to his caregiver upon admission that he was done and did not want any treatment. Caregiver confirms this yesterday. PPN will be stopped. Patient does not want a feeding tube was indicated to me few days ago. he told nursing staff he wants to be let go he is confused at this time. will re-evaluate - have discussed hospice to [facility] with health care social worker. 03/05/2024 - comfort measures status - awaiting placement to [facility] Attestations Medical Necessity Statement*: comfort measures status Diagnoses UTI (urinary tract infection) N39.0 Generalized weakness R53.1 Atrial fibrillation I48.91 Chronic obstructive pulmonary disease, unspecified COPD type J44.9 COPD type: unspecified COPD Falls frequently R29.6 Multilevel degenerative disc disease M53.9 Altered mental status R41.82
[2024-03-06] MEDS: lidocaine 5% Patch 1 PATCH TOPICAL (10:52)
[2024-03-06] MEDS: fluoxetine 20 mg Capsule 60 MG PO (10:53)
[2024-03-06 11:41] VITALS: BP 136/68; PULSE 87; RESP 18; TEMP 36.8; O2SAT 92
--- NOTE | 2024-03-06 16:14 | PM.PN ---
Subjective Subjective: Seen today. Patient eating pudding with his home medications with nursing staff present. Ethics meeting conducted this morning. Patient will be allowed to eat with dysphagia diet. There is a high risk of aspiration however patient may feed by mouth for comfort and pleasure. Patient alert oriented x 2 this morning. Other than knowing who the president is he knows he is in the hospital. Discussed with him regarding feeding tube once again today. He states kiss my ass I will still eat with by mouth . 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 He also talked about how the president sent man over to another country to and he was upset over this. He stated for this reason he would not like to take the president's name. Doc is very appropriate this morning. He will make comments at some point which do not make sense however for the most part is able to have a conversation. Appears comfortable at this time sitting up in bed laughing Vitals/I&O/Wt Last Vital Signs Temp 98.3 F 03/06/24 11:41 Pulse 87 03/06/24 11:41 Resp 18 03/06/24 11:41 BP 136/68 03/06/24 11:41 Pulse Ox 92 03/06/24 11:41 O2 Del Method Room Air 03/06/24 11:41 O2 Flow Rate 2 03/04/24 12:02 03/06/24 03/06/24 03/06/24 06:59 14:59 22:59 Intake Total 60 / 60 240 / 240 Output Total 100 / 1200 Balance -40 / -1140 240 / 240 Weight last 48 hrs Weight 60.056 kg Weight 60 kg Physical Exam Narrative: limited exam due to comfort measures status Appears to be comfortable at this time. lungs cta b/l abd soft nontender Able to move bilateral upper extremities. Urinary Catheter Management: Suprapubic: Cath Placed During This Visit: no Reason for Continuing Indwelling Catheter: Hospice/Comfort/Palliative Care Data 03/04/24 04:35 03/04/24 04:35 Micro: Microbiology 03/02/24 12:40 Urine Culture - Final Urine Suprapubic Rhodotorula pilimanae A&P Assessment and plan (1) UTI (urinary tract infection): (2) Generalized weakness: (3) Atrial fibrillation: (4) COPD (chronic obstructive pulmonary disease): Qualifiers: COPD type: unspecified COPD Qualified Code(s): J44.9 - Chronic obstructive pulmonary disease, unspecified (5) Falls frequently: (6) Multilevel degenerative disc disease: (7) Altered mental status: Plan Doc S Sharon Matthew is a 78 year old male with past medical history of chronic urinary obstruction with suprapubic catheter, atrial fibrillation, stroke, hypertension, COPD, multilevel degenerative disc disease, spinal stenosis presented with complaint of weakness and a fall, abdominal pain, blocked suprapubic catheter and found to have WBC count of 18.5, UA strongly positive. Chest x-ray, CT head, CT AP negative for acute findings CT lumbar spine showed severe spondylosis with severe spinal canal stenosis at L4-L5 Severe bilateral neural foraminal narrowing from L2-L5, findings likely stable as compared to previous. Would need outpatient follow-up with spine surgeon. #Generalized weakness and abdominal pain likely secondary to UTI- Blocked suprapubic catheter replaced in ER UA strongly positive showing urine blood 2+ urine nitrate positive leukocyte esterase 3+, RBC 51-100, WBCs more than 100, urine bacteria 4+ Has history of recurrent UTI in the past Urine cultures reviewed showed Enterobacter and Susan in the past Received IV Zosyn 3.375 g x 1 in ED Will do IV Levaquin 750 mg daily Follow-up urine culture Encourage p.o. fluid intake #A-fib with RVR-resolved, currently in sinus rhythm Continue home medications metoprolol 25 mg twice daily Continue ALTERATIONS MANAGER torsemide and potassium chloride He is not on chronic anticoagulation for A-fib being a fall risk. ECHO 06/15 LV systolic function is normal with EF of 60-65% Trace mitral regurgitation Trace tricuspid regurgitation #COPD-stable Continue nebulizers as needed #Depression-continue ALTERATIONS MANAGER Depakote and fluoxetine DVT prophylaxis with subcutaneous Lovenox GI prophylaxis with IV Pepcid 20 mg twice daily CODE STATUS discussed with the patient, he is full code. 02/22/24 This afternoon patient was found to be agitated, verbally abusive and hitting. Was given 1 mg of IV Ativan which calmed him down and he has been resting well since then. Symptoms likely due to hospital induced delirium versus dementia with behavioral disturbances. Will continue to monitor. Creatinine trending up to 1.5 likely secondary to poor p.o. intake. Will hold ALTERATIONS MANAGER torsemide for now Urine culture positive for gram-positive cocci. Continue levofloxacin, IV vancomycin added. Leukocytosis improved to 12.1 Will do IV Ativan 1 mg every 4 hours as needed and IV Haldol 1 mg every 4 hours as needed alternating for agitation. Will need case management consult for discharge planning 02/23/24 He continues to be confused and agitated. Has been on IV Ativan and Haldol as needed. He came from home on admission but would need case management for discharge planning to a subacute or assisted living facility. Has urine culture showing gram-negative rods and bulk blood culture showing gram-positive rods hence on IV vancomycin and levofloxacin. Follow-up final cultures and the need for ID consult for discharge antibiotics. Leukocytosis resolved, creatinine improved to 1.2. 02/24/24 He has been hemodynamically stable but agitated and confused has been needing as needed IV Ativan. He has been refusing IVs, spitting out medications and refusing food. Needs to follow-up with case management for safe discharge planning. He was living at home alone with a county home demonstration agent coming in for few hours. 02/25/2024 Patient had 1 mg of Ativan given at 3 AM. Too sleepy in the morning. I will discontinue further Ativan at this time. ? He has not really talked to me or answer any questions. Did not work with physical therapy either was able to sit on his edge of the bed however is a maximum assist at this time. Has been refusing food and medications upon reviewing previous notes. ? Will attempt to reach to family to gather what his baseline is. Patient is unsafe to go home at this time. He may perhaps qualify for group home facility however he is not participating with physical therapy. He may have to go to a dementia unit. ? Continue to treat with Zyvox and ciprofloxacin at this time. ? He is has had a previous stroke in the past. ? Continue to treat for UTI. ? CT head negative at admission. CT abdomen pelvis shows no acute findings done at admission. ? Will repeat CT head today. 02/26/2024 CT head rule out stroke ? Hypernatremia. Sodium 157 ? Placed on D5 water 75 cc/h ? Has been spiking fevers overnight. Will repeat blood cultures today ? Switch to IV Zyvox and IV meropenem. ? Continue medical management at this time. Continue Depakote at bedtime. ? Recheck labs daily CBC CMP magnesium. -Discussed with nursing staff, caregiver at bedside. 02/27/2024 I got a call from the nurse later on close to 11:00 that patient was tachypneic hypotensive and had worsening tachycardia. Patient had recently eaten. There is a question he may have aspirated. Went to evaluate patient at bedside. He was tachypneic and was using accessory muscles to breathe. Hypotensive with systolic blood pressure down to 77. 500 cc normal saline bolus given. Chest x-ray reviewed no evidence of acute infiltrate or pulmonary edema at this time. Lungs clear to auscultation. Fluids ordered. Patient transferred to ICU. Continue nasal cannula at this time and requested suctioning. Upon arriving to ICU patient was given amiodarone bolus additionally and amiodarone drip was continued. Patient's condition did improve and did not require BiPAP. On 4 L nasal cannula. Around 11:00 he also had a temperature of 100.4. Patient is being covered with antibiotics at this time. He was seen by speech therapy who have recommended n.p.o. status. He does have coughing episodes while after oral consumption. There is possibility of pharyngeal residue or possibly reflux. We will be pursuing a modified barium swallow. Potassium 3.3 this morning. IV potassium has been ordered. - Continue D5 water at 75 cc/h ? Repeat blood cultures negative so far ? Continue IV Zyvox IV meropenem. ? Continue Depakote at bedtime ? Discussed with nursing staff ? Discussed with speech therapist. ? Plan for modified barium swallow. ? Continue to monitor in ICU today. Keep patient n.p.o. status. ? Continue amiodarone drip. Will transition to oral amnio 400 daily after 24 hours. ? Hemoglobin 10.8, stable. Will place on Eliquis 5 twice daily at discharge. for now add therapeutic lovenox ? Placed on thiamine, folic acid. ? Will check phosphorus. ? Continue Levophed and wean off as able. 02/28/2024 -Seen this morning. Sodium 149. ? Amiodarone drip turned off overnight as patient was becoming bradycardic. ? He is refusing treatment. Refusing IV, medications. ? [place] negative at 6 hours. ? Patient is alert and oriented to self. ? Currently NPO. ? She has refused modified barium swallow this morning. ? Speech therapy to work with patient. ? PT OT ordered. ? Patient is not safe to go home alone. He does have a caregiver that comes 37 hours a week however other than that he is alone rest of the time. He is currently a maximum assist. ? Has severe deconditioning. ? Continue linezolid, meropenem ? Urine culture negative. ? Blood culture pending ? D5 water restarted. ? We will need to set up placement for the patient. Unable to have a goals of care discussion. Patient does not have a DPOA. ? Most likely has hospital-acquired delirium with component of hypernatremia, metabolic encephalopathy. ? Patient is at risk of aspiration. 02/29/2024 ?No DPOA. ? Caregiver present at bedside. She cannot make medical decisions at this time. Discussed with her regarding pursuing guardianship possibly. community outreach worker will speak to them. ? Patient refusing treatment at times and at other times taking tablets. ? Currently n.p.o. Is a severe aspiration risk. Speech therapy has evaluated multiple times. ? Patient severely deconditioned and has had a decline since admission. Unsafe to go home alone. ? Not following commands today and has some garbled speech and unable to move bilateral lower extremities and right extremity. Unsure if he cannot move it versus he has had a cerebrovascular event. Does have atrial fibrillation. Is on therapeutic Lovenox at this time as well. We will give Ativan for light sedation and check MRI brain today. Will also produce CTA head and neck to rule out stroke. ? Will have to assess brain imaging going forward patient may need a PEG tube. ? As per caregiver he wanted all life-saving measures if possible. Patient is full code. ? Continue to D5 half-normal saline at 100 cc/h. Will place dietitian consult for PPN temporarily. ?He has been febrile and aspirating. Will order rectal Tylenol ? Continue amiodarone drip. ? Will switch Depakote to IV. ? Continue meropenem, linezolid. ? Continue Protonix 40 IV daily -Discussed with caregiver, nursing staff, pharmacy, medical social worker 03/01/2024 -Amiodarone drip was stopped yesterday. Patient has been placed on metoprolol 2.5 IV every 4 hours as needed. ? Continue therapeutic Lovenox. Switch to Eliquis at discharge. ? Currently n.p.o. and is a severe aspiration risk. With mental status slightly improving and speech slightly improving we will have speech therapy assess again on Sunday. Continue PPN at this time. ? MRI brain has ruled out a stroke. CTA head and neck also within normal limits. ? Patient is severely deconditioned and weak with failure to thrive. Severe protein calorie malnutrition. ? Continue D5 half-normal saline at 100 cc/h. Patient was aspirating and was febrile however overnight has been afebrile. Continue rectal Tylenol. ? For shoulder pain we will order morphine 2 mg every 6 hours as needed. ? Check right shoulder x-ray, chest x-ray today. ? Continue Depakote IV, meropenem, linezolid. Stop antibiotics after 10 days total. ? Leukocytosis WBC 16,000. Most likely reactive and with recurrent aspiration. -Patient will need group home facility at discharge. Once mental status improves further. Will address goals of care with him and disposition. Continue current management for now. Provide nutrition through PPN. Hopefully patient would let us do modified barium swallow 03/02/2024 -Patient much more coherent today. In my clinical judgment he has capacity based on my conversation with him today. Nursing staff present during most of the conversation. I will change his CODE STATUS to DNR/DNI as per his wishes. ? Continue PPN today. Have him assessed by speech therapy again in the morning. ? Did have a discussion with patient regarding disposition. He states he would like to go home. I will have physical therapy see him again tomorrow. Patient may need short-term rehab stay so that he may be able to transfer from wheelchair to bed which was his baseline. He is definitely deconditioned. ? WBC count 18,[address] chest and pelvis. He has had chronically elevated WBC in the past however with fever and aspiration last few days we will continue to monitor. ? Continue IV Depakote, meropenem. Stop linezolid switched to vancomycin. ? Will consider checking a lumbar puncture however we will hold off on that at this point, mental status is better. ? Speech therapy, physical therapy evaluation again in a.m. ? Once able to take oral medications we will place on oral amiodarone. ? Continue therapeutic Lovenox at this time, Eliquis at discharge 03/03/2024 -Continue PPN ? Continue IV antibiotics. ? CT chest abdomen pelvis reviewed. Evidence of pneumonia ? Continue vancomycin, meropenem ? Patient is improving however severely deconditioned. Will need rehab at discharge. ? This morning agreed to go to rehab with medical social worker. ? Recently received morphine and therefore has gone back to sleep. ? Check speech therapy evaluation once awake. ? Once able to tolerate oral we will transition to oral medications. 03/04/2024 ?Patient currently on vancomycin and meropenem. Severely deconditioned has refused rehab. Mental status has improved. Speech therapy has reevaluated the patient. Patient still a very high aspiration risk. Recommended to keep NPO. He has refused a modified barium swallow. Patient is indicated that he does not want any further care. He would like to be let go . He indicated to his caregiver upon admission that he was done and did not want any treatment. Caregiver confirms this yesterday. PPN will be stopped. Patient does not want a feeding tube was indicated to me few days ago. he told nursing staff he wants to be let go he is confused at this time. will re-evaluate - have discussed hospice to [place] with medical social worker. 03/05/2024 - comfort measures status - awaiting placement to [place] 03/06/2024 -Patient's diet has been restarted which is a dysphagia diet along with thickened liquids. He may have his tablets crushed up as tolerated. Secondary to history of PTSD, bipolar disorder, and depression we will continue patient's home fluoxetine and Depakote at this time. He can also have his buspirone. ? Will discuss with speech therapy today to see if we can thicken up Ensure or other supplemental drinks. ? We will continue palliative care/hospice for the patient. He may eat for comfort and pleasure. ? If there is another atrial fibrillation episode we will consider restarting Lopressor. I do worry of a aspiration event and should that happen we will keep patient as comfortable as possible. ? He is pending placement to nursing facility with hospice at this time. -Ethics committee consult obtained. Attestations Medical Necessity Statement*: Palliative care/hospice/comfort measures status, pending placement. Diagnoses UTI (urinary tract infection) N39.0 Generalized weakness R53.1 Atrial fibrillation I48.91 Chronic obstructive pulmonary disease, unspecified COPD type J44.9 COPD type: unspecified COPD Falls frequently R29.6 Multilevel degenerative disc disease M53.9 Altered mental status R41.82
--- NOTE | 2024-03-06 17:28 | PC.NURSE ---
this nurse recieved a call from [facility] [place], operated by [facility] and informed that they were unable to accept him as a pt r/t him being high a acuity pt
[2024-03-06 19:42] VITALS: BP 128/72; PULSE 116; RESP 19; TEMP 36.9; O2SAT 90
[2024-03-06 20:13] LABS: Glucose Point of Care 120 mg/dL (70-110)
[2024-03-06] MEDS: BuSPIRONE 10 mg Tablet PO (21:47)
[2024-03-06] MEDS: divalproex ER 500 mg Tablet (24H) PO (21:47)
[2024-03-06 23:35] VITALS: BP 121/87; PULSE 118; RESP 20; TEMP 36.6; O2SAT 93
[2024-03-07] VITALS (7 sets, daily range): BP systolic 105–150; BP diastolic 56–80; PULSE 77–125; RESP 15–22; TEMP 36.4–36.8; O2SAT 90–96
[2024-03-07] MEDS: amiodarone 150 MG/100 ML PREMIX 400 MG IV (03:59)
[2024-03-07 06:26] LABS: Glucose Point of Care 100 mg/dL (70-110)
[2024-03-07] MEDS: BuSPIRONE 10 mg Tablet PO (09:37)
[2024-03-07] MEDS: lidocaine 5% Patch 1 PATCH TOPICAL (09:37)
[2024-03-07] MEDS: fluoxetine 20 mg Capsule 60 MG PO (09:37)
[2024-03-07 10:30] LABS: Glucose Point of Care 181 mg/dL (70-110)
[2024-03-07] MEDS: morphine 4 mg/mL SDV 1 mL 2 MG IVP (12:06)
--- NOTE | 2024-03-07 14:40 | PM.PN ---
Subjective Subjective: seen today caregiver at bedside pt alert and oriented this am he is refusing his medications, nursing staff is at bedside nursing staff reports patient swearing at nurses. Vitals/I&O/Wt Last Vital Signs Temp 97.6 F 03/07/24 11:35 Pulse 77 03/07/24 11:35 Resp 15 03/07/24 12:06 BP 145/80 03/07/24 11:35 Pulse Ox 90 03/07/24 11:35 O2 Del Method Room Air 03/07/24 11:35 O2 Flow Rate 2 03/04/24 12:02 03/06/24 03/07/24 03/07/24 22:59 06:59 14:59 Intake Total 100 / 340 150 / 490 20 / 20 Output Total 1100 / 1100 100 / 1200 Balance -1000 / -760 50 / -710 20 Weight last 48 hrs Weight 60.282 kg Weight 60.056 kg Physical Exam Narrative: limited exam due to comfort measures status alert oriented x2 Appears to be comfortable at this time. lungs cta b/l abd soft nontender Able to move bilateral upper extremities. Urinary Catheter Management: Suprapubic: Cath Placed During This Visit: no Reason for Continuing Indwelling Catheter: Hospice/Comfort/Palliative Care Data 03/04/24 04:35 03/04/24 04:35 Micro: Microbiology 03/02/24 12:40 Urine Culture - Final Urine Suprapubic Rhodotorula pilimanae A&P Assessment and plan (1) UTI (urinary tract infection): (2) Generalized weakness: (3) Atrial fibrillation: (4) COPD (chronic obstructive pulmonary disease): Qualifiers: COPD type: unspecified COPD Qualified Code(s): J44.9 - Chronic obstructive pulmonary disease, unspecified (5) Falls frequently: (6) Multilevel degenerative disc disease: (7) Altered mental status: Plan Doc S Sharon Mtathew is a 78 year old male with past medical history of chronic urinary obstruction with suprapubic catheter, atrial fibrillation, stroke, hypertension, COPD, multilevel degenerative disc disease, spinal stenosis presented with complaint of weakness and a fall, abdominal pain, blocked suprapubic catheter and found to have WBC count of 18.5, UA strongly positive. Chest x-ray, CT head, CT AP negative for acute findings CT lumbar spine showed severe spondylosis with severe spinal canal stenosis at L4-L5 Severe bilateral neural foraminal narrowing from L2-L5, findings likely stable as compared to previous. Would need outpatient follow-up with spine surgeon. #Generalized weakness and abdominal pain likely secondary to UTI- Blocked suprapubic catheter replaced in ER UA strongly positive showing urine blood 2+ urine nitrate positive leukocyte esterase 3+, RBC 51-100, WBCs more than 100, urine bacteria 4+ Has history of recurrent UTI in the past Urine cultures reviewed showed Enterobacter and Susan in the past Received IV Zosyn 3.375 g x 1 in ED Will do IV Levaquin 750 mg daily Follow-up urine culture Encourage p.o. fluid intake #A-fib with RVR-resolved, currently in sinus rhythm Continue home medications metoprolol 25 mg twice daily Continue CERTIFIED MEDICAL CODING SPECIALIST torsemide and potassium chloride He is not on chronic anticoagulation for A-fib being a fall risk. ECHO 06/15 LV systolic function is normal with EF of 60-65% Trace mitral regurgitation Trace tricuspid regurgitation #COPD-stable Continue nebulizers as needed #Depression-continue CERTIFIED MEDICAL CODING SPECIALIST Depakote and fluoxetine DVT prophylaxis with subcutaneous Lovenox GI prophylaxis with IV Pepcid 20 mg twice daily CODE STATUS discussed with the patient, he is full code. 02/22/24 This afternoon patient was found to be agitated, verbally abusive and hitting. Was given 1 mg of IV Ativan which calmed him down and he has been resting well since then. Symptoms likely due to hospital induced delirium versus dementia with behavioral disturbances. Will continue to monitor. Creatinine trending up to 1.5 likely secondary to poor p.o. intake. Will hold CERTIFIED MEDICAL CODING SPECIALIST torsemide for now Urine culture positive for gram-positive cocci. Continue levofloxacin, IV vancomycin added. Leukocytosis improved to 12.1 Will do IV Ativan 1 mg every 4 hours as needed and IV Haldol 1 mg every 4 hours as needed alternating for agitation. Will need case management consult for discharge planning 02/23/24 He continues to be confused and agitated. Has been on IV Ativan and Haldol as needed. He came from home on admission but would need case management for discharge planning to a subacute or assisted living facility. Has urine culture showing gram-negative rods and bulk blood culture showing gram-positive rods hence on IV vancomycin and levofloxacin. Follow-up final cultures and the need for ID consult for discharge antibiotics. Leukocytosis resolved, creatinine improved to 1.2. 02/24/24 He has been hemodynamically stable but agitated and confused has been needing as needed IV Ativan. He has been refusing IVs, spitting out medications and refusing food. Needs to follow-up with case management for safe discharge planning. He was living at home alone with a home assessment nurse coming in for few hours. 02/25/2024 Patient had 1 mg of Ativan given at 3 AM. Too sleepy in the morning. I will discontinue further Ativan at this time. ? He has not really talked to me or answer any questions. Did not work with physical therapy either was able to sit on his edge of the bed however is a maximum assist at this time. Has been refusing food and medications upon reviewing previous notes. ? Will attempt to reach to family to gather what his baseline is. Patient is unsafe to go home at this time. He may perhaps qualify for longterm facility however he is not participating with physical therapy. He may have to go to a dementia unit. ? Continue to treat with Zyvox and ciprofloxacin at this time. ? He is has had a previous stroke in the past. ? Continue to treat for UTI. ? CT head negative at admission. CT abdomen pelvis shows no acute findings done at admission. ? Will repeat CT head today. 02/26/2024 CT head rule out stroke ? Hypernatremia. Sodium 157 ? Placed on D5 water 75 cc/h ? Has been spiking fevers overnight. Will repeat blood cultures today ? Switch to IV Zyvox and IV meropenem. ? Continue medical management at this time. Continue Depakote at bedtime. ? Recheck labs daily CBC CMP magnesium. -Discussed with nursing staff, caregiver at bedside. 02/27/2024 I got a call from the nurse later on close to 11:00 that patient was tachypneic hypotensive and had worsening tachycardia. Patient had recently eaten. There is a question he may have aspirated. Went to evaluate patient at bedside. He was tachypneic and was using accessory muscles to breathe. Hypotensive with systolic blood pressure down to 77. 500 cc normal saline bolus given. Chest x-ray reviewed no evidence of acute infiltrate or pulmonary edema at this time. Lungs clear to auscultation. Fluids ordered. Patient transferred to ICU. Continue nasal cannula at this time and requested suctioning. Upon arriving to ICU patient was given amiodarone bolus additionally and amiodarone drip was continued. Patient's condition did improve and did not require BiPAP. On 4 L nasal cannula. Around 11:00 he also had a temperature of 100.4. Patient is being covered with antibiotics at this time. He was seen by speech therapy who have recommended n.p.o. status. He does have coughing episodes while after oral consumption. There is possibility of pharyngeal residue or possibly reflux. We will be pursuing a modified barium swallow. Potassium 3.3 this morning. IV potassium has been ordered. - Continue D5 water at 75 cc/h ? Repeat blood cultures negative so far ? Continue IV Zyvox IV meropenem. ? Continue Depakote at bedtime ? Discussed with nursing staff ? Discussed with speech therapist. ? Plan for modified barium swallow. ? Continue to monitor in ICU today. Keep patient n.p.o. status. ? Continue amiodarone drip. Will transition to oral amnio 400 daily after 24 hours. ? Hemoglobin 10.8, stable. Will place on Eliquis 5 twice daily at discharge. for now add therapeutic lovenox ? Placed on thiamine, folic acid. ? Will check phosphorus. ? Continue Levophed and wean off as able. 02/28/2024 -Seen this morning. Sodium 149. ? Amiodarone drip turned off overnight as patient was becoming bradycardic. ? He is refusing treatment. Refusing IV, medications. ? [place] negative at 6 hours. ? Patient is alert and oriented to self. ? Currently NPO. ? She has refused modified barium swallow this morning. ? Speech therapy to work with patient. ? PT OT ordered. ? Patient is not safe to go home alone. He does have a caregiver that comes 37 hours a week however other than that he is alone rest of the time. He is currently a maximum assist. ? Has severe deconditioning. ? Continue linezolid, meropenem ? Urine culture negative. ? Blood culture pending ? D5 water restarted. ? We will need to set up placement for the patient. Unable to have a goals of care discussion. Patient does not have a DPOA. ? Most likely has hospital-acquired delirium with component of hypernatremia, metabolic encephalopathy. ? Patient is at risk of aspiration. 02/29/2024 ?No DPOA. ? Caregiver present at bedside. She cannot make medical decisions at this time. Discussed with her regarding pursuing guardianship possibly. electrical maintenance worker will speak to them. ? Patient refusing treatment at times and at other times taking tablets. ? Currently n.p.o. Is a severe aspiration risk. Speech therapy has evaluated multiple times. ? Patient severely deconditioned and has had a decline since admission. Unsafe to go home alone. ? Not following commands today and has some garbled speech and unable to move bilateral lower extremities and right extremity. Unsure if he cannot move it versus he has had a cerebrovascular event. Does have atrial fibrillation. Is on therapeutic Lovenox at this time as well. We will give Ativan for light sedation and check MRI brain today. Will also produce CTA head and neck to rule out stroke. ? Will have to assess brain imaging going forward patient may need a PEG tube. ? As per caregiver he wanted all life-saving measures if possible. Patient is full code. ? Continue to D5 half-normal saline at 100 cc/h. Will place dietitian consult for PPN temporarily. ?He has been febrile and aspirating. Will order rectal Tylenol ? Continue amiodarone drip. ? Will switch Depakote to IV. ? Continue meropenem, linezolid. ? Continue Protonix 40 IV daily -Discussed with caregiver, nursing staff, pharmacy, health social work professor 03/01/2024 -Amiodarone drip was stopped yesterday. Patient has been placed on metoprolol 2.5 IV every 4 hours as needed. ? Continue therapeutic Lovenox. Switch to Eliquis at discharge. ? Currently n.p.o. and is a severe aspiration risk. With mental status slightly improving and speech slightly improving we will have speech therapy assess again on Sunday. Continue PPN at this time. ? MRI brain has ruled out a stroke. CTA head and neck also within normal limits. ? Patient is severely deconditioned and weak with failure to thrive. Severe protein calorie malnutrition. ? Continue D5 half-normal saline at 100 cc/h. Patient was aspirating and was febrile however overnight has been afebrile. Continue rectal Tylenol. ? For shoulder pain we will order morphine 2 mg every 6 hours as needed. ? Check right shoulder x-ray, chest x-ray today. ? Continue Depakote IV, meropenem, linezolid. Stop antibiotics after 10 days total. ? Leukocytosis WBC 16,000. Most likely reactive and with recurrent aspiration. -Patient will need longterm facility at discharge. Once mental status improves further. Will address goals of care with him and disposition. Continue current management for now. Provide nutrition through PPN. Hopefully patient would let us do modified barium swallow 03/02/2024 -Patient much more coherent today. In my clinical judgment he has capacity based on my conversation with him today. Nursing staff present during most of the conversation. I will change his CODE STATUS to DNR/DNI as per his wishes. ? Continue PPN today. Have him assessed by speech therapy again in the morning. ? Did have a discussion with patient regarding disposition. He states he would like to go home. I will have physical therapy see him again tomorrow. Patient may need short-term rehab stay so that he may be able to transfer from wheelchair to bed which was his baseline. He is definitely deconditioned. ? WBC count 18,[address] chest and pelvis. He has had chronically elevated WBC in the past however with fever and aspiration last few days we will continue to monitor. ? Continue IV Depakote, meropenem. Stop linezolid switched to vancomycin. ? Will consider checking a lumbar puncture however we will hold off on that at this point, mental status is better. ? Speech therapy, physical therapy evaluation again in a.m. ? Once able to take oral medications we will place on oral amiodarone. ? Continue therapeutic Lovenox at this time, Eliquis at discharge 03/03/2024 -Continue PPN ? Continue IV antibiotics. ? CT chest abdomen pelvis reviewed. Evidence of pneumonia ? Continue vancomycin, meropenem ? Patient is improving however severely deconditioned. Will need rehab at discharge. ? This morning agreed to go to rehab with health social work professor. ? Recently received morphine and therefore has gone back to sleep. ? Check speech therapy evaluation once awake. ? Once able to tolerate oral we will transition to oral medications. 03/04/2024 ?Patient currently on vancomycin and meropenem. Severely deconditioned has refused rehab. Mental status has improved. Speech therapy has reevaluated the patient. Patient still a very high aspiration risk. Recommended to keep NPO. He has refused a modified barium swallow. Patient is indicated that he does not want any further care. He would like to be let go . He indicated to his caregiver upon admission that he was done and did not want any treatment. Caregiver confirms this yesterday. PPN will be stopped. Patient does not want a feeding tube was indicated to me few days ago. he told nursing staff he wants to be let go he is confused at this time. will re-evaluate - have discussed hospice to [place] with health social work professor. 03/05/2024 - comfort measures status - awaiting placement to [facility] 03/06/2024 -Patient's diet has been restarted which is a dysphagia diet along with thickened liquids. He may have his tablets crushed up as tolerated. Secondary to history of PTSD, bipolar disorder, and depression we will continue patient's home fluoxetine and Depakote at this time. He can also have his buspirone. ? Will discuss with speech therapy today to see if we can thicken up Ensure or other supplemental drinks. ? We will continue palliative care/hospice for the patient. He may eat for comfort and pleasure. ? If there is another atrial fibrillation episode we will consider restarting Lopressor. I do worry of a aspiration event and should that happen we will keep patient as comfortable as possible. ? He is pending placement to nursing facility with hospice at this time. -Ethics committee consult obtained. 03/07/2024 - continue to provide supportive care - continue home meds as tolerated - continue oral intake as per pt desire and request for pleasure and comfort - pending placement - morphine and ativan for comfort as deemed necessary by physician as per pt's symptoms with focus on comfort. Attestations Medical Necessity Statement*: pending placement Diagnoses UTI (urinary tract infection) N39.0 Generalized weakness R53.1 Atrial fibrillation I48.91 Chronic obstructive pulmonary disease, unspecified COPD type J44.9 COPD type: unspecified COPD Falls frequently R29.6 Multilevel degenerative disc disease M53.9 Altered mental status R41.82
[2024-03-07 16:48] LABS: Glucose Point of Care 99 mg/dL (70-110)
--- NOTE | 2024-03-07 19:16 | PC.NURSE ---
End of shift assessment: The pt was able to take his AM meds crushed with pudding with minimal encouragement. When this nurse attemted to admin his next 2 doses, the pt stated he can't swallow that shit . The pt became more alert and oriented as the shift went on. The caregiver at bedside stated that this is more like his normal.
--- NOTE | 2024-03-07 20:03 | PC.NURSE ---
Patient refusing evening medication and stated, well no I am not going to take them. Patient educated on risks of not taking medications. Plan of care ongoing.
[2024-03-08 04:00] VITALS: BP 119/77; PULSE 115; RESP 26; TEMP 36.4; O2SAT 94
[2024-03-08 07:13] VITALS: BP 118/50; PULSE 98; RESP 20; TEMP 36.6; O2SAT 93
--- NOTE | 2024-03-08 09:19 | NUR.SHIFT ---
During shift assessment the pt was mumbling his responses to questions, until cleared throat and moistened mouth. This nurse asked pt name, , and location. The pt was able to answer all but location. Reports pain throughout abdomen. Refused AM medications and stated Not happening with a smile. When attempted to feed breakfast, pt pocketed food in cheek and would not swallow. This was removed from mouth the decrease chance of aspiration.
[2024-03-08 11:02] VITALS: BP 133/78; PULSE 80; RESP 19; TEMP 36.5; O2SAT 92
--- NOTE | 2024-03-08 13:48 | P.PN_ITS ---
Subjective 2 Subjective: seen today rissa, who is pt's former caregiver is at bedside. she states she is his adopted daughter but does not have any paperwork with her. She is requesting to have doc sent home with her for hospice. I have asked her to come back sunday and discuss with social science manager. We will need paperwork from her to release the patient to her. SHe had questions on why he is comfort measures and if that is appropriate. I discussed the process on how we reached this decision. [facility] told [facility]. service worker helper has reached out to them. Ms. Sanchez states that she has DPOA paperwork which is in a red folder apparently at doc's house. I have asked her to locate paperwork and bring it in. Patient does appear comfortable at this time. Vitals/I&O/Wt Last Vital Signs Temp 97.7 F 03/08/24 11:02 Pulse 80 03/08/24 11:02 Resp 19 H 03/08/24 11:02 BP 133/78 03/08/24 11:02 Pulse Ox 92 03/08/24 11:02 O2 Del Method Room Air 03/08/24 11:02 O2 Flow Rate 2 03/04/24 12:02 03/07/24 03/08/24 03/08/24 22:59 06:59 14:59 Intake Total 20 / 40 20 / 20 Output Total 450 / 450 325 / 775 Balance -430 / -410 -325 / -735 20 / 20 Weight last 48 hrs Weight 60.101 kg Weight 60.282 kg Physical Exam 2 Narrative: limited exam due to comfort measures status alert oriented x2 Appears to be comfortable at this time. lungs cta b/l abd soft nontender Able to move bilateral upper extremities. Urinary Catheter Management: Suprapubic: Cath Placed During This Visit: no Reason for Continuing Indwelling Catheter: Hospice/Comfort/Palliative Care Data 03/04/24 04:35 03/04/24 04:35 Micro: Microbiology 03/03/24 05:00 Blood Culture - Final Blood NO GROWTH AFTER 5 DAYS 03/03/24 05:00 Blood Culture - Final Blood NO GROWTH AFTER 5 DAYS A&P Assessment and plan (1) UTI (urinary tract infection): (2) Generalized weakness: (3) Atrial fibrillation: (4) COPD (chronic obstructive pulmonary disease): Qualifiers: COPD type: unspecified COPD Qualified Code(s): J44.9 - Chronic obstructive pulmonary disease, unspecified (5) Falls frequently: (6) Multilevel degenerative disc disease: (7) Altered mental status: Plan Doc S Sharon Matthew is a 78 year old male with past medical history of chronic urinary obstruction with suprapubic catheter, atrial fibrillation, stroke, hypertension, COPD, multilevel degenerative disc disease, spinal stenosis presented with complaint of weakness and a fall, abdominal pain, blocked suprapubic catheter and found to have WBC count of 18.5, UA strongly positive. Chest x-ray, CT head, CT AP negative for acute findings CT lumbar spine showed severe spondylosis with severe spinal canal stenosis at L4-L5 Severe bilateral neural foraminal narrowing from L2-L5, findings likely stable as compared to previous. Would need outpatient follow-up with spine surgeon. #Generalized weakness and abdominal pain likely secondary to UTI- Blocked suprapubic catheter replaced in ER UA strongly positive showing urine blood 2+ urine nitrate positive leukocyte esterase 3+, RBC 51-100, WBCs more than 100, urine bacteria 4+ Has history of recurrent UTI in the past Urine cultures reviewed showed Enterobacter and Susan in the past Received IV Zosyn 3.375 g x 1 in ED Will do IV Levaquin 750 mg daily Follow-up urine culture Encourage p.o. fluid intake #A-fib with RVR-resolved, currently in sinus rhythm Continue home medications metoprolol 25 mg twice daily Continue DRAIN TECHNICIAN torsemide and potassium chloride He is not on chronic anticoagulation for A-fib being a fall risk. ECHO 06/15 LV systolic function is normal with EF of 60-65% Trace mitral regurgitation Trace tricuspid regurgitation #COPD-stable Continue nebulizers as needed #Depression-continue DRAIN TECHNICIAN Depakote and fluoxetine DVT prophylaxis with subcutaneous Lovenox GI prophylaxis with IV Pepcid 20 mg twice daily CODE STATUS discussed with the patient, he is full code. 02/22/24 This afternoon patient was found to be agitated, verbally abusive and hitting. Was given 1 mg of IV Ativan which calmed him down and he has been resting well since then. Symptoms likely due to hospital induced delirium versus dementia with behavioral disturbances. Will continue to monitor. Creatinine trending up to 1.5 likely secondary to poor p.o. intake. Will hold DRAIN TECHNICIAN torsemide for now Urine culture positive for gram-positive cocci. Continue levofloxacin, IV vancomycin added. Leukocytosis improved to 12.1 Will do IV Ativan 1 mg every 4 hours as needed and IV Haldol 1 mg every 4 hours as needed alternating for agitation. Will need case management consult for discharge planning 02/23/24 He continues to be confused and agitated. Has been on IV Ativan and Haldol as needed. He came from home on admission but would need case management for discharge planning to a subacute or assisted living facility. Has urine culture showing gram-negative rods and bulk blood culture showing gram-positive rods hence on IV vancomycin and levofloxacin. Follow-up final cultures and the need for ID consult for discharge antibiotics. Leukocytosis resolved, creatinine improved to 1.2. 02/24/24 He has been hemodynamically stable but agitated and confused has been needing as needed IV Ativan. He has been refusing IVs, spitting out medications and refusing food. Needs to follow-up with case management for safe discharge planning. He was living at home alone with a nursing home physician coming in for few hours. 02/25/2024 Patient had 1 mg of Ativan given at 3 AM. Too sleepy in the morning. I will discontinue further Ativan at this time. ? He has not really talked to me or answer any questions. Did not work with physical therapy either was able to sit on his edge of the bed however is a maximum assist at this time. Has been refusing food and medications upon reviewing previous notes. ? Will attempt to reach to family to gather what his baseline is. Patient is unsafe to go home at this time. He may perhaps qualify for fpc facility however he is not participating with physical therapy. He may have to go to a dementia unit. ? Continue to treat with Zyvox and ciprofloxacin at this time. ? He is has had a previous stroke in the past. ? Continue to treat for UTI. ? CT head negative at admission. CT abdomen pelvis shows no acute findings done at admission. ? Will repeat CT head today. 02/26/2024 CT head rule out stroke ? Hypernatremia. Sodium 157 ? Placed on D5 water 75 cc/h ? Has been spiking fevers overnight. Will repeat blood cultures today ? Switch to IV Zyvox and IV meropenem. ? Continue medical management at this time. Continue Depakote at bedtime. ? Recheck labs daily CBC CMP magnesium. -Discussed with nursing staff, caregiver at bedside. 02/27/2024 I got a call from the nurse later on close to 11:00 that patient was tachypneic hypotensive and had worsening tachycardia. Patient had recently eaten. There is a question he may have aspirated. Went to evaluate patient at bedside. He was tachypneic and was using accessory muscles to breathe. Hypotensive with systolic blood pressure down to 77. 500 cc normal saline bolus given. Chest x- ray reviewed no evidence of acute infiltrate or pulmonary edema at this time. Lungs clear to auscultation. Fluids ordered. Patient transferred to ICU. Continue nasal cannula at this time and requested suctioning. Upon arriving to ICU patient was given amiodarone bolus additionally and amiodarone drip was continued. Patient's condition did improve and did not require BiPAP. On 4 L nasal cannula. Around 11:00 he also had a temperature of 100.4. Patient is being covered with antibiotics at this time. He was seen by speech therapy who have recommended n.p.o. status. He does have coughing episodes while after oral consumption. There is possibility of pharyngeal residue or possibly reflux. We will be pursuing a modified barium swallow. Potassium 3.3 this morning. IV potassium has been ordered. - Continue D5 water at 75 cc/h ? Repeat blood cultures negative so far ? Continue IV Zyvox IV meropenem. ? Continue Depakote at bedtime ? Discussed with nursing staff ? Discussed with speech therapist. ? Plan for modified barium swallow. ? Continue to monitor in ICU today. Keep patient n.p.o. status. ? Continue amiodarone drip. Will transition to oral amnio 400 daily after 24 hours. ? Hemoglobin 10.8, stable. Will place on Eliquis 5 twice daily at discharge. for now add therapeutic lovenox ? Placed on thiamine, folic acid. ? Will check phosphorus. ? Continue Levophed and wean off as able. 02/28/2024 -Seen this morning. Sodium 149. ? Amiodarone drip turned off overnight as patient was becoming bradycardic. ? He is refusing treatment. Refusing IV, medications. ? [place] negative at 6 hours. ? Patient is alert and oriented to self. ? Currently NPO. ? She has refused modified barium swallow this morning. ? Speech therapy to work with patient. ? PT OT ordered. ? Patient is not safe to go home alone. He does have a caregiver that comes 37 hours a week however other than that he is alone rest of the time. He is currently a maximum assist. ? Has severe deconditioning. ? Continue linezolid, meropenem ? Urine culture negative. ? Blood culture pending ? D5 water restarted. ? We will need to set up placement for the patient. Unable to have a goals of care discussion. Patient does not have a DPOA. ? Most likely has hospital-acquired delirium with component of hypernatremia, metabolic encephalopathy. ? Patient is at risk of aspiration. 02/29/2024 ?No DPOA. ? Caregiver present at bedside. She cannot make medical decisions at this time. Discussed with her regarding pursuing guardianship possibly. service worker helper will speak to them. ? Patient refusing treatment at times and at other times taking tablets. ? Currently n.p.o. Is a severe aspiration risk. Speech therapy has evaluated multiple times. ? Patient severely deconditioned and has had a decline since admission. Unsafe to go home alone. ? Not following commands today and has some garbled speech and unable to move bilateral lower extremities and right extremity. Unsure if he cannot move it versus he has had a cerebrovascular event. Does have atrial fibrillation. Is on therapeutic Lovenox at this time as well. We will give Ativan for light sedation and check MRI brain today. Will also produce CTA head and neck to rule out stroke. ? Will have to assess brain imaging going forward patient may need a PEG tube. ? As per caregiver he wanted all life-saving measures if possible. Patient is full code. ? Continue to D5 half-normal saline at 100 cc/h. Will place dietitian consult for PPN temporarily. ?He has been febrile and aspirating. Will order rectal Tylenol ? Continue amiodarone drip. ? Will switch Depakote to IV. ? Continue meropenem, linezolid. ? Continue Protonix 40 IV daily -Discussed with caregiver, nursing staff, pharmacy, social science manager 03/01/2024 -Amiodarone drip was stopped yesterday. Patient has been placed on metoprolol 2.5 IV every 4 hours as needed. ? Continue therapeutic Lovenox. Switch to Eliquis at discharge. ? Currently n.p.o. and is a severe aspiration risk. With mental status slightly improving and speech slightly improving we will have speech therapy assess again on Sunday. Continue PPN at this time. ? MRI brain has ruled out a stroke. CTA head and neck also within normal limits. ? Patient is severely deconditioned and weak with failure to thrive. Severe protein calorie malnutrition. ? Continue D5 half-normal saline at 100 cc/h. Patient was aspirating and was febrile however overnight has been afebrile. Continue rectal Tylenol. ? For shoulder pain we will order morphine 2 mg every 6 hours as needed. ? Check right shoulder x-ray, chest x-ray today. ? Continue Depakote IV, meropenem, linezolid. Stop antibiotics after 10 days total. ? Leukocytosis WBC 16,000. Most likely reactive and with recurrent aspiration. -Patient will need fpc facility at discharge. Once mental status improves further. Will address goals of care with him and disposition. Continue current management for now. Provide nutrition through PPN. Hopefully patient would let us do modified barium swallow 03/02/2024 -Patient much more coherent today. In my clinical judgment he has capacity based on my conversation with him today. Nursing staff present during most of the conversation. I will change his CODE STATUS to DNR/DNI as per his wishes. ? Continue PPN today. Have him assessed by speech therapy again in the morning. ? Did have a discussion with patient regarding disposition. He states he would like to go home. I will have physical therapy see him again tomorrow. Patient may need short-term rehab stay so that he may be able to transfer from wheelchair to bed which was his baseline. He is definitely deconditioned. ? WBC count 18,[address] chest and pelvis. He has had chronically elevated WBC in the past however with fever and aspiration last few days we will continue to monitor. ? Continue IV Depakote, meropenem. Stop linezolid switched to vancomycin. ? Will consider checking a lumbar puncture however we will hold off on that at this point, mental status is better. ? Speech therapy, physical therapy evaluation again in a.m. ? Once able to take oral medications we will place on oral amiodarone. ? Continue therapeutic Lovenox at this time, Eliquis at discharge 03/03/2024 -Continue PPN ? Continue IV antibiotics. ? CT chest abdomen pelvis reviewed. Evidence of pneumonia ? Continue vancomycin, meropenem ? Patient is improving however severely deconditioned. Will need rehab at discharge. ? This morning agreed to go to rehab with social science manager. ? Recently received morphine and therefore has gone back to sleep. ? Check speech therapy evaluation once awake. ? Once able to tolerate oral we will transition to oral medications. 03/04/2024 ?Patient currently on vancomycin and meropenem. Severely deconditioned has refused rehab. Mental status has improved. Speech therapy has reevaluated the patient. Patient still a very high aspiration risk. Recommended to keep NPO. He has refused a modified barium swallow. Patient is indicated that he does not want any further care. He would like to be let go . He indicated to his caregiver upon admission that he was done and did not want any treatment. Caregiver confirms this yesterday. PPN will be stopped. Patient does not want a feeding tube was indicated to me few days ago. he told nursing staff he wants to be let go he is confused at this time. will re-evaluate - have discussed hospice to [facility] with social science manager. 03/05/2024 - comfort measures status - awaiting placement to [facility] 03/06/2024 -Patient's diet has been restarted which is a dysphagia diet along with thickened liquids. He may have his tablets crushed up as tolerated. Secondary to history of PTSD, bipolar disorder, and depression we will continue patient's home fluoxetine and Depakote at this time. He can also have his buspirone. ? Will discuss with speech therapy today to see if we can thicken up Ensure or other supplemental drinks. ? We will continue palliative care/hospice for the patient. He may eat for comfort and pleasure. ? If there is another atrial fibrillation episode we will consider restarting Lopressor. I do worry of a aspiration event and should that happen we will keep patient as comfortable as possible. ? He is pending placement to nursing facility with hospice at this time. -Ethics committee consult obtained. 03/07/2024, 03/08/2024 - continue to provide supportive care - continue home meds as tolerated - continue oral intake as per pt desire and request for pleasure and comfort - pending placement - morphine and ativan for comfort as deemed necessary by physician as per pt's symptoms with focus on comfort. Attestations 2 Medical Necessity Statement*: pending placement Diagnoses UTI (urinary tract infection) N39.0 Generalized weakness R53.1 Atrial fibrillation I48.91 Chronic obstructive pulmonary disease, unspecified COPD type J44.9 COPD type: unspecified COPD Falls frequently R29.6 Multilevel degenerative disc disease M53.9 Altered mental status R41.82
--- NOTE | 2024-03-08 16:02 | PC.NURSE ---
Patient still continues to not show interest in swallowing, so this nurse chose to not give evening medication.
[2024-03-08] MEDS: morphine 10 mg/0.5 mL oral liq UD 2.5 MG SUBLINGUAL (17:45)
[2024-03-08 20:00] VITALS: BP 149/85; PULSE 73; RESP 23; TEMP 36.8; O2SAT 91
--- NOTE | 2024-03-08 20:30 | PC.NURSE ---
This nurse went into patient room to pass evening medications. When asking patient if he was going to take his meds this evening he stated, yes. This nurse went to get patient water and pudding for him to take them and upon coming back in the room, this nurse stated she had the patients medications and patient stated no. Nurse asked patient if he was going to take his medications and again patient said no.
[2024-03-08 23:46] VITALS: BP 149/72; PULSE 81; RESP 24; TEMP 36.6; O2SAT 90
[2024-03-09 04:00] VITALS: BP 145/82; PULSE 79; RESP 23; TEMP 36.8; O2SAT 90
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
[2024-03-09 08:00] VITALS: BP 151/96; PULSE 73; RESP 24; TEMP 36.8; O2SAT 88
--- NOTE | 2024-03-09 09:25 | PC.NURSE ---
During shift assessment pt reports pain to abdomen and BLE. When asked if he would take his morning medications, he said nope, not happening today. Pt is pleasant otherwise, just uncomfortable.
[2024-03-09 11:34] VITALS: BP 152/81; PULSE 76; RESP 20; TEMP 36.8; O2SAT 89
[2024-03-09] MEDS: morphine 10 mg/0.5 mL oral liq UD SUBLINGUAL ×2 (17:41→22:10)
[2024-03-09] MEDS: blistex lip oint 7 gm Tube 1 APPLIC TOPICAL (17:42)
[2024-03-09 19:55] VITALS: BP 152/67; PULSE 82; RESP 27; TEMP 36.6; O2SAT 85
[2024-03-10] MEDS: morphine 10 mg/0.5 mL oral liq UD SUBLINGUAL ×3 (00:13→08:56)
[2024-03-10 08:00] VITALS: BP 116/76; PULSE 111; RESP 26; TEMP 36.3; O2SAT 91
--- NOTE | 2024-03-10 12:12 | P.PN_ITS ---
Subjective 2 Subjective: Denies being in pain or discomfort at the time of my visit. Vitals/I&O/Wt Last Vital Signs Temp 97.3 F L 03/10/24 08:00 Pulse 111 H 03/10/24 08:00 Resp 26 H 03/10/24 08:00 BP 116/76 03/10/24 08:00 Pulse Ox 91 03/10/24 08:00 O2 Del Method Room Air 03/10/24 08:00 O2 Flow Rate 2 03/04/24 12:02 03/09/24 03/10/24 03/10/24 22:59 06:59 14:59 Intake Total 0 / 0 Output Total 300 / 300 200 / 500 Balance -300 / -300 -200 / -500 Weight last 48 hrs Weight 56.699 kg Weight 59.466 kg Physical Exam 2 Narrative: Generally very weak. Const: GENERAL APPEARANCE: cooperative ORIENTATION/CONSCIOUSNESS: Yes awake Neck/C-Spine: COMMON NORMALS: no JVD Resp: OTHER: Few rhonchi. Cardio: COMMON NORMALS: no JVD, regular rhythm, S1 normal heart sound present, S2 normal heart sound present and No murmurs present (Cardio) RHYTHM: regular rhythm HEART SOUNDS: S1 normal heart sound present and S2 normal heart sound present GI: COMMON NORMALS: Normal to inspection, nondistended, normoactive bowel sounds present, Soft to palpation and non-tender PALPATION: Yes Soft to palpation Extremity: COMMON NORMALS: no joint enlargement and no pedal edema Neuro: COMMON NORMALS: moves all extremities Urinary Catheter Management: Suprapubic: Cath Placed During This Visit: no Reason for Continuing Indwelling Catheter: Chronic Indwelling Urinary Catheter on Admission Data 03/04/24 04:35 03/04/24 04:35 A&P Assessment and plan (1) Generalized weakness: Recurrent aspiration with aspiration pneumonitis. Received treatment for UTI, pneumonia, A-fib with RVR. He is overall generally very weak. Very high risk of aspiration. Continues on supportive/comfort measures after declining feeding tube or further aggressive measures. Discussed with nursing, community case manager, will further check on transfer to [place] for continued care and discussed consideration of public guardianship. Added sublingual Ativan option for any anxiety discomfort as alternative option to IV. (2) UTI (urinary tract infection): (3) Atrial fibrillation: (4) COPD (chronic obstructive pulmonary disease): Qualifiers: COPD type: unspecified COPD Qualified Code(s): J44.9 - Chronic obstructive pulmonary disease, unspecified (5) Falls frequently: (6) Multilevel degenerative disc disease: (7) Altered mental status: Attestations 2 Medical Necessity Statement*: Continue supportive and comfort measures, post discharge planning and arrangements. , Moderate MDM includes amount and/or complexity of data reviewed/ordered [ other healthcare professional discussion] as documented and High MDM includes described risk of complication, morbidity or mortality of management as documented Diagnoses Generalized weakness R53.1 UTI (urinary tract infection) N39.0 Atrial fibrillation I48.91 Chronic obstructive pulmonary disease, unspecified COPD type J44.9 COPD type: unspecified COPD Falls frequently R29.6 Multilevel degenerative disc disease M53.9 Altered mental status R41.82
--- NOTE | 2024-03-10 13:03 | PC.SOCIAL ---
IMM Updated Provided pt a copy. Initialed, dated, & timed copy in chart.
[2024-03-10 20:00] VITALS: BP 97/63; PULSE 128; RESP 21; TEMP 37.7; O2SAT 91
[2024-03-11 07:50] VITALS: BP 104/68; PULSE 93; RESP 23; TEMP 37; O2SAT 85
[2024-03-11] MEDS: lidocaine 5% Patch 1 PATCH TOPICAL (08:34)
[2024-03-11] MEDS: morphine 10 mg/0.5 mL oral liq UD SUBLINGUAL ×12 (08:34→21:38)
[2024-03-11] MEDS: atropine 1% op soln 2 mL Btl 3 DROP SUBLINGUAL (10:45)
[2024-03-11] MEDS: LORazepam 2 mg/mL INJ 1 mL IVP ×3 (15:58→20:33)
--- NOTE | 2024-03-11 19:44 | P.PN_ITS ---
Subjective 2 Subjective: He is accompanied by his caregiver. He is weak. Nonverbal. Intermittently uncomfortable. Caregiver would like to make sure that he is kept in comfort. We have increased his dose of Ativan. Vitals/I&O/Wt Last Vital Signs Temp 98.6 F 03/11/24 07:50 Pulse 93 03/11/24 07:50 Resp 23 H 03/11/24 07:50 BP 104/68 03/11/24 07:50 Pulse Ox 85 L 03/11/24 07:50 O2 Del Method Room Air 03/11/24 07:50 O2 Flow Rate 2 03/04/24 12:02 Weight last 48 hrs Weight 56.699 kg Physical Exam 2 Narrative: Generally very weak. Not responding today, nonverbal. Const: GENERAL APPEARANCE: cooperative ORIENTATION/CONSCIOUSNESS: Yes awake Neck/C-Spine: COMMON NORMALS: no JVD Resp: OTHER: Few rhonchi. Cardio: COMMON NORMALS: no JVD, regular rhythm, S1 normal heart sound present, S2 normal heart sound present and No murmurs present (Cardio) RHYTHM: regular rhythm HEART SOUNDS: S1 normal heart sound present and S2 normal heart sound present GI: COMMON NORMALS: Normal to inspection, nondistended, normoactive bowel sounds present, Soft to palpation and non-tender PALPATION: Yes Soft to palpation Extremity: COMMON NORMALS: no joint enlargement and no pedal edema Neuro: COMMON NORMALS: moves all extremities Urinary Catheter Management: Suprapubic: Cath Placed During This Visit: no Reason for Continuing Indwelling Catheter: Chronic Indwelling Urinary Catheter on Admission Data 03/04/24 04:35 03/04/24 04:35 A&P Assessment and plan (1) Generalized weakness: Not responding, nonverbal today. Very weak. Intermittently uncomfortable. As per discussion with her caregiver wants to make sure he is in comfort. Continues with oral morphine as needed. We have increased his Ativan dose due to intermittent anxiety/restlessness. Reviewed case management documentation. Recurrent aspiration with aspiration pneumonitis. Received treatment for UTI, pneumonia, A-fib with RVR. He is overall generally very weak. Very high risk of aspiration. Continues on supportive/comfort measures after declining feeding tube or further aggressive measures. Added sublingual Ativan option for any anxiety discomfort as alternative option to IV. (2) UTI (urinary tract infection): (3) Atrial fibrillation: With tachycardia today, resume low-dose metoprolol 12.5 mg, however, he is unable to take it. (4) COPD (chronic obstructive pulmonary disease): Qualifiers: COPD type: unspecified COPD Qualified Code(s): J44.9 - Chronic obstructive pulmonary disease, unspecified (5) Falls frequently: (6) Multilevel degenerative disc disease: (7) Altered mental status: Attestations 2 Medical Necessity Statement*: Continue supportive and comfort measures, post discharge planning and arrangements. and Moderate MDM includes number and complexity of problems actively addressed during encounter and described risk of complication, morbidity or mortality of management as documented Diagnoses Generalized weakness R53.1 UTI (urinary tract infection) N39.0 Atrial fibrillation I48.91 Chronic obstructive pulmonary disease, unspecified COPD type J44.9 COPD type: unspecified COPD Falls frequently R29.6 Multilevel degenerative disc disease M53.9 Altered mental status R41.82
[2024-03-11 20:00] VITALS: PULSE 27; RESP 22; TEMP 37.7; O2SAT 77
--- NOTE | 2024-03-11 22:37 | PC.NURSE ---
PT AT 2230. MD AND [facility] NOTIFIED. CAREGIVER AT BEDSIDE.
--- NOTE | 2024-03-11 22:52 | PC.NURSE ---
[facility] contacted @ [phone] Ref# [id number]
--- NOTE | 2024-03-12 00:05 | PC.NURSE ---
[facility] and [facility] have both released the patient. home has been notified and are on their way.
--- NOTE | 2024-03-12 01:56 | PC.NURSE ---
Shruti Davies here to pickle cutter patient.
--- NOTE | 2024-03-12 19:55 | PM.DDS ---
Discharge Providers DDS Date of Admission: 02/21/24 06:59 Date Summary Completed: 03/12/24 Attending Provider at Admission: Gely Payne MD Time of : 22:30 Attending Provider at Discharge: Ant Monroy Primary Care Provider: Almaz LAND Diagnoses Hospital Diagnoses (1) Generalized weakness: (2) UTI (urinary tract infection): (3) Atrial fibrillation: (4) COPD (chronic obstructive pulmonary disease): Qualifiers: COPD type: unspecified COPD Qualified Code(s): J44.9 - Chronic obstructive pulmonary disease, unspecified (5) Falls frequently: (6) Multilevel degenerative disc disease: (7) Altered mental status: Reason for Visit Reason for Visit fall back pain Summary Date and Time of Date of : 03/11/24 Time of : 22:30 Summary Summary: 78-year-old gentleman with history of chronic urinary obstruction with suprapubic catheter, atrial fibrillation, stroke, hypertension, COPD, multilevel degenerative disc disease, spinal stenosis, bedbound at baseline, living alone, taking care of by home health aide, was admitted after presenting with generalized weakness, fall with back pain, and additionally with abdominal pain, suprapubic catheter blockage. On presentation also found to be in A-fib with RVR which converted to sinus rhythm with IV Cardizem. On presentation he was in suggestive UTI, with systemic leukocytosis. Suprapubic catheter was replaced in ER. He was treated with broad-spectrum antibiotic. Despite not having any further issues with the catheter, as well as treatment, condition worsened with development confusion and obtundation. He was found to be hypernatremic. Hypernatremia was treated with D5 infusion, although had expressed refusal of multiple aspects of care. He was found to be aspirating, with aspiration pneumonia and on broad-spectrum antibiotic. He required ICU admission due to additional A-fib with RVR. With worsening deconditioning, generalized weakness experienced further worsening of swallowing. Was assessed by MRI brain which did not show CVA. Mental status gradually did show improvement with treatment, and during lucid periods he voiced his wishes with regards to further care. He declined feeding tube, although did receive several days of preceding PPN bridge support. Once he became stronger to further discuss goals of care, was assessed by 2 providers, with consistent wishes to adjust his CODE STATUS to DNR/DNI, not to pursue feeding tube, and limited supportive/medical care. This was continued, however, with further decline in condition gradually transitioned to supportive/comfort measures. He on 03/11 at 2230 with his caregiver at his side. Discharge Plan Discharge Patient Disposition: Condition: DS Attestations Time Spent in /Discharge Care*: greater than 30 min Quality - AMI: AMI present?: No Quality - Stroke: CVA present?: No Symptom Onset Unknown: No Quality - VTE: VTE present?: No Deep Vein Thrombosis/Pulmonary Embolism Present on Admission: No Coding Level of Care Code 80903 Total time (in minutes) for Discharge: 40 Diagnoses Generalized weakness R53.1 UTI (urinary tract infection) N39.0 Atrial fibrillation I48.91 Chronic obstructive pulmonary disease, unspecified COPD type J44.9 COPD type: unspecified COPD Falls frequently R29.6 Multilevel degenerative disc disease M53.9 Altered mental status R41.82
== END 2024-03-12 01:58 | disposition expired | DRG 698 ==
LOC: ER 05:55 → CSU 06:59 → MEDSURG 02-24 15:09 → CSU 02-27 00:46 → ICU 02-27 11:23 → MEDSURG 02-28 18:01 → ICU 02-29 03:37 → MEDSURG 03-05 00:15
PROVIDERS: Emergency Medicine; Internal Medicine; Admitting Provider Student in an Organized Health Care Education/Training Program; Emergency Provider Family Medicine; PCP Nurse Practitioner Family; Visit Provider Internal Medicine
DX: T83.510A Infection and inflammatory reaction due to cystostomy catheter, initial encounter (principal); E43 Unspecified severe protein-calorie malnutrition; J69.0 Pneumonitis due to inhalation of food and vomit; G93.41 Metabolic encephalopathy; B37.41 Candidal cystitis and urethritis; N30.01 Acute cystitis with hematuria; Z68.1 Body mass index [BMI] 19.9 or less, adult; E87.0 Hyperosmolality and hypernatremia; T83.090A Other mechanical complication of cystostomy catheter, initial encounter; R62.7 Adult failure to thrive; I95.9 Hypotension, unspecified; R00.1 Bradycardia, unspecified; Z53.29 Procedure and treatment not carried out because of patient's decision for other reasons; Z51.5 Encounter for palliative care; Z66 Do not resuscitate; B96.89 Other specified bacterial agents as the cause of diseases classified elsewhere; Y73.1 Therapeutic (nonsurgical) and rehabilitative gastroenterology and urology devices associated with adverse incidents; M25.511 Pain in right shoulder; R13.10 Dysphagia, unspecified; Z60.2 Problems related to living alone; R45.1 Restlessness and agitation; Z63.8 Other specified problems related to primary support group; Z99.3 Dependence on wheelchair; F32.A Depression, unspecified; K21.9 Gastro-esophageal reflux disease without esophagitis; M51.369 Other intervertebral disc degeneration, lumbar region without mention of lumbar back pain or lower extremity pain; I71.40 Abdominal aortic aneurysm, without rupture, unspecified; F17.210 Nicotine dependence, cigarettes, uncomplicated; G89.29 Other chronic pain; J44.9 Chronic obstructive pulmonary disease, unspecified; I48.0 Paroxysmal atrial fibrillation; Z86.73 Personal history of transient ischemic attack (TIA), and cerebral infarction without residual deficits; R29.6 Repeated falls; Z75.1 Person awaiting admission to adequate facility elsewhere; F43.12 Post-traumatic stress disorder, chronic; I10 Essential (primary) hypertension
CPT/HCPCS: 36415; 36416; 36600; 70450; 70496; 70498; 70551; 71045; 71260; 72131; 73060; 73090; 74176; 74177; 80048; 80051; 80053; 80202; 81001; 82330; 82550; 82805; 82962; 83605; 83735; 83880; 84100; 84145; 84443; 84484; 85025; 87040; 87077; 87086; 87106; 87150; 87186; 87205; 92507; 92523; 92526; 92610; 93005; 94640; 94664; 96365; 96366; 96372; 96374; 96375; 96376; 97110; 97162; 97165; 97530; 97535; 99285; A4222; J0283; J1630; J1650; J1940; J1956; J2020; J2060; J2185; J2270; J2405; J2470; J2543; J2765; J2919; J3370; J3480; J3490; J7040; J7050; J7070; J7626; J7799